=== PATIENT | female | born 1970 | race Caucasian/White ===

== ENCOUNTER 2016-08-31 13:06 | Emergency (ER) | payer OTHER ==
[2016-08-31] MEDS ORDERED: IPRATROPIUM 0.5 MG/2.5 ML NEBU INHALATION STA (13:54)
[2016-08-31] MEDS ORDERED: predniSONE 20 MG TAB PO STA (13:54)
[2016-08-31] MEDS ORDERED: ALBUTEROL NEBULIZED 2.5 MG/3 ML INHALATION STA ×2 (13:56→15:57)
[2016-08-31 14:22] LABS: Anisocytosis Slight; Basophils % (A) 0 %; CH 27.2; CHCM 30.5; Eosinophils # (A) 0.1 k/uL (0-0.7); Eosinophils % (A) 1 %; HCT 41.8 % (34.0-46.0); HDW 2.84; HGB 12.7 gm/dL (11.4-16.0); Hypochromasia Moderate; Luc % (Auto) 1; Lymphocytes # (A) 0.7 k/uL (1.0-4.8); Lymphocytes % (A) 8 %; MCH 27.2 pg (25.0-35.0); MCHC 30.4 g/dL (31.0-37.0); MCV 89.4 fL (80.0-100.0); Mean Platelet Volume 6.1; Monocytes # (A) 0.3 k/uL (0-1.0); Monocytes % (A) 4 %; Neutrophils # (A) 8.5 k/uL (1.3-7.7); Neutrophils % (A) 87 %; RBC 4.67 m/uL (3.80-5.40); RDW 16.5 % (11.5-15.5); WBC 9.7 k/uL (3.8-10.6); WBC (Perox) 9.46
[2016-08-31 14:30] LABS: Anion Gap 7 mmol/L; Blood Urea Nitrogen 18 mg/dL (7-17); Calcium 9.2 mg/dL (8.4-10.2); Carbon Dioxide 39 mmol/L (22-30); Chloride 94 mmol/L (98-107); Glucose 116 mg/dL (74-99); Non-African American GFR(MDRD) >60 (>60 ml/min/1.73 sqM); Sodium 140 mmol/L (137-145)
--- NOTE | 2016-08-31 14:56 | XR ---
EXAMINATION TYPE: XR chest 2V DATE OF EXAM: 08/31/2016 2:31 PM COMPARISON: Prior chest x-ray July 2016, June HISTORY: Difficulty breathing, emphysema TECHNIQUE: Frontal and lateral views of the chest are obtained. FINDINGS: Abnormal increased attenuation within the right upper lobe is not well seen, increased att enuation is better seen along the major fissure on the lateral exam. No pneumothorax or pleural effus ion. Cardiac mediastinal silhouette, pulmonary vascularity and eder are not significantly changed. Th ere are overlying cardiac leads. IMPRESSION: There is some thickening along the major fissure which appears improved as compared to p rior exam suggesting improvement in aeration.
--- NOTE | 2016-08-31 15:34 | ED ---
SOB HPI - General Chief Complaint: Shortness of Breath Stated Complaint: YOHANA Time Seen by Provider: 08/31/16 13:41 Source: patient, RN notes reviewed Mode of arrival: wheelchair Limitations: no limitations - History of Present Illness Initial Comments: This patient is a 45-year-old woman with history of COPD who presents with worsening of her underlying shortness of breath. The patient states that this been going on for 2-3 days. She is also having a bit of a nonproductive cough. She is not having any fever or chills, chest pain, change in urination, dark tarry or bloody stool. MD Complaint: shortness of breath -: days(s) Severity: moderate Consistency: constant Improves With: oxygen Worsens With: exertion Known History Of: COPD Context: recent URI Associated Symptoms: cough Treatments Prior to Arrival: bronchodilator - Related Data Home Medications Medication Instructions Recorded Confirmed Albuterol Inhaler [Ventolin Hfa 2 puff INHALATION RT-Q6H PRN 01/03/14 08/31/16 Inhaler] Omeprazole [PriLOSEC] 40 mg PO BID 01/03/14 08/31/16 Multivitamins, Thera [Multivitamin] 1 tab PO DAILY 12/24/14 08/31/16 risperiDONE 3 mg PO HS 12/24/14 08/31/16 traZODone HCL 300 mg PO HS 12/24/14 08/31/16 buPROPion SR [Wellbutrin SR] 150 mg PO HS 04/30/15 08/31/16 Albuterol Nebulized [Ventolin 2.5 mg INHALATION RT-Q4H 03/24/16 08/31/16 Nebulized] Aspirin [Aspirin EC] 325 mg PO HS 03/24/16 08/31/16 Ipratropium [place] [Atrovent Hfa] 2 puff INHALATION RT-QID 07/07/16 08/31/16 HYDROcodone/APAP 10-325MG [[place] 1 tab PO TID PRN 07/08/16 08/31/16 10-325] rOPINIRole HCL 0.5 mg PO HS 07/18/16 08/31/16 Previous Rx's Medication Instructions Recorded Budesonide-Formot 160-4.5 Mcg 2 puff INHALATION RT-BID puff 07/13/16 [Symbicort 160-4.5 Mcg Inhaler] Theophylline 24 Hour [Akhil-24] 300 mg PO BID 30 Days 07/21/16 Azithromycin [Zithromax Z-pack] 250 mg PO DIRECTED #6 tab 08/31/16 Doxycycline Hyclate [Vibramycin] 100 mg PO BID #14 cap 08/31/16 predniSONE 60 mg PO DAILY #30 tab 08/31/16 Allergies Allergy/AdvReac Type Severity Reaction Status Date / Time aripiprazole [From Abilify] Allergy Rash/Hives Verified 08/31/16 13:45 honey Allergy Rash/Hives Verified 08/31/16 13:45 methadone [Methadone] Allergy Itching Verified 08/31/16 13:45 naproxen Allergy Rash/Hives Verified 08/31/16 13:45 sulfamethoxazole Allergy Rash/Hives Verified 08/31/16 13:45 [From Bactrim] tetracycline [Tetracycline] Allergy Rash/Hives Verified 08/31/16 13:45 trimethoprim [From Bactrim] Allergy Rash/Hives Verified 08/31/16 13:45 adhesive tape AdvReac Rash/Hives Verified 08/31/16 13:45 codeine AdvReac Abdominal Verified 08/31/16 13:45 Pain ketorolac tromethamine AdvReac Vomiting Verified 08/31/16 13:45 [From Toradol] pregabalin [From Lyrica] AdvReac Unknown Verified 08/31/16 13:45 tramadol HCl [From Ultram] AdvReac SEIZURES Verified 08/31/16 13:45 tromethamine AdvReac Nausea & Verified 08/31/16 13:45 Vomiting Review of Systems ROS Statement: Those systems with pertinent positive or pertinent negative responses have been documented in the HPI. ROS Other: All systems not noted in ROS Statement are negative. Constitutional: Denies: fever, chills ENT: Reports: congestion Respiratory: Reports: cough, dyspnea, wheezes. 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, cervical and lumbar spine spondylosis, chronic migraines, peptic ulcer disease/gastric ulcers, carpal tunnel disease bilaterally, herniated disc at level of C5-C6 and C7, cervical cancer, depression, cachexia and malnourishment and significant loss and total body protein mass Last Myocardial Infarction Date:: UNK History of Any Multi-Drug Resistant Organisms: MRSA Date of last positivie culture/infection: 06/18/2015 MDRO Source:: SPUTUM Past Surgical History: Section, Cholecystectomy, Hysterectomy, Tubal Ligation Additional Past Surgical History / Comment(s): x 2, colonoscopy with benign polypectomy. Past Anesthesia/Blood Transfusion Reactions: No Reported Reaction Additional Past Anesthesia/Blood Transfusion Reaction / Comment(s): Pt has never recieved blood. Past Psychological History: Anxiety, Bipolar, Depression Additional Psychological History / Comment(s): Pt resides with her son jessica. She performs her own ADLs. She has home O2 at 5 L/[place] ATC. She does not drive but her son takes her places. she uses a walker as needed. Per her old medical record dated 07/06/14 pt was seen in [facility] ER for suicide attempt and admitted to psych. Relates that she is an ongoing tobacco smoker-smokes 3 CIG/ DAY. She does not have experience. She has no international travels. Smoking Status: Former smoker Past Alcohol Use History: None Reported Additional Past Alcohol Use History / Comment(s): ADMITS TO SMOKING 3 CIG PER DAY. Past Drug Use History: Marijuana Additional Drug Use History / Comment(s): OCC MARIJUANA USE - Past Family History Father Family Medical History: No Reported History Additional Family Medical History / Comment(s): WAS AN ALCOHOLIC Mother Family Medical History: Cancer Additional Family Medical History / Comment(s): AT AGE 54-BOWEL CANCER General Exam Limitations: no limitations General appearance: alert Head exam: Present: atraumatic, normocephalic Course Vital Signs 08/31/16 08/31/16 08/31/16 13:26 15:01 15:09 Temperature 98.3 F Pulse Rate 108 H 95 95 Respiratory 28 H Rate Blood Pressure 98/66 O2 Sat by Pulse 80 L Oximetry 08/31/16 08/31/16 08/31/16 15:10 16:11 16:20 Temperature Pulse Rate 94 101 H 98 Respiratory 18 Rate Blood Pressure 101/66 O2 Sat by Pulse 98 Oximetry 08/31/16 08/31/16 08/31/16 16:33 17:11 17:12 Temperature 98.2 F Pulse Rate 100 106 H 105 H Respiratory 20 20 Rate Blood Pressure 127/82 141/79 O2 Sat by Pulse 93 L 93 L Oximetry 08/31/16 17:25 Temperature Pulse Rate 105 H Respiratory Rate Blood Pressure O2 Sat by Pulse Oximetry Medical Decision Making - Medical Decision Making Patient is a 45-year-old woman with history of COPD who presents with exacerbation of the same. The patient is feeling better following 3 treatments and at this point states that she would like to go home with the increase in her prednisone. She is well aware of her condition and will return if there is worsening to state that she was prior. She will follow-up with her balance truer. - Lab Data Result diagrams: 08/31/16 14:09 08/31/16 14:09 Lab Results 08/31/16 08/31/16 08/31/16 Range/Units 14:09 14:09 14:09 WBC 9.7 (3.8-10.6) k/uL RBC 4.67 (3.80-5.40) m/uL Hgb 12.7 (11.4-16.0) gm/dL Hct 41.8 (34.0-46.0) % MCV 89.4 (80.0-100.0) fL MCH 27.2 (25.0-35.0) pg MCHC 30.4 L (31.0-37.0) g/dL RDW 16.5 H (11.5-15.5) % Plt Count 518 H (150-450) k/uL Neutrophils % 87 % Lymphocytes % 8 % Monocytes % 4 % Eosinophils % 1 % Basophils % 0 % Neutrophils # 8.5 H (1.3-7.7) k/uL Lymphocytes # 0.7 L (1.0-4.8) k/uL Monocytes # 0.3 (0-1.0) k/uL Eosinophils # 0.1 (0-0.7) k/uL Basophils # 0.0 (0-0.2) k/uL Hypochromasia Moderate Anisocytosis Slight D-Dimer (<0.60) mg/L FEU Sodium (137-145) mmol/L Potassium (3.5-5.1) mmol/L Chloride (98-107) mmol/L Carbon Dioxide (22-30) mmol/L Anion Gap mmol/L BUN (7-17) mg/dL Creatinine (0.52-1.04) mg/dL Est GFR (MDRD) Af Amer (>60 ml/min/1.73 sqM) Est GFR (MDRD) Non-Af (>60 ml/min/1.73 sqM) Glucose (74-99) mg/dL Calcium (8.4-10.2) mg/dL Troponin I <0.012 (0.000-0.034) ng/mL NT-Pro-B Natriuret Pep 78 pg/mL 08/31/16 08/31/16 Range/Units 14:09 14:09 WBC (3.8-10.6) k/uL RBC (3.80-5.40) m/uL Hgb (11.4-16.0) gm/dL Hct (34.0-46.0) % MCV (80.0-100.0) fL MCH (25.0-35.0) pg MCHC (31.0-37.0) g/dL RDW (11.5-15.5) % Plt Count (150-450) k/uL Neutrophils % % Lymphocytes % % Monocytes % % Eosinophils % % Basophils % % Neutrophils # (1.3-7.7) k/uL Lymphocytes # (1.0-4.8) k/uL Monocytes # (0-1.0) k/uL Eosinophils # (0-0.7) k/uL Basophils # (0-0.2) k/uL Hypochromasia Anisocytosis D-Dimer 0.20 (<0.60) mg/L FEU Sodium 140 (137-145) mmol/L Potassium 5.0 (3.5-5.1) mmol/L Chloride 94 L (98-107) mmol/L Carbon Dioxide 39 H (22-30) mmol/L Anion Gap 7 mmol/L BUN 18 H (7-17) mg/dL Creatinine 0.38 L (0.52-1.04) mg/dL Est GFR (MDRD) Af Amer >60 (>60 ml/min/1.73 sqM) Est GFR (MDRD) Non-Af >60 (>60 ml/min/1.73 sqM) Glucose 116 H (74-99) mg/dL Calcium 9.2 (8.4-10.2) mg/dL Troponin I (0.000-0.034) ng/mL NT-Pro-B Natriuret Pep pg/mL - EKG Data -: EKG Interpreted by Me EKG shows normal: sinus rhythm (Rate 99 bpm), axis (Left axis deviation), intervals (Normal intervals), ST-T waves (Normal) Rate: normal Critical Care Time Critical Care Time: Yes (35 minutes) Disposition Clinical Impression: COPD exacerbation Disposition: HOME SELF-CARE Condition: Fair Instructions: COPD (Chronic Obstructive Pulmonary Disease) (ED) Prescriptions: Azithromycin [Zithromax Z-pack] 250 mg PO DIRECTED #6 tab Doxycycline Hyclate [Vibramycin] 100 mg PO BID #14 cap predniSONE 60 mg PO DAILY #30 tab Referrals: Italo John MD [Primary Care Provider] - 1-2 days
[2016-08-31 16:33] VITALS: RESP 20
[2016-08-31] MEDS ORDERED: IPRATROPIUM-ALBUTEROL 3 ML NEB INHALATION STA (16:49)
[2016-08-31] MEDS ORDERED: AZITHROMYCIN 500 MG TAB PO STA (16:55)
[2016-08-31 17:12] VITALS: BP 141/79; TEMP 98.2
[2016-08-31 17:13] VITALS: PULSE 105
== END 2016-08-31 17:35 | disposition home or self-care (01) ==
LOC: EC 13:06
DX: J44.1 Chronic obstructive pulmonary disease with (acute) exacerbation (principal); K27.9 Peptic ulcer, site unspecified, unspecified as acute or chronic, without hemorrhage or perforation; K21.9 Gastro-esophageal reflux disease without esophagitis; J45.909 Unspecified asthma, uncomplicated; F32.9 Major depressive disorder, single episode, unspecified; Z99.81 Dependence on supplemental oxygen; Z79.899 Other long term (current) drug therapy; Z79.82 Long term (current) use of aspirin; Z79.52 Long term (current) use of systemic steroids; Z88.1 Allergy status to other antibiotic agents; Z88.2 Allergy status to sulfonamides; Z88.8 Allergy status to other drugs, medicaments and biological substances; Z91.018 Allergy to other foods; Z88.5 Allergy status to narcotic agent; Z91.048 Other nonmedicinal substance allergy status; Z85.41 Personal history of malignant neoplasm of cervix uteri; F17.210 Nicotine dependence, cigarettes, uncomplicated; E78.5 Hyperlipidemia, unspecified; M19.90 Unspecified osteoarthritis, unspecified site; M47.816 Spondylosis without myelopathy or radiculopathy, lumbar region; M50.222 Other cervical disc displacement at C5-C6 level
CPT/HCPCS: 99291; 36415; 94640 ×2; 93005; 85379; 83880; 80048; 84484; 85025; 71020; J7512

== ENCOUNTER 2016-09-04 01:38 | Inpatient (IN) | payer OTHER ==
[2016-09-04] MEDS ORDERED: ALBUTEROL NEB (CONC) 2.5 MG/0.5 ML INHALATION STA (01:47)
[2016-09-04] MEDS ORDERED: methylPREDNISolone SOD SUCCI 125 MG/2 ML VIAL IV STA (01:48)
[2016-09-04] MEDS ORDERED: IPRATROPIUM 0.5 MG/2.5 ML NEBU INHALATION STA (01:48)
[2016-09-04] MEDS ORDERED: SODIUM CHLORIDE 0.9% 1,000 ML IV STA (01:48)
--- NOTE | 2016-09-04 01:52 | ED ---
General Adult HPI - General Stated complaint: YOHANA Time Seen by Provider: 09/04/16 01:47 Source: patient, RN notes reviewed Mode of arrival: wheelchair Limitations: no limitations - History of Present Illness Initial comments: Patient is a pleasant 45-year-old female with severe chronic COPD. Patient presents with difficulty breathing, worse especially over the past few hours. Patient has been using continuous nebulizer for the last hour at home. Patient does have occasional cough with yellow sputum. No fevers. No chest pain. Patient has had similar symptoms multiple times previously. Patient has been on BiPAP previously. - Related Data Home Medications Medication Instructions Recorded Confirmed Albuterol Inhaler [Ventolin Hfa 2 puff INHALATION RT-Q6H PRN 01/03/14 09/04/16 Inhaler] Omeprazole [PriLOSEC] 40 mg PO BID 01/03/14 09/04/16 Multivitamins, Thera [Multivitamin] 1 tab PO DAILY 12/24/14 09/04/16 risperiDONE 3 mg PO HS 12/24/14 09/04/16 traZODone HCL 300 mg PO HS 12/24/14 09/04/16 buPROPion SR [Wellbutrin SR] 150 mg PO HS 04/30/15 09/04/16 Albuterol Nebulized [Ventolin 2.5 mg INHALATION RT-Q4H 03/24/16 09/04/16 Nebulized] Aspirin [Aspirin EC] 325 mg PO HS 03/24/16 09/04/16 Ipratropium [place] [Atrovent Hfa] 2 puff INHALATION RT-QID 07/07/16 09/04/16 HYDROcodone/APAP 10-325MG [[place] 1 tab PO TID PRN 07/08/16 09/04/16 10-325] rOPINIRole HCL 0.5 mg PO HS 07/18/16 09/04/16 Previous Rx's Medication Instructions Recorded Budesonide-Formot 160-4.5 Mcg 2 puff INHALATION RT-BID puff 07/13/16 [Symbicort 160-4.5 Mcg Inhaler] Theophylline 24 Hour [Akhil-24] 300 mg PO BID 30 Days 07/21/16 Azithromycin [Zithromax Z-pack] 250 mg PO DIRECTED #6 tab 08/31/16 Doxycycline Hyclate [Vibramycin] 100 mg PO BID #14 cap 08/31/16 predniSONE 60 mg PO DAILY #30 tab 08/31/16 Allergies Allergy/AdvReac Type Severity Reaction Status Date / Time aripiprazole [From Abilify] Allergy Rash/Hives Verified 08/31/16 13:45 honey Allergy Rash/Hives Verified 08/31/16 13:45 methadone [Methadone] Allergy Itching Verified 08/31/16 13:45 naproxen Allergy Rash/Hives Verified 08/31/16 13:45 sulfamethoxazole Allergy Rash/Hives Verified 08/31/16 13:45 [From Bactrim] tetracycline [Tetracycline] Allergy Rash/Hives Verified 08/31/16 13:45 trimethoprim [From Bactrim] Allergy Rash/Hives Verified 08/31/16 13:45 adhesive tape AdvReac Rash/Hives Verified 08/31/16 13:45 codeine AdvReac Abdominal Verified 08/31/16 13:45 Pain ketorolac tromethamine AdvReac Vomiting Verified 08/31/16 13:45 [From Toradol] pregabalin [From Lyrica] AdvReac Unknown Verified 08/31/16 13:45 tramadol HCl [From Ultram] AdvReac SEIZURES Verified 08/31/16 13:45 tromethamine AdvReac Nausea & Verified 08/31/16 13:45 Vomiting Review of Systems ROS Statement: Those systems with pertinent positive or pertinent negative responses have been documented in the HPI. ROS Other: All systems not noted in ROS Statement are negative. Constitutional: Denies: fever, chills Eyes: Denies: eye pain ENT: Denies: ear pain Respiratory: Reports: cough, dyspnea Cardiovascular: Denies: chest pain Endocrine: Reports: fatigue Gastrointestinal: Denies: abdominal pain Genitourinary: Denies: dysuria Musculoskeletal: Denies: back pain Skin: Denies: rash Neurological: Denies: weakness Past Medical History Past Medical History: Asthma, Cancer, Chest Pain / Angina, COPD, GERD/Reflux, Hyperlipidemia, Osteoarthritis (OA) Additional Past Medical History / Comment(s): 02 dependent at 5 L/m nasal cannula, advanced COPD with an FEV1 of 27% of predicted, 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, cervical and lumbar spine spondylosis, chronic migraines, peptic ulcer disease/gastric ulcers, carpal tunnel disease bilaterally, herniated disc at level of C5-C6 and C7, cervical cancer, depression, cachexia and malnourishment and significant loss and total body protein mass Last Myocardial Infarction Date:: UNK History of Any Multi-Drug Resistant Organisms: MRSA Date of last positivie culture/infection: 06/18/2015 MDRO Source:: SPUTUM Past Surgical History: Section, Cholecystectomy, Hysterectomy, Tubal Ligation Additional Past Surgical History / Comment(s): x 2, colonoscopy with benign polypectomy. Past Anesthesia/Blood Transfusion Reactions: No Reported Reaction Additional Past Anesthesia/Blood Transfusion Reaction / Comment(s): Pt has never recieved blood. Past Psychological History: Anxiety, Bipolar, Depression Additional Psychological History / Comment(s): Pt resides with her son jessica. She performs her own ADLs. She has home O2 at 5 L/[place] ATC. She does not drive but her son takes her places. she uses a walker as needed. Per her old medical record dated 07/06/14 pt was seen in [facility] ER for suicide attempt and admitted to psych. Relates that she is an ongoing tobacco smoker-smokes 3 CIG/ DAY. She does not have experience. She has no international travels. Smoking Status: Former smoker Past Alcohol Use History: None Reported Additional Past Alcohol Use History / Comment(s): ADMITS TO SMOKING 3 CIG PER DAY. Past Drug Use History: Marijuana Additional Drug Use History / Comment(s): OCC MARIJUANA USE - Past Family History Father Family Medical History: No Reported History Additional Family Medical History / Comment(s): WAS AN ALCOHOLIC Mother Family Medical History: Cancer Additional Family Medical History / Comment(s): AT AGE 54-BOWEL CANCER General Exam Limitations: no limitations General appearance: alert, in distress (Respiratory) Head exam: Present: atraumatic Eye exam: Present: normal appearance, PERRL ENT exam: Present: normal oropharynx Neck exam: Present: normal inspection Respiratory exam: Present: respiratory distress, wheezes, decreased breath sounds Cardiovascular Exam: Present: tachycardia GI/Abdominal exam: Present: soft. Absent: tenderness Extremities exam: Present: normal inspection. Absent: pedal edema, calf tenderness Neurological exam: Present: alert Psychiatric exam: Present: normal affect, normal mood Skin exam: Absent: rash Course Vital Signs 09/04/16 09/04/16 09/04/16 01:47 01:55 02:05 Temperature 98.0 F Pulse Rate 140 H 117 H 119 H Respiratory 28 H Rate Blood Pressure 140/82 O2 Sat by Pulse 94 L Oximetry 09/04/16 03:08 Temperature Pulse Rate 117 H Respiratory 18 Rate Blood Pressure 140/82 O2 Sat by Pulse 92 L Oximetry EKG Findings - EKG Comments: EKG Findings:: Sinus tachycardia 117. Normal intervals. Left axis. Poor R- wave progression. Septal Q waves. Medical Decision Making - Medical Decision Making Patient improved with BiPAP. Patient reevaluated and updated. Case discussed with Dr. Kaur, who will admit for Dr. John. Pulmonary will be consult. Admission orders written. - Lab Data Result diagrams: 09/04/16 02:09 09/04/16 02:09 Lab Results 09/04/16 09/04/16 Range/Units 02:09 02:09 WBC 16.3 H (3.8-10.6) k/uL RBC 4.88 (3.80-5.40) m/uL Hgb 13.0 (11.4-16.0) gm/dL Hct 43.1 (34.0-46.0) % MCV 88.2 (80.0-100.0) fL MCH 26.5 (25.0-35.0) pg MCHC 30.1 L (31.0-37.0) g/dL RDW 16.4 H (11.5-15.5) % Plt Count 556 H (150-450) k/uL Neutrophils % (Manual) 61.0 % Band Neutrophils % 26.0 % Lymphocytes % (Manual) 10.0 % Monocytes % (Manual) 3.0 % Neutrophils # (Manual) 14.2 H (1.3-7.7) k/uL Lymphocytes # (Manual) 1.6 (1.0-4.8) k/uL Monocytes # (Manual) 0.5 (0-1.0) k/uL Nucleated RBCs 0 (0-0) /100 WBC Manual Slide Review Performed Hypochromasia Moderate Anisocytosis Slight Sodium 145 (137-145) mmol/L Potassium 4.1 (3.5-5.1) mmol/L Chloride 97 L (98-107) mmol/L Carbon Dioxide 41 H* (22-30) mmol/L Anion Gap 7 mmol/L BUN 18 H (7-17) mg/dL Creatinine 0.30 L (0.52-1.04) mg/dL Est GFR (MDRD) Af Amer >60 (>60 ml/min/1.73 sqM) Est GFR (MDRD) Non-Af >60 (>60 ml/min/1.73 sqM) Glucose 132 H (74-99) mg/dL Calcium 9.1 (8.4-10.2) mg/dL Magnesium 1.9 (1.6-2.3) mg/dL Total Bilirubin 0.3 (0.2-1.3) mg/dL AST 20 (14-36) U/L ALT 33 (9-52) U/L Alkaline Phosphatase 71 (38-126) U/L Total Protein 6.5 (6.3-8.2) g/dL Albumin 3.7 (3.5-5.0) g/dL - Radiology Data Radiology results: image reviewed (Chest x-ray shows COPD and pulmonary fibrotic changes. No significant change compared to previous exam.) Critical Care Time Critical Care Time: Yes Total Critical Care Time: 34 Disposition Clinical Impression: Acute respiratory failure, Acute exacerbation of chronic obstructive airways disease Disposition: ADMITTED IP TO THIS HOSP Referrals: Italo John MD [Primary Care Provider] - 1-2 days
[2016-09-04 02:20] LABS: Anisocytosis Slight; CH 27.1; CHCM 30.9; HCT 43.1 % (34.0-46.0); HDW 3.07; Hypochromasia Moderate; Immature Gran Flag Marked; MCH 26.5 pg (25.0-35.0); MCHC 30.1 g/dL (31.0-37.0); MCV 88.2 fL (80.0-100.0); Mean Platelet Volume 6.8; RBC 4.88 m/uL (3.80-5.40); RDW 16.4 % (11.5-15.5); WBC 16.3 k/uL (3.8-10.6); WBC (Perox) 17.23
--- NOTE | 2016-09-04 02:21 | XR ---
EXAMINATION TYPE: XR chest 1V portable DATE OF EXAM: 09/04/2016 2:15 AM COMPARISON: 08/31/2016 HISTORY: Short of breath TECHNIQUE: Single frontal view of the chest is obtained. FINDINGS: There is no heart failure no confluent pneumonic infiltrate. There is pulmonary hyperinfla tion. Heart size is normal. There are no hilar masses. There is slight coarsening of interstitial [place]. IMPRESSION: COPD and pulmonary fibrotic changes. No significant change compared to last exam. Normal heart.
[2016-09-04 02:29] LABS: ALT 33 U/L (9-52); AST 20 U/L (14-36); Alkaline Phosphatase 71 U/L (38-126); Blood Urea Nitrogen 18 mg/dL (7-17); Calcium 9.1 mg/dL (8.4-10.2); Chloride 97 mmol/L (98-107); Glucose 132 mg/dL (74-99); Magnesium 1.9 mg/dL (1.6-2.3); Non-African American GFR(MDRD) >60 (>60 ml/min/1.73 sqM); Potassium 4.1 mmol/L (3.5-5.1); Sodium 145 mmol/L (137-145); Total Bilirubin 0.3 mg/dL (0.2-1.3); Total Protein 6.5 g/dL (6.3-8.2)
[2016-09-04 02:35] LABS: Anion Gap 7 mmol/L
[2016-09-04 02:37] LABS: Carbon Dioxide 41 mmol/L (22-30)
[2016-09-04 02:53] LABS: Add Differential Manual Differential
[2016-09-04 02:56] LABS: Manual Review Performed; Nucleated Red Blood Cells 0 /100 WBC (0-0); Total Cells Counted 200
[2016-09-04] MEDS ORDERED: LORazepam 2 MG/ML SYRINGE IV STA (03:39)
[2016-09-04] MEDS: IPRATROPIUM-ALBUTEROL 3 ML NEB INHALATION PRN ×2 (04:35→23:39)
[2016-09-04] MEDS: methylPREDNISolone SOD SUCCI 125 MG/2 ML VIAL IV SCH ×3 (06:09→17:04)
[2016-09-04] MEDS: IPRATROPIUM-ALBUTEROL 3 ML NEB INHALATION SCH ×4 (08:07→19:58)
[2016-09-04 11:18] LABS: Hemoglobin A1C 6.3 % (4.2-6.1)
[2016-09-04] MEDS: HYDROcodone/APAP 10-325MG 1 EACH TAB PO PRN (11:33)
[2016-09-04] MEDS: HEPARIN SODIUM,PORCINE 5,000 UNIT/ML 1 ML VIAL SQ SCH ×2 (11:33→17:05)
[2016-09-04] MEDS: THEOPHYLLINE 24 HOUR 300 MG CAP.ER.24H PO SCH (11:33)
[2016-09-04] MEDS: PANTOPRAZOLE 40 MG TABLET PO SCH ×2 (11:33→17:04)
[2016-09-04] MEDS: LEVOFLOXACIN 500MG-D5W PMX 500 MG in DEXTROSE/WATER 1 100ML.BAG IVPB SCH (11:36)
[2016-09-04 11:53] LABS: Glucose,Whole Blood 141 mg/dL (75-99)
[2016-09-04 12:44] LABS: ABG Base Excess 10.8 mmol/L; ABG HCO3 38 mmol/L (21-25); ABG PCO2 84 mmHg (35-45); ABG PH 7.28 (7.35-7.45); ABG PO2 73 mmHg (83-108); ABG TCO2 40 mmol/L (19-24)
[2016-09-04] MEDS: INSULIN LISPRO (humaLOG) 300 UNIT/3 ML VIAL SQ SCH ×3 (12:48→23:14)
--- NOTE | 2016-09-04 13:17 | P.CNPUL ---
History of Present Illness Consult date: 09/04/16 Reason for consult: dyspnea, COPD History of present illness: 45-year-old female patient with advanced end-stage COPD who has had multiple hospitalization for COPD exacerbation. In the past year of 2016, the patient at least 6 hospitalization last one being in June 2016. She unfortunately continues to smoke cigarettes. She is oxygen dependent. She is also steroid dependent and she's been taking 20 mg of prednisone a daily basis. The patient has been noncompliant to smoking . She has been maintained on a combination of Spiriva and Symbicort on outpatient basis in addition to her daily prednisone. Her baseline FEV1 is around 27% of predicted. She has chronic hypoxic respiratory failure. She has had previous MRSA pneumonia. The patient came in for increased shortness of breath and at time of my evaluation this morning the patient was in considerable respiratory distress and she was using accessory muscles of breathing. She was placed on BiPAP accordingly at a pressure of 10 over 5 cm of water. Blood gases while the patient 100% nonrebreather showed a pH of 7.28 with a pCO2 of 82 and pO2 of 73. Chest x-ray shows no evidence of any pneumonia and there is extensive hyperinflation. No fever. No chills. No change in mental status. No nausea. No vomiting. She has a congested cough. She is unable to bring up any sputum. Review of Systems Patient is in considerable respiratory distress. She is placed back on the BiPAP at this point. Rest of the positive findings are most above. She has been noncompliant to treatment. She is been excessively cachectic and malnourished. She has significant loss and total body protein mass. Past Medical History Past Medical History: Asthma, Cancer, Chest Pain / Angina, COPD, GERD/Reflux, Hyperlipidemia, Osteoarthritis (OA) Additional Past Medical History / Comment(s): COPD which is been end-stage with frequent hospitalization for acute COPD exacerbation. The patient has chronic hypoxic and hypercapnic respiratory failure. 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, cervical and lumbar spine spondylosis, chronic migraines, peptic ulcer disease/gastric ulcers, carpal tunnel disease bilaterally, herniated disc at level of C5-C6 and C7, cervical cancer, depression, cachexia and malnourishment and significant loss and total body protein mass Last Myocardial Infarction Date:: UNK History of Any Multi-Drug Resistant Organisms: MRSA Date of last positivie culture/infection: 06/18/2015 MDRO Source:: SPUTUM Past Surgical History: Section, Cholecystectomy, Hysterectomy, Tubal Ligation Additional Past Surgical History / Comment(s): x 2, colonoscopy with benign polypectomy. Past Anesthesia/Blood Transfusion Reactions: No Reported Reaction Additional Past Anesthesia/Blood Transfusion Reaction / Comment(s): Pt has never recieved blood. Past Psychological History: Anxiety, Bipolar, Depression Additional Psychological History / Comment(s): Pt resides with her son jessica. She performs her own ADLs. She has home O2 at 5 L/[place] ATC. She does not drive but her son takes her places. she uses a walker as needed. Per her old medical record dated 07/06/14 pt was seen in [facility] ER for suicide attempt and admitted to psych. Relates that she is an ongoing tobacco smoker-smokes 3 CIG/ DAY. She does not have experience. She has no international travels. Smoking Status: Former smoker Past Alcohol Use History: None Reported Additional Past Alcohol Use History / Comment(s): ADMITS TO SMOKING 3 CIG PER DAY. Past Drug Use History: Marijuana Additional Drug Use History / Comment(s): OCC MARIJUANA USE - Past Family History Father Family Medical History: No Reported History Additional Family Medical History / Comment(s): WAS AN ALCOHOLIC Mother Family Medical History: Cancer Additional Family Medical History / Comment(s): AT AGE 54-BOWEL CANCER Medications and Allergies Home Medications Medication Instructions Recorded Confirmed Type Albuterol Inhaler [Ventolin Hfa 2 puff INHALATION RT-Q6H PRN 01/03/14 09/04/16 History Inhaler] Omeprazole [PriLOSEC] 40 mg PO BID 01/03/14 09/04/16 History Multivitamins, Thera [Multivitamin] 1 tab PO DAILY 12/24/14 09/04/16 History risperiDONE 3 mg PO HS 12/24/14 09/04/16 History traZODone HCL 300 mg PO HS 12/24/14 09/04/16 History buPROPion SR [Wellbutrin SR] 150 mg PO HS 04/30/15 09/04/16 History Albuterol Nebulized [Ventolin 2.5 mg INHALATION RT-Q4H 03/24/16 09/04/16 History Nebulized] Aspirin [Aspirin EC] 325 mg PO HS 03/24/16 09/04/16 History Ipratropium [place] [Atrovent Hfa] 2 puff INHALATION RT-QID 07/07/16 09/04/16 History HYDROcodone/APAP 10-325MG [[place] 1 tab PO TID PRN 07/08/16 09/04/16 History 10-325] rOPINIRole HCL 0.5 mg PO HS 07/18/16 09/04/16 History predniSONE 20 mg PO DAILY 09/04/16 09/04/16 History Allergies Allergy/AdvReac Type Severity Reaction Status Date / Time aripiprazole [From Abilify] Allergy Rash/Hives Verified 09/04/16 11:34 honey Allergy Rash/Hives Verified 09/04/16 11:34 methadone [Methadone] Allergy Itching Verified 09/04/16 11:34 naproxen Allergy Rash/Hives Verified 09/04/16 11:34 sulfamethoxazole Allergy Rash/Hives Verified 09/04/16 11:34 [From Bactrim] tetracycline [Tetracycline] Allergy Rash/Hives Verified 09/04/16 11:34 trimethoprim [From Bactrim] Allergy Rash/Hives Verified 09/04/16 11:34 adhesive tape AdvReac Rash/Hives Verified 09/04/16 11:34 codeine AdvReac Abdominal Verified 09/04/16 11:34 Pain ketorolac tromethamine AdvReac Vomiting Verified 09/04/16 11:34 [From Toradol] pregabalin [From Lyrica] AdvReac Unknown Verified 09/04/16 11:34 tramadol HCl [From Ultram] AdvReac SEIZURES Verified 09/04/16 11:34 tromethamine AdvReac Nausea & Verified 09/04/16 11:34 Vomiting Physical Exam Vitals: Vital Signs Temp Pulse Pulse Resp BP BP Pulse Ox 09/04/16 12:00 128 H 09/04/16 11:47 130 H 09/04/16 08:21 126 H 09/04/16 08:09 120 H 09/04/16 07:57 120 H 09/04/16 07:49 98.1 F 119 H 18 153/73 94 L 09/04/16 05:37 118 H 24 09/04/16 04:45 124 H 09/04/16 04:35 122 H 09/04/16 04:20 98.0 F 115 H 24 166/86 94 L 09/04/16 03:57 97.8 F 125 H 22 163/91 92 L Intake and Output 09/03/16 09/04/16 09/04/16 22:59 06:59 14:59 Output Total 0 Balance 0 Output: Urine 0 Other: # Voids 0 # Bowel Movements 0 Weight 45.2 kg Thin and frail and cachectic female patient a [id number] degree of respirator distress and she is using a time so it is a muscle breathing. She is also performing pursed of breathing.Head exam was generally normal. There was no scleral icterus or corneal arcus. Mucous membranes were moist. Neck is supple there is no JVDs no goiter or neck masses. Lungs sounds are markedly diminished and there is diffuse expiratory wheezes throughout lung is bilaterally and there is progression of expiratory phase of breathing.Cardiac exam revealed the PMI to be normally situated and sized. The rhythm was regular and no extrasystoles were noted during several minutes of auscultation. The first and second heart sounds were normal and physiologic splitting of the second heart sound was noted. There were no murmurs, rubs, clicks, or gallops.Abdominal exam revealed normal bowel sounds. The abdomen was soft, non- tender, and without masses, organomegaly, or appreciable enlargement of the abdominal aorta. Examination of the extremities revealed easily palpable radial , femoral and pedal pulses. There was no cyanosis, clubbing or edema. neurologically she is still awake and following commands and answering questions. She has extensive muscle atrophy and she is quite cachectic with significant loss and total body protein mass. Results - Laboratory Findings CBC and BMP: 09/04/16 02:09 09/04/16 02:09 ABG ABG pH 7.28 (7.35-7.45) L 09/04/16 12:22 ABG pCO2 84 mmHg (35-45) H* 09/04/16 12:22 ABG pO2 73 mmHg (83-108) L 09/04/16 12:22 ABG O2 Saturation 91.0 % (94-97) L 09/04/16 12:22 Abnormal lab findings: Abnormal Labs 09/04/16 09/04/16 09/04/16 05:06 05:06 11:50 ABG pH ABG pCO2 ABG pO2 ABG HCO3 ABG Total CO2 ABG O2 Saturation POC Glucose (mg/dL) 141 H Hemoglobin A1c 6.3 H Plasma Lactic Acid Tim 0.6 L 09/04/16 12:22 ABG pH 7.28 L ABG pCO2 84 H* ABG pO2 73 L ABG HCO3 38 H ABG Total CO2 40 H ABG O2 Saturation 91.0 L POC Glucose (mg/dL) Hemoglobin A1c Plasma Lactic Acid Tim - Diagnostic Findings Chest x-ray: image reviewed Assessment and Plan Plan: Assessment 1 advanced end-stage COPD with a baseline FEV1 of 27% of predicted 2 acute COPD exacerbation with worsening shortness of breath 3 acute on top of chronic hypercapnic respiratory failure with a component of respiratory acidosis on the blood gas 4 chronic hypoxic respiratory failure with further decompensation in her oxygenation due to COPD exacerbation. Chest x-ray remains free of any pulmonary infiltrates. 4 chronic hypoxic respiratory failure and the patient has been maintained on a oxygen between 3-4 L/m nasal cannula 5 chronic steroid dependence and the patient has been taking Klonopin grams of prednisone a daily basis 6 cachectic/catabolic state secondary to advanced COPD 7 nicotine addiction/smoking 8 cervical cancer 9 cervical spondylosis and lumbar spine spondylosis 10 peptic ulcer disease 11 remote history of MRSA pneumonia Plan Put the patient needs to back on the BiPAP. Continue the bronchodilators including a bit and Atrovent about treatments around the clock. Put the patient a combination of Perforomist and Pulmicort overestimates twice a day. IV Solu Medrol 60 milligrams's every 6 hours. Restart theophylline. Levaquin as an empiric antibiotic coverage. Nicotine replacement therapy with a patch. Smoking cessation counseling. Monitor the surgical status very closely and monitor the blood gases. May need intubation if there is further decompensation the breathing. We'll continue to follow. Outcome is obviously poor long-term basis due to advanced lung disease.
--- NOTE | 2016-09-04 15:21 | P.HPIM ---
History of Present Illness H&P Date: 09/04/16 Chief Complaint: YOHANA 44-year-old with advanced COPD that is admitted multiple times in the hospital with acute exacerbation and difficulty breathing. Comes in to the hospital with difficulty breathing that has progressively gotten worse over last few days. Patient continues to smoke cigarettes at this time. Patient has been taking 20 mg of prednisone at home and maintained on breathing treatments however patient comes in the hospital with risks worsening of breathing. Patient currently is lethargic. Patient was noted to have a arterial blood gas post slightly acidotic. She was started on BiPAP was given a dose of Solu- Medrol 125 mg and given breathing treatments. Patient however has been refusing BiPAP and removes it. Patient continues to have a cough at this time however is not able to bring up any sputum. Patient's FEV1 is around 27% on the last pulmonary function tests. Chest x-ray did not reveal any acute abnormalities Review of Systems Deferred Past Medical History Past Medical History: Asthma, Cancer, Chest Pain / Angina, COPD, GERD/Reflux, Hyperlipidemia, Osteoarthritis (OA) Additional Past Medical History / Comment(s): COPD which is been end-stage with frequent hospitalization for acute COPD exacerbation. The patient has chronic hypoxic and hypercapnic respiratory failure. 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, cervical and lumbar spine spondylosis, chronic migraines, peptic ulcer disease/gastric ulcers, carpal tunnel disease bilaterally, herniated disc at level of C5-C6 and C7, cervical cancer, depression, cachexia and malnourishment and significant loss and total body protein mass Last Myocardial Infarction Date:: UNK History of Any Multi-Drug Resistant Organisms: MRSA Date of last positivie culture/infection: 06/18/2015 MDRO Source:: SPUTUM Past Surgical History: Section, Cholecystectomy, Hysterectomy, Tubal Ligation Additional Past Surgical History / Comment(s): x 2, colonoscopy with benign polypectomy. Past Anesthesia/Blood Transfusion Reactions: No Reported Reaction Additional Past Anesthesia/Blood Transfusion Reaction / Comment(s): Pt has never recieved blood. Past Psychological History: Anxiety, Bipolar, Depression Additional Psychological History / Comment(s): Pt resides with her son jessica. She performs her own ADLs. She has home O2 at 5 L/[place] ATC. She does not drive but her son takes her places. she uses a walker as needed. Per her old medical record dated 07/06/14 pt was seen in [facility] ER for suicide attempt and admitted to psych. Relates that she is an ongoing tobacco smoker-smokes 3 CIG/ DAY. She does not have experience. She has no international travels. Smoking Status: Former smoker Past Alcohol Use History: None Reported Additional Past Alcohol Use History / Comment(s): ADMITS TO SMOKING 3 CIG PER DAY. Past Drug Use History: Marijuana Additional Drug Use History / Comment(s): OCC MARIJUANA USE - Past Family History Father Family Medical History: No Reported History Additional Family Medical History / Comment(s): WAS AN ALCOHOLIC Mother Family Medical History: Cancer Additional Family Medical History / Comment(s): AT AGE 54-BOWEL CANCER Medications and Allergies Home Medications Medication Instructions Recorded Confirmed Type Albuterol Inhaler [Ventolin Hfa 2 puff INHALATION RT-Q6H PRN 01/03/14 09/04/16 History Inhaler] Omeprazole [PriLOSEC] 40 mg PO BID 01/03/14 09/04/16 History Multivitamins, Thera [Multivitamin] 1 tab PO DAILY 12/24/14 09/04/16 History risperiDONE 3 mg PO HS 12/24/14 09/04/16 History traZODone HCL 300 mg PO HS 12/24/14 09/04/16 History buPROPion SR [Wellbutrin SR] 150 mg PO HS 04/30/15 09/04/16 History Albuterol Nebulized [Ventolin 2.5 mg INHALATION RT-Q4H 03/24/16 09/04/16 History Nebulized] Aspirin [Aspirin EC] 325 mg PO HS 03/24/16 09/04/16 History Ipratropium [place] [Atrovent Hfa] 2 puff INHALATION RT-QID 07/07/16 09/04/16 History HYDROcodone/APAP 10-325MG [[place] 1 tab PO TID PRN 07/08/16 09/04/16 History 10-325] rOPINIRole HCL 0.5 mg PO HS 07/18/16 09/04/16 History predniSONE 20 mg PO DAILY 09/04/16 09/04/16 History Allergies Allergy/AdvReac Type Severity Reaction Status Date / Time aripiprazole [From Abiliy] Allergy Rash/Hives Verified 09/04/16 11:34 honey Allergy Rash/Hives Verified 09/04/16 11:34 methadone [Methadone] Allergy Itching Verified 09/04/16 11:34 naproxen Allergy Rash/Hives Verified 09/04/16 11:34 sulfamethoxazole Allergy Rash/Hives Verified 09/04/16 11:34 [From Bactrim] tetracycline [Tetracycline] Allergy Rash/Hives Verified 09/04/16 11:34 trimethoprim [From Bactrim] Allergy Rash/Hives Verified 09/04/16 11:34 adhesive tape AdvReac Rash/Hives Verified 09/04/16 11:34 codeine AdvReac Abdominal Verified 09/04/16 11:34 Pain ketorolac tromethamine AdvReac Vomiting Verified 09/04/16 11:34 [From Toradol] pregabalin [From Lyrica] AdvReac Unknown Verified 09/04/16 11:34 tramadol HCl [From Ultram] AdvReac SEIZURES Verified 09/04/16 11:34 tromethamine AdvReac Nausea & Verified 09/04/16 11:34 Vomiting Physical Exam Vitals: Vital Signs Temp Pulse Pulse Resp BP BP Pulse Ox 09/04/16 12:00 98.0 F 128 H 120 H 18 144/76 96 09/04/16 11:47 130 H 09/04/16 08:21 126 H 09/04/16 08:09 120 H 09/04/16 07:57 120 H 09/04/16 07:49 98.1 F 119 H 18 153/73 94 L 09/04/16 05:37 118 H 24 09/04/16 04:45 124 H 09/04/16 04:35 122 H 09/04/16 04:20 98.0 F 115 H 24 166/86 94 L 09/04/16 03:57 97.8 F 125 H 22 163/91 92 L Intake and Output 09/04/16 09/04/16 09/04/16 06:59 14:59 22:59 Output Total 600 Balance -600 Output: Urine 600 Other: # Voids 0 2 # Bowel Movements 0 Weight 45.2 kg Gen. appearance patient is lethargic Follow lungs silent chest no wheezing or rhonchi patient Heart regular rate and rhythm no murmurs appreciated Abdomen is soft nontender no organomegaly Lower activities no edema appreciated Neurologic exam is deferred due to patient's current clinical condition. Results CBC & Chem 7: 09/04/16 02:09 09/04/16 02:09 Labs: Abnormal Lab Results - Last 24 Hours (Table) 09/04/16 09/04/16 09/04/16 Range/Units 05:06 05:06 11:50 ABG pH (7.35-7.45) ABG pCO2 (35-45) mmHg ABG pO2 (83-108) mmHg ABG HCO3 (21-25) mmol/L ABG Total CO2 (19-24) mmol/L ABG O2 Saturation (94-97) % POC Glucose (mg/dL) 141 H (75-99) mg/dL Hemoglobin A1c 6.3 H (4.2-6.1) % Plasma Lactic Acid Tim 0.6 L (0.7-2.0) mmol/L 09/04/16 Range/Units 12:22 ABG pH 7.28 L (7.35-7.45) ABG pCO2 84 H* (35-45) mmHg ABG pO2 73 L (83-108) mmHg ABG HCO3 38 H (21-25) mmol/L ABG Total CO2 40 H (19-24) mmol/L ABG O2 Saturation 91.0 L (94-97) % POC Glucose (mg/dL) (75-99) mg/dL Hemoglobin A1c (4.2-6.1) % Plasma Lactic Acid Tim (0.7-2.0) mmol/L Thrombosis Risk Factor Assmnt - Choose All That Apply Any of the Below Risk Factors Present?: Yes Each Factor Represents 1 point: Abnormal pulmonary function (COPD), Age 41-60 years Thrombosis Risk Factor Assessment Total Risk Factor Score: 2 Thrombosis Risk Factor Assessment Level: Low Risk Assessment and Plan Plan: Acute metabolic encephalopathy #2 acute on chronic hypoxic hypercapnic respiratory failure secondary to an acute exacerbation of COPD #3 ongoing tobacco use #4 nondistended respiratory acidosis #5 moderate to severe protein calorie malnutrition secondary to advanced COPD #6 cervical cancer #7 patient is currently lethargic patient should be maintained on BiPAP compliance is necessary. Continue IV steroids and breathing treatment. Theophylline was also restarted by pulmonary team.. GI prophylaxis for the high -dose steroids.
[2016-09-04 17:19] LABS: Glucose,Whole Blood 130 mg/dL (75-99)
[2016-09-04] MEDS ORDERED: IPRATROPIUM-ALBUTEROL 3 ML NEB INHALATION STA (18:04)
[2016-09-04] MEDS: ALPRAZolam 0.25 MG TAB PO PRN (18:35)
[2016-09-04 18:40] LABS: ABG PH 7.31 (7.35-7.45)
[2016-09-04 18:41] LABS: ABG Base Excess 10.3 mmol/L; ABG HCO3 37 mmol/L (21-25); ABG PCO2 76 mmHg (35-45); ABG PO2 96 mmHg (83-108); ABG TCO2 39 mmol/L (19-24)
[2016-09-04] MEDS ORDERED: PHENYLEPHRINE 10 MG/ML VIAL ONE (19:01)
[2016-09-04] MEDS ORDERED: ROCURONIUM BROMIDE 10 MG/ML 10 ML VIAL IV ONE (19:01)
[2016-09-04] MEDS ORDERED: PROPOFOL 10 MG/ML 20 ML VIAL IV ONE (19:01)
[2016-09-04] MEDS ORDERED: MIDAZOLAM 2 MG/2 ML VIAL ONE (19:01)
[2016-09-04] MEDS: PROPOFOL 500 MG in EMPTY BAG 1 BAG IV SCH (19:30)
[2016-09-04 19:31] LABS: Glucose,Whole Blood 146 mg/dL (75-99)
--- NOTE | 2016-09-04 19:37 | XR ---
EXAMINATION TYPE: XR chest 1V portable DATE OF EXAM: 09/04/2016 7:33 PM Comparison: 09/04/2016 Clinical History: 45-year-old female intubated, assess tube placement. Findings: ET tube tip is satisfactory. NG tube courses below the diaphragm. Heart is normal size. Hyperinflation with mild interstitial prominence. No consolidation or pleural e ffusion. Impression: 1. Satisfactory ET tube. 2. COPD and chronic changes. No definite acute process.
[2016-09-04 19:51] LABS: ABG Base Excess 9.9 mmol/L; ABG HCO3 38 mmol/L (21-25); ABG PCO2 101 mmHg (35-45); ABG PO2 144 mmHg (83-108); ABG TCO2 41 mmol/L (19-24)
[2016-09-04] MEDS: BUDESONIDE 0.5 MG/2 ML NEBU INHALATION SCH (19:58)
[2016-09-04] MEDS: FORMOTEROL FUMARATE 20 MCG/2 ML NEBU INHALATION SCH (19:58)
[2016-09-04] MEDS ORDERED: HYDROmorphone 1 MG/ML 1 ML SYRINGE IVP STA (20:00)
[2016-09-04] MEDS ORDERED: ARTIFICIAL TEARS-HYPROMELLOSE DROPS 15 ML BTL BOTH EYES PRN (20:23)
[2016-09-04] MEDS ORDERED: ACETAMINOPHEN IV (For NPO) 1,000 MG in EMPTY BAG 1 BAG IVPB ONE (20:23)
[2016-09-04] MEDS ORDERED: NALOXONE 0.4 MG/ML 1 ML VIAL IV PRN (20:23)
[2016-09-04] MEDS: SODIUM CHLORIDE 0.9% 1,000 ML IV SCH (20:30)
[2016-09-04 20:31] LABS: ALT 32 U/L (9-52); AST 41 U/L (14-36); Alkaline Phosphatase 74 U/L (38-126); Basophils # (A) 0.1 k/uL (0-0.2); Basophils % (A) 1 %; Blood Urea Nitrogen 16 mg/dL (7-17); CH 26.5; CHCM 28.7; Calcium 8.9 mg/dL (8.4-10.2); Chloride 96 mmol/L (98-107); Eosinophils # (A) 0.1 k/uL (0-0.7); Eosinophils % (A) 0 %; Glucose 148 mg/dL (74-99); HCT 41.2 % (34.0-46.0); HDW 2.94; HGB 12.1 gm/dL (11.4-16.0); Hypochromasia Marked; Luc % (Auto) 1; Lymphocytes % (A) 5 %; MCH 27.2 pg (25.0-35.0); MCHC 29.4 g/dL (31.0-37.0); MCV 92.7 fL (80.0-100.0); Magnesium 1.9 mg/dL (1.6-2.3); Mean Platelet Volume 6.8; Monocytes # (A) 0.7 k/uL (0-1.0); Monocytes % (A) 3 %; Neutrophils # (A) 18.6 k/uL (1.3-7.7); Neutrophils % (A) 91 %; Non-African American GFR(MDRD) >60 (>60 ml/min/1.73 sqM); Phosphorous 3.4 mg/dL (2.5-4.5); Potassium 4.7 mmol/L (3.5-5.1); RBC 4.45 m/uL (3.80-5.40); RDW 15.9 % (11.5-15.5); Sodium 142 mmol/L (137-145); Total Bilirubin 0.4 mg/dL (0.2-1.3); Total Protein 6.4 g/dL (6.3-8.2); WBC 20.5 k/uL (3.8-10.6); WBC (Perox) 20.39
[2016-09-04 20:35] LABS: Anion Gap 6 mmol/L
[2016-09-04] MEDS ORDERED: HYDROmorphone 1 MG/ML 1 ML SYRINGE ONE (20:40)
[2016-09-04 20:45] LABS: Carbon Dioxide 40 mmol/L (22-30)
[2016-09-04 20:59] LABS: Appearance,Urine Clear (Clear); Bilirubin,Urine Negative (Negative); Glucose,Urine (UA) Negative (Negative); Ketones,Urine Negative (Negative); Leukocyte Esterase,Urine Negative (Negative); Nitrite,Urine Negative (Negative); PH, Urine 6.5 (5.0-8.0); Protein,Urine Trace (Negative); Specific Gravity,Urine 1.007 (1.001-1.035); UA Billing (MACRO vs. MICRO) CHEM; Urobilinogen,Urine <2.0 mg/dL (<2.0)
[2016-09-04] MEDS: CHLORHEXIDINE GLUCONATE 15 ML CUP MUCOUS MEM SCH (22:17)
[2016-09-05] MEDS: HYDROmorphone 2 MG/ML 1 ML SYRINGE IVP PRN ×7 (00:11→23:42)
[2016-09-05] MEDS: INSULIN LISPRO (humaLOG) 300 UNIT/3 ML VIAL SQ SCH ×4 (00:15→17:37)
[2016-09-05 00:16] LABS: Glucose,Whole Blood 124 mg/dL (75-99)
[2016-09-05] MEDS ORDERED: ACETAMINOPHEN IV (For NPO) 1,000 MG in EMPTY BAG 1 BAG IVPB PRN (00:30)
[2016-09-05] MEDS: buPROPion SR 150 MG TABLET.ER PO SCH ×2 (01:32→23:32)
[2016-09-05] MEDS: ASPIRIN 325 MG TAB PO SCH ×2 (01:32→23:32)
[2016-09-05] MEDS: risperiDONE 1 MG TAB PO SCH ×2 (01:33→23:33)
[2016-09-05] MEDS: traZODone HCL 100 MG TAB PO SCH ×2 (01:34→23:33)
[2016-09-05] MEDS: THEOPHYLLINE 24 HOUR 300 MG CAP.ER.24H PO SCH ×2 (01:34→08:06)
[2016-09-05] MEDS: methylPREDNISolone SOD SUCCI 125 MG/2 ML VIAL IV SCH ×4 (01:35→17:35)
[2016-09-05] MEDS: HEPARIN SODIUM,PORCINE 5,000 UNIT/ML 1 ML VIAL SQ SCH ×4 (02:20→23:34)
[2016-09-05] MEDS: PROPOFOL 500 MG in EMPTY BAG 1 BAG IV SCH ×4 (02:42→22:37)
[2016-09-05] MEDS: IPRATROPIUM-ALBUTEROL 3 ML NEB INHALATION PRN (03:31)
[2016-09-05 05:02] LABS: Anisocytosis Slight; Basophils # (A) 0.1 k/uL (0-0.2); Basophils % (A) 0 %; CH 26.8; CHCM 29.4; Eosinophils % (A) 0 %; HCT 36.5 % (34.0-46.0); HDW 2.92; HGB 10.5 gm/dL (11.4-16.0); Hypochromasia Marked; Luc # (Auto) 0.19; Luc % (Auto) 1; Lymphocytes # (A) 0.9 k/uL (1.0-4.8); Lymphocytes % (A) 6 %; MCH 26.4 pg (25.0-35.0); MCHC 28.8 g/dL (31.0-37.0); MCV 91.4 fL (80.0-100.0); Mean Platelet Volume 7.1; Monocytes # (A) 0.5 k/uL (0-1.0); Monocytes % (A) 4 %; Neutrophils # (A) 13.3 k/uL (1.3-7.7); Neutrophils % (A) 89 %; RBC 3.99 m/uL (3.80-5.40); RDW 16.2 % (11.5-15.5); WBC 15.1 k/uL (3.8-10.6); WBC (Perox) 15.33
[2016-09-05 05:14] LABS: Anion Gap 5 mmol/L; Blood Urea Nitrogen 19 mg/dL (7-17); Calcium 8.8 mg/dL (8.4-10.2); Carbon Dioxide 38 mmol/L (22-30); Chloride 99 mmol/L (98-107); Glucose 98 mg/dL (74-99); Magnesium 1.8 mg/dL (1.6-2.3); Non-African American GFR(MDRD) >60 (>60 ml/min/1.73 sqM); Phosphorous 2.8 mg/dL (2.5-4.5); Potassium 4.8 mmol/L (3.5-5.1); Sodium 142 mmol/L (137-145)
[2016-09-05 05:25] LABS: ABG PH 7.32 (7.35-7.45)
[2016-09-05 05:26] LABS: ABG Base Excess 10.1 mmol/L; ABG HCO3 36 mmol/L (21-25); ABG PCO2 74 mmHg (35-45); ABG PO2 83 mmHg (83-108); ABG TCO2 39 mmol/L (19-24)
[2016-09-05] MEDS ORDERED: Phosphorus Replacement Protoco 1 EACH MISC MISCELLANE PRN (05:39)
[2016-09-05] MEDS ORDERED: Potassium Replacement Protocol 1 EACH MISC MISCELLANE PRN (05:39)
[2016-09-05] MEDS ORDERED: Magnesium Replacement Protocol 1 EACH MISC MISCELLANE PRN (05:39)
[2016-09-05 06:39] LABS: Glucose,Whole Blood 121 mg/dL (75-99)
--- NOTE | 2016-09-05 07:42 | XR ---
EXAMINATION TYPE: XR chest 1V portable DATE OF EXAM: 09/05/2016 6:30 AM Comparison: 09/04/2016 Clinical History: 45 year-old female tube placement Findings: Heart is normal size. Aorta and pulmonary vasculature within normal limits. Hyperinflation with mild interstitial prominence similar to prior. Patchy peripheral right midlung opacity is noted. There is some overlying external artifact in this region. ET tube is satisfactory. NG tube courses below the d iaphragm. NG tube sidehole is at the level of the GE junction. Impression: COPD and some patchy atelectasis or infiltrate at the peripheral right midlung. Some overlying kidney puller al artifact is present in this region.
[2016-09-05] MEDS: MAGNESIUM SULFATE-D5W PMX 1 GM in DEXTROSE/WATER 1 100ML.BAG IVPB SCH ×2 (07:56→10:22)
[2016-09-05] MEDS: PANTOPRAZOLE 40 MG/10 ML VIAL IV SCH (08:04)
[2016-09-05] MEDS: CHLORHEXIDINE GLUCONATE 15 ML CUP MUCOUS MEM SCH ×2 (08:06→20:30)
[2016-09-05] MEDS: FORMOTEROL FUMARATE 20 MCG/2 ML NEBU INHALATION SCH ×2 (08:08→19:47)
[2016-09-05] MEDS: BUDESONIDE 0.5 MG/2 ML NEBU INHALATION SCH ×2 (08:08→19:47)
[2016-09-05] MEDS: IPRATROPIUM-ALBUTEROL 3 ML NEB INHALATION SCH ×4 (08:08→19:47)
--- NOTE | 2016-09-05 11:53 | P.PN ---
Subjective 44-year-old with advanced COPD that is admitted multiple times in the hospital with acute exacerbation and difficulty breathing. Comes in to the hospital with difficulty breathing that has progressively gotten worse over last few days. Patient continues to smoke cigarettes at this time. Patient has been taking 20 mg of prednisone at home and maintained on breathing treatments however patient comes in the hospital with risks worsening of breathing. Patient currently is lethargic. Patient was noted to have a arterial blood gas post slightly acidotic. She was started on BiPAP was given a dose of Solu- Medrol 125 mg and given breathing treatments. Patient however has been refusing BiPAP and removes it. Patient continues to have a cough at this time however is not able to bring up any sputum. Patient's FEV1 is around 27% on the last pulmonary function tests. Chest x-ray did not reveal any acute abnormalities 09/05/2016 Patient was having increased work of breathing overnight. A repeated ABG was done which showed a pH of 7.2 and a pCO2 of 101. Hence patient was triaged ICU and patient was intubated and is currently on the ventilator. Patient is currently on 50 mics of propofol however is awake and able to follow commands. Patient apparently has a significant amount of oral an ET tube secretions are thick. Currently on 16 of respiratory rate, tidal volume of 350, FiO2 of 45% and a PEEP of 5 Objective - Vital Signs Vital signs: Vital Signs Temp 99.2 F 09/05/16 08:00 Pulse 86 09/05/16 11:44 Resp 35 H 09/05/16 10:30 BP 107/72 09/05/16 10:30 Pulse Ox 94 L 09/05/16 10:30 Intake & Output 09/04/16 09/05/16 09/05/16 18:59 06:59 18:59 Intake Total 1411.456 441.778 Output Total 600 505 190 Balance -600 906.456 251.778 Weight 45.2 kg 45.6 kg 45.6 kg Intake: IV 940 200 Sodium Chloride 0.9% 1, 940 200 000 ml @ 40 mls/hr IV . Q24H [facility] Rx#:[id number] Intake, IV Titration 71.456 241.778 Amount Magnesium Sulfate-D5w Pmx 200 1 gm In Dextrose/Water 1 100ml.bag @ 100 mls/hr IVPB Q1H [facility] Rx#: [id number] Propofol 500 mg In Empty 71.456 41.778 Bag 1 bag @ Titrate IV . Q0M [facility] Rx#:[id number] Oral 400 Output: Urine 600 505 190 Other: Voiding Method Indwelling Catheter # Voids 1 # Bowel Movements 0 0 - Exam Gen. appearance is currently on the ventilator and sedated Lungs diffuse wheezing appreciated anteriorly no rhonchi appreciated. Heart S1-S2 heard no murmurs appreciated Abdomen soft nontender organomegaly Lower extremity is no edema patient Neurologically patient is sedated. - Labs CBC & Chem 7: 09/05/16 04:20 09/05/16 04:20 Labs: Abnormal Lab Results - Last 24 Hours (Table) 09/04/16 09/04/16 09/04/16 Range/Units 11:50 12:22 16:58 WBC (3.8-10.6) k/uL Hgb (11.4-16.0) gm/dL MCHC (31.0-37.0) g/dL RDW (11.5-15.5) % Plt Count (150-450) k/uL Neutrophils # (1.3-7.7) k/uL Lymphocytes # (1.0-4.8) k/uL ABG pH 7.28 L (7.35-7.45) ABG pCO2 84 H* (35-45) mmHg ABG pO2 73 L (83-108) mmHg ABG HCO3 38 H (21-25) mmol/L ABG Total CO2 40 H (19-24) mmol/L ABG O2 Saturation 91.0 L (94-97) % Chloride (98-107) mmol/L Carbon Dioxide (22-30) mmol/L BUN (7-17) mg/dL Creatinine (0.52-1.04) mg/dL Glucose (74-99) mg/dL POC Glucose (mg/dL) 141 H 130 H (75-99) mg/dL Plasma Lactic Acid Tim (0.7-2.0) mmol/L AST (14-36) U/L Albumin (3.5-5.0) g/dL Urine Protein (Negative) 09/04/16 09/04/16 09/04/16 Range/Units 18:28 19:11 19:40 WBC (3.8-10.6) k/uL Hgb (11.4-16.0) gm/dL MCHC (31.0-37.0) g/dL RDW (11.5-15.5) % Plt Count (150-450) k/uL Neutrophils # (1.3-7.7) k/uL Lymphocytes # (1.0-4.8) k/uL ABG pH 7.31 L 7.20 L* (7.35-7.45) ABG pCO2 76 H* 101 H* (35-45) mmHg ABG pO2 144 H (83-108) mmHg ABG HCO3 37 H 38 H (21-25) mmol/L ABG Total CO2 39 H 41 H (19-24) mmol/L ABG O2 Saturation 98.0 H (94-97) % Chloride (98-107) mmol/L Carbon Dioxide (22-30) mmol/L BUN (7-17) mg/dL Creatinine (0.52-1.04) mg/dL Glucose (74-99) mg/dL POC Glucose (mg/dL) 146 H (75-99) mg/dL Plasma Lactic Acid Tim (0.7-2.0) mmol/L AST (14-36) U/L Albumin (3.5-5.0) g/dL Urine Protein (Negative) 09/04/16 09/04/16 09/04/16 Range/Units 19:45 19:57 19:57 WBC 20.5 H (3.8-10.6) k/uL Hgb (11.4-16.0) gm/dL MCHC 29.4 L (31.0-37.0) g/dL RDW 15.9 H (11.5-15.5) % Plt Count 572 H (150-450) k/uL Neutrophils # 18.6 H (1.3-7.7) k/uL Lymphocytes # (1.0-4.8) k/uL ABG pH (7.35-7.45) ABG pCO2 (35-45) mmHg ABG pO2 (83-108) mmHg ABG HCO3 (21-25) mmol/L ABG Total CO2 (19-24) mmol/L ABG O2 Saturation (94-97) % Chloride 96 L (98-107) mmol/L Carbon Dioxide 40 H* (22-30) mmol/L BUN (7-17) mg/dL Creatinine 0.31 L (0.52-1.04) mg/dL Glucose 148 H (74-99) mg/dL POC Glucose (mg/dL) (75-99) mg/dL Plasma Lactic Acid Tim (0.7-2.0) mmol/L AST 41 H (14-36) U/L Albumin 3.3 L (3.5-5.0) g/dL Urine Protein Trace H (Negative) 09/04/16 09/05/16 09/05/16 Range/Units 19:57 00:15 04:20 WBC 15.1 H (3.8-10.6) k/uL Hgb 10.5 L (11.4-16.0) gm/dL MCHC 28.8 L (31.0-37.0) g/dL RDW 16.2 H (11.5-15.5) % Plt Count 510 H (150-450) k/uL Neutrophils # 13.3 H (1.3-7.7) k/uL Lymphocytes # 0.9 L (1.0-4.8) k/uL ABG pH (7.35-7.45) ABG pCO2 (35-45) mmHg ABG pO2 (83-108) mmHg ABG HCO3 (21-25) mmol/L ABG Total CO2 (19-24) mmol/L ABG O2 Saturation (94-97) % Chloride (98-107) mmol/L Carbon Dioxide (22-30) mmol/L BUN (7-17) mg/dL Creatinine (0.52-1.04) mg/dL Glucose (74-99) mg/dL POC Glucose (mg/dL) 124 H (75-99) mg/dL Plasma Lactic Acid Tim <0.5 L (0.7-2.0) mmol/L AST (14-36) U/L Albumin (3.5-5.0) g/dL Urine Protein (Negative) 09/05/16 09/05/16 09/05/16 Range/Units 04:20 05:14 06:36 WBC (3.8-10.6) k/uL Hgb (11.4-16.0) gm/dL MCHC (31.0-37.0) g/dL RDW (11.5-15.5) % Plt Count (150-450) k/uL Neutrophils # (1.3-7.7) k/uL Lymphocytes # (1.0-4.8) k/uL ABG pH 7.32 L (7.35-7.45) ABG pCO2 74 H* (35-45) mmHg ABG pO2 (83-108) mmHg ABG HCO3 36 H (21-25) mmol/L ABG Total CO2 39 H (19-24) mmol/L ABG O2 Saturation (94-97) % Chloride (98-107) mmol/L Carbon Dioxide 38 H (22-30) mmol/L BUN 19 H (7-17) mg/dL Creatinine 0.30 L (0.52-1.04) mg/dL Glucose (74-99) mg/dL POC Glucose (mg/dL) 121 H (75-99) mg/dL Plasma Lactic Acid Tim (0.7-2.0) mmol/L AST (14-36) U/L Albumin (3.5-5.0) g/dL Urine Protein (Negative) Microbiology - Last 24 Hours (Table) 09/04/16 20:30 Gram Stain - Preliminary Sputum Sputum Culture - Preliminary 09/04/16 19:45 Urine Culture - Preliminary Urine,Catheterized Assessment and Plan Plan: Acute metabolic encephalopathy #2 acute on chronic hypoxic hypercapnic respiratory failure secondary to an acute exacerbation of COPD #3 ongoing tobacco use #4 nondistended respiratory acidosis #5 moderate to severe protein calorie malnutrition secondary to advanced COPD #6 cervical cancer Plan Discussed with the procurement coordinator. Patient be maintained on the ventilator for another 24 hours before weaning trials. Patient is currently sedated. Be started on OG tube feeding.
[2016-09-05] MEDS: LEVOFLOXACIN 500MG-D5W PMX 500 MG in DEXTROSE/WATER 1 100ML.BAG IVPB SCH (12:16)
[2016-09-05 12:38] LABS: Glucose,Whole Blood 138 mg/dL (75-99)
--- NOTE | 2016-09-05 14:15 | P.PN ---
Subjective 45-year-old female patient with advanced end-stage COPD who has had multiple hospitalization for COPD exacerbation. In the past year of 2016, the patient at least 6 hospitalization last one being in June 2016. She unfortunately continues to smoke cigarettes. She is oxygen dependent. She is also steroid dependent and she's been taking 20 mg of prednisone a daily basis. The patient has been noncompliant to smoking . She has been maintained on a combination of Spiriva and Symbicort on outpatient basis in addition to her daily prednisone. Her baseline FEV1 is around 27% of predicted. She has chronic hypoxic respiratory failure. She has had previous MRSA pneumonia. The patient came in for increased shortness of breath and at time of my evaluation this morning the patient was in considerable respiratory distress and she was using accessory muscles of breathing. She was placed on BiPAP accordingly at a pressure of 10 over 5 cm of water. Blood gases while the patient 100% nonrebreather showed a pH of 7.28 with a pCO2 of 82 and pO2 of 73. Chest x-ray shows no evidence of any pneumonia and there is extensive hyperinflation. No fever. No chills. No change in mental status. No nausea. No vomiting. She has a congested cough. She is unable to bring up any sputum. Note that the patient was being treated for acute COPD exacerbation, the patient became progressively more short of breath. She was utilizing BiPAP throughout the afternoon yesterday. She became more lethargic and obtunded and she was headed towards respiratory failure. The blood gas that was done at that time showed a pH of 7.2 with a pCO2 of 11 and pO2 of 44. At that point, the patient got moved to the intensive care unit the patient was intubated and placed on a mechanical ventilator. On 09/05/2016 the patient is being seen in follow-up. She is an assist-control mode of ventilation at the rate of 14, tidal volume of 350, FiO2 of 45% and a PEEP of 5. Morning blood gases showed a pH of 7.42 with a pCO2 of 74 and pO2 of 83. Peak air pressures around 33 with history care pressure of 16. The autoPEEP is at 7. Chest x-ray remains hyperinflated and there is some patchy atelectatic changes/infiltrate in the periphery of the right midlung. It acutely remains in a good location. The patient is sedated with Diprivan. She is calm and comfortable. She is symptoms with the mechanical ventilator. She is hemodynamically stable. Objective - Vital Signs Vital signs: Vital Signs Temp 97.8 F 09/05/16 12:00 Pulse 87 09/05/16 14:00 Resp 18 09/05/16 14:00 BP 116/77 09/05/16 14:00 Pulse Ox 96 09/05/16 14:00 Intake & Output 09/04/16 09/05/16 09/05/16 18:59 06:59 18:59 Intake Total 1411.456 661.778 Output Total 600 505 280 Balance -600 906.456 381.778 Weight 45.2 kg 45.6 kg 45.6 kg Intake: IV 940 420 Levofloxacin 500Mg-D5w 100 Pmx 500 mg In Dextrose/ Water 1 100ml.bag @ 100 mls/hr IVPB Q24H [facility] Rx#: [id number] Sodium Chloride 0.9% 1, 940 320 000 ml @ 40 mls/hr IV . Q24H [facility] Rx#:[id number] Intake, IV Titration 71.456 241.778 Amount Magnesium Sulfate-D5w Pmx 200 1 gm In Dextrose/Water 1 100ml.bag @ 100 mls/hr IVPB Q1H [facility] Rx#: [id number] Propofol 500 mg In Empty 71.456 41.778 Bag 1 bag @ Titrate IV . Q0M [facility] Rx#:[id number] Oral 400 Output: Urine 600 505 280 Other: Voiding Method Indwelling Catheter # Voids 1 # Bowel Movements 0 0 - Exam Intubated and a mechanical ventilator and she is calm and comfortable. Sedated with Diprivan. She has an orogastric and orotracheal tube both in place. Thin frail cachectic as mentioned and extremely malnourished.Head exam was generally normal. There was no scleral icterus or corneal arcus. Mucous membranes were moist. Neck is supple there is no JVDs a little neck masses. Lungs are diminished breath sounds bilaterally along with diffuse extremity wheezes heard throughout the lung cagle and there is pronation of expiratory phase of breathing.Cardiac exam revealed the PMI to be normally situated and sized. The rhythm was regular and no extrasystoles were noted during several minutes of auscultation. The first and second heart sounds were normal and physiologic splitting of the second heart sound was noted. There were no murmurs, rubs, clicks, or gallops.Abdominal exam revealed normal bowel sounds. The abdomen was soft, non-tender, and without masses, organomegaly, or appreciable enlargement of the abdominal aorta. My normal extremities. The patient diffuse muscle atrophy in the upper and lower extremities bilaterally. - Labs CBC & Chem 7: 09/05/16 04:20 09/05/16 04:20 Labs: Abnormal Lab Results - Last 24 Hours (Table) 09/04/16 09/04/16 09/04/16 Range/Units 16:58 18:28 19:11 WBC (3.8-10.6) k/uL Hgb (11.4-16.0) gm/dL MCHC (31.0-37.0) g/dL RDW (11.5-15.5) % Plt Count (150-450) k/uL Neutrophils # (1.3-7.7) k/uL Lymphocytes # (1.0-4.8) k/uL ABG pH 7.31 L (7.35-7.45) ABG pCO2 76 H* (35-45) mmHg ABG pO2 (83-108) mmHg ABG HCO3 37 H (21-25) mmol/L ABG Total CO2 39 H (19-24) mmol/L ABG O2 Saturation (94-97) % Chloride (98-107) mmol/L Carbon Dioxide (22-30) mmol/L BUN (7-17) mg/dL Creatinine (0.52-1.04) mg/dL Glucose (74-99) mg/dL POC Glucose (mg/dL) 130 H 146 H (75-99) mg/dL Plasma Lactic Acid Tim (0.7-2.0) mmol/L AST (14-36) U/L Albumin (3.5-5.0) g/dL Urine Protein (Negative) 09/04/16 09/04/16 09/04/16 Range/Units 19:40 19:45 19:57 WBC 20.5 H (3.8-10.6) k/uL Hgb (11.4-16.0) gm/dL MCHC 29.4 L (31.0-37.0) g/dL RDW 15.9 H (11.5-15.5) % Plt Count 572 H (150-450) k/uL Neutrophils # 18.6 H (1.3-7.7) k/uL Lymphocytes # (1.0-4.8) k/uL ABG pH 7.20 L* (7.35-7.45) ABG pCO2 101 H* (35-45) mmHg ABG pO2 144 H (83-108) mmHg ABG HCO3 38 H (21-25) mmol/L ABG Total CO2 41 H (19-24) mmol/L ABG O2 Saturation 98.0 H (94-97) % Chloride (98-107) mmol/L Carbon Dioxide (22-30) mmol/L BUN (7-17) mg/dL Creatinine (0.52-1.04) mg/dL Glucose (74-99) mg/dL POC Glucose (mg/dL) (75-99) mg/dL Plasma Lactic Acid Tim (0.7-2.0) mmol/L AST (14-36) U/L Albumin (3.5-5.0) g/dL Urine Protein Trace H (Negative) 09/04/16 09/04/16 09/05/16 Range/Units 19:57 19:57 00:15 WBC (3.8-10.6) k/uL Hgb (11.4-16.0) gm/dL MCHC (31.0-37.0) g/dL RDW (11.5-15.5) % Plt Count (150-450) k/uL Neutrophils # (1.3-7.7) k/uL Lymphocytes # (1.0-4.8) k/uL ABG pH (7.35-7.45) ABG pCO2 (35-45) mmHg ABG pO2 (83-108) mmHg ABG HCO3 (21-25) mmol/L ABG Total CO2 (19-24) mmol/L ABG O2 Saturation (94-97) % Chloride 96 L (98-107) mmol/L Carbon Dioxide 40 H* (22-30) mmol/L BUN (7-17) mg/dL Creatinine 0.31 L (0.52-1.04) mg/dL Glucose 148 H (74-99) mg/dL POC Glucose (mg/dL) 124 H (75-99) mg/dL Plasma Lactic Acid Tim <0.5 L (0.7-2.0) mmol/L AST 41 H (14-36) U/L Albumin 3.3 L (3.5-5.0) g/dL Urine Protein (Negative) 09/05/16 09/05/16 09/05/16 Range/Units 04:20 04:20 05:14 WBC 15.1 H (3.8-10.6) k/uL Hgb 10.5 L (11.4-16.0) gm/dL MCHC 28.8 L (31.0-37.0) g/dL RDW 16.2 H (11.5-15.5) % Plt Count 510 H (150-450) k/uL Neutrophils # 13.3 H (1.3-7.7) k/uL Lymphocytes # 0.9 L (1.0-4.8) k/uL ABG pH 7.32 L (7.35-7.45) ABG pCO2 74 H* (35-45) mmHg ABG pO2 (83-108) mmHg ABG HCO3 36 H (21-25) mmol/L ABG Total CO2 39 H (19-24) mmol/L ABG O2 Saturation (94-97) % Chloride (98-107) mmol/L Carbon Dioxide 38 H (22-30) mmol/L BUN 19 H (7-17) mg/dL Creatinine 0.30 L (0.52-1.04) mg/dL Glucose (74-99) mg/dL POC Glucose (mg/dL) (75-99) mg/dL Plasma Lactic Acid Tim (0.7-2.0) mmol/L AST (14-36) U/L Albumin (3.5-5.0) g/dL Urine Protein (Negative) 09/05/16 09/05/16 Range/Units 06:36 12:36 WBC (3.8-10.6) k/uL Hgb (11.4-16.0) gm/dL MCHC (31.0-37.0) g/dL RDW (11.5-15.5) % Plt Count (150-450) k/uL Neutrophils # (1.3-7.7) k/uL Lymphocytes # (1.0-4.8) k/uL ABG pH (7.35-7.45) ABG pCO2 (35-45) mmHg ABG pO2 (83-108) mmHg ABG HCO3 (21-25) mmol/L ABG Total CO2 (19-24) mmol/L ABG O2 Saturation (94-97) % Chloride (98-107) mmol/L Carbon Dioxide (22-30) mmol/L BUN (7-17) mg/dL Creatinine (0.52-1.04) mg/dL Glucose (74-99) mg/dL POC Glucose (mg/dL) 121 H 138 H (75-99) mg/dL Plasma Lactic Acid Tim (0.7-2.0) mmol/L AST (14-36) U/L Albumin (3.5-5.0) g/dL Urine Protein (Negative) Microbiology - Last 24 Hours (Table) 09/04/16 20:30 Gram Stain - Preliminary Sputum Sputum Culture - Preliminary 09/04/16 19:45 Urine Culture - Preliminary Urine,Catheterized Assessment and Plan Plan: Assessment 1 advanced end-stage COPD with a baseline FEV1 of 27% of predicted On 09/05/2016 the patient is intubated on a mechanical ventilator. She is on a volume cycled assist-control mode of ventilation. Blood gases showed improvement acid-base status. Peak airway pressure remains elevated and the patient remains quite bronchospastic and wheezy. She is treated with a chem initial broncho-diet and steroids. She is also on antibiotics. There is improvement since yesterday. 2 acute hypercapnic respiratory failure, status post intubation mechanical ventilation. 3 acute on top of chronic hypercapnic respiratory failure with a component of respiratory acidosis on the blood gas 4 chronic hypoxic respiratory failure with further decompensation in her oxygenation due to COPD exacerbation. 5 chronic steroid dependence and the patient has been taking Klonopin grams of prednisone a daily basis 6 cachectic/catabolic state secondary to advanced COPD 7 nicotine addiction/smoking 8 cervical cancer 9 cervical spondylosis and lumbar spine spondylosis 10 peptic ulcer disease 11 remote history of MRSA pneumonia Plan Keep the patient sedated. Continue vent support. No attempts to wean for this patient for today as long as she remains quite bronchospastic and wheezy in her COPD remains active. We'll continue same medication regimen with accommodation bronchial that there is on antibiotics. Initiate tube feeds with vital 1.5 at the rate of 10 an hour with a goal of 40. Dietary consult. We will follow. Condition is critical. Prognosis poor secondary to above-mentioned comorbidities. Family was updated on her condition over the phone. This critically care evaluation was done in 40 minutes.
[2016-09-05 17:39] LABS: Glucose,Whole Blood 104 mg/dL (75-99)
[2016-09-06] MEDS: THEOPHYLLINE 24 HOUR 300 MG CAP.ER.24H PO SCH ×3 (00:11→21:34)
[2016-09-06] MEDS: SODIUM CHLORIDE 0.9% 1,000 ML IV SCH ×2 (00:11→20:54)
[2016-09-06] MEDS: methylPREDNISolone SOD SUCCI 125 MG/2 ML VIAL IV SCH ×4 (00:13→17:53)
[2016-09-06] MEDS: INSULIN LISPRO (humaLOG) 300 UNIT/3 ML VIAL SQ SCH ×4 (00:16→17:57)
[2016-09-06 00:17] LABS: Glucose,Whole Blood 127 mg/dL (75-99)
[2016-09-06] MEDS: PROPOFOL 500 MG in EMPTY BAG 1 BAG IV SCH ×7 (02:20→23:29)
[2016-09-06] MEDS: HYDROmorphone 2 MG/ML 1 ML SYRINGE IVP PRN ×7 (04:27→20:24)
[2016-09-06 05:04] LABS: Anisocytosis Slight; Basophils % (A) 0 %; CH 26.5; CHCM 29.2; Eosinophils % (A) 0 %; HCT 34.9 % (34.0-46.0); HDW 2.99; HGB 10.5 gm/dL (11.4-16.0); Hypochromasia Marked; Luc % (Auto) 2; Lymphocytes # (A) 0.8 k/uL (1.0-4.8); Lymphocytes % (A) 8 %; MCH 27.4 pg (25.0-35.0); MCHC 30.1 g/dL (31.0-37.0); MCV 91.1 fL (80.0-100.0); Mean Platelet Volume 6.7; Monocytes # (A) 0.4 k/uL (0-1.0); Monocytes % (A) 4 %; Neutrophils # (A) 8.1 k/uL (1.3-7.7); Neutrophils % (A) 86 %; RBC 3.83 m/uL (3.80-5.40); RDW 16.2 % (11.5-15.5); WBC 9.5 k/uL (3.8-10.6); WBC (Perox) 10.11
[2016-09-06 05:14] LABS: ABG PCO2 68 mmHg (35-45); ABG PH 7.34 (7.35-7.45)
[2016-09-06 05:15] LABS: ABG Base Excess 9.4 mmol/L; ABG HCO3 35 mmol/L (21-25); ABG PO2 97 mmHg (83-108); ABG TCO2 37 mmol/L (19-24)
[2016-09-06 05:20] LABS: Anion Gap 5 mmol/L; Blood Urea Nitrogen 26 mg/dL (7-17); Carbon Dioxide 38 mmol/L (22-30); Chloride 97 mmol/L (98-107); Glucose 137 mg/dL (74-99); Non-African American GFR(MDRD) >60 (>60 ml/min/1.73 sqM); Potassium 4.6 mmol/L (3.5-5.1); Sodium 140 mmol/L (137-145)
[2016-09-06 06:33] LABS: Glucose,Whole Blood 145 mg/dL (75-99)
[2016-09-06] MEDS: FORMOTEROL FUMARATE 20 MCG/2 ML NEBU INHALATION SCH ×2 (07:31→19:24)
[2016-09-06] MEDS: BUDESONIDE 0.5 MG/2 ML NEBU INHALATION SCH ×2 (07:31→19:24)
[2016-09-06] MEDS: IPRATROPIUM-ALBUTEROL 3 ML NEB INHALATION SCH ×4 (07:31→19:25)
--- NOTE | 2016-09-06 08:23 | XR ---
EXAMINATION TYPE: XR chest 1V DATE OF EXAM: 09/06/2016 7:01 AM CLINICAL HISTORY: Difficulty breathing progress study. TECHNIQUE: Single AP portable upright view of the chest is obtained. COMPARISON: Chest x-ray from one day earlier FINDINGS: An endotracheal tube and orogastric tube are stable in appearance. There is persistent rig ht lateral mid lung atelectasis and/or infiltrate near level of overlying EKG leads. There is underly ing emphysematous change without suspicious new focal airspace opacity, pleural effusion, or pneumoth orax seen bilaterally. Cardiac silhouette size is stable and within normal limits. Osseous structures are intact. IMPRESSION: Overall stable findings, chronic emphysematous change with right mid lung lateral infil trate and/or atelectasis, no new infiltrate is seen.
[2016-09-06] MEDS: PANTOPRAZOLE 40 MG/10 ML VIAL IV SCH (08:44)
[2016-09-06] MEDS: CHLORHEXIDINE GLUCONATE 15 ML CUP MUCOUS MEM SCH ×2 (08:44→20:47)
[2016-09-06] MEDS: HEPARIN SODIUM,PORCINE 5,000 UNIT/ML 1 ML VIAL SQ SCH ×2 (08:44→16:24)
[2016-09-06] MEDS: LEVOFLOXACIN 500MG-D5W PMX 500 MG in DEXTROSE/WATER 1 100ML.BAG IVPB SCH (10:04)
[2016-09-06 12:11] LABS: Glucose,Whole Blood 123 mg/dL (75-99)
--- NOTE | 2016-09-06 15:04 | P.PN ---
Subjective Principal diagnosis: Acute hypoxic and hypercapnic respiratory failure secondary to COPD 45-year-old female patient with advanced end-stage COPD who has had multiple hospitalization for COPD exacerbation. In the past year of 2016, the patient at least 6 hospitalization last one being in June 2016. She unfortunately continues to smoke cigarettes. She is oxygen dependent. She is also steroid dependent and she's been taking 20 mg of prednisone a daily basis. The patient has been noncompliant to smoking . She has been maintained on a combination of Spiriva and Symbicort on outpatient basis in addition to her daily prednisone. Her baseline FEV1 is around 27% of predicted. She has chronic hypoxic respiratory failure. She has had previous MRSA pneumonia. The patient came in for increased shortness of breath and at time of my evaluation this morning the patient was in considerable respiratory distress and she was using accessory muscles of breathing. She was placed on BiPAP accordingly at a pressure of 10 over 5 cm of water. Blood gases while the patient 100% nonrebreather showed a pH of 7.28 with a pCO2 of 82 and pO2 of 73. Chest x-ray shows no evidence of any pneumonia and there is extensive hyperinflation. No fever. No chills. No change in mental status. No nausea. No vomiting. She has a congested cough. She is unable to bring up any sputum. Note that the patient was being treated for acute COPD exacerbation, the patient became progressively more short of breath. She was utilizing BiPAP throughout the afternoon yesterday. She became more lethargic and obtunded and she was headed towards respiratory failure. The blood gas that was done at that time showed a pH of 7.2 with a pCO2 of 101 and pO2 of 144. At that point, the patient got moved to the intensive care unit the patient was intubated and placed on a mechanical ventilator. Reevaluated today on 09/06/2016, patient remains on mechanical ventilation, arousable, follows instruction, ABG showed a pO2 of 97, pCO2 of 68 and pH of 7.34. Chest x-ray showed right midlung atelectasis, doubt infiltrates. Objective - Vital Signs Vital signs: Vital Signs Temp 97.8 F 09/06/16 12:00 Pulse 82 09/06/16 14:00 Resp 20 09/06/16 14:00 BP 115/82 09/06/16 14:00 Pulse Ox 96 09/06/16 14:00 Intake & Output 09/05/16 09/06/16 09/06/16 18:59 06:59 18:59 Intake Total 961.778 700 688.357 Output Total 400 316 285 Balance 561.778 384 403.357 Weight 45.6 kg 45.6 kg Intake: IV 580 480 420 Levofloxacin 500Mg-D5w 100 100 Pmx 500 mg In Dextrose/ Water 1 100ml.bag @ 100 mls/hr IVPB Q24H [facility] Rx#: [id number] Sodium Chloride 0.9% 1, 480 480 320 000 ml @ 40 mls/hr IV . Q24H [facility] Rx#:[id number] Intake, IV Titration 291.778 100 88.357 Amount Magnesium Sulfate-D5w Pmx 200 1 gm In Dextrose/Water 1 100ml.bag @ 100 mls/hr IVPB Q1H [facility] Rx#: [id number] Propofol 500 mg In Empty 91.778 100 88.357 Bag 1 bag @ Titrate IV . Q0M [facility] Rx#:[id number] Tube Feeding 50 120 140 Other 40 40 Output: Urine 400 316 285 Other: Voiding Method Indwelling Catheter Indwelling Catheter # Bowel Movements 0 0 - Exam ntubated and a mechanical ventilator and she is calm and comfortable. Sedated with Diprivan. She has an orogastric and orotracheal tube both in place. Thin frail cachectic as mentioned and extremely malnourished.Head exam was generally normal. There was no scleral icterus or corneal arcus. Mucous membranes were moist. Neck is supple there is no JVDs a little neck masses. Lungs are diminished breath sounds bilaterally along with diffuse extremity wheezes heard throughout the lung cagle and there is pronation of expiratory phase of breathing.Cardiac exam revealed the PMI to be normally situated and sized. The rhythm was regular and no extrasystoles were noted during several minutes of auscultation. The first and second heart sounds were normal and physiologic splitting of the second heart sound was noted. There were no murmurs, rubs, clicks, or gallops.Abdominal exam revealed normal bowel sounds. The abdomen was soft, non-tender, and without masses, organomegaly, or appreciable enlargement of the abdominal aorta. My normal extremities. The patient diffuse muscle atrophy in the upper and lower extremities bilaterally. - Labs CBC & Chem 7: 09/06/16 04:21 09/06/16 04:21 Labs: Abnormal Lab Results - Last 24 Hours (Table) 09/05/16 09/06/16 09/06/16 Range/Units 17:37 00:16 04:21 Hgb 10.5 L (11.4-16.0) gm/dL MCHC 30.1 L (31.0-37.0) g/dL RDW 16.2 H (11.5-15.5) % Plt Count 510 H (150-450) k/uL Neutrophils # 8.1 H (1.3-7.7) k/uL Lymphocytes # 0.8 L (1.0-4.8) k/uL ABG pH (7.35-7.45) ABG pCO2 (35-45) mmHg ABG HCO3 (21-25) mmol/L ABG Total CO2 (19-24) mmol/L Chloride (98-107) mmol/L Carbon Dioxide (22-30) mmol/L BUN (7-17) mg/dL Creatinine (0.52-1.04) mg/dL Glucose (74-99) mg/dL POC Glucose (mg/dL) 104 H 127 H (75-99) mg/dL 09/06/16 09/06/16 09/06/16 Range/Units 04:21 05:04 06:31 Hgb (11.4-16.0) gm/dL MCHC (31.0-37.0) g/dL RDW (11.5-15.5) % Plt Count (150-450) k/uL Neutrophils # (1.3-7.7) k/uL Lymphocytes # (1.0-4.8) k/uL ABG pH 7.34 L (7.35-7.45) ABG pCO2 68 H (35-45) mmHg ABG HCO3 35 H (21-25) mmol/L ABG Total CO2 37 H (19-24) mmol/L Chloride 97 L (98-107) mmol/L Carbon Dioxide 38 H (22-30) mmol/L BUN 26 H (7-17) mg/dL Creatinine 0.30 L (0.52-1.04) mg/dL Glucose 137 H (74-99) mg/dL POC Glucose (mg/dL) 145 H (75-99) mg/dL 09/06/16 Range/Units 12:09 Hgb (11.4-16.0) gm/dL MCHC (31.0-37.0) g/dL RDW (11.5-15.5) % Plt Count (150-450) k/uL Neutrophils # (1.3-7.7) k/uL Lymphocytes # (1.0-4.8) k/uL ABG pH (7.35-7.45) ABG pCO2 (35-45) mmHg ABG HCO3 (21-25) mmol/L ABG Total CO2 (19-24) mmol/L Chloride (98-107) mmol/L Carbon Dioxide (22-30) mmol/L BUN (7-17) mg/dL Creatinine (0.52-1.04) mg/dL Glucose (74-99) mg/dL POC Glucose (mg/dL) 123 H (75-99) mg/dL Microbiology - Last 24 Hours (Table) 09/04/16 20:30 Gram Stain - Preliminary Sputum Sputum Culture - Preliminary Streptococcus pneumoniae 09/04/16 19:45 Urine Culture - Final Urine,Catheterized Assessment and Plan Plan: 1 acute hypercapnic respiratory failure secondary to advanced end-stage COPD with a baseline FEV1 of 27% of predicted On 09/05/2016 the patient is intubated on a mechanical ventilator. She is on a volume cycled assist-control mode of ventilation. Blood gases showed improvement acid-base status. Peak airway pressure remains elevated and the patient remains quite bronchospastic and wheezy. She is treated with a chem initial broncho-diet and steroids. She is also on antibiotics. There is improvement since yesterday. On , patient remains on mechanical ventilation, continues to have significant amount of wheezing and rhonchi noted bilaterally on physical examination, clearly patient is not ready for weaning and extubation at this point. 2 acute hypercapnic respiratory failure, status post intubation mechanical ventilation. 3 acute on top of chronic hypercapnic respiratory failure with a component of respiratory acidosis on the blood gas 4 chronic hypoxic respiratory failure with further decompensation in her oxygenation due to COPD exacerbation. 5 chronic steroid dependence 6 cachectic/catabolic state secondary to advanced COPD 7 nicotine addiction/smoking 8 cervical cancer 9 cervical spondylosis and lumbar spine spondylosis 10 peptic ulcer disease 11 remote history of MRSA pneumonia Plan Keep the patient sedated. Continue vent support. No attempts to wean for this patient for today as long as she remains quite bronchospastic and wheezy in her COPD remains active. We'll continue same medication regimen with accommodation bronchial that there is on antibiotics. Initiate tube feeds with vital 1.5 at the rate of 10 an hour with a goal of 40. Dietary consult. We will follow. Condition is critical. Prognosis poor secondary to above-mentioned comorbidities. This critically care evaluation was done in 40 minutes. Time with Patient: Greater than 30
--- NOTE | 2016-09-06 16:44 | P.PN ---
Subjective 44-year-old with advanced COPD that is admitted multiple times in the hospital with acute exacerbation and difficulty breathing. Comes in to the hospital with difficulty breathing that has progressively gotten worse over last few days. Patient continues to smoke cigarettes at this time. Patient has been taking 20 mg of prednisone at home and maintained on breathing treatments however patient comes in the hospital with risks worsening of breathing. Patient currently is lethargic. Patient was noted to have a arterial blood gas post slightly acidotic. She was started on BiPAP was given a dose of Solu- Medrol 125 mg and given breathing treatments. Patient however has been refusing BiPAP and removes it. Patient continues to have a cough at this time however is not able to bring up any sputum. Patient's FEV1 is around 27% on the last pulmonary function tests. Chest x-ray did not reveal any acute abnormalities 09/05/2016 Patient was having increased work of breathing overnight. A repeated ABG was done which showed a pH of 7.2 and a pCO2 of 101. Hence patient was triaged ICU and patient was intubated and is currently on the ventilator. Patient is currently on 50 mics of propofol however is awake and able to follow commands. Patient apparently has a significant amount of oral an ET tube secretions are thick. Currently on 16 of respiratory rate, tidal volume of 350, FiO2 of 45% and a PEEP of 5 09/06/16 Currently sedated on 50mcg of propofol, however following some commands. Oral and et tube secretions are reported. No other overnight events. Objective - Vital Signs Vital signs: Vital Signs Temp 97.4 F L 09/06/16 16:00 Pulse 65 09/06/16 16:00 Resp 25 H 09/06/16 16:00 BP 115/78 09/06/16 16:00 Pulse Ox 99 09/06/16 16:00 Intake & Output 09/05/16 09/06/16 09/06/16 18:59 06:59 18:59 Intake Total 961.778 700 907.229 Output Total 400 316 340 Balance 561.778 384 567.229 Weight 45.6 kg 45.6 kg Intake: IV 580 480 500 Levofloxacin 500Mg-D5w 100 100 Pmx 500 mg In Dextrose/ Water 1 100ml.bag @ 100 mls/hr IVPB Q24H [facility] Rx#: [id number] Sodium Chloride 0.9% 1, 480 480 400 000 ml @ 40 mls/hr IV . Q24H [facility] Rx#:[id number] Intake, IV Titration 291.778 100 127.229 Amount Magnesium Sulfate-D5w Pmx 200 1 gm In Dextrose/Water 1 100ml.bag @ 100 mls/hr IVPB Q1H [facility] Rx#: [id number] Propofol 500 mg In Empty 91.778 100 127.229 Bag 1 bag @ Titrate IV . Q0M [facility] Rx#:[id number] Tube Feeding 50 120 200 Other 40 80 Output: Urine 400 316 340 Other: Voiding Method Indwelling Catheter Indwelling Catheter Indwelling Catheter # Bowel Movements 0 0 - Exam Gen. appearance is currently on the ventilator and sedated Lungs diffuse wheezing appreciated anteriorly, slightly improved. no rhonchi appreciated. Heart S1-S2 heard no murmurs appreciated Abdomen soft nontender organomegaly Lower extremity is no edema patient Neurologically patient is sedated. - Labs CBC & Chem 7: 09/06/16 04:21 09/06/16 04:21 Labs: Abnormal Lab Results - Last 24 Hours (Table) 09/05/16 09/06/16 09/06/16 Range/Units 17:37 00:16 04:21 Hgb 10.5 L (11.4-16.0) gm/dL MCHC 30.1 L (31.0-37.0) g/dL RDW 16.2 H (11.5-15.5) % Plt Count 510 H (150-450) k/uL Neutrophils # 8.1 H (1.3-7.7) k/uL Lymphocytes # 0.8 L (1.0-4.8) k/uL ABG pH (7.35-7.45) ABG pCO2 (35-45) mmHg ABG HCO3 (21-25) mmol/L ABG Total CO2 (19-24) mmol/L Chloride (98-107) mmol/L Carbon Dioxide (22-30) mmol/L BUN (7-17) mg/dL Creatinine (0.52-1.04) mg/dL Glucose (74-99) mg/dL POC Glucose (mg/dL) 104 H 127 H (75-99) mg/dL 09/06/16 09/06/16 09/06/16 Range/Units 04:21 05:04 06:31 Hgb (11.4-16.0) gm/dL MCHC (31.0-37.0) g/dL RDW (11.5-15.5) % Plt Count (150-450) k/uL Neutrophils # (1.3-7.7) k/uL Lymphocytes # (1.0-4.8) k/uL ABG pH 7.34 L (7.35-7.45) ABG pCO2 68 H (35-45) mmHg ABG HCO3 35 H (21-25) mmol/L ABG Total CO2 37 H (19-24) mmol/L Chloride 97 L (98-107) mmol/L Carbon Dioxide 38 H (22-30) mmol/L BUN 26 H (7-17) mg/dL Creatinine 0.30 L (0.52-1.04) mg/dL Glucose 137 H (74-99) mg/dL POC Glucose (mg/dL) 145 H (75-99) mg/dL 09/06/16 Range/Units 12:09 Hgb (11.4-16.0) gm/dL MCHC (31.0-37.0) g/dL RDW (11.5-15.5) % Plt Count (150-450) k/uL Neutrophils # (1.3-7.7) k/uL Lymphocytes # (1.0-4.8) k/uL ABG pH (7.35-7.45) ABG pCO2 (35-45) mmHg ABG HCO3 (21-25) mmol/L ABG Total CO2 (19-24) mmol/L Chloride (98-107) mmol/L Carbon Dioxide (22-30) mmol/L BUN (7-17) mg/dL Creatinine (0.52-1.04) mg/dL Glucose (74-99) mg/dL POC Glucose (mg/dL) 123 H (75-99) mg/dL Microbiology - Last 24 Hours (Table) 09/04/16 20:30 Gram Stain - Preliminary Sputum Sputum Culture - Preliminary Streptococcus pneumoniae 09/04/16 19:45 Urine Culture - Final Urine,Catheterized Assessment and Plan Plan: Acute metabolic encephalopathy #2 acute on chronic hypoxic hypercapnic respiratory failure secondary to an acute exacerbation of COPD #3 ongoing tobacco use #4 nondistended respiratory acidosis #5 moderate to severe protein calorie malnutrition secondary to advanced COPD #6 cervical cancer Plan Tube feeding Continue steroids Abx Breathing tx. Continue ventilator support per Dr Trujillo.
[2016-09-06 17:57] LABS: Glucose,Whole Blood 141 mg/dL (75-99)
[2016-09-06] MEDS: ASPIRIN 325 MG TAB PO SCH (20:45)
[2016-09-06] MEDS: risperiDONE 1 MG TAB PO SCH (20:46)
[2016-09-06] MEDS: traZODone HCL 100 MG TAB PO SCH (20:51)
[2016-09-06] MEDS: buPROPion SR 150 MG TABLET.ER PO SCH (20:53)
[2016-09-06 23:59] LABS: Glucose,Whole Blood 156 mg/dL (75-99)
[2016-09-07 00:21] LABS: Glucose,Whole Blood 158 mg/dL (75-99)
[2016-09-07] MEDS: INSULIN LISPRO (humaLOG) 300 UNIT/3 ML VIAL SQ SCH ×4 (00:21→17:57)
[2016-09-07] MEDS: methylPREDNISolone SOD SUCCI 125 MG/2 ML VIAL IV SCH ×4 (00:23→17:59)
[2016-09-07] MEDS: HEPARIN SODIUM,PORCINE 5,000 UNIT/ML 1 ML VIAL SQ SCH ×3 (00:29→15:48)
[2016-09-07] MEDS: HYDROmorphone 2 MG/ML 1 ML SYRINGE IVP PRN ×6 (04:30→20:18)
[2016-09-07] MEDS: PROPOFOL 500 MG in EMPTY BAG 1 BAG IV SCH (04:57)
[2016-09-07 05:04] LABS: Blood Urea Nitrogen 20 mg/dL (7-17); Calcium 8.9 mg/dL (8.4-10.2); Chloride 96 mmol/L (98-107); Glucose 166 mg/dL (74-99); Magnesium 1.8 mg/dL (1.6-2.3); Non-African American GFR(MDRD) >60 (>60 ml/min/1.73 sqM); Phosphorous 3.5 mg/dL (2.5-4.5); Potassium 4.1 mmol/L (3.5-5.1); Sodium 141 mmol/L (137-145)
[2016-09-07 05:11] LABS: Anion Gap 4 mmol/L
[2016-09-07 05:17] LABS: Carbon Dioxide 41 mmol/L (22-30)
[2016-09-07 05:52] LABS: Basophils % (A) 0 %; CH 26.5; CHCM 29.5; Eosinophils % (A) 0 %; HCT 34.9 % (34.0-46.0); HDW 3.03; HGB 10.3 gm/dL (11.4-16.0); Hypochromasia Marked; Luc # (Auto) 0.15; Luc % (Auto) 3; Lymphocytes # (A) 0.5 k/uL (1.0-4.8); Lymphocytes % (A) 9 %; MCH 26.6 pg (25.0-35.0); MCHC 29.5 g/dL (31.0-37.0); MCV 90.2 fL (80.0-100.0); Mean Platelet Volume 6.7; Monocytes # (A) 0.3 k/uL (0-1.0); Monocytes % (A) 6 %; Neutrophils # (A) 4.5 k/uL (1.3-7.7); Neutrophils % (A) 81 %; RBC 3.87 m/uL (3.80-5.40); RDW 15.9 % (11.5-15.5); WBC 5.5 k/uL (3.8-10.6); WBC (Perox) 5.89
[2016-09-07 06:51] LABS: Glucose,Whole Blood 181 mg/dL (75-99)
[2016-09-07] MEDS: SODIUM CHLORIDE 0.9% 1,000 ML IV SCH (07:40)
[2016-09-07] MEDS: BUDESONIDE 0.5 MG/2 ML NEBU INHALATION SCH ×2 (07:48→19:16)
[2016-09-07] MEDS: FORMOTEROL FUMARATE 20 MCG/2 ML NEBU INHALATION SCH ×2 (07:48→19:16)
[2016-09-07] MEDS: IPRATROPIUM-ALBUTEROL 3 ML NEB INHALATION SCH ×4 (07:48→19:16)
[2016-09-07] MEDS: MAGNESIUM SULFATE-D5W PMX 1 GM in DEXTROSE/WATER 1 100ML.BAG IVPB SCH ×2 (08:22→09:32)
[2016-09-07] MEDS: PANTOPRAZOLE 40 MG/10 ML VIAL IV SCH (08:32)
[2016-09-07] MEDS: CHLORHEXIDINE GLUCONATE 15 ML CUP MUCOUS MEM SCH (08:32)
--- NOTE | 2016-09-07 08:38 | XR ---
EXAMINATION TYPE: XR chest 1V DATE OF EXAM: 09/07/2016 6:49 AM COMPARISON: NONE INDICATION: Respiratory failure TECHNIQUE: Single frontal view of the chest is obtained. FINDINGS: The heart size is normal. The pulmonary vasculature is normal. The lungs are clear. Endotracheal tube is present with the tip above the gina. A second catheter appears to be present, possibly nasogastric tube which also has its tip located within the proximal thoracic region. Previou s nasogastric tube is been pulled back. IMPRESSION: 1. No acute pulmonary process. 2. Endotracheal tube appears in position. The nasogastric tube tip however is within the proximal tho rax and requires adjustment.
[2016-09-07] MEDS: THEOPHYLLINE 24 HOUR 300 MG CAP.ER.24H PO SCH ×3 (09:59→20:59)
[2016-09-07] MEDS: LEVOFLOXACIN 500MG-D5W PMX 500 MG in DEXTROSE/WATER 1 100ML.BAG IVPB SCH (10:53)
[2016-09-07 12:05] LABS: Glucose,Whole Blood 146 mg/dL (75-99)
--- NOTE | 2016-09-07 12:10 | P.PN ---
Subjective Principal diagnosis: Acute hypoxic and hypercapnic respiratory failure secondary to COPD 45-year-old female patient with advanced end-stage COPD who has had multiple hospitalization for COPD exacerbation. In the past year of 2016, the patient at least 6 hospitalization last one being in June 2016. She unfortunately continues to smoke cigarettes. She is oxygen dependent. She is also steroid dependent and she's been taking 20 mg of prednisone a daily basis. The patient has been noncompliant to smoking . She has been maintained on a combination of Spiriva and Symbicort on outpatient basis in addition to her daily prednisone. Her baseline FEV1 is around 27% of predicted. She has chronic hypoxic respiratory failure. She has had previous MRSA pneumonia. The patient came in for increased shortness of breath and at time of my evaluation this morning the patient was in considerable respiratory distress and she was using accessory muscles of breathing. She was placed on BiPAP accordingly at a pressure of 10 over 5 cm of water. Blood gases while the patient 100% nonrebreather showed a pH of 7.28 with a pCO2 of 82 and pO2 of 73. Chest x-ray shows no evidence of any pneumonia and there is extensive hyperinflation. No fever. No chills. No change in mental status. No nausea. No vomiting. She has a congested cough. She is unable to bring up any sputum. Note that the patient was being treated for acute COPD exacerbation, the patient became progressively more short of breath. She was utilizing BiPAP throughout the afternoon yesterday. She became more lethargic and obtunded and she was headed towards respiratory failure. The blood gas that was done at that time showed a pH of 7.2 with a pCO2 of 101 and pO2 of 144. At that point, the patient got moved to the intensive care unit the patient was intubated and placed on a mechanical ventilator. Reevaluated today on 09/06/2016, patient remains on mechanical ventilation, arousable, follows instruction, ABG showed a pO2 of 97, pCO2 of 68 and pH of 7.34. Chest x-ray showed right midlung atelectasis, doubt infiltrates. Reevaluated today on 09/07/2016, patient was given a weaning trial on CPAP while on mechanical ventilation, and when I examined the patient she sounded fairly clear, no rhonchi and no wheezes, she was alert oriented, she was noted to move good tidal volumes, and her respiratory rate was in the low 20s. Hence considering the patient was doing well clinically, I proceeded to extubating the patient. However the patient fails, she will likely to be reintubated, and then I would recommend tracheostomy for this patient. But it would be best to give her a trial off weaning from mechanical ventilation before we make that decision. Patient was extubated, and a few hours after the extubation she was noted to be tolerating the extubation well. She will have BiPAP at bedside, and if the patient does not improve much BiPAP could be used. Chest x-ray was also reviewed, no evidence of significant infiltrate noted on the chest x-ray today. Objective - Vital Signs Vital signs: Vital Signs Temp 98.6 F 09/07/16 08:00 Pulse 79 09/07/16 11:17 Resp 20 09/07/16 11:00 BP 150/89 09/07/16 11:00 Pulse Ox 99 09/07/16 11:00 Intake & Output 09/06/16 09/07/16 09/07/16 18:59 06:59 18:59 Intake Total 8375.016 8184 600.000 Output Total 425 885 665 Balance 713.869 445 -65.000 Weight 45.6 kg Intake: IV 580 480 160 Levofloxacin 500Mg-D5w 100 Pmx 500 mg In Dextrose/ Water 1 100ml.bag @ 100 mls/hr IVPB Q24H [facility] Rx#: [id number] Sodium Chloride 0.9% 1, 480 480 160 000 ml @ 40 mls/hr IV . Q24H [facility] Rx#:[id number] Intake, IV Titration 158.869 100 250.000 Amount Magnesium Sulfate-D5w Pmx 200 1 gm In Dextrose/Water 1 100ml.bag @ 100 mls/hr IVPB Q1H [facility] Rx#: [id number] Propofol 500 mg In Empty 158.869 100 50.000 Bag 1 bag @ Titrate IV . Q0M [facility] Rx#:[id number] Tube Feeding 320 600 160 Other 80 150 30 Output: Urine 425 885 665 Other: Voiding Method Indwelling Catheter Indwelling Catheter Indwelling Catheter # Bowel Movements 0 - Exam Physical Exam: Revealed a 45-year-old female chronically ill, on mechanical ventilation, appropriate, follows instructions, on CPAP. HEENT:[Neck is supple.] [No neck masses.] [No thyromegaly.] [No JVD.] Chest: [Diminished breath sound bilaterally no rhonchi, no wheezes] Cardiac Exam: [Normal S1 and S2, no S3 gallop, no murmur.] Abdomen: [Soft, nontender, no megaly, no rebound, no guarding, normal bowel sounds.] Extremities: [No clubbing, no edema, no cyanosis.] Neurological Exam: [No focal neurologic deficit.] - Labs CBC & Chem 7: 09/07/16 04:23 09/07/16 04:23 Labs: Abnormal Lab Results - Last 24 Hours (Table) 09/06/16 09/06/16 09/06/16 Range/Units 12:09 17:55 23:58 Hgb (11.4-16.0) gm/dL MCHC (31.0-37.0) g/dL RDW (11.5-15.5) % Plt Count (150-450) k/uL Lymphocytes # (1.0-4.8) k/uL Chloride (98-107) mmol/L Carbon Dioxide (22-30) mmol/L BUN (7-17) mg/dL Creatinine (0.52-1.04) mg/dL Glucose (74-99) mg/dL POC Glucose (mg/dL) 123 H 141 H 156 H (75-99) mg/dL 09/07/16 09/07/16 09/07/16 Range/Units 00:20 04:23 04:23 Hgb 10.3 L (11.4-16.0) gm/dL MCHC 29.5 L (31.0-37.0) g/dL RDW 15.9 H (11.5-15.5) % Plt Count 529 H (150-450) k/uL Lymphocytes # 0.5 L (1.0-4.8) k/uL Chloride 96 L (98-107) mmol/L Carbon Dioxide 41 H* (22-30) mmol/L BUN 20 H (7-17) mg/dL Creatinine 0.30 L (0.52-1.04) mg/dL Glucose 166 H (74-99) mg/dL POC Glucose (mg/dL) 158 H (75-99) mg/dL 01/17/17 01/17/17 Range/Units 06:49 12:04 Hgb (11.4-16.0) gm/dL MCHC (31.0-37.0) g/dL RDW (11.5-15.5) % Plt Count (150-450) k/uL Lymphocytes # (1.0-4.8) k/uL Chloride (98-107) mmol/L Carbon Dioxide (22-30) mmol/L BUN (7-17) mg/dL Creatinine (0.52-1.04) mg/dL Glucose (74-99) mg/dL POC Glucose (mg/dL) 181 H 146 H (75-99) mg/dL Microbiology - Last 24 Hours (Table) 09/04/16 20:30 Gram Stain - Final Sputum Sputum Culture - Final Streptococcus pneumoniae Assessment and Plan Plan: 1 acute hypercapnic respiratory failure secondary to advanced end-stage COPD with a baseline FEV1 of 27% of predicted On 09/05/2016 the patient is intubated on a mechanical ventilator. She is on a volume cycled assist-control mode of ventilation. Blood gases showed improvement acid-base status. Peak airway pressure remains elevated and the patient remains quite bronchospastic and wheezy. She is treated with a chem initial broncho-diet and steroids. She is also on antibiotics. There is improvement since yesterday. On 09/06/2016, patient remains on mechanical ventilation, continues to have significant amount of wheezing and rhonchi noted bilaterally on physical examination, clearly patient is not ready for weaning and extubation at this point. On 09/07/2016, patient was extubated, she will be given initially at trial on high flow nasal cannula, and if not tolerated may consider placing the patient on BiPAP. 2 acute hypercapnic respiratory failure, status post intubation mechanical ventilation. 3 acute on top of chronic hypercapnic respiratory failure with a component of respiratory acidosis on the blood gas 4 chronic hypoxic respiratory failure with further decompensation in her oxygenation due to COPD exacerbation. 5 chronic steroid dependence 6 cachectic/catabolic state secondary to advanced COPD 7 nicotine addiction/smoking 8 cervical cancer 9 cervical spondylosis and lumbar spine spondylosis 10 peptic ulcer disease 11 remote history of MRSA pneumonia Plan Patient was extubated today, we'll continue to follow, she will remain in the ICU, and we will continue the same antibiotics and bronchodilators, steroids, and closely monitor in the ICU, use BiPAP as needed. Continue GI and DVT prophylaxis. Continue bronchodilators and steroids. Time with Patient: Greater than 30
--- NOTE | 2016-09-07 14:24 | P.CONS ---
History of Present Illness - Reason for Consult Consult date: 09/07/16 Positive blood cultures - History of Present Illness This is a 45-year-old female known to ID service. She has a past medical history for advanced end-stage COPD with FEV1 27% of predicted, chronic hypoxic respiratory failure on home O2 and steroid dependent at 20 mg daily. She also has history of previous MRSA pneumonia. Patient presented to the hospital with complaints of shortness of breath that had been going on for a while but significantly worsening. Her initial chest x-ray showed COPD, pulmonary fibrosis. She had a white count of 20, lactic acid less than 0.5, urinalysis was clear with nitrate and leukoesterase negative. Albumin 3.3. Patient was admitted initially to the selective care unit and started on IV Levaquin as well as DuoNeb treatments, IV Solu-Medrol and inhaled steroids. That afternoon, patient developed lethargy and was obtunded ended up being transferred to the intensive care unit and intubated on September 04. She has been maintained in the intensive care unit she has not required vasopressors. She has been successfully extubated this morning. Repeat chest x-ray this morning reveals no acute pulmonary process. She has been followed by pulmonary medicine. She is currently on BiPAP and pulse ox 97%. Her white count is down to 5.5. Sputum culture is showing strep pneumoniae resistant to azithromycin and erythromycin. Patient is complaining of significant sore throat and appears she has oral thrush and has just been ordered for nystatin. Review of Systems All systems: negative Constitutional: Denies chills, Denies fever Eyes: denies blurred vision, denies pain Ears, nose, mouth and throat: Reports sore throat, Denies headache Cardiovascular: Reports shortness of breath, Denies chest pain, Denies syncope Respiratory: Reports cough, Reports cough with sputum, Reports dyspnea, Reports home oxygen, Reports wheezing Gastrointestinal: Denies abdominal pain, Denies diarrhea, Denies nausea, Denies vomiting Genitourinary: Reports dysuria ("little"), Denies hematuria Musculoskeletal: Denies myalgias Integumentary: Denies pruritus, Denies rash Neurological: Denies numbness, Denies weakness Psychiatric: Denies anxiety, Denies depression Endocrine: Denies fatigue, Denies weight change Past Medical History Past Medical History: Asthma, Cancer, Chest Pain / Angina, COPD, GERD/Reflux, Hyperlipidemia, Osteoarthritis (OA) Additional Past Medical History / Comment(s): COPD which is been end-stage with frequent hospitalization for acute COPD exacerbation. The patient has chronic hypoxic and hypercapnic respiratory failure. 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, cervical and lumbar spine spondylosis, chronic migraines, peptic ulcer disease/gastric ulcers, carpal tunnel disease bilaterally, herniated disc at level of C5-C6 and C7, cervical cancer, depression, cachexia and malnourishment and significant loss and total body protein mass Last Myocardial Infarction Date:: UNK History of Any Multi-Drug Resistant Organisms: MRSA Year Discovered:: 06/18/2015 MDRO Source:: SPUTUM Past Surgical History: Section, Cholecystectomy, Hysterectomy, Tubal Ligation Additional Past Surgical History / Comment(s): x 2, colonoscopy with benign polypectomy. Past Anesthesia/Blood Transfusion Reactions: No Reported Reaction Additional Past Anesthesia/Blood Transfusion Reaction / Comm: Pt has never recieved blood. Past Psychological History: Anxiety, Bipolar, Depression Additional Psychological History / Comment(s): Pt resides with her son jessica. She performs her own ADLs. She has home O2 at 5 L/[place] ATC. She does not drive but her son takes her places. she uses a walker as needed. Per her old medical record dated 07/06/14 pt was seen in [facility] ER for suicide attempt and admitted to psych. Relates that she is an ongoing tobacco smoker-smokes 3 CIG/ DAY. She does not have experience. She has no international travels. Smoking Status: Former smoker Past Alcohol Use History: None Reported Additional Past Alcohol Use History / Comment(s): ADMITS TO SMOKING 3 CIG PER DAY. Past Drug Use History: Marijuana Additional Drug Use History / Comment(s): OCC MARIJUANA USE - Past Family History Father Family Medical History: No Reported History Additional Family Medical History / Comment(s): WAS AN ALCOHOLIC Mother Family Medical History: Cancer Additional Family Medical History / Comment(s): AT AGE 54-BOWEL CANCER Medications and Allergies Home Medications Medication Instructions Recorded Confirmed Type Albuterol Inhaler [Ventolin Hfa 2 puff INHALATION RT-Q6H PRN 01/03/14 09/04/16 History Inhaler] Omeprazole [PriLOSEC] 40 mg PO BID 01/03/14 09/04/16 History Multivitamins, Thera [Multivitamin] 1 tab PO DAILY 12/24/14 09/04/16 History risperiDONE 3 mg PO HS 12/24/14 09/04/16 History traZODone HCL 300 mg PO HS 12/24/14 09/04/16 History buPROPion SR [Wellbutrin SR] 150 mg PO HS 04/30/15 09/04/16 History Albuterol Nebulized [Ventolin 2.5 mg INHALATION RT-Q4H 03/24/16 09/04/16 History Nebulized] Aspirin [Aspirin EC] 325 mg PO HS 03/24/16 09/04/16 History Ipratropium [place] [Atrovent Hfa] 2 puff INHALATION RT-QID 07/07/16 09/04/16 History HYDROcodone/APAP 10-325MG [[place] 1 tab PO TID PRN 07/08/16 09/04/16 History 10-325] rOPINIRole HCL 0.5 mg PO HS 07/18/16 09/04/16 History Allergies Allergy/AdvReac Type Severity Reaction Status Date / Time aripiprazole [From Abilify] Allergy Rash/Hives Verified 09/04/16 11:34 honey Allergy Rash/Hives Verified 09/04/16 11:34 methadone [Methadone] Allergy Itching Verified 09/04/16 11:34 naproxen Allergy Rash/Hives Verified 09/04/16 11:34 sulfamethoxazole Allergy Rash/Hives Verified 09/04/16 11:34 [From Bactrim] tetracycline [Tetracycline] Allergy Rash/Hives Verified 09/04/16 11:34 trimethoprim [From Bactrim] Allergy Rash/Hives Verified 09/04/16 11:34 adhesive tape AdvReac Rash/Hives Verified 09/04/16 11:34 codeine AdvReac Abdominal Verified 09/04/16 11:34 Pain ketorolac tromethamine AdvReac Vomiting Verified 09/04/16 11:34 [From Toradol] pregabalin [From Lyrica] AdvReac Unknown Verified 09/04/16 11:34 tramadol HCl [From Ultram] AdvReac SEIZURES Verified 09/04/16 11:34 tromethamine AdvReac Nausea & Verified 09/04/16 11:34 Vomiting Physical Exam Vitals: Vital Signs Temp Pulse Pulse Resp BP Pulse Ox 09/07/16 14:00 75 16 131/78 95 09/07/16 13:30 77 16 131/78 92 L 09/07/16 13:00 79 19 126/76 97 09/07/16 12:30 73 18 134/75 96 09/07/16 12:00 96.5 F L 74 24 129/79 99 09/07/16 11:30 78 22 130/78 98 09/07/16 11:17 79 09/07/16 11:06 77 09/07/16 11:00 89 20 150/89 99 09/07/16 10:30 88 20 128/73 97 09/07/16 10:00 97 18 129/84 85 L 09/07/16 09:39 92 L 09/07/16 09:30 108 H 31 H 164/92 87 L 09/07/16 09:00 107 H 19 163/96 97 09/07/16 08:30 76 15 111/72 100 09/07/16 08:23 79 09/07/16 08:10 70 09/07/16 08:00 98.6 F 69 15 135/78 100 09/07/16 07:53 73 09/07/16 07:30 84 20 135/78 100 09/07/16 07:00 82 20 128/79 100 09/07/16 06:30 77 17 147/87 100 09/07/16 06:00 61 16 108/65 100 09/07/16 05:30 73 15 117/65 100 09/07/16 05:00 70 16 120/73 100 09/07/16 04:30 105 H 19 133/75 99 09/07/16 04:00 98.6 F 84 22 139/73 99 09/07/16 03:30 93 21 148/83 100 09/07/16 03:00 81 21 132/73 100 09/07/16 02:30 66 17 130/73 100 09/07/16 02:00 61 16 106/66 100 09/07/16 00:00 97.8 F 80 17 108/65 100 09/06/16 23:00 68 15 110/67 100 09/06/16 22:00 62 16 110/67 100 09/06/16 21:00 89 18 125/73 96 09/06/16 20:00 97.9 F 68 17 117/76 97 09/06/16 19:26 54 L 09/06/16 19:00 55 L 16 115/74 99 09/06/16 18:00 82 33 H 113/71 94 L 09/06/16 17:00 55 L 16 104/69 97 09/06/16 16:00 97.4 F L 65 104 H 16 115/78 99 09/06/16 15:57 72 09/06/16 15:27 68 09/06/16 15:00 57 L 18 110/72 99 Intake and Output 09/06/16 09/07/16 09/07/16 22:59 06:59 14:59 Intake Total 970.512 810 800.000 Output Total 482 590 7433 Balance 645.512 110 -240.000 Intake: IV 320 320 360 Levofloxacin 500Mg-D5w 100 Pmx 500 mg In Dextrose/ Water 1 100ml.bag @ 100 mls/hr IVPB Q24H [facility] Rx#: [id number] Sodium Chloride 0.9% 1, 320 320 260 000 ml @ 40 mls/hr IV . Q24H [facility] Rx#:[id number] Intake, IV Titration 120.512 50 250.000 Amount Magnesium Sulfate-D5w Pmx 200 1 gm In Dextrose/Water 1 100ml.bag @ 100 mls/hr IVPB Q1H [facility] Rx#: [id number] Propofol 500 mg In Empty 120.512 50 50.000 Bag 1 bag @ Titrate IV . Q0M [facility] Rx#:[id number] Tube Feeding 420 360 160 Other 110 80 30 Output: Urine 581 198 8369 Other: Voiding Method Indwelling Catheter Indwelling Catheter Indwelling Catheter # Bowel Movements 0 0 Weight 45.6 kg Gen: This is a thin 45-year-old female. She is currently on BiPAP and does not appear to be in respiratory distress. She appears comfortable. HEENT: Head is atraumatic, normocephalic. Pupils equal, round. Sclerae is anicteric. White patches on the tongue. NECK: Supple. No JVD. No lymphadenopathy. No thyromegaly. LUNGS: Diminished bilaterally with a few rhonchi. No intercostal retractions. HEART: Regular rate and rhythm. No murmur. ABDOMEN: Flat. Soft. Bowel sounds are present. No masses. No tenderness. EXTREMITIES: No pedal edema. No calf tenderness. Dorsalis pedis is strong bilaterally. NEUROLOGICAL: Patient is awake, alert and oriented x3. Cranial nerves 2 through 12 are grossly intact. Results Results: Laboratory Results WBC 5.5 k/uL (3.8-10.6) 09/07/16 04:23 RBC 3.87 m/uL (3.80-5.40) 09/07/16 04:23 Hgb 10.3 gm/dL (11.4-16.0) L 09/07/16 04:23 Hct 34.9 % (34.0-46.0) 09/07/16 04:23 MCV 90.2 fL (80.0-100.0) 09/07/16 04:23 MCH 26.6 pg (25.0-35.0) 09/07/16 04:23 MCHC 29.5 g/dL (31.0-37.0) L 09/07/16 04:23 RDW 15.9 % (11.5-15.5) H 09/07/16 04:23 Plt Count 529 k/uL (150-450) H 09/07/16 04:23 Neutrophils % 81 % 09/07/16 04:23 Neutrophils % (Manual) 61.0 % 09/04/16 02:09 Band Neutrophils % 26.0 % 09/04/16 02:09 Lymphocytes % 9 % 09/07/16 04:23 Lymphocytes % (Manual) 10.0 % 09/04/16 02:09 Monocytes % 6 % 09/07/16 04:23 Monocytes % (Manual) 3.0 % 09/04/16 02:09 Eosinophils % 0 % 09/07/16 04:23 Basophils % 0 % 09/07/16 04:23 Neutrophils # 4.5 k/uL (1.3-7.7) 09/07/16 04:23 Neutrophils # (Manual) 14.2 k/uL (1.3-7.7) H 09/04/16 02:09 Lymphocytes # 0.5 k/uL (1.0-4.8) L 09/07/16 04:23 Lymphocytes # (Manual) 1.6 k/uL (1.0-4.8) 09/04/16 02:09 Monocytes # 0.3 k/uL (0-1.0) 09/07/16 04:23 Monocytes # (Manual) 0.5 k/uL (0-1.0) 09/04/16 02:09 Eosinophils # 0.0 k/uL (0-0.7) 09/07/16 04:23 Basophils # 0.0 k/uL (0-0.2) 09/07/16 04:23 Nucleated RBCs 0 /100 WBC (0-0) 09/04/16 02:09 Manual Slide Review Performed 09/04/16 02:09 Hypochromasia Marked 09/07/16 04:23 Anisocytosis Slight 09/06/16 04:21 Sample Site LRAD 09/06/16 05:04 ABG pH 7.34 (7.35-7.45) L 09/06/16 05:04 ABG pCO2 68 mmHg (35-45) H 09/06/16 05:04 ABG pO2 97 mmHg (83-108) 09/06/16 05:04 ABG HCO3 35 mmol/L (21-25) H 09/06/16 05:04 ABG Total CO2 37 mmol/L (19-24) H 09/06/16 05:04 ABG O2 Saturation 97.0 % (94-97) 09/06/16 05:04 ABG Base Excess 9.4 mmol/L 09/06/16 05:04 FiO2 45 % 09/06/16 05:04 Sodium 141 mmol/L (137-145) 09/07/16 04:23 Potassium 4.1 mmol/L (3.5-5.1) 09/07/16 04:23 Chloride 96 mmol/L (98-107) L 09/07/16 04:23 Carbon Dioxide 41 mmol/L (22-30) H* 09/07/16 04:23 Anion Gap 4 mmol/L 09/07/16 04:23 BUN 20 mg/dL (7-17) H 09/07/16 04:23 Creatinine 0.30 mg/dL (0.52-1.04) L 09/07/16 04:23 Est GFR (MDRD) Af Amer >60 (>60 ml/min/1.73 sqM) 09/07/16 04:23 Est GFR (MDRD) Non-Af >60 (>60 ml/min/1.73 sqM) 09/07/16 04:23 Glucose 166 mg/dL (74-99) H 09/07/16 04:23 POC Glucose (mg/dL) 146 mg/dL (75-99) H 09/07/16 12:04 POC Glu [employer] Director ID 09/07/16 12:[address] Glu mg/dL 134 mg/dL 09/04/16 05:06 Hemoglobin A1c 6.3 % (4.2-6.1) H 09/04/16 05:06 Plasma Lactic Acid Tim <0.5 mmol/L (0.7-2.0) L 09/04/16 19:57 Calcium 8.9 mg/dL (8.4-10.2) 09/07/16 04:23 Phosphorus 3.5 mg/dL (2.5-4.5) 09/07/16 04:23 Magnesium 1.8 mg/dL (1.6-2.3) 09/07/16 04:23 Total Bilirubin 0.4 mg/dL (0.2-1.3) 09/04/16 19:57 AST 41 U/L (14-36) H 09/04/16 19:57 ALT 32 U/L (9-52) 09/04/16 19:57 Alkaline Phosphatase 74 U/L (38-126) 09/04/16 19:57 Total Protein 6.4 g/dL (6.3-8.2) 09/04/16 19:57 Albumin 3.3 g/dL (3.5-5.0) L 09/04/16 19:57 Urine Color Light Yellow 09/04/16 19:45 Urine Appearance Clear (Clear) 09/04/16 19:45 Urine pH 6.5 (5.0-8.0) 09/04/16 19:45 Ur Specific [place] 1.007 (1.001-1.035) 09/04/16 19:45 Urine Protein Trace (Negative) H 09/04/16 19:45 Urine Glucose (UA) Negative (Negative) 09/04/16 19:45 Urine Ketones Negative (Negative) 09/04/16 19:45 Urine Blood Negative (Negative) 09/04/16 19:45 Urine Nitrate Negative (Negative) 09/04/16 19:45 Urine Bilirubin Negative (Negative) 09/04/16 19:45 Urine Urobilinogen <2.0 mg/dL (<2.0) 09/04/16 19:45 Ur Leukocyte Esterase Negative (Negative) 09/04/16 19:45 CBC & Chem 7: 09/13/16 07:33 09/13/16 07:33 Labs: Abnormal Lab Results - Last 24 Hours (Table) 09/06/16 09/06/16 09/07/16 Range/Units 17:55 23:58 00:20 Hgb (11.4-16.0) gm/dL MCHC (31.0-37.0) g/dL RDW (11.5-15.5) % Plt Count (150-450) k/uL Lymphocytes # (1.0-4.8) k/uL Chloride (98-107) mmol/L Carbon Dioxide (22-30) mmol/L BUN (7-17) mg/dL Creatinine (0.52-1.04) mg/dL Glucose (74-99) mg/dL POC Glucose (mg/dL) 141 H 156 H 158 H (75-99) mg/dL 09/07/16 09/07/16 09/07/16 Range/Units 04:23 04:23 06:49 Hgb 10.3 L (11.4-16.0) gm/dL MCHC 29.5 L (31.0-37.0) g/dL RDW 15.9 H (11.5-15.5) % Plt Count 529 H (150-450) k/uL Lymphocytes # 0.5 L (1.0-4.8) k/uL Chloride 96 L (98-107) mmol/L Carbon Dioxide 41 H* (22-30) mmol/L BUN 20 H (7-17) mg/dL Creatinine 0.30 L (0.52-1.04) mg/dL Glucose 166 H (74-99) mg/dL POC Glucose (mg/dL) 181 H (75-99) mg/dL 09/07/16 Range/Units 12:04 Hgb (11.4-16.0) gm/dL MCHC (31.0-37.0) g/dL RDW (11.5-15.5) % Plt Count (150-450) k/uL Lymphocytes # (1.0-4.8) k/uL Chloride (98-107) mmol/L Carbon Dioxide (22-30) mmol/L BUN (7-17) mg/dL Creatinine (0.52-1.04) mg/dL Glucose (74-99) mg/dL POC Glucose (mg/dL) 146 H (75-99) mg/dL Microbiology - Last 24 Hours (Table) 09/04/16 20:30 Gram Stain - Final Sputum Sputum Culture - Final Streptococcus pneumoniae Assessment and Plan Plan: This is a 45-year-old female who presented to the hospital with acute exacerbation of COPD and noted to have a sputum culture positive for strep pneumoniae. She is currently on Levaquin which will be continued. Continue supportive care. Further recommendations as patient progresses. The above dictated assessment and findings were discussed with Dr. Ng. The impression and plan of care have been directed as dictated. Marleni Lopez nurse practitioner acting as scribe for Dr. Ng. Time with Patient: Greater than 30
[2016-09-07 17:38] LABS: Glucose,Whole Blood 129 mg/dL (75-99)
[2016-09-07] MEDS: NYSTATIN 100,000 UNIT/ML SUSP 500,000 UNIT/5 ML CUP PO SCH ×2 (17:59→20:59)
--- NOTE | 2016-09-07 18:38 | P.PN ---
Subjective 44-year-old with advanced COPD that is admitted multiple times in the hospital with acute exacerbation and difficulty breathing. Comes in to the hospital with difficulty breathing that has progressively gotten worse over last few days. Patient continues to smoke cigarettes at this time. Patient has been taking 20 mg of prednisone at home and maintained on breathing treatments however patient comes in the hospital with risks worsening of breathing. Patient currently is lethargic. Patient was noted to have a arterial blood gas post slightly acidotic. She was started on BiPAP was given a dose of Solu- Medrol 125 mg and given breathing treatments. Patient however has been refusing BiPAP and removes it. Patient continues to have a cough at this time however is not able to bring up any sputum. Patient's FEV1 is around 27% on the last pulmonary function tests. Chest x-ray did not reveal any acute abnormalities 09/05/2016 Patient was having increased work of breathing overnight. A repeated ABG was done which showed a pH of 7.2 and a pCO2 of 101. Hence patient was triaged ICU and patient was intubated and is currently on the ventilator. Patient is currently on 50 mics of propofol however is awake and able to follow commands. Patient apparently has a significant amount of oral an ET tube secretions are thick. Currently on 16 of respiratory rate, tidal volume of 350, FiO2 of 45% and a PEEP of 5 09/06/16 Currently sedated on 50mcg of propofol, however following some commands. Oral and et tube secretions are reported. No other overnight events. 09/07/16 extubated this am. Currently on bipap. is able to answer questions appropriately. Complaints of a sore throat. Objective - Vital Signs Vital signs: Vital Signs Temp 98.1 F 09/07/16 16:00 Pulse 84 09/07/16 18:00 Resp 17 09/07/16 18:00 BP 139/74 09/07/16 18:00 Pulse Ox 96 09/07/16 18:00 Intake & Output 09/06/16 09/07/16 09/07/16 18:59 06:59 18:59 Intake Total 0971.769 3716 1010.000 Output Total 185 465 5841 Balance 713.869 445 -1105.000 Weight 45.6 kg 46.4 kg Intake: IV 580 480 520 Levofloxacin 500Mg-D5w 100 100 Pmx 500 mg In Dextrose/ Water 1 100ml.bag @ 100 mls/hr IVPB Q24H [facility] Rx#: [id number] Sodium Chloride 0.9% 1, 480 480 420 000 ml @ 40 mls/hr IV . Q24H [facility] Rx#:[id number] Intake, IV Titration 158.869 100 250.000 Amount Magnesium Sulfate-D5w Pmx 200 1 gm In Dextrose/Water 1 100ml.bag @ 100 mls/hr IVPB Q1H [facility] Rx#: [id number] Propofol 500 mg In Empty 158.869 100 50.000 Bag 1 bag @ Titrate IV . Q0M [facility] Rx#:[id number] Oral 50 Tube Feeding 320 600 160 Other 80 150 30 Output: Urine 455 777 8299 Other: Voiding Method Indwelling Catheter Indwelling Catheter Indwelling Catheter # Bowel Movements 0 - Exam Gen. appearance on bipap. Lungs diffuse wheezing appreciated anteriorly, slightly improved. no rhonchi appreciated. Heart S1-S2 heard no murmurs appreciated Abdomen soft nontender organomegaly Lower extremity is no edema Neurologically moves all four extremities. - Labs CBC & Chem 7: 09/07/16 04:23 09/07/16 04:23 Labs: Abnormal Lab Results - Last 24 Hours (Table) 09/06/16 09/07/16 09/07/16 Range/Units 23:58 00:20 04:23 Hgb 10.3 L (11.4-16.0) gm/dL MCHC 29.5 L (31.0-37.0) g/dL RDW 15.9 H (11.5-15.5) % Plt Count 529 H (150-450) k/uL Lymphocytes # 0.5 L (1.0-4.8) k/uL Chloride (98-107) mmol/L Carbon Dioxide (22-30) mmol/L BUN (7-17) mg/dL Creatinine (0.52-1.04) mg/dL Glucose (74-99) mg/dL POC Glucose (mg/dL) 156 H 158 H (75-99) mg/dL 09/07/16 09/07/16 09/07/16 Range/Units 04:23 06:49 12:04 Hgb (11.4-16.0) gm/dL MCHC (31.0-37.0) g/dL RDW (11.5-15.5) % Plt Count (150-450) k/uL Lymphocytes # (1.0-4.8) k/uL Chloride 96 L (98-107) mmol/L Carbon Dioxide 41 H* (22-30) mmol/L BUN 20 H (7-17) mg/dL Creatinine 0.30 L (0.52-1.04) mg/dL Glucose 166 H (74-99) mg/dL POC Glucose (mg/dL) 181 H 146 H (75-99) mg/dL 09/07/16 Range/Units 17:36 Hgb (11.4-16.0) gm/dL MCHC (31.0-37.0) g/dL RDW (11.5-15.5) % Plt Count (150-450) k/uL Lymphocytes # (1.0-4.8) k/uL Chloride (98-107) mmol/L Carbon Dioxide (22-30) mmol/L BUN (7-17) mg/dL Creatinine (0.52-1.04) mg/dL Glucose (74-99) mg/dL POC Glucose (mg/dL) 129 H (75-99) mg/dL Microbiology - Last 24 Hours (Table) 09/04/16 20:30 Gram Stain - Final Sputum Sputum Culture - Final Streptococcus pneumoniae Assessment and Plan Plan: Acute metabolic encephalopathy #2 acute on chronic hypoxic hypercapnic respiratory failure secondary to an acute exacerbation of COPD #3 ongoing tobacco use #4 nondistended respiratory acidosis #5 moderate to severe protein calorie malnutrition secondary to advanced COPD #6 cervical cancer #7 Strep pneumoniae tracheobronchitis. Plan breathing tx. Steroids therapy. Continue levaquin continue bipap. Critically ill. Advanced copd.
[2016-09-07] MEDS: traZODone HCL 100 MG TAB PO SCH (20:58)
[2016-09-07] MEDS: risperiDONE 1 MG TAB PO SCH (20:59)
[2016-09-07] MEDS: ASPIRIN 325 MG TAB PO SCH (20:59)
[2016-09-07] MEDS: buPROPion SR 150 MG TABLET.ER PO SCH (20:59)
--- NOTE | 2016-09-07 22:06 | P.CON ---
Consult Note - . Consult date: 09/07/16 Assessment/Plan:: This is a 45-year-old female known to ID service. She has a past medical history for advanced end-stage COPD with FEV1 27% of predicted, chronic hypoxic respiratory failure on home O2 and steroid dependent at 20 mg daily. She also has history of previous MRSA pneumonia. Patient presented to the hospital with complaints of shortness of breath that had been going on for a while but significantly worsening. Her initial chest x-ray showed COPD, pulmonary fibrosis. She had a white count of 20, lactic acid less than 0.5, urinalysis was clear with nitrate and leukoesterase negative. Albumin 3.3. Patient was admitted initially to the selective care unit and started on IV Levaquin as well as DuoNeb treatments, IV Solu-Medrol and inhaled steroids. That afternoon, patient developed lethargy and was obtunded ended up being transferred to the intensive care unit and intubated on September 04. She has been maintained in the intensive care unit she has not required vasopressors. She has been successfully extubated this morning. Repeat chest x-ray this morning reveals no acute pulmonary process. She has been followed by pulmonary medicine. She is currently on BiPAP and pulse ox 97%. Her white count is down to 5.5. Sputum culture is showing strep pneumoniae resistant to azithromycin and erythromycin. Patient is complaining of significant sore throat and appears she has oral thrush and has just been ordered for nystatin. Please reconsult note is dictated by nurse practitioner Mrs. Marleni Lopez. Patient does have some discomfort in her mouth or throat. She has been extubated. Some cool solution can be tried to help her discomforts. Her treatment at this time for her strep coccus pneumoniae pneumonia is with levofloxacin which is an excellent choice for what is a somewhat drug-resistant Streptococcus pneumoniae. With her complex status likely ten-day course of therapy will be needed. It is noted she has been extubated and is on BiPAP. We will try to help her discomforts. Her overall prognosis is poor. I agree with evaluation, assessment and plan is dictated by nurse practitioner Mrs. Marleni Lopez.
[2016-09-08] MEDS: HYDROmorphone 2 MG/ML 1 ML SYRINGE IVP PRN ×3 (00:20→08:04)
[2016-09-08] MEDS: methylPREDNISolone SOD SUCCI 125 MG/2 ML VIAL IV SCH ×4 (00:22→19:13)
[2016-09-08] MEDS: HEPARIN SODIUM,PORCINE 5,000 UNIT/ML 1 ML VIAL SQ SCH ×3 (00:22→16:42)
[2016-09-08] MEDS: MAG HYDROX/AL HYDROX/SIMETH 30 ML, LIDOCAINE VISCOUS 30 ML, NYSTATIN 100,000 UNIT/ML SU... PO SCH ×6 (00:22→09:20)
[2016-09-08] MEDS: INSULIN LISPRO (humaLOG) 300 UNIT/3 ML VIAL SQ SCH ×5 (00:22→20:35)
[2016-09-08 00:24] LABS: Glucose,Whole Blood 141 mg/dL (75-99)
[2016-09-08] MEDS: IPRATROPIUM-ALBUTEROL 3 ML NEB INHALATION PRN ×2 (00:28→03:41)
[2016-09-08 04:52] LABS: Anisocytosis Slight; Basophils % (A) 0 %; CH 27.2; CHCM 30.7; Eosinophils % (A) 0 %; HCT 36.8 % (34.0-46.0); HDW 3.06; HGB 10.7 gm/dL (11.4-16.0); Hypochromasia Moderate; Luc # (Auto) 0.09; Luc % (Auto) 2; Lymphocytes # (A) 0.8 k/uL (1.0-4.8); Lymphocytes % (A) 13 %; MCH 25.8 pg (25.0-35.0); MCV 88.8 fL (80.0-100.0); Mean Platelet Volume 7.1; Monocytes # (A) 0.4 k/uL (0-1.0); Monocytes % (A) 7 %; Neutrophils # (A) 4.6 k/uL (1.3-7.7); Neutrophils % (A) 78 %; RBC 4.14 m/uL (3.80-5.40); RDW 16.1 % (11.5-15.5); WBC 5.9 k/uL (3.8-10.6); WBC (Perox) 6.01
[2016-09-08 05:05] LABS: Blood Urea Nitrogen 15 mg/dL (7-17); Calcium 8.7 mg/dL (8.4-10.2); Chloride 94 mmol/L (98-107); Glucose 123 mg/dL (74-99); Magnesium 1.9 mg/dL (1.6-2.3); Non-African American GFR(MDRD) >60 (>60 ml/min/1.73 sqM); Potassium 4.3 mmol/L (3.5-5.1); Sodium 142 mmol/L (137-145)
[2016-09-08 05:12] LABS: Anion Gap 4 mmol/L
[2016-09-08 05:28] LABS: Carbon Dioxide 44 mmol/L (22-30)
[2016-09-08] MEDS ORDERED: Magnesium Replacement Protocol 1 EACH MISC MISCELLANE PRN (05:33)
[2016-09-08] MEDS: MAGNESIUM SULFATE-D5W PMX 1 GM in DEXTROSE/WATER 1 100ML.BAG IVPB SCH ×2 (06:02→07:59)
[2016-09-08 06:03] LABS: Glucose,Whole Blood 133 mg/dL (75-99)
[2016-09-08] MEDS: BUDESONIDE 0.5 MG/2 ML NEBU INHALATION SCH ×2 (08:06→19:02)
[2016-09-08] MEDS: IPRATROPIUM-ALBUTEROL 3 ML NEB INHALATION SCH ×4 (08:06→18:55)
[2016-09-08] MEDS: FORMOTEROL FUMARATE 20 MCG/2 ML NEBU INHALATION SCH ×2 (08:06→19:02)
[2016-09-08] MEDS: THEOPHYLLINE 24 HOUR 300 MG CAP.ER.24H PO SCH ×2 (08:08→20:23)
[2016-09-08] MEDS: PANTOPRAZOLE 40 MG/10 ML VIAL IV SCH (08:08)
[2016-09-08] MEDS: NYSTATIN 100,000 UNIT/ML SUSP 500,000 UNIT/5 ML CUP PO SCH ×4 (08:08→20:24)
--- NOTE | 2016-09-08 08:13 | XR ---
EXAMINATION TYPE: XR chest 1V DATE OF EXAM: 09/08/2016 6:55 AM COMPARISON: 09/07/2016 HISTORY: 45 year-old female respiratory failure TECHNIQUE: Single frontal view of the chest is obtained. FINDINGS: Both ET and NG tube have been removed in the interval. Heart is normal size. Aorta and pulmonary vasc ulature are within normal dates. Some residual atelectasis or infiltrate at the peripheral right midl kenny. Otherwise, no additional consolidation or pleural effusion. IMPRESSION: Some stable minimal residual atelectasis/scarring or infiltrate at the peripheral right mid lung. No acute cardiopulmonary process.
[2016-09-08] MEDS: HYDROcodone/APAP 10-325MG 1 EACH TAB PO PRN ×2 (10:11→16:42)
[2016-09-08] MEDS: LEVOFLOXACIN 500MG-D5W PMX 500 MG in DEXTROSE/WATER 1 100ML.BAG IVPB SCH (10:15)
[2016-09-08 12:01] LABS: Glucose,Whole Blood 171 mg/dL (75-99)
--- NOTE | 2016-09-08 13:54 | P.PN ---
Subjective Principal diagnosis: Acute hypoxic and hypercapnic respiratory failure secondary to COPD 45-year-old female patient with advanced end-stage COPD who has had multiple hospitalization for COPD exacerbation. In the past year of 2016, the patient at least 6 hospitalization last one being in June 2016. She unfortunately continues to smoke cigarettes. She is oxygen dependent. She is also steroid dependent and she's been taking 20 mg of prednisone a daily basis. The patient has been noncompliant to smoking . She has been maintained on a combination of Spiriva and Symbicort on outpatient basis in addition to her daily prednisone. Her baseline FEV1 is around 27% of predicted. She has chronic hypoxic respiratory failure. She has had previous MRSA pneumonia. The patient came in for increased shortness of breath and at time of my evaluation this morning the patient was in considerable respiratory distress and she was using accessory muscles of breathing. She was placed on BiPAP accordingly at a pressure of 10 over 5 cm of water. Blood gases while the patient 100% nonrebreather showed a pH of 7.28 with a pCO2 of 82 and pO2 of 73. Chest x-ray shows no evidence of any pneumonia and there is extensive hyperinflation. No fever. No chills. No change in mental status. No nausea. No vomiting. She has a congested cough. She is unable to bring up any sputum. Note that the patient was being treated for acute COPD exacerbation, the patient became progressively more short of breath. She was utilizing BiPAP throughout the afternoon yesterday. She became more lethargic and obtunded and she was headed towards respiratory failure. The blood gas that was done at that time showed a pH of 7.2 with a pCO2 of 101 and pO2 of 144. At that point, the patient got moved to the intensive care unit the patient was intubated and placed on a mechanical ventilator. Reevaluated today on 09/06/2016, patient remains on mechanical ventilation, arousable, follows instruction, ABG showed a pO2 of 97, pCO2 of 68 and pH of 7.34. Chest x-ray showed right midlung atelectasis, doubt infiltrates. Reevaluated today on 09/07/2016, patient was given a weaning trial on CPAP while on mechanical ventilation, and when I examined the patient she sounded fairly clear, no rhonchi and no wheezes, she was alert oriented, she was noted to move good tidal volumes, and her respiratory rate was in the low 20s. Hence considering the patient was doing well clinically, I proceeded to extubating the patient. However the patient fails, she will likely to be reintubated, and then I would recommend tracheostomy for this patient. But it would be best to give her a trial off weaning from mechanical ventilation before we make that decision. Patient was extubated, and a few hours after the extubation she was noted to be tolerating the extubation well. She will have BiPAP at bedside, and if the patient does not improve much BiPAP could be used. Chest x-ray was also reviewed, no evidence of significant infiltrate noted on the chest x-ray today. Reevaluated today on 09/08/2016, patient has been intermittently on BiPAP, and at times she is on high flow nasal cannula. She is doing quite well, and basically better than expected. Considering her underlying severe stage of COPD. Electrolytes were reviewed her bicarb level is 44 renal profile is normal. CBC is relatively normal, hemoglobin is 10.7. Objective - Vital Signs Vital signs: Vital Signs Temp 98.2 F 09/08/16 12:00 Pulse 94 09/08/16 13:00 Resp 18 09/08/16 13:00 BP 150/92 09/08/16 13:00 Pulse Ox 93 L 09/08/16 13:00 Intake & Output 09/07/16 09/08/16 09/08/16 18:59 06:59 18:59 Intake Total 1010.000 870 645 Output Total 2115 1716 705 Balance -1105.000 -846 -60 Weight 46.4 kg 49.3 kg Intake: IV 520 620 320 Levofloxacin 500Mg-D5w 100 100 Pmx 500 mg In Dextrose/ Water 1 100ml.bag @ 100 mls/hr IVPB Q24H [facility] Rx#: [id number] Magnesium Sulfate-D5w Pmx 100 40 1 gm In Dextrose/Water 1 100ml.bag @ 100 mls/hr IVPB Q1H [facility] Rx#: [id number] Sodium Chloride 0.9% 1, 420 520 180 000 ml @ 40 mls/hr IV . Q24H [facility] Rx#:[id number] Intake, IV Titration 250.000 100 Amount Magnesium Sulfate-D5w Pmx 200 1 gm In Dextrose/Water 1 100ml.bag @ 100 mls/hr IVPB Q1H [facility] Rx#: [id number] Magnesium Sulfate-D5w Pmx 100 1 gm In Dextrose/Water 1 100ml.bag @ 100 mls/hr IVPB Q1H [facility] Rx#: [id number] Propofol 500 mg In Empty 50.000 Bag 1 bag @ Titrate IV . Q0M [facility] Rx#:[id number] Oral 50 250 225 Tube Feeding 160 Other 30 Output: Urine 2115 1716 705 Other: Voiding Method Indwelling Catheter Indwelling Catheter Indwelling Catheter # Voids 1 # Bowel Movements 0 - Exam Physical Exam: Revealed a 45-year-old female chronically ill, on mechanical ventilation, appropriate, follows instructions, on CPAP. HEENT:[Neck is supple.] [No neck masses.] [No thyromegaly.] [No JVD.] Chest: [Diminished breath sound bilaterally no rhonchi, no wheezes] Cardiac Exam: [Normal S1 and S2, no S3 gallop, no murmur.] Abdomen: [Soft, nontender, no megaly, no rebound, no guarding, normal bowel sounds.] Extremities: [No clubbing, no edema, no cyanosis.] Neurological Exam: [No focal neurologic deficit.] - Labs CBC & Chem 7: 09/08/16 04:13 09/08/16 04:13 Labs: Abnormal Lab Results - Last 24 Hours (Table) 09/07/16 09/08/16 09/08/16 Range/Units 17:36 00:22 04:13 Hgb 10.7 L (11.4-16.0) gm/dL MCHC 29.0 L (31.0-37.0) g/dL RDW 16.1 H (11.5-15.5) % Plt Count 526 H (150-450) k/uL Lymphocytes # 0.8 L (1.0-4.8) k/uL Chloride (98-107) mmol/L Carbon Dioxide (22-30) mmol/L Creatinine (0.52-1.04) mg/dL Glucose (74-99) mg/dL POC Glucose (mg/dL) 129 H 141 H (75-99) mg/dL 09/08/16 09/08/16 09/08/16 Range/Units 04:13 06:01 11:59 Hgb (11.4-16.0) gm/dL MCHC (31.0-37.0) g/dL RDW (11.5-15.5) % Plt Count (150-450) k/uL Lymphocytes # (1.0-4.8) k/uL Chloride 94 L (98-107) mmol/L Carbon Dioxide 44 H* (22-30) mmol/L Creatinine 0.32 L (0.52-1.04) mg/dL Glucose 123 H (74-99) mg/dL POC Glucose (mg/dL) 133 H 171 H (75-99) mg/dL Microbiology - Last 24 Hours (Table) 09/04/16 20:30 Gram Stain - Final Sputum Sputum Culture - Final Streptococcus pneumoniae Assessment and Plan Plan: 1 acute hypercapnic respiratory failure secondary to advanced end-stage COPD with a baseline FEV1 of 27% of predicted. Patient was extubated on 09/07/2016 On 09/05/2016 the patient is intubated on a mechanical ventilator. She is on a volume cycled assist-control mode of ventilation. Blood gases showed improvement acid-base status. Peak airway pressure remains elevated and the patient remains quite bronchospastic and wheezy. She is treated with a chem initial broncho-diet and steroids. She is also on antibiotics. There is improvement since yesterday. On 09/06/2016, patient remains on mechanical ventilation, continues to have significant amount of wheezing and rhonchi noted bilaterally on physical examination, clearly patient is not ready for weaning and extubation at this point. On 09/07/2016, patient was extubated, she will be given initially at trial on high flow nasal cannula, and if not tolerated may consider placing the patient on BiPAP. On 09/08/2016, patient remains off mechanical ventilation, intermittently using BiPAP, and she seems to be doing well and better than expected overall. 2 acute hypercapnic respiratory failure, status post intubation mechanical ventilation. 3 acute on top of chronic hypercapnic respiratory failure with a component of respiratory acidosis on the blood gas 4 chronic hypoxic respiratory failure with further decompensation in her oxygenation due to COPD exacerbation. 5 chronic steroid dependence 6 cachectic/catabolic state secondary to advanced COPD 7 nicotine addiction/smoking 8 cervical cancer 9 cervical spondylosis and lumbar spine spondylosis 10 peptic ulcer disease 11 remote history of MRSA pneumonia Plan Continue present supportive care measures, continue bronchodilators, antibiotics , patient is on Levaquin, continue steroids, patient really monitored in the ICU for the next 24 hours, and if she continues to do well she'll be transferred out of the ICU to a regular medical floor. Critical care time is 35 minutes Time with Patient: Greater than 30
--- NOTE | 2016-09-08 17:43 | P.PN ---
Subjective Patient remains in intensive care unit. Patient has been extubated. Patient's awake and alert Continues with tight wheeze Objective - Vital Signs Vital signs: Vital Signs Temp 98.2 F 09/08/16 12:00 Pulse 84 09/08/16 16:00 Resp 36 H 09/08/16 16:00 BP 127/82 09/08/16 16:00 Pulse Ox 91 L 09/08/16 16:00 Intake & Output 09/07/16 09/08/16 09/08/16 18:59 06:59 18:59 Intake Total 1010.530 665 2405 Output Total 2114 1715 2054 Balance -1105.000 -846 -1000 Weight 46.4 kg 49.3 kg Intake: IV 520 620 480 Levofloxacin 500Mg-D5w 100 100 Pmx 500 mg In Dextrose/ Water 1 100ml.bag @ 100 mls/hr IVPB Q24H [facility] Rx#: [id number] Magnesium Sulfate-D5w Pmx 100 40 1 gm In Dextrose/Water 1 100ml.bag @ 100 mls/hr IVPB Q1H [facility] Rx#: [id number] Sodium Chloride 0.9% 1, 420 520 340 000 ml @ 40 mls/hr IV . Q24H [facility] Rx#:[id number] Intake, IV Titration 250.000 100 Amount Magnesium Sulfate-D5w Pmx 200 1 gm In Dextrose/Water 1 100ml.bag @ 100 mls/hr IVPB Q1H [facility] Rx#: [id number] Magnesium Sulfate-D5w Pmx 100 1 gm In Dextrose/Water 1 100ml.bag @ 100 mls/hr IVPB Q1H [facility] Rx#: [id number] Propofol 500 mg In Empty 50.000 Bag 1 bag @ Titrate IV . Q0M [facility] Rx#:[id number] Oral 50 250 475 Tube Feeding 160 Other 30 Output: Urine 2114 1715 2054 Other: Voiding Method Indwelling Catheter Indwelling Catheter Indwelling Catheter # Voids 1 # Bowel Movements 0 - Constitutional General appearance: Present: thin - EENT Eyes: Present: PERRLA Ears: bilateral: normal - Neck Neck: Present: normal ROM - Respiratory Respiratory: bilateral: wheezing - Cardiovascular Rhythm: regular - Gastrointestinal General gastrointestinal: Present: soft - Integumentary Integumentary: Present: normal - Neurologic Neurologic: Present: CNII-XII intact - Musculoskeletal Musculoskeletal: Present: generalized weakness - Psychiatric Psychiatric: Present: A&O x's 3, intact judgment & insight - Labs CBC & Chem 7: 09/08/16 04:13 09/08/16 04:13 Labs: Abnormal Lab Results - Last 24 Hours (Table) 09/08/16 09/08/16 09/08/16 Range/Units 00:22 04:13 04:13 Hgb 10.7 L (11.4-16.0) gm/dL MCHC 29.0 L (31.0-37.0) g/dL RDW 16.1 H (11.5-15.5) % Plt Count 526 H (150-450) k/uL Lymphocytes # 0.8 L (1.0-4.8) k/uL Chloride 94 L (98-107) mmol/L Carbon Dioxide 44 H* (22-30) mmol/L Creatinine 0.32 L (0.52-1.04) mg/dL Glucose 123 H (74-99) mg/dL POC Glucose (mg/dL) 141 H (75-99) mg/dL 09/08/16 09/08/16 Range/Units 06:01 11:59 Hgb (11.4-16.0) gm/dL MCHC (31.0-37.0) g/dL RDW (11.5-15.5) % Plt Count (150-450) k/uL Lymphocytes # (1.0-4.8) k/uL Chloride (98-107) mmol/L Carbon Dioxide (22-30) mmol/L Creatinine (0.52-1.04) mg/dL Glucose (74-99) mg/dL POC Glucose (mg/dL) 133 H 171 H (75-99) mg/dL - Imaging and Cardiology Chest x-ray: report reviewed Assessment and Plan Plan: Assessment Acute metabolic encephalopathy Acute on chronic hypoxic hypercapnic respiratory failure secondary to exacerbation of COPD Post mechanical ventilation Ongoing tobacco use Respiratory acidosis Moderate to severe protein calorie malnutrition secondary to advanced COPD Strep pneumo and I tracheobronchitis Plan Continue consultation with Dr. Hernandez Molina Continues with bronchodilators antibiotic Levaquin and steroids If patient remains stable hopeful transfer from the ICU tomorrow
[2016-09-08 17:49] LABS: Glucose,Whole Blood 109 mg/dL (75-99)
[2016-09-08] MEDS: buPROPion SR 150 MG TABLET.ER PO SCH (20:23)
[2016-09-08] MEDS: ASPIRIN 325 MG TAB PO SCH (20:23)
[2016-09-08] MEDS: risperiDONE 1 MG TAB PO SCH (20:23)
[2016-09-08] MEDS: traZODone HCL 100 MG TAB PO SCH (20:23)
[2016-09-08] MEDS: SODIUM CHLORIDE 0.9% 1,000 ML IV SCH (20:24)
[2016-09-08 20:35] LABS: Glucose,Whole Blood 156 mg/dL (75-99)
--- NOTE | 2016-09-08 21:38 | P.PN ---
Subjective Principal diagnosis: Bacteremia This is a 45-year-old female known to ID service. She has a past medical history for advanced end-stage COPD with FEV1 27% of predicted, chronic hypoxic respiratory failure on home O2 and steroid dependent at 20 mg daily. She also has history of previous MRSA pneumonia. Patient presented to the hospital with complaints of shortness of breath that had been going on for a while but significantly worsening. Her initial chest x-ray showed COPD, pulmonary fibrosis. She had a white count of 20, lactic acid less than 0.5, urinalysis was clear with nitrate and leukoesterase negative. Albumin 3.3. Patient was admitted initially to the selective care unit and started on IV Levaquin as well as DuoNeb treatments, IV Solu-Medrol and inhaled steroids. That afternoon, patient developed lethargy and was obtunded ended up being transferred to the intensive care unit and intubated on September 04. She has been maintained in the intensive care unit she has not required vasopressors. She has been successfully extubated this morning. Repeat chest x-ray this morning reveals no acute pulmonary process. She has been followed by pulmonary medicine. She is currently on BiPAP and pulse ox 97%. Her white count is down to 5.5. Sputum culture is showing strep pneumoniae resistant to azithromycin and erythromycin. Despite the cool solution she's still having a bit of a sore throat. Her shortness of breath is improved. She's had time off of BiPAP. Objective - Vital Signs Vital signs: Vital Signs Temp 98.2 F 09/08/16 12:00 Pulse 95 09/08/16 19:21 Resp 23 09/08/16 19:00 BP 137/86 09/08/16 19:00 Pulse Ox 98 09/08/16 19:00 Intake & Output 09/08/16 09/08/16 09/09/16 06:59 18:59 06:59 Intake Total 870 1135 40 Output Total 2366 0650 120 Balance -846 -1445 -80 Weight 49.3 kg Intake: IV 620 560 40 Levofloxacin 500Mg-D5w 100 Pmx 500 mg In Dextrose/ Water 1 100ml.bag @ 100 mls/hr IVPB Q24H [facility] Rx#: [id number] Magnesium Sulfate-D5w Pmx 100 40 1 gm In Dextrose/Water 1 100ml.bag @ 100 mls/hr IVPB Q1H [facility] Rx#: [id number] Sodium Chloride 0.9% 1, 520 420 40 000 ml @ 40 mls/hr IV . Q24H [facility] Rx#:[id number] Intake, IV Titration 100 Amount Magnesium Sulfate-D5w Pmx 100 1 gm In Dextrose/Water 1 100ml.bag @ 100 mls/hr IVPB Q1H [facility] Rx#: [id number] Oral 250 475 Output: Urine 1716 2580 120 Other: Voiding Method Indwelling Catheter Indwelling Catheter # Voids 1 # Bowel Movements 0 - Exam Gen: This is a thin 45-year-old female. She is currently on BiPAP and does not appear to be in respiratory distress. She appears comfortable. HEENT: Head is atraumatic, normocephalic. Pupils equal, round. Sclerae is anicteric. White patches on the tongue. NECK: Supple. No JVD. No lymphadenopathy. No thyromegaly. LUNGS: Symmetrical air entry that is diminished. Expiratory wheezes scattered the lung cagle. No balta bronchial sounds or egophony. HEART: Irregular rate and rhythm. No murmur. ABDOMEN: Flat. Soft. Bowel sounds are present. No masses. No tenderness. EXTREMITIES: No pedal edema. No calf tenderness. Dorsalis pedis is strong bilaterally. NEUROLOGICAL: Patient is awake, alert and oriented x3 - Labs CBC & Chem 7: 09/08/16 04:13 09/08/16 04:13 Labs: Abnormal Lab Results - Last 24 Hours (Table) 09/08/16 09/08/16 09/08/16 Range/Units 00:22 04:13 04:13 Hgb 10.7 L (11.4-16.0) gm/dL MCHC 29.0 L (31.0-37.0) g/dL RDW 16.1 H (11.5-15.5) % Plt Count 526 H (150-450) k/uL Lymphocytes # 0.8 L (1.0-4.8) k/uL Chloride 94 L (98-107) mmol/L Carbon Dioxide 44 H* (22-30) mmol/L Creatinine 0.32 L (0.52-1.04) mg/dL Glucose 123 H (74-99) mg/dL POC Glucose (mg/dL) 141 H (75-99) mg/dL 09/08/16 09/08/16 09/08/16 Range/Units 06:01 11:59 17:47 Hgb (11.4-16.0) gm/dL MCHC (31.0-37.0) g/dL RDW (11.5-15.5) % Plt Count (150-450) k/uL Lymphocytes # (1.0-4.8) k/uL Chloride (98-107) mmol/L Carbon Dioxide (22-30) mmol/L Creatinine (0.52-1.04) mg/dL Glucose (74-99) mg/dL POC Glucose (mg/dL) 133 H 171 H 109 H (75-99) mg/dL 09/08/16 Range/Units 20:34 Hgb (11.4-16.0) gm/dL MCHC (31.0-37.0) g/dL RDW (11.5-15.5) % Plt Count (150-450) k/uL Lymphocytes # (1.0-4.8) k/uL Chloride (98-107) mmol/L Carbon Dioxide (22-30) mmol/L Creatinine (0.52-1.04) mg/dL Glucose (74-99) mg/dL POC Glucose (mg/dL) 156 H (75-99) mg/dL Laboratory Results WBC 5.9 k/uL (3.8-10.6) 09/08/16 04:13 RBC 4.14 m/uL (3.80-5.40) 09/08/16 04:13 Hgb 10.7 gm/dL (11.4-16.0) L 09/08/16 04:13 Hct 36.8 % (34.0-46.0) 09/08/16 04:13 MCV 88.8 fL (80.0-100.0) 09/08/16 04:13 MCH 25.8 pg (25.0-35.0) 09/08/16 04:13 MCHC 29.0 g/dL (31.0-37.0) L 09/08/16 04:13 RDW 16.1 % (11.5-15.5) H 09/08/16 04:13 Plt Count 526 k/uL (150-450) H 09/08/16 04:13 Neutrophils % 78 % 09/08/16 04:13 Neutrophils % (Manual) 61.0 % 09/04/16 02:09 Band Neutrophils % 26.0 % 09/04/16 02:09 Lymphocytes % 13 % 09/08/16 04:13 Lymphocytes % (Manual) 10.0 % 09/04/16 02:09 Monocytes % 7 % 09/08/16 04:13 Monocytes % (Manual) 3.0 % 09/04/16 02:09 Eosinophils % 0 % 09/08/16 04:13 Basophils % 0 % 09/08/16 04:13 Neutrophils # 4.6 k/uL (1.3-7.7) 09/08/16 04:13 Neutrophils # (Manual) 14.2 k/uL (1.3-7.7) H 09/04/16 02:09 Lymphocytes # 0.8 k/uL (1.0-4.8) L 09/08/16 04:13 Lymphocytes # (Manual) 1.6 k/uL (1.0-4.8) 09/04/16 02:09 Monocytes # 0.4 k/uL (0-1.0) 09/08/16 04:13 Monocytes # (Manual) 0.5 k/uL (0-1.0) 09/04/16 02:09 Eosinophils # 0.0 k/uL (0-0.7) 09/08/16 04:13 Basophils # 0.0 k/uL (0-0.2) 09/08/16 04:13 Nucleated RBCs 0 /100 WBC (0-0) 09/04/16 02:09 Manual Slide Review Performed 09/04/16 02:09 Hypochromasia Moderate 09/08/16 04:13 Anisocytosis Slight 09/08/16 04:13 Sample Site LRAD 09/06/16 05:04 ABG pH 7.34 (7.35-7.45) L 09/06/16 05:04 ABG pCO2 68 mmHg (35-45) H 09/06/16 05:04 ABG pO2 97 mmHg (83-108) 09/06/16 05:04 ABG HCO3 35 mmol/L (21-25) H 09/06/16 05:04 ABG Total CO2 37 mmol/L (19-24) H 09/06/16 05:04 ABG O2 Saturation 97.0 % (94-97) 09/06/16 05:04 ABG Base Excess 9.4 mmol/L 09/06/16 05:04 FiO2 45 % 09/06/16 05:04 Sodium 142 mmol/L (137-145) 09/08/16 04:13 Potassium 4.3 mmol/L (3.5-5.1) 09/08/16 04:13 Chloride 94 mmol/L (98-107) L 09/08/16 04:13 Carbon Dioxide 44 mmol/L (22-30) H* 09/08/16 04:13 Anion Gap 4 mmol/L 09/08/16 04:13 BUN 15 mg/dL (7-17) 09/08/16 04:13 Creatinine 0.32 mg/dL (0.52-1.04) L 09/08/16 04:13 Est GFR (MDRD) Af Amer >60 (>60 ml/min/1.73 sqM) 09/08/16 04:13 Est GFR (MDRD) Non-Af >60 (>60 ml/min/1.73 sqM) 09/08/16 04:13 Glucose 123 mg/dL (74-99) H 09/08/16 04:13 POC Glucose (mg/dL) 156 mg/dL (75-99) H 09/08/16 20:34 POC Glu Value Analysis Coordinator Adela Almanzar 09/08/16 20:[address] Glu mg/dL 134 mg/dL 09/04/16 05:06 Hemoglobin A1c 6.3 % (4.2-6.1) H 09/04/16 05:06 Plasma Lactic Acid Tim <0.5 mmol/L (0.7-2.0) L 09/04/16 19:57 Calcium 8.7 mg/dL (8.4-10.2) 09/08/16 04:13 Phosphorus 3.0 mg/dL (2.5-4.5) 09/08/16 04:13 Magnesium 1.9 mg/dL (1.6-2.3) 09/08/16 04:13 Total Bilirubin 0.4 mg/dL (0.2-1.3) 09/04/16 19:57 AST 41 U/L (14-36) H 09/04/16 19:57 ALT 32 U/L (9-52) 09/04/16 19:57 Alkaline Phosphatase 74 U/L (38-126) 09/04/16 19:57 Total Protein 6.4 g/dL (6.3-8.2) 09/04/16 19:57 Albumin 3.3 g/dL (3.5-5.0) L 09/04/16 19:57 Urine Color Light Yellow 09/04/16 19:45 Urine Appearance Clear (Clear) 09/04/16 19:45 Urine pH 6.5 (5.0-8.0) 09/04/16 19:45 Ur Specific [place] 1.007 (1.001-1.035) 09/04/16 19:45 Urine Protein Trace (Negative) H 09/04/16 19:45 Urine Glucose (UA) Negative (Negative) 09/04/16 19:45 Urine Ketones Negative (Negative) 09/04/16 19:45 Urine Blood Negative (Negative) 09/04/16 19:45 Urine Nitrate Negative (Negative) 09/04/16 19:45 Urine Bilirubin Negative (Negative) 09/04/16 19:45 Urine Urobilinogen <2.0 mg/dL (<2.0) 09/04/16 19:45 Ur Leukocyte Esterase Negative (Negative) 09/04/16 19:45 Microbiology 09/04/16 20:30 Sputum Gram Stain - Final 09/04/16 20:30 Sputum Sputum Culture - Final Streptococcus pneumoniae 09/04/16 19:45 Urine,Catheterized Urine Culture - Final Assessment and Plan (1) Acute exacerbation of chronic obstructive airways disease Status: Acute (2) Sepsis due to Streptococcus pneumoniae Narrative/Plan: 45-year-old female with advanced COPD presented to hospital with exacerbation of underlying COPD. Without evidence of bacteremia and sepsis and respiratory failure. She's been treated with BiPAP therapy with improvement. Does feel better today. Cultures show evidence of a septic coccus pneumoniae susceptible to levofloxacin. This will be continued for a total of 10 days at this time. Continue supportive care. She's feeling better today. No other positive cultures. The significant leukocytosis has improved. Status: Acute
[2016-09-09] MEDS: IPRATROPIUM-ALBUTEROL 3 ML NEB INHALATION PRN ×2 (00:05→03:07)
[2016-09-09] MEDS: methylPREDNISolone SOD SUCCI 125 MG/2 ML VIAL IV SCH ×5 (00:36→23:13)
[2016-09-09] MEDS: HEPARIN SODIUM,PORCINE 5,000 UNIT/ML 1 ML VIAL SQ SCH ×4 (00:37→23:13)
[2016-09-09] MEDS: HYDROcodone/APAP 10-325MG 1 EACH TAB PO PRN ×3 (04:19→16:23)
[2016-09-09 04:56] LABS: Anisocytosis Slight; Basophils % (A) 1 %; CHCM 30.9; Eosinophils % (A) 0 %; HCT 40.3 % (34.0-46.0); HGB 11.8 gm/dL (11.4-16.0); Hypochromasia Moderate; Luc # (Auto) 0.08; Luc % (Auto) 1; Lymphocytes # (A) 0.8 k/uL (1.0-4.8); Lymphocytes % (A) 12 %; MCH 25.8 pg (25.0-35.0); MCHC 29.4 g/dL (31.0-37.0); MCV 87.9 fL (80.0-100.0); Monocytes # (A) 0.3 k/uL (0-1.0); Monocytes % (A) 4 %; Neutrophils # (A) 5.3 k/uL (1.3-7.7); Neutrophils % (A) 82 %; RBC 4.59 m/uL (3.80-5.40); WBC 6.5 k/uL (3.8-10.6); WBC (Perox) 7.21
[2016-09-09 05:10] LABS: Blood Urea Nitrogen 18 mg/dL (7-17); Calcium 9.3 mg/dL (8.4-10.2); Chloride 97 mmol/L (98-107); Glucose 175 mg/dL (74-99); Magnesium 1.9 mg/dL (1.6-2.3); Non-African American GFR(MDRD) >60 (>60 ml/min/1.73 sqM); Phosphorous 3.4 mg/dL (2.5-4.5); Potassium 4.1 mmol/L (3.5-5.1); Sodium 143 mmol/L (137-145)
[2016-09-09 05:17] LABS: Anion Gap 6 mmol/L
[2016-09-09 05:26] LABS: Carbon Dioxide 40 mmol/L (22-30)
[2016-09-09 06:03] LABS: Glucose,Whole Blood 147 mg/dL (75-99)
[2016-09-09] MEDS: ALPRAZolam 0.25 MG TAB PO PRN ×2 (07:59→19:35)
[2016-09-09] MEDS: THEOPHYLLINE 24 HOUR 300 MG CAP.ER.24H PO SCH ×2 (08:00→20:24)
[2016-09-09] MEDS: PANTOPRAZOLE 40 MG/10 ML VIAL IV SCH (08:00)
[2016-09-09] MEDS: NYSTATIN 100,000 UNIT/ML SUSP 500,000 UNIT/5 ML CUP PO SCH ×4 (08:00→20:27)
[2016-09-09] MEDS: BUDESONIDE 0.5 MG/2 ML NEBU INHALATION SCH ×2 (08:14→20:12)
[2016-09-09] MEDS: FORMOTEROL FUMARATE 20 MCG/2 ML NEBU INHALATION SCH ×2 (08:14→20:12)
[2016-09-09] MEDS: IPRATROPIUM-ALBUTEROL 3 ML NEB INHALATION SCH ×4 (08:14→20:12)
[2016-09-09] MEDS: INSULIN LISPRO (humaLOG) 300 UNIT/3 ML VIAL SQ SCH ×4 (08:54→20:27)
[2016-09-09 10:46] VITALS: BMI 18.8
[2016-09-09 11:39] LABS: Glucose,Whole Blood 159 mg/dL (75-99)
[2016-09-09] MEDS: LEVOFLOXACIN 500MG-D5W PMX 500 MG in DEXTROSE/WATER 1 100ML.BAG IVPB SCH (11:41)
--- NOTE | 2016-09-09 11:57 | P.PN ---
Subjective Principal diagnosis: Patient appears to be in more distress today than yesterday. Using BiPAP. Noted to have tight wheezy cough patient remains alert and orientated Objective - Vital Signs Vital signs: Vital Signs Temp 98.6 F 09/09/16 08:00 Pulse 99 09/09/16 11:00 Resp 23 09/09/16 11:00 BP 151/95 09/09/16 11:00 Pulse Ox 95 09/09/16 11:00 Intake & Output 09/08/16 09/09/16 09/09/16 18:59 06:59 18:59 Intake Total 1135 820 200 Output Total 2580 1895 815 Balance -2488 -2081 -825 Weight 43.7 kg 43.7 kg Intake: IV 560 520 200 Levofloxacin 500Mg-D5w 100 Pmx 500 mg In Dextrose/ Water 1 100ml.bag @ 100 mls/hr IVPB Q24H [facility] Rx#: [id number] Magnesium Sulfate-D5w Pmx 40 1 gm In Dextrose/Water 1 100ml.bag @ 100 mls/hr IVPB Q1H [facility] Rx#: [id number] Sodium Chloride 0.9% 1, 420 520 200 000 ml @ 40 mls/hr IV . Q24H [facility] Rx#:[id number] Intake, IV Titration 100 Amount Magnesium Sulfate-D5w Pmx 100 1 gm In Dextrose/Water 1 100ml.bag @ 100 mls/hr IVPB Q1H [facility] Rx#: [id number] Oral 475 300 Output: Urine 2580 1895 815 Other: Voiding Method Indwelling Catheter Indwelling Catheter Indwelling Catheter - Constitutional General appearance: Present: thin - EENT Eyes: Present: PERRLA Ears: bilateral: normal - Neck Neck: Present: normal ROM - Respiratory Respiratory: bilateral: diminished, wheezing - Cardiovascular Rhythm: regular - Integumentary Integumentary: Present: normal - Neurologic Neurologic: Present: CNII-XII intact - Musculoskeletal Musculoskeletal: Present: generalized weakness - Psychiatric Psychiatric: Present: A&O x's 3, appropriate affect, intact judgment & insight - Labs CBC & Chem 7: 09/09/16 04:45 09/09/16 04:45 Labs: Abnormal Lab Results - Last 24 Hours (Table) 09/08/16 09/08/16 09/08/16 Range/Units 11:59 17:47 20:34 MCHC (31.0-37.0) g/dL RDW (11.5-15.5) % Plt Count (150-450) k/uL Lymphocytes # (1.0-4.8) k/uL Chloride (98-107) mmol/L Carbon Dioxide (22-30) mmol/L BUN (7-17) mg/dL Creatinine (0.52-1.04) mg/dL Glucose (74-99) mg/dL POC Glucose (mg/dL) 171 H 109 H 156 H (75-99) mg/dL 09/09/16 09/09/16 09/09/16 Range/Units 04:45 04:45 06:01 MCHC 29.4 L (31.0-37.0) g/dL RDW 16.0 H (11.5-15.5) % Plt Count 578 H (150-450) k/uL Lymphocytes # 0.8 L (1.0-4.8) k/uL Chloride 97 L (98-107) mmol/L Carbon Dioxide 40 H* (22-30) mmol/L BUN 18 H (7-17) mg/dL Creatinine 0.30 L (0.52-1.04) mg/dL Glucose 175 H (74-99) mg/dL POC Glucose (mg/dL) 147 H (75-99) mg/dL 09/09/16 Range/Units 11:37 MCHC (31.0-37.0) g/dL RDW (11.5-15.5) % Plt Count (150-450) k/uL Lymphocytes # (1.0-4.8) k/uL Chloride (98-107) mmol/L Carbon Dioxide (22-30) mmol/L BUN (7-17) mg/dL Creatinine (0.52-1.04) mg/dL Glucose (74-99) mg/dL POC Glucose (mg/dL) 159 H (75-99) mg/dL Assessment and Plan Plan: Assessment Acute metabolic encephalopathy Acute on chronic hypoxic hypercapnic respiratory failure secondary to acute exacerbation of COPD post mechanical ventilation Ongoing tobacco use Respiratory acidosis Moderate to severe calorie malnutrition secondary to advanced COPD History of cervical cancer Strep pneumo 9 tracheobronchitis with sepsis Plan Continue bronchodilators antibiotics Levaquin and steroid therapy Continue consultation with Dr. Ng and Dr Molina
--- NOTE | 2016-09-09 12:39 | P.PN ---
Subjective Principal diagnosis: Acute hypoxic and hypercapnic respiratory failure secondary to COPD 45-year-old female patient with advanced end-stage COPD who has had multiple hospitalization for COPD exacerbation. In the past year of 2016, the patient at least 6 hospitalization last one being in June 2016. She unfortunately continues to smoke cigarettes. She is oxygen dependent. She is also steroid dependent and she's been taking 20 mg of prednisone a daily basis. The patient has been noncompliant to smoking . She has been maintained on a combination of Spiriva and Symbicort on outpatient basis in addition to her daily prednisone. Her baseline FEV1 is around 27% of predicted. She has chronic hypoxic respiratory failure. She has had previous MRSA pneumonia. The patient came in for increased shortness of breath and at time of my evaluation this morning the patient was in considerable respiratory distress and she was using accessory muscles of breathing. She was placed on BiPAP accordingly at a pressure of 10 over 5 cm of water. Blood gases while the patient 100% nonrebreather showed a pH of 7.28 with a pCO2 of 82 and pO2 of 73. Chest x-ray shows no evidence of any pneumonia and there is extensive hyperinflation. No fever. No chills. No change in mental status. No nausea. No vomiting. She has a congested cough. She is unable to bring up any sputum. Note that the patient was being treated for acute COPD exacerbation, the patient became progressively more short of breath. She was utilizing BiPAP throughout the afternoon yesterday. She became more lethargic and obtunded and she was headed towards respiratory failure. The blood gas that was done at that time showed a pH of 7.2 with a pCO2 of 101 and pO2 of 144. At that point, the patient got moved to the intensive care unit the patient was intubated and placed on a mechanical ventilator. Reevaluated today on 09/06/2016, patient remains on mechanical ventilation, arousable, follows instruction, ABG showed a pO2 of 97, pCO2 of 68 and pH of 7.34. Chest x-ray showed right midlung atelectasis, doubt infiltrates. Reevaluated today on 09/07/2016, patient was given a weaning trial on CPAP while on mechanical ventilation, and when I examined the patient she sounded fairly clear, no rhonchi and no wheezes, she was alert oriented, she was noted to move good tidal volumes, and her respiratory rate was in the low 20s. Hence considering the patient was doing well clinically, I proceeded to extubating the patient. However the patient fails, she will likely to be reintubated, and then I would recommend tracheostomy for this patient. But it would be best to give her a trial off weaning from mechanical ventilation before we make that decision. Patient was extubated, and a few hours after the extubation she was noted to be tolerating the extubation well. She will have BiPAP at bedside, and if the patient does not improve much BiPAP could be used. Chest x-ray was also reviewed, no evidence of significant infiltrate noted on the chest x-ray today. Reevaluated today on 09/08/2016, patient has been intermittently on BiPAP, and at times she is on high flow nasal cannula. She is doing quite well, and basically better than expected. Considering her underlying severe stage of COPD. Electrolytes were reviewed her bicarb level is 44 renal profile is normal. CBC is relatively normal, hemoglobin is 10.7. Reevaluated today on 09/09/2016, patient remains on intermittent BiPAP, and at times on nasal cannula. Overall the patient tolerated extubation over the last few days, and I think it is time to transfer the patient to a medical bed out of the ICU. Her labs were reviewed, CBC is normal. Hemoglobin is 11.8 bicarb is 40, renal profile is normal. No chest x-ray was done today, but previous x- rays showed emphysema, but no evidence of infiltrate. Objective - Vital Signs Vital signs: Vital Signs Temp 98.6 F 09/09/16 08:00 Pulse 92 09/09/16 12:00 Resp 28 H 09/09/16 12:00 BP 140/91 09/09/16 12:00 Pulse Ox 97 09/09/16 12:00 Intake & Output 09/08/16 09/09/16 09/09/16 18:59 06:59 18:59 Intake Total 1135 820 200 Output Total 4704 1005 815 Balance -5855 -1195 -615 Weight 43.7 kg 43.7 kg Intake: IV 560 520 200 Levofloxacin 500Mg-D5w 100 Pmx 500 mg In Dextrose/ Water 1 100ml.bag @ 100 mls/hr IVPB Q24H [facility] Rx#: [id number] Magnesium Sulfate-D5w Pmx 40 1 gm In Dextrose/Water 1 100ml.bag @ 100 mls/hr IVPB Q1H [facility] Rx#: [id number] Sodium Chloride 0.9% 1, 420 520 200 000 ml @ 40 mls/hr IV . Q24H [facility] Rx#:[id number] Intake, IV Titration 100 Amount Magnesium Sulfate-D5w Pmx 100 1 gm In Dextrose/Water 1 100ml.bag @ 100 mls/hr IVPB Q1H [facility] Rx#: [id number] Oral 475 300 Output: Urine 2580 1895 815 Other: Voiding Method Indwelling Catheter Indwelling Catheter Indwelling Catheter - Exam Physical Exam: Revealed a 45-year-old female chronically ill, on mechanical ventilation, appropriate, follows instructions, on CPAP. HEENT:[Neck is supple.] [No neck masses.] [No thyromegaly.] [No JVD.] Chest: [Diminished breath sound bilaterally no rhonchi, no wheezes] Cardiac Exam: [Normal S1 and S2, no S3 gallop, no murmur.] Abdomen: [Soft, nontender, no megaly, no rebound, no guarding, normal bowel sounds.] Extremities: [No clubbing, no edema, no cyanosis.] Neurological Exam: [No focal neurologic deficit.] - Labs CBC & Chem 7: 09/09/16 04:45 09/09/16 04:45 Labs: Abnormal Lab Results - Last 24 Hours (Table) 09/08/16 09/08/16 09/09/16 Range/Units 17:47 20:34 04:45 MCHC 29.4 L (31.0-37.0) g/dL RDW 16.0 H (11.5-15.5) % Plt Count 578 H (150-450) k/uL Lymphocytes # 0.8 L (1.0-4.8) k/uL Chloride (98-107) mmol/L Carbon Dioxide (22-30) mmol/L BUN (7-17) mg/dL Creatinine (0.52-1.04) mg/dL Glucose (74-99) mg/dL POC Glucose (mg/dL) 109 H 156 H (75-99) mg/dL 09/09/16 09/09/16 09/09/16 Range/Units 04:45 06:01 11:37 MCHC (31.0-37.0) g/dL RDW (11.5-15.5) % Plt Count (150-450) k/uL Lymphocytes # (1.0-4.8) k/uL Chloride 97 L (98-107) mmol/L Carbon Dioxide 40 H* (22-30) mmol/L BUN 18 H (7-17) mg/dL Creatinine 0.30 L (0.52-1.04) mg/dL Glucose 175 H (74-99) mg/dL POC Glucose (mg/dL) 147 H 159 H (75-99) mg/dL Assessment and Plan Plan: 1 acute hypercapnic respiratory failure secondary to advanced end-stage COPD with a baseline FEV1 of 27% of predicted. Patient was extubated on 09/07/2016 On 09/05/2016 the patient is intubated on a mechanical ventilator. She is on a volume cycled assist-control mode of ventilation. Blood gases showed improvement acid-base status. Peak airway pressure remains elevated and the patient remains quite bronchospastic and wheezy. She is treated with a chem initial broncho-diet and steroids. She is also on antibiotics. There is improvement since yesterday. On 09/06/2016, patient remains on mechanical ventilation, continues to have significant amount of wheezing and rhonchi noted bilaterally on physical examination, clearly patient is not ready for weaning and extubation at this point. On 09/07/2016, patient was extubated, she will be given initially at trial on high flow nasal cannula, and if not tolerated may consider placing the patient on BiPAP. On 09/08/2016, patient remains off mechanical ventilation, intermittently using BiPAP, and she seems to be doing well and better than expected overall. On 09/09/2016, patient continues to do well, but she is intermittently on BiPAP, hence I will arrange for the patient to transfer out of the ICU today. And will continue to monitor closely while inpatient. 2 acute hypercapnic respiratory failure, status post intubation mechanical ventilation. 3 acute on top of chronic hypercapnic respiratory failure with a component of respiratory acidosis on the blood gas 4 chronic hypoxic respiratory failure with further decompensation in her oxygenation due to COPD exacerbation. 5 chronic steroid dependence 6 cachectic/catabolic state secondary to advanced COPD 7 nicotine addiction/smoking 8 cervical cancer 9 cervical spondylosis and lumbar spine spondylosis 10 peptic ulcer disease 11 remote history of MRSA pneumonia Plan Continue present supportive care measures, continue bronchodilators, antibiotics , patient is on Levaquin, continue steroids, patient will be transferred out of the ICU today. Time with Patient: Less than 30
[2016-09-09] MEDS: SODIUM CHLORIDE 0.9% 1,000 ML IV SCH (16:22)
[2016-09-09 16:52] LABS: Glucose,Whole Blood 130 mg/dL (75-99)
[2016-09-09] MEDS: ASPIRIN 325 MG TAB PO SCH (20:24)
[2016-09-09] MEDS: buPROPion SR 150 MG TABLET.ER PO SCH (20:24)
[2016-09-09] MEDS: traZODone HCL 100 MG TAB PO SCH (20:26)
[2016-09-09] MEDS: risperiDONE 1 MG TAB PO SCH (20:26)
[2016-09-09 20:40] LABS: Glucose,Whole Blood 209 mg/dL (75-99)
--- NOTE | 2016-09-09 23:03 | P.PN ---
Subjective Principal diagnosis: Bacteremia This is a 45-year-old female known to ID service. She has a past medical history for advanced end-stage COPD with FEV1 27% of predicted, chronic hypoxic respiratory failure on home O2 and steroid dependent at 20 mg daily. She also has history of previous MRSA pneumonia. Patient presented to the hospital with complaints of shortness of breath that had been going on for a while but significantly worsening. Her initial chest x-ray showed COPD, pulmonary fibrosis. She had a white count of 20, lactic acid less than 0.5, urinalysis was clear with nitrate and leukoesterase negative. Albumin 3.3. Patient was admitted initially to the selective care unit and started on IV Levaquin as well as DuoNeb treatments, IV Solu-Medrol and inhaled steroids. That afternoon, patient developed lethargy and was obtunded ended up being transferred to the intensive care unit and intubated on September 04. She has been maintained in the intensive care unit she has not required vasopressors. She has been successfully extubated this morning. Repeat chest x-ray this morning reveals no acute pulmonary process. She has been followed by pulmonary medicine. She is currently on BiPAP and pulse ox 97%. Her white count is down to 5.5. Sputum culture is showing strep pneumoniae resistant to azithromycin and erythromycin. Despite the cool solution she's still having a bit of a sore throat. Her shortness of breath is improved. She's had time off of BiPAP. Moved out of the intensive care unit. Objective - Vital Signs Vital signs: Vital Signs Temp 96.9 F L 09/09/16 22:46 Pulse 82 09/09/16 22:46 Resp 22 09/09/16 22:46 BP 134/71 09/09/16 22:46 Pulse Ox 92 L 09/09/16 22:46 Intake & Output 09/09/16 09/09/16 09/10/16 06:59 18:59 06:59 Intake Total 820 760 Output Total 1895 815 350 Balance -1075 -55 -350 Weight 43.7 kg 43.7 kg Intake: IV 520 520 Sodium Chloride 0.9% 1, 520 520 000 ml @ 40 mls/hr IV . Q24H [facility] Rx#:[id number] Oral 300 240 Output: Urine 1895 815 350 Other: Voiding Method Indwelling Catheter Bedside Commode # Voids 2 - Exam Gen: This is a thin 45-year-old female. She is currently on BiPAP and does not appear to be in respiratory distress. She appears comfortable. HEENT: Head is atraumatic, normocephalic. Pupils equal, round. Sclerae is anicteric. White patches on the tongue. NECK: Supple. No JVD. No lymphadenopathy. No thyromegaly. LUNGS: Symmetrical air entry that is diminished. Expiratory wheezes scattered the lung cagle. No balta bronchial sounds or egophony. HEART: Irregular rate and rhythm. No murmur. ABDOMEN: Flat. Soft. Bowel sounds are present. No masses. No tenderness. EXTREMITIES: No pedal edema. No calf tenderness. Dorsalis pedis is strong bilaterally. NEUROLOGICAL: Patient is awake, alert and oriented x3 - Labs CBC & Chem 7: 09/09/16 04:45 09/09/16 04:45 Labs: Abnormal Lab Results - Last 24 Hours (Table) 09/09/16 09/09/16 09/09/16 Range/Units 04:45 04:45 06:01 MCHC 29.4 L (31.0-37.0) g/dL RDW 16.0 H (11.5-15.5) % Plt Count 578 H (150-450) k/uL Lymphocytes # 0.8 L (1.0-4.8) k/uL Chloride 97 L (98-107) mmol/L Carbon Dioxide 40 H* (22-30) mmol/L BUN 18 H (7-17) mg/dL Creatinine 0.30 L (0.52-1.04) mg/dL Glucose 175 H (74-99) mg/dL POC Glucose (mg/dL) 147 H (75-99) mg/dL 09/09/16 09/09/16 09/09/16 Range/Units 11:37 16:50 20:23 MCHC (31.0-37.0) g/dL RDW (11.5-15.5) % Plt Count (150-450) k/uL Lymphocytes # (1.0-4.8) k/uL Chloride (98-107) mmol/L Carbon Dioxide (22-30) mmol/L BUN (7-17) mg/dL Creatinine (0.52-1.04) mg/dL Glucose (74-99) mg/dL POC Glucose (mg/dL) 159 H 130 H 209 H (75-99) mg/dL Laboratory Results WBC 6.5 k/uL (3.8-10.6) 09/09/16 04:45 RBC 4.59 m/uL (3.80-5.40) 09/09/16 04:45 Hgb 11.8 gm/dL (11.4-16.0) 09/09/16 04:45 Hct 40.3 % (34.0-46.0) 09/09/16 04:45 MCV 87.9 fL (80.0-100.0) 09/09/16 04:45 MCH 25.8 pg (25.0-35.0) 09/09/16 04:45 MCHC 29.4 g/dL (31.0-37.0) L 09/09/16 04:45 RDW 16.0 % (11.5-15.5) H 09/09/16 04:45 Plt Count 578 k/uL (150-450) H 09/09/16 04:45 Neutrophils % 82 % 09/09/16 04:45 Neutrophils % (Manual) 61.0 % 09/04/16 02:09 Band Neutrophils % 26.0 % 09/04/16 02:09 Lymphocytes % 12 % 09/09/16 04:45 Lymphocytes % (Manual) 10.0 % 09/04/16 02:09 Monocytes % 4 % 09/09/16 04:45 Monocytes % (Manual) 3.0 % 09/04/16 02:09 Eosinophils % 0 % 09/09/16 04:45 Basophils % 1 % 09/09/16 04:45 Neutrophils # 5.3 k/uL (1.3-7.7) 09/09/16 04:45 Neutrophils # (Manual) 14.2 k/uL (1.3-7.7) H 09/04/16 02:09 Lymphocytes # 0.8 k/uL (1.0-4.8) L 09/09/16 04:45 Lymphocytes # (Manual) 1.6 k/uL (1.0-4.8) 09/04/16 02:09 Monocytes # 0.3 k/uL (0-1.0) 09/09/16 04:45 Monocytes # (Manual) 0.5 k/uL (0-1.0) 09/04/16 02:09 Eosinophils # 0.0 k/uL (0-0.7) 09/09/16 04:45 Basophils # 0.0 k/uL (0-0.2) 09/09/16 04:45 Nucleated RBCs 0 /100 WBC (0-0) 09/04/16 02:09 Manual Slide Review Performed 09/04/16 02:09 Hypochromasia Moderate 09/09/16 04:45 Anisocytosis Slight 09/09/16 04:45 Sample Site LRAD 09/06/16 05:04 ABG pH 7.34 (7.35-7.45) L 09/06/16 05:04 ABG pCO2 68 mmHg (35-45) H 09/06/16 05:04 ABG pO2 97 mmHg (83-108) 09/06/16 05:04 ABG HCO3 35 mmol/L (21-25) H 09/06/16 05:04 ABG Total CO2 37 mmol/L (19-24) H 09/06/16 05:04 ABG O2 Saturation 97.0 % (94-97) 09/06/16 05:04 ABG Base Excess 9.4 mmol/L 09/06/16 05:04 FiO2 45 % 09/06/16 05:04 Sodium 143 mmol/L (137-145) 09/09/16 04:45 Potassium 4.1 mmol/L (3.5-5.1) 09/09/16 04:45 Chloride 97 mmol/L (98-107) L 09/09/16 04:45 Carbon Dioxide 40 mmol/L (22-30) H* 09/09/16 04:45 Anion Gap 6 mmol/L 09/09/16 04:45 BUN 18 mg/dL (7-17) H 09/09/16 04:45 Creatinine 0.30 mg/dL (0.52-1.04) L 09/09/16 04:45 Est GFR (MDRD) Af Amer >60 (>60 ml/min/1.73 sqM) 09/09/16 04:45 Est GFR (MDRD) Non-Af >60 (>60 ml/min/1.73 sqM) 09/09/16 04:45 Glucose 175 mg/dL (74-99) H 09/09/16 04:45 POC Glucose (mg/dL) 209 mg/dL (75-99) H 09/09/16 20:23 POC Glu Judicial Assistant ID Mari Livingston 09/09/16 20:[address] Glu mg/dL 134 mg/dL 09/04/16 05:06 Hemoglobin A1c 6.3 % (4.2-6.1) H 09/04/16 05:06 Plasma Lactic Acid Tmi <0.5 mmol/L (0.7-2.0) L 09/04/16 19:57 Calcium 9.3 mg/dL (8.4-10.2) 09/09/16 04:45 Phosphorus 3.4 mg/dL (2.5-4.5) 09/09/16 04:45 Magnesium 1.9 mg/dL (1.6-2.3) 09/09/16 04:45 Total Bilirubin 0.4 mg/dL (0.2-1.3) 09/04/16 19:57 AST 41 U/L (14-36) H 09/04/16 19:57 ALT 32 U/L (9-52) 09/04/16 19:57 Alkaline Phosphatase 74 U/L (38-126) 09/04/16 19:57 Total Protein 6.4 g/dL (6.3-8.2) 09/04/16 19:57 Albumin 3.3 g/dL (3.5-5.0) L 09/04/16 19:57 Urine Color Light Yellow 09/04/16 19:45 Urine Appearance Clear (Clear) 09/04/16 19:45 Urine pH 6.5 (5.0-8.0) 09/04/16 19:45 Ur Specific [place] 1.007 (1.001-1.035) 09/04/16 19:45 Urine Protein Trace (Negative) H 09/04/16 19:45 Urine Glucose (UA) Negative (Negative) 09/04/16 19:45 Urine Ketones Negative (Negative) 09/04/16 19:45 Urine Blood Negative (Negative) 09/04/16 19:45 Urine Nitrate Negative (Negative) 09/04/16 19:45 Urine Bilirubin Negative (Negative) 09/04/16 19:45 Urine Urobilinogen <2.0 mg/dL (<2.0) 09/04/16 19:45 Ur Leukocyte Esterase Negative (Negative) 09/04/16 19:45 Microbiology 09/04/16 20:30 Sputum Gram Stain - Final 09/04/16 20:30 Sputum Sputum Culture - Final Streptococcus pneumoniae 09/04/16 19:45 Urine,Catheterized Urine Culture - Final Assessment and Plan (1) Acute exacerbation of chronic obstructive airways disease Status: Acute (2) Sepsis due to Streptococcus pneumoniae Narrative/Plan: 45-year-old female with advanced COPD presented to hospital with exacerbation of underlying COPD. Without evidence of bacteremia and sepsis and respiratory failure. She's been treated with BiPAP therapy with improvement. Does feel better today. Cultures show evidence of a septic coccus pneumoniae susceptible to levofloxacin. This will be continued for a total of 10 days at this time. Continue supportive care. She's feeling better today. No other positive cultures. The significant leukocytosis has improved. Status: Acute
[2016-09-10] MEDS: HYDROcodone/APAP 10-325MG 1 EACH TAB PO PRN ×3 (03:55→19:15)
[2016-09-10] MEDS: methylPREDNISolone SOD SUCCI 125 MG/2 ML VIAL IV SCH ×4 (05:36→23:10)
[2016-09-10] MEDS: IPRATROPIUM-ALBUTEROL 3 ML NEB INHALATION PRN (06:04)
[2016-09-10 07:34] LABS: Glucose,Whole Blood 122 mg/dL (75-99)
[2016-09-10] MEDS: INSULIN LISPRO (humaLOG) 300 UNIT/3 ML VIAL SQ SCH ×4 (08:09→21:00)
[2016-09-10] MEDS: ALPRAZolam 0.25 MG TAB PO PRN ×2 (08:10→17:44)
[2016-09-10] MEDS: THEOPHYLLINE 24 HOUR 300 MG CAP.ER.24H PO SCH ×2 (08:24→21:03)
[2016-09-10] MEDS: HEPARIN SODIUM,PORCINE 5,000 UNIT/ML 1 ML VIAL SQ SCH ×3 (08:25→23:10)
[2016-09-10] MEDS: NYSTATIN 100,000 UNIT/ML SUSP 500,000 UNIT/5 ML CUP PO SCH ×4 (08:25→21:04)
[2016-09-10] MEDS: LEVOFLOXACIN 500 MG TAB PO SCH (08:26)
[2016-09-10] MEDS: PANTOPRAZOLE 40 MG TABLET PO SCH (08:26)
[2016-09-10] MEDS: IPRATROPIUM-ALBUTEROL 3 ML NEB INHALATION SCH ×4 (09:12→20:04)
[2016-09-10] MEDS: FORMOTEROL FUMARATE 20 MCG/2 ML NEBU INHALATION SCH ×2 (09:12→20:04)
[2016-09-10] MEDS: BUDESONIDE 0.5 MG/2 ML NEBU INHALATION SCH ×2 (09:12→20:04)
[2016-09-10 11:24] LABS: Glucose,Whole Blood 140 mg/dL (75-99)
--- NOTE | 2016-09-10 13:07 | P.PN ---
Subjective This is a very pleasant 45-year-old female patient with advanced end-stage COPD who has had multiple hospitalization for COPD exacerbation. In the past year of 2016, the patient had at least 6 hospitalization last one being in June 2016. She unfortunately continues to smoke cigarettes. She is oxygen dependent. She is also steroid dependent and she's been taking 20 mg of prednisone a daily basis. The patient has been noncompliant to smoking . She has been maintained on a combination of Spiriva and Symbicort on outpatient basis in addition to her daily prednisone. Her baseline FEV1 is around 27% of predicted. She has chronic hypoxic respiratory failure. She has had previous MRSA pneumonia. She presented here on 09/04/2016 with complaints of increasing shortness of breath cough and congestion. She did go on to develop ventilatory dependent respiratory failure was in the intensive care unit for several days. She was successfully extubated. She is seen again today 09/10/2016 in follow-up. She is on the regular medical floor. She is awake and alert in no acute distress. Earlier this morning she attempted to get herself out of bed and into the chair and slid to the floor but denying any acute injury. She states she is surprised how weak she was. She is again encouraged to use the call light and waiting for assistance. She does deny any worsening shortness of breath, cough or congestion. She still is quite dyspneic on minimal exertion. She continues to wheeze. Her sputum was positive for Streptococcus pneumoniae. She remains on Levaquin. Objective - Vital Signs Vital signs: Vital Signs Temp 98.5 F 09/10/16 12:17 Pulse 90 09/10/16 12:48 Resp 18 09/10/16 12:17 BP 135/83 09/10/16 12:17 Pulse Ox 93 L 09/10/16 12:17 Intake & Output 09/09/16 09/10/16 09/10/16 18:59 06:59 18:59 Intake Total 760 460 200 Output Total 815 350 Balance -55 110 200 Weight 43.7 kg 45.5 kg Intake: IV 520 460 200 Levofloxacin 500Mg-D5w 200 Pmx 500 mg In Dextrose/ Water 1 100ml.bag @ 100 mls/hr IVPB Q24H [facility] Rx#: [id number] Sodium Chloride 0.9% 1, 520 460 000 ml @ 40 mls/hr IV . Q24H [facility] Rx#:[id number] Oral 240 Output: Urine 815 350 Other: Voiding Method Bedside Commode Bedside Commode Bedside Commode # Voids 1 # Bowel Movements 1 - Exam GENERAL EXAM: Cachectic. Appears older than stated age. Alert, in no apparent distress. HEAD: Normocephalic. EYES: Normal reaction of pupils, equal size. NOSE: Clear with pink turbinates. THROAT: No erythema or exudates. NECK: No masses, no JVD. CHEST: No chest wall deformity. LUNGS: Equal air entry with bilateral wheeze, diminished throughout.. CVS: S1 and S2 normal with no audible murmurs, regular rhythm. ABDOMEN: No hepatosplenomegaly, normal bowel sounds, no guarding or rigidity. CENTRAL NERVOUS SYSTEM: No focal deficits, tone is normal in all 4 extremities. Extremities: There is no peripheral edema. No clubbing, no cyanosis. Peripheral pulses are intact. - Labs CBC & Chem 7: 09/09/16 04:45 09/09/16 04:45 Labs: Abnormal Lab Results - Last 24 Hours (Table) 09/09/16 09/09/16 09/10/16 Range/Units 16:50 20:23 07:18 POC Glucose (mg/dL) 130 H 209 H 122 H (75-99) mg/dL 09/10/16 Range/Units 11:22 POC Glucose (mg/dL) 140 H (75-99) mg/dL Assessment and Plan Plan: Impression: #1 Acute on chronic hypercapnic respiratory failure secondary to advanced end- stage COPD with a baseline FEV1 value of 27% of predicted as well as a Streptococcus pneumoniae infection. At one point was ventilatory dependent and extubated on 09/07/2016. #2 Acute on chronic hypoxic respiratory failure secondary to above. #3 Acute exacerbation of chronic Gold stage IV obstructive pulmonary disease in a patient who is both oxygen and steroid dependent. #4 Chronic and ongoing tobacco dependence. #5 Cachectic/catabolic state secondary to advanced COPD. #6 History of cervical cancer. #7 Cervical spondylosis with lumbar spine spondylosis. #8 Peptic ulcer disease. #Remote history of MRSA pneumonia. Plan: The patient was seen and evaluated by Dr. Trujillo. She is improving daily but quite slow to progress. We'll continue with her current antibiotics, IV Solu- Medrol, bronchodilators. She is again educated regarding the importance of complete smoking cessation. She is also again educated regarding the use of her call light and to use caution not to be out of bed with about assistance until her strength returns.
[2016-09-10] MEDS ORDERED: HYDROmorphone 1 MG/ML 1 ML SYRINGE IVP STA (13:33)
[2016-09-10] MEDS: SODIUM CHLORIDE 0.9% 1,000 ML IV SCH (16:16)
[2016-09-10 17:15] LABS: Glucose,Whole Blood 150 mg/dL (75-99)
[2016-09-10 20:42] LABS: Glucose,Whole Blood 127 mg/dL (75-99)
[2016-09-10] MEDS: ASPIRIN 325 MG TAB PO SCH (20:58)
[2016-09-10] MEDS: buPROPion SR 150 MG TABLET.ER PO SCH (20:59)
[2016-09-10] MEDS: risperiDONE 1 MG TAB PO SCH (21:01)
[2016-09-10] MEDS: traZODone HCL 100 MG TAB PO SCH (21:04)
--- NOTE | 2016-09-10 21:33 | PN ---
DATE OF SERVICE: 09/10/2016 I am covering for Dr. Italo John. This 45-year-old woman was admitted with COPD exacerbation, acute respiratory failure and was on mechanical ventilation. The patient is extubated. The patient is being transferred to the Med-Surg floor. At this time patient is complaining of significant pain. Patient also complains of generalized tiredness and weakness. The patient had hypoxia, hypercarbic respiratory failure. The patient also had a chronic steroid dependence. Patient also history of previous severe malnutrition with a BMI of 19.6. Dr. Trujillo is following the patient closely. PAST MEDICAL HISTORY: Reviewed. REVIEW OF SYSTEMS: CARDIOVASCULAR: As mentioned earlier. RESPIRATORY: As mentioned earlier. GI: No nausea.. : No dysuria. NERVOUS: No numbness or weakness. ALLERGY/IMMUNOLOGY: No asthma or hay fever. MUSCULOSKELETAL: As mentioned earlier. Medications are reviewed and include: 1. [place] 10 mg every 6 hours p.r.n. 2. DuoNeb q.i.d. and p.r.n. 3. Xanax 0.25 t.i.d. 5. Aspirin 325 mg daily. 6. Pulmicort 0.5 b.i.d. 7. Albuterol. 9. Heparin 5 subcu q.h.s. 10. Humalog to scale. 11. Levaquin 500 mg daily. 12. Solu-Medrol 60 IV every 6 hours. 13. Narcan. 14. Mycostatin. 15. Risperdal 3 mg p.o. q.h.s. 16. Requip 0.5 mg q.h.s. 17. Akhil-24 300 mg p.o. b.i.d. 18. Desyrel 300 mg p.o. at bedtime. PHYSICAL EXAM: The patient is alert and oriented x3. Pulse 90, blood pressure is 137/88, respirations 18, temperature 99.2, pulse ox 96% on 6L. HEENT: Conjunctivae normal. Oral mucosa moist. Neck is no jugular venous distension. No carotid bruits. No lymph node enlargement. CARDIOVASCULAR: S1 and S2 muffled. No S3. No S4. RESPIRATORY: Breath sounds diminished in the bases. Breathing efforts are markedly increased. Bilateral scattered rhonchi and expiratory wheezing and crackles. Abdomen is soft, nontender. No mass palpable. LEGS: No edema. NERVOUS SYSTEM: Higher function as mentioned earlier. Moves all 4 limbs. No focal motor or sensory deficits. LYMPHATIC: No lymph nodes palpable in neck or axillae. SKIN: No ulcer, rash or bleeding. LABS: Glucose 120 to 140, 150. Otherwise. Otherwise, CBC within normal limits. Sodium 143 potassium 4.1. CO2 is 40. ASSESSMENT: 1. Chronic obstructive pulmonary disease, acute exacerbation, with acute hypoxic hypercarbic respiratory failure, status post mechanical ventilation. 2. Change in mental status, metabolic encephalopathy secondary to hypercarbia. 3. History of nicotine dependence. 4. Anxiety. 5. Chest pain, possibly musculoskeletal. 6. Acute respiratory acidosis. 7. Remote history of protein-calorie malnutrition secondary to advanced chronic obstructive pulmonary disease with body mass index of 19.6. 8. History of cervical cancer. 9. Streptococcus pneumoniae with tracheobronchitis and sepsis. 10. Chronic steroid dependence. 11. Peptic ulcer disease. 12. Remote history of methicillin-resistant Staphylococcus aureus pneumonia. 13. Cervical spondylosis. RECOMMENDATIONS AND DISCUSSION: In this 45-year-old woman who presented with multiple complex medical issues, will monitor the patient closely. Continue with the current medications, continue symptomatic treatment. Continue with antibiotics. Continue with the bronchodilators. Continue with the IV steroids and closely follow with Dr. Trujillo. Other than that, I would recommend repeat labs, PT, OT evaluation and Social Work consultation for the possibility of any ECF rehab at this time. Other than that, the prognosis is extremely guarded and further recommendations to follow. TRACIED
--- NOTE | 2016-09-11 | P.PN ---
Subjective Principal diagnosis: Bacteremia This is a 45-year-old female known to ID service. She has a past medical history for advanced end-stage COPD with FEV1 27% of predicted, chronic hypoxic respiratory failure on home O2 and steroid dependent at 20 mg daily. She also has history of previous MRSA pneumonia. Patient presented to the hospital with complaints of shortness of breath that had been going on for a while but significantly worsening. Her initial chest x-ray showed COPD, pulmonary fibrosis. She had a white count of 20, lactic acid less than 0.5, urinalysis was clear with nitrate and leukoesterase negative. Albumin 3.3. Patient was admitted initially to the selective care unit and started on IV Levaquin as well as DuoNeb treatments, IV Solu-Medrol and inhaled steroids. That afternoon, patient developed lethargy and was obtunded ended up being transferred to the intensive care unit and intubated on September 04. She has been maintained in the intensive care unit she has not required vasopressors. She has been successfully extubated this morning. Repeat chest x-ray this morning reveals no acute pulmonary process. She has been followed by pulmonary medicine. She is currently on BiPAP and pulse ox 97%. Her white count is down to 5.5. Sputum culture is showing strep pneumoniae resistant to azithromycin and erythromycin. Despite the cool solution she's still having a bit of a sore throat. Her shortness of breath is improved. She's had time off of BiPAP. remains out of the intensive care unit Objective - Vital Signs Vital signs: Vital Signs Temp 98.3 F 09/10/16 22:53 Pulse 95 09/10/16 22:53 Resp 16 09/10/16 22:53 BP 137/73 09/10/16 19:30 Pulse Ox 92 L 09/10/16 22:53 Intake & Output 09/10/16 09/10/16 09/11/16 06:59 18:59 06:59 Intake Total 460 200 Output Total 350 200 Balance 110 0 Weight 45.5 kg Intake: IV 460 200 Levofloxacin 500Mg-D5w 200 Pmx 500 mg In Dextrose/ Water 1 100ml.bag @ 100 mls/hr IVPB Q24H [facility] Rx#: [id number] Sodium Chloride 0.9% 1, 460 000 ml @ 40 mls/hr IV . Q24H [facility] Rx#:[id number] Output: Urine 350 200 Other: Voiding Method Bedside Commode Bedside Commode # Voids 1 2 1 # Bowel Movements 1 - Exam Gen: This is a thin 45-year-old female. She is currently on BiPAP and does not appear to be in respiratory distress. She appears comfortable. HEENT: Head is atraumatic, normocephalic. Pupils equal, round. Sclerae is anicteric. White patches on the tongue. NECK: Supple. No JVD. No lymphadenopathy. No thyromegaly. LUNGS: Symmetrical air entry that is diminished. Expiratory wheezes scattered the lung cagle. No balta bronchial sounds or egophony. HEART: Irregular rate and rhythm. No murmur. ABDOMEN: Flat. Soft. Bowel sounds are present. No masses. No tenderness. EXTREMITIES: No pedal edema. No calf tenderness. Dorsalis pedis is strong bilaterally. NEUROLOGICAL: Patient is awake, alert and oriented x3 - Labs CBC & Chem 7: 09/09/16 04:45 09/09/16 04:45 Labs: Abnormal Lab Results - Last 24 Hours (Table) 09/10/16 09/10/16 09/10/16 Range/Units 07:18 11:22 17:13 POC Glucose (mg/dL) 122 H 140 H 150 H (75-99) mg/dL 09/10/16 Range/Units 20:26 POC Glucose (mg/dL) 127 H (75-99) mg/dL Laboratory Results WBC 6.5 k/uL (3.8-10.6) 09/09/16 04:45 RBC 4.59 m/uL (3.80-5.40) 09/09/16 04:45 Hgb 11.8 gm/dL (11.4-16.0) 09/09/16 04:45 Hct 40.3 % (34.0-46.0) 09/09/16 04:45 MCV 87.9 fL (80.0-100.0) 09/09/16 04:45 MCH 25.8 pg (25.0-35.0) 09/09/16 04:45 MCHC 29.4 g/dL (31.0-37.0) L 09/09/16 04:45 RDW 16.0 % (11.5-15.5) H 09/09/16 04:45 Plt Count 578 k/uL (150-450) H 09/09/16 04:45 Neutrophils % 82 % 09/09/16 04:45 Neutrophils % (Manual) 61.0 % 09/04/16 02:09 Band Neutrophils % 26.0 % 09/04/16 02:09 Lymphocytes % 12 % 09/09/16 04:45 Lymphocytes % (Manual) 10.0 % 09/04/16 02:09 Monocytes % 4 % 09/09/16 04:45 Monocytes % (Manual) 3.0 % 09/04/16 02:09 Eosinophils % 0 % 09/09/16 04:45 Basophils % 1 % 09/09/16 04:45 Neutrophils # 5.3 k/uL (1.3-7.7) 09/09/16 04:45 Neutrophils # (Manual) 14.2 k/uL (1.3-7.7) H 09/04/16 02:09 Lymphocytes # 0.8 k/uL (1.0-4.8) L 09/09/16 04:45 Lymphocytes # (Manual) 1.6 k/uL (1.0-4.8) 09/04/16 02:09 Monocytes # 0.3 k/uL (0-1.0) 09/09/16 04:45 Monocytes # (Manual) 0.5 k/uL (0-1.0) 09/04/16 02:09 Eosinophils # 0.0 k/uL (0-0.7) 09/09/16 04:45 Basophils # 0.0 k/uL (0-0.2) 09/09/16 04:45 Nucleated RBCs 0 /100 WBC (0-0) 09/04/16 02:09 Manual Slide Review Performed 09/04/16 02:09 Hypochromasia Moderate 09/09/16 04:45 Anisocytosis Slight 09/09/16 04:45 Sample Site LRAD 09/06/16 05:04 ABG pH 7.34 (7.35-7.45) L 09/06/16 05:04 ABG pCO2 68 mmHg (35-45) H 09/06/16 05:04 ABG pO2 97 mmHg (83-108) 09/06/16 05:04 ABG HCO3 35 mmol/L (21-25) H 09/06/16 05:04 ABG Total CO2 37 mmol/L (19-24) H 09/06/16 05:04 ABG O2 Saturation 97.0 % (94-97) 09/06/16 05:04 ABG Base Excess 9.4 mmol/L 09/06/16 05:04 FiO2 45 % 09/06/16 05:04 Sodium 143 mmol/L (137-145) 09/09/16 04:45 Potassium 4.1 mmol/L (3.5-5.1) 09/09/16 04:45 Chloride 97 mmol/L (98-107) L 09/09/16 04:45 Carbon Dioxide 40 mmol/L (22-30) H* 09/09/16 04:45 Anion Gap 6 mmol/L 09/09/16 04:45 BUN 18 mg/dL (7-17) H 09/09/16 04:45 Creatinine 0.30 mg/dL (0.52-1.04) L 09/09/16 04:45 Est GFR (MDRD) Af Amer >60 (>60 ml/min/1.73 sqM) 09/09/16 04:45 Est GFR (MDRD) Non-Af >60 (>60 ml/min/1.73 sqM) 09/09/16 04:45 Glucose 175 mg/dL (74-99) H 09/09/16 04:45 POC Glucose (mg/dL) 127 mg/dL (75-99) H 09/10/16 20:26 POC Glu [employer] Migdalia Bran 09/10/16 20:[address] Glu mg/dL 134 mg/dL 09/04/16 05:06 Hemoglobin A1c 6.3 % (4.2-6.1) H 09/04/16 05:06 Plasma Lactic Acid Tim <0.5 mmol/L (0.7-2.0) L 09/04/16 19:57 Calcium 9.3 mg/dL (8.4-10.2) 09/09/16 04:45 Phosphorus 3.4 mg/dL (2.5-4.5) 09/09/16 04:45 Magnesium 1.9 mg/dL (1.6-2.3) 09/09/16 04:45 Total Bilirubin 0.4 mg/dL (0.2-1.3) 09/04/16 19:57 AST 41 U/L (14-36) H 09/04/16 19:57 ALT 32 U/L (9-52) 09/04/16 19:57 Alkaline Phosphatase 74 U/L (38-126) 09/04/16 19:57 Total Protein 6.4 g/dL (6.3-8.2) 09/04/16 19:57 Albumin 3.3 g/dL (3.5-5.0) L 09/04/16 19:57 Urine Color Light Yellow 09/04/16 19:45 Urine Appearance Clear (Clear) 09/04/16 19:45 Urine pH 6.5 (5.0-8.0) 09/04/16 19:45 Ur Specific [place] 1.007 (1.001-1.035) 09/04/16 19:45 Urine Protein Trace (Negative) H 09/04/16 19:45 Urine Glucose (UA) Negative (Negative) 09/04/16 19:45 Urine Ketones Negative (Negative) 09/04/16 19:45 Urine Blood Negative (Negative) 09/04/16 19:45 Urine Nitrate Negative (Negative) 09/04/16 19:45 Urine Bilirubin Negative (Negative) 09/04/16 19:45 Urine Urobilinogen <2.0 mg/dL (<2.0) 09/04/16 19:45 Ur Leukocyte Esterase Negative (Negative) 09/04/16 19:45 Microbiology 09/04/16 20:30 Sputum Gram Stain - Final 09/04/16 20:30 Sputum Sputum Culture - Final Streptococcus pneumoniae 09/04/16 19:45 Urine,Catheterized Urine Culture - Final Assessment and Plan (1) Acute exacerbation of chronic obstructive airways disease Status: Acute (2) Sepsis due to Streptococcus pneumoniae Narrative/Plan: 45-year-old female with advanced COPD presented to hospital with exacerbation of underlying COPD. Without evidence of bacteremia and sepsis and respiratory failure. She's been treated with BiPAP therapy with improvement. Does feel better today. Cultures show evidence of a strptococcus pneumoniae susceptible to levofloxacin. This will be continued for a total of 10 days at this time. Continue supportive care. She's feeling better today. No other positive cultures. The significant leukocytosis has improved. Status: Acute
[2016-09-11] MEDS: HYDROcodone/APAP 10-325MG 1 EACH TAB PO PRN ×2 (00:28→08:04)
[2016-09-11] MEDS: methylPREDNISolone SOD SUCCI 125 MG/2 ML VIAL IV SCH ×4 (05:24→23:32)
[2016-09-11] MEDS: IPRATROPIUM-ALBUTEROL 3 ML NEB INHALATION PRN (05:35)
[2016-09-11 08:13] LABS: Glucose,Whole Blood 119 mg/dL (75-99)
[2016-09-11 08:26] LABS: Anion Gap 8 mmol/L; Blood Urea Nitrogen 26 mg/dL (7-17); Calcium 9.4 mg/dL (8.4-10.2); Carbon Dioxide 30 mmol/L (22-30); Chloride 100 mmol/L (98-107); Glucose 125 mg/dL (74-99); Non-African American GFR(MDRD) >60 (>60 ml/min/1.73 sqM); Sodium 138 mmol/L (137-145)
[2016-09-11 08:27] LABS: Anisocytosis Slight; Basophils # (A) 0.1 k/uL (0-0.2); Basophils % (A) 1 %; CH 26.8; CHCM 29.5; Eosinophils % (A) 0 %; HCT 42.4 % (34.0-46.0); HDW 2.97; HGB 12.5 gm/dL (11.4-16.0); Hypochromasia Marked; Luc # (Auto) 0.09; Luc % (Auto) 1; Lymphocytes # (A) 0.6 k/uL (1.0-4.8); Lymphocytes % (A) 6 %; MCH 26.9 pg (25.0-35.0); MCHC 29.4 g/dL (31.0-37.0); MCV 91.5 fL (80.0-100.0); Mean Platelet Volume 7.8; Monocytes # (A) 0.4 k/uL (0-1.0); Monocytes % (A) 4 %; Neutrophils # (A) 9.4 k/uL (1.3-7.7); Neutrophils % (A) 89 %; RBC 4.64 m/uL (3.80-5.40); RDW 16.3 % (11.5-15.5); WBC 10.6 k/uL (3.8-10.6); WBC (Perox) 10.53
[2016-09-11] MEDS: FORMOTEROL FUMARATE 20 MCG/2 ML NEBU INHALATION SCH ×2 (08:48→19:40)
[2016-09-11] MEDS: BUDESONIDE 0.5 MG/2 ML NEBU INHALATION SCH ×2 (08:48→19:40)
[2016-09-11] MEDS: IPRATROPIUM-ALBUTEROL 3 ML NEB INHALATION SCH ×4 (08:48→19:40)
[2016-09-11] MEDS: HEPARIN SODIUM,PORCINE 5,000 UNIT/ML 1 ML VIAL SQ SCH ×3 (09:24→23:32)
[2016-09-11] MEDS: INSULIN LISPRO (humaLOG) 300 UNIT/3 ML VIAL SQ SCH ×4 (09:24→20:50)
[2016-09-11] MEDS: NYSTATIN 100,000 UNIT/ML SUSP 500,000 UNIT/5 ML CUP PO SCH ×4 (09:24→20:31)
[2016-09-11] MEDS: PANTOPRAZOLE 40 MG TABLET PO SCH (09:24)
[2016-09-11] MEDS: LEVOFLOXACIN 500 MG TAB PO SCH (09:25)
[2016-09-11] MEDS: THEOPHYLLINE 24 HOUR 300 MG CAP.ER.24H PO SCH ×2 (09:25→20:31)
[2016-09-11 11:50] LABS: Glucose,Whole Blood 90 mg/dL (75-99)
--- NOTE | 2016-09-11 12:45 | P.PN ---
Subjective This is a very pleasant 45-year-old female patient with advanced end-stage COPD who has had multiple hospitalization for COPD exacerbation. In the past year of 2016, the patient had at least 6 hospitalization last one being in June 2016. She unfortunately continues to smoke cigarettes. She is oxygen dependent. She is also steroid dependent and she's been taking 20 mg of prednisone a daily basis. The patient has been noncompliant to smoking . She has been maintained on a combination of Spiriva and Symbicort on outpatient basis in addition to her daily prednisone. Her baseline FEV1 is around 27% of predicted. She has chronic hypoxic respiratory failure. She has had previous MRSA pneumonia. She presented here on 09/04/2016 with complaints of increasing shortness of breath cough and congestion. She did go on to develop ventilatory dependent respiratory failure was in the intensive care unit for several days. She was successfully extubated. Sputum cultures positive for Streptococcus pneumoniae She is seen together today 09/11/2016 in follow-up. She is more awake and alert. She is utilizing the BiPAP intermittently. She is still requiring 5 L/ m per nasal cannula to maintain O2 saturations in the low 90s. She denies any worsening shortness of breath, cough or congestion. She is still not quite back to her baseline. Objective - Vital Signs Vital signs: Vital Signs Temp 97.7 F 09/11/16 07:00 Pulse 100 09/11/16 11:20 Resp 18 09/11/16 07:00 BP 127/91 09/11/16 07:00 Pulse Ox 92 L 09/11/16 07:00 Intake & Output 09/10/16 09/11/16 09/11/16 18:59 06:59 18:59 Intake Total 200 240 Output Total 200 Balance 0 240 Weight 43 kg Intake: IV 200 Levofloxacin 500Mg-D5w 200 Pmx 500 mg In Dextrose/ Water 1 100ml.bag @ 100 mls/hr IVPB Q24H [facility] Rx#: [id number] Oral 240 Output: Urine 200 Other: Voiding Method Bedside Commode Bedside Commode # Voids 2 1 - Exam GENERAL EXAM: Cachectic. Appears older than stated age. Alert, in no apparent distress. HEAD: Normocephalic. EYES: Normal reaction of pupils, equal size. NOSE: Clear with pink turbinates. THROAT: No erythema or exudates. NECK: No masses, no JVD. CHEST: No chest wall deformity. LUNGS: Equal air entry with bilateral wheeze, diminished throughout.. CVS: S1 and S2 normal with no audible murmurs, regular rhythm. ABDOMEN: No hepatosplenomegaly, normal bowel sounds, no guarding or rigidity. CENTRAL NERVOUS SYSTEM: No focal deficits, tone is normal in all 4 extremities. Extremities: There is no peripheral edema. No clubbing, no cyanosis. Peripheral pulses are intact. - Labs CBC & Chem 7: 09/11/16 07:30 09/11/16 07:30 Labs: Abnormal Lab Results - Last 24 Hours (Table) 09/10/16 09/10/16 09/11/16 Range/Units 17:13 20:26 07:30 MCHC 29.4 L (31.0-37.0) g/dL RDW 16.3 H (11.5-15.5) % Plt Count 585 H (150-450) k/uL Neutrophils # 9.4 H (1.3-7.7) k/uL Lymphocytes # 0.6 L (1.0-4.8) k/uL BUN (7-17) mg/dL Creatinine (0.52-1.04) mg/dL Glucose (74-99) mg/dL POC Glucose (mg/dL) 150 H 127 H (75-99) mg/dL 09/11/16 09/11/16 Range/Units 07:30 07:39 MCHC (31.0-37.0) g/dL RDW (11.5-15.5) % Plt Count (150-450) k/uL Neutrophils # (1.3-7.7) k/uL Lymphocytes # (1.0-4.8) k/uL BUN 26 H (7-17) mg/dL Creatinine 0.31 L (0.52-1.04) mg/dL Glucose 125 H (74-99) mg/dL POC Glucose (mg/dL) 119 H (75-99) mg/dL Assessment and Plan Plan: Impression: #1 Acute on chronic hypercapnic respiratory failure secondary to advanced end- stage COPD with a baseline FEV1 value of 27% of predicted as well as a Streptococcus pneumoniae infection. At one point was ventilatory dependent and extubated on 09/07/2016. #2 Acute on chronic hypoxic respiratory failure secondary to above. #3 Acute exacerbation of chronic Gold stage IV obstructive pulmonary disease in a patient who is both oxygen and steroid dependent. #4 Chronic and ongoing tobacco dependence. #5 Cachectic/catabolic state secondary to advanced COPD. #6 History of cervical cancer. #7 Cervical spondylosis with lumbar spine spondylosis. #8 Peptic ulcer disease. #Remote history of MRSA pneumonia. Plan: The patient was seen and evaluated by Dr. Trujillo. She is improving daily but quite slow to progress. We'll continue with her current antibiotics, IV Solu- Medrol, bronchodilators. She is again educated regarding the importance of complete smoking cessation. We will increase her activity as tolerated. Possible discharge in the next 48 hours. We'll continue to follow.
[2016-09-11] MEDS ORDERED: LORazepam 2 MG/ML SYRINGE IV PRN (14:16)
[2016-09-11] MEDS: HYDROmorphone 1 MG/ML 1 ML SYRINGE IVP PRN (14:20)
[2016-09-11 17:03] LABS: Glucose,Whole Blood 121 mg/dL (75-99)
[2016-09-11] MEDS: SODIUM CHLORIDE 0.9% 1,000 ML IV SCH (17:39)
[2016-09-11] MEDS: ASPIRIN 325 MG TAB PO SCH (20:30)
[2016-09-11] MEDS: buPROPion SR 150 MG TABLET.ER PO SCH (20:31)
[2016-09-11] MEDS: traZODone HCL 100 MG TAB PO SCH (20:32)
[2016-09-11] MEDS: risperiDONE 1 MG TAB PO SCH (20:32)
[2016-09-11 20:48] LABS: Glucose,Whole Blood 163 mg/dL (75-99)
--- NOTE | 2016-09-11 22:03 | PN ---
DATE OF SERVICE: 09/11/2016 I am covering for Dr. Italo John. This 45-year-old woman was admitted with COPD exacerbation, also had acute respiratory failure. The patient is on BiPAP. The patient is complaining of significant pain which is acute and chronic in nature. Multiple consultants are following the patient closely. Cultures are showing Strep. Sputum is also showing Strep pneumonia which is penicillin sensitive. PAST MEDICAL HISTORY: Reviewed. REVIEW OF SYSTEMS: CARDIOVASCULAR: No angina or palpitations. RESPIRATORY: As stated. Medications reviewed and include: 1. DuoNeb b.i.d. and p.r.n. 2. Xanax 0.5 t.i.d. 3. Aspirin 325 mg daily. 4. Pulmicort 0.5 b.i.d. 5. Wellbutrin. 6. Heparin. 7. Dilaudid. 8. Humalog. 9. Levaquin. 10. Ativan. 11. Solumedrol. 12. Narcan. 13. Mycostatin. 14. Protonix. 15. Requip. 16. Theophylline. 17. Desyrel. PHYSICAL EXAM: GENERAL: The patient is alert, oriented x3. VITAL SIGNS: Pulse 97, blood pressure 127/85, respirations 20, temperature 99, pulse ox 99% nasal cannula. HEENT: Conjunctivae normal. NECK: No JVD. CARDIOVASCULAR: S1 and S2 muffled. LUNGS: Breath sounds are decreased at the bases. Bilateral scattered rhonchi and crackles. Expiratory wheezes. ABDOMEN: Soft, nontender. NERVOUS SYSTEM: No focal deficits. LABS: CBC noted. Platelets 585. Accu-Cheks elevated. ASSESSMENT: 1. Chronic obstructive pulmonary disease acute exacerbation with acute hypoxic respiratory failure status post mechanical ventilation. 2. Acute purulent tracheobronchitis with possible sepsis. 3. Right middle lung pneumonia secondary to Strep pneumonia. 4. Change in mental status, metabolic encephalopathy secondary to hypercarbia on BiPAP on and off. 5. Acute on chronic pain syndrome. 6. Nicotine dependence. 7. Anxiety. 8. Chest pain, possibly musculoskeletal. 9. Acute respiratory acidosis. 10. History of and severe malnutrition secondary to advanced chronic obstructive pulmonary disease with body mass index of 18.5. 11. History of cervical cancer. 12. Chronic steroid dependence. 13. Peptic ulcer disease history. 14. Remote history of MRSA. 15. Cervical spondylosis. 16. FULL CODE. 17. Severe protein calorie malnutrition with a BMI of 18.5. RECOMMENDATIONS: This 45-year-old woman presented with multiple complex medical issues. We will monitor the patient closely, continue current medications and symptomatic treatment. Otherwise at this point in time would continue with bronchodilators, continue with empiric antibiotics, closely follow with pulmonary. Supplement nutrition. Guarded prognosis. Further recommendations to follow. See orders for details. MTDD
[2016-09-12] MEDS: HYDROmorphone 1 MG/ML 1 ML SYRINGE IVP PRN ×2 (02:50→14:49)
[2016-09-12] MEDS: methylPREDNISolone SOD SUCCI 125 MG/2 ML VIAL IV SCH (05:57)
[2016-09-12] MEDS: IPRATROPIUM-ALBUTEROL 3 ML NEB INHALATION SCH ×4 (05:58→18:53)
[2016-09-12 07:47] LABS: Anisocytosis Slight; Basophils % (A) 0 %; CH 26.8; CHCM 31.3; Eosinophils % (A) 0 %; HCT 39.9 % (34.0-46.0); HDW 3.12; HGB 12.4 gm/dL (11.4-16.0); Hypochromasia Moderate; Luc # (Auto) 0.11; Luc % (Auto) 1; Lymphocytes # (A) 1.1 k/uL (1.0-4.8); Lymphocytes % (A) 12 %; MCH 26.6 pg (25.0-35.0); Mean Platelet Volume 6.9; Monocytes # (A) 0.4 k/uL (0-1.0); Monocytes % (A) 5 %; Neutrophils # (A) 7.9 k/uL (1.3-7.7); Neutrophils % (A) 82 %; RBC 4.64 m/uL (3.80-5.40); RDW 16.2 % (11.5-15.5); WBC 9.6 k/uL (3.8-10.6); WBC (Perox) 9.81
[2016-09-12 07:48] LABS: MCV 85.9 fL (80.0-100.0)
[2016-09-12 07:56] LABS: Anion Gap 7 mmol/L; Blood Urea Nitrogen 30 mg/dL (7-17); Calcium 9.7 mg/dL (8.4-10.2); Carbon Dioxide 32 mmol/L (22-30); Chloride 99 mmol/L (98-107); Glucose 107 mg/dL (74-99); Non-African American GFR(MDRD) >60 (>60 ml/min/1.73 sqM); Sodium 138 mmol/L (137-145)
[2016-09-12 08:00] LABS: Glucose,Whole Blood 99 mg/dL (75-99)
[2016-09-12] MEDS: FORMOTEROL FUMARATE 20 MCG/2 ML NEBU INHALATION SCH ×2 (09:10→18:54)
[2016-09-12] MEDS: BUDESONIDE 0.5 MG/2 ML NEBU INHALATION SCH ×2 (09:10→18:54)
[2016-09-12] MEDS: INSULIN LISPRO (humaLOG) 300 UNIT/3 ML VIAL SQ SCH ×4 (09:18→20:36)
[2016-09-12] MEDS: PANTOPRAZOLE 40 MG TABLET PO SCH (09:19)
[2016-09-12] MEDS: LEVOFLOXACIN 500 MG TAB PO SCH (09:19)
[2016-09-12] MEDS: HEPARIN SODIUM,PORCINE 5,000 UNIT/ML 1 ML VIAL SQ SCH ×3 (09:19→23:26)
[2016-09-12] MEDS: THEOPHYLLINE 24 HOUR 300 MG CAP.ER.24H PO SCH ×2 (09:20→20:36)
[2016-09-12] MEDS: NYSTATIN 100,000 UNIT/ML SUSP 500,000 UNIT/5 ML CUP PO SCH ×4 (09:20→20:37)
[2016-09-12] MEDS: MULTIVITAMINS, THERA 1 EACH TAB PO SCH (09:20)
[2016-09-12 12:14] LABS: Glucose,Whole Blood 113 mg/dL (75-99)
[2016-09-12 12:21] LABS: Glucose,Whole Blood 65 mg/dL (75-99)
[2016-09-12] MEDS: predniSONE 10 MG TAB PO SCH (13:17)
[2016-09-12] MEDS: ALPRAZolam 0.25 MG TAB PO PRN (13:17)
--- NOTE | 2016-09-12 13:45 | P.PN ---
Subjective Principal diagnosis: Acute hypoxic and hypercapnic respiratory failure secondary to COPD 45-year-old female patient with advanced end-stage COPD who has had multiple hospitalization for COPD exacerbation. In the past year of 2016, the patient at least 6 hospitalization last one being in June 2016. She unfortunately continues to smoke cigarettes. She is oxygen dependent. She is also steroid dependent and she's been taking 20 mg of prednisone a daily basis. The patient has been noncompliant to smoking . She has been maintained on a combination of Spiriva and Symbicort on outpatient basis in addition to her daily prednisone. Her baseline FEV1 is around 27% of predicted. She has chronic hypoxic respiratory failure. She has had previous MRSA pneumonia. The patient came in for increased shortness of breath and at time of my evaluation this morning the patient was in considerable respiratory distress and she was using accessory muscles of breathing. She was placed on BiPAP accordingly at a pressure of 10 over 5 cm of water. Blood gases while the patient 100% nonrebreather showed a pH of 7.28 with a pCO2 of 82 and pO2 of 73. Chest x-ray shows no evidence of any pneumonia and there is extensive hyperinflation. No fever. No chills. No change in mental status. No nausea. No vomiting. She has a congested cough. She is unable to bring up any sputum. Note that the patient was being treated for acute COPD exacerbation, the patient became progressively more short of breath. She was utilizing BiPAP throughout the afternoon yesterday. She became more lethargic and obtunded and she was headed towards respiratory failure. The blood gas that was done at that time showed a pH of 7.2 with a pCO2 of 101 and pO2 of 144. At that point, the patient got moved to the intensive care unit the patient was intubated and placed on a mechanical ventilator. Patient was reevaluated today on the medical floor on 09/12/2016, she was extubated almost 4 days ago, and she has been doing quite well. Remains mostly on nasal cannula at 5 L, she is not using her BiPAP, and patient is requesting to be discharged home. Overall I believe the patient has made better than expected improvement. Labs from today were reviewed. And they seem to be relatively unremarkable. Her last chest x-ray from 09/08/2016, showed minimal residual atelectasis and scarring in the peripheral right midlung. No follow- up chest x-ray has been done since then, and I plan to order one to be done in a.m. Objective - Vital Signs Vital signs: Vital Signs Temp 97.4 F L 09/12/16 07:00 Pulse 88 09/12/16 13:00 Resp 18 09/12/16 07:00 BP 144/81 09/12/16 07:00 Pulse Ox 93 L 09/12/16 07:00 Intake & Output 09/11/16 09/12/16 09/12/16 18:59 06:59 18:59 Intake Total 600 Balance 600 Weight 44 kg Intake: IV 120 Sodium Chloride 0.9% 1, 120 000 ml @ 40 mls/hr IV . Q24H [place] Rx#:[id number] Oral 480 Other: Voiding Method Bedside Commode Bedside Commode # Voids 2 2 1 - Exam Physical Exam: Revealed a 45-year-old female chronically ill, on mechanical ventilation, appropriate, follows instructions, on CPAP. HEENT:[Neck is supple.] [No neck masses.] [No thyromegaly.] [No JVD.] Chest: [Diminished breath sound bilaterally no rhonchi, no wheezes] Cardiac Exam: [Normal S1 and S2, no S3 gallop, no murmur.] Abdomen: [Soft, nontender, no megaly, no rebound, no guarding, normal bowel sounds.] Extremities: [No clubbing, no edema, no cyanosis.] Neurological Exam: [No focal neurologic deficit.] - Labs CBC & Chem 7: 09/12/16 07:17 09/12/16 07:17 Labs: Abnormal Lab Results - Last 24 Hours (Table) 09/11/16 09/11/16 09/12/16 Range/Units 17:02 20:46 07:17 RDW 16.2 H (11.5-15.5) % Plt Count 604 H (150-450) k/uL Neutrophils # 7.9 H (1.3-7.7) k/uL Carbon Dioxide (22-30) mmol/L BUN (7-17) mg/dL Creatinine (0.52-1.04) mg/dL Glucose (74-99) mg/dL POC Glucose (mg/dL) 121 H 163 H (75-99) mg/dL 09/12/16 09/12/16 09/12/16 Range/Units 07:17 11:54 12:12 RDW (11.5-15.5) % Plt Count (150-450) k/uL Neutrophils # (1.3-7.7) k/uL Carbon Dioxide 32 H (22-30) mmol/L BUN 30 H (7-17) mg/dL Creatinine 0.35 L (0.52-1.04) mg/dL Glucose 107 H (74-99) mg/dL POC Glucose (mg/dL) 65 L 113 H (75-99) mg/dL Assessment and Plan Plan: 1 acute hypercapnic respiratory failure secondary to advanced end-stage COPD with a baseline FEV1 of 27% of predicted. Patient was extubated on 09/07/2016 On 09/05/2016 the patient is intubated on a mechanical ventilator. She is on a volume cycled assist-control mode of ventilation. Blood gases showed improvement acid-base status. Peak airway pressure remains elevated and the patient remains quite bronchospastic and wheezy. She is treated with a chem initial broncho-diet and steroids. She is also on antibiotics. There is improvement since yesterday. On 09/06/2016, patient remains on mechanical ventilation, continues to have significant amount of wheezing and rhonchi noted bilaterally on physical examination, clearly patient is not ready for weaning and extubation at this point. On 09/07/2016, patient was extubated, she will be given initially at trial on high flow nasal cannula, and if not tolerated may consider placing the patient on BiPAP. On 09/08/2016, patient remains off mechanical ventilation, intermittently using BiPAP, and she seems to be doing well and better than expected overall. On 09/09/2016, patient continues to do well, but she is intermittently on BiPAP, hence I will arrange for the patient to transfer out of the ICU today. And will continue to monitor closely while inpatient. 2 acute hypercapnic respiratory failure, status post intubation mechanical ventilation. 3 acute on top of chronic hypercapnic respiratory failure with a component of respiratory acidosis on the blood gas 4 chronic hypoxic respiratory failure with further decompensation in her oxygenation due to COPD exacerbation. 5 chronic steroid dependence 6 cachectic/catabolic state secondary to advanced COPD 7 nicotine addiction/smoking 8 cervical cancer 9 cervical spondylosis and lumbar spine spondylosis 10 peptic ulcer disease 11 remote history of MRSA pneumonia Plan Continue present supportive care measures, continue bronchodilators, antibiotics , patient is on Levaquin, continue steroids, follow-up chest x-ray in a.m., consider discharge planning in the next 24-48 hours. Long-term prognosis remains poor and guarded, patient will most likely go back to smoking in spite of counseling regarding smoking cessation, and most likely she will come back with another episode of respiratory failure secondary to COPD requiring intubation and mechanical ventilation. Overall her prognosis is very poor. Time with Patient: Less than 30
[2016-09-12] MEDS: IPRATROPIUM-ALBUTEROL 3 ML NEB INHALATION PRN (15:24)
[2016-09-12 17:32] LABS: Glucose,Whole Blood 117 mg/dL (75-99)
[2016-09-12 20:24] LABS: Glucose,Whole Blood 204 mg/dL (75-99)
[2016-09-12] MEDS: ASPIRIN 325 MG TAB PO SCH (20:34)
[2016-09-12] MEDS: risperiDONE 1 MG TAB PO SCH (20:35)
[2016-09-12] MEDS: traZODone HCL 100 MG TAB PO SCH (20:35)
[2016-09-12] MEDS: buPROPion SR 150 MG TABLET.ER PO SCH (20:37)
[2016-09-13] MEDS: IPRATROPIUM-ALBUTEROL 3 ML NEB INHALATION PRN ×2 (01:14→04:57)
[2016-09-13] MEDS: HYDROmorphone 1 MG/ML 1 ML SYRINGE IVP PRN (03:47)
[2016-09-13] MEDS: PANTOPRAZOLE 40 MG TABLET PO SCH (07:49)
[2016-09-13] MEDS: IPRATROPIUM-ALBUTEROL 3 ML NEB INHALATION SCH ×2 (08:14→12:06)
[2016-09-13] MEDS: FORMOTEROL FUMARATE 20 MCG/2 ML NEBU INHALATION SCH (08:14)
[2016-09-13] MEDS: BUDESONIDE 0.5 MG/2 ML NEBU INHALATION SCH (08:14)
[2016-09-13 08:15] LABS: Glucose,Whole Blood 78 mg/dL (75-99)
[2016-09-13 08:42] VITALS: BP 116/80; RESP 17; TEMP 97.4
[2016-09-13 08:45] LABS: Anisocytosis Slight; Basophils % (A) 0 %; CH 26.9; CHCM 31.2; Eosinophils # (A) 0.1 k/uL (0-0.7); Eosinophils % (A) 1 %; HCT 43.2 % (34.0-46.0); HDW 3.03; HGB 13.3 gm/dL (11.4-16.0); Hypochromasia Moderate; Luc # (Auto) 0.21; Luc % (Auto) 2; Lymphocytes # (A) 3.4 k/uL (1.0-4.8); Lymphocytes % (A) 25 %; MCH 26.7 pg (25.0-35.0); MCHC 30.9 g/dL (31.0-37.0); MCV 86.4 fL (80.0-100.0); Mean Platelet Volume 7.1; Monocytes # (A) 0.6 k/uL (0-1.0); Monocytes % (A) 4 %; Neutrophils # (A) 9.5 k/uL (1.3-7.7); Neutrophils % (A) 69 %; RDW 16.4 % (11.5-15.5); WBC 13.8 k/uL (3.8-10.6); WBC (Perox) 14.05
[2016-09-13] MEDS: INSULIN LISPRO (humaLOG) 300 UNIT/3 ML VIAL SQ SCH (08:49)
[2016-09-13] MEDS: THEOPHYLLINE 24 HOUR 300 MG CAP.ER.24H PO SCH (08:52)
[2016-09-13] MEDS: MULTIVITAMINS, THERA 1 EACH TAB PO SCH (08:52)
[2016-09-13] MEDS: NYSTATIN 100,000 UNIT/ML SUSP 500,000 UNIT/5 ML CUP PO SCH (08:52)
[2016-09-13] MEDS: predniSONE 10 MG TAB PO SCH (08:52)
[2016-09-13] MEDS: LEVOFLOXACIN 500 MG TAB PO SCH (08:52)
[2016-09-13] MEDS: HEPARIN SODIUM,PORCINE 5,000 UNIT/ML 1 ML VIAL SQ SCH (08:53)
[2016-09-13 08:57] LABS: Anion Gap 7 mmol/L; Blood Urea Nitrogen 27 mg/dL (7-17); Calcium 9.6 mg/dL (8.4-10.2); Carbon Dioxide 32 mmol/L (22-30); Chloride 94 mmol/L (98-107); Glucose 71 mg/dL (74-99); Non-African American GFR(MDRD) >60 (>60 ml/min/1.73 sqM); Potassium 5.4 mmol/L (3.5-5.1); Sodium 133 mmol/L (137-145)
--- NOTE | 2016-09-13 09:01 | PN ---
DATE OF SERVICE: 09/12/2016 This 44-year-old woman who was admitted with COPD, acute exacerbation, also had acute respiratory failure. The patient is still having significant shortness of breath, but the patient is off BiPAP at this time. The patient has right middle lobe pneumonia secondary to Strep pneumonia and multiple consultants including Dr. Trujillo and Dr. Ng are following the patient closely. PAST MEDICAL HISTORY: reviewed. REVIEW OF SYSTEMS: CARDIOVASCULAR: No angina or palpitations. Respiratory system: As mentioned earlier. GASTROINTESTINAL: As mentioned earlier. GENITOURINARY: No dysuria. CENTRAL NERVOUS SYSTEM: No focal deficits. ALLERGY/IMMUNOLOGY: No asthma or hayfever. MUSCULOSKELETAL: As mentioned earlier. The current medications are: 1. DuoNeb q.i.d. and p.r.n. 2. Xanax 0.25 t.i.d. 5. Pulmicort 0.5 b.i.d. 6. Wellbutrin 150 mg. 7. Perforomist 20 mg b.i.d. 8. Heparin 5000 subcu q.8. 9. Dilaudid 0.5 mg b.i.d. 10. Levaquin 500 mg daily. 11. Ativan. 12. Multivitamin. 13. Narcan. 14. Protonix. 15. Risperdal 3 mg q.h.s. 16. Akhil-24 300 mg p.o. b.i.d. 17. Desyrel 300 mg p.o. q.h.s. PHYSICAL EXAMINATION: The patient is alert and oriented x3. Pulse is 90, blood pressure is 139/72 respiration 18. Temperature 97.2. Pulse ox 97% on 5 L. HEENT: Conjunctivae normal. NECK: No jugular venous distention. CARDIOVASCULAR: S1, S2 muffled. RESPIRATORY: Breath sounds diminished at the bases. Bilateral scattered rhonchi and crackles. Respiratory wheezing also present. ABDOMEN: Soft, nontender. No mass palpable. Legs: No edema. No swelling. CENTRAL NERVOUS SYSTEM: Higher functions as mentioned earlier. Moves all four limbs. No focal deficits. LYMPHATICS: No lymph nodes palpable in the neck, axillae or groin. SKIN: No ulcer, rash or bleeding. LABS: Platelets are 604, creatinine 0.35, otherwise BMI 18.9. ASSESSMENT: 1. Chronic obstructive pulmonary disease, acute exacerbation, with acute hypoxic respiratory failure status post mechanical ventilation. 2. Right middle lobe secondary to Strep pneumonia with possible sepsis, present on admission. 3. Change in mental status, metabolic encephalopathy secondary to hypercarbia. 4. On BiPAP on and off. 5. Acute on chronic pain syndrome. 6. History of nicotine dependence. 7. History of anxiety. 8. Chest pain, possible musculoskeletal. 9. Acute respiratory acidosis. 10. History of severe malnutrition secondary to advanced chronic obstructive pulmonary disease, with body mass index 18.5. 11. History of cervical cancer. 12. Chronic steroid dependence. 13. Methicillin-resistant Staphylococcus aureus. 14. Cervical spondylosis. 15. FULL CODE. RECOMMENDATIONS AND DISCUSSION: In this 45 -year-old woman who presented with multiple complex medical issues, we will monitor the patient closely. Continue the current medications. Continue symptomatic treatment. Otherwise, at this time, I recommend to continue the intensive bronchodilators, continue with antibiotics. Resume the home medications. Repeat labs will be ordered. Otherwise, closely follow with the pulmonary. Increase ambulation. At this time, the patient would like to go home and we will continue to monitor. Further recommendations to follow. MTDD
--- NOTE | 2016-09-13 09:14 | XR ---
EXAMINATION TYPE: XR chest 1V portable DATE OF EXAM: 09/13/2016 8:59 AM HISTORY: Shortness of breath. COMPARISON: 09/08/2016 TECHNIQUE: Single view of the chest is submitted. FINDINGS: Demonstrated are scattered senescent parenchymal change. There is no evidence for focal infiltrate. Area of minor infiltrate periphery of the right mid lung z one appears to have resolved. Minimal linear changes noted. The heart is stable. Hilar and mediastinal structures are within normal limits. Degenerative changes are seen of the dorsal spine. IMPRESSION: 1. Chronic changes without evidence for acute pulmonary disease.
[2016-09-13 13:09] VITALS: PULSE 84
--- NOTE | 2016-09-13 17:42 | P.PN ---
Subjective Principal diagnosis: Bacteremia This is a 45-year-old female known to ID service. She has a past medical history for advanced end-stage COPD with FEV1 27% of predicted, chronic hypoxic respiratory failure on home O2 and steroid dependent at 20 mg daily. She also has history of previous MRSA pneumonia. Patient presented to the hospital with complaints of shortness of breath that had been going on for a while but significantly worsening. Her initial chest x-ray showed COPD, pulmonary fibrosis. She had a white count of 20, lactic acid less than 0.5, urinalysis was clear with nitrate and leukoesterase negative. Albumin 3.3. Patient was admitted initially to the selective care unit and started on IV Levaquin as well as DuoNeb treatments, IV Solu-Medrol and inhaled steroids. That afternoon, patient developed lethargy and was obtunded ended up being transferred to the intensive care unit and intubated on September 04. She has been maintained in the intensive care unit she has not required vasopressors. She has been successfully extubated this morning. Repeat chest x-ray this morning reveals no acute pulmonary process. She has been followed by pulmonary medicine. She is currently on BiPAP and pulse ox 97%. Her white count is down to 5.5. Sputum culture is showing strep pneumoniae resistant to azithromycin and erythromycin. Sore throat improved. Her shortness of breath is improved. She's had time off of BiPAP. remains out of the intensive care unit Objective - Vital Signs Vital signs: Vital Signs Temp 97.4 F L 09/13/16 07:00 Pulse 80 09/13/16 12:17 Resp 17 09/13/16 08:00 BP 116/80 09/13/16 07:00 Pulse Ox 97 09/13/16 07:00 Intake & Output 09/12/16 09/13/16 09/13/16 18:59 06:59 18:59 Intake Total 480 Balance 480 Weight 42.5 kg Intake: Oral 480 Other: Voiding Method Bedside Commode Bedside Commode Toilet # Voids 2 3 - Exam Gen: This is a thin 45-year-old female. She is currently on BiPAP and does not appear to be in respiratory distress. She appears comfortable. HEENT: Head is atraumatic, normocephalic. Pupils equal, round. Sclerae is anicteric. White patches on the tongue. NECK: Supple. No JVD. No lymphadenopathy. No thyromegaly. LUNGS: Symmetrical air entry that is diminished. Expiratory wheezes scattered the lung cagle. No balta bronchial sounds or egophony. HEART: Irregular rate and rhythm. No murmur. ABDOMEN: Flat. Soft. Bowel sounds are present. No masses. No tenderness. EXTREMITIES: No pedal edema. No calf tenderness. Dorsalis pedis is strong bilaterally. NEUROLOGICAL: Patient is awake, alert and oriented x3 - Labs CBC & Chem 7: 09/13/16 07:33 09/13/16 07:33 Labs: Abnormal Lab Results - Last 24 Hours (Table) 09/12/16 09/13/16 09/13/16 Range/Units 20:23 07: 07:33 WBC 13.8 H (3.8-10.6) k/uL MCHC 30.9 L (31.0-37.0) g/dL RDW 16.4 H (11.5-15.5) % Plt Count 589 H (150-450) k/uL Neutrophils # 9.5 H (1.3-7.7) k/uL Sodium 133 L (137-145) mmol/L Potassium 5.4 H (3.5-5.1) mmol/L Chloride 94 L (98-107) mmol/L Carbon Dioxide 32 H (22-30) mmol/L BUN 27 H (7-17) mg/dL Creatinine 0.38 L (0.52-1.04) mg/dL Glucose 71 L (74-99) mg/dL POC Glucose (mg/dL) 204 H (75-99) mg/dL Laboratory Results WBC 13.8 k/uL (3.8-10.6) H 09/13/16 07:33 RBC 5.00 m/uL (3.80-5.40) 09/13/16 07:33 Hgb 13.3 gm/dL (11.4-16.0) 09/13/16 07:33 Hct 43.2 % (34.0-46.0) 09/13/16 07:33 MCV 86.4 fL (80.0-100.0) 09/13/16 07:33 MCH 26.7 pg (25.0-35.0) 09/13/16 07:33 MCHC 30.9 g/dL (31.0-37.0) L 09/13/16 07:33 RDW 16.4 % (11.5-15.5) H 09/13/16 07:33 Plt Count 589 k/uL (150-450) H 09/13/16 07:33 Neutrophils % 69 % 09/13/16 07:33 Neutrophils % (Manual) 61.0 % 09/04/16 02:09 Band Neutrophils % 26.0 % 09/04/16 02:09 Lymphocytes % 25 % 09/13/16 07:33 Lymphocytes % (Manual) 10.0 % 09/04/16 02:09 Monocytes % 4 % 09/13/16 07:33 Monocytes % (Manual) 3.0 % 09/04/16 02:09 Eosinophils % 1 % 09/13/16 07:33 Basophils % 0 % 09/13/16 07:33 Neutrophils # 9.5 k/uL (1.3-7.7) H 09/13/16 07:33 Neutrophils # (Manual) 14.2 k/uL (1.3-7.7) H 09/04/16 02:09 Lymphocytes # 3.4 k/uL (1.0-4.8) 09/13/16 07:33 Lymphocytes # (Manual) 1.6 k/uL (1.0-4.8) 09/04/16 02:09 Monocytes # 0.6 k/uL (0-1.0) 09/13/16 07:33 Monocytes # (Manual) 0.5 k/uL (0-1.0) 09/04/16 02:09 Eosinophils # 0.1 k/uL (0-0.7) 09/13/16 07:33 Basophils # 0.0 k/uL (0-0.2) 09/13/16 07:33 Nucleated RBCs 0 /100 WBC (0-0) 09/04/16 02:09 Manual Slide Review Performed 09/04/16 02:09 Hypochromasia Moderate 09/13/16 07:33 Anisocytosis Slight 09/13/16 07:33 Sample Site LRAD 09/06/16 05:04 ABG pH 7.34 (7.35-7.45) L 09/06/16 05:04 ABG pCO2 68 mmHg (35-45) H 09/06/16 05:04 ABG pO2 97 mmHg (83-108) 09/06/16 05:04 ABG HCO3 35 mmol/L (21-25) H 09/06/16 05:04 ABG Total CO2 37 mmol/L (19-24) H 09/06/16 05:04 ABG O2 Saturation 97.0 % (94-97) 09/06/16 05:04 ABG Base Excess 9.4 mmol/L 09/06/16 05:04 FiO2 45 % 09/06/16 05:04 Sodium 133 mmol/L (137-145) L 09/13/16 07:33 Potassium 5.4 mmol/L (3.5-5.1) H 09/13/16 07:33 Chloride 94 mmol/L (98-107) L 09/13/16 07:33 Carbon Dioxide 32 mmol/L (22-30) H 09/13/16 07:33 Anion Gap 7 mmol/L 09/13/16 07:33 BUN 27 mg/dL (7-17) H 09/13/16 07:33 Creatinine 0.38 mg/dL (0.52-1.04) L 09/13/16 07:33 Est GFR (MDRD) Af Amer >60 (>60 ml/min/1.73 sqM) 09/13/16 07:33 Est GFR (MDRD) Non-Af >60 (>60 ml/min/1.73 sqM) 09/13/16 07:33 Glucose 71 mg/dL (74-99) L 09/13/16 07:33 POC Glucose (mg/dL) 78 mg/dL (75-99) 09/13/16 07:35 POC Glu [employer] JOSEPH Mari Hairston M 09/13/16 07:[address] Glu mg/dL 134 mg/dL 09/04/16 05:06 Hemoglobin A1c 6.3 % (4.2-6.1) H 09/04/16 05:06 Plasma Lactic Acid Tim <0.5 mmol/L (0.7-2.0) L 09/04/16 19:57 Calcium 9.6 mg/dL (8.4-10.2) 09/13/16 07:33 Phosphorus 3.4 mg/dL (2.5-4.5) 09/09/16 04:45 Magnesium 1.9 mg/dL (1.6-2.3) 09/09/16 04:45 Total Bilirubin 0.4 mg/dL (0.2-1.3) 09/04/16 19:57 AST 41 U/L (14-36) H 09/04/16 19:57 ALT 32 U/L (9-52) 09/04/16 19:57 Alkaline Phosphatase 74 U/L (38-126) 09/04/16 19:57 Total Protein 6.4 g/dL (6.3-8.2) 09/04/16 19:57 Albumin 3.3 g/dL (3.5-5.0) L 09/04/16 19:57 Urine Color Light Yellow 09/04/16 19:45 Urine Appearance Clear (Clear) 09/04/16 19:45 Urine pH 6.5 (5.0-8.0) 09/04/16 19:45 Ur Specific [employer] 1.007 (1.001-1.035) 09/04/16 19:45 Urine Protein Trace (Negative) H 09/04/16 19:45 Urine Glucose (UA) Negative (Negative) 09/04/16 19:45 Urine Ketones Negative (Negative) 09/04/16 19:45 Urine Blood Negative (Negative) 09/04/16 19:45 Urine Nitrate Negative (Negative) 09/04/16 19:45 Urine Bilirubin Negative (Negative) 09/04/16 19:45 Urine Urobilinogen <2.0 mg/dL (<2.0) 09/04/16 19:45 Ur Leukocyte Esterase Negative (Negative) 09/04/16 19:45 Microbiology 09/04/16 20:30 Sputum Gram Stain - Final 09/04/16 20:30 Sputum Sputum Culture - Final Streptococcus pneumoniae 09/04/16 19:45 Urine,Catheterized Urine Culture - Final Assessment and Plan (1) Acute exacerbation of chronic obstructive airways disease Status: Acute (2) Sepsis due to Streptococcus pneumoniae Narrative/Plan: 45-year-old female with advanced COPD presented to hospital with exacerbation of underlying COPD. Without evidence of bacteremia and sepsis and respiratory failure. She's been treated with BiPAP therapy with improvement. Does feel better today. Cultures show evidence of a strptococcus pneumoniae susceptible to levofloxacin. This will be continued for a total of 10 days at this time. Continue supportive care. She's feeling better today. For discharge today. No other positive cultures. The significant leukocytosis has improved. Status: Acute
--- NOTE | 2016-09-14 10:43 | DS ---
DATE OF ADMISSION: 09/04/2016 DATE OF DISCHARGE: 09/13/2016 FINAL DIAGNOSES: 1. Chronic obstructive pulmonary disease acute exacerbation, with acute hypoxic respiratory failure, status post mechanical ventilation. 2. Right middle lobe pneumonia, possibly secondary to Strep pneumonia with possible sepsis present on admission. 3. Change in mental status and metabolic encephalopathy secondary to hypercapnia. 4. On BiPAP on and off, improved. 5. Acute on chronic pain syndrome. 6. History of nicotine dependence. 7. History of anxiety. 8. Chest pain, possibly musculoskeletal. 9. Acute respiratory acidosis. 10. History of severe malnutrition secondary to advanced chronic obstructive pulmonary disease with body mass index of 18.5. 11. History of cervical cancer. 12. Chronic steroid dependence. 13. History of methicillin-resistant Staphylococcus aureus. 14. Cervical spondylosis. 15. FULL CODE. DISCHARGE DISPOSITION: The patient will be discharged in a stable condition with guarded prognosis. HISTORY OF PRESENT ILLNESS: This 45-year-old woman with a past medical history of multiple medical problems being followed by Dr. Italo John in the outpatient setting was admitted with COPD acute exacerbation as well as pneumonia, was treated with antibiotics. Patient improved significantly. Chest x-ray showed significant clearing. On exam, vitals are stable. CARDIOVASCULAR SYSTEM: S1, S2, muffled. ABDOMEN: Soft. NERVOUS SYSTEM: No focal deficits. The patient will be discharged in stable condition with guarded prognosis with the following advice: 1. Diet is cardiac. 2. Activity limited until followup. 3. Followup with Dr. Italo John in 2 to 3 days. 4. Follow up Ronnie as advised. Medications will be as follows: 1. Xanax 0.25 t.i.d. p.r.n. 2. Albuterol inhaler q.i.d. and p.r.n. 3. Ecotrin 325 mg q.h.s. 4. Symbicort 160/4.5 two puffs b.i.d. 5. Ovid 10 mg t.i.d. p.r.n. 6. Atrovent 2 puffs q.i.d. 7. Levaquin 500 mg p.o. daily for 5 days. 8. Multivitamin 1 p.o. daily. 9. Nystatin oral 6 mL q.i.d. for 5 days. 10. Prilosec 40 mg p.o. b.i.d. 11. Akhil-24 three hundred mg p.o. b.i.d. 12. Wellbutrin SR 150 mg q.h.s. 13. Ropinirole 0.5 mg q.h.s. 14. Risperdal 3 mg q.h.s. 15. Trazodone 300 mg q.h.s. Once again, the patient will be discharged in a stable condition with guarded prognosis.
== END 2016-09-13 13:10 | disposition home health service (06) | DRG 871 ==
LOC: EC 01:38 → 6SEL 03:53 → 6ICU 18:50 → 5MS5E 09-09 12:47
PROVIDERS: ADMIT Family Medicine; ATTEND Family Medicine
PROC: 0BH17EZ Insertion of Endotracheal Airway into Trachea, Via Natural or Artificial Opening (ICD-10-PCS; principal; 2016-09-05)
PROC: 5A1945Z Respiratory Ventilation, 24-96 Consecutive Hours (ICD-10-PCS; principal; 2016-09-05)
DX: A40.3 Sepsis due to Streptococcus pneumoniae (principal); E43 Unspecified severe protein-calorie malnutrition; J96.21 Acute and chronic respiratory failure with hypoxia; G93.41 Metabolic encephalopathy; J15.4 Pneumonia due to other streptococci; E87.2 Acidosis; R64 Cachexia; J44.0 Chronic obstructive pulmonary disease with (acute) lower respiratory infection; J84.10 Pulmonary fibrosis, unspecified; B37.0 Candidal stomatitis; J96.22 Acute and chronic respiratory failure with hypercapnia; J44.1 Chronic obstructive pulmonary disease with (acute) exacerbation; J98.11 Atelectasis; Z68.1 Body mass index [BMI] 19.9 or less, adult; Z85.41 Personal history of malignant neoplasm of cervix uteri; E78.5 Hyperlipidemia, unspecified; F17.210 Nicotine dependence, cigarettes, uncomplicated; F32.9 Major depressive disorder, single episode, unspecified; F41.9 Anxiety disorder, unspecified; G89.4 Chronic pain syndrome; I25.2 Old myocardial infarction; J45.909 Unspecified asthma, uncomplicated; K21.9 Gastro-esophageal reflux disease without esophagitis; K27.9 Peptic ulcer, site unspecified, unspecified as acute or chronic, without hemorrhage or perforation; M19.90 Unspecified osteoarthritis, unspecified site; M47.812 Spondylosis without myelopathy or radiculopathy, cervical region; M47.816 Spondylosis without myelopathy or radiculopathy, lumbar region; Z16.29 Resistance to other single specified antibiotic; Z53.29 Procedure and treatment not carried out because of patient's decision for other reasons; Z79.52 Long term (current) use of systemic steroids; Z79.82 Long term (current) use of aspirin; Z86.14 Personal history of Methicillin resistant Staphylococcus aureus infection; Z87.01 Personal history of pneumonia (recurrent); Z91.19 Patient's noncompliance with other medical treatment and regimen; Z99.81 Dependence on supplemental oxygen
CPT/HCPCS: 31500; 36415; 36600; 71010; 80048; 80053; 81003; 82805; 83036; 83605; 83735; 84100; 85025; 87070; 87077; 87086; 87186; 87205; 93005; 94002; 94003; 94640; 94660; 96374; 96375; 99291

== ENCOUNTER 2016-10-31 16:51 | Inpatient (IN) | payer OTHER ==
[2016-10-31] MEDS ORDERED: methylPREDNISolone SOD SUCCI 125 MG/2 ML VIAL IV STA (17:13)
[2016-10-31] MEDS ORDERED: IPRATROPIUM-ALBUTEROL 3 ML NEB INHALATION STA ×2 (17:13→18:47)
--- NOTE | 2016-10-31 17:16 | ED ---
General Adult HPI - General Chief complaint: Shortness of Breath Stated complaint: Difficulty Breathing Time Seen by Provider: 10/31/16 17:13 Source: patient Mode of arrival: wheelchair Limitations: no limitations - History of Present Illness Initial comments: 46-year-old female history of COPD onset increased shortness of breath last 2 days she has severe COPD on 5 L nasal O2 been using her updrafts of albuterol and Atrovent every hour or 2. She's coughing up some yellow phlegm. No fever chills no weakness. No nausea no vomiting no diarrhea no history diabetes, hypertension, seizures, or stroke. - Related Data Home Medications Medication Instructions Recorded Confirmed Albuterol Inhaler [Ventolin Hfa 2 puff INHALATION RT-Q6H PRN 01/03/14 10/31/16 Inhaler] Omeprazole [PriLOSEC] 40 mg PO BID 01/03/14 10/31/16 Multivitamins, Thera [Multivitamin] 1 tab PO DAILY 12/24/14 10/31/16 risperiDONE 3 mg PO HS 12/24/14 10/31/16 traZODone HCL 300 mg PO HS 12/24/14 10/31/16 buPROPion SR [Wellbutrin SR] 150 mg PO HS 04/30/15 10/31/16 Albuterol Nebulized [Ventolin 2.5 mg INHALATION RT-Q4H 03/24/16 10/31/16 Nebulized] Aspirin [Aspirin EC] 325 mg PO HS 03/24/16 10/31/16 Ipratropium [place] [Atrovent Hfa] 2 puff INHALATION RT-QID 07/07/16 10/31/16 HYDROcodone/APAP 10-325MG [[place] 1 tab PO TID PRN 07/08/16 10/31/16 10-325] rOPINIRole HCL 0.5 mg PO HS 07/18/16 10/31/16 Pregabalin [Lyrica] 100 mg PO BID 10/31/16 10/31/16 Previous Rx's Medication Instructions Recorded Budesonide-Formot 160-4.5 Mcg 2 puff INHALATION RT-BID puff 07/13/16 [Symbicort 160-4.5 Mcg Inhaler] Theophylline 24 Hour [Akhil-24] 300 mg PO BID 30 Days 07/21/16 ALPRAZolam [Xanax] 0.25 mg PO TID PRN #30 tab 09/13/16 Nystatin 100,000 Unit/ml Susp 500,000 unit PO QID 5 Days 09/13/16 [Mycostatin Oral Susp] Allergies Allergy/AdvReac Type Severity Reaction Status Date / Time aripiprazole [From Abilify] Allergy Rash/Hives Verified 10/31/16 17:30 honey Allergy Rash/Hives Verified 10/31/16 17:30 methadone [Methadone] Allergy Itching Verified 10/31/16 17:30 naproxen Allergy Rash/Hives Verified 10/31/16 17:30 sulfamethoxazole Allergy Rash/Hives Verified 10/31/16 17:30 [From Bactrim] tetracycline [Tetracycline] Allergy Rash/Hives Verified 10/31/16 17:30 trimethoprim [From Bactrim] Allergy Rash/Hives Verified 10/31/16 17:30 adhesive tape AdvReac Rash/Hives Verified 10/31/16 17:30 codeine AdvReac Abdominal Verified 10/31/16 17:30 Pain ketorolac tromethamine AdvReac Vomiting Verified 10/31/16 17:30 [From Toradol] pregabalin [From Lyrica] AdvReac Unknown Verified 10/31/16 17:30 tramadol HCl [From Ultram] AdvReac SEIZURES Verified 10/31/16 17:30 tromethamine AdvReac Nausea & Verified 10/31/16 17:30 Vomiting Review of Systems ROS Statement: Those systems with pertinent positive or pertinent negative responses have been documented in the HPI. ROS Other: All systems not noted in ROS Statement are negative. Constitutional: Denies: fever, chills Eyes: Denies: eye pain, eye discharge ENT: Denies: ear pain Respiratory: Reports: cough, dyspnea Cardiovascular: Denies: chest pain Endocrine: Denies: fatigue Gastrointestinal: Denies: abdominal pain, nausea, diarrhea Genitourinary: Denies: urgency, dysuria, frequency Musculoskeletal: Denies: back pain Skin: Denies: rash Neurological: Denies: headache Psychiatric: Denies: anxiety Hematological/Lymphatic: Denies: easy bleeding, easy bruising Past Medical History Past Medical History: Asthma, Cancer, Chest Pain / Angina, COPD, GERD/Reflux, Hyperlipidemia, Osteoarthritis (OA) Additional Past Medical History / Comment(s): COPD which is been end-stage with frequent hospitalization for acute COPD exacerbation. The patient has chronic hypoxic and hypercapnic respiratory failure. 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, cervical and lumbar spine spondylosis, chronic migraines, peptic ulcer disease/gastric ulcers, carpal tunnel disease bilaterally, herniated disc at level of C5-C6 and C7, cervical cancer, depression, cachexia and malnourishment and significant loss and total body protein mass Last Myocardial Infarction Date:: UNK History of Any Multi-Drug Resistant Organisms: MRSA Date of last positivie culture/infection: 06/18/2015 MDRO Source:: SPUTUM Past Surgical History: Section, Cholecystectomy, Hysterectomy, Tubal Ligation Additional Past Surgical History / Comment(s): x 2, colonoscopy with benign polypectomy. Past Anesthesia/Blood Transfusion Reactions: No Reported Reaction Additional Past Anesthesia/Blood Transfusion Reaction / Comment(s): Pt has never recieved blood. Past Psychological History: Anxiety, Bipolar, Depression Additional Psychological History / Comment(s): Pt resides with her son jessica. She performs her own ADLs. She has home O2 at 5 L/[place] ATC. She does not drive but her son takes her places. she uses a walker as needed. Per her old medical record dated 07/06/14 pt was seen in [facility] ER for suicide attempt and admitted to psych. Relates that she is an ongoing tobacco smoker-smokes 3 CIG/ DAY. She does not have experience. She has no international travels. Smoking Status: Former smoker Past Alcohol Use History: None Reported Additional Past Alcohol Use History / Comment(s): ADMITS TO SMOKING 3 CIG PER DAY. Past Drug Use History: Marijuana Additional Drug Use History / Comment(s): OCC MARIJUANA USE - Past Family History Father Family Medical History: No Reported History Additional Family Medical History / Comment(s): WAS AN ALCOHOLIC Mother Family Medical History: Cancer Additional Family Medical History / Comment(s): AT AGE 54-BOWEL CANCER General Exam Limitations: no limitations General appearance: alert, in no apparent distress Head exam: Present: atraumatic Eye exam: Present: normal appearance ENT exam: Present: normal oropharynx, mucous membranes moist, TM's normal bilaterally Respiratory exam: Present: wheezes Cardiovascular Exam: Present: regular rate, normal heart sounds Neurological exam: Present: alert, CN II-XII intact Psychiatric exam: Present: normal affect, normal mood Skin exam: Present: warm, dry Course Vital Signs 10/31/16 10/31/16 10/31/16 16:55 17:16 17:31 Temperature 98 F Pulse Rate 107 H 100 100 Respiratory 36 H Rate Blood Pressure 129/75 O2 Sat by Pulse 84 L Oximetry 10/31/16 10/31/16 10/31/16 17:58 18:29 19:13 Temperature 97.0 F L Pulse Rate 97 92 Respiratory 27 H 26 H Rate Blood Pressure 123/67 O2 Sat by Pulse 97 97 Oximetry 10/31/16 19:24 Temperature Pulse Rate 92 Respiratory Rate Blood Pressure O2 Sat by Pulse Oximetry Medical Decision Making - Medical Decision Making Spoke to the nurse practitioner for Dr. Kaur patient will be admitted and consult to Dr. Molina IV steroids updrafts an antibiotic. - Lab Data Result diagrams: 10/31/16 17:12 10/31/16 17:12 Lab Results 10/31/16 10/31/16 10/31/16 Range/Units 17:12 17:12 17:12 WBC 13.9 H (3.8-10.6) k/uL RBC 4.79 (3.80-5.40) m/uL Hgb 12.5 (11.4-16.0) gm/dL Hct 42.4 (34.0-46.0) % MCV 88.4 (80.0-100.0) fL MCH 26.0 (25.0-35.0) pg MCHC 29.5 L (31.0-37.0) g/dL RDW 15.9 H (11.5-15.5) % Plt Count 690 H (150-450) k/uL Neutrophils % 83 % Lymphocytes % 11 % Monocytes % 2 % Eosinophils % 1 % Basophils % 1 % Neutrophils # 11.6 H (1.3-7.7) k/uL Lymphocytes # 1.6 (1.0-4.8) k/uL Monocytes # 0.3 (0-1.0) k/uL Eosinophils # 0.1 (0-0.7) k/uL Basophils # 0.1 (0-0.2) k/uL Hypochromasia Moderate PT (9.0-12.0) sec INR (<1.1) APTT (22.0-30.0) sec Sodium 141 (137-145) mmol/L Potassium 5.0 (3.5-5.1) mmol/L Chloride 94 L (98-107) mmol/L Carbon Dioxide 40 H* (22-30) mmol/L Anion Gap 7 mmol/L BUN 17 (7-17) mg/dL Creatinine 0.37 L (0.52-1.04) mg/dL Est GFR (MDRD) Af Amer >60 (>60 ml/min/1.73 sqM) Est GFR (MDRD) Non-Af >60 (>60 ml/min/1.73 sqM) Glucose 85 (74-99) mg/dL Plasma Lactic Acid Tim (0.7-2.0) mmol/L Calcium 10.1 (8.4-10.2) mg/dL Total Bilirubin 0.4 (0.2-1.3) mg/dL AST 17 (14-36) U/L ALT 24 (9-52) U/L Alkaline Phosphatase 87 (38-126) U/L Total Creatine Kinase 37 (30-135) U/L CK-MB (CK-2) 3.0 H* (0.0-2.4) ng/mL CK-MB (CK-2) Rel Index 8.1 Troponin I <0.012 (0.000-0.034) ng/mL Total Protein 7.0 (6.3-8.2) g/dL Albumin 3.7 (3.5-5.0) g/dL 10/31/16 10/31/16 Range/Units 17:12 17:12 WBC (3.8-10.6) k/uL RBC (3.80-5.40) m/uL Hgb (11.4-16.0) gm/dL Hct (34.0-46.0) % MCV (80.0-100.0) fL MCH (25.0-35.0) pg MCHC (31.0-37.0) g/dL RDW (11.5-15.5) % Plt Count (150-450) k/uL Neutrophils % % Lymphocytes % % Monocytes % % Eosinophils % % Basophils % % Neutrophils # (1.3-7.7) k/uL Lymphocytes # (1.0-4.8) k/uL Monocytes # (0-1.0) k/uL Eosinophils # (0-0.7) k/uL Basophils # (0-0.2) k/uL Hypochromasia PT 9.9 (9.0-12.0) sec INR 1.0 (<1.1) APTT 21.7 L (22.0-30.0) sec Sodium (137-145) mmol/L Potassium (3.5-5.1) mmol/L Chloride (98-107) mmol/L Carbon Dioxide (22-30) mmol/L Anion Gap mmol/L BUN (7-17) mg/dL Creatinine (0.52-1.04) mg/dL Est GFR (MDRD) Af Amer (>60 ml/min/1.73 sqM) Est GFR (MDRD) Non-Af (>60 ml/min/1.73 sqM) Glucose (74-99) mg/dL Plasma Lactic Acid Tim 1.0 (0.7-2.0) mmol/L Calcium (8.4-10.2) mg/dL Total Bilirubin (0.2-1.3) mg/dL AST (14-36) U/L ALT (9-52) U/L Alkaline Phosphatase (38-126) U/L Total Creatine Kinase (30-135) U/L CK-MB (CK-2) (0.0-2.4) ng/mL CK-MB (CK-2) Rel Index Troponin I (0.000-0.034) ng/mL Total Protein (6.3-8.2) g/dL Albumin (3.5-5.0) g/dL - EKG Data -: EKG Interpreted by Me 10/31/16 18:55 EKG 10/31/2016 1835 ventricular rate 94 bpm NM interval 134 ms QRS duration 64 ms QT interval 330 ms normal sinus rhythm left axis deviation possible old septal infarct age undetermined. Disposition Clinical Impression: Asthma exacerbation in COPD Disposition: ADMITTED IP TO THIS HOSP Condition: Fair Time of Disposition: 19:35
[2016-10-31 17:25] LABS: Basophils # (A) 0.1 k/uL (0-0.2); Basophils % (A) 1 %; CH 27.2; CHCM 30.8; Eosinophils # (A) 0.1 k/uL (0-0.7); Eosinophils % (A) 1 %; HCT 42.4 % (34.0-46.0); HDW 3.03; HGB 12.5 gm/dL (11.4-16.0); Hypochromasia Moderate; Luc # (Auto) 0.28; Luc % (Auto) 2; Lymphocytes # (A) 1.6 k/uL (1.0-4.8); Lymphocytes % (A) 11 %; MCHC 29.5 g/dL (31.0-37.0); MCV 88.4 fL (80.0-100.0); Mean Platelet Volume 6.9; Monocytes # (A) 0.3 k/uL (0-1.0); Monocytes % (A) 2 %; Neutrophils # (A) 11.6 k/uL (1.3-7.7); Neutrophils % (A) 83 %; RBC 4.79 m/uL (3.80-5.40); RDW 15.9 % (11.5-15.5); WBC 13.9 k/uL (3.8-10.6)
[2016-10-31 17:35] LABS: ALT 24 U/L (9-52); AST 17 U/L (14-36); Alkaline Phosphatase 87 U/L (38-126); Blood Urea Nitrogen 17 mg/dL (7-17); Calcium 10.1 mg/dL (8.4-10.2); Chloride 94 mmol/L (98-107); Glucose 85 mg/dL (74-99); Non-African American GFR(MDRD) >60 (>60 ml/min/1.73 sqM); Partial Thromboplastin Time 21.7 sec (22.0-30.0); Prothrombin Time 9.9 sec (9.0-12.0); Sodium 141 mmol/L (137-145); Total Bilirubin 0.4 mg/dL (0.2-1.3)
[2016-10-31 17:42] LABS: Anion Gap 7 mmol/L
[2016-10-31 17:49] LABS: Carbon Dioxide 40 mmol/L (22-30)
[2016-10-31 17:55] LABS: Creatine Kinase 37 U/L (30-135)
--- NOTE | 2016-10-31 18:02 | XR ---
EXAMINATION TYPE: XR chest 2V DATE OF EXAM: 10/31/2016 5:52 PM COMPARISON: Chest x-ray September 13, 2016. HISTORY: History of asthma and COPD presents with shortness of breath TECHNIQUE: Frontal and lateral views of the chest are obtained. FINDINGS: Underlying emphysematous change is felt present. There is no focal air space opacity, pleu ral effusion, or pneumothorax seen. The cardiac silhouette size is within normal limits. The osseo us structures are intact. IMPRESSION: Chronic emphysematous change without acute pulmonary process. No significant change from prior.
[2016-10-31 18:06] LABS: Troponin I <0.012 ng/mL (0.000-0.034)
[2016-10-31] MEDS ORDERED: ACETAMINOPHEN TAB 325 MG TAB PO STA (19:30)
[2016-10-31] MEDS: HYDROcodone/APAP 10-325MG 1 EACH TAB PO PRN (21:15)
[2016-10-31] MEDS ORDERED: IPRATROPIUM-ALBUTEROL 3 ML NEB INHALATION PRN (21:39)
[2016-10-31] MEDS: IPRATROPIUM-ALBUTEROL 3 ML NEB INHALATION PRN (22:52)
[2016-10-31] MEDS: SYMBICORT 160-4.5 MCG INHALER INHALATION SCH (22:58)
[2016-10-31] MEDS: buPROPion SR 150 MG TABLET.ER PO SCH (23:15)
[2016-10-31] MEDS: ASPIRIN 325 MG TAB PO SCH (23:15)
[2016-10-31] MEDS: traZODone HCL 100 MG TAB PO SCH (23:16)
[2016-10-31] MEDS: PREGABALIN 100 MG CAP PO SCH (23:16)
[2016-10-31] MEDS: risperiDONE 1 MG TAB PO SCH (23:16)
[2016-10-31] MEDS: PANTOPRAZOLE 40 MG TABLET PO SCH (23:16)
[2016-10-31] MEDS: THEOPHYLLINE 24 HOUR 300 MG CAP.ER.24H PO SCH (23:17)
[2016-10-31] MEDS: NYSTATIN 100,000 UNIT/ML SUSP 500,000 UNIT/5 ML CUP PO SCH (23:21)
[2016-10-31] MEDS: methylPREDNISolone SOD SUCCI 125 MG/2 ML VIAL IV SCH (23:24)
[2016-10-31] MEDS: INSULIN LISPRO (humaLOG) 300 UNIT/3 ML VIAL SQ SCH (23:30)
[2016-10-31 23:31] LABS: Glucose,Whole Blood 195 mg/dL (75-99)
[2016-11-01] MEDS: IPRATROPIUM-ALBUTEROL 3 ML NEB INHALATION PRN ×6 (03:46→23:59)
[2016-11-01] MEDS: methylPREDNISolone SOD SUCCI 125 MG/2 ML VIAL IV SCH ×4 (06:20→23:03)
[2016-11-01] MEDS: HYDROcodone/APAP 10-325MG 1 EACH TAB PO PRN ×3 (06:23→23:03)
[2016-11-01] MEDS: SYMBICORT 160-4.5 MCG INHALER INHALATION SCH (06:53)
[2016-11-01 07:10] LABS: Glucose,Whole Blood 129 mg/dL (75-99)
[2016-11-01] MEDS: INSULIN LISPRO (humaLOG) 300 UNIT/3 ML VIAL SQ SCH ×4 (07:47→21:39)
[2016-11-01] MEDS: PANTOPRAZOLE 40 MG TABLET PO SCH ×2 (09:47→21:36)
[2016-11-01] MEDS: NYSTATIN 100,000 UNIT/ML SUSP 500,000 UNIT/5 ML CUP PO SCH ×4 (09:47→21:35)
[2016-11-01] MEDS: PREGABALIN 100 MG CAP PO SCH ×2 (09:49→21:36)
[2016-11-01] MEDS: THEOPHYLLINE 24 HOUR 300 MG CAP.ER.24H PO SCH ×2 (09:49→21:36)
[2016-11-01] MEDS: ALPRAZolam 0.25 MG TAB PO PRN ×2 (09:54→18:37)
[2016-11-01 10:44] LABS: Hemoglobin A1C 6.5 % (4.2-6.1)
[2016-11-01] MEDS ORDERED: TEMAZEPAM 15 MG CAP PO PRN (11:53)
[2016-11-01] MEDS ORDERED: NICOTINE 14MG/24HR PATCH TRANSDERM SCH (12:00)
[2016-11-01 12:16] LABS: Glucose,Whole Blood 134 mg/dL (75-99)
[2016-11-01] MEDS: HEPARIN SODIUM,PORCINE 5,000 UNIT/ML 1 ML VIAL SQ SCH ×2 (12:22→21:36)
[2016-11-01] MEDS: MULTIVITAMINS, THERA 1 EACH TAB PO SCH (12:22)
--- NOTE | 2016-11-01 14:51 | P.CNPUL ---
History of Present Illness Consult date: 11/01/16 Reason for consult: COPD History of present illness: 46-year-old female patient with end-stage COPD, coming in for another COPD exacerbation. The patient has had multiple hospitalizations in the past for COPD exacerbation. She is a chronic smoker. She smokes about 4-6 cigarettes on a daily basis. She is often dependent all times. She has had previous MRSA pneumonia and there most recent sputum analysis showed strep pneumo. The patient came in for increased dyspnea cough chest tightness and wheezing and is a typical has position for him. In the past she has been supported with noninvasive positive pressure ventilation however during this current admission this was not utilized. Her baseline FEV1 is noted of 27% of predicted. No nausea. No vomiting. No altered mentation. She is cachectic and malnourished and in a very poor baseline performance and functional status. In terms of her COPD, the patient is demented on accommodation Spiriva and Symbicort as maintenance inhalers. Review of Systems Impaired performance and functional status secondary to above-mentioned comorbidities. Past Medical History Past Medical History: Asthma, Cancer, Chest Pain / Angina, COPD, GERD/Reflux, Hyperlipidemia, Osteoarthritis (OA) Additional Past Medical History / Comment(s): COPD which is been end-stage with frequent hospitalization for acute COPD exacerbation. The patient has chronic hypoxic and hypercapnic respiratory failure. 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, cervical and lumbar spine spondylosis, chronic migraines, peptic ulcer disease/gastric ulcers, carpal tunnel disease bilaterally, herniated disc at level of C5-C6 and C7, cervical cancer, depression, cachexia and malnourishment and significant loss and total body protein mass Last Myocardial Infarction Date:: UNK History of Any Multi-Drug Resistant Organisms: MRSA Date of last positivie culture/infection: 06/18/2015 MDRO Source:: SPUTUM Past Surgical History: Section, Cholecystectomy, Hysterectomy, Tubal Ligation Additional Past Surgical History / Comment(s): x 2, colonoscopy with benign polypectomy. Past Anesthesia/Blood Transfusion Reactions: No Reported Reaction Additional Past Anesthesia/Blood Transfusion Reaction / Comment(s): Pt has never recieved blood. Past Psychological History: Anxiety, Bipolar, Depression Additional Psychological History / Comment(s): Pt resides with her son jessica. She performs her own ADLs. She has home O2 at 5 L/[place] ATC. She does not drive but her son takes her places. she uses a walker as needed. Per her old medical record dated 07/06/14 pt was seen in [facility] ER for suicide attempt and admitted to psych. Relates that she is an ongoing tobacco smoker-smokes 3 CIG/ DAY. She does not have experience. She has no international travels. Smoking Status: Former smoker Past Alcohol Use History: None Reported Additional Past Alcohol Use History / Comment(s): ADMITS TO SMOKING 3 CIG PER DAY. Past Drug Use History: Marijuana Additional Drug Use History / Comment(s): OCC MARIJUANA USE - Past Family History Father Family Medical History: No Reported History Additional Family Medical History / Comment(s): WAS AN ALCOHOLIC Mother Family Medical History: Cancer Additional Family Medical History / Comment(s): AT AGE 54-BOWEL CANCER Medications and Allergies Home Medications Medication Instructions Recorded Confirmed Type Albuterol Inhaler [Ventolin Hfa 2 puff INHALATION RT-Q6H PRN 01/03/14 10/31/16 History Inhaler] Omeprazole [PriLOSEC] 40 mg PO BID 01/03/14 10/31/16 History Multivitamins, Thera [Multivitamin] 1 tab PO DAILY 12/24/14 10/31/16 History risperiDONE 3 mg PO HS 12/24/14 10/31/16 History traZODone HCL 300 mg PO HS 12/24/14 10/31/16 History buPROPion SR [Wellbutrin SR] 150 mg PO HS 04/30/15 10/31/16 History Albuterol Nebulized [Ventolin 2.5 mg INHALATION RT-Q4H 03/24/16 10/31/16 History Nebulized] Aspirin [Aspirin EC] 325 mg PO HS 03/24/16 10/31/16 History Ipratropium [place] [Atrovent Hfa] 2 puff INHALATION RT-QID 07/07/16 10/31/16 History HYDROcodone/APAP 10-325MG [[place] 1 tab PO TID PRN 07/08/16 10/31/16 History 10-325] rOPINIRole HCL 0.5 mg PO HS 07/18/16 10/31/16 History Pregabalin [Lyrica] 100 mg PO BID 10/31/16 10/31/16 History Allergies Allergy/AdvReac Type Severity Reaction Status Date / Time aripiprazole [From Abilify] Allergy Rash/Hives Verified 10/31/16 17:30 honey Allergy Rash/Hives Verified 10/31/16 17:30 methadone [Methadone] Allergy Itching Verified 10/31/16 17:30 naproxen Allergy Rash/Hives Verified 10/31/16 17:30 sulfamethoxazole Allergy Rash/Hives Verified 10/31/16 17:30 [From Bactrim] tetracycline [Tetracycline] Allergy Rash/Hives Verified 10/31/16 17:30 trimethoprim [From Bactrim] Allergy Rash/Hives Verified 10/31/16 17:30 adhesive tape AdvReac Rash/Hives Verified 10/31/16 17:30 codeine AdvReac Abdominal Verified 10/31/16 17:30 Pain ketorolac tromethamine AdvReac Vomiting Verified 10/31/16 17:30 [From Toradol] pregabalin [From Lyrica] AdvReac Unknown Verified 10/31/16 17:30 tramadol HCl [From Ultram] AdvReac SEIZURES Verified 10/31/16 17:30 tromethamine AdvReac Nausea & Verified 10/31/16 17:30 Vomiting Physical Exam Vitals: Vital Signs Temp Pulse Pulse Resp BP BP Pulse Ox 11/01/16 11:15 104 H 11/01/16 11:02 100 11/01/16 07:09 112 H 11/01/16 07:00 97.7 F 96 20 114/72 93 L 11/01/16 06:54 116 H 11/01/16 03:51 80 11/01/16 03:40 88 10/31/16 23:00 97.0 F L 87 20 119/77 98 10/31/16 22:54 80 10/31/16 22:44 80 10/31/16 20:02 74 22 129/84 96 Intake and Output 10/31/16 11/01/16 11/01/16 22:59 06:59 14:59 Other: Voiding Method Toilet # Voids 1 1 1 # Bowel Movements 0 Thin and frail and cachectic. Mild degree of respirator distress. Not using accessory muscles of breathing.Head exam was generally normal. There was no scleral icterus or corneal arcus. Mucous membranes were moist.Neck was supple and without jugular venous distension, thyromegaly, or carotid bruits. Carotids were easily palpable bilaterally. There was no adenopathy. Lung sounds are markedly diminished bilaterally along with scattered external wheezes throughout the lung cagle.Cardiac exam revealed the PMI to be normally situated and sized. The rhythm was regular and no extrasystoles were noted during several minutes of auscultation. The first and second heart sounds were normal and physiologic splitting of the second heart sound was noted. There were no murmurs, rubs, clicks, or gallops.Abdominal exam revealed normal bowel sounds. The abdomen was soft, non-tender, and without masses, organomegaly, or appreciable enlargement of the abdominal aorta.Examination of the extremities revealed easily palpable radial, femoral and pedal pulses. There was no cyanosis , clubbing or edema. Results - Laboratory Findings CBC and BMP: 10/31/16 17:12 10/31/16 17:12 PT/INR, D-dimer PT 9.9 sec (9.0-12.0) 10/31/16 17:12 INR 1.0 (<1.1) 10/31/16 17:12 Abnormal lab findings: Abnormal Labs 10/31/16 11/01/16 11/01/16 23:29 07:08 12:14 POC Glucose (mg/dL) 195 H 129 H 134 H - Diagnostic Findings Chest x-ray: image reviewed Assessment and Plan Plan: Assessment 1 acute COPD exacerbation 2 advanced end-stage COPD with a baseline FEV1 of 27% of predicted 3 chronic hypoxic and hypercapnic respiratory failure 4 chronic steroid dependence secondary to recurrent exacerbation of COPD 5 cachectic/catabolic state secondary to advanced COPD 6 nicotine addiction/smoking 7 cervical cancer 8 cervical spondylosis with lumbar spine spondylosis 9 peptic ulcer disease 10 remote history of MRSA pneumonia Plan On the current treatment. Unfortunately the prognosis poor baseline above- mentioned medical fuzzing comorbidities and advanced lung disease. We'll continue to follow. Smoking cessation counseling was done. Continue bronchial dilators. Continue steroids. Use noninvasive positive pressure ventilation if her condition gets worse.
[2016-11-01 17:17] LABS: Glucose,Whole Blood 216 mg/dL (75-99)
--- NOTE | 2016-11-01 20:01 | HP ---
DATE OF ADMISSION: 10/31/2016 CHIEF COMPLAINTS: Shortness of breath and cough and sputum. HISTORY OF PRESENT ILLNESS: This 46-year-old woman with a past medical history of multiple medical problems, including asthma, COPD, history of GERD, hypertension, hyperlipidemia, history of end-stage COPD, history of chronic respiratory failure, on 5 L nasal cannula with FEV1 of 27% of predicted, history of DJD, history of MRSA, cholecystectomy, being followed by Dr. Italo John in the outpatient setting, still continues to smoke. The patient reports that she only smokes about 3 to 4 cigarettes per day. The patient had increasing shortness of breath, cough and sputum for the last 2 days, and the patient came to [facility] Emergency Room and was admitted for further evaluation and treatment. Patient is receiving multiple bronchodilators. The patient is extremely short of breath with significant reduction in the lung volume and the breath sounds. Otherwise, chest x-ray did not show any acute abnormality, indicating a pneumonia at this time. PAST MEDICAL HISTORY: 1. History of COPD. 2. History of chronic hypoxic respiratory failure. 3. History of GERD. 4. Hyperlipidemia. 5. History of DJD. 6. History of MRSA. 7. History of anxiety, bipolar, depression. HOME MEDICATIONS: 1. Trazodone 300 mg p.o. at bedtime. 2. Risperdal 3 mg p.o. at bedtime. 3. Requip 0.5 mg p.o. at bedtime. 4. Wellbutrin SR 150 mg p.o. at bedtime. 5. Akhil-24 300 mg p.o. b.i.d. 6. Lyrica 100 mg p.o. b.i.d. 7. Prilosec 40 mg p.o. b.i.d. 8. Mycostatin 500,000 p.o. daily. 9. Multivitamins 1 p.o. daily. 10. Atrovent HFA 2 puffs q.i.d. 11. [place] 1 tablet t.i.d. p.r.n. 12. Symbicort 160/4.5 two puffs b.i.d. 13. Ecotrin 325 mg at bedtime. 14. Ventolin 2.5 q.4. 15. Ventolin HFA 2 puffs q.6 p.r.n. 16. Xanax 0.25 t.i.d. p.r.n. ALLERGIES: 1. ABILIFY. 2. HONEY. 3. METHADONE. 4. NAPROSYN. 5. BACTRIM. 6. TETRACYCLINE. 7. TRIMETHOPRIM. 8. ADHESIVE TAPES. 9. CODEINE. 10. TORADOL. 11. LYRICA. 12. ULTRAM. 13. TROMETHAMINE. FAMILY HISTORY: History of alcoholism in the family. No history of stroke or heart disease in the family. SOCIAL HISTORY: History of smoking, as mentioned. History of THC. REVIEW OF SYSTEMS: ENT: Diminishing hearing. Diminished vision. CARDIOVASCULAR: As mentioned earlier. RESPIRATORY: As mentioned earlier. GI: No nausea. : No dysuria. NERVOUS SYSTEM: As mentioned earlier. ALLERGY/IMMUNOLOGY: As mentioned earlier. HEMATOLOGY/ONCOLOGY: No history of anemia. ENDOCRINE: As mentioned earlier. CONSTITUTIONAL: As mentioned earlier. DERMATOLOGY: Negative. RHEUMATOLOGY: Negative. PSYCHIATRY: As mentioned earlier. NEUROLOGY: As mentioned earlier. PHYSICAL EXAMINATION: Alert and oriented x3. Pulse 96, blood pressure 114/72, respiration 20, temperature 97.7, pulse ox 93% on 5 L. Pulse ox was 84% on 5 L on admission. HEENT: Conjunctivae normal. Oral mucosa moist. NECK: No jugular venous distention. No carotid bruit. No lymph node enlargement. CARDIOVASCULAR SYSTEM: S1, S2 muffled. No S3. No S4. RESPIRATORY SYSTEM: Breathing efforts are markedly increased, as mentioned, with chest emphysematous. Bilateral scattered rhonchi and extensive wheezing also present. Expiratory prolongation of the breath sounds also present. No bronchial breath sounds. A few crackles are heard posteriorly. ABDOMEN: Soft, nontender. No mass palpable. No hepatosplenomegaly. LEGS: No edema. No swelling. Pulses felt normally. NERVOUS SYSTEM: Higher functions as mentioned earlier. Moves all 4 limbs. No focal motor or sensory deficit. LYMPHATICS: No lymph node palpable in neck, axillae or groin. SKIN: No ulcer, rash, bleeding. Labs at this time show WBC 13.9, hemoglobin 12.5, platelets 690. CO2 is 40. Creatinine 0.37. Glucose 195. Hemoglobin A1c is 6.5. CK-MB is 3. ASSESSMENT: 1. Chronic obstructive pulmonary disease, asthma, acute exacerbation, with acute purulent tracheobronchitis with acute hypoxic respiratory failure, present on admission. 2. Chronic hypoxic hypercarbic respiratory failure, on 5 liters nasal cannula at home. 3. Increased white count. 4. Increased platelets. 5. Increased carbon dioxide. 6. Moderate to severe protein-calorie malnutrition with a body mass index of 17.2. 7. History of gastroesophageal reflux disease. 8. Hyperlipidemia. 9. History of degenerative joint disease. 10. History of chronic migraines. 11. History of peptic ulcer disease. 12. History of cervical cancer. 13. Methicillin-resistant Staphylococcus aureus. 14. History of cholecystectomy. 15. Anxiety, bipolar, depression. 16. History of tetrahydrocannabinol. 17. FULL CODE. RECOMMENDATIONS AND DISCUSSION: In this 47-year-old woman who presented with multiple complex medical issues, we will monitor the patient closely, continue the current medication, continue with symptomatic treatment. We will initiate intensive bronchodilatory treatment and smoking cessation. Empiric antibiotics. Rocephin has been initiated. DVT prophylaxis. Resume the home medications. Symptomatic treatment will be provided. Prognosis guarded because of multiple complex medical issues. Will also Dr. Molina's group to evaluate. Otherwise, Dr. John and Yanci will follow the patient tomorrow.
[2016-11-01] MEDS: FORMOTEROL FUMARATE 20 MCG/2 ML NEBU INHALATION SCH (20:45)
[2016-11-01] MEDS: BUDESONIDE 1 MG/2 ML NEBU INHALATION SCH (20:45)
[2016-11-01 20:47] LABS: Glucose,Whole Blood 143 mg/dL (75-99)
[2016-11-01] MEDS: risperiDONE 1 MG TAB PO SCH (21:36)
[2016-11-01] MEDS: buPROPion SR 150 MG TABLET.ER PO SCH (21:36)
[2016-11-01] MEDS: traZODone HCL 100 MG TAB PO SCH (21:36)
[2016-11-01] MEDS: ASPIRIN 325 MG TAB PO SCH (21:36)
[2016-11-02] MEDS: IPRATROPIUM-ALBUTEROL 3 ML NEB INHALATION PRN ×6 (04:03→23:54)
[2016-11-02] MEDS: methylPREDNISolone SOD SUCCI 125 MG/2 ML VIAL IV SCH ×4 (05:39→23:41)
[2016-11-02] MEDS: HYDROcodone/APAP 10-325MG 1 EACH TAB PO PRN ×2 (06:40→23:50)
[2016-11-02 06:59] LABS: Glucose,Whole Blood 134 mg/dL (75-99)
[2016-11-02] MEDS: FORMOTEROL FUMARATE 20 MCG/2 ML NEBU INHALATION SCH ×2 (07:59→20:04)
[2016-11-02] MEDS: BUDESONIDE 1 MG/2 ML NEBU INHALATION SCH ×2 (07:59→20:04)
[2016-11-02] MEDS: ALPRAZolam 0.25 MG TAB PO PRN ×2 (08:14→16:40)
[2016-11-02] MEDS: HEPARIN SODIUM,PORCINE 5,000 UNIT/ML 1 ML VIAL SQ SCH ×2 (08:15→20:41)
[2016-11-02] MEDS: THEOPHYLLINE 24 HOUR 300 MG CAP.ER.24H PO SCH ×2 (08:15→20:42)
[2016-11-02] MEDS: NYSTATIN 100,000 UNIT/ML SUSP 500,000 UNIT/5 ML CUP PO SCH ×4 (08:15→20:42)
[2016-11-02] MEDS: PREGABALIN 100 MG CAP PO SCH ×2 (08:16→20:41)
[2016-11-02] MEDS: PANTOPRAZOLE 40 MG TABLET PO SCH ×2 (08:16→20:41)
[2016-11-02] MEDS: INSULIN LISPRO (humaLOG) 300 UNIT/3 ML VIAL SQ SCH ×4 (08:16→22:04)
[2016-11-02 09:28] LABS: Anion Gap 5 mmol/L; Blood Urea Nitrogen 29 mg/dL (7-17); Calcium 9.6 mg/dL (8.4-10.2); Carbon Dioxide 35 mmol/L (22-30); Chloride 97 mmol/L (98-107); Glucose 150 mg/dL (74-99); Non-African American GFR(MDRD) >60 (>60 ml/min/1.73 sqM); Potassium 5.1 mmol/L (3.5-5.1); Sodium 137 mmol/L (137-145)
[2016-11-02 09:40] LABS: Basophils % (A) 0 %; CH 26.7; CHCM 29.9; Eosinophils % (A) 0 %; HCT 39.3 % (34.0-46.0); HDW 2.94; HGB 11.6 gm/dL (11.4-16.0); Hypochromasia Marked; Luc # (Auto) 0.12; Luc % (Auto) 1; Lymphocytes % (A) 8 %; MCH 26.3 pg (25.0-35.0); MCHC 29.4 g/dL (31.0-37.0); MCV 89.4 fL (80.0-100.0); Mean Platelet Volume 6.6; Monocytes # (A) 0.4 k/uL (0-1.0); Monocytes % (A) 3 %; Neutrophils # (A) 10.7 k/uL (1.3-7.7); Neutrophils % (A) 88 %; RDW 15.7 % (11.5-15.5); WBC 12.1 k/uL (3.8-10.6)
--- NOTE | 2016-11-02 11:19 | P.PN ---
Subjective Patient resting in bed found to be anxious with rapid respirations. Patient states she has pain with inspiration. Patient continues with pulmonary consultation Objective - Vital Signs Vital signs: Vital Signs Temp 97.6 F 11/02/16 07:00 Pulse 80 11/02/16 08:27 Resp 18 11/02/16 08:00 BP 130/73 11/02/16 07:00 Pulse Ox 93 L 11/02/16 07:00 Intake & Output 11/01/16 11/02/16 11/02/16 18:59 06:59 18:59 Intake Total 500 200 Balance 500 200 Intake: Oral 500 200 Other: Voiding Method Toilet Toilet # Voids 3 3 - Constitutional General appearance: Present: thin - EENT Eyes: Present: PERRLA Ears: bilateral: normal - Neck Neck: Present: normal ROM - Respiratory Respiratory: bilateral: diminished - Cardiovascular Rhythm: regular - Gastrointestinal General gastrointestinal: Present: soft - Integumentary Integumentary: Present: flushed - Neurologic Neurologic: Present: CNII-XII intact - Musculoskeletal Musculoskeletal: Present: generalized weakness - Psychiatric Psychiatric Comment(s): Patient anxious Psychiatric: Present: A&O x's 3, appropriate affect, intact judgment & insight - Labs CBC & Chem 7: 11/02/16 08:11 11/02/16 08:11 Labs: Abnormal Lab Results - Last 24 Hours (Table) 11/01/16 11/01/16 11/01/16 Range/Units 12:14 17:15 20:44 WBC (3.8-10.6) k/uL MCHC (31.0-37.0) g/dL RDW (11.5-15.5) % Plt Count (150-450) k/uL Neutrophils # (1.3-7.7) k/uL Chloride (98-107) mmol/L Carbon Dioxide (22-30) mmol/L BUN (7-17) mg/dL Creatinine (0.52-1.04) mg/dL Glucose (74-99) mg/dL POC Glucose (mg/dL) 134 H 216 H 143 H (75-99) mg/dL 11/02/16 11/02/16 11/02/16 Range/Units 06:48 08:11 08:11 WBC 12.1 H (3.8-10.6) k/uL MCHC 29.4 L (31.0-37.0) g/dL RDW 15.7 H (11.5-15.5) % Plt Count 653 H (150-450) k/uL Neutrophils # 10.7 H (1.3-7.7) k/uL Chloride 97 L (98-107) mmol/L Carbon Dioxide 35 H (22-30) mmol/L BUN 29 H (7-17) mg/dL Creatinine 0.42 L (0.52-1.04) mg/dL Glucose 150 H (74-99) mg/dL POC Glucose (mg/dL) 134 H (75-99) mg/dL - Imaging and Cardiology Chest x-ray: report reviewed Assessment and Plan Plan: Assessment Chronic obstructive pulmonary disease asthma acute exacerbation with acute hypoxic respiratory failure end-stage FEV1 27% Chronic hypoxic hypercapnic arrest or a failure on 5 L of oxygen at home Moderate to severe protein calorie malnutrition with body mass index of 17.2 History of GERD Hyperlipidemia History of degenerative joint disease chronic pain with opioid dependence History of chronic migraines MRSA history Anxiety/bipolar/depression Nicotine dependence currently smoking Plan Continue consultation with her Dr. Molina
[2016-11-02 12:13] LABS: Glucose,Whole Blood 125 mg/dL (75-99)
[2016-11-02] MEDS: HYDROmorphone 1 MG/ML 1 ML SYRINGE IVP PRN ×2 (13:23→20:37)
[2016-11-02] MEDS: MULTIVITAMINS, THERA 1 EACH TAB PO SCH (13:25)
--- NOTE | 2016-11-02 14:10 | P.PN ---
Subjective Principal diagnosis: 46-year-old female patient with end-stage COPD, coming in for another COPD exacerbation. The patient has had multiple hospitalizations in the past for COPD exacerbation. She is a chronic smoker. She smokes about 4-6 cigarettes on a daily basis. She is often dependent all times. She has had previous MRSA pneumonia and there most recent sputum analysis showed strep pneumo. The patient came in for increased dyspnea cough chest tightness and wheezing and is a typical has position for him. In the past she has been supported with noninvasive positive pressure ventilation however during this current admission this was not utilized. Her baseline FEV1 is noted of 27% of predicted. No nausea. No vomiting. No altered mentation. She is cachectic and malnourished and in a very poor baseline performance and functional status. In terms of her COPD, the patient is demented on accommodation Spiriva and Symbicort as maintenance inhalers. The patient is seen again today 11/02/2016 in follow-up on the regular medical floor. She is awake and alert in no acute distress. She states her breathing is about the same as compared to yesterday not really better but not much worse. Her main complaint is that of right-sided chest wall and rib pain from coughing. She is requesting increase in her pain medications. She continues to maintain O2 saturations in the low 90s on 5 L/m per nasal cannula. She's been afebrile. She is quite dyspneic on minimal exertion even in conversation. Objective - Vital Signs Vital signs: Vital Signs Temp 97.6 F 11/02/16 07:00 Pulse 82 11/02/16 12:02 Resp 18 11/02/16 08:00 BP 130/73 11/02/16 07:00 Pulse Ox 93 L 11/02/16 07:00 Intake & Output 11/01/16 11/02/16 11/02/16 18:59 06:59 18:59 Intake Total 500 200 Balance 500 200 Intake: Oral 500 200 Other: Voiding Method Toilet Toilet # Voids 3 3 - Exam Thin and frail and cachectic. Mild degree of respiratory distress. Not using accessory muscles of breathing. Head exam was generally normal. There was no scleral icterus or corneal arcus. Mucous membranes were moist.Neck was supple and without jugular venous distension, thyromegaly, or carotid bruits. Carotids were easily palpable bilaterally. There was no adenopathy. Lung sounds are markedly diminished bilaterally along with scattered external wheezes throughout the lung cagle.Cardiac exam revealed the PMI to be normally situated and sized. The rhythm was regular and no extrasystoles were noted during several minutes of auscultation. The first and second heart sounds were normal and physiologic splitting of the second heart sound was noted. There were no murmurs, rubs, clicks, or gallops.Abdominal exam revealed normal bowel sounds. The abdomen was soft, non-tender, and without masses, organomegaly, or appreciable enlargement of the abdominal aorta.Examination of the extremities revealed easily palpable radial, femoral and pedal pulses. There was no cyanosis , clubbing or edema. - Labs CBC & Chem 7: 11/02/16 08:11 11/02/16 08:11 Labs: Abnormal Lab Results - Last 24 Hours (Table) 11/01/16 11/01/16 11/02/16 Range/Units 17:15 20:44 06:48 WBC (3.8-10.6) k/uL MCHC (31.0-37.0) g/dL RDW (11.5-15.5) % Plt Count (150-450) k/uL Neutrophils # (1.3-7.7) k/uL Chloride (98-107) mmol/L Carbon Dioxide (22-30) mmol/L BUN (7-17) mg/dL Creatinine (0.52-1.04) mg/dL Glucose (74-99) mg/dL POC Glucose (mg/dL) 216 H 143 H 134 H (75-99) mg/dL 11/02/16 11/02/16 11/02/16 Range/Units 08:11 08:11 12:10 WBC 12.1 H (3.8-10.6) k/uL MCHC 29.4 L (31.0-37.0) g/dL RDW 15.7 H (11.5-15.5) % Plt Count 653 H (150-450) k/uL Neutrophils # 10.7 H (1.3-7.7) k/uL Chloride 97 L (98-107) mmol/L Carbon Dioxide 35 H (22-30) mmol/L BUN 29 H (7-17) mg/dL Creatinine 0.42 L (0.52-1.04) mg/dL Glucose 150 H (74-99) mg/dL POC Glucose (mg/dL) 125 H (75-99) mg/dL Assessment and Plan Plan: Assessment 1 acute COPD exacerbation 2 advanced end-stage COPD with a baseline FEV1 of 27% of predicted 3 chronic hypoxic and hypercapnic respiratory failure 4 chronic steroid dependence secondary to recurrent exacerbation of COPD 5 cachectic/catabolic state secondary to advanced COPD 6 nicotine addiction/smoking 7 cervical cancer 8 cervical spondylosis with lumbar spine spondylosis 9 peptic ulcer disease 10 remote history of MRSA pneumonia Plan: The patient was seen and evaluated by Dr. Molina. She is doing about the same as far as her COPD exacerbation is concerned. We'll continue with her current medications. She is again educated regarding the importance of complete smoking cessation. Her overall prognosis remains quite guarded based on the above-mentioned multiple comorbidities. If needed will place her on BiPAP but for now she is maintaining O2 saturations in the 90s on 5 L/m per nasal cannula. We will gradually increase her activity as tolerated. We'll continue to follow and make further recommendations based on her clinical status.
[2016-11-02 17:22] LABS: Glucose,Whole Blood 148 mg/dL (75-99)
[2016-11-02] MEDS: ASPIRIN 325 MG TAB PO SCH (20:40)
[2016-11-02] MEDS: risperiDONE 1 MG TAB PO SCH (20:41)
[2016-11-02] MEDS: buPROPion SR 150 MG TABLET.ER PO SCH (20:41)
[2016-11-02] MEDS: traZODone HCL 100 MG TAB PO SCH (20:42)
[2016-11-02 21:23] LABS: Glucose,Whole Blood 200 mg/dL (75-99)
[2016-11-03] MEDS: HYDROmorphone 1 MG/ML 1 ML SYRINGE IVP PRN ×4 (03:43→21:45)
[2016-11-03] MEDS: IPRATROPIUM-ALBUTEROL 3 ML NEB INHALATION PRN ×5 (03:44→20:01)
[2016-11-03] MEDS: methylPREDNISolone SOD SUCCI 125 MG/2 ML VIAL IV SCH ×4 (05:12→23:08)
[2016-11-03] MEDS: ALPRAZolam 0.25 MG TAB PO PRN ×3 (06:34→23:07)
[2016-11-03 07:15] LABS: Glucose,Whole Blood 133 mg/dL (75-99)
[2016-11-03] MEDS: INSULIN LISPRO (humaLOG) 300 UNIT/3 ML VIAL SQ SCH ×4 (07:56→21:48)
[2016-11-03] MEDS: FORMOTEROL FUMARATE 20 MCG/2 ML NEBU INHALATION SCH ×2 (07:56→20:01)
[2016-11-03] MEDS: PANTOPRAZOLE 40 MG TABLET PO SCH ×2 (07:56→21:48)
[2016-11-03] MEDS: BUDESONIDE 1 MG/2 ML NEBU INHALATION SCH ×2 (07:56→20:01)
[2016-11-03] MEDS: NYSTATIN 100,000 UNIT/ML SUSP 500,000 UNIT/5 ML CUP PO SCH ×4 (07:56→21:50)
[2016-11-03] MEDS: THEOPHYLLINE 24 HOUR 300 MG CAP.ER.24H PO SCH ×2 (07:57→21:50)
[2016-11-03] MEDS: HEPARIN SODIUM,PORCINE 5,000 UNIT/ML 1 ML VIAL SQ SCH ×2 (07:58→21:47)
[2016-11-03] MEDS: PREGABALIN 100 MG CAP PO SCH ×2 (07:59→21:49)
[2016-11-03] MEDS: HYDROcodone/APAP 10-325MG 1 EACH TAB PO PRN ×3 (09:03→23:07)
[2016-11-03 09:04] LABS: Basophils % (A) 0 %; CHCM 30.7; Eosinophils % (A) 0 %; HCT 41.5 % (34.0-46.0); HDW 2.94; HGB 12.1 gm/dL (11.4-16.0); Hypochromasia Moderate; Luc # (Auto) 0.16; Luc % (Auto) 1; Lymphocytes # (A) 0.9 k/uL (1.0-4.8); Lymphocytes % (A) 7 %; MCH 25.8 pg (25.0-35.0); MCHC 29.2 g/dL (31.0-37.0); MCV 88.4 fL (80.0-100.0); Mean Platelet Volume 7.1; Monocytes # (A) 0.2 k/uL (0-1.0); Monocytes % (A) 2 %; Neutrophils # (A) 11.6 k/uL (1.3-7.7); Neutrophils % (A) 90 %; RBC 4.69 m/uL (3.80-5.40); RDW 15.6 % (11.5-15.5); WBC (Perox) 13.06
[2016-11-03 09:12] LABS: Anion Gap 11 mmol/L; Blood Urea Nitrogen 29 mg/dL (7-17); Calcium 9.6 mg/dL (8.4-10.2); Carbon Dioxide 30 mmol/L (22-30); Chloride 96 mmol/L (98-107); Glucose 165 mg/dL (74-99); Non-African American GFR(MDRD) >60 (>60 ml/min/1.73 sqM); Potassium 4.9 mmol/L (3.5-5.1); Sodium 137 mmol/L (137-145)
--- NOTE | 2016-11-03 11:35 | P.PN ---
Subjective Patient resting in bed appears less anxious than yesterday states she is improving Objective - Vital Signs Vital signs: Vital Signs Temp 96.9 F L 11/03/16 07:00 Pulse 80 11/03/16 11:25 Resp 18 11/03/16 07:00 BP 138/83 11/03/16 07:00 Pulse Ox 98 11/03/16 07:00 Intake & Output 11/02/16 11/03/16 11/03/16 18:59 06:59 18:59 Intake Total 750 800 Balance 750 800 Intake: Oral 750 800 Other: # Voids 3 3 1 - Constitutional General appearance: Present: thin - EENT Eyes: Present: PERRLA Ears: bilateral: normal - Neck Neck: Present: normal ROM - Respiratory Respiratory: bilateral: diminished - Cardiovascular Rhythm: regular - Gastrointestinal General gastrointestinal: Present: soft - Integumentary Integumentary: Present: normal - Neurologic Neurologic: Present: CNII-XII intact - Musculoskeletal Musculoskeletal: Present: generalized weakness - Psychiatric Psychiatric: Present: A&O x's 3, appropriate affect, intact judgment & insight - Labs CBC & Chem 7: 11/03/16 08:12 11/03/16 08:12 Labs: Abnormal Lab Results - Last 24 Hours (Table) 11/02/16 11/02/16 11/02/16 Range/Units 12:10 17:20 21:20 WBC (3.8-10.6) k/uL MCHC (31.0-37.0) g/dL RDW (11.5-15.5) % Plt Count (150-450) k/uL Neutrophils # (1.3-7.7) k/uL Lymphocytes # (1.0-4.8) k/uL Chloride (98-107) mmol/L BUN (7-17) mg/dL Creatinine (0.52-1.04) mg/dL Glucose (74-99) mg/dL POC Glucose (mg/dL) 125 H 148 H 200 H (75-99) mg/dL 11/03/16 11/03/16 11/03/16 Range/Units 07:11 08:12 08:12 WBC 13.0 H (3.8-10.6) k/uL MCHC 29.2 L (31.0-37.0) g/dL RDW 15.6 H (11.5-15.5) % Plt Count 619 H (150-450) k/uL Neutrophils # 11.6 H (1.3-7.7) k/uL Lymphocytes # 0.9 L (1.0-4.8) k/uL Chloride 96 L (98-107) mmol/L BUN 29 H (7-17) mg/dL Creatinine 0.36 L (0.52-1.04) mg/dL Glucose 165 H (74-99) mg/dL POC Glucose (mg/dL) 133 H (75-99) mg/dL - Imaging and Cardiology Chest x-ray: report reviewed Assessment and Plan Plan: Assessment chronic obstructive pulmonary disease end-stage FEV1 27% acute exacerbation Acute hypoxic respiratory failure chronic hypoxic hyper carpbic respiratory failure on 5 L nasal cannula Elevated white count probable secondary to steroids Moderate to severe protein calorie malnutrition with body mass index is 70.2 History of GERD history of chronic pain degenerative joint disease Hyperlipidemia Chronic migraines History of MRSA Anxiety/bipolar/depression Plan Continue consultation with her Dr. Molina regarding COPD
[2016-11-03 11:50] LABS: Glucose,Whole Blood 156 mg/dL (75-99)
[2016-11-03] MEDS: MULTIVITAMINS, THERA 1 EACH TAB PO SCH (12:29)
--- NOTE | 2016-11-03 16:01 | P.PN ---
Subjective 46-year-old female patient with end-stage COPD, coming in for another COPD exacerbation. The patient has had multiple hospitalizations in the past for COPD exacerbation. She is a chronic smoker. She smokes about 4-6 cigarettes on a daily basis. She is often dependent all times. She has had previous MRSA pneumonia and there most recent sputum analysis showed strep pneumo. The patient came in for increased dyspnea cough chest tightness and wheezing and is a typical has position for him. In the past she has been supported with noninvasive positive pressure ventilation however during this current admission this was not utilized. Her baseline FEV1 is noted of 27% of predicted. No nausea. No vomiting. No altered mentation. She is cachectic and malnourished and in a very poor baseline performance and functional status. In terms of her COPD, the patient is demented on accommodation Spiriva and Symbicort as maintenance inhalers. On 11/03/2016, patient is doing better. She is resting comfortably in bed. Her COPD seems to be improving and she is less spastic and wheezy compared to yesterday. Today she is able to speak up full sentences. No chest pain. No cough or sputum production. No fever or chills. No nausea or vomiting. No abdominal pain. No other complaints otherwise for now. Objective - Vital Signs Vital signs: Vital Signs Temp 98.0 F 11/03/16 15:00 Pulse 88 11/03/16 15:28 Resp 18 11/03/16 15:00 BP 124/84 11/03/16 15:00 Pulse Ox 97 11/03/16 15:00 Intake & Output 11/02/16 11/03/16 11/03/16 18:59 06:59 18:59 Intake Total 750 800 Balance 750 800 Intake: Oral 750 800 Other: Voiding Method Toilet # Voids 3 3 1 - Exam Thin and frail and cachectic. Mild degree of respirator distress. Not using accessory muscles of breathing.Head exam was generally normal. There was no scleral icterus or corneal arcus. Mucous membranes were moist.Neck was supple and without jugular venous distension, thyromegaly, or carotid bruits. Carotids were easily palpable bilaterally. There was no adenopathy. Lung sounds are markedly diminished bilaterally along with scattered external wheezes throughout the lung cagle.Cardiac exam revealed the PMI to be normally situated and sized. The rhythm was regular and no extrasystoles were noted during several minutes of auscultation. The first and second heart sounds were normal and physiologic splitting of the second heart sound was noted. There were no murmurs, rubs, clicks, or gallops.Abdominal exam revealed normal bowel sounds. The abdomen was soft, non-tender, and without masses, organomegaly, or appreciable enlargement of the abdominal aorta.Examination of the extremities revealed easily palpable radial, femoral and pedal pulses. There was no cyanosis , clubbing or edema. - Labs CBC & Chem 7: 11/03/16 08:12 11/03/16 08:12 Labs: Abnormal Lab Results - Last 24 Hours (Table) 11/02/16 11/02/16 11/03/16 Range/Units 17:20 21:20 07:11 WBC (3.8-10.6) k/uL MCHC (31.0-37.0) g/dL RDW (11.5-15.5) % Plt Count (150-450) k/uL Neutrophils # (1.3-7.7) k/uL Lymphocytes # (1.0-4.8) k/uL Chloride (98-107) mmol/L BUN (7-17) mg/dL Creatinine (0.52-1.04) mg/dL Glucose (74-99) mg/dL POC Glucose (mg/dL) 148 H 200 H 133 H (75-99) mg/dL 11/03/16 11/03/16 11/03/16 Range/Units 08:12 08:12 11:48 WBC 13.0 H (3.8-10.6) k/uL MCHC 29.2 L (31.0-37.0) g/dL RDW 15.6 H (11.5-15.5) % Plt Count 619 H (150-450) k/uL Neutrophils # 11.6 H (1.3-7.7) k/uL Lymphocytes # 0.9 L (1.0-4.8) k/uL Chloride 96 L (98-107) mmol/L BUN 29 H (7-17) mg/dL Creatinine 0.36 L (0.52-1.04) mg/dL Glucose 165 H (74-99) mg/dL POC Glucose (mg/dL) 156 H (75-99) mg/dL Assessment and Plan Plan: Assessment 1 acute COPD exacerbation, improving as the patient is being treated with a combination of bronchodilators and systemic steroids. No need for noninvasive positive pressure ventilation or BiPAP therapy for now. 2 advanced end-stage COPD with a baseline FEV1 of 27% of predicted 3 chronic hypoxic and hypercapnic respiratory failure 4 chronic steroid dependence secondary to recurrent exacerbation of COPD 5 cachectic/catabolic state secondary to advanced COPD 6 nicotine addiction/smoking 7 cervical cancer 8 cervical spondylosis with lumbar spine spondylosis 9 peptic ulcer disease 10 remote history of MRSA pneumonia Plan On the current treatment. Likely the patient is improving. We'll continue the high-dose steroids. We'll continue the bronchodilators. We'll make further recommendations based on her overall progress.
[2016-11-03 16:49] LABS: Glucose,Whole Blood 136 mg/dL (75-99)
[2016-11-03 21:01] LABS: Glucose,Whole Blood 202 mg/dL (75-99)
[2016-11-03] MEDS: ASPIRIN 325 MG TAB PO SCH (21:46)
[2016-11-03] MEDS: buPROPion SR 150 MG TABLET.ER PO SCH (21:47)
[2016-11-03] MEDS: risperiDONE 1 MG TAB PO SCH (21:49)
[2016-11-03] MEDS: traZODone HCL 100 MG TAB PO SCH (21:50)
[2016-11-04] MEDS: IPRATROPIUM-ALBUTEROL 3 ML NEB INHALATION PRN ×6 (01:00→19:35)
[2016-11-04] MEDS: HYDROmorphone 1 MG/ML 1 ML SYRINGE IVP PRN ×4 (04:13→22:32)
[2016-11-04] MEDS: methylPREDNISolone SOD SUCCI 125 MG/2 ML VIAL IV SCH ×4 (06:11→23:13)
[2016-11-04] MEDS: FORMOTEROL FUMARATE 20 MCG/2 ML NEBU INHALATION SCH ×2 (07:45→19:35)
[2016-11-04] MEDS: BUDESONIDE 1 MG/2 ML NEBU INHALATION SCH ×2 (07:45→19:35)
[2016-11-04 08:00] LABS: Glucose,Whole Blood 119 mg/dL (75-99)
[2016-11-04] MEDS: INSULIN LISPRO (humaLOG) 300 UNIT/3 ML VIAL SQ SCH ×4 (08:03→21:41)
[2016-11-04] MEDS: HEPARIN SODIUM,PORCINE 5,000 UNIT/ML 1 ML VIAL SQ SCH ×2 (08:12→22:15)
[2016-11-04] MEDS: HYDROcodone/APAP 10-325MG 1 EACH TAB PO PRN ×2 (08:12→18:08)
[2016-11-04] MEDS: NYSTATIN 100,000 UNIT/ML SUSP 500,000 UNIT/5 ML CUP PO SCH ×4 (08:12→22:24)
[2016-11-04] MEDS: PANTOPRAZOLE 40 MG TABLET PO SCH ×2 (08:12→22:13)
[2016-11-04] MEDS: THEOPHYLLINE 24 HOUR 300 MG CAP.ER.24H PO SCH ×2 (08:12→22:13)
[2016-11-04] MEDS: PREGABALIN 100 MG CAP PO SCH ×2 (08:12→22:14)
[2016-11-04] MEDS: ALPRAZolam 0.25 MG TAB PO PRN ×2 (08:16→18:08)
[2016-11-04 10:05] LABS: Anion Gap 10 mmol/L; Basophils % (A) 0 %; Blood Urea Nitrogen 34 mg/dL (7-17); CH 27.2; CHCM 30.7; Calcium 9.6 mg/dL (8.4-10.2); Carbon Dioxide 30 mmol/L (22-30); Chloride 96 mmol/L (98-107); Eosinophils % (A) 0 %; Glucose 193 mg/dL (74-99); HCT 40.8 % (34.0-46.0); HDW 2.95; HGB 12.2 gm/dL (11.4-16.0); Hypochromasia Moderate; Luc # (Auto) 0.14; Luc % (Auto) 1; Lymphocytes # (A) 0.8 k/uL (1.0-4.8); Lymphocytes % (A) 6 %; MCH 26.6 pg (25.0-35.0); MCHC 29.9 g/dL (31.0-37.0); Mean Platelet Volume 7.7; Monocytes # (A) 0.3 k/uL (0-1.0); Monocytes % (A) 3 %; Neutrophils # (A) 11.1 k/uL (1.3-7.7); Neutrophils % (A) 90 %; Non-African American GFR(MDRD) >60 (>60 ml/min/1.73 sqM); Potassium 5.2 mmol/L (3.5-5.1); RBC 4.59 m/uL (3.80-5.40); RDW 15.7 % (11.5-15.5); Sodium 136 mmol/L (137-145); WBC 12.4 k/uL (3.8-10.6)
--- NOTE | 2016-11-04 12:05 | P.PN ---
Subjective Patient resting in bed states she is on improving we'll continue with present therapy continues with pulmonology consultation possible discharge tomorrow Objective - Vital Signs Vital signs: Vital Signs Temp 96.5 F L 11/04/16 07:00 Pulse 88 11/04/16 11:35 Resp 19 11/04/16 08:00 BP 135/87 11/04/16 07:00 Pulse Ox 98 11/04/16 07:00 Intake & Output 11/03/16 11/04/16 11/04/16 18:59 06:59 18:59 Intake Total 100 Balance 100 Intake: Oral 100 Other: Voiding Method Toilet Toilet # Voids 1 3 - Constitutional General appearance: Present: thin - EENT Eyes: Present: PERRLA Ears: bilateral: normal - Neck Neck: Present: normal ROM - Respiratory Respiratory: bilateral: diminished - Cardiovascular Rhythm: regular - Gastrointestinal General gastrointestinal: Present: soft - Integumentary Integumentary: Present: normal - Neurologic Neurologic: Present: CNII-XII intact - Musculoskeletal Musculoskeletal: Present: generalized weakness - Psychiatric Psychiatric: Present: A&O x's 3, appropriate affect, intact judgment & insight - Labs CBC & Chem 7: 11/04/16 09:13 11/04/16 09:13 Labs: Abnormal Lab Results - Last 24 Hours (Table) 11/03/16 11/03/16 11/04/16 Range/Units 16:46 20:58 07:35 WBC (3.8-10.6) k/uL MCHC (31.0-37.0) g/dL RDW (11.5-15.5) % Plt Count (150-450) k/uL Neutrophils # (1.3-7.7) k/uL Lymphocytes # (1.0-4.8) k/uL Sodium (137-145) mmol/L Potassium (3.5-5.1) mmol/L Chloride (98-107) mmol/L BUN (7-17) mg/dL Creatinine (0.52-1.04) mg/dL Glucose (74-99) mg/dL POC Glucose (mg/dL) 136 H 202 H 119 H (75-99) mg/dL 11/04/16 11/04/16 Range/Units 09:13 09:13 WBC 12.4 H (3.8-10.6) k/uL MCHC 29.9 L (31.0-37.0) g/dL RDW 15.7 H (11.5-15.5) % Plt Count 611 H (150-450) k/uL Neutrophils # 11.1 H (1.3-7.7) k/uL Lymphocytes # 0.8 L (1.0-4.8) k/uL Sodium 136 L (137-145) mmol/L Potassium 5.2 H (3.5-5.1) mmol/L Chloride 96 L (98-107) mmol/L BUN 34 H (7-17) mg/dL Creatinine 0.42 L (0.52-1.04) mg/dL Glucose 193 H (74-99) mg/dL POC Glucose (mg/dL) (75-99) mg/dL Assessment and Plan Plan: Assessment Chronic obstructive pulmonary disease/asthma acute on chronic exacerbation With acute hypoxic respiratory failure chronic hypoxic hypercarbic respiratory failure on 5 L at home Moderate to severe protein calorie malnutrition with body mass index of 17.2 History of GERD History of migraines History of degenerative joint disease chronic pain opioid dependent MRSA history Anxiety/bipolar/depression Plan Continue consultation with pulmonology hopeful discharge soon
[2016-11-04] MEDS: MULTIVITAMINS, THERA 1 EACH TAB PO SCH (12:34)
[2016-11-04 12:35] VITALS: BMI 17.2
[2016-11-04 12:36] LABS: Glucose,Whole Blood 121 mg/dL (75-99)
--- NOTE | 2016-11-04 15:21 | P.PN ---
Subjective Principal diagnosis: COPD exacerbation 46-year-old female patient with end-stage COPD, coming in for another COPD exacerbation. The patient has had multiple hospitalizations in the past for COPD exacerbation. She is a chronic smoker. She smokes about 4-6 cigarettes on a daily basis. She is often dependent all times. She has had previous MRSA pneumonia and there most recent sputum analysis showed strep pneumo. The patient came in for increased dyspnea cough chest tightness and wheezing and is a typical has position for him. In the past she has been supported with noninvasive positive pressure ventilation however during this current admission this was not utilized. Her baseline FEV1 is noted of 27% of predicted. No nausea. No vomiting. No altered mentation. She is cachectic and malnourished and in a very poor baseline performance and functional status. In terms of her COPD, the patient is demented on accommodation Spiriva and Symbicort as maintenance inhalers. On 11/03/2016, patient is doing better. She is resting comfortably in bed. Her COPD seems to be improving and she is less spastic and wheezy compared to yesterday. Today she is able to speak up full sentences. No chest pain. No cough or sputum production. No fever or chills. No nausea or vomiting. No abdominal pain. No other complaints otherwise for now. She is seen again today 11/04/2016 in follow-up. She is awake and alert in no acute distress. She is doing much better. She is less bronchospastic and wheezing. She is able to tolerate more activity with less dyspnea. She is anxious to go home. Objective - Vital Signs Vital signs: Vital Signs Temp 96.5 F L 11/04/16 07:00 Pulse 88 11/04/16 11:35 Resp 19 11/04/16 08:00 BP 135/87 11/04/16 07:00 Pulse Ox 98 11/04/16 07:00 Intake & Output 11/03/16 11/04/16 11/04/16 18:59 06:59 18:59 Intake Total 100 Balance 100 Weight 45.359 kg Intake: Oral 100 Other: Voiding Method Toilet Toilet # Voids 1 3 - Exam Thin and frail and cachectic. Mild degree of respiratory distress. Not using accessory muscles of breathing. Head exam was generally normal. There was no scleral icterus or corneal arcus. Mucous membranes were moist.Neck was supple and without jugular venous distension, thyromegaly, or carotid bruits. Carotids were easily palpable bilaterally. There was no adenopathy. Lung sounds are markedly diminished bilaterally along with scattered external wheezes throughout the lung cagle.Cardiac exam revealed the PMI to be normally situated and sized. The rhythm was regular and no extrasystoles were noted during several minutes of auscultation. The first and second heart sounds were normal and physiologic splitting of the second heart sound was noted. There were no murmurs, rubs, clicks, or gallops.Abdominal exam revealed normal bowel sounds. The abdomen was soft, non-tender, and without masses, organomegaly, or appreciable enlargement of the abdominal aorta.Examination of the extremities revealed easily palpable radial, femoral and pedal pulses. There was no cyanosis , clubbing or edema. - Labs CBC & Chem 7: 11/04/16 09:13 11/04/16 09:13 Labs: Abnormal Lab Results - Last 24 Hours (Table) 11/03/16 11/03/16 11/04/16 Range/Units 16:46 20:58 07:35 WBC (3.8-10.6) k/uL MCHC (31.0-37.0) g/dL RDW (11.5-15.5) % Plt Count (150-450) k/uL Neutrophils # (1.3-7.7) k/uL Lymphocytes # (1.0-4.8) k/uL Sodium (137-145) mmol/L Potassium (3.5-5.1) mmol/L Chloride (98-107) mmol/L BUN (7-17) mg/dL Creatinine (0.52-1.04) mg/dL Glucose (74-99) mg/dL POC Glucose (mg/dL) 136 H 202 H 119 H (75-99) mg/dL 11/04/16 11/04/16 11/04/16 Range/Units 09:13 09:13 12:28 WBC 12.4 H (3.8-10.6) k/uL MCHC 29.9 L (31.0-37.0) g/dL RDW 15.7 H (11.5-15.5) % Plt Count 611 H (150-450) k/uL Neutrophils # 11.1 H (1.3-7.7) k/uL Lymphocytes # 0.8 L (1.0-4.8) k/uL Sodium 136 L (137-145) mmol/L Potassium 5.2 H (3.5-5.1) mmol/L Chloride 96 L (98-107) mmol/L BUN 34 H (7-17) mg/dL Creatinine 0.42 L (0.52-1.04) mg/dL Glucose 193 H (74-99) mg/dL POC Glucose (mg/dL) 121 H (75-99) mg/dL Assessment and Plan Plan: Assessment 1 acute COPD exacerbation 2 advanced end-stage COPD with a baseline FEV1 of 27% of predicted 3 chronic hypoxic and hypercapnic respiratory failure 4 chronic steroid dependence secondary to recurrent exacerbation of COPD 5 cachectic/catabolic state secondary to advanced COPD 6 nicotine addiction/smoking 7 cervical cancer 8 cervical spondylosis with lumbar spine spondylosis 9 peptic ulcer disease 10 remote history of MRSA pneumonia Plan: The patient was seen and evaluated by Dr. Molina. She is improved from her COPD exacerbation. She is cleared for discharge from the pulmonary standpoint. She is again educated regarding the importance of complete smoking cessation. Her overall prognosis remains quite guarded based on the above- mentioned multiple comorbidities. She'll complete her course of antibiotics and a prednisone taper and continue her usual pulmonary medications. She'll be seen in our office in 1 week's time. She is however encouraged to call sooner with any recurrence of symptoms or any other questions or concerns.
[2016-11-04 17:08] LABS: Glucose,Whole Blood 182 mg/dL (75-99)
[2016-11-04 21:50] LABS: Glucose,Whole Blood 132 mg/dL (75-99)
[2016-11-04] MEDS: ASPIRIN 325 MG TAB PO SCH (22:12)
[2016-11-04] MEDS: traZODone HCL 100 MG TAB PO SCH (22:13)
[2016-11-04] MEDS: buPROPion SR 150 MG TABLET.ER PO SCH (22:13)
[2016-11-04] MEDS: risperiDONE 1 MG TAB PO SCH (22:14)
[2016-11-05] MEDS: ALPRAZolam 0.25 MG TAB PO PRN ×2 (03:29→13:31)
[2016-11-05] MEDS: HYDROcodone/APAP 10-325MG 1 EACH TAB PO PRN ×2 (03:29→13:31)
[2016-11-05] MEDS: IPRATROPIUM-ALBUTEROL 3 ML NEB INHALATION PRN ×3 (04:10→10:57)
[2016-11-05] MEDS: HYDROmorphone 1 MG/ML 1 ML SYRINGE IVP PRN ×2 (06:01→12:02)
[2016-11-05] MEDS: methylPREDNISolone SOD SUCCI 125 MG/2 ML VIAL IV SCH ×2 (06:01→12:50)
[2016-11-05] MEDS: BUDESONIDE 1 MG/2 ML NEBU INHALATION SCH (07:20)
[2016-11-05] MEDS: FORMOTEROL FUMARATE 20 MCG/2 ML NEBU INHALATION SCH (07:20)
[2016-11-05 07:44] LABS: Glucose,Whole Blood 125 mg/dL (75-99)
[2016-11-05] MEDS: INSULIN LISPRO (humaLOG) 300 UNIT/3 ML VIAL SQ SCH ×2 (08:10→12:50)
[2016-11-05] MEDS: HEPARIN SODIUM,PORCINE 5,000 UNIT/ML 1 ML VIAL SQ SCH (08:11)
[2016-11-05] MEDS: THEOPHYLLINE 24 HOUR 300 MG CAP.ER.24H PO SCH (08:11)
[2016-11-05] MEDS: NYSTATIN 100,000 UNIT/ML SUSP 500,000 UNIT/5 ML CUP PO SCH ×2 (08:11→12:50)
[2016-11-05] MEDS: PREGABALIN 100 MG CAP PO SCH (08:12)
[2016-11-05] MEDS: PANTOPRAZOLE 40 MG TABLET PO SCH (08:13)
[2016-11-05 08:21] VITALS: BP 136/93; RESP 19; TEMP 97.6
[2016-11-05 09:30] LABS: Basophils % (A) 0 %; CH 27.1; CHCM 30.6; Eosinophils % (A) 0 %; HDW 2.87; HGB 12.4 gm/dL (11.4-16.0); Hypochromasia Moderate; Luc # (Auto) 0.14; Luc % (Auto) 1; Lymphocytes # (A) 0.9 k/uL (1.0-4.8); Lymphocytes % (A) 7 %; MCH 26.3 pg (25.0-35.0); MCHC 29.5 g/dL (31.0-37.0); MCV 89.1 fL (80.0-100.0); Mean Platelet Volume 7.2; Monocytes # (A) 0.3 k/uL (0-1.0); Monocytes % (A) 2 %; Neutrophils % (A) 90 %; RBC 4.71 m/uL (3.80-5.40); RDW 15.7 % (11.5-15.5); WBC 13.4 k/uL (3.8-10.6); WBC (Perox) 14.32
[2016-11-05 09:57] LABS: Anion Gap 8 mmol/L; Blood Urea Nitrogen 33 mg/dL (7-17); Calcium 9.4 mg/dL (8.4-10.2); Carbon Dioxide 31 mmol/L (22-30); Chloride 97 mmol/L (98-107); Glucose 240 mg/dL (74-99); Non-African American GFR(MDRD) >60 (>60 ml/min/1.73 sqM); Potassium 5.1 mmol/L (3.5-5.1); Sodium 136 mmol/L (137-145)
[2016-11-05 10:59] VITALS: PULSE 72
[2016-11-05 11:06] LABS: Appearance,Urine Clear (Clear); Bilirubin,Urine Negative (Negative); Glucose,Urine (UA) 2+ (Negative); Ketones,Urine Negative (Negative); Leukocyte Esterase,Urine Negative (Negative); Nitrite,Urine Negative (Negative); PH, Urine 6.5 (5.0-8.0); Protein,Urine Negative (Negative); Specific Gravity,Urine 1.015 (1.001-1.035); UA Billing (MACRO vs. MICRO) CHEM; Urobilinogen,Urine <2.0 mg/dL (<2.0)
[2016-11-05 12:03] LABS: Glucose,Whole Blood 123 mg/dL (75-99)
[2016-11-05] MEDS: MULTIVITAMINS, THERA 1 EACH TAB PO SCH (12:50)
--- NOTE | 2016-11-06 10:18 | DS ---
DATE OF ADMISSION: 10/31/2016 DATE OF DISCHARGE: 11/05/2016 FINAL DIAGNOSES: 1. Chronic obstructive pulmonary disease acute exacerbation with acute purulent tracheobronchitis with acute hypoxic hypercarbic respiratory failure, present on admission. 2. Chronic hypoxic hypercarbic respiratory failure on 5L nasal cannula. 3. Increased WBC. 4. Increased platelets. 5. Increased CO2. 6. Moderate to severe protein-calorie malnutrition with a body mass index of 17.2. 7. History of gastroesophageal reflux disease. 8. Hyperlipidemia. 9. History of degenerative joint disease. 10. History of chronic migraines. 11. History of peptic ulcer disease. 12. History of cervical cancer. 13. History of methicillin-resistant Staphylococcus aureus. 14. History of cholecystectomy. 15. Anxiety, bipolar depression. 16. History of THC. 17. FULL CODE. DISCHARGE DISPOSITION: The patient will be discharged in stable condition with guarded prognosis. Discharge cleared by Dr. Molina. HISTORY OF PRESENT ILLNESS: This 46-year-old woman with a past medical history of multiple medical problems admitted with COPD acute exacerbation and multiple medical problems. As mentioned earlier, patient is being treated in conjunction with Dr. Molina with steroids, IV fluids and antibiotics. Patient improved significantly. On exam, vitals are stable. CARDIOVASCULAR: S1 and S2 muffled. RESPIRATORY: Breath sounds diminished in the bases. Bilateral scattered rhonchi and crackles. ABDOMEN: Soft, nontender. NERVOUS SYSTEM: No focal deficits. DISCHARGE ADVICE AND MEDICATIONS: 1. Diet is cardiac. 2. Activity limited until followup. 3. Follow up with Dr. Italo John in 2 to 3 days. 4. Followup with Dr. Molina s advised. 5. Medications are: a. Xanax 0.5 t.i.d. p.r.n. b. Ventolin HFA 2 puffs q.i.d. p.r.n. c. Albuterol nebulizer q.i.d. and p.r.n. d. Ecotrin 320 mg p.o. q.h.s. e. Symbicort 160/4.5, 2 puffs b.i.d. f. Ceftin 500 mg p.o. b.i.d. for 5 days. g. [place] 10 mg t.i.d. p.r.n. h. Atrovent HFA 2 puffs q.i.d. i. Multivitamins 1 p.o. daily. j. Nystatin 5 mL q.i.d. for 5 days. k. Prilosec 40 mg p.o. b.i.d. l. Lyrica 100 mg p.o. b.i.d. m. Akhil-Dur 300 mg p.o. b.i.d. n. Wellbutrin SR 150 mg q.h.s. o. Prednisone taper so that will be 40 mg daily for 3 days, 30 for 3 days, 20 for 3 days, 10 for 3 days and then stop. p. Requip 0.5 mg q.h.s. q. Risperdal 3 mg p.o. every 6 hours. r. Trazodone 300 mg p.o. q.h.s. Once again, the patient will be discharged to home with guarded prognosis.
== END 2016-11-05 13:58 | disposition home health service (06) | DRG 190 ==
LOC: EC 16:51 → 4MS4W 19:35
PROVIDERS: ADMIT Family Medicine; ATTEND Family Medicine
DX: J44.0 Chronic obstructive pulmonary disease with (acute) lower respiratory infection (principal); E43 Unspecified severe protein-calorie malnutrition; J96.21 Acute and chronic respiratory failure with hypoxia; R64 Cachexia; J45.901 Unspecified asthma with (acute) exacerbation; J96.12 Chronic respiratory failure with hypercapnia; F11.20 Opioid dependence, uncomplicated; Z68.1 Body mass index [BMI] 19.9 or less, adult; J44.1 Chronic obstructive pulmonary disease with (acute) exacerbation; M50.222 Other cervical disc displacement at C5-C6 level; M50.223 Other cervical disc displacement at C6-C7 level; F03.90 Unspecified dementia, unspecified severity, without behavioral disturbance, psychotic disturbance, mood disturbance, and anxiety; K27.9 Peptic ulcer, site unspecified, unspecified as acute or chronic, without hemorrhage or perforation; J20.9 Acute bronchitis, unspecified; K21.9 Gastro-esophageal reflux disease without esophagitis; E78.5 Hyperlipidemia, unspecified; F41.9 Anxiety disorder, unspecified; F31.9 Bipolar disorder, unspecified; F17.210 Nicotine dependence, cigarettes, uncomplicated; F12.90 Cannabis use, unspecified, uncomplicated; M47.812 Spondylosis without myelopathy or radiculopathy, cervical region; I10 Essential (primary) hypertension; G89.29 Other chronic pain; M47.816 Spondylosis without myelopathy or radiculopathy, lumbar region; M19.91 Primary osteoarthritis, unspecified site; I25.2 Old myocardial infarction; Z99.81 Dependence on supplemental oxygen; Z87.01 Personal history of pneumonia (recurrent); Z85.41 Personal history of malignant neoplasm of cervix uteri; Z86.14 Personal history of Methicillin resistant Staphylococcus aureus infection; Z90.49 Acquired absence of other specified parts of digestive tract; Z79.51 Long term (current) use of inhaled steroids; Z79.82 Long term (current) use of aspirin; Z79.899 Other long term (current) drug therapy
CPT/HCPCS: 36415; 71020; 80048; 80053; 80198; 81003; 82550; 82553; 83036; 83605; 84484; 85025; 85610; 85730; 87040; 87086; 93005; 94640; 96374; 99285

== ENCOUNTER 2016-11-19 05:49 | Inpatient (IN) | payer OTHER ==
[2016-11-19] MEDS ORDERED: IPRATROPIUM-ALBUTEROL 3 ML NEB INHALATION STA (06:03)
[2016-11-19] MEDS ORDERED: ALBUTEROL NEBULIZED 2.5 MG/3 ML INHALATION STA ×2 (06:03→08:04)
[2016-11-19] MEDS ORDERED: predniSONE 20 MG TAB PO STA (06:03)
--- NOTE | 2016-11-19 06:10 | ED ---
SOB HPI - General Chief Complaint: Shortness of Breath Stated Complaint: SOB Time Seen by Provider: 11/19/16 06:02 Source: patient Mode of arrival: wheelchair Limitations: no limitations - History of Present Illness Initial Comments: This patient is a 46-year-old woman with history of COPD who presents with complaint of increasing shortness of breath, change in her baseline cough, and chest pain across her upper chest going on for the past 2 days now. The patient states that she has been using her home nebulized treatments about every hour, and she increased her steroid dose from 20 mg up to 40 mg per day today. She states that she is still feeling short of breath and decided to be seen here. Patient states that the sputum she is bringing up is now yellow to green which is different than baseline. Patient denies fever or chills. No diaphoresis, nausea or vomiting. No leg pain or swelling. No change in urination. She has not noted any dark or tarry stools or red blood. MD Complaint: shortness of breath, cough, chest pain Onset/Timin -: days(s) Quality: aching Consistency: constant Improves With: nothing Worsens With: coughing Known History Of: COPD Treatments Prior to Arrival: oxygen, bronchodilator - Related Data Home Medications Medication Instructions Recorded Confirmed Albuterol Inhaler [Ventolin Hfa 2 puff INHALATION RT-QID PRN 01/03/14 11/19/16 Inhaler] Omeprazole [PriLOSEC] 40 mg PO BID 01/03/14 11/19/16 Multivitamins, Thera [Multivitamin 1 tab PO DAILY 12/24/14 11/19/16 (formulary)] risperiDONE 3 mg PO HS 12/24/14 11/19/16 traZODone HCL 300 mg PO HS 12/24/14 11/19/16 buPROPion SR [Wellbutrin SR] 150 mg PO HS 04/30/15 11/19/16 Albuterol Nebulized [Ventolin 2.5 mg INHALATION RT-QID 03/24/16 11/19/16 Nebulized] Aspirin [Aspirin EC] 325 mg PO HS 03/24/16 11/19/16 Ipratropium [place] [Atrovent Hfa] 2 puff INHALATION RT-QID 07/07/16 11/19/16 HYDROcodone/APAP 10-325MG [[place] 1 tab PO TID PRN 07/08/16 11/19/16 10-325] rOPINIRole HCL 0.5 mg PO HS 07/18/16 11/19/16 Pregabalin [Lyrica] 100 mg PO BID 10/31/16 11/19/16 predniSONE 20 mg PO DAILY 11/19/16 11/19/16 Previous Rx's Medication Instructions Recorded Budesonide-Formot 160-4.5 Mcg 2 puff INHALATION RT-BID puff 07/13/16 [Symbicort 160-4.5 Mcg Inhaler] Theophylline 24 Hour [Akhil-24] 300 mg PO BID 30 Days 07/21/16 ALPRAZolam [Xanax] 0.25 mg PO TID PRN #30 tab 09/13/16 Nystatin 100,000 Unit/ml Susp 500,000 unit PO QID 5 Days 09/13/16 [Mycostatin Oral Susp] Allergies Allergy/AdvReac Type Severity Reaction Status Date / Time aripiprazole [From Abilify] Allergy Rash/Hives Verified 11/19/16 07:43 honey Allergy Rash/Hives Verified 11/19/16 07:43 methadone [Methadone] Allergy Itching Verified 11/19/16 07:43 naproxen Allergy Rash/Hives Verified 11/19/16 07:43 sulfamethoxazole Allergy Rash/Hives Verified 11/19/16 07:43 [From Bactrim] tetracycline [Tetracycline] Allergy Rash/Hives Verified 11/19/16 07:43 trimethoprim [From Bactrim] Allergy Rash/Hives Verified 11/19/16 07:43 adhesive tape AdvReac Rash/Hives Verified 11/19/16 07:43 codeine AdvReac Abdominal Verified 11/19/16 07:43 Pain ketorolac tromethamine AdvReac Vomiting Verified 11/19/16 07:43 [From Toradol] pregabalin [From Lyrica] AdvReac Unknown Verified 11/19/16 07:43 tramadol HCl [From Ultram] AdvReac SEIZURES Verified 11/19/16 07:43 tromethamine AdvReac Nausea & Verified 11/19/16 07:43 Vomiting Review of Systems ROS Statement: Those systems with pertinent positive or pertinent negative responses have been documented in the HPI. ROS Other: All systems not noted in ROS Statement are negative. Constitutional: Denies: fever, chills Respiratory: Reports: cough, dyspnea, wheezes. Denies: hemoptysis Cardiovascular: Reports: chest pain. Denies: palpitations, orthopnea, edema, syncope Gastrointestinal: Denies: abdominal pain, vomiting, diarrhea, melena, hematochezia Genitourinary: Denies: dysuria, frequency Musculoskeletal: Denies: back pain Skin: Denies: rash Neurological: Denies: headache, weakness, numbness Past Medical History Past Medical History: Asthma, Cancer, Chest Pain / Angina, COPD, GERD/Reflux, Hyperlipidemia, Osteoarthritis (OA) Additional Past Medical History / Comment(s): COPD which is been end-stage with frequent hospitalization for acute COPD exacerbation. The patient has chronic hypoxic and hypercapnic respiratory failure. 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, cervical and lumbar spine spondylosis, chronic migraines, peptic ulcer disease/gastric ulcers, carpal tunnel disease bilaterally, herniated disc at level of C5-C6 and C7, cervical cancer, depression, cachexia and malnourishment and significant loss and total body protein mass Last Myocardial Infarction Date:: UNK History of Any Multi-Drug Resistant Organisms: MRSA Date of last positivie culture/infection: 06/18/2015 MDRO Source:: SPUTUM Past Surgical History: Section, Cholecystectomy, Hysterectomy, Tubal Ligation Additional Past Surgical History / Comment(s): x 2, colonoscopy with benign polypectomy. Past Anesthesia/Blood Transfusion Reactions: No Reported Reaction Additional Past Anesthesia/Blood Transfusion Reaction / Comment(s): Pt has never recieved blood. Past Psychological History: Anxiety, Bipolar, Depression Additional Psychological History / Comment(s): Pt resides with her son jessica. She performs her own ADLs. She has home O2 at 5 L/[place] ATC. She does not drive but her son takes her places. she uses a walker as needed. Per her old medical record dated 07/06/14 pt was seen in [facility] ER for suicide attempt and admitted to psych. Relates that she is an ongoing tobacco smoker-smokes 3 CIG/ DAY. She does not have experience. She has no international travels. Smoking Status: Former smoker Past Alcohol Use History: None Reported Additional Past Alcohol Use History / Comment(s): ADMITS TO SMOKING 3 CIG PER DAY. Past Drug Use History: Marijuana Additional Drug Use History / Comment(s): OCC MARIJUANA USE - Past Family History Father Family Medical History: No Reported History Additional Family Medical History / Comment(s): WAS AN ALCOHOLIC Mother Family Medical History: Cancer Additional Family Medical History / Comment(s): AT AGE 54-BOWEL CANCER General Exam Limitations: no limitations General appearance: alert, in distress, cachectic Head exam: Present: atraumatic, normocephalic Eye exam: Present: normal appearance. Absent: scleral icterus, conjunctival injection ENT exam: Present: mucous membranes dry Respiratory exam: Present: respiratory distress (Tachypnea), wheezes, accessory muscle use, decreased breath sounds, prolonged expiratory. Absent: rales, rhonchi, stridor Cardiovascular Exam: Present: tachycardia, normal heart sounds. Absent: systolic murmur, diastolic murmur, rubs, gallop GI/Abdominal exam: Present: soft. Absent: distended, tenderness, guarding, rebound Extremities exam: Present: normal inspection, normal capillary refill. Absent: pedal edema, calf tenderness Back exam: Absent: CVA tenderness (R), CVA tenderness (L) Neurological exam: Present: alert Psychiatric exam: Present: anxious Skin exam: Present: warm, dry, intact, normal color. Absent: rash Course Vital Signs 11/19/16 11/19/16 11/19/16 05:59 06:10 06:22 Temperature 98.3 F Pulse Rate 133 H 122 H 119 H Respiratory 32 H 26 H Rate Blood Pressure 138/87 121/86 O2 Sat by Pulse 75 L 99 Oximetry 11/19/16 11/19/16 11/19/16 06:38 06:40 07:07 Temperature 97.3 F L Pulse Rate 115 H 115 H 119 H Respiratory 25 H 25 H Rate Blood Pressure 141/91 151/88 O2 Sat by Pulse 97 98 Oximetry Medical Decision Making - Medical Decision Making This patient is a 46-year-old lady with history of COPD, presenting with exacerbation of COPD. She has received nebulized treatments and steroids with only minimal relief of symptoms. Patient be admitted for further treatment, the case was discussed with Dr. Olivas, covering for Dr. John. Discussed the case with Dr. Lino from pulmonology. - Lab Data Result diagrams: 11/19/16 06:12 03/31/17 06:12 Lab Results 11/19/16 11/19/16 11/19/16 Range/Units 06:12 06:12 06:12 WBC 13.6 H (3.8-10.6) k/uL RBC 4.48 (3.80-5.40) m/uL Hgb 12.0 (11.4-16.0) gm/dL Hct 39.0 (34.0-46.0) % MCV 87.0 (80.0-100.0) fL MCH 26.9 (25.0-35.0) pg MCHC 30.9 L (31.0-37.0) g/dL RDW 16.5 H (11.5-15.5) % Plt Count 482 H (150-450) k/uL Neutrophils % 80 % Lymphocytes % 11 % Monocytes % 6 % Eosinophils % 1 % Basophils % 1 % Neutrophils # 10.9 H (1.3-7.7) k/uL Lymphocytes # 1.5 (1.0-4.8) k/uL Monocytes # 0.8 (0-1.0) k/uL Eosinophils # 0.1 (0-0.7) k/uL Basophils # 0.1 (0-0.2) k/uL Hypochromasia Moderate Anisocytosis Slight PT 10.2 (9.0-12.0) sec INR 1.0 (<1.1) APTT 22.9 (22.0-30.0) sec D-Dimer <0.17 (<0.60) mg/L FEU Sodium 140 (137-145) mmol/L Potassium 3.6 (3.5-5.1) mmol/L Chloride 99 (98-107) mmol/L Carbon Dioxide 33 H (22-30) mmol/L Anion Gap 8 mmol/L BUN 22 H (7-17) mg/dL Creatinine 0.40 L (0.52-1.04) mg/dL Est GFR (MDRD) Af Amer >60 (>60 ml/min/1.73 sqM) Est GFR (MDRD) Non-Af >60 (>60 ml/min/1.73 sqM) Glucose 161 H (74-99) mg/dL Calcium 9.3 (8.4-10.2) mg/dL Magnesium 1.4 L (1.6-2.3) mg/dL Total Bilirubin 0.6 (0.2-1.3) mg/dL AST 14 (14-36) U/L ALT 26 (9-52) U/L Alkaline Phosphatase 74 (38-126) U/L Troponin I (0.000-0.034) ng/mL NT-Pro-B Natriuret Pep pg/mL Total Protein 6.6 (6.3-8.2) g/dL Albumin 3.7 (3.5-5.0) g/dL 11/19/16 11/19/16 Range/Units 06:12 06:12 WBC (3.8-10.6) k/uL RBC (3.80-5.40) m/uL Hgb (11.4-16.0) gm/dL Hct (34.0-46.0) % MCV (80.0-100.0) fL MCH (25.0-35.0) pg MCHC (31.0-37.0) g/dL RDW (11.5-15.5) % Plt Count (150-450) k/uL Neutrophils % % Lymphocytes % % Monocytes % % Eosinophils % % Basophils % % Neutrophils # (1.3-7.7) k/uL Lymphocytes # (1.0-4.8) k/uL Monocytes # (0-1.0) k/uL Eosinophils # (0-0.7) k/uL Basophils # (0-0.2) k/uL Hypochromasia Anisocytosis PT (9.0-12.0) sec INR (<1.1) APTT (22.0-30.0) sec D-Dimer (<0.60) mg/L FEU Sodium (137-145) mmol/L Potassium (3.5-5.1) mmol/L Chloride (98-107) mmol/L Carbon Dioxide (22-30) mmol/L Anion Gap mmol/L BUN (7-17) mg/dL Creatinine (0.52-1.04) mg/dL Est GFR (MDRD) Af Amer (>60 ml/min/1.73 sqM) Est GFR (MDRD) Non-Af (>60 ml/min/1.73 sqM) Glucose (74-99) mg/dL Calcium (8.4-10.2) mg/dL Magnesium (1.6-2.3) mg/dL Total Bilirubin (0.2-1.3) mg/dL AST (14-36) U/L ALT (9-52) U/L Alkaline Phosphatase (38-126) U/L Troponin I <0.012 (0.000-0.034) ng/mL NT-Pro-B Natriuret Pep 45 pg/mL Total Protein (6.3-8.2) g/dL Albumin (3.5-5.0) g/dL - EKG Data -: EKG Interpreted by Wy EKG shows normal: sinus rhythm, axis (Left axis deviation), intervals (Normal) Rate: tachycardia (Rate approximately 123 bpm) Interpretation: other (Pulmonary disease pattern) Disposition Clinical Impression: COPD (chronic obstructive pulmonary disease) with emphysema, Hypomagnesemia Disposition: ADMITTED IP TO THIS HOSP Condition: Serious
[2016-11-19 06:23] LABS: Anisocytosis Slight; Basophils # (A) 0.1 k/uL (0-0.2); Basophils % (A) 1 %; CHCM 31.1; Eosinophils # (A) 0.1 k/uL (0-0.7); Eosinophils % (A) 1 %; HDW 2.88; Hypochromasia Moderate; Luc # (Auto) 0.19; Luc % (Auto) 1; Lymphocytes # (A) 1.5 k/uL (1.0-4.8); Lymphocytes % (A) 11 %; MCH 26.9 pg (25.0-35.0); MCHC 30.9 g/dL (31.0-37.0); Mean Platelet Volume 7.4; Monocytes # (A) 0.8 k/uL (0-1.0); Monocytes % (A) 6 %; Neutrophils # (A) 10.9 k/uL (1.3-7.7); Neutrophils % (A) 80 %; RBC 4.48 m/uL (3.80-5.40); RDW 16.5 % (11.5-15.5); WBC 13.6 k/uL (3.8-10.6); WBC (Perox) 13.21
[2016-11-19] MEDS ORDERED: ACETAMINOPHEN TAB 325 MG TAB PO STA (06:25)
[2016-11-19 06:35] LABS: ALT 26 U/L (9-52); AST 14 U/L (14-36); Alkaline Phosphatase 74 U/L (38-126); Anion Gap 8 mmol/L; Blood Urea Nitrogen 22 mg/dL (7-17); Calcium 9.3 mg/dL (8.4-10.2); Carbon Dioxide 33 mmol/L (22-30); Chloride 99 mmol/L (98-107); Glucose 161 mg/dL (74-99); Magnesium 1.4 mg/dL (1.6-2.3); Non-African American GFR(MDRD) >60 (>60 ml/min/1.73 sqM); Potassium 3.6 mmol/L (3.5-5.1); Sodium 140 mmol/L (137-145); Total Bilirubin 0.6 mg/dL (0.2-1.3); Total Protein 6.6 g/dL (6.3-8.2)
--- NOTE | 2016-11-19 06:48 | XR ---
EXAM: XR Chest, 1 View. CLINICAL HISTORY: Reason: dyspnea TECHNIQUE: Frontal view of the chest. COMPARISON: 10/31/16 FINDINGS: Lungs: The lungs are mildly hyperinflated, suggestive of COPD. No evidence of airspace consolidation or significant pleural effusion. No superimposed acute interstitial abnormality. Pleural spaces: Unremarkable. No pneumothorax. Heart: Unremarkable. No cardiomegaly. Mediastinum: Unremarkable. Bones: Unremarkable. No acute fracture. IMPRESSION: Mild lung hyperinflation. Otherwise no evidence of active cardiopulmonary abnormality.
[2016-11-19 06:50] LABS: Partial Thromboplastin Time 22.9 sec (22.0-30.0); Prothrombin Time 10.2 sec (9.0-12.0)
[2016-11-19] MEDS ORDERED: ALBUTEROL NEBULIZED 2.5 MG/3 ML INHALATION PRN (07:05)
[2016-11-19] MEDS ORDERED: SYMBICORT 160-4.5 MCG INHALER INHALATION SCH (08:00)
[2016-11-19] MEDS ORDERED: MAGNESIUM SULFATE-D5W PMX 1 GM in DEXTROSE/WATER 1 100ML.BAG IVPB ONE (08:00)
[2016-11-19] MEDS ORDERED: MORPHINE SULFATE 4 MG/ML SYRINGE IV STA (08:04)
[2016-11-19] MEDS: IPRATROPIUM-ALBUTEROL 3 ML NEB INHALATION SCH ×5 (08:49→23:23)
[2016-11-19] MEDS ORDERED: predniSONE 20 MG TAB PO SCH (09:00)
[2016-11-19] MEDS: MULTIVITAMINS, THERA 1 EACH TAB PO SCH (09:08)
[2016-11-19] MEDS: THEOPHYLLINE 24 HOUR 300 MG CAP.ER.24H PO SCH ×2 (09:08→21:07)
[2016-11-19] MEDS: PREGABALIN 100 MG CAP PO SCH ×2 (09:08→21:07)
[2016-11-19] MEDS: MAGNESIUM OXIDE 400 MG TAB PO SCH (09:09)
[2016-11-19] MEDS: PANTOPRAZOLE 40 MG TABLET PO SCH ×2 (09:09→18:24)
[2016-11-19] MEDS ORDERED: HYDROcodone/APAP 10-325MG 1 EACH TAB PO PRN (11:46)
[2016-11-19] MEDS: ALPRAZolam 0.25 MG TAB PO PRN ×2 (12:27→21:07)
--- NOTE | 2016-11-19 14:18 | P.CNPUL ---
History of Present Illness Consult date: 11/19/16 Reason for consult: dyspnea, COPD Chief complaint: shortness of breath History of present illness: 46-year-old female well-known to our service. She has history of very severe COPD. She comes in with a couple days of increasing shortness of breath chest tightness wheezing and cough. Not producing much phlegm. Bumped up her steroids on her own. That didn't really seem to help. For that reason she came into the emergency department she was evaluated and admitted. She was admitted to Dr. Kaur's service. Not having any fever or chills. Not really producing much phlegm. Not coughing up any blood. The ER scotty is reviewed. We'll be went into the room, she was laying on her right side. History short of breath. She had conversational dyspnea. Was recently on the BiPAP device but took it off to eat. She was planning to go back on the BiPAP device. Review of Systems A 12 point review of system is positive for shortness of breath cough chest congestion wheezing chest tightness and minimal phlegm production of the pulmonary system. The rest of the 12 point review of system is unremarkable. She does have conversational dyspnea. Past Medical History Past Medical History: Asthma, Cancer, Chest Pain / Angina, COPD, GERD/Reflux, Hyperlipidemia, Osteoarthritis (OA) Additional Past Medical History / Comment(s): COPD which is been end-stage with frequent hospitalization for acute COPD exacerbation. The patient has chronic hypoxic and hypercapnic respiratory failure. 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, cervical and lumbar spine spondylosis, chronic migraines, peptic ulcer disease/gastric ulcers, carpal tunnel disease bilaterally, herniated disc at level of C5-C6 and C7, cervical cancer, depression, cachexia and malnourishment and significant loss and total body protein mass Last Myocardial Infarction Date:: UNK History of Any Multi-Drug Resistant Organisms: MRSA Date of last positivie culture/infection: 06/18/2015 MDRO Source:: SPUTUM Past Surgical History: Section, Cholecystectomy, Hysterectomy, Tubal Ligation Additional Past Surgical History / Comment(s): x 2, colonoscopy with benign polypectomy. Past Anesthesia/Blood Transfusion Reactions: No Reported Reaction Additional Past Anesthesia/Blood Transfusion Reaction / Comment(s): Pt has never recieved blood. Past Psychological History: Anxiety, Bipolar, Depression Additional Psychological History / Comment(s): Pt resides with her son jessica. She performs her own ADLs. She has home O2 at 5 L/[place] ATC. She does not drive but her son takes her places. she uses a walker as needed. Per her old medical record dated 07/06/14 pt was seen in [facility] ER for suicide attempt and admitted to psych. Relates that she is an ongoing tobacco smoker-smokes 3 CIG/ DAY. She does not have experience. She has no international travels. Smoking Status: Former smoker Past Alcohol Use History: None Reported Additional Past Alcohol Use History / Comment(s): ADMITS TO SMOKING 3 CIG PER DAY. Past Drug Use History: Marijuana Additional Drug Use History / Comment(s): OCC MARIJUANA USE - Past Family History Father Family Medical History: No Reported History Additional Family Medical History / Comment(s): WAS AN ALCOHOLIC Mother Family Medical History: Cancer Additional Family Medical History / Comment(s): AT AGE 54-BOWEL CANCER Medications and Allergies Home Medications Medication Instructions Recorded Confirmed Type Albuterol Inhaler [Ventolin Hfa 2 puff INHALATION RT-QID PRN 01/03/14 11/19/16 History Inhaler] Omeprazole [PriLOSEC] 40 mg PO BID 01/03/14 11/19/16 History Multivitamins, Thera [Multivitamin 1 tab PO DAILY 12/24/14 11/19/16 History (formulary)] risperiDONE 3 mg PO HS 12/24/14 11/19/16 History traZODone HCL 300 mg PO HS 12/24/14 11/19/16 History buPROPion SR [Wellbutrin SR] 150 mg PO HS 04/30/15 11/19/16 History Albuterol Nebulized [Ventolin 2.5 mg INHALATION RT-QID 03/24/16 11/19/16 History Nebulized] Aspirin [Aspirin EC] 325 mg PO HS 03/24/16 11/19/16 History Ipratropium [place] [Atrovent Hfa] 2 puff INHALATION RT-QID 07/07/16 11/19/16 History HYDROcodone/APAP 10-325MG [[place] 1 tab PO TID PRN 07/08/16 11/19/16 History 10-325] rOPINIRole HCL 0.5 mg PO HS 07/18/16 11/19/16 History Pregabalin [Lyrica] 100 mg PO BID 10/31/16 11/19/16 History predniSONE 20 mg PO DAILY 11/19/16 11/19/16 History Allergies Allergy/AdvReac Type Severity Reaction Status Date / Time aripiprazole [From Abilify] Allergy Rash/Hives Verified 11/19/16 07:43 honey Allergy Rash/Hives Verified 11/19/16 07:43 methadone [Methadone] Allergy Itching Verified 11/19/16 07:43 naproxen Allergy Rash/Hives Verified 11/19/16 07:43 sulfamethoxazole Allergy Rash/Hives Verified 11/19/16 07:43 [From Bactrim] tetracycline [Tetracycline] Allergy Rash/Hives Verified 11/19/16 07:43 trimethoprim [From Bactrim] Allergy Rash/Hives Verified 11/19/16 07:43 adhesive tape AdvReac Rash/Hives Verified 11/19/16 07:43 codeine AdvReac Abdominal Verified 11/19/16 07:43 Pain ketorolac tromethamine AdvReac Vomiting Verified 11/19/16 07:43 [From Toradol] pregabalin [From Lyrica] AdvReac Unknown Verified 11/19/16 08:20 tramadol HCl [From Ultram] AdvReac SEIZURES Verified 11/19/16 07:43 tromethamine AdvReac Nausea & Verified 11/19/16 07:43 Vomiting Physical Exam Osteopathic Statement: *. No significant issues noted on an osteopathic structural exam other than those noted in the History and Physical/Consult. Vitals: Vital Signs Temp Pulse Resp BP Pulse Ox 11/19/16 11:22 100 11/19/16 11:06 102 H 11/19/16 09:12 100 11/19/16 09:02 100 11/19/16 08:20 97.3 F L 111 H 24 140/90 95 11/19/16 07:07 97.3 F L 119 H 25 H 151/88 98 Intake and Output 11/18/16 11/19/16 11/19/16 22:59 06:59 14:59 Intake Total 120 Balance 120 Intake: Oral 120 No audible wheezing. The patient is quite short of breath. Lots of dyspnea and tachypnea. Has conversational dyspnea is well. Alert and oriented though. HEENT examination is grossly unremarkable. Mucous membranes are moist. No oral lesions. Neck supple. Full range of motion. No adenopathy. Cardio vascular examination reveals regular rhythm rate. S1 and S2 normal. No murmur. Lungs reveal diminished breath sounds. A few scattered rhonchi. No wheezes or crackles. Breath sounds are rather silent. Abdomen soft. Extremities are intact. Results - Laboratory Findings CBC and BMP: 11/19/16 06:12 11/19/16 06:12 PT/INR, D-dimer PT 10.2 sec (9.0-12.0) 11/19/16 06:12 INR 1.0 (<1.1) 11/19/16 06:12 D-Dimer <0.17 mg/L FEU (<0.60) 11/19/16 06:12 - Diagnostic Findings Chest x-ray: image reviewed (chest x-ray labs and medications are all reviewed.) Assessment and Plan (1) COPD (chronic obstructive pulmonary disease) with emphysema Status: Acute (2) Acute exacerbation of chronic obstructive airways disease Status: Acute (3) Anxiety Status: Acute (4) COPD (chronic obstructive pulmonary disease) Status: Acute (5) COPD exacerbation Status: Acute (6) High risk for readmission Status: Acute Plan: plan dated 11/19/2016 The patient will be placed on all the appropriate medications including short acting beta agonist short acting muscarinic antagonist and inhaled corticosteroids long-acting beta agonist systemic corticosteroids and antibiotics. Prognosis is guarded. Time with Patient: Greater than 30
[2016-11-19 17:15] LABS: Glucose,Whole Blood 190 mg/dL (75-99)
--- NOTE | 2016-11-19 17:41 | HP ---
DATE OF ADMISSION: Patient is a 46-year-old with known history of COPD, advanced COPD, Gold stage IV, came in with complaints of shortness of breath and cough with yellowish sputum production. Patient has known history of COPD, does use 3 liters of oxygen at home. Patient is admitted for chronic obstructive pulmonary disease exacerbation. Patient does not have pneumonia on chest x-ray. Patient has multiple other electrolyte abnormalities, which we are replacing. Patient is on BiPAP. Patient has acute on chronic hypercapnic respiratory failure. Patient has little bit of improvement with ( ) nasal cannula oxygen. REVIEW OF SYSTEMS: CONSTITUTIONAL: No fever, no malaise, no fatigue. HEENT: No recent visual problems or hearing problems. Denied any sore throat. CARDIOVASCULAR: No chest pain, orthopnea, PND, no palpitations, no syncope. PULMONARY: As described in HPI. GASTROINTESTINAL: No diarrhea, no nausea, no vomiting, no abdominal pain. Normoactive bowel sounds. NEUROLOGICAL: No headaches, no weakness, no numbness. HEMATOLOGICAL: Denies any bleeding or petechiae. GENITOURINARY: Denies any burning micturition, frequency, or urgency. MUSCULOSKELETAL/RHEUMATOLOGICAL: Denies any joint pain, swelling, or any muscle pain. ENDOCRINE: Denies any polyuria or polydipsia. The rest of the 14 point review of systems is negative. Home medications include: ( ), acetaminophen, albuterol, alprazolam, trazodone, risperidone, ropinirole, prednisone, theophylline, pregabalin, omeprazole, nystatin, ( ) bromide and Symbicort, aspirin. PAST MEDICAL HISTORY: Significant for Gold stage IV COPD, gastroesophageal reflux disease, hyperlipidemia, osteoarthritis, osteoporosis, cervical cancer in the past which is in remission, depression, section, cholecystectomy, tubal ligation surgery, anxiety, depression. FAMILY HISTORY: No significant medical problems except for mother had bowel cancer. PHYSICAL EXAMINATION: Temperature 97.6, pulse of 100, respiratory rate of 24, blood pressure is 140/90, saturating at 95% on BiPAP at 12-liters. GENERAL: Alert, oriented x3, thin built, is in mild respiratory distress on BiPAP. HEENT: Pupils are round and equally reacting to light. EOMI. No scleral icterus. No conjunctival pallor. Normocephalic, atraumatic. No pharyngeal erythema. No thyromegaly. CARDIOVASCULAR: S1 and S2 present. No murmurs, rubs, or gallops. PULMONARY: Significantly limited air entry into bilateral lung cagle. No wheezing was appreciated. No crackles were appreciated. In mild respiratory distress as mentioned above. ABDOMEN: Soft, nontender, nondistended, normoactive bowel sounds. No palpable organomegaly. MUSCULOSKELETAL: No joint swelling or deformity. EXTREMITIES: No cyanosis, clubbing, or pedal edema. NEUROLOGICAL: Gross neurological examination did not reveal any focal deficits. SKIN: No rashes. LABORATORY DATA: CBC, CMP are abnormal for elevated WBC count of 13,600. Troponin is within normal limits. EKG, no acute ST-T wave changes. ASSESSMENT AND PLAN: 1. Acute on chronic hypercapnic respiratory failure secondary to chronic obstructive pulmonary disease exacerbation. Patient has Gold IV chronic obstructive pulmonary disease with FEV1 of less than 20%. Patient will be continued on systemic steroids, initial treatments and antibiotic in the form of doxycycline. 2. Gastroesophageal reflux disease. 3. Severe cachexia secondary to chronic obstructive pulmonary disease and smoking. 4. Restless leg syndrome. 5. Depression. For above-mentioned chronic medical problems, will go ahead and continue her home medications.
[2016-11-19] MEDS: HYDROcodone/APAP 10-325MG 1 EACH TAB PO PRN (18:16)
[2016-11-19] MEDS: DOXYCYCLINE 50 MG CAP PO SCH ×2 (18:18→21:07)
[2016-11-19] MEDS: NYSTATIN 100,000 UNIT/ML SUSP 500,000 UNIT/5 ML CUP PO SCH ×3 (18:18→21:07)
[2016-11-19] MEDS: methylPREDNISolone SOD SUCCI 125 MG/2 ML VIAL IV SCH ×2 (18:24→22:59)
[2016-11-19 19:27] LABS: Hemoglobin A1C 6.4 % (4.2-6.1)
[2016-11-19] MEDS: FORMOTEROL FUMARATE 20 MCG/2 ML NEBU INHALATION SCH (19:44)
[2016-11-19] MEDS: BUDESONIDE 1 MG/2 ML NEBU INHALATION SCH (19:44)
[2016-11-19] MEDS: traZODone HCL 100 MG TAB PO SCH (21:06)
[2016-11-19] MEDS: risperiDONE 1 MG TAB PO SCH (21:06)
[2016-11-19] MEDS: buPROPion SR 150 MG TABLET.ER PO SCH (21:07)
[2016-11-19] MEDS: ASPIRIN 325 MG TAB PO SCH (21:07)
[2016-11-19] MEDS: INSULIN LISPRO (humaLOG) 300 UNIT/3 ML VIAL SQ SCH (21:11)
[2016-11-19 21:14] LABS: Glucose,Whole Blood 223 mg/dL (75-99)
[2016-11-20] MEDS: IPRATROPIUM-ALBUTEROL 3 ML NEB INHALATION SCH ×6 (03:11→23:59)
[2016-11-20] MEDS: HYDROcodone/APAP 10-325MG 1 EACH TAB PO PRN ×4 (04:51→21:46)
[2016-11-20 05:42] LABS: Glucose,Whole Blood 177 mg/dL (75-99)
[2016-11-20] MEDS: methylPREDNISolone SOD SUCCI 125 MG/2 ML VIAL IV SCH ×4 (06:43→22:51)
[2016-11-20] MEDS: PANTOPRAZOLE 40 MG TABLET PO SCH ×2 (06:43→17:36)
[2016-11-20] MEDS: INSULIN LISPRO (humaLOG) 300 UNIT/3 ML VIAL SQ SCH ×4 (06:43→21:45)
[2016-11-20] MEDS: DOXYCYCLINE 50 MG CAP PO SCH ×2 (07:51→21:43)
[2016-11-20] MEDS: ALPRAZolam 0.25 MG TAB PO PRN ×3 (07:51→21:46)
[2016-11-20] MEDS: PREGABALIN 100 MG CAP PO SCH ×2 (07:52→21:43)
[2016-11-20] MEDS: MAGNESIUM OXIDE 400 MG TAB PO SCH (07:52)
[2016-11-20] MEDS: NYSTATIN 100,000 UNIT/ML SUSP 500,000 UNIT/5 ML CUP PO SCH ×4 (07:52→21:46)
[2016-11-20] MEDS: MULTIVITAMINS, THERA 1 EACH TAB PO SCH (07:52)
[2016-11-20] MEDS: THEOPHYLLINE 24 HOUR 300 MG CAP.ER.24H PO SCH ×2 (07:53→21:44)
[2016-11-20] MEDS: BUDESONIDE 1 MG/2 ML NEBU INHALATION SCH ×2 (07:57→20:19)
[2016-11-20] MEDS: FORMOTEROL FUMARATE 20 MCG/2 ML NEBU INHALATION SCH ×2 (07:57→20:19)
[2016-11-20 11:54] LABS: Glucose,Whole Blood 169 mg/dL (75-99)
--- NOTE | 2016-11-20 12:33 | P.PN ---
Subjective 46-year-old female well-known to our service. She has a history of very severe oxygen dependent and end-stage COPD. She comes in every couple weeks or month complaining of increasing shortness of breath chest tightness wheezing and cough. She's typically admitted to the hospital for a couple days and discharged home. Also typical for this patient is a fact that she is always requesting pain medications. I refused to give her any. Is up to the hospitalist to see to give her pain medications. Anyway she's up on the sixth floor. She could be transferred down to the fourth floor. She did spend a fair a fair amount of time on BiPAP overnight. No cough no wheezing. Very short of breath. Very tachypneic and dyspneic. No chest pain or chest discomfort. Not coughing up significant phlegm or blood. Objective - Vital Signs Vital signs: Vital Signs Temp 97.2 F L 11/20/16 07:48 Pulse 100 11/20/16 12:00 Resp 22 11/20/16 12:00 BP 164/86 11/20/16 12:00 Pulse Ox 95 11/20/16 12:00 Intake & Output 11/19/16 11/20/16 11/20/16 18:59 06:59 18:59 Intake Total 560 640 600 Output Total 200 300 Balance 360 340 600 Weight 45.5 kg 45.2 kg Intake: IV 100 Magnesium Sulfate-D5w Pmx 100 1 gm In Dextrose/Water 1 100ml.bag @ 100 mls/hr IVPB ONCE ONE Rx#: [id number] Intake, IV Titration 100 Amount Magnesium Sulfate-D5w Pmx 100 1 gm In Dextrose/Water 1 100ml.bag @ 100 mls/hr IVPB ONCE ONE Rx#: [id number] Oral 360 640 600 Output: Urine 200 300 Other: Voiding Method Bedside Commode Bedside Commode # Voids 1 # Bowel Movements 0 - Exam No acute distress, oriented 3. Complaining about abdominal pain and chest pain. The nurses refusing to give her pain medication as his up to the hospitalist prescribed. HEENT examination is grossly unremarkable. BiPAP mask in place. Neck supple. Full range of motion. No adenopathy or thyromegaly. Cardiovascular examination reveals distant heart sounds. Heart rate about 90 S1 and S2 normal. No distinct murmurs noted. Lungs reveal a few scattered inspiratory and expiratory coarse rhonchi. Breath sounds are severely diminished throughout. Breath sounds are equal. Abdomen soft Extremities are intact. - Labs CBC & Chem 7: 11/19/16 06:12 11/19/16 06:12 Labs: Abnormal Lab Results - Last 24 Hours (Table) 11/19/16 11/19/16 11/20/16 Range/Units 16:52 21:11 05:38 POC Glucose (mg/dL) 190 H 223 H 177 H (75-99) mg/dL 11/20/16 Range/Units 11:49 POC Glucose (mg/dL) 169 H (75-99) mg/dL Assessment and Plan (1) COPD (chronic obstructive pulmonary disease) with emphysema Status: Acute (2) Acute exacerbation of chronic obstructive airways disease Status: Acute (3) Anxiety Status: Acute (4) COPD (chronic obstructive pulmonary disease) Status: Acute (5) COPD exacerbation Status: Acute (6) High risk for readmission Status: Acute Plan: plan dated 11/19/2016 The patient will be placed on all the appropriate medications including short acting beta agonist short acting muscarinic antagonist and inhaled corticosteroids long-acting beta agonist systemic corticosteroids and antibiotics. Prognosis is guarded. Plan dated 11/20/2016 The patient's medications were adjusted yesterday. She is on short acting beta agonist long-acting beta agonist short acting muscarinic antagonist and inhaled corticosteroids. In addition, she is on systemic corticosteroids and antibiotics. Additional recommendations suggestions are forthcoming. Prognosis is guarded. She stable enough to be transferred down to the fourth floor. The hospitalist with deal with the pain issues. Time with Patient: Less than 30
--- NOTE | 2016-11-20 14:24 | PN ---
The patient is a 46-year-old admitted with COPD exacerbation. Patient continues to be on BiPAP. Patient is complaining of severe pain in the chest because of coughing and requesting intravenous opiates for pain, although I do not believe it is not necessary. Patient specifically requesting Dilaudid. Increase the frequency of [place]. REVIEW OF SYSTEMS: CHEST: As mentioned with chest pain as mentioned above. CARDIOVASCULAR: Chest pain as mentioned above. No orthopnea, no PND, no palpitations. PULMONARY: Denied any shortness of breath. No cough or hemoptysis. GASTROINTESTINAL: No diarrhea, nausea or vomiting. No abdominal pain. Normoactive bowel sounds. NEUROLOGIC: No headaches, no weakness, no numbness. Medications were reviewed. PHYSICAL EXAMINATION: VITAL SIGNS: Temperature 97.2, pulse of 100, respiratory rate 22, blood pressure 164/86, saturating at 95% on BiPAP. GENERAL: The patient is alert and oriented x3, not in any acute distress. Well developed, well nourished. HEENT: Pupils are round and equally reacting to light. EOMI. No scleral icterus. No conjunctival pallor. Normocephalic, atraumatic. No pharyngeal erythema. No thyromegaly. CARDIOVASCULAR: S1 and S2 present. No murmurs, rubs, or gallops. PULMONARY: Decreased air entry into bilateral lung cagle. No wheezing was appreciated. No crackles were appreciated. ABDOMEN: Soft, nontender, nondistended, normoactive bowel sounds. No palpable organomegaly. MUSCULOSKELETAL: No joint swelling or deformity. EXTREMITIES: No cyanosis, clubbing, or pedal edema. NEUROLOGICAL: Gross neurological examination did not reveal any focal deficits. SKIN: No rashes. LABORATORY DATA: None available from today. ASSESSMENT AND PLAN: 1. Acute on chronic hypercapnic respiratory failure secondary to chronic obstructive pulmonary disease exacerbation. Patient is presently requiring BiPAP. 2. Gastroesophageal reflux disease. 3. Chest pain, musculoskeletal in nature, from coughing. 4. Severe cachexia secondary to chronic obstructive pulmonary disease. 5. Restless leg syndrome. 6. Depression. Plan is to continue with systemic steroids, inhalational treatments, taper off oxygen and continue with BiPAP for now.
[2016-11-20 17:14] LABS: Glucose,Whole Blood 194 mg/dL (75-99)
[2016-11-20 21:15] LABS: Glucose,Whole Blood 204 mg/dL (75-99)
[2016-11-20] MEDS: ASPIRIN 325 MG TAB PO SCH (21:42)
[2016-11-20] MEDS: buPROPion SR 150 MG TABLET.ER PO SCH (21:43)
[2016-11-20] MEDS: risperiDONE 1 MG TAB PO SCH (21:43)
[2016-11-20] MEDS: traZODone HCL 100 MG TAB PO SCH (21:45)
[2016-11-21] MEDS: IPRATROPIUM-ALBUTEROL 3 ML NEB INHALATION SCH ×6 (03:19→23:38)
[2016-11-21] MEDS: HYDROcodone/APAP 10-325MG 1 EACH TAB PO PRN ×5 (04:44→21:46)
[2016-11-21 05:53] LABS: Glucose,Whole Blood 200 mg/dL (75-99)
[2016-11-21] MEDS: ALPRAZolam 0.25 MG TAB PO PRN ×3 (06:00→21:46)
[2016-11-21] MEDS: methylPREDNISolone SOD SUCCI 125 MG/2 ML VIAL IV SCH ×4 (06:00→23:03)
[2016-11-21] MEDS: PANTOPRAZOLE 40 MG TABLET PO SCH ×2 (06:31→16:38)
[2016-11-21] MEDS: INSULIN LISPRO (humaLOG) 300 UNIT/3 ML VIAL SQ SCH ×4 (06:31→21:46)
[2016-11-21 06:40] LABS: CH 26.4; CHCM 29.9; HCT 35.5 % (34.0-46.0); HDW 2.91; HGB 10.7 gm/dL (11.4-16.0); Hypochromasia Marked; MCH 26.7 pg (25.0-35.0); MCHC 30.1 g/dL (31.0-37.0); MCV 88.6 fL (80.0-100.0); Mean Platelet Volume 6.2; RBC 4.01 m/uL (3.80-5.40); RDW 15.7 % (11.5-15.5); WBC 12.8 k/uL (3.8-10.6)
[2016-11-21 06:49] LABS: Blood Urea Nitrogen 26 mg/dL (7-17); Calcium 9.6 mg/dL (8.4-10.2); Chloride 95 mmol/L (98-107); Glucose 157 mg/dL (74-99); Non-African American GFR(MDRD) >60 (>60 ml/min/1.73 sqM); Sodium 138 mmol/L (137-145)
[2016-11-21 06:56] LABS: Anion Gap 5 mmol/L; Carbon Dioxide 38 mmol/L (22-30)
[2016-11-21] MEDS: DOXYCYCLINE 50 MG CAP PO SCH ×2 (07:42→21:44)
[2016-11-21] MEDS: MAGNESIUM OXIDE 400 MG TAB PO SCH (07:43)
[2016-11-21] MEDS: MULTIVITAMINS, THERA 1 EACH TAB PO SCH (07:43)
[2016-11-21] MEDS: THEOPHYLLINE 24 HOUR 300 MG CAP.ER.24H PO SCH ×2 (07:43→21:46)
[2016-11-21] MEDS: NYSTATIN 100,000 UNIT/ML SUSP 500,000 UNIT/5 ML CUP PO SCH ×4 (07:43→21:46)
[2016-11-21] MEDS: PREGABALIN 100 MG CAP PO SCH ×2 (07:43→21:45)
[2016-11-21] MEDS: BUDESONIDE 1 MG/2 ML NEBU INHALATION SCH ×2 (10:12→20:47)
[2016-11-21] MEDS: FORMOTEROL FUMARATE 20 MCG/2 ML NEBU INHALATION SCH ×2 (10:12→20:47)
[2016-11-21 11:51] LABS: Glucose,Whole Blood 229 mg/dL (75-99)
--- NOTE | 2016-11-21 11:58 | P.PN ---
Subjective 46-year-old female well-known to our service. She has a history of very severe oxygen dependent and end-stage COPD. She comes in every couple weeks or month complaining of increasing shortness of breath chest tightness wheezing and cough. She's typically admitted to the hospital for a couple days and discharged home. Also typical for this patient is a fact that she is always requesting pain medications. I refused to give her any. Is up to the hospitalist to see to give her pain medications. Anyway she's up on the sixth floor. She could be transferred down to the fourth floor. She did spend a fair a fair amount of time on BiPAP overnight. No cough no wheezing. Very short of breath. Very tachypneic and dyspneic. No chest pain or chest discomfort. Not coughing up significant phlegm or blood. Progress note dated 11/21/2016 46-year-old female with history of severe end-stage COPD. Unfortunately, she is noncompliant with medications. The patient was admitted with a diagnosis of COPD exacerbation in and was complaining of shortness of breath chest tightness chest congestion wheezing and cough. The patient is doing a bit better. His been on BiPAP for the first day and a half that she's been here in the hospital. The patient continues to show some improvement. Mostly complaining of a lot of pain. Objective - Vital Signs Vital signs: Vital Signs Temp 97.2 F L 11/21/16 07:40 Pulse 80 11/21/16 11:33 Resp 24 11/21/16 11:33 BP 127/66 11/21/16 11:33 Pulse Ox 94 L 11/21/16 11:33 Intake & Output 11/20/16 11/21/16 11/21/16 18:59 06:59 18:59 Intake Total 1640 240 540 Output Total 250 400 800 Balance 1390 -160 -260 Weight 46.9 kg Intake: Oral 1640 240 540 Output: Urine 250 400 800 Other: Voiding Method Bedside Commode Bedside Commode Bedside Commode - Exam No acute distress, oriented 3. Complaining about abdominal pain and chest pain. The nurses refusing to give her pain medication as his up to the hospitalist prescribed. HEENT examination is grossly unremarkable. Neck supple. Full range of motion. No adenopathy or thyromegaly. Cardiovascular examination reveals distant heart sounds. Heart rate about 90 S1 and S2 normal. No distinct murmurs noted. Lungs reveal a few scattered inspiratory and expiratory coarse rhonchi. Breath sounds are severely diminished throughout. Breath sounds are equal. Abdomen soft Extremities are intact. - Labs CBC & Chem 7: 11/21/16 06:18 11/21/16 06:18 Labs: Abnormal Lab Results - Last 24 Hours (Table) 11/20/16 11/20/16 11/21/16 Range/Units 17:05 21:14 05:52 WBC (3.8-10.6) k/uL Hgb (11.4-16.0) gm/dL MCHC (31.0-37.0) g/dL RDW (11.5-15.5) % Chloride (98-107) mmol/L Carbon Dioxide (22-30) mmol/L BUN (7-17) mg/dL Creatinine (0.52-1.04) mg/dL Glucose (74-99) mg/dL POC Glucose (mg/dL) 194 H 204 H 200 H (75-99) mg/dL 11/21/16 11/21/16 11/21/16 Range/Units 06:18 06:18 11:46 WBC 12.8 H (3.8-10.6) k/uL Hgb 10.7 L (11.4-16.0) gm/dL MCHC 30.1 L (31.0-37.0) g/dL RDW 15.7 H (11.5-15.5) % Chloride 95 L (98-107) mmol/L Carbon Dioxide 38 H (22-30) mmol/L BUN 26 H (7-17) mg/dL Creatinine 0.36 L (0.52-1.04) mg/dL Glucose 157 H (74-99) mg/dL POC Glucose (mg/dL) 229 H (75-99) mg/dL Assessment and Plan (1) COPD (chronic obstructive pulmonary disease) with emphysema Status: Acute (2) Acute exacerbation of chronic obstructive airways disease Status: Acute (3) Anxiety Status: Acute (4) COPD (chronic obstructive pulmonary disease) Status: Acute (5) COPD exacerbation Status: Acute (6) High risk for readmission Status: Acute Plan: plan dated 11/19/2016 The patient will be placed on all the appropriate medications including short acting beta agonist short acting muscarinic antagonist and inhaled corticosteroids long-acting beta agonist systemic corticosteroids and antibiotics. Prognosis is guarded. Plan dated 11/20/2016 The patient's medications were adjusted yesterday. She is on short acting beta agonist long-acting beta agonist short acting muscarinic antagonist and inhaled corticosteroids. In addition, she is on systemic corticosteroids and antibiotics. Additional recommendations suggestions are forthcoming. Prognosis is guarded. She stable enough to be transferred down to the fourth floor. The hospitalist with deal with the pain issues. Plan dated 11/21/2016 The patient's medications are reviewed. The patient was started on all the usual medications chronic systemic corticosteroids and antibiotics. The patient 's also a short acting beta agonists short acting muscarinic antagonist a long- acting beta agonist and inhaled corticosteroid. The primary service is managing her pain. Time with Patient: Less than 30
[2016-11-21 17:19] LABS: Glucose,Whole Blood 130 mg/dL (75-99)
--- NOTE | 2016-11-21 18:58 | PN ---
SUBJECTIVE/INTERVAL HISTORY: This is a 46-year-old patient with end-stage chronic obstructive pulmonary disease who was admitted to the hospital with an acute exacerbation of chronic obstructive pulmonary disease. Patient was noted to be in acute hypercapnic respiratory failure. Hence was started on BiPAP initially. Patient has had issues with chest pain secondary to excessive coughing, has been seen by Dr. Olivas. However, in regards to disagreement regarding receiving narcotics, I have taken over the care of her today. Patient was crying while I walked into the room. States that her pain is predominantly upper abdominal and around her chest cavity. States she does have a cough; however, it is nonproductive at this time. Denies having any headaches, blurry vision, nausea, vomiting, diarrhea. Medications today were reviewed. VITAL SIGNS: Temperature 97, heart rate is 78, respiratory rate 24, blood pressure 133/65. Saturating 95% on 50% FIO2. GENERAL APPEARANCE: Appears to be in some discomfort. Alert, oriented x3. HEAD: Atraumatic, normocephalic. Pupils are equal, round, and react to light and accommodation. The patient appears cachectic. Currently on BiPAP with setting of 10/5 with 50% FiO2. LUNGS: Air movement is appreciated today. No significant wheezing noted. HEART: Distant heart sounds. HEART: S1, S2 heard. No murmurs appreciated. ABDOMEN: Soft, nontender, no organomegaly when patient is distracted. LOWER EXTREMITIES: No edema in the lower extremities. NEUROLOGIC: No focal motor or sensory deficits noted. LABS: Today white count 12.8, hemoglobin 10.7, hematocrit 35.5, platelets of 446, sodium 138, potassium 4.5, chloride 35, bicarb is 38. BUN is 26, creatinine 0.36. ASSESSMENT AND PLAN: 1. Acute exacerbation of chronic obstructive pulmonary disease secondary to tracheobronchitis causing acute on chronic hypoxic hypercapnic respiratory failure in a patient with end-stage chronic obstructive pulmonary disease. 2. Opioid dependency. 3. Steroid-induced hyperglycemia. 4. Anxiety. 5. Remote history of bipolar depression. 6. Severe protein calorie malnutrition secondary to the above diagnosis. 7. History of significant tobacco use. 8. Restless leg syndrome. 9. Gastroesophageal reflux disease. PLAN: Continue with inhalation breathing treatments and steroid therapy and other medications including theophylline. Patient is improving. Continue with Doxycycline. In regards to pain management, patient does have long history of opioid dependency. I do agree with previous physician in regards to patient having opioid seeking behavior. We will decrease [place] 10 mg from q.4 to q.8 hours in light of fentanyl patch. This will not be continued on discharge. DVT prophylaxis. Continue with Protonix 40 mg b.i.d.
[2016-11-21 20:53] LABS: Glucose,Whole Blood 206 mg/dL (75-99)
[2016-11-21] MEDS: ASPIRIN 325 MG TAB PO SCH (21:43)
[2016-11-21] MEDS: buPROPion SR 150 MG TABLET.ER PO SCH (21:44)
[2016-11-21] MEDS: risperiDONE 1 MG TAB PO SCH (21:45)
[2016-11-21] MEDS: traZODone HCL 100 MG TAB PO SCH (21:46)
[2016-11-22] MEDS: IPRATROPIUM-ALBUTEROL 3 ML NEB INHALATION SCH ×5 (03:33→20:36)
[2016-11-22] MEDS: HYDROcodone/APAP 10-325MG 1 EACH TAB PO PRN ×3 (05:58→23:02)
[2016-11-22] MEDS: ALPRAZolam 0.25 MG TAB PO PRN ×3 (05:58→23:01)
[2016-11-22] MEDS: methylPREDNISolone SOD SUCCI 125 MG/2 ML VIAL IV SCH ×4 (06:00→23:02)
[2016-11-22 06:08] LABS: Glucose,Whole Blood 168 mg/dL (75-99)
[2016-11-22] MEDS: INSULIN LISPRO (humaLOG) 300 UNIT/3 ML VIAL SQ SCH ×4 (06:36→20:26)
[2016-11-22] MEDS: PANTOPRAZOLE 40 MG TABLET PO SCH ×2 (06:36→17:02)
[2016-11-22 06:40] LABS: Basophils % (A) 0 %; CH 26.4; Eosinophils # (A) 0.1 k/uL (0-0.7); Eosinophils % (A) 1 %; HCT 37.1 % (34.0-46.0); HDW 2.92; HGB 11.2 gm/dL (11.4-16.0); Hypochromasia Marked; Luc # (Auto) 0.18; Luc % (Auto) 2; Lymphocytes # (A) 0.7 k/uL (1.0-4.8); Lymphocytes % (A) 7 %; MCH 26.6 pg (25.0-35.0); MCHC 30.2 g/dL (31.0-37.0); MCV 88.1 fL (80.0-100.0); Monocytes # (A) 0.4 k/uL (0-1.0); Monocytes % (A) 4 %; Neutrophils # (A) 8.7 k/uL (1.3-7.7); Neutrophils % (A) 87 %; RBC 4.21 m/uL (3.80-5.40); RDW 15.8 % (11.5-15.5); WBC (Perox) 11.01
[2016-11-22 06:53] LABS: ALT 27 U/L (9-52); AST 15 U/L (14-36); Alkaline Phosphatase 61 U/L (38-126); Anion Gap 6 mmol/L; Blood Urea Nitrogen 33 mg/dL (7-17); Calcium 9.5 mg/dL (8.4-10.2); Carbon Dioxide 36 mmol/L (22-30); Chloride 97 mmol/L (98-107); Glucose 169 mg/dL (74-99); Non-African American GFR(MDRD) >60 (>60 ml/min/1.73 sqM); Sodium 139 mmol/L (137-145); Total Bilirubin 0.3 mg/dL (0.2-1.3); Total Protein 5.9 g/dL (6.3-8.2)
[2016-11-22] MEDS: PREGABALIN 100 MG CAP PO SCH ×2 (08:09→20:11)
[2016-11-22] MEDS: MAGNESIUM OXIDE 400 MG TAB PO SCH (08:09)
[2016-11-22] MEDS: DOXYCYCLINE 50 MG CAP PO SCH ×2 (08:09→20:11)
[2016-11-22] MEDS: MULTIVITAMINS, THERA 1 EACH TAB PO SCH (08:09)
[2016-11-22] MEDS: NYSTATIN 100,000 UNIT/ML SUSP 500,000 UNIT/5 ML CUP PO SCH ×4 (08:09→20:13)
[2016-11-22] MEDS: THEOPHYLLINE 24 HOUR 300 MG CAP.ER.24H PO SCH ×2 (08:54→23:01)
[2016-11-22] MEDS: BUDESONIDE 1 MG/2 ML NEBU INHALATION SCH ×2 (09:01→20:36)
[2016-11-22] MEDS: FORMOTEROL FUMARATE 20 MCG/2 ML NEBU INHALATION SCH ×2 (09:01→20:36)
[2016-11-22 11:40] LABS: Glucose,Whole Blood 107 mg/dL (75-99)
[2016-11-22 16:30] LABS: Glucose,Whole Blood 148 mg/dL (75-99)
--- NOTE | 2016-11-22 18:52 | P.PN ---
Subjective [place] 6-year-old here patient with advanced oxygen-dependent COPD coming in for another COPD exacerbation. The patient remains short of breath and bronchospastic and wheezy on today's evaluation. She is visiting the bedside BiPAP on and off during the day. She has been a chronic smoker Mrs. been one of them main triggers along with advanced COPD which currently seems to be end- stage. Her chest wall was hurting with deep breathing or movement. No nausea. No vomiting. No change in mental status. Objective - Vital Signs Vital signs: Vital Signs Temp 98.4 F 11/22/16 16:00 Pulse 108 H 11/22/16 16:24 Resp 18 11/22/16 16:00 BP 153/89 11/22/16 16:00 Pulse Ox 93 L 11/22/16 16:00 Intake & Output 11/21/16 11/22/16 11/22/16 18:59 06:59 18:59 Intake Total 232 112 9105 Output Total 800 800 600 Balance 180 -460 1300 Weight 46.4 kg 46.4 kg Intake: Oral 904 134 0590 Output: Urine 800 800 600 Other: Voiding Method Bedside Commode Bedside Commode Bedside Commode - Exam This is a thin and frail female patient who is very much cachectic malnourished and she seems to look way above her age. The patient does not have any excessive muscle breathing use however her breathing is labored even at rest.Head exam was generally normal. There was no scleral icterus or corneal arcus. Mucous membranes were moist.Neck was supple and without jugular venous distension, thyromegaly, or carotid bruits. Carotids were easily palpable bilaterally. There was no adenopathy. Lung sounds are diminished and there is prolongation of expiratory phase of breathing and scattered expiratory wheezes throughout the lung cagle bilaterally.Cardiac exam revealed the PMI to be normally situated and sized. The rhythm was regular and no extrasystoles were noted during several minutes of auscultation. The first and second heart sounds were normal and physiologic splitting of the second heart sound was noted. There were no murmurs, rubs, clicks, or gallops.Abdominal exam revealed normal bowel sounds. The abdomen was soft, non-tender, and without masses, organomegaly , or appreciable enlargement of the abdominal aorta.Examination of the extremities revealed easily palpable radial, femoral and pedal pulses. There was no cyanosis, clubbing or edema. - Labs CBC & Chem 7: 11/22/16 05:31 11/22/16 05:31 Labs: Abnormal Lab Results - Last 24 Hours (Table) 11/21/16 11/22/16 11/22/16 Range/Units 20:52 05:31 05:31 Hgb 11.2 L (11.4-16.0) gm/dL MCHC 30.2 L (31.0-37.0) g/dL RDW 15.8 H (11.5-15.5) % Neutrophils # 8.7 H (1.3-7.7) k/uL Lymphocytes # 0.7 L (1.0-4.8) k/uL Chloride 97 L (98-107) mmol/L Carbon Dioxide 36 H (22-30) mmol/L BUN 33 H (7-17) mg/dL Creatinine 0.40 L (0.52-1.04) mg/dL Glucose 169 H (74-99) mg/dL POC Glucose (mg/dL) 206 H (75-99) mg/dL Total Protein 5.9 L (6.3-8.2) g/dL Albumin 3.3 L (3.5-5.0) g/dL 11/22/16 11/22/16 11/22/16 Range/Units 06:07 11:39 16:29 Hgb (11.4-16.0) gm/dL MCHC (31.0-37.0) g/dL RDW (11.5-15.5) % Neutrophils # (1.3-7.7) k/uL Lymphocytes # (1.0-4.8) k/uL Chloride (98-107) mmol/L Carbon Dioxide (22-30) mmol/L BUN (7-17) mg/dL Creatinine (0.52-1.04) mg/dL Glucose (74-99) mg/dL POC Glucose (mg/dL) 168 H 107 H 148 H (75-99) mg/dL Total Protein (6.3-8.2) g/dL Albumin (3.5-5.0) g/dL Assessment and Plan Plan: Assessment 1 advanced end-stage COPD 2 acute worsening shortness of breath secondary to COPD exacerbation 3 multiple hospitalizations in the past secondary to COPD exacerbation. Also the patient has a previous history of MRSA pneumonia 4 chronic malnourishment and cachexia and weight loss 5 nicotine addiction/smoking. 6 hyperlipidemia 7 osteoarthritis 8 cervical and lumbar disc disease and spondylosis 9 chronic migraine 10 peptic ulcer disease/gastric ulcer 11 carpal tunnel disease 12 cervical cancer 13 depression 14 significant loss and total body protein mass Plan Continue same treatment. Long-term prognosis poor based on the above-mentioned comorbidities. The patient admits to smoke a few cigarettes on a daily basis. We'll continue using BiPAP on and off during the day to support her breathing. Continue the bronchodilators. Continue the high-dose steroids. Chest x-ray was reviewed and there is no evidence of pneumonia.
[2016-11-22] MEDS: risperiDONE 1 MG TAB PO SCH (20:11)
[2016-11-22] MEDS: buPROPion SR 150 MG TABLET.ER PO SCH (20:11)
[2016-11-22] MEDS: ASPIRIN 325 MG TAB PO SCH (20:11)
[2016-11-22] MEDS: traZODone HCL 100 MG TAB PO SCH (20:12)
[2016-11-22 20:26] LABS: Glucose,Whole Blood 253 mg/dL (75-99)
--- NOTE | 2016-11-22 23:24 | PN ---
SUBJECTIVE DATA: This is a 46-year-old female with advanced COPD, oxygen-dependent at home, who comes into the hospital with worsening and difficulty in breathing and significant wheezing. Chest x-ray did not reveal any pneumonic infiltrate. Patient was noted to be hypercapnic initially on admission. Patient was placed on BiPAP, breathing treatments, systemic and inhalational steroids. Patient's main complaint appears to be pain around her chest. Patient does have a long history of opioid dependency. With concern for her breathing and abuse, patient's home medications were continued. However, a fentanyl patch was also started. Today patient continues to complain of pain in her chest and requests IV medications. When I asked if there is any acute worsening of pain, patient states that her chest is sore and she gets tearful. PHYSICAL EXAM: VITALS: Temperature 98.4, heart rate 108, respiratory rate 18, blood pressure 153/89. Saturating 93% on 4 to 6 L supplemental oxygen. GENERAL APPEARANCE: Alert, oriented x3. Appears to be tearful, cachectic. LUNGS: Diminished breath sounds. No significant wheezing or rhonchi appreciated today. HEART: Distant heart sounds. S1, S2 heard. No murmurs appreciated. ABDOMEN: Soft, non-tender. No organomegaly. LOWER EXTREMITIES: No edema noted. NEUROLOGICAL EXAMINATION: No focal motor or sensory deficits noted. LABORATORY DATA: Hemoglobin 11.2, hematocrit 37.1. White count is 10. Platelets are 447. Sodium 139, potassium 5, chloride 97, bicarb 36. BUN 32, creatinine of 0.4. ASSESSMENT AND PLAN: 1. Acute on chronic hypoxic hypercapnic respiratory failure secondary to exacerbation of chronic obstructive pulmonary disease from acute tracheobronchitis. 2. Severe protein-calorie malnutrition secondary to above. 3. Opioid dependency. 4. Osteoarthritis. 5. Dyslipidemia. 6. Long history of tobacco use; quit about 3 months ago. 7. History of cervical cancer. 8. Major depression. 9. Degenerative disc disease in her cervical and lumbar spine. PLAN: Continue ongoing care. The patient apparently did admit to smoking a few cigarettes to the heavy equipment technician today. Will continue BiPAP and current treatment. Patient has advanced COPD. Prognosis extremely poor. Will need to assess the patient tomorrow in regards to clinical improvement if we consider discharge. At some point, patient should be considered for hospice, as patient's disease has progressively gotten worse and patient does not appear to help herself with smoking cessation as well. Hospice would provide the benefit of patient receiving frequent monitoring and thereafter symptomatic relief. Will discuss the case with the heavy equipment technician in regards to considering this and with the patient tomorrow.
[2016-11-23] MEDS: IPRATROPIUM-ALBUTEROL 3 ML NEB INHALATION SCH ×7 (00:13→23:39)
[2016-11-23 05:42] LABS: Glucose,Whole Blood 147 mg/dL (75-99)
[2016-11-23] MEDS: INSULIN LISPRO (humaLOG) 300 UNIT/3 ML VIAL SQ SCH ×4 (06:29→20:59)
[2016-11-23] MEDS: methylPREDNISolone SOD SUCCI 125 MG/2 ML VIAL IV SCH ×3 (06:29→17:11)
[2016-11-23] MEDS: PANTOPRAZOLE 40 MG TABLET PO SCH ×2 (06:29→17:10)
[2016-11-23] MEDS: THEOPHYLLINE 24 HOUR 300 MG CAP.ER.24H PO SCH ×2 (08:49→20:29)
[2016-11-23] MEDS: MULTIVITAMINS, THERA 1 EACH TAB PO SCH (08:49)
[2016-11-23] MEDS: DOXYCYCLINE 50 MG CAP PO SCH ×2 (08:49→20:28)
[2016-11-23] MEDS: NYSTATIN 100,000 UNIT/ML SUSP 500,000 UNIT/5 ML CUP PO SCH ×4 (08:49→20:29)
[2016-11-23] MEDS: PREGABALIN 100 MG CAP PO SCH ×2 (08:49→20:28)
[2016-11-23] MEDS: MAGNESIUM OXIDE 400 MG TAB PO SCH (08:49)
[2016-11-23] MEDS: HYDROcodone/APAP 10-325MG 1 EACH TAB PO PRN ×2 (09:00→17:10)
[2016-11-23] MEDS: BUDESONIDE 1 MG/2 ML NEBU INHALATION SCH ×2 (09:14→19:53)
[2016-11-23] MEDS: FORMOTEROL FUMARATE 20 MCG/2 ML NEBU INHALATION SCH ×2 (09:14→19:53)
[2016-11-23] MEDS: ALPRAZolam 0.25 MG TAB PO PRN ×2 (09:28→17:10)
[2016-11-23 11:52] LABS: Glucose,Whole Blood 149 mg/dL (75-99)
--- NOTE | 2016-11-23 12:17 | P.PN ---
Subjective 46-year-old here patient with advanced oxygen-dependent COPD coming in for another COPD exacerbation. The patient remains short of breath and bronchospastic and wheezy on today's evaluation. She is visiting the bedside BiPAP on and off during the day. She has been a chronic smoker Mrs. been one of them main triggers along with advanced COPD which currently seems to be end- stage. Her chest wall was hurting with deep breathing or movement. No nausea. No vomiting. No change in mental status. On 11/23/2016, the patient is less short of breath. She is still struggling however COPD exacerbation. She is using the BiPAP frequently during the day. Her chest is less sore. She remains bronchospastic and wheezy. Some ongoing slow progress in her COPD exacerbation although she remains quite ill and symptomatic. No fever. No chills. No change in mental status. No swelling lower extremities. The blood sugars are well controlled. She remains on high- dose IV Solu-Medrol 60 mg every push every 6 hours. Rest of the medication includes doxycycline as an empiric antibiotic coverage and DuoNeb treatments around the clock and Pulmicort Respules and Perforomist. Objective - Vital Signs Vital signs: Vital Signs Temp 97.7 F 11/23/16 11:35 Pulse 84 11/23/16 11:35 Resp 18 11/23/16 11:35 BP 121/76 11/23/16 11:35 Pulse Ox 97 11/23/16 11:35 Intake & Output 11/22/16 11/23/16 11/23/16 18:59 06:59 18:59 Intake Total 1900 500 180 Output Total 600 1700 Balance 1300 -1200 180 Weight 46.4 kg 46.9 kg Intake: Oral 1900 500 180 Output: Urine 600 1700 Other: Voiding Method Bedside Commode Bedside Commode Bedside Commode # Voids 3 - Exam This is a thin and frail female patient who is very much cachectic malnourished and she seems to look way above her age. The patient does not have any excessive muscle breathing use however her breathing is labored even at rest.Head exam was generally normal. There was no scleral icterus or corneal arcus. Mucous membranes were moist.Neck was supple and without jugular venous distension, thyromegaly, or carotid bruits. Carotids were easily palpable bilaterally. There was no adenopathy. Lung sounds are diminished and there is prolongation of expiratory phase of breathing and scattered expiratory wheezes throughout the lung cagle bilaterally.Cardiac exam revealed the PMI to be normally situated and sized. The rhythm was regular and no extrasystoles were noted during several minutes of auscultation. The first and second heart sounds were normal and physiologic splitting of the second heart sound was noted. There were no murmurs, rubs, clicks, or gallops.Abdominal exam revealed normal bowel sounds. The abdomen was soft, non-tender, and without masses, organomegaly , or appreciable enlargement of the abdominal aorta.Examination of the extremities revealed easily palpable radial, femoral and pedal pulses. There was no cyanosis, clubbing or edema. - Labs CBC & Chem 7: 11/22/16 05:31 11/22/16 05:31 Labs: Abnormal Lab Results - Last 24 Hours (Table) 11/22/16 11/22/16 11/23/16 Range/Units 16:29 20:24 05:41 POC Glucose (mg/dL) 148 H 253 H 147 H (75-99) mg/dL 11/23/16 Range/Units 11:49 POC Glucose (mg/dL) 149 H (75-99) mg/dL Assessment and Plan Plan: Assessment 1 advanced end-stage COPD 2 acute worsening shortness of breath secondary to COPD exacerbation 3 multiple hospitalizations in the past secondary to COPD exacerbation. Also the patient has a previous history of MRSA pneumonia 4 chronic malnourishment and cachexia and weight loss 5 nicotine addiction/smoking. 6 hyperlipidemia 7 osteoarthritis 8 cervical and lumbar disc disease and spondylosis 9 chronic migraine 10 peptic ulcer disease/gastric ulcer 11 carpal tunnel disease 12 cervical cancer 13 depression 14 significant loss and total body protein mass Plan Continue same treatment. No changes in medication regimen. Continued IV Solu Medrol. Continue the bronchodilators. BiPAP on and off during the day. We'll continue to follow. Long-term prognosis poor and the patient has advanced end- stage lung disease.
[2016-11-23 17:11] LABS: Glucose,Whole Blood 118 mg/dL (75-99)
--- NOTE | 2016-11-23 17:27 | P.PN ---
Subjective Principal diagnosis: Patient resting in bed complaints of uncontrolled pain. Pain medication changed from Fentynal to Dilaudid iv Objective - Vital Signs Vital signs: Vital Signs Temp 97.6 F 11/23/16 16:00 Pulse 88 11/23/16 16:36 Resp 18 11/23/16 16:00 BP 117/70 11/23/16 16:00 Pulse Ox 95 11/23/16 16:00 Intake & Output 11/22/16 11/23/16 11/23/16 18:59 06:59 18:59 Intake Total 1900 500 360 Output Total 600 1700 Balance 1300 -1200 360 Weight 46.4 kg 46.9 kg Intake: Oral 1900 500 360 Output: Urine 600 1700 Other: Voiding Method Bedside Commode Bedside Commode Bedside Commode # Voids 3 3 # Bowel Movements 1 - Constitutional General appearance: Present: mild distress - EENT Eyes: Present: PERRLA Ears: bilateral: normal - Neck Neck: Present: normal ROM - Respiratory Respiratory: bilateral: diminished, rhonchi - Cardiovascular Rhythm: regular - Gastrointestinal General gastrointestinal: Present: soft - Integumentary Integumentary: Present: normal - Neurologic Neurologic: Present: CNII-XII intact - Musculoskeletal Musculoskeletal: Present: generalized weakness - Psychiatric Psychiatric Comment(s): Patient tearful and crying Psychiatric: Present: A&O x's 3 - Labs CBC & Chem 7: 11/22/16 05:31 11/22/16 05:31 Labs: Abnormal Lab Results - Last 24 Hours (Table) 11/22/16 11/23/16 11/23/16 Range/Units 20:24 05:41 11:49 POC Glucose (mg/dL) 253 H 147 H 149 H (75-99) mg/dL 11/23/16 Range/Units 17:05 POC Glucose (mg/dL) 118 H (75-99) mg/dL - Imaging and Cardiology Chest x-ray: report reviewed Assessment and Plan Plan: Assessment acute and chronic COPD with tracheal bronchitis acute and chronic hypoxic hypercapnia respiratory failure end-stage chronic COPD Opioid dependency anxiety/depression bipolar severe protein calorie malnutrition tobacco abuse Plan continue consultation with the Dr Molina continue bronchodilators doxycycline steroids
[2016-11-23] MEDS: risperiDONE 1 MG TAB PO SCH (20:28)
[2016-11-23] MEDS: buPROPion SR 150 MG TABLET.ER PO SCH (20:28)
[2016-11-23] MEDS: traZODone HCL 100 MG TAB PO SCH (20:28)
[2016-11-23] MEDS: HYDROmorphone 1 MG/ML 1 ML SYRINGE IVP PRN (20:29)
[2016-11-23] MEDS: ASPIRIN 325 MG TAB PO SCH (20:29)
[2016-11-23 20:50] LABS: Glucose,Whole Blood 235 mg/dL (75-99)
[2016-11-24] MEDS: methylPREDNISolone SOD SUCCI 125 MG/2 ML VIAL IV SCH ×5 (00:51→23:22)
[2016-11-24] MEDS: HYDROmorphone 1 MG/ML 1 ML SYRINGE IVP PRN ×5 (00:52→21:17)
[2016-11-24] MEDS: IPRATROPIUM-ALBUTEROL 3 ML NEB INHALATION SCH ×6 (03:37→23:55)
[2016-11-24] MEDS: HYDROcodone/APAP 10-325MG 1 EACH TAB PO PRN (05:50)
[2016-11-24] MEDS: ALPRAZolam 0.25 MG TAB PO PRN ×3 (05:50→21:40)
[2016-11-24 05:51] LABS: Glucose,Whole Blood 148 mg/dL (75-99)
[2016-11-24] MEDS: PANTOPRAZOLE 40 MG TABLET PO SCH ×2 (06:37→17:03)
[2016-11-24] MEDS: INSULIN LISPRO (humaLOG) 300 UNIT/3 ML VIAL SQ SCH ×4 (06:37→21:27)
[2016-11-24] MEDS: BUDESONIDE 1 MG/2 ML NEBU INHALATION SCH ×2 (07:06→20:16)
[2016-11-24] MEDS: FORMOTEROL FUMARATE 20 MCG/2 ML NEBU INHALATION SCH ×2 (07:06→20:16)
[2016-11-24] MEDS: DOXYCYCLINE 50 MG CAP PO SCH ×2 (08:17→21:25)
[2016-11-24] MEDS: PREGABALIN 100 MG CAP PO SCH ×2 (08:17→21:25)
[2016-11-24] MEDS: MULTIVITAMINS, THERA 1 EACH TAB PO SCH (08:17)
[2016-11-24] MEDS: MAGNESIUM OXIDE 400 MG TAB PO SCH (08:17)
[2016-11-24] MEDS: THEOPHYLLINE 24 HOUR 300 MG CAP.ER.24H PO SCH ×2 (08:17→21:26)
[2016-11-24] MEDS: NYSTATIN 100,000 UNIT/ML SUSP 500,000 UNIT/5 ML CUP PO SCH ×4 (08:17→21:27)
[2016-11-24 12:08] LABS: Glucose,Whole Blood 129 mg/dL (75-99)
--- NOTE | 2016-11-24 12:29 | P.PN ---
Subjective Principal diagnosis: patient states she has some improvement today requesting that she be able to stand hospital one more day continue consultation with Dr. Molina Objective - Vital Signs Vital signs: Vital Signs Temp 97.6 F 11/24/16 11:41 Pulse 79 11/24/16 11:41 Resp 18 11/24/16 11:41 BP 127/84 11/24/16 11:41 Pulse Ox 98 11/24/16 11:41 Intake & Output 11/23/16 11/24/16 11/24/16 18:59 06:59 18:59 Intake Total 540 640 760 Output Total 1200 Balance -660 640 760 Weight 46.8 kg Intake: Oral 540 640 760 Output: Urine 1200 Other: Voiding Method Bedside Commode Toilet Toilet # Voids 3 # Bowel Movements 1 - Constitutional General appearance: Present: thin - EENT Eyes: Present: PERRLA Ears: bilateral: normal - Neck Neck: Present: normal ROM - Respiratory Respiratory: bilateral: wheezing - Cardiovascular Rhythm: regular - Gastrointestinal General gastrointestinal: Present: soft - Integumentary Integumentary: Present: normal - Musculoskeletal Musculoskeletal: Present: generalized weakness - Psychiatric Psychiatric: Present: A&O x's 3, appropriate affect, intact judgment & insight - Labs CBC & Chem 7: 11/22/16 05:31 11/22/16 05:31 Labs: Abnormal Lab Results - Last 24 Hours (Table) 11/23/16 11/23/16 11/24/16 Range/Units 17:05 20:48 05:49 POC Glucose (mg/dL) 118 H 235 H 148 H (75-99) mg/dL 11/24/16 Range/Units 11:41 POC Glucose (mg/dL) 129 H (75-99) mg/dL - Imaging and Cardiology Chest x-ray: report reviewed Assessment and Plan Plan: assessment Acute on chronic COPD with chronic hypoxic hypercapnic respiratory failure end- stage chronic COPD Opioid dependency Anxiety/bipolar Severe protein calorie malnutrition secondary to COPD Significant tobacco use GERD Plan Continue with bronchodilators doxycycline and steroids Continue consultation with Dr. Molina
[2016-11-24 17:17] LABS: Glucose,Whole Blood 234 mg/dL (75-99)
--- NOTE | 2016-11-24 19:48 | P.PN ---
Subjective 46-year-old here patient with advanced oxygen-dependent COPD coming in for another COPD exacerbation. The patient remains short of breath and bronchospastic and wheezy on today's evaluation. She is visiting the bedside BiPAP on and off during the day. She has been a chronic smoker Mrs. been one of them main triggers along with advanced COPD which currently seems to be end- stage. Her chest wall was hurting with deep breathing or movement. No nausea. No vomiting. No change in mental status. On 11/23/2016, the patient is less short of breath. She is still struggling however COPD exacerbation. She is using the BiPAP frequently during the day. Her chest is less sore. She remains bronchospastic and wheezy. Some ongoing slow progress in her COPD exacerbation although she remains quite ill and symptomatic. No fever. No chills. No change in mental status. No swelling lower extremities. The blood sugars are well controlled. She remains on high- dose IV Solu-Medrol 60 mg every push every 6 hours. Rest of the medication includes doxycycline as an empiric antibiotic coverage and DuoNeb treatments around the clock and Pulmicort Respules and Perforomist. On 11/24/2016 I'm seeing Ameena in follow-up. She is improved. She is less short of breath. She is able to speak longer sentences without having to stop or have shortness of breath. No reported fever or chills. No reported chest pain. She is gradually improving. No other significant events over the past 24 hours. Objective - Vital Signs Vital signs: Vital Signs Temp 97.6 F 11/24/16 16:00 Pulse 79 11/24/16 16:00 Resp 18 11/24/16 16:00 BP 144/88 11/24/16 16:00 Pulse Ox 98 11/24/16 16:00 Intake & Output 11/24/16 11/24/16 11/25/16 06:59 18:59 06:59 Intake Total 640 1020 Balance 640 1020 Weight 46.8 kg Intake: Oral 640 1020 Other: Voiding Method Toilet Toilet - Exam This is a thin and frail female patient who is very much cachectic malnourished and she seems to look way above her age. The patient does not have any excessive muscle breathing use however her breathing is labored even at rest.Head exam was generally normal. There was no scleral icterus or corneal arcus. Mucous membranes were moist.Neck was supple and without jugular venous distension, thyromegaly, or carotid bruits. Carotids were easily palpable bilaterally. There was no adenopathy. Lung sounds are diminished and there is prolongation of expiratory phase of breathing and scattered expiratory wheezes throughout the lung cagle bilaterally.Cardiac exam revealed the PMI to be normally situated and sized. The rhythm was regular and no extrasystoles were noted during several minutes of auscultation. The first and second heart sounds were normal and physiologic splitting of the second heart sound was noted. There were no murmurs, rubs, clicks, or gallops.Abdominal exam revealed normal bowel sounds. The abdomen was soft, non-tender, and without masses, organomegaly , or appreciable enlargement of the abdominal aorta.Examination of the extremities revealed easily palpable radial, femoral and pedal pulses. There was no cyanosis, clubbing or edema. - Labs CBC & Chem 7: 11/22/16 05:31 11/22/16 05:31 Labs: Abnormal Lab Results - Last 24 Hours (Table) 11/23/16 11/24/16 11/24/16 Range/Units 20:48 05:49 11:41 POC Glucose (mg/dL) 235 H 148 H 129 H (75-99) mg/dL 11/24/16 Range/Units 17:01 POC Glucose (mg/dL) 234 H (75-99) mg/dL Assessment and Plan Plan: Assessment 1 advanced end-stage COPD 2 acute worsening shortness of breath secondary to COPD exacerbation 3 multiple hospitalizations in the past secondary to COPD exacerbation. Also the patient has a previous history of MRSA pneumonia 4 chronic malnourishment and cachexia and weight loss 5 nicotine addiction/smoking. 6 hyperlipidemia 7 osteoarthritis 8 cervical and lumbar disc disease and spondylosis 9 chronic migraine 10 peptic ulcer disease/gastric ulcer 11 carpal tunnel disease 12 cervical cancer 13 depression 14 significant loss and total body protein mass Plan Clinically improving. Continue same treatment. The patient advanced COPD. Anticipate slow progress although much improved over the past 24 hours. We'll continue to follow. No changes in the medication will be done for today.
[2016-11-24 20:36] LABS: Glucose,Whole Blood 135 mg/dL (75-99)
[2016-11-24] MEDS: ASPIRIN 325 MG TAB PO SCH (21:24)
[2016-11-24] MEDS: buPROPion SR 150 MG TABLET.ER PO SCH (21:25)
[2016-11-24] MEDS: risperiDONE 1 MG TAB PO SCH (21:25)
[2016-11-24] MEDS: traZODone HCL 100 MG TAB PO SCH (21:26)
[2016-11-25] MEDS: HYDROmorphone 1 MG/ML 1 ML SYRINGE IVP PRN ×6 (01:14→22:24)
[2016-11-25] MEDS: IPRATROPIUM-ALBUTEROL 3 ML NEB INHALATION SCH ×5 (03:48→21:41)
[2016-11-25] MEDS: methylPREDNISolone SOD SUCCI 125 MG/2 ML VIAL IV SCH ×4 (05:57→23:05)
[2016-11-25 06:16] LABS: Glucose,Whole Blood 184 mg/dL (75-99)
[2016-11-25] MEDS: PANTOPRAZOLE 40 MG TABLET PO SCH ×2 (06:18→16:59)
[2016-11-25] MEDS: INSULIN LISPRO (humaLOG) 300 UNIT/3 ML VIAL SQ SCH ×4 (06:18→20:54)
[2016-11-25] MEDS: ALPRAZolam 0.25 MG TAB PO PRN ×2 (06:24→17:07)
[2016-11-25] MEDS: BUDESONIDE 1 MG/2 ML NEBU INHALATION SCH ×2 (07:14→21:41)
[2016-11-25] MEDS: FORMOTEROL FUMARATE 20 MCG/2 ML NEBU INHALATION SCH ×2 (07:14→21:41)
[2016-11-25] MEDS: DOXYCYCLINE 50 MG CAP PO SCH ×2 (09:09→20:54)
[2016-11-25] MEDS: NYSTATIN 100,000 UNIT/ML SUSP 500,000 UNIT/5 ML CUP PO SCH ×4 (09:09→20:53)
[2016-11-25] MEDS: MAGNESIUM OXIDE 400 MG TAB PO SCH (09:09)
[2016-11-25] MEDS: PREGABALIN 100 MG CAP PO SCH ×2 (09:09→20:54)
[2016-11-25] MEDS: MULTIVITAMINS, THERA 1 EACH TAB PO SCH (09:09)
[2016-11-25] MEDS: THEOPHYLLINE 24 HOUR 300 MG CAP.ER.24H PO SCH ×2 (09:09→20:54)
[2016-11-25 11:48] LABS: Glucose,Whole Blood 125 mg/dL (75-99)
--- NOTE | 2016-11-25 12:31 | P.PN ---
Subjective Principal diagnosis: Patient continues with persistent expiratory wheeze hopeful discharge soon Objective - Vital Signs Vital signs: Vital Signs Temp 97.7 F 11/25/16 11:10 Pulse 88 11/25/16 11:19 Resp 20 11/25/16 11:10 BP 134/85 11/25/16 11:10 Pulse Ox 99 11/25/16 11:10 Intake & Output 11/24/16 11/25/16 11/25/16 18:59 06:59 18:59 Intake Total 1020 180 Balance 1020 180 Weight 47.5 kg Intake: Oral 1020 180 Other: Voiding Method Toilet Toilet Toilet # Voids 1 - Constitutional General appearance: Present: mild distress, thin - EENT Eyes: Present: PERRLA Ears: bilateral: normal - Neck Neck: Present: normal ROM - Respiratory Respiratory: bilateral: wheezing - Cardiovascular Rhythm: regular - Gastrointestinal General gastrointestinal: Present: soft - Integumentary Integumentary: Present: normal - Neurologic Neurologic: Present: CNII-XII intact - Musculoskeletal Musculoskeletal: Present: generalized weakness - Psychiatric Psychiatric: Present: A&O x's 3, appropriate affect, intact judgment & insight - Labs CBC & Chem 7: 11/22/16 05:31 11/22/16 05:31 Labs: Abnormal Lab Results - Last 24 Hours (Table) 11/24/16 11/24/16 11/25/16 Range/Units 17:01 20:32 06:03 POC Glucose (mg/dL) 234 H 135 H 184 H (75-99) mg/dL 11/25/16 Range/Units 11:25 POC Glucose (mg/dL) 125 H (75-99) mg/dL Assessment and Plan Plan: Assessment Acute on chronic COPD with tracheobronchitis acute on chronic hypoxic hyper Respirations failure with end-stage COPD Opioid dependency Steroid-induced hyperglycemia Anxiety/depression bipolar severe protein calorie malnutrition secondary to the above Tobacco use restless leg syndrome GERD Plan Continue consultation with pulmonology on bronchodilators doxycycline and steroid therapy
[2016-11-25 17:10] LABS: Glucose,Whole Blood 167 mg/dL (75-99)
--- NOTE | 2016-11-25 17:23 | P.PN ---
Subjective 46-year-old here patient with advanced oxygen-dependent COPD coming in for another COPD exacerbation. The patient remains short of breath and bronchospastic and wheezy on today's evaluation. She is visiting the bedside BiPAP on and off during the day. She has been a chronic smoker Mrs. been one of them main triggers along with advanced COPD which currently seems to be end- stage. Her chest wall was hurting with deep breathing or movement. No nausea. No vomiting. No change in mental status. On 11/23/2016, the patient is less short of breath. She is still struggling however COPD exacerbation. She is using the BiPAP frequently during the day. Her chest is less sore. She remains bronchospastic and wheezy. Some ongoing slow progress in her COPD exacerbation although she remains quite ill and symptomatic. No fever. No chills. No change in mental status. No swelling lower extremities. The blood sugars are well controlled. She remains on high- dose IV Solu-Medrol 60 mg every push every 6 hours. Rest of the medication includes doxycycline as an empiric antibiotic coverage and DuoNeb treatments around the clock and Pulmicort Respules and Perforomist. On 11/24/2016 I'm seeing Ameena in follow-up. She is improved. She is less short of breath. She is able to speak longer sentences without having to stop or have shortness of breath. No reported fever or chills. No reported chest pain. She is gradually improving. No other significant events over the past 24 hours. On 11/25/2016, the patient is less short of breath. She is obviously improving. I think she may need another 24 hours of treatment in an inpatient basis with systemic steroids. She is breathing easier. No chest pain. No change in mental status. No other significant events over the past 24 hours. Objective - Vital Signs Vital signs: Vital Signs Temp 97.5 F L 11/25/16 16:00 Pulse 93 11/25/16 16:00 Resp 20 11/25/16 16:00 BP 119/71 11/25/16 16:00 Pulse Ox 98 11/25/16 16:00 Intake & Output 11/24/16 11/25/16 11/25/16 18:59 06:59 18:59 Intake Total 1020 180 Balance 1020 180 Weight 47.5 kg Intake: Oral 1020 180 Other: Voiding Method Toilet Toilet Toilet # Voids 1 - Exam This is a thin and frail female patient who is very much cachectic malnourished and she seems to look way above her age. The patient does not have any excessive muscle breathing use however her breathing is labored even at rest.Head exam was generally normal. There was no scleral icterus or corneal arcus. Mucous membranes were moist.Neck was supple and without jugular venous distension, thyromegaly, or carotid bruits. Carotids were easily palpable bilaterally. There was no adenopathy. Lung sounds are diminished and there is prolongation of expiratory phase of breathing and scattered expiratory wheezes throughout the lung cagle bilaterally.Cardiac exam revealed the PMI to be normally situated and sized. The rhythm was regular and no extrasystoles were noted during several minutes of auscultation. The first and second heart sounds were normal and physiologic splitting of the second heart sound was noted. There were no murmurs, rubs, clicks, or gallops.Abdominal exam revealed normal bowel sounds. The abdomen was soft, non-tender, and without masses, organomegaly , or appreciable enlargement of the abdominal aorta.Examination of the extremities revealed easily palpable radial, femoral and pedal pulses. There was no cyanosis, clubbing or edema. - Labs CBC & Chem 7: 11/22/16 05:31 11/22/16 05:31 Labs: Abnormal Lab Results - Last 24 Hours (Table) 11/24/16 11/25/16 11/25/16 Range/Units 20:32 06:03 11:25 POC Glucose (mg/dL) 135 H 184 H 125 H (75-99) mg/dL 11/25/16 Range/Units 16:47 POC Glucose (mg/dL) 167 H (75-99) mg/dL Assessment and Plan Plan: Assessment 1 advanced end-stage COPD, improving slowly 2 acute worsening shortness of breath secondary to COPD exacerbation 3 multiple hospitalizations in the past secondary to COPD exacerbation. Also the patient has a previous history of MRSA pneumonia 4 chronic malnourishment and cachexia and weight loss 5 nicotine addiction/smoking. 6 hyperlipidemia 7 osteoarthritis 8 cervical and lumbar disc disease and spondylosis 9 chronic migraine 10 peptic ulcer disease/gastric ulcer 11 carpal tunnel disease 12 cervical cancer 13 depression 14 significant loss and total body protein mass Plan Clinically improving. Continue same treatment. Consider discharging this patient home tomorrow on a prednisone burst taper.Her BiPAP therapy at this point. Continue bronchodilators. We'll continue to follow.
[2016-11-25 20:32] LABS: Glucose,Whole Blood 204 mg/dL (75-99)
[2016-11-25] MEDS: ASPIRIN 325 MG TAB PO SCH (20:54)
[2016-11-25] MEDS: risperiDONE 1 MG TAB PO SCH (20:54)
[2016-11-25] MEDS: traZODone HCL 100 MG TAB PO SCH (20:54)
[2016-11-25] MEDS: buPROPion SR 150 MG TABLET.ER PO SCH (20:54)
[2016-11-26] MEDS: IPRATROPIUM-ALBUTEROL 3 ML NEB INHALATION SCH ×4 (01:14→11:27)
[2016-11-26] MEDS: HYDROmorphone 1 MG/ML 1 ML SYRINGE IVP PRN ×4 (02:27→14:35)
[2016-11-26 04:30] VITALS: RESP 18
[2016-11-26 05:51] LABS: Glucose,Whole Blood 145 mg/dL (75-99)
[2016-11-26] MEDS: PANTOPRAZOLE 40 MG TABLET PO SCH (06:12)
[2016-11-26] MEDS: methylPREDNISolone SOD SUCCI 125 MG/2 ML VIAL IV SCH ×2 (06:12→12:09)
[2016-11-26] MEDS: INSULIN LISPRO (humaLOG) 300 UNIT/3 ML VIAL SQ SCH ×2 (06:13→12:09)
[2016-11-26] MEDS: BUDESONIDE 1 MG/2 ML NEBU INHALATION SCH (08:10)
[2016-11-26] MEDS: FORMOTEROL FUMARATE 20 MCG/2 ML NEBU INHALATION SCH (08:11)
[2016-11-26] MEDS: THEOPHYLLINE 24 HOUR 300 MG CAP.ER.24H PO SCH (09:04)
[2016-11-26] MEDS: PREGABALIN 100 MG CAP PO SCH (09:05)
[2016-11-26] MEDS: MAGNESIUM OXIDE 400 MG TAB PO SCH (09:05)
[2016-11-26] MEDS: DOXYCYCLINE 50 MG CAP PO SCH (09:05)
[2016-11-26] MEDS: NYSTATIN 100,000 UNIT/ML SUSP 500,000 UNIT/5 ML CUP PO SCH ×2 (09:05→12:09)
[2016-11-26] MEDS: MULTIVITAMINS, THERA 1 EACH TAB PO SCH (09:05)
[2016-11-26 09:09] VITALS: TEMP 98.4
[2016-11-26 11:29] VITALS: PULSE 78
[2016-11-26 11:32] LABS: Glucose,Whole Blood 140 mg/dL (75-99)
[2016-11-26 14:20] VITALS: BP 138/91
--- NOTE | 2016-11-26 14:22 | P.PN ---
Subjective 46-year-old here patient with advanced oxygen-dependent COPD coming in for another COPD exacerbation. The patient remains short of breath and bronchospastic and wheezy on today's evaluation. She is visiting the bedside BiPAP on and off during the day. She has been a chronic smoker Mrs. been one of them main triggers along with advanced COPD which currently seems to be end- stage. Her chest wall was hurting with deep breathing or movement. No nausea. No vomiting. No change in mental status. On 11/23/2016, the patient is less short of breath. She is still struggling however COPD exacerbation. She is using the BiPAP frequently during the day. Her chest is less sore. She remains bronchospastic and wheezy. Some ongoing slow progress in her COPD exacerbation although she remains quite ill and symptomatic. No fever. No chills. No change in mental status. No swelling lower extremities. The blood sugars are well controlled. She remains on high- dose IV Solu-Medrol 60 mg every push every 6 hours. Rest of the medication includes doxycycline as an empiric antibiotic coverage and DuoNeb treatments around the clock and Pulmicort Respules and Perforomist. On 11/24/2016 I'm seeing Ameena in follow-up. She is improved. She is less short of breath. She is able to speak longer sentences without having to stop or have shortness of breath. No reported fever or chills. No reported chest pain. She is gradually improving. No other significant events over the past 24 hours. On 11/25/2016, the patient is less short of breath. She is obviously improving. I think she may need another 24 hours of treatment in an inpatient basis with systemic steroids. She is breathing easier. No chest pain. No change in mental status. No other significant events over the past 24 hours. The patient is seen again today 11/26/2016 in follow-up on the selective care unit. She's been up ambulating in the hallway. She is doing quite a bit better. She denies any worsening shortness of breath, cough or congestion. She is back to her baseline. Objective - Vital Signs Vital signs: Vital Signs Temp 98.4 F 11/26/16 08:00 Pulse 78 11/26/16 11:39 Resp 18 11/26/16 04:00 BP 121/69 11/26/16 08:00 Pulse Ox 98 11/26/16 08:00 Intake & Output 11/25/16 11/26/16 11/26/16 18:59 06:59 18:59 Intake Total 600 1340 Balance 600 1340 Weight 48.3 kg Intake: Oral 600 1340 Other: Voiding Method Toilet Toilet # Voids 1 - Exam This is a thin and frail female patient who is very much cachectic malnourished and she seems to look way above her age. The patient does not have any excessive muscle breathing use however her breathing is labored even at rest.Head exam was generally normal. There was no scleral icterus or corneal arcus. Mucous membranes were moist.Neck was supple and without jugular venous distension, thyromegaly, or carotid bruits. Carotids were easily palpable bilaterally. There was no adenopathy. Lung sounds are diminished and there is prolongation of expiratory phase of breathing and scattered expiratory wheezes throughout the lung cagle bilaterally.Cardiac exam revealed the PMI to be normally situated and sized. The rhythm was regular and no extrasystoles were noted during several minutes of auscultation. The first and second heart sounds were normal and physiologic splitting of the second heart sound was noted. There were no murmurs, rubs, clicks, or gallops.Abdominal exam revealed normal bowel sounds. The abdomen was soft, non-tender, and without masses, organomegaly , or appreciable enlargement of the abdominal aorta.Examination of the extremities revealed easily palpable radial, femoral and pedal pulses. There was no cyanosis, clubbing or edema. - Labs CBC & Chem 7: 11/22/16 05:31 11/22/16 05:31 Labs: Abnormal Lab Results - Last 24 Hours (Table) 11/25/16 11/25/16 11/26/16 Range/Units 16:47 20:30 05:48 POC Glucose (mg/dL) 167 H 204 H 145 H (75-99) mg/dL 11/26/16 Range/Units 11:30 POC Glucose (mg/dL) 140 H (75-99) mg/dL Assessment and Plan Plan: Assessment 1 advanced end-stage COPD, improving slowly 2 acute worsening shortness of breath secondary to COPD exacerbation 3 multiple hospitalizations in the past secondary to COPD exacerbation. Also the patient has a previous history of MRSA pneumonia 4 chronic malnourishment and cachexia and weight loss 5 nicotine addiction/smoking. 6 hyperlipidemia 7 osteoarthritis 8 cervical and lumbar disc disease and spondylosis 9 chronic migraine 10 peptic ulcer disease/gastric ulcer 11 carpal tunnel disease 12 cervical cancer 13 depression 14 significant loss and total body protein mass Plan The patient was seen and evaluated by Dr. Molina. She is cleared for discharge from the pulmonary standpoint. She'll continue with her usual pulmonary medications including the prednisone taper and complete her course of antibiotics. She'll be seen in our office within 1-2 weeks' time. She is again encouraged regarding the importance of complete smoking cessation as well as avoiding all secondhand smoke. She is quite fragile and end-stage from the COPD standpoint and she is encouraged to call sooner with any recurrence of symptoms or any other questions or concerns.
[2016-11-26 14:33] VITALS: BMI 18.2
--- NOTE | 2016-11-26 17:01 | DS ---
DATE OF ADMISSION: 11/19/2016 DATE OF DISCHARGE: 11/26/2016 FINAL DIAGNOSES: 1. Chronic obstructive pulmonary disease, acute exacerbation, with purulent tracheobronchitis with acute hypoxic hypercarbic respiratory failure, present on admission. 2. Chronic hypoxic hypercarbic respiratory failure, on home oxygen. 3. Multiple hospitalizations and also previous history of methicillin-resistant Staphylococcus aureus pneumonia. 4. Moderate to severe protein-calorie malnutrition with a body mass index of 18.3. 5. History of gastroesophageal reflux disease. 6. Hyperlipidemia. 7. History of degenerative joint disease. 8. History of chronic migraines. 9. Peptic ulcer disease. 10. History of cervical cancer. 11. History of methicillin-resistant Staphylococcus aureus. 12. History of cholecystectomy. 13. Anxiety, bipolar depression. 14. History of tetrahydrocannabinol. 15. FULL CODE. DISCHARGE DISPOSITION: The patient will be discharged in stable condition with guarded prognosis. Total time taken 35 minutes. HISTORY OF PRESENT ILLNESS: This 46-year-old woman with a past history of multiple medical problems, being followed by Dr. Italo John in the outpatient setting, was admitted with COPD, acute exacerbation, tracheobronchitis and respiratory failure. Patient was treated symptomatically with bronchodilators and steroids. Patient improved significantly. On exam, alert and oriented x3. Vitals are stable. CARDIOVASCULAR SYSTEM: S1, S2 muffled. RESPIRATORY SYSTEM: A few scattered rhonchi and crackles. ABDOMEN: Soft. NERVOUS SYSTEM: No focal deficit. DISCHARGE ADVICE AND MEDICATIONS: 1. Discharge diet is cardiac. 2. Activity limited until followup. 3. Follow up with Dr. Italo John in 2 to 3 days. 4. Follow up with Dr. Molina. 5. Follow up with Home Care. 6. Xanax 0.25 t.i.d. p.r.n. 7. Ventolin HFA 1 to 2 puffs q.i.d. p.r.n. 8. Ventolin nebulizer 2.5 q.i.d. 9. Aspirin 325 mg at bedtime. 10. Symbicort 160/4.5 two puffs b.i.d. 11. Vibramycin 100 mg p.o. b.i.d. for 5 days. 12. Hydrocodone 10 mg t.i.d. p.r.n. 13. Atrovent 2 puffs q.i.d. 14. Magnesium oxide 400 mg p.o. daily. 15. Multivitamin 1 p.o. daily. 16. Nystatin 500,000 p.o. 5 mL q.i.d. for 5 days. 17. Prilosec 40 mg p.o. b.i.d. 18. Lyrica 100 mg p.o. b.i.d. 19. Akhil-24 300 mg p.o. b.i.d. 20. Wellbutrin SR 150 mg p.o. at bedtime. 21. Prednisone taper: 40 mg daily for 3 days; 30 mg daily for 3 days; 20 mg daily for 3 days; 10 mg daily for 3 days; then stop. 22. Requip 0.5 mg p.o. at bedtime. 23. Risperdal 3 mg p.o. at bedtime. 24. Trazodone 300 mg p.o. at bedtime. Once again, the patient will be discharged in stable condition with guarded prognosis.
== END 2016-11-26 15:58 | disposition home health service (06) | DRG 190 ==
LOC: EC 05:49 → 6SEL 07:05
PROVIDERS: ADMIT Family Medicine; ATTEND Family Medicine
DX: J44.0 Chronic obstructive pulmonary disease with (acute) lower respiratory infection (principal); E43 Unspecified severe protein-calorie malnutrition; J96.21 Acute and chronic respiratory failure with hypoxia; R64 Cachexia; F11.20 Opioid dependence, uncomplicated; E87.8 Other disorders of electrolyte and fluid balance, not elsewhere classified; M50.222 Other cervical disc displacement at C5-C6 level; J96.22 Acute and chronic respiratory failure with hypercapnia; Z68.1 Body mass index [BMI] 19.9 or less, adult; Z99.81 Dependence on supplemental oxygen; E83.42 Hypomagnesemia; J44.1 Chronic obstructive pulmonary disease with (acute) exacerbation; J20.9 Acute bronchitis, unspecified; K21.9 Gastro-esophageal reflux disease without esophagitis; G25.81 Restless legs syndrome; M81.0 Age-related osteoporosis without current pathological fracture; F12.90 Cannabis use, unspecified, uncomplicated; I25.2 Old myocardial infarction; T38.0X5A Adverse effect of glucocorticoids and synthetic analogues, initial encounter; F41.9 Anxiety disorder, unspecified; E78.5 Hyperlipidemia, unspecified; R73.9 Hyperglycemia, unspecified; K27.9 Peptic ulcer, site unspecified, unspecified as acute or chronic, without hemorrhage or perforation; F31.9 Bipolar disorder, unspecified; F17.210 Nicotine dependence, cigarettes, uncomplicated; R00.0 Tachycardia, unspecified; J45.909 Unspecified asthma, uncomplicated; R53.1 Weakness; D72.829 Elevated white blood cell count, unspecified; M47.812 Spondylosis without myelopathy or radiculopathy, cervical region; G56.03 Carpal tunnel syndrome, bilateral upper limbs; M50.30 Other cervical disc degeneration, unspecified cervical region; G43.909 Migraine, unspecified, not intractable, without status migrainosus; M47.816 Spondylosis without myelopathy or radiculopathy, lumbar region; M51.36 Other intervertebral disc degeneration, lumbar region; M19.90 Unspecified osteoarthritis, unspecified site; Z91.5 Personal history of self-harm; Z79.899 Other long term (current) drug therapy; Z79.52 Long term (current) use of systemic steroids; Z90.49 Acquired absence of other specified parts of digestive tract; Z86.14 Personal history of Methicillin resistant Staphylococcus aureus infection; Z87.01 Personal history of pneumonia (recurrent); Z85.41 Personal history of malignant neoplasm of cervix uteri; Z79.82 Long term (current) use of aspirin; Z86.010 Personal history of colon polyps; Z88.6 Allergy status to analgesic agent; Z88.1 Allergy status to other antibiotic agents; Z88.5 Allergy status to narcotic agent; Z88.2 Allergy status to sulfonamides; Z88.8 Allergy status to other drugs, medicaments and biological substances; Z91.018 Allergy to other foods; Z91.048 Other nonmedicinal substance allergy status; Z71.3 Dietary counseling and surveillance; Z71.6 Tobacco abuse counseling; Z98.51 Tubal ligation status; Z80.0 Family history of malignant neoplasm of digestive organs; Z81.1 Family history of alcohol abuse and dependence; Z91.14 Patient's other noncompliance with medication regimen; Z76.5 Malingerer [conscious simulation]
CPT/HCPCS: 36415; 71010; 80048; 80053; 83036; 83735; 83880; 84484; 85025; 85027; 85379; 85610; 85730; 93005; 94640; 94660; 94760; 99285

== ENCOUNTER → 2016-12-08 | Outpatient (CLI) | payer OTHER ==
[2016-12-08 12:55] LABS: ABG Base Excess 5.8 mmol/L; ABG HCO3 30 mmol/L (21-25); ABG Oxygen Saturation 96.3 % (94-97); ABG PCO2 41 mmHg (35-45); ABG PH 7.47 (7.35-7.45); ABG PO2 79 mmHg (83-108); ABG TCO2 31 mmol/L (19-24)
== END | disposition home or self-care (01) ==
LOC: LABWHC1 11:52
PROVIDERS: ATTEND Internal Medicine Critical Care Medicine
DX: J44.9 Chronic obstructive pulmonary disease, unspecified (principal)
CPT/HCPCS: 36600; 82805

== ENCOUNTER 2016-12-26 18:51 | Inpatient (IN) | payer OTHER ==
[2016-12-26] MEDS ORDERED: ALBUTEROL NEBULIZED 2.5 MG/3 ML INHALATION STA (18:59)
[2016-12-26] MEDS ORDERED: SODIUM CHLORIDE 0.9% 1,000 ML IV STA (18:59)
[2016-12-26] MEDS ORDERED: SODIUM CHLORIDE 0.9% 500 ML IV STA (18:59)
[2016-12-26] MEDS ORDERED: IPRATROPIUM 0.5 MG/2.5 ML NEBU INHALATION STA (18:59)
--- NOTE | 2016-12-26 19:15 | ED ---
General Adult HPI - General Chief complaint: Shortness of Breath Stated complaint: Diff breathing Time Seen by Provider: 12/26/16 18:59 Source: patient, RN notes reviewed, old records reviewed Mode of arrival: wheelchair Limitations: no limitations - History of Present Illness Initial comments: This is a 46 [place] noted. Patient's coming in for evaluation of shortness of breath, severe shortness of breath, history of severe COPD. Patient's significant for stress, states may or may not of had low-grade fever yesterday symptoms for 2 days. Does have increased cough and congestion no chest pain no recent travel history. No sick contacts. Patient has been doing her at home breathing treatments as prescribed - Related Data Home Medications Medication Instructions Recorded Confirmed Albuterol Inhaler [Ventolin Hfa 2 puff INHALATION RT-QID PRN 01/03/14 12/26/16 Inhaler] Omeprazole [PriLOSEC] 40 mg PO BID 01/03/14 12/26/16 Multivitamins, Thera [Multivitamin 1 tab PO DAILY 12/24/14 12/26/16 (formulary)] risperiDONE 3 mg PO HS 12/24/14 12/26/16 traZODone HCL 300 mg PO HS 12/24/14 12/26/16 buPROPion SR [Wellbutrin SR] 150 mg PO HS 04/30/15 12/26/16 Albuterol Nebulized [Ventolin 2.5 mg INHALATION RT-QID 03/24/16 12/26/16 Nebulized] Aspirin [Aspirin EC] 325 mg PO HS 03/24/16 12/26/16 Ipratropium [place] [Atrovent Hfa] 2 puff INHALATION RT-QID 07/07/16 12/26/16 HYDROcodone/APAP 10-325MG [[place] 1 tab PO TID PRN 07/08/16 12/26/16 10-325] rOPINIRole HCL 0.5 mg PO HS 07/18/16 12/26/16 Pregabalin [Lyrica] 100 mg PO BID 10/31/16 12/26/16 Magnesium Oxide [Mag-Ox] 400 mg PO HS 12/26/16 12/26/16 Previous Rx's Medication Instructions Recorded Budesonide-Formot 160-4.5 Mcg 2 puff INHALATION RT-BID puff 07/13/16 [Symbicort 160-4.5 Mcg Inhaler] Theophylline 24 Hour [Akhil-24] 300 mg PO BID 30 Days 07/21/16 ALPRAZolam [Xanax] 0.25 mg PO TID PRN #30 tab 09/13/16 predniSONE 20 mg PO DAILY #0 11/26/16 Allergies Allergy/AdvReac Type Severity Reaction Status Date / Time aripiprazole [From Abilify] Allergy Rash/Hives Verified 12/26/16 18:57 honey Allergy Rash/Hives Verified 12/26/16 18:57 methadone [Methadone] Allergy Itching Verified 12/26/16 18:57 naproxen Allergy Rash/Hives Verified 12/26/16 18:57 sulfamethoxazole Allergy Rash/Hives Verified 12/26/16 18:57 [From Bactrim] tetracycline [Tetracycline] Allergy Rash/Hives Verified 12/26/16 18:57 trimethoprim [From Bactrim] Allergy Rash/Hives Verified 12/26/16 18:57 adhesive tape AdvReac Rash/Hives Verified 12/26/16 18:57 codeine AdvReac Abdominal Verified 12/26/16 18:57 Pain ketorolac tromethamine AdvReac Vomiting Verified 12/26/16 18:57 [From Toradol] pregabalin [From Lyrica] AdvReac Unknown Verified 12/26/16 18:57 tramadol HCl [From Ultram] AdvReac SEIZURES Verified 12/26/16 18:57 tromethamine AdvReac Nausea & Verified 12/26/16 18:57 Vomiting Review of Systems ROS Statement: Those systems with pertinent positive or pertinent negative responses have been documented in the HPI. ROS Other: All systems not noted in ROS Statement are negative. Past Medical History Past Medical History: Asthma, Cancer, Chest Pain / Angina, COPD, GERD/Reflux, Hyperlipidemia, Osteoarthritis (OA) Additional Past Medical History / Comment(s): COPD which is been end-stage with frequent hospitalization for acute COPD exacerbation. The patient has chronic hypoxic and hypercapnic respiratory failure. 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, cervical and lumbar spine spondylosis, chronic migraines, peptic ulcer disease/gastric ulcers, carpal tunnel disease bilaterally, herniated disc at level of C5-C6 and C7, cervical cancer, depression, cachexia and malnourishment and significant loss and total body protein mass Last Myocardial Infarction Date:: UNK History of Any Multi-Drug Resistant Organisms: MRSA Date of last positivie culture/infection: 06/18/2015 MDRO Source:: SPUTUM Past Surgical History: Section, Cholecystectomy, Hysterectomy, Tubal Ligation Additional Past Surgical History / Comment(s): x 2, colonoscopy with benign polypectomy. Past Anesthesia/Blood Transfusion Reactions: No Reported Reaction Additional Past Anesthesia/Blood Transfusion Reaction / Comment(s): Pt has never recieved blood. Past Psychological History: Anxiety, Bipolar, Depression Additional Psychological History / Comment(s): Pt resides with her son jessica. She performs her own ADLs. She has home O2 at 5 L/[place] ATC. She does not drive but her son takes her places. she uses a walker as needed. Per her old medical record dated 07/06/14 pt was seen in [facility] ER for suicide attempt and admitted to psych. Relates that she is an ongoing tobacco smoker-smokes 3 CIG/ DAY. She does not have experience. She has no international travels. Smoking Status: Current every day smoker Past Alcohol Use History: None Reported Additional Past Alcohol Use History / Comment(s): ADMITS TO SMOKING 3 CIG PER DAY. Past Drug Use History: Marijuana Additional Drug Use History / Comment(s): OCC MARIJUANA USE - Past Family History Father Family Medical History: No Reported History Additional Family Medical History / Comment(s): WAS AN ALCOHOLIC Mother Family Medical History: Cancer Additional Family Medical History / Comment(s): AT AGE 54-BOWEL CANCER General Exam Limitations: no limitations General appearance: alert, in no apparent distress, anxious Head exam: Present: atraumatic, normocephalic, normal inspection Eye exam: Present: normal appearance, PERRL, EOMI. Absent: scleral icterus, conjunctival injection, periorbital swelling ENT exam: Present: normal exam, mucous membranes moist Neck exam: Present: normal inspection. Absent: tenderness, meningismus, lymphadenopathy Respiratory exam: Present: respiratory distress, wheezes, accessory muscle use, decreased breath sounds, prolonged expiratory. Absent: rhonchi, stridor Cardiovascular Exam: Present: normal rhythm, tachycardia, normal heart sounds. Absent: systolic murmur, diastolic murmur, rubs, gallop, clicks GI/Abdominal exam: Present: soft, normal bowel sounds. Absent: distended, tenderness, guarding, rebound, rigid Extremities exam: Present: normal inspection, full ROM, normal capillary refill. Absent: tenderness, pedal edema, joint swelling, calf tenderness Back exam: Present: normal inspection Neurological exam: Present: alert, oriented X3, CN II-XII intact Psychiatric exam: Present: normal affect, normal mood Skin exam: Present: warm, dry, intact, normal color. Absent: rash Course Vital Signs 12/26/16 12/26/16 12/26/16 18:54 19:36 19:54 Temperature 98.6 F Pulse Rate 120 H 117 H 117 H Respiratory 24 Rate Blood Pressure 110/60 O2 Sat by Pulse 87 L Oximetry EKG Findings - EKG Comments: EKG Findings:: EKG shows sinus tach rate 113, MT 132, QRS 72, QTC 425 Medical Decision Making - Medical Decision Making 46 female here with significant COPD exacerbation, hypoxia and respiratory failure, patient placed on BiPAP with continuous breathing treatment, mild improvement, patient will be admitted for continued breathing treatments steroids and IV fluid - Lab Data Result diagrams: 12/26/16 19:34 12/26/16 19:34 Lab Results 12/26/16 12/26/16 12/26/16 Range/Units 19:34 19:34 19:34 WBC 19.3 H (3.8-10.6) k/uL RBC 4.99 (3.80-5.40) m/uL Hgb 13.2 (11.4-16.0) gm/dL Hct 43.5 (34.0-46.0) % MCV 87.2 (80.0-100.0) fL MCH 26.5 (25.0-35.0) pg MCHC 30.4 L (31.0-37.0) g/dL RDW 16.4 H (11.5-15.5) % Plt Count 545 H (150-450) k/uL Neutrophils % 85 % Lymphocytes % 10 % Monocytes % 3 % Eosinophils % 0 % Basophils % 0 % Neutrophils # 16.5 H (1.3-7.7) k/uL Lymphocytes # 2.0 (1.0-4.8) k/uL Monocytes # 0.6 (0-1.0) k/uL Eosinophils # 0.0 (0-0.7) k/uL Basophils # 0.0 (0-0.2) k/uL Hypochromasia Moderate Anisocytosis Slight PT 10.2 (9.0-12.0) sec INR 1.0 (<1.1) APTT 23.5 (22.0-30.0) sec D-Dimer 0.20 (<0.60) mg/L FEU Sodium 139 (137-145) mmol/L Potassium 4.2 (3.5-5.1) mmol/L Chloride 97 L (98-107) mmol/L Carbon Dioxide 33 H (22-30) mmol/L Anion Gap 9 mmol/L BUN 16 (7-17) mg/dL Creatinine 0.40 L (0.52-1.04) mg/dL Est GFR (MDRD) Af Amer >60 (>60 ml/min/1.73 sqM) Est GFR (MDRD) Non-Af >60 (>60 ml/min/1.73 sqM) Glucose 112 H (74-99) mg/dL Calcium 9.7 (8.4-10.2) mg/dL Magnesium 1.9 (1.6-2.3) mg/dL Total Bilirubin 0.5 (0.2-1.3) mg/dL AST 13 L (14-36) U/L ALT 21 (9-52) U/L Alkaline Phosphatase 89 (38-126) U/L NT-Pro-B Natriuret Pep pg/mL Total Protein 6.6 (6.3-8.2) g/dL Albumin 3.7 (3.5-5.0) g/dL 12/26/16 Range/Units 19:34 WBC (3.8-10.6) k/uL RBC (3.80-5.40) m/uL Hgb (11.4-16.0) gm/dL Hct (34.0-46.0) % MCV (80.0-100.0) fL MCH (25.0-35.0) pg MCHC (31.0-37.0) g/dL RDW (11.5-15.5) % Plt Count (150-450) k/uL Neutrophils % % Lymphocytes % % Monocytes % % Eosinophils % % Basophils % % Neutrophils # (1.3-7.7) k/uL Lymphocytes # (1.0-4.8) k/uL Monocytes # (0-1.0) k/uL Eosinophils # (0-0.7) k/uL Basophils # (0-0.2) k/uL Hypochromasia Anisocytosis PT (9.0-12.0) sec INR (<1.1) APTT (22.0-30.0) sec D-Dimer (<0.60) mg/L FEU Sodium (137-145) mmol/L Potassium (3.5-5.1) mmol/L Chloride (98-107) mmol/L Carbon Dioxide (22-30) mmol/L Anion Gap mmol/L BUN (7-17) mg/dL Creatinine (0.52-1.04) mg/dL Est GFR (MDRD) Af Amer (>60 ml/min/1.73 sqM) Est GFR (MDRD) Non-Af (>60 ml/min/1.73 sqM) Glucose (74-99) mg/dL Calcium (8.4-10.2) mg/dL Magnesium (1.6-2.3) mg/dL Total Bilirubin (0.2-1.3) mg/dL AST (14-36) U/L ALT (9-52) U/L Alkaline Phosphatase (38-126) U/L NT-Pro-B Natriuret Pep 52 pg/mL Total Protein (6.3-8.2) g/dL Albumin (3.5-5.0) g/dL - Radiology Data Radiology results: report reviewed (Chest x-ray is negative for acute disease), image reviewed Critical Care Time Critical Care Time: Yes Total Critical Care Time: 31 Disposition Clinical Impression: COPD (chronic obstructive pulmonary disease) with emphysema, Adult respiratory distress syndrome, Acute respiratory failure Disposition: ADMITTED IP TO THIS HOSP Condition: Fair Referrals: Italo John MD [Primary Care Provider] - 1-2 days
[2016-12-26] MEDS ORDERED: ACETAMINOPHEN TAB 500 MG TAB PO STA (19:34)
[2016-12-26 19:46] LABS: Anisocytosis Slight; Basophils % (A) 0 %; CH 26.8; CHCM 30.8; Eosinophils % (A) 0 %; HCT 43.5 % (34.0-46.0); HDW 2.89; HGB 13.2 gm/dL (11.4-16.0); Hypochromasia Moderate; Luc # (Auto) 0.18; Luc % (Auto) 1; Lymphocytes % (A) 10 %; MCH 26.5 pg (25.0-35.0); MCHC 30.4 g/dL (31.0-37.0); MCV 87.2 fL (80.0-100.0); Mean Platelet Volume 6.2; Monocytes # (A) 0.6 k/uL (0-1.0); Monocytes % (A) 3 %; Neutrophils # (A) 16.5 k/uL (1.3-7.7); Neutrophils % (A) 85 %; RBC 4.99 m/uL (3.80-5.40); RDW 16.4 % (11.5-15.5); WBC 19.3 k/uL (3.8-10.6); WBC (Perox) 19.51
--- NOTE | 2016-12-26 20:02 | XR ---
EXAMINATION TYPE: XR chest 1V portable DATE OF EXAM: 12/26/2016 7:58 PM COMPARISON: Prior chest x-ray 19 November 2016 HISTORY: Shortness of breath, asthma and COPD TECHNIQUE: Single frontal view of the chest is obtained. FINDINGS: There is no focal air space opacity, pleural effusion, or pneumothorax seen. The cardiac silhouette size is within normal limits. There are overlying cardiac leads. Prominent lung volumes c ompatible with COPD. The osseous structures are intact. IMPRESSION: No acute process.
[2016-12-26 20:04] LABS: Partial Thromboplastin Time 23.5 sec (22.0-30.0); Prothrombin Time 10.2 sec (9.0-12.0)
[2016-12-26 20:09] LABS: ALT 21 U/L (9-52); AST 13 U/L (14-36); Alkaline Phosphatase 89 U/L (38-126); Anion Gap 9 mmol/L; Blood Urea Nitrogen 16 mg/dL (7-17); Calcium 9.7 mg/dL (8.4-10.2); Carbon Dioxide 33 mmol/L (22-30); Chloride 97 mmol/L (98-107); Creatine Kinase 23 U/L (30-135); Glucose 112 mg/dL (74-99); Magnesium 1.9 mg/dL (1.6-2.3); Non-African American GFR(MDRD) >60 (>60 ml/min/1.73 sqM); Potassium 4.2 mmol/L (3.5-5.1); Sodium 139 mmol/L (137-145); Total Bilirubin 0.5 mg/dL (0.2-1.3); Total Protein 6.6 g/dL (6.3-8.2)
[2016-12-26 20:21] LABS: Creatine Kinase MB 1.2 ng/mL (0.0-2.4); Troponin I <0.012 ng/mL (0.000-0.034)
[2016-12-26] MEDS ORDERED: methylPREDNISolone SOD SUCCI 125 MG/2 ML VIAL IV STA (20:24)
[2016-12-26 21:47] LABS: Glucose,Whole Blood 107 mg/dL (75-99)
[2016-12-26] MEDS ORDERED: ALBUTEROL INHALER 60 PUFF/8 GM INHALER INHALATION PRN (21:48)
[2016-12-26] MEDS: IPRATROPIUM-ALBUTEROL 3 ML NEB INHALATION PRN (22:07)
[2016-12-26] MEDS: HYDROcodone/APAP 10-325MG 1 EACH TAB PO PRN (22:26)
[2016-12-26] MEDS: MAGNESIUM OXIDE 400 MG TAB PO SCH (22:27)
[2016-12-26] MEDS: buPROPion SR 150 MG TABLET.ER PO SCH (22:27)
[2016-12-26] MEDS: PANTOPRAZOLE 40 MG TABLET PO SCH (22:27)
[2016-12-26] MEDS: risperiDONE 1 MG TAB PO SCH (22:27)
[2016-12-26] MEDS: ASPIRIN 325 MG TAB PO SCH (22:27)
[2016-12-26] MEDS: THEOPHYLLINE 24 HOUR 300 MG CAP.ER.24H PO SCH (22:28)
[2016-12-26] MEDS: traZODone HCL 100 MG TAB PO SCH (22:28)
[2016-12-27] MEDS: IPRATROPIUM-ALBUTEROL 3 ML NEB INHALATION PRN ×4 (02:11→16:14)
[2016-12-27] MEDS: methylPREDNISolone SOD SUCCI 125 MG/2 ML VIAL IV SCH ×4 (05:52→18:01)
[2016-12-27] MEDS: IPRATROPIUM-ALBUTEROL 3 ML NEB INHALATION SCH ×4 (07:19→21:09)
[2016-12-27 07:26] LABS: Glucose,Whole Blood 165 mg/dL (75-99)
[2016-12-27] MEDS: HYDROcodone/APAP 10-325MG 1 EACH TAB PO PRN ×2 (07:29→14:44)
[2016-12-27] MEDS: NICOTINE 21MG/24HR PATCH TRANSDERM SCH (07:59)
[2016-12-27] MEDS: PANTOPRAZOLE 40 MG TABLET PO SCH ×2 (07:59→18:01)
[2016-12-27] MEDS: THEOPHYLLINE 24 HOUR 300 MG CAP.ER.24H PO SCH ×2 (07:59→21:49)
[2016-12-27] MEDS: MULTIVITAMINS, THERA 1 EACH TAB PO SCH (07:59)
[2016-12-27] MEDS ORDERED: ALBUTEROL NEBULIZED 2.5 MG/3 ML INHALATION SCH (08:00)
[2016-12-27] MEDS ORDERED: SYMBICORT 160-4.5 MCG INHALER INHALATION SCH (08:00)
[2016-12-27] MEDS ORDERED: NON-FORMULARY DRUG (Ipratropium Bromide [Atrovent Hfa] 2 PUFF) INHALATION SCH (08:00)
[2016-12-27] MEDS: PREGABALIN 100 MG CAP PO SCH ×2 (08:02→21:51)
[2016-12-27] MEDS: ALPRAZolam 0.25 MG TAB PO PRN ×2 (08:06→14:44)
[2016-12-27] MEDS ORDERED: predniSONE 20 MG TAB PO SCH (09:00)
[2016-12-27 11:37] LABS: Glucose,Whole Blood 188 mg/dL (75-99)
[2016-12-27] MEDS ORDERED: VANCOMYCIN 1,000 MG in SODIUM CHLORIDE 0.9% 250 ML IVPB STA (11:50)
[2016-12-27] MEDS ORDERED: IV VANCOMYCIN PER PHARMACY 1 EACH MISC MISCELLANE PRN (11:50)
[2016-12-27] MEDS ORDERED: PIPERACILLIN-TAZOBACTAM 3.375 GM in DEXTROSE/WATER 1 50ML.BAG IVPB SCH (12:00)
--- NOTE | 2016-12-27 13:05 | P.HPIM ---
History of Present Illness H&P Date: 12/27/16 46-year-old female with end-stage COPD who is seen on our service multiple times comes back in to the hospital with progressive worsening of dyspnea. Patient states that she has had a worsening cough with greenish sputum production or the last few days. Patient was seen in the emergency room chest x -ray did not reveal any acute abnormalities. However patient was noted to have a cough. On physical exam patient was noted to have significant wheezing. She was started on BiPAP as patient was not tolerating ventilation on nasal cannula At the time of my evaluation patient is awake states that his breathing is improved slightly denies having any nausea vomiting.. Patient denies using any tobacco in the recent times as well has quit over 3 months ago Is currently on BiPAP IPAP of 14 cm water and EPAP of 5 cm water with FiO2 at 50 % Denies having any recent diarrhea nausea vomiting urinary urgency or frequency Review of Systems All systems: negative (Noted in HPI) Past Medical History Past Medical History: Asthma, Cancer, Chest Pain / Angina, COPD, GERD/Reflux, Hyperlipidemia, Osteoarthritis (OA) Additional Past Medical History / Comment(s): COPD which is been end-stage with frequent hospitalization for acute COPD exacerbation. The patient has chronic hypoxic and hypercapnic respiratory failure. 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, cervical and lumbar spine spondylosis, chronic migraines, peptic ulcer disease/gastric ulcers, carpal tunnel disease bilaterally, herniated disc at level of C5-C6 and C7, cervical cancer, depression, cachexia and malnourishment and significant loss and total body protein mass Last Myocardial Infarction Date:: UNK History of Any Multi-Drug Resistant Organisms: MRSA Date of last positivie culture/infection: 06/18/2015 MDRO Source:: SPUTUM Past Surgical History: Section, Cholecystectomy, Hysterectomy, Tubal Ligation Additional Past Surgical History / Comment(s): x 2, colonoscopy with benign polypectomy. Past Anesthesia/Blood Transfusion Reactions: No Reported Reaction Additional Past Anesthesia/Blood Transfusion Reaction / Comment(s): Pt has never recieved blood. Past Psychological History: Anxiety, Bipolar, Depression Additional Psychological History / Comment(s): Pt resides with her son jessica. She performs her own ADLs. She has home O2 at 5 L/[place] ATC. She does not drive but her son takes her places. she uses a walker as needed. Per her old medical record dated 07/06/14 pt was seen in [facility] ER for suicide attempt and admitted to psych. Relates that she is an ongoing tobacco smoker-smokes 3 CIG/ DAY. She does not have experience. She has no international travels. Smoking Status: Current every day smoker Past Alcohol Use History: None Reported Additional Past Alcohol Use History / Comment(s): ADMITS TO SMOKING 3 CIG PER DAY. Past Drug Use History: Marijuana Additional Drug Use History / Comment(s): OCC MARIJUANA USE - Past Family History Father Family Medical History: No Reported History Additional Family Medical History / Comment(s): WAS AN ALCOHOLIC Mother Family Medical History: Cancer Additional Family Medical History / Comment(s): AT AGE 54-BOWEL CANCER Medications and Allergies Home Medications Medication Instructions Recorded Confirmed Type Albuterol Inhaler [Ventolin Hfa 2 puff INHALATION RT-QID PRN 01/03/14 12/26/16 History Inhaler] Omeprazole [PriLOSEC] 40 mg PO BID 01/03/14 12/26/16 History Multivitamins, Thera [Multivitamin 1 tab PO DAILY 12/24/14 12/26/16 History (formulary)] risperiDONE 3 mg PO HS 12/24/14 12/26/16 History traZODone HCL 300 mg PO HS 12/24/14 12/26/16 History buPROPion SR [Wellbutrin SR] 150 mg PO HS 04/30/15 12/26/16 History Albuterol Nebulized [Ventolin 2.5 mg INHALATION RT-QID 03/24/16 12/26/16 History Nebulized] Aspirin [Aspirin EC] 325 mg PO HS 03/24/16 12/26/16 History Ipratropium [place] [Atrovent Hfa] 2 puff INHALATION RT-QID 07/07/16 12/26/16 History HYDROcodone/APAP 10-325MG [[place] 1 tab PO TID PRN 07/08/16 12/26/16 History 10-325] rOPINIRole HCL 0.5 mg PO HS 07/18/16 12/26/16 History Pregabalin [Lyrica] 100 mg PO BID 10/31/16 12/26/16 History Magnesium Oxide [Mag-Ox] 400 mg PO HS 12/26/16 12/26/16 History Allergies Allergy/AdvReac Type Severity Reaction Status Date / Time aripiprazole [From Abilify] Allergy Rash/Hives Verified 12/26/16 18:57 honey Allergy Rash/Hives Verified 12/26/16 18:57 methadone [Methadone] Allergy Itching Verified 12/26/16 18:57 naproxen Allergy Rash/Hives Verified 12/26/16 18:57 sulfamethoxazole Allergy Rash/Hives Verified 12/26/16 18:57 [From Bactrim] tetracycline [Tetracycline] Allergy Rash/Hives Verified 12/26/16 18:57 trimethoprim [From Bactrim] Allergy Rash/Hives Verified 12/26/16 18:57 adhesive tape AdvReac Rash/Hives Verified 12/26/16 18:57 codeine AdvReac Abdominal Verified 12/26/16 18:57 Pain ketorolac tromethamine AdvReac Vomiting Verified 12/26/16 18:57 [From Toradol] pregabalin [From Lyrica] AdvReac Unknown Verified 12/26/16 18:57 tramadol HCl [From Ultram] AdvReac SEIZURES Verified 12/26/16 18:57 tromethamine AdvReac Nausea & Verified 12/26/16 18:57 Vomiting Physical Exam Vitals: Vital Signs Temp Pulse Pulse Resp BP BP Pulse Ox 12/27/16 10:52 100 12/27/16 10:40 104 H 12/27/16 07:34 108 H 12/27/16 07:19 106 H 12/27/16 07:00 97.9 F 113 H 20 152/83 94 L 12/27/16 05:15 110 H 12/27/16 04:58 108 H 12/27/16 02:22 106 H 12/27/16 02:11 108 H 12/26/16 22:53 28 H 12/26/16 22:18 120 H 12/26/16 22:07 120 H 12/26/16 22:00 114 H 21 12/26/16 21:31 96.3 F L 114 H 21 126/80 97 12/26/16 20:59 117 H 24 112/62 97 12/26/16 20:39 122 H 12/26/16 20:26 120 H Intake and Output 12/26/16 12/27/16 12/27/16 22:59 06:59 14:59 Intake Total 999 Balance 999 Intake: Intake, IV Titration 999 Amount Sodium Chloride 0.9% 500 999 ml @ 999 mls/hr IV .Q31M STA Rx#:[id number] Other: # Voids 1 # Bowel Movements 1 Physical exam Gen. appearance oriented 3 appears to be in mild respiratory distress cachectic Neck is supple no JVD Lungs diffuse wheezing air movement is appreciated on BiPAP Heart S1-S2 heard regular rate and rhythm no murmurs appreciated Abdomen is soft nontender no organomegaly bowel sounds are intact Neurologically cranial nerves II-12 grossly intact no focal motor or sensory deficits noted Skin no abnormalities appreciated Results CBC & Chem 7: 12/26/16 19:34 12/26/16 19:34 Labs: Abnormal Lab Results - Last 24 Hours (Table) 12/26/16 12/27/16 12/27/16 Range/Units 21:35 07:24 11:36 POC Glucose (mg/dL) 107 H 165 H 188 H (75-99) mg/dL Thrombosis Risk Factor Assmnt - Choose All That Apply Any of the Below Risk Factors Present?: Yes Each Factor Represents 1 point: Abnormal pulmonary function (COPD), Age 41-60 years, Medical pt on bed rest, Serious lung disease incl. pneumonia (< 1month) Other Risk Factors: No Other congenital or acquired thrombophilia - If yes, enter type in comment: No Thrombosis Risk Factor Assessment Total Risk Factor Score: 4 Thrombosis Risk Factor Assessment Level: Moderate Risk Assessment and Plan Plan: #1 sepsis secondary to healthcare acquired tracheobronchitis #2 acute exacerbation of COPD with an acute on chronic hypoxic hypercapnic respiratory failure #3 severe protein calorie malnutrition secondary to above #4 disability #5 Darren arthritis #6 cervical and lumbar disc degenerative disease #7 opioid dependence #8 cervical cancer #9 chronic migraines Plan We'll have pulmonary team evaluated the patient Continue steroid therapy will improve will start the patient on vancomycin and Zosyn. Sputum cultures should be sent for cultures Start Pulmicort inhalation DuoNeb to continue formoterol will also be started Continue BiPAP therapy at this time Repeat chest xray in the am.
[2016-12-27] MEDS: INSULIN LISPRO (humaLOG) 300 UNIT/3 ML VIAL SQ SCH ×3 (13:11→21:49)
[2016-12-27] MEDS: PIPERACILLIN-TAZOBACTAM 3.375 GM in DEXTROSE/WATER 1 50ML.BAG IVPB SCH ×2 (14:32→21:46)
[2016-12-27 16:53] LABS: Glucose,Whole Blood 135 mg/dL (75-99)
[2016-12-27] MEDS: VANCOMYCIN 1,000 MG in SODIUM CHLORIDE 0.9% 250 ML IVPB SCH (18:01)
[2016-12-27 20:53] LABS: Glucose,Whole Blood 171 mg/dL (75-99)
[2016-12-27] MEDS: FORMOTEROL FUMARATE 20 MCG/2 ML NEBU INHALATION SCH (21:09)
[2016-12-27] MEDS: BUDESONIDE 1 MG/2 ML NEBU INHALATION SCH (21:09)
[2016-12-27] MEDS: ASPIRIN 325 MG TAB PO SCH (21:47)
[2016-12-27] MEDS: traZODone HCL 100 MG TAB PO SCH (21:48)
[2016-12-27] MEDS: MAGNESIUM OXIDE 400 MG TAB PO SCH (21:48)
[2016-12-27] MEDS: buPROPion SR 150 MG TABLET.ER PO SCH (21:48)
[2016-12-27] MEDS: risperiDONE 1 MG TAB PO SCH (21:48)
[2016-12-28] MEDS: IPRATROPIUM-ALBUTEROL 3 ML NEB INHALATION PRN ×3 (00:14→23:46)
[2016-12-28] MEDS: methylPREDNISolone SOD SUCCI 125 MG/2 ML VIAL IV SCH ×5 (00:57→23:12)
[2016-12-28] MEDS: VANCOMYCIN 1,000 MG in SODIUM CHLORIDE 0.9% 250 ML IVPB SCH ×5 (02:26→23:12)
[2016-12-28] MEDS ORDERED: VANCOMYCIN TROUGH DUE 1 EACH MISC MISCELLANE ONE (05:00)
[2016-12-28] MEDS: PIPERACILLIN-TAZOBACTAM 3.375 GM in DEXTROSE/WATER 1 50ML.BAG IVPB SCH ×3 (05:26→20:04)
--- NOTE | 2016-12-28 05:32 | CONS ---
DATE OF CONSULTATION: This is a 46-year-old woman well known to our service. She has history of severe stage IV COPD. She has had multiple exacerbations and multiple admissions to the hospital. Quite frankly she does not really take very good care of herself. I doubt whether or not she takes her maintenance medications on a regular basis and I think she continues to smoke cigarettes. Nonetheless, she came into the emergency room on December 26 with complaints of increasing shortness of breath, chest congestion, coughing. No fever, no chills. Had been having difficulty breathing for 2 or 3 days prior to admission. The patient apparently did not have any chest pain. No nausea, vomiting, or diarrhea. Not really producing much or any phlegm. Anyway, she was seen in the emergency room by one of the ER doctors and admitted to the hospital under Dr. John's service with a diagnosis of COPD exacerbation. I saw her just recently on November 19 for a similar episode and if you go back through her history she has multiple admissions for same. The patient continues to smoke and the last time I saw her she admitted she was still smoking even though some areas of the chart had mentioned that she had stopped smoking. Anyway, she was admitted to the hospital. Comes in with similar symptoms all the time and typically has a normal chest x-ray. Feeling a bit better when I saw her today. Not much better. Her home medications include a rescue inhaler in the form of albuterol, Prilosec, multiple vitamins, risperidone, trazodone, Wellbutrin, aspirin, Atrovent HFA inhaler, [place], ropinirole, pregabalin, magnesium oxide. She should also be on Symbicort, I am sure if she is on it. She should be on 160/4.5 two puffs twice a day and Akhil-24 one tablet twice a day 300 mg as well as Xanax 3 times a day and prednisone 20 mg a day which I believe is her daily dose, although that sounds a bit high to me. I thought she was on 5 or 10 mg a day. Allergies are multiple, please look at the MAR in the chart for those multiple allergies. Medical history includes COPD, gastroesophageal reflux disease, hyperlipidemia, anxiety, chronic pain syndrome, osteoarthritis. She has chronic hypoxemia and uses oxygen 24/7 at somewhere between 3 to 5 L per minute. The patient also has a history of cervical and lumbar spondylosis as well as chronic migraine cephalgia and carpal tunnel bilaterally and has had herniated disc at C5, C6, C7. 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 Her surgical history includes among other things a , cholecystectomy, hysterectomy, tubal ligation, colonoscopy with polypectomy. Social history is positive for ongoing tobacco use. She apparently had some history of drug abuse in the past; marijuana and possibly other drugs as well, may be some narcotics. She denies alcohol. Family history is positive for cancer and alcoholism. REVIEW OF SYSTEMS: CONSTITUTIONAL: Negative. NEUROLOGICAL: Negative. HEENT: Negative. CARDIOVASCULAR: Negative. PULMONARY: Shortness of breath, chest tightness, wheezing, cough, chest congestion, minimal phlegm production. GI/: Negative. RHEUMATOLOGICAL/IMMUNOLOGIC: Negative. ENDOCRINOLOGIC: Negative. DERMATOLOGIC: Negative. Current vital signs include temperature which is normal, a heart rate which is 100, respiratory rate which is mid 20s, blood pressure 110/60, saturations on 4 L which are 93%. Appears mildly tachypneic and dyspneic. Looks about the same as she normally looks. Again, very wasted and cachectic appearing. HEENT examination is grossly unremarkable. Mucous membranes are moist. No oral lesions. NECK: Supple. Full range of motion. No adenopathy or thyromegaly. Neck veins are flat. Cardiovascular examination reveals regular rhythm and rate. S1, S2 normal. Mildly tachycardic. Lungs reveal severely diminished breath sounds. A few scattered rhonchi. Some mild high-pitched wheezes. Slight prolongation. ABDOMEN: Soft. Bowel sounds are heard. Extremities are intact. No to minimal edema. Pulses are intact. Skin without rash. Neurological examination is nonfocal. Chest x-ray shows changes of COPD without any acute abnormalities. Lab data is reviewed and white count 19.3, hemoglobin 13.2, hematocrit 43.5, platelet count of 545,000. PT, INR, PTT, D-dimer all normal. Sodium and potassium normal. Chloride is 97, CO2 of 33 based on that, bicarbonate concentration of 33, her baseline PaCO2 would be roughly 57 plus or minus 2 mmHg. Anion gap is normal at 9, BUN and creatinine were 16 and 0.4. Her AST was 13. CK 23. N-terminal proBNP 52. Medications are reviewed. She is currently on Xanax, Tylenol, albuterol updrafts, aspirin, Pulmicort, formoterol, DuoNeb q.i.d. and p.r.n., Mag-Ox, multiple vitamins, nicotine patch, Protonix, Zosyn, Lyrica, theophylline, vancomycin, Solu-Medrol, trazodone, Risperdal and Requip. ASSESSMENT: 1. Chronic obstructive pulmonary disease exacerbation, possibly complicated by mild purulent tracheobronchitis. No evidence of pneumonia. 2. Multiple chronic obstructive pulmonary exacerbations in the past. 3. Multiple other medical problems and comorbidities as listed above. 4. Ongoing tobacco use and nicotine addiction. 5. Anorexia cachexia syndrome of chronic illness. 6. Multiple admissions to the hospital, many of which in my opinion could be prevented if she would not smoke and take her medications as prescribed. PLAN: I will review the medications. No additional recommendations are made. I do not believe she needs all the antibiotics that she is currently getting. I will review them and make additional changes. Prognosis is guarded. Will continue to follow.
[2016-12-28] MEDS: HYDROcodone/APAP 10-325MG 1 EACH TAB PO PRN ×3 (06:05→22:02)
[2016-12-28] MEDS: ALPRAZolam 0.25 MG TAB PO PRN ×3 (06:07→22:03)
[2016-12-28 07:29] LABS: Glucose,Whole Blood 153 mg/dL (75-99)
[2016-12-28] MEDS: INSULIN LISPRO (humaLOG) 300 UNIT/3 ML VIAL SQ SCH ×4 (07:47→21:57)
[2016-12-28] MEDS: PANTOPRAZOLE 40 MG TABLET PO SCH ×2 (07:47→17:51)
[2016-12-28] MEDS: MULTIVITAMINS, THERA 1 EACH TAB PO SCH (07:47)
[2016-12-28] MEDS: THEOPHYLLINE 24 HOUR 300 MG CAP.ER.24H PO SCH ×2 (07:48→20:07)
[2016-12-28] MEDS: NICOTINE 21MG/24HR PATCH TRANSDERM SCH (07:48)
[2016-12-28] MEDS: PREGABALIN 100 MG CAP PO SCH ×2 (07:50→20:10)
[2016-12-28] MEDS: BUDESONIDE 1 MG/2 ML NEBU INHALATION SCH ×2 (07:56→19:36)
[2016-12-28] MEDS: FORMOTEROL FUMARATE 20 MCG/2 ML NEBU INHALATION SCH ×2 (07:56→19:36)
[2016-12-28] MEDS: IPRATROPIUM-ALBUTEROL 3 ML NEB INHALATION SCH ×4 (07:56→19:36)
[2016-12-28 10:05] LABS: ALT 22 U/L (9-52); AST 15 U/L (14-36); Alkaline Phosphatase 73 U/L (38-126); Blood Urea Nitrogen 15 mg/dL (7-17); Calcium 9.5 mg/dL (8.4-10.2); Chloride 95 mmol/L (98-107); Glucose 167 mg/dL (74-99); Non-African American GFR(MDRD) >60 (>60 ml/min/1.73 sqM); Potassium 4.5 mmol/L (3.5-5.1); Sodium 139 mmol/L (137-145); Total Bilirubin 0.4 mg/dL (0.2-1.3); Total Protein 6.1 g/dL (6.3-8.2)
[2016-12-28 10:11] LABS: Anion Gap 3 mmol/L
--- NOTE | 2016-12-28 10:15 | PN ---
This is a 46-year-old female with a history of stage IV, very severe COPD, well known to our service. Was admitted through the emergency room on December 26 with COPD exacerbation. Seen yesterday by me. Doing about the same. Remains on BiPAP. The patient still complains of shortness of breath, chest tightness, wheezing, cough. Unfortunately, she continues to smoke. She has had multiple admissions to this hospital recently. Current vital signs are reviewed. Temperature 97.7, heart rate about 100, respiratory rate 18, blood pressure 149/69, mean 95, saturations are 97% on the BiPAP and FiO2 of 50%. Appears in no acute distress. Chronically tachypneic and dyspneic. HEENT examination is grossly unremarkable. BiPAP mask in place. NECK: Supple. Full range of motion. No adenopathy or thyromegaly, neck veins are flat. Cardiovascular examination reveals distant heart sounds. She is mildly tachycardic. It is regular. S1, S2 normal. No murmur. Lungs reveal some severely diminished breath sounds throughout. No wheezes or rhonchi. Slight prolongation. Coarse rhonchi noted at the right lung base. No crackles. Abdomen is soft. Bowel sounds are heard. No masses or tenderness. Extremities are intact. There is no cyanosis, clubbing or edema. Skin without rash. Neurologic examination is nonfocal. Lab data is reviewed. Nothing new to report. There was nothing to outstanding or remarkable about her initial laboratory data. Chest x-ray as mentioned shows just changes of COPD. Medications are reviewed. From the pulmonary standpoint, she is on Pulmicort 1 mg mixed with Perforomist twice a day. She remains on DuoNeb q.i.d. and p.r.n. She is also on Solu-Medrol 60 mg q.6. Her antibiotics are vancomycin and Zosyn. I think the vancomycin can be discontinued. Her microbiology thus far is all negative. Her chest x-ray was unremarkable. I think the Zosyn as monotherapy would probably be more than appropriate for this lady. ASSESSMENT: 1. Chronic obstructive pulmonary disease exacerbation complicated by purulent tracheobronchitis, without balta pneumonia. 2. Multiple chronic obstructive pulmonary disease exacerbation. 3. Ongoing tobacco use and nicotine addiction. 4. Anorexia cachexia syndrome of chronic illness. 5. Multiple admissions for COPD exacerbations caused by noncompliance with medications and ongoing tobacco use. PLAN: Will continue to follow. Prognosis is guarded. Could discontinue the vancomycin in my opinion. Will follow along. No additional recommendations are made. Again prognosis is guarded.
[2016-12-28 10:19] LABS: Carbon Dioxide 41 mmol/L (22-30)
[2016-12-28 10:20] LABS: Basophils % (A) 0 %; CH 26.5; Eosinophils % (A) 0 %; HCT 37.6 % (34.0-46.0); HDW 3.07; HGB 11.4 gm/dL (11.4-16.0); Hypochromasia Marked; Luc # (Auto) 0.07; Luc % (Auto) 1; Lymphocytes # (A) 0.5 k/uL (1.0-4.8); Lymphocytes % (A) 4 %; MCH 26.9 pg (25.0-35.0); MCHC 30.3 g/dL (31.0-37.0); MCV 88.6 fL (80.0-100.0); Mean Platelet Volume 6.2; Monocytes # (A) 0.4 k/uL (0-1.0); Monocytes % (A) 3 %; Neutrophils % (A) 92 %; RBC 4.24 m/uL (3.80-5.40); RDW 15.8 % (11.5-15.5); WBC 11.9 k/uL (3.8-10.6); WBC (Perox) 11.97
--- NOTE | 2016-12-28 11:16 | XR ---
EXAMINATION TYPE: XR chest 1V portable DATE OF EXAM: 12/28/2016 11:09 AM COMPARISON: 12/26/2016 HISTORY: Chest pain TECHNIQUE: Single frontal view of the chest is obtained. FINDINGS: There is no focal air space opacity, pleural effusion, or pneumothorax seen. There is hyperinflation compatible with COPD. The cardiac silhouette size is within normal limits. The osseous structures are intact. IMPRESSION: 1. No acute process.
[2016-12-28 11:43] LABS: Glucose,Whole Blood 182 mg/dL (75-99)
--- NOTE | 2016-12-28 15:52 | P.PN ---
Subjective Patient resting in bed on BiPAP. Noted type wheeze and use of construction consultant he muscles. Bicarb elevated uncompensated respiratory acidosis Objective - Vital Signs Vital signs: Vital Signs Temp 98.2 F 12/28/16 15:00 Pulse 104 H 12/28/16 15:00 Resp 16 12/28/16 15:00 BP 126/58 12/28/16 15:00 Pulse Ox 96 12/28/16 15:00 Intake & Output 12/27/16 12/28/16 12/28/16 18:59 06:59 18:59 Weight 45.813 kg Other: Voiding Method Bedside Commode # Voids 3 3 3 # Bowel Movements 1 0 - Constitutional General appearance: Present: mild distress, thin - EENT Eyes: Present: PERRLA Ears: bilateral: normal - Neck Neck: Present: normal ROM - Respiratory Respiratory: bilateral: diminished, wheezing - Cardiovascular Rhythm: regular - Gastrointestinal General gastrointestinal: Present: soft - Integumentary Integumentary: Present: normal - Neurologic Neurologic: Present: CNII-XII intact - Musculoskeletal Musculoskeletal: Present: generalized weakness - Psychiatric Psychiatric: Present: A&O x's 3, appropriate affect, intact judgment & insight - Labs CBC & Chem 7: 12/28/16 09:07 12/28/16 09:07 Labs: Abnormal Lab Results - Last 24 Hours (Table) 12/27/16 12/27/16 12/28/16 Range/Units 16:51 20:50 07:26 WBC (3.8-10.6) k/uL MCHC (31.0-37.0) g/dL RDW (11.5-15.5) % Plt Count (150-450) k/uL Neutrophils # (1.3-7.7) k/uL Lymphocytes # (1.0-4.8) k/uL Chloride (98-107) mmol/L Carbon Dioxide (22-30) mmol/L Creatinine (0.52-1.04) mg/dL Glucose (74-99) mg/dL POC Glucose (mg/dL) 135 H 171 H 153 H (75-99) mg/dL Total Protein (6.3-8.2) g/dL Albumin (3.5-5.0) g/dL 05/09/17 05/09/17 05/09/17 Range/Units 09:07 09:07 11:40 WBC 11.9 H (3.8-10.6) k/uL MCHC 30.3 L (31.0-37.0) g/dL RDW 15.8 H (11.5-15.5) % Plt Count 452 H (150-450) k/uL Neutrophils # 11.0 H (1.3-7.7) k/uL Lymphocytes # 0.5 L (1.0-4.8) k/uL Chloride 95 L (98-107) mmol/L Carbon Dioxide 41 H* (22-30) mmol/L Creatinine 0.38 L (0.52-1.04) mg/dL Glucose 167 H (74-99) mg/dL POC Glucose (mg/dL) 182 H (75-99) mg/dL Total Protein 6.1 L (6.3-8.2) g/dL Albumin 3.3 L (3.5-5.0) g/dL - Imaging and Cardiology Chest x-ray: report reviewed Assessment and Plan Plan: Assessment sepsis secondary to tracheal bronchitis acute and chronic COPD end-stage hypoxic hypercapnia respiratory failure on Homo to severe protein calorie malnutrition medical debility osteoarthritis cervical and lumbar degenerative disc disease opiate dependence Plan continue consultation with pulmonology steroids bronchodilators vancomycin Zosyn continued BiPAP
[2016-12-28 16:39] LABS: Glucose,Whole Blood 201 mg/dL (75-99)
[2016-12-28] MEDS: ASPIRIN 325 MG TAB PO SCH (20:06)
[2016-12-28] MEDS: buPROPion SR 150 MG TABLET.ER PO SCH (20:06)
[2016-12-28] MEDS: MAGNESIUM OXIDE 400 MG TAB PO SCH (20:06)
[2016-12-28] MEDS: risperiDONE 1 MG TAB PO SCH (20:07)
[2016-12-28] MEDS: traZODone HCL 100 MG TAB PO SCH (20:07)
[2016-12-28 20:42] LABS: Glucose,Whole Blood 217 mg/dL (75-99)
[2016-12-29] MEDS: VANCOMYCIN 1,000 MG in SODIUM CHLORIDE 0.9% 250 ML IVPB SCH ×2 (00:14→07:42)
[2016-12-29] MEDS: IPRATROPIUM-ALBUTEROL 3 ML NEB INHALATION PRN ×3 (03:48→23:44)
[2016-12-29] MEDS: PIPERACILLIN-TAZOBACTAM 3.375 GM in DEXTROSE/WATER 1 50ML.BAG IVPB SCH ×3 (03:48→20:11)
[2016-12-29] MEDS ORDERED: VANCOMYCIN TROUGH DUE 1 EACH MISC MISCELLANE ONE (05:00)
[2016-12-29 05:19] LABS: Blood Urea Nitrogen 25 mg/dL (7-17); Chloride 97 mmol/L (98-107); Glucose 186 mg/dL (74-99); Non-African American GFR(MDRD) >60 (>60 ml/min/1.73 sqM); Potassium 4.3 mmol/L (3.5-5.1); Sodium 141 mmol/L (137-145)
[2016-12-29 05:27] LABS: Anion Gap 3 mmol/L
[2016-12-29 05:32] LABS: Carbon Dioxide 41 mmol/L (22-30)
[2016-12-29] MEDS: methylPREDNISolone SOD SUCCI 125 MG/2 ML VIAL IV SCH ×4 (06:00→23:36)
[2016-12-29] MEDS: ALPRAZolam 0.25 MG TAB PO PRN ×2 (06:01→14:13)
[2016-12-29] MEDS: HYDROcodone/APAP 10-325MG 1 EACH TAB PO PRN ×2 (06:01→14:13)
[2016-12-29 06:42] LABS: Glucose,Whole Blood 160 mg/dL (75-99)
[2016-12-29] MEDS: IPRATROPIUM-ALBUTEROL 3 ML NEB INHALATION SCH ×4 (07:27→20:06)
[2016-12-29] MEDS: FORMOTEROL FUMARATE 20 MCG/2 ML NEBU INHALATION SCH ×2 (07:27→20:04)
[2016-12-29] MEDS: BUDESONIDE 1 MG/2 ML NEBU INHALATION SCH ×2 (07:27→20:04)
[2016-12-29] MEDS: INSULIN LISPRO (humaLOG) 300 UNIT/3 ML VIAL SQ SCH ×4 (07:42→20:59)
[2016-12-29] MEDS: THEOPHYLLINE 24 HOUR 300 MG CAP.ER.24H PO SCH ×2 (07:43→20:12)
[2016-12-29] MEDS: PREGABALIN 100 MG CAP PO SCH ×2 (07:43→20:12)
[2016-12-29] MEDS: NICOTINE 21MG/24HR PATCH TRANSDERM SCH (07:43)
[2016-12-29] MEDS: MULTIVITAMINS, THERA 1 EACH TAB PO SCH (07:43)
[2016-12-29] MEDS: PANTOPRAZOLE 40 MG TABLET PO SCH ×2 (07:43→17:28)
[2016-12-29 11:41] LABS: Glucose,Whole Blood 162 mg/dL (75-99)
--- NOTE | 2016-12-29 13:44 | P.PN ---
Subjective Principal diagnosis: Acute exacerbation of COPD This is a very pleasant 46-year-old female patient who follows with Dr. John as her primary care physician. She also follows with Dr. Molina in our office for severe end-stage oxygen, steroid-dependent chronic obstructive pulmonary disease chronic and ongoing tobacco dependence. Her FEV1 value is 27 % of predicted. Gold stage IV. She has had multiple admissions for exacerbations of her COPD. He presented here again on 12/26/2016 with complaints of increasing shortness of breath. 6 or did not reveal any acute pulmonary process. She is seen again today in follow-up on the regular medical floor. She is awake and alert in no acute distress. She is currently utilizing the BiPAP and is quite comfortable. She states she is slightly better today as compared to yesterday. Still not back to her baseline. Objective - Vital Signs Vital signs: Vital Signs Temp 97.0 F L 12/29/16 07:00 Pulse 84 12/29/16 11:29 Resp 20 12/29/16 07:00 BP 109/71 12/29/16 07:00 Pulse Ox 94 L 12/29/16 11:14 Intake & Output 12/28/16 12/29/16 12/29/16 18:59 06:59 18:59 Intake Total 250 500 Balance 250 500 Intake: Intake, IV Titration 50 Amount Piperacillin-Tazobactam 3 50 .375 gm In Dextrose/Water 1 50ml.bag @ 12.5 mls/hr IVPB Q8H [place] Rx#: [id number] Oral 200 500 Other: # Voids 3 1 1 - Exam GENERAL EXAM: Frail, cachectic. Alert, active, comfortable in no apparent distress. HEAD: Normocephalic. EYES: Normal reaction of pupils, equal size. NOSE: Clear with pink turbinates. THROAT: No erythema or exudates. NECK: No masses, no JVD. CHEST: No chest wall deformity. LUNGS: Equal air entry with wheeze. Diminished throughout.r CVS: S1 and S2 normal with no audible mumurs, regular rhythm. ABDOMEN: No hepatosplenomegaly, normal bowel sounds, no guarding or rigidity. SPINE: No scoliosis or deformity SKIN: No rashes CENTRAL NERVOUS SYSTEM: No focal deficits, tone is normal in all 4 extremities. Extremities: No peripheral edema. No clubbing, no cyanosis. Peripheral pulses are intact. - Labs CBC & Chem 7: 12/28/16 09:07 12/29/16 04:56 Labs: Abnormal Lab Results - Last 24 Hours (Table) 12/28/16 12/28/16 12/29/16 Range/Units 16:37 20:36 04:56 Chloride 97 L (98-107) mmol/L Carbon Dioxide 41 H* (22-30) mmol/L BUN 25 H (7-17) mg/dL Creatinine 0.40 L (0.52-1.04) mg/dL Glucose 186 H (74-99) mg/dL POC Glucose (mg/dL) 201 H 217 H (75-99) mg/dL 12/29/16 12/29/16 Range/Units 06:40 11:40 Chloride (98-107) mmol/L Carbon Dioxide (22-30) mmol/L BUN (7-17) mg/dL Creatinine (0.52-1.04) mg/dL Glucose (74-99) mg/dL POC Glucose (mg/dL) 160 H 162 H (75-99) mg/dL Assessment and Plan Plan: Impression: #1 Acute exacerbation of severe, oxygen dependent, steroid dependent Gold stage IV chronic obstructive pulmonary disease. FEV1 value 27% of predicted. #2 Acute on chronic hypoxic respiratory failure secondary to above. #3 Acute on chronic hypercapnic respiratory failure secondary to above. #4 Chronic and ongoing tobacco dependence. #5 Previous history of methicillin-resistant Staphylococcus aureus and pulmonary infections. #6 Anorexia/cachexia syndrome secondary to catabolic state. #7 Poor overall functional performance based on the above-mentioned multiple comorbidities. Plan: The patient was seen and evaluated by Dr. Lino. She is still not quite back to her baseline. We'll continue with her current pulmonary medications. We'll increase her activity as tolerated. She'll take breaks from the BiPAP as tolerated as well. We'll continue to follow.
[2016-12-29 14:02] VITALS: BMI 17.9
--- NOTE | 2016-12-29 15:51 | P.PN ---
Subjective Noted improvement this morning. Patient attempting to do intermittent BiPAP. Patient able to talk with less distress Objective - Vital Signs Vital signs: Vital Signs Temp 97.3 F L 12/29/16 15:00 Pulse 100 12/29/16 15:00 Resp 20 12/29/16 15:00 BP 126/65 12/29/16 15:00 Pulse Ox 95 12/29/16 15:00 Intake & Output 12/28/16 12/29/16 12/29/16 18:59 06:59 18:59 Intake Total 250 500 Balance 250 500 Weight 45.813 kg Intake: Intake, IV Titration 50 Amount Piperacillin-Tazobactam 3 50 .375 gm In Dextrose/Water 1 50ml.bag @ 12.5 mls/hr IVPB Q8H [place] Rx#: [id number] Oral 200 500 Other: # Voids 3 1 3 - Constitutional General appearance: Present: thin - EENT Eyes: Present: PERRLA Ears: bilateral: normal - Neck Neck: Present: normal ROM - Respiratory Respiratory: bilateral: diminished, wheezing - Cardiovascular Rhythm: regular - Gastrointestinal General gastrointestinal: Present: soft - Integumentary Integumentary: Present: normal - Neurologic Neurologic: Present: CNII-XII intact - Musculoskeletal Musculoskeletal: Present: generalized weakness - Psychiatric Psychiatric: Present: A&O x's 3, appropriate affect, intact judgment & insight - Labs CBC & Chem 7: 12/28/16 09:07 12/29/16 04:56 Labs: Abnormal Lab Results - Last 24 Hours (Table) 12/28/16 12/28/16 12/29/16 Range/Units 16:37 20:36 04:56 Chloride 97 L (98-107) mmol/L Carbon Dioxide 41 H* (22-30) mmol/L BUN 25 H (7-17) mg/dL Creatinine 0.40 L (0.52-1.04) mg/dL Glucose 186 H (74-99) mg/dL POC Glucose (mg/dL) 201 H 217 H (75-99) mg/dL 12/29/16 12/29/16 Range/Units 06:40 11:40 Chloride (98-107) mmol/L Carbon Dioxide (22-30) mmol/L BUN (7-17) mg/dL Creatinine (0.52-1.04) mg/dL Glucose (74-99) mg/dL POC Glucose (mg/dL) 160 H 162 H (75-99) mg/dL Assessment and Plan Plan: Assessment sepsis secondary to tracheal bronchitis exacerbation of COPD acute and chronic hypoxic hypercapnia respiratory failure Gold stage IV steroid depended Home O2 dependent severe protein calorie malnutrition secondary to above medical debility osteoarthritis opioid dependence with cervical lumbar disc degeneration Plan continue consultation with pulmonology on Zosyn steroids bronchodilators uses BiPAP intermittently
[2016-12-29 17:18] LABS: Glucose,Whole Blood 204 mg/dL (75-99)
[2016-12-29] MEDS: HYDROmorphone 1 MG/ML 1 ML SYRINGE IVP PRN ×2 (17:27→23:36)
[2016-12-29] MEDS: risperiDONE 1 MG TAB PO SCH (20:11)
[2016-12-29] MEDS: traZODone HCL 100 MG TAB PO SCH (20:11)
[2016-12-29] MEDS: buPROPion SR 150 MG TABLET.ER PO SCH (20:12)
[2016-12-29] MEDS: MAGNESIUM OXIDE 400 MG TAB PO SCH (20:12)
[2016-12-29] MEDS: ASPIRIN 325 MG TAB PO SCH (20:12)
[2016-12-29 20:53] LABS: Glucose,Whole Blood 174 mg/dL (75-99)
[2016-12-30] MEDS: PIPERACILLIN-TAZOBACTAM 3.375 GM in DEXTROSE/WATER 1 50ML.BAG IVPB SCH ×3 (03:29→21:54)
[2016-12-30] MEDS: IPRATROPIUM-ALBUTEROL 3 ML NEB INHALATION PRN (03:43)
[2016-12-30] MEDS: HYDROmorphone 1 MG/ML 1 ML SYRINGE IVP PRN ×4 (05:13→23:07)
[2016-12-30] MEDS: methylPREDNISolone SOD SUCCI 125 MG/2 ML VIAL IV SCH ×4 (05:13→23:07)
[2016-12-30 07:29] LABS: Glucose,Whole Blood 143 mg/dL (75-99)
[2016-12-30] MEDS: FORMOTEROL FUMARATE 20 MCG/2 ML NEBU INHALATION SCH ×2 (07:43→19:59)
[2016-12-30] MEDS: BUDESONIDE 1 MG/2 ML NEBU INHALATION SCH ×2 (07:43→19:58)
[2016-12-30] MEDS: IPRATROPIUM-ALBUTEROL 3 ML NEB INHALATION SCH ×4 (07:43→19:59)
[2016-12-30] MEDS: PANTOPRAZOLE 40 MG TABLET PO SCH ×2 (08:10→18:09)
[2016-12-30] MEDS: INSULIN LISPRO (humaLOG) 300 UNIT/3 ML VIAL SQ SCH ×4 (08:10→21:55)
[2016-12-30] MEDS: NICOTINE 21MG/24HR PATCH TRANSDERM SCH ×2 (08:10→08:15)
[2016-12-30] MEDS: THEOPHYLLINE 24 HOUR 300 MG CAP.ER.24H PO SCH ×2 (08:10→21:55)
[2016-12-30] MEDS: MULTIVITAMINS, THERA 1 EACH TAB PO SCH (08:10)
[2016-12-30] MEDS: PREGABALIN 100 MG CAP PO SCH ×2 (08:14→21:55)
[2016-12-30] MEDS: ALPRAZolam 0.25 MG TAB PO PRN (08:32)
[2016-12-30 09:53] LABS: Blood Urea Nitrogen 20 mg/dL (7-17); Calcium 9.6 mg/dL (8.4-10.2); Chloride 92 mmol/L (98-107); Glucose 231 mg/dL (74-99); Non-African American GFR(MDRD) >60 (>60 ml/min/1.73 sqM); Potassium 4.2 mmol/L (3.5-5.1); Sodium 140 mmol/L (137-145)
[2016-12-30 10:02] LABS: Anion Gap 7 mmol/L
[2016-12-30 10:14] LABS: Carbon Dioxide 41 mmol/L (22-30)
[2016-12-30 11:59] LABS: Glucose,Whole Blood 186 mg/dL (75-99)
--- NOTE | 2016-12-30 12:17 | P.PN ---
Subjective Principal diagnosis: Patient continues to use BiPAP intermittently. Would recommend home BiPAP to try to decrease readmissions to hospital Objective - Vital Signs Vital signs: Vital Signs Temp 97.9 F 12/30/16 07:00 Pulse 88 12/30/16 11:35 Resp 20 12/30/16 07:00 BP 143/85 12/30/16 07:00 Pulse Ox 93 L 12/30/16 07:00 Intake & Output 12/29/16 12/30/16 12/30/16 18:59 06:59 18:59 Intake Total 500 965 Balance 500 965 Weight 45.813 kg Intake: Oral 500 965 Other: Voiding Method Bedside Commode Bedside Commode # Voids 3 2 1 - Constitutional General appearance: Present: thin - EENT Eyes: Present: PERRLA Ears: bilateral: normal - Neck Neck: Present: normal ROM - Respiratory Respiratory: bilateral: diminished, wheezing - Cardiovascular Rhythm: regular - Gastrointestinal General gastrointestinal: Present: soft - Integumentary Integumentary: Present: normal - Neurologic Neurologic: Present: CNII-XII intact - Musculoskeletal Musculoskeletal: Present: generalized weakness - Psychiatric Psychiatric: Present: A&O x's 3, appropriate affect, intact judgment & insight - Labs CBC & Chem 7: 12/28/16 09:07 12/30/16 08:50 Labs: Abnormal Lab Results - Last 24 Hours (Table) 12/29/16 12/29/16 12/30/16 Range/Units 17:16 20:40 07:27 Chloride (98-107) mmol/L Carbon Dioxide (22-30) mmol/L BUN (7-17) mg/dL Creatinine (0.52-1.04) mg/dL Glucose (74-99) mg/dL POC Glucose (mg/dL) 204 H 174 H 143 H (75-99) mg/dL 12/30/16 12/30/16 Range/Units 08:50 11:58 Chloride 92 L (98-107) mmol/L Carbon Dioxide 41 H* (22-30) mmol/L BUN 20 H (7-17) mg/dL Creatinine 0.40 L (0.52-1.04) mg/dL Glucose 231 H (74-99) mg/dL POC Glucose (mg/dL) 186 H (75-99) mg/dL Assessment and Plan Plan: Assessment Sepsis secondary to tracheobronchitis Acute on chronic COPD Aaron stage IV chronic hypoxic hypercapnic respiratory failure Severe protein calorie malnutrition secondary to above Medical debility Osteoarthritis Cervical and lumbar disc degeneration opioid dependence Plan Continue with him Zosyn and bronchodilators steroids intermittent BiPAP use Continue pulmonary consultation
[2016-12-30 15:48] LABS: ABG HCO3 43 mmol/L (21-25); ABG PCO2 71 mmHg (35-45); ABG PO2 77 mmHg (83-108); ABG TCO2 45 mmol/L (19-24)
[2016-12-30 15:49] LABS: ABG Base Excess 17.2 mmol/L; ABG Oxygen Saturation 94.5 % (94-97)
--- NOTE | 2016-12-30 15:51 | PN ---
This is a 46-year-old female with a history of severe stage IV COPD. Her FEV1 is 27% of predicted. She was admitted with a diagnosis of COPD exacerbation. The patient has had multiple admissions to this hospital for same. Anyway, the patient is slowly improving. I mentioned something about possibly getting out of here tomorrow, and she just actually went ballistic and said she would in no way be ready to be discharged. Once she gets in the hospital, it is very difficult to get her out. She has been here for 4+ days already. She is 46. She has a history of COPD, hypoxemic respiratory failure, chronic and ongoing tobacco dependence, methicillin-resistant Staph aureus pulmonary infections, anorexia/cachexia syndrome, chronic illness, and also poor overall general functional status and general medical debility. Currently her vital signs include temperature 97.9, heart rate 84, respiratory rate 20, blood pressure 143/85, mean 104. Six-liter saturation 94% to 95%. Appears in no acute distress. HEENT examination is grossly unremarkable. Mucous membranes are moist. No oral lesions. NECK: Supple. Full range of motion. No adenopathy or thyromegaly. Neck veins are flat. Cardiovascular examination reveals regular rhythm and rate. S1, S2 normal. No S3, S4 or murmur. Lungs reveal severely diminished breath sounds. A few scattered coarse rhonchi. There are some expiratory wheezes. Breath sounds are severely diminished. Breath sounds are equal, though. ABDOMEN: Soft. Bowel sounds are heard. Extremities are intact. No cyanosis, clubbing or edema. Skin is without rash. Neurological examination is nonfocal. Lab data are reviewed. Sodium 140, potassium 4.2, chloride 92, CO2 41. BUN and creatinine were 20 and 0.4. Chest x-ray from December 28 shows only changes of COPD. No acute process. Medications are reviewed. She is on all the appropriate medications. ASSESSMENT: 1. Acute chronic obstructive pulmonary disease exacerbation complicated by mild purulent tracheobronchitis in a patient with severe/end-stage chronic obstructive pulmonary disease. 2. History of acute on chronic hypoxemic and hypercapnic respiratory failure. 3. Chronic and ongoing tobacco dependence, despite counseling. 4. History of methicillin-resistant Staphylococcus aureus pneumonia. 5. History of anorexia/cachexia syndrome of chronic illness. 6. General medical debility with inanition and poor nutrition. PLAN: The patient swears that this time she is not going to start smoking again. I doubt that. She says that all the time. She is counseled about the importance of smoking cessation. She is also counseled about the importance of the fact that each of these exacerbations probably cause further reduction in already poor lung function and probably are impeding her ability to improve. Anyway, she understands my position. She could be discharged tomorrow. No additional recommendations are made. Prognosis is very poor.
[2016-12-30 16:53] LABS: Glucose,Whole Blood 177 mg/dL (75-99)
[2016-12-30 21:39] LABS: Glucose,Whole Blood 207 mg/dL (75-99)
[2016-12-30] MEDS: risperiDONE 1 MG TAB PO SCH (21:55)
[2016-12-30] MEDS: traZODone HCL 100 MG TAB PO SCH (21:55)
[2016-12-30] MEDS: ASPIRIN 325 MG TAB PO SCH (21:55)
[2016-12-30] MEDS: MAGNESIUM OXIDE 400 MG TAB PO SCH (21:55)
[2016-12-30] MEDS: buPROPion SR 150 MG TABLET.ER PO SCH (21:55)
[2016-12-31] MEDS: IPRATROPIUM-ALBUTEROL 3 ML NEB INHALATION PRN ×2 (04:15→22:59)
[2016-12-31] MEDS: PIPERACILLIN-TAZOBACTAM 3.375 GM in DEXTROSE/WATER 1 50ML.BAG IVPB SCH ×3 (05:01→22:06)
[2016-12-31] MEDS: methylPREDNISolone SOD SUCCI 125 MG/2 ML VIAL IV SCH ×4 (05:01→22:56)
[2016-12-31] MEDS: HYDROmorphone 1 MG/ML 1 ML SYRINGE IVP PRN ×4 (05:02→22:57)
[2016-12-31 07:49] LABS: Glucose,Whole Blood 158 mg/dL (75-99)
[2016-12-31] MEDS: FORMOTEROL FUMARATE 20 MCG/2 ML NEBU INHALATION SCH ×2 (07:50→19:36)
[2016-12-31] MEDS: IPRATROPIUM-ALBUTEROL 3 ML NEB INHALATION SCH ×4 (07:50→19:36)
[2016-12-31] MEDS: BUDESONIDE 1 MG/2 ML NEBU INHALATION SCH ×2 (07:51→19:36)
[2016-12-31] MEDS: PANTOPRAZOLE 40 MG TABLET PO SCH ×2 (08:03→17:52)
[2016-12-31] MEDS: THEOPHYLLINE 24 HOUR 300 MG CAP.ER.24H PO SCH ×2 (08:03→22:03)
[2016-12-31] MEDS: MULTIVITAMINS, THERA 1 EACH TAB PO SCH (08:03)
[2016-12-31] MEDS: PREGABALIN 100 MG CAP PO SCH ×2 (08:03→22:06)
[2016-12-31] MEDS: INSULIN LISPRO (humaLOG) 300 UNIT/3 ML VIAL SQ SCH ×4 (08:03→22:01)
[2016-12-31] MEDS: NICOTINE 21MG/24HR PATCH TRANSDERM SCH (08:05)
[2016-12-31 10:15] LABS: Blood Urea Nitrogen 24 mg/dL (7-17); Calcium 9.9 mg/dL (8.4-10.2); Chloride 91 mmol/L (98-107); Glucose 196 mg/dL (74-99); Non-African American GFR(MDRD) >60 (>60 ml/min/1.73 sqM); Potassium 3.9 mmol/L (3.5-5.1); Sodium 141 mmol/L (137-145)
[2016-12-31 10:23] LABS: Anion Gap 6 mmol/L
[2016-12-31 10:35] LABS: Carbon Dioxide 44 mmol/L (22-30)
--- NOTE | 2016-12-31 10:57 | PN ---
This is a 46-year-old female with a history of Gold stage IV COPD. Her FEV1 is 27% of predicted. She was admitted again this time with a COPD exacerbation. The patient in my opinion could be discharged home. We will leave that up to the primary service. She is denying that she is ready to be discharged. She does have severe COPD. She does not take her medications properly and continues to smoke which is why she has recurrent COPD exacerbations. Feeling a bit better today. Not quite back to baseline. The current vital signs include a temperature 97.4, heart rate 86, respiratory rate 20, blood pressure 141/92 and a 6 L saturation is 96%, that can be titrated down. HEENT examination is grossly unremarkable. Mucous membranes are moist. No oral lesions. Neck is supple. Full range of motion. No adenopathy or thyromegaly. Neck veins are flat. Cardiovascular examination reveals distant heart sounds. S1, S2 normal. Heart rate about 90 beats per minute, maybe a bit higher. S1, S2 normal. There is a soft systolic murmur heard. Lungs reveal diminished breath sounds. Just a few scattered rhonchi and wheezes. Breath sounds are diminished. There is prolongation. ABDOMEN: Soft. Bowel sounds are heard. Extremities are intact. No cyanosis, clubbing or edema. Skin is without rash. Neurological examination is nonfocal. No new labs to report. No new x-rays to report. ASSESSMENT: 1. Acute on chronic obstructive pulmonary disease exacerbation complicated by mild purulent tracheobronchitis in a patient with severe/end-stage chronic obstructive pulmonary disease. 2. History of acute on chronic hypoxemic and hypercapnic respiratory failure. 3. Chronic and ongoing tobacco dependence, despite counseling. 4. History of methicillin-resistant Staphylococcus aureus pneumonia. 5. History of anorexia/cachexia syndrome. 6. General medical debility with inanition and poor nutrition. PLAN: In my opinion, the patient could be discharged home. Will leave that up to the primary service. She should be discharged home on prednisone burst and taper and some antibiotic. I will be glad to see her in the office. No additional recommendations are made. Prognosis is very guarded.
[2016-12-31 12:31] LABS: Glucose,Whole Blood 145 mg/dL (75-99)
[2016-12-31] MEDS: ALPRAZolam 0.25 MG TAB PO PRN (12:57)
[2016-12-31 17:35] LABS: Glucose,Whole Blood 180 mg/dL (75-99)
--- NOTE | 2016-12-31 20:48 | PN ---
DATE OF SERVICE: 12/31/2016 I am covering for Dr. Italo John. This 46-year-old woman with a past medical history of multiple medical problems, including COPD, history of chronic hypoxic respiratory failure, history of malnutrition, was admitted with COPD, acute exacerbation, severe hypoxic respiratory failure as well as possible sepsis related to purulent tracheobronchitis. The patient also had hypoxia. The patient is on and off BiPAP at this time. ABG was done yesterday which showed pH of 7.40 and pCO2 71 and pO2 of 77. Bicarb was 43. The patient is being closely monitored at this time. Patient is extremely short of breath, even while trying to complete sentences at this time. Dr. Lino is following the patient closely. Past medical history reviewed. REVIEW OF SYSTEMS: CARDIOVASCULAR SYSTEM: No angina, palpitations. RESPIRATORY SYSTEM: As mentioned earlier. GI: As mentioned earlier. : No dysuria, retention. NERVOUS SYSTEM: No numbness or weakness. Current medications are reviewed and include: 1. Providence 10 mg t.i.d. p.r.n. 2. DuoNeb q.i.d. and p.r.n. 3. Xanax 0.25 t.i.d. 4. Aspirin 325 mg at bedtime. 5. Pulmicort 1 mg b.i.d. 6. Wellbutrin SR 150 mg at bedtime. 7. Perforomist 20 mg b.i.d. 8. Dilaudid 1 mg q.6 p.r.n. 9. Magnesium oxide 400 mg at bedtime. 10. Solu-Medrol 60 IV q.6. 11. Habitrol 21 daily. 12. Zosyn 3.375 IV q.8. 13. Lyrica 100 mg p.o. b.i.d. 14. Risperdal 3 mg at bedtime. 15. Requip 0.5 mg at bedtime. 16. Akhil-24 300 mg p.o. b.i.d. 17. Desyrel 10 mg p.o. at bedtime. PHYSICAL EXAMINATION: Patient is alert and oriented x3. Pulse is 81, blood pressure 136/88, respiration 20, temperature 97.2, pulse ox 97% on 3 L. HEENT: Conjunctivae normal. Oral mucosa moist. NECK: No jugular venous distention. No carotid bruit. No lymph node enlargement. CARDIOVASCULAR SYSTEM: S1, S2 muffled. RESPIRATORY SYSTEM: Breath sounds diminished at the bases. Bilateral scattered rhonchi and crackles. Expiratory wheezing also present. ABDOMEN: Soft, nontender, scaphoid. No mass palpable. LEGS: No edema. No swelling. NERVOUS SYSTEM: Diffusely weak. BMI is only 17.9. LABS: WBC 11.9. Hemoglobin 11.4. Other labs are noted. ASSESSMENT: 1. Chronic obstructive pulmonary disease, acute exacerbation, with acute hypoxic hypercarbic respiratory failure, on BiPAP intermittently. 2. Acute purulent tracheobronchitis with possible sepsis, present on admission. 3. Chronic obstructive pulmonary disease with Gold stage IV chronic obstructive pulmonary disease. 4. Severe protein-calorie malnutrition with a body mass index of 17.9. 5. Generalized medical debility. 6. Degenerative joint disease. 7. Cervical and lumbar degenerative joint disease. 8. History of multiple hospitalizations. 9. History of methicillin-resistant Staphylococcus aureus. 10. History of gastroesophageal reflux disease. 11. Hyperlipidemia. 12. History of chronic migraines. 13. Peptic ulcer disease. 14. Cervical cancer. 15. History of cholecystectomy. 16. Anxiety, bipolar depression not otherwise specified. 17. History of tetrahydrocannabinol. 18. Increased random blood sugar, possibly secondary to steroids. 19. FULL CODE. RECOMMENDATIONS AND DISCUSSION: In this 46-year-old woman who presented with multiple complex medical issues, we will monitor the patient closely, continue the symptomatic treatment, continue with intensive bronchodilators, IV steroids. Monitor blood sugars closely. Broad-spectrum IV antibiotics. I would also recommend Case Management and Discharge Planning to work on the CPAP as recommended by Pulmonary and based on the ABGs, for which the patient qualifies apparently. Will continue to monitor. Prognosis guarded. Further recommendations to follow. Please see orders for further details.
[2016-12-31 21:05] LABS: Glucose,Whole Blood 234 mg/dL (75-99)
[2016-12-31] MEDS: ASPIRIN 325 MG TAB PO SCH (22:01)
[2016-12-31] MEDS: buPROPion SR 150 MG TABLET.ER PO SCH (22:01)
[2016-12-31] MEDS: risperiDONE 1 MG TAB PO SCH (22:02)
[2016-12-31] MEDS: MAGNESIUM OXIDE 400 MG TAB PO SCH (22:02)
[2016-12-31] MEDS: traZODone HCL 100 MG TAB PO SCH (22:03)
[2017-01-01] MEDS: PIPERACILLIN-TAZOBACTAM 3.375 GM in DEXTROSE/WATER 1 50ML.BAG IVPB SCH ×2 (04:09→11:20)
[2017-01-01] MEDS: HYDROmorphone 1 MG/ML 1 ML SYRINGE IVP PRN ×3 (04:54→17:08)
[2017-01-01] MEDS: methylPREDNISolone SOD SUCCI 125 MG/2 ML VIAL IV SCH ×3 (05:50→15:44)
[2017-01-01 07:35] LABS: Glucose,Whole Blood 124 mg/dL (75-99)
[2017-01-01] MEDS: INSULIN LISPRO (humaLOG) 300 UNIT/3 ML VIAL SQ SCH ×3 (07:59→17:06)
[2017-01-01] MEDS: FORMOTEROL FUMARATE 20 MCG/2 ML NEBU INHALATION SCH (08:01)
[2017-01-01] MEDS: BUDESONIDE 1 MG/2 ML NEBU INHALATION SCH (08:01)
[2017-01-01] MEDS: IPRATROPIUM-ALBUTEROL 3 ML NEB INHALATION SCH ×3 (08:01→14:51)
[2017-01-01] MEDS: MULTIVITAMINS, THERA 1 EACH TAB PO SCH (08:11)
[2017-01-01] MEDS: THEOPHYLLINE 24 HOUR 300 MG CAP.ER.24H PO SCH (08:11)
[2017-01-01] MEDS: PREGABALIN 100 MG CAP PO SCH (08:11)
[2017-01-01] MEDS: PANTOPRAZOLE 40 MG TABLET PO SCH ×2 (08:11→15:45)
[2017-01-01] MEDS: HYDROcodone/APAP 10-325MG 1 EACH TAB PO PRN (08:12)
[2017-01-01] MEDS: NICOTINE 21MG/24HR PATCH TRANSDERM SCH (08:12)
[2017-01-01 09:23] LABS: Blood Urea Nitrogen 30 mg/dL (7-17); Chloride 94 mmol/L (98-107); Glucose 141 mg/dL (74-99); Non-African American GFR(MDRD) >60 (>60 ml/min/1.73 sqM); Potassium 5.2 mmol/L (3.5-5.1); Sodium 143 mmol/L (137-145)
[2017-01-01 09:29] LABS: Anion Gap 9 mmol/L
[2017-01-01 09:45] LABS: Carbon Dioxide 40 mmol/L (22-30)
[2017-01-01 11:55] LABS: Glucose,Whole Blood 155 mg/dL (75-99)
[2017-01-01] MEDS: ALPRAZolam 0.25 MG TAB PO PRN (14:17)
[2017-01-01 17:03] LABS: Glucose,Whole Blood 304 mg/dL (75-99)
--- NOTE | 2017-01-01 17:09 | PN ---
A 46-year-old female with a history of severe COPD. She has got stage IV disease. She was admitted way back on December 26, 2016. She has been here since. She is in my opinion at baseline. She complains that she is not feeling much better. I did mention yesterday she could be discharged home, but appears that she does not want to be discharged home. Anyway, part of the problem with [facility] is that she does not take her medications as prescribed and she continues to smoke. Every time she is here in the hospital, she promises that she is going to stop smoking, but she never does and she has multiple admissions to the hospital. Anyway, the patient in my opinion is at baseline; is short of breath. Does have chronic dyspnea on any activity. Coughing a bit. Not producing any phlegm. Current vital signs are reviewed. Her temperature is 98.1, heart rate 95, respiratory rate 20, blood pressure 149/103, her saturations are 97% on 5 L. She can be weaned down to 3 L. Her saturations are perfectly okay in the 88% to 92% range. This way too much oxygen for her. Appears in no acute distress. No respiratory distress. No audible wheezing. HEENT examination is grossly unremarkable. Mucous membranes are moist. No oral lesions. Neck is supple. No adenopathy or thyromegaly. Full range of motion. Neck veins are flat. Cardiovascular examination reveals regular rhythm and rate. Heart rate about 80. S1, S2 normal. No murmur. Lungs reveal severely diminished breath sounds. A few scattered rhonchi. No wheezes or crackles. Abdomen is soft. Bowel sounds are heard. Extremities are intact. No cyanosis, clubbing or edema. Skin is without rash. Neurologic examination is nonfocal. Labs are reviewed. Sodium 143, potassium 5.2, chloride is 94, CO2 of 40, BUN and creatinine were 30 and 0.5. No recent x-rays to report. ASSESSMENT: 1. Acute on chronic hypoxemic respiratory failure secondary to chronic obstructive pulmonary with mild purulent tracheobronchitis in a patient with severe end-stage chronic obstructive pulmonary disease. 2. Chronic and ongoing tobacco dependence, despite counseling. 3. History of methicillin-resistant Staphylococcus aureus pneumonia. 4. History of anorexia cachexia syndrome. 5. General medical debility with inanition and poor nutrition. PLAN: The patient's overall prognosis is very poor. She continues to smoke cigarettes. I reviewed the microbiology all of which is negative. Her medications are appropriate. I mentioned on several dictations now what she should be discharged home on. Will continue to follow only as needed.
[2017-01-01] MEDS ORDERED: MAGNESIUM OXIDE 400 MG TAB ONE (21:00)
[2017-01-01] MEDS ORDERED: risperiDONE 1 MG TAB ONE (21:00)
[2017-01-01] MEDS ORDERED: IPRATROPIUM-ALBUTEROL 3 ML NEB ONE (21:00)
[2017-01-01] MEDS ORDERED: FORMOTEROL FUMARATE 20 MCG/2 ML NEBU INHALATION ONE (21:00)
[2017-01-01] MEDS ORDERED: PREGABALIN 100 MG CAP ONE (21:00)
[2017-01-01] MEDS ORDERED: ASPIRIN 325 MG TAB ONE (21:00)
[2017-01-01] MEDS ORDERED: BUDESONIDE 1 MG/2 ML NEBU INHALATION ONE (21:00)
[2017-01-01] MEDS ORDERED: HYDROmorphone 1 MG/ML 1 ML SYRINGE ONE (21:00)
[2017-01-01] MEDS ORDERED: buPROPion SR 150 MG TABLET.ER PO ONE (21:00)
[2017-01-01] MEDS ORDERED: THEOPHYLLINE 24 HOUR 300 MG CAP.ER.24H PO ONE (21:00)
[2017-01-01] MEDS ORDERED: traZODone HCL 100 MG TAB ONE (21:00)
[2017-01-01 23:06] LABS: Glucose,Whole Blood 222 mg/dL (75-99)
[2017-01-02] MEDS ORDERED: methylPREDNISolone SOD SUCCI 125 MG/2 ML VIAL ONE
[2017-01-02] MEDS: FORMOTEROL FUMARATE 20 MCG/2 ML NEBU INHALATION SCH ×2 (00:22→07:17)
[2017-01-02] MEDS: BUDESONIDE 1 MG/2 ML NEBU INHALATION SCH ×2 (00:22→07:17)
[2017-01-02] MEDS: IPRATROPIUM-ALBUTEROL 3 ML NEB INHALATION SCH ×5 (00:23→20:13)
[2017-01-02] MEDS: ALPRAZolam 0.25 MG TAB PO PRN (02:20)
[2017-01-02] MEDS: PIPERACILLIN-TAZOBACTAM 3.375 GM in DEXTROSE/WATER 1 50ML.BAG IVPB SCH ×4 (04:45→20:50)
[2017-01-02] MEDS: HYDROmorphone 1 MG/ML 1 ML SYRINGE IVP PRN ×4 (04:45→22:59)
[2017-01-02 06:55] LABS: Glucose,Whole Blood 145 mg/dL (75-99)
[2017-01-02] MEDS: ASPIRIN 325 MG TAB PO SCH ×2 (07:42→20:53)
[2017-01-02] MEDS: buPROPion SR 150 MG TABLET.ER PO SCH ×2 (07:42→20:53)
[2017-01-02] MEDS: MAGNESIUM OXIDE 400 MG TAB PO SCH ×2 (07:42→20:53)
[2017-01-02] MEDS: INSULIN LISPRO (humaLOG) 300 UNIT/3 ML VIAL SQ SCH ×5 (07:42→21:02)
[2017-01-02] MEDS: PREGABALIN 100 MG CAP PO SCH ×3 (07:43→20:53)
[2017-01-02] MEDS: traZODone HCL 100 MG TAB PO SCH ×2 (07:43→20:53)
[2017-01-02] MEDS: THEOPHYLLINE 24 HOUR 300 MG CAP.ER.24H PO SCH ×3 (07:43→20:53)
[2017-01-02] MEDS: risperiDONE 1 MG TAB PO SCH ×2 (07:43→20:53)
[2017-01-02] MEDS: methylPREDNISolone SOD SUCCI 125 MG/2 ML VIAL IV SCH ×3 (07:44→12:51)
[2017-01-02] MEDS: NICOTINE 21MG/24HR PATCH TRANSDERM SCH (08:07)
[2017-01-02] MEDS: MULTIVITAMINS, THERA 1 EACH TAB PO SCH (08:08)
[2017-01-02] MEDS: PANTOPRAZOLE 40 MG TABLET PO SCH ×2 (08:08→16:52)
[2017-01-02 10:35] LABS: Anion Gap 6 mmol/L; Basophils # (A) 0.1 k/uL (0-0.2); Basophils % (A) 1 %; Blood Urea Nitrogen 33 mg/dL (7-17); CH 25.9; CHCM 29.7; Calcium 9.8 mg/dL (8.4-10.2); Carbon Dioxide 37 mmol/L (22-30); Chloride 95 mmol/L (98-107); Eosinophils # (A) 0.1 k/uL (0-0.7); Eosinophils % (A) 0 %; Glucose 143 mg/dL (74-99); HCT 40.3 % (34.0-46.0); HGB 12.3 gm/dL (11.4-16.0); Hypochromasia Marked; Luc # (Auto) 0.41; Luc % (Auto) 2; Lymphocytes # (A) 2.4 k/uL (1.0-4.8); Lymphocytes % (A) 12 %; MCH 26.6 pg (25.0-35.0); MCHC 30.5 g/dL (31.0-37.0); MCV 87.4 fL (80.0-100.0); Mean Platelet Volume 6.3; Monocytes # (A) 0.8 k/uL (0-1.0); Monocytes % (A) 4 %; Neutrophils # (A) 16.3 k/uL (1.3-7.7); Neutrophils % (A) 81 %; Non-African American GFR(MDRD) >60 (>60 ml/min/1.73 sqM); RBC 4.61 m/uL (3.80-5.40); RDW 15.8 % (11.5-15.5); Sodium 138 mmol/L (137-145); WBC 20.1 k/uL (3.8-10.6); WBC (Perox) 19.68
[2017-01-02 12:29] LABS: Glucose,Whole Blood 103 mg/dL (75-99)
--- NOTE | 2017-01-02 12:55 | PN ---
DATE OF SERVICE: 01/01/2017 I am covering for Dr. Italo John. This 47-year-old woman was admitted with COPD acute exacerbation. Also had acute hypoxic respiratory failure. The patient was evaluated for nighttime CPAP. No chest pain or palpitation. ABG has been noted. PAST MEDICAL HISTORY: Reviewed. REVIEW OF SYSTEMS: CARDIOVASCULAR: As mentioned earlier. GI: As mentioned earlier. : No dysuria. Nervous system: No numbness or weakness. Current medications are reviewed and include: 1. [place] 10 mg t.i.d. p.r.n. 2. DuoNeb q.i.d. and p.r.n. 3. Xanax 0.25 t.i.d. 4. Aspirin 325 mg at bedtime. 5. Pulmicort 1 mg b.i.d. 6. Wellbutrin SR 150 mg at bedtime. 7. Perforomist 20 mg b.i.d. 8. Dilaudid 1 mg q.6 p.r.n. 9. Magnesium oxide 400 mg at bedtime. 10. Solu-Medrol 60 IV q.6. 11. Habitrol 21 daily. 12. Protonix 40 mg a day. 13. Zosyn 3.375 IV q.8. 14. Lyrica 100 mg p.o. b.i.d. 15. Risperdal 3 mg at bedtime. 16. Requip 0.5 mg at bedtime. 17. Akhil-24 300 mg p.o. b.i.d. 18. Desyrel 300 mg p.o. at bedtime. PHYSICAL EXAMINATION: Patient is alert and oriented x3. Pulse is 95, blood pressure 130/91, respirations 19, temperature 98.4, pulse ox 97% on BiPap. HEENT: Conjunctivae normal. Oral mucosa moist. NECK: No jugular venous distention. No carotid bruit. No lymph node enlargement. CARDIOVASCULAR SYSTEM: S1, S2 muffled. RESPIRATORY SYSTEM: Breath sounds diminished at the bases. Bilateral scattered rhonchi and crackles. Expiratory wheezing also present. ABDOMEN: Soft, nontender. LEGS: No edema. No swelling. NERVOUS SYSTEM: No focal deficits. LABS: Sodium 140, potassium ntd. ASSESSMENT: 1. Chronic obstructive pulmonary disease, acute exacerbation, with acute hypoxic hypercarbic respiratory failure, on BiPAP intermittently. 2. Acute purulent tracheobronchitis with possible sepsis, present on admission. 3. Chronic obstructive pulmonary disease with Gold stage IV. 4. Severe protein-calorie malnutrition with a body mass index of 17.9. 5. Generalized medical debility. 6. Degenerative joint disease. 7. Cervical and lumbar degenerative joint disease. 8. History of multiple hospitalizations. 9. History of methicillin-resistant Staphylococcus aureus. 10. History of gastroesophageal reflux disease. 11. Hyperlipidemia. 12. History of chronic migraines. 13. Peptic ulcer disease. 14. Cervical cancer history. 15. History of cholecystectomy. 16. Anxiety, bipolar depression not otherwise specified. 17. History of tetrahydrocannabinol. 18. Increased random blood sugar, possibly secondary to steroids. 19. FULL CODE. RECOMMENDATIONS AND DISCUSSION: This 46-year-old woman presented with multiple complex medical issues. We will monitor the patient closely, continue the current medication, continue symptomatic treatment. Otherwise, we will repeat labs. 24 hour and overnight pulse oximetry. The prognosis is guarded because of multiple medical issues. Further recommendations to follow. MTDD
[2017-01-02] MEDS ORDERED: LOPERAMIDE 2 MG CAP PO PRN (15:42)
[2017-01-02 17:18] LABS: Glucose,Whole Blood 198 mg/dL (75-99)
[2017-01-02] MEDS ORDERED: LOPERAMIDE 2 MG CAP PO SCH (18:00)
[2017-01-02] MEDS: SYMBICORT 160-4.5 MCG INHALER INHALATION SCH (20:13)
[2017-01-02 22:14] LABS: Glucose,Whole Blood 156 mg/dL (75-99)
--- NOTE | 2017-01-02 22:51 | PN ---
46-year-old female with a history of severe COPD she has stage IV disease. She was admitted back on December 26. Feeling better every day. I think she is pretty much at her baseline. She is not inclined to want to go home. Once she gets here she likes to spend a good five to seven number of days here or longer. In my opinion, again, she is back to her baseline. Is short of breath with any activity. Minimal cough. Not producing any phlegm. No audible wheezing. CURRENT VITAL SIGNS: Temperature 98.7, heart rate 80, respiratory rate 19, blood pressure 120/82, mean 97, 5 liters saturation 95%, that could be weaned down. HEENT examination is grossly unremarkable. Mucous membranes are moist. No oral lesions. Neck is supple. Full range of motion. No adenopathy or thyromegaly. Neck veins are flat. Cardiovascular examination reveals regular rhythm and rate. S1, S2 normal. Heart sounds are distant. No murmur. Lungs reveal a few scattered wheezes and rhonchi. Breath sounds are diminished. There is significant lack of breath sounds because of her severe emphysema. There is some mild prolongation on forced maneuver. ABDOMEN: Soft. Bowel sounds are heard. EXTREMITIES: Intact. No significant cyanosis, clubbing or edema. Skin shows areas of ecchymosis probably some steroids. NEUROLOGICAL: Examination is nonfocal. Labs are reviewed. White count 20.1, hemoglobin 12.2, hematocrit 40.3, platelet count 502,000. Sodium and potassium normal. Chloride is 95, CO2 of 37, BUN creatinine were 33 and 0.37. Labs are reviewed. Medications are reviewed. Microbiology is all negative. ASSESSMENT: 1. Acute on chronic hypoxemic and hypercapnic respiratory failure, triggered by purulent tracheobronchitis in a patient with end-stage severe chronic obstructive pulmonary disease. 2. Chronic and ongoing tobacco dependence despite counseling. 3. History of methicillin-resistant Staph aureus pneumonia. 4. History of anorexia cachexia syndrome. 5. General medical debility and intonation with poor nutrition. PLAN: The patient is at baseline. No additional recommendations are made. We will continue to follow. Prognosis is guarded. Medications are reviewed. Changes will be made.
[2017-01-03] MEDS: PIPERACILLIN-TAZOBACTAM 3.375 GM in DEXTROSE/WATER 1 50ML.BAG IVPB SCH ×2 (04:03→12:12)
[2017-01-03] MEDS: HYDROmorphone 1 MG/ML 1 ML SYRINGE IVP PRN ×2 (04:56→10:50)
[2017-01-03] MEDS: HYDROcodone/APAP 10-325MG 1 EACH TAB PO PRN (06:30)
[2017-01-03] MEDS: ALPRAZolam 0.25 MG TAB PO PRN (06:30)
[2017-01-03] MEDS: NICOTINE 21MG/24HR PATCH TRANSDERM SCH (07:43)
[2017-01-03 07:49] LABS: Glucose,Whole Blood 99 mg/dL (75-99)
[2017-01-03] MEDS: PANTOPRAZOLE 40 MG TABLET PO SCH (08:02)
[2017-01-03] MEDS: THEOPHYLLINE 24 HOUR 300 MG CAP.ER.24H PO SCH (08:02)
[2017-01-03] MEDS: INSULIN LISPRO (humaLOG) 300 UNIT/3 ML VIAL SQ SCH ×2 (08:02→12:54)
[2017-01-03] MEDS: MULTIVITAMINS, THERA 1 EACH TAB PO SCH (08:04)
[2017-01-03] MEDS: PREGABALIN 100 MG CAP PO SCH (08:04)
[2017-01-03] MEDS: SYMBICORT 160-4.5 MCG INHALER INHALATION SCH (08:24)
[2017-01-03] MEDS: IPRATROPIUM-ALBUTEROL 3 ML NEB INHALATION SCH ×2 (08:24→12:13)
[2017-01-03] MEDS ORDERED: predniSONE 20 MG TAB PO SCH (09:00)
[2017-01-03 09:55] LABS: Basophils # (A) 0.1 k/uL (0-0.2); Basophils % (A) 0 %; CH 26.3; CHCM 29.9; Eosinophils # (A) 0.1 k/uL (0-0.7); Eosinophils % (A) 0 %; HCT 42.4 % (34.0-46.0); HDW 2.76; HGB 12.8 gm/dL (11.4-16.0); Hypochromasia Marked; Luc # (Auto) 0.37; Luc % (Auto) 1; Lymphocytes # (A) 2.9 k/uL (1.0-4.8); Lymphocytes % (A) 11 %; MCH 26.6 pg (25.0-35.0); MCHC 30.2 g/dL (31.0-37.0); MCV 88.2 fL (80.0-100.0); Mean Platelet Volume 6.5; Monocytes # (A) 1.2 k/uL (0-1.0); Monocytes % (A) 5 %; Neutrophils # (A) 22.2 k/uL (1.3-7.7); Neutrophils % (A) 83 %; RDW 15.8 % (11.5-15.5); WBC (Perox) 25.96
[2017-01-03 09:58] LABS: WBC 26.9 k/uL (3.8-10.6)
[2017-01-03 10:39] LABS: Anion Gap 5 mmol/L; Blood Urea Nitrogen 42 mg/dL (7-17); Calcium 9.1 mg/dL (8.4-10.2); Carbon Dioxide 39 mmol/L (22-30); Chloride 94 mmol/L (98-107); Glucose 154 mg/dL (74-99); Non-African American GFR(MDRD) >60 (>60 ml/min/1.73 sqM); Potassium 4.5 mmol/L (3.5-5.1); Sodium 138 mmol/L (137-145)
[2017-01-03 11:47] LABS: Glucose,Whole Blood 147 mg/dL (75-99)
--- NOTE | 2017-01-03 12:20 | PN ---
DATE OF SERVICE: 01/02/2017 I am covering for Dr. Italo John. This 46-year-old woman who was admitted with COPD acute exacerbation is closely being monitored and evaluated for the home BiPAP at this time. No chest pain or palpitations. No fever. On exam, alert and oriented x3. Pulse is 84, blood pressure is 113/78, respirations 18, temperature 97.4, pulse ox is 94% on 5 L HEENT: Conjunctivae normal. NECK: No jugular venous distention. CARDIOVASCULAR: S1 and S2, muffled. RESPIRATORY: Breath sounds diminished at the bases. Bilateral scattered rhonchi and crackles. Expiratory wheezing also present. ABDOMEN: Soft, nontender. LEGS: No edema, no swelling. NERVOUS SYSTEM: No focal deficits. LABS: WBC 20.1. Creatinine 0.37. Accu-Cheks are noted. ASSESSMENT: 1. Chronic obstructive pulmonary disease, acute exacerbation, with acute hypoxic hypercarbic respiratory failure on BiPAP intermittently especially at night. 2. Acute purulent tracheobronchitis with possibly sepsis, present on admission. 3. Chronic obstructive pulmonary disease with Gold stage IV. 4. Severe protein calorie malnutrition with body mass index of 17.9. 5. Generalized medical debility. 6. Degenerative joint disease. 7. Cervical lumbar degenerative joint disease. 8. History of multiple hospitalizations. 9. History of methicillin-resistant Staphylococcus aureus. 10. History of gastroesophageal reflux disease. 11. Hyperlipidemia. 12. History of chronic migraines. 13. Peptic ulcer disease. 14. Cervical cancer history. 15. History of cholecystectomy. 16. Anxiety, bipolar depression, not otherwise specified. 17. History of THC. 18. Increased random blood sugar, possibly secondary to steroids. 19. FULL CODE. RECOMMENDATIONS AND DISCUSSION: Recommend to continue with the current medications, continue symptomatic treatment. Otherwise, at this time, I would recommend continue with bronchodilators. Continue monitoring and evaluation for home CPAP. Further recommendations to follow.
[2017-01-03 15:05] VITALS: BP 130/93; PULSE 112; RESP 19; TEMP 98.2
--- NOTE | 2017-01-03 17:02 | P.PN ---
Subjective 46-year-old here patient with advanced COPD, and states COPD and a chronic smoker with multiple hospitalization for COPD exacerbation the past. During this current hospitalization, the patient had a similar admission of increased shortness of breath and the patient was treated with a combination of bronchodilators steroids. The patient is about to get discharged today home. Her blood gases showed significantly abnormal CO2 retention which was well compensated and there was no evidence of any acidosis. I was trying to approve a noninvasive positive pressure ventilation for this patient and I think and a AVAPS UNIT will be an ideal candidate for her. Based on that the appropriate orders was given. THE PATIENT DENIES HAVING ANY SPECIFIC COMPLAINTS. SHE IS ABLE TO SPEAK FULL SENTENCES AND NO EDEMA IN LOWER EXTREMITIES. HER NUTRITIONAL STATUS IS POOR. SHE IS NONCOMPLIANT TO TREATMENT. Objective - Vital Signs Vital signs: Vital Signs Temp 98.2 F 01/03/17 15:00 Pulse 112 H 01/03/17 15:00 Resp 19 01/03/17 15:00 BP 130/93 01/03/17 15:00 Pulse Ox 95 01/03/17 15:00 Intake & Output 01/02/17 01/03/17 01/03/17 18:59 06:59 18:59 Intake Total 1040 Balance 1040 Weight 45.813 kg Intake: Oral 1040 Other: Voiding Method Toilet Toilet # Voids 3 1 3 # Bowel Movements 1 - Exam The patient appeared well nourished and normally developed. Vital signs as documented. Head exam is unremarkable. No scleral icterus or corneal arcus noted. Neck is without jugular venous distension, thyromegaly, or carotid bruits. Carotid upstrokes are brisk bilaterally. LUNG SOUNDS ARE MARKEDLY DIMINISHED BILATERALLY ALONG WITH DIFFUSE EXTREMITY WHEEZES THROUGHOUT THE LUNG GREENE. Cardiac exam reveals the PMI to be normally sized and situated. Rhythm is regular. First and second heart sounds normal. No murmurs, rubs or gallops. Abdominal exam reveals normal bowel sounds, no masses, no organomegaly and no aortic enlargement. Extremities are nonedematous and both femoral and pedal pulses are NORMAL. - Labs CBC & Chem 7: 01/03/17 09:19 01/03/17 09:19 Labs: Abnormal Lab Results - Last 24 Hours (Table) 01/02/17 01/02/17 01/03/17 Range/Units 17:15 20:58 09:19 WBC 26.9 H* (3.8-10.6) k/uL MCHC 30.2 L (31.0-37.0) g/dL RDW 15.8 H (11.5-15.5) % Plt Count 490 H (150-450) k/uL Neutrophils # 22.2 H (1.3-7.7) k/uL Monocytes # 1.2 H (0-1.0) k/uL Chloride (98-107) mmol/L Carbon Dioxide (22-30) mmol/L BUN (7-17) mg/dL Creatinine (0.52-1.04) mg/dL Glucose (74-99) mg/dL POC Glucose (mg/dL) 198 H 156 H (75-99) mg/dL 01/03/17 01/03/17 Range/Units 09:19 11:44 WBC (3.8-10.6) k/uL MCHC (31.0-37.0) g/dL RDW (11.5-15.5) % Plt Count (150-450) k/uL Neutrophils # (1.3-7.7) k/uL Monocytes # (0-1.0) k/uL Chloride 94 L (98-107) mmol/L Carbon Dioxide 39 H (22-30) mmol/L BUN 42 H (7-17) mg/dL Creatinine 0.43 L (0.52-1.04) mg/dL Glucose 154 H (74-99) mg/dL POC Glucose (mg/dL) 147 H (75-99) mg/dL Assessment and Plan Plan: ASSESSMENT 1 acute COPD exacerbation, recovered 2 advanced COPD with chronic hypoxic respiratory failure 3 chronic hypercapnic respiratory failure, compensated based on most recent blood gas 4 smoking 5 poor based on nutrition performance status secondary to above-mentioned comorbidities Plan Patient can be discharged home on her routine bronchodilators and inhalers. Prednisone burst taper. I will send a ordered for a AVAPS unit to [facility] and the patient will be set at tidal volume 400, EPAP minimum of 4 and the maximum of 20, pressure support minimal for a maximum of 20. She'll be given a full face mask. She'll see me back in the office and I'll be glad to follow-up on her compliance and clinical response if she obtains the unit.
--- NOTE | 2017-01-04 18:32 | DS ---
DATE OF ADMISSION: 12/26/2016 DATE OF DISCHARGE: 01/03/2017 FINAL DIAGNOSES: 1. Chronic obstructive pulmonary disease, acute exacerbation, with acute hypoxic hypercarbic respiratory failure, on BiPAP intermittently, especially at night. 2. Acute purulent tracheobronchitis with possible early sepsis, present on admission. 3. Chronic obstructive pulmonary disease with Gold stage IV disease. 4. Severe protein-calorie malnutrition with body mass index 17.9. 5. Generalized medical debility. 6. Degenerative joint disease. 7. Cervical lumbar degenerative joint disease. 8. History of multiple hospitalizations. 9. History of methicillin-resistant Staphylococcus aureus. 10. History of gastroesophageal reflux disease. 11. Hyperlipidemia. 12. History of chronic migraine. 13. History of peptic ulcer disease. 14. History of cervical cancer. 15. History of cholecystectomy. 16. Anxiety, bipolar depression not otherwise specified. 17. History of tetrahydrocannabinol. 18. Increased random blood sugar, possibly secondary to steroids. 19. FULL CODE. DISCHARGE DISPOSITION: Patient will be discharged in stable condition with guarded prognosis. HISTORY OF PRESENT ILLNESS: This 46-year-old woman with a past medical history of multiple medical problems, was admitted with COPD, acute exacerbation. Patient also had multiple other complex medical issues, as mentioned earlier. Patient was treated with intensive bronchodilators, steroids, as well as BiPAP. manager payment and social media assistant were trying to get BiPAP authorized at home; however, recommended a sleep study and further followup in the outpatient setting. On exam, vitals are stable. CARDIOVASCULAR SYSTEM: S1, S2 muffled. RESPIRATORY SYSTEM: Bilateral scattered rhonchi. Breathing efforts are much improved. Pulmonary cleared the patient for discharge. DISCHARGE ADVICE AND MEDICATION: 1. Diet is cardiac. 2. Activity limited until followup. 3. Follow up with Dr. Italo John in 2 to 3 days. 4. Follow up with Dr. Molina in 2 weeks. 5. Xanax 0.25 t.i.d. p.r.n. 6. Ventolin HFA 2 puffs q.i.d. and p.r.n. 7. Augmentin 875 mg p.o. b.i.d. for 5 days. 8. Ecotrin 325 mg at bedtime. 9. Symbicort 160/4.5 two puffs b.i.d. 10. Crosby 10 mg t.i.d. p.r.n. 11. Atrovent updrafts 2 puffs q.i.d. 12. Imodium 2 mg p.o. q.i.d. 13. Magnesium oxide 400 mg at bedtime. 14. Multivitamin 1 p.o. daily. 15. Habitrol 21 daily. 16. Prilosec 40 mg p.o. b.i.d. 17. Lyrica 100 mg p.o. b.i.d. 18. Akhil-24 300 mg p.o. b.i.d. 19. Prednisone taper with 40 mg daily for 3 days; 30 mg daily for 3 days; then resume the home dose of maintenance steroids. 20. Requip 0.5 mg at bedtime. 21. Risperdal 3 mg p.o. at bedtime. 22. Trazodone 300 mg at bedtime. Once again, the patient will be discharged in stable condition with guarded prognosis.
== END 2017-01-03 15:31 | disposition home health service (06) | DRG 871 ==
LOC: EC 18:51 → 4MS4W 20:24
PROVIDERS: ADMIT Family Medicine; ATTEND Family Medicine
PROC: 5A09557 Assistance with Respiratory Ventilation, Greater than 96 Consecutive Hours, Continuous Positive Airway Pressure (ICD-10-PCS; principal; 2016-12-26)
DX: A41.9 Sepsis, unspecified organism (principal); E43 Unspecified severe protein-calorie malnutrition; J96.21 Acute and chronic respiratory failure with hypoxia; J96.22 Acute and chronic respiratory failure with hypercapnia; J44.0 Chronic obstructive pulmonary disease with (acute) lower respiratory infection; F11.20 Opioid dependence, uncomplicated; J44.1 Chronic obstructive pulmonary disease with (acute) exacerbation; M50.222 Other cervical disc displacement at C5-C6 level; E78.5 Hyperlipidemia, unspecified; F17.210 Nicotine dependence, cigarettes, uncomplicated; F41.9 Anxiety disorder, unspecified; G43.909 Migraine, unspecified, not intractable, without status migrainosus; G89.4 Chronic pain syndrome; I25.2 Old myocardial infarction; J20.9 Acute bronchitis, unspecified; K21.9 Gastro-esophageal reflux disease without esophagitis; M19.90 Unspecified osteoarthritis, unspecified site; M47.816 Spondylosis without myelopathy or radiculopathy, lumbar region; M47.812 Spondylosis without myelopathy or radiculopathy, cervical region; M50.30 Other cervical disc degeneration, unspecified cervical region; M51.36 Other intervertebral disc degeneration, lumbar region; F12.10 Cannabis abuse, uncomplicated; F32.9 Major depressive disorder, single episode, unspecified; J45.909 Unspecified asthma, uncomplicated; Z86.14 Personal history of Methicillin resistant Staphylococcus aureus infection; Z68.1 Body mass index [BMI] 19.9 or less, adult; Z99.81 Dependence on supplemental oxygen; Z85.41 Personal history of malignant neoplasm of cervix uteri; Z79.52 Long term (current) use of systemic steroids; Z79.82 Long term (current) use of aspirin; Z79.899 Other long term (current) drug therapy; Z91.14 Patient's other noncompliance with medication regimen; Z91.19 Patient's noncompliance with other medical treatment and regimen; Z88.1 Allergy status to other antibiotic agents; Z88.5 Allergy status to narcotic agent; Z88.2 Allergy status to sulfonamides; Z88.8 Allergy status to other drugs, medicaments and biological substances
CPT/HCPCS: 36415; 36600; 71010; 80048; 80053; 80202; 82550; 82553; 82805; 83735; 83880; 84484; 85025; 85379; 85610; 85730; 87070; 87205; 87324; 93005; 94640; 94644; 94660; 94760; 94762

== ENCOUNTER 2017-01-16 16:00 | Inpatient (IN) | payer OTHER ==
[2017-01-16] MEDS ORDERED: methylPREDNISolone SOD SUCCI 125 MG/2 ML VIAL IV STA (16:28)
[2017-01-16] MEDS ORDERED: AZITHROMYCIN 500 MG in SODIUM CHLORIDE 0.9% 250 ML IVPB STA (16:28)
[2017-01-16] MEDS ORDERED: ALBUTEROL NEBULIZED 2.5 MG/3 ML INHALATION STA (16:28)
[2017-01-16] MEDS ORDERED: IPRATROPIUM 0.5 MG/2.5 ML NEBU INHALATION STA (16:28)
[2017-01-16] MEDS ORDERED: SODIUM CHLORIDE 0.9% 1,000 ML IV STA ×2 (16:28)
[2017-01-16] MEDS ORDERED: LORazepam 2 MG/ML SYRINGE IV STA (16:28)
[2017-01-16] MEDS ORDERED: SODIUM CHLORIDE 0.9% 500 ML IV STA (16:28)
--- NOTE | 2017-01-16 16:44 | XR ---
EXAMINATION TYPE: XR chest 1V portable DATE OF EXAM: 01/16/2017 4:35 PM COMPARISON: 01/07/2017 HISTORY: Short of breath TECHNIQUE: Single frontal view of the chest is obtained. FINDINGS: Heart size is normal. There is coarsening of interstitial markings. There are no hilar mas ses. There is no pleural effusion. There is mild pulmonary hyperinflation. IMPRESSION: COPD. There is some pulmonary interstitial edema that could relate to congestive heart f ailure. This appears new compared to old exam.
[2017-01-16 16:55] LABS: Anisocytosis Slight; Basophils % (A) 0 %; CH 26.4; Eosinophils # (A) 0.1 k/uL (0-0.7); Eosinophils % (A) 1 %; HDW 3.09; Hypochromasia Moderate; Luc # (Auto) 0.16; Luc % (Auto) 2; Lymphocytes # (A) 1.3 k/uL (1.0-4.8); Lymphocytes % (A) 13 %; MCH 26.9 pg (25.0-35.0); MCHC 31.4 g/dL (31.0-37.0); Mean Platelet Volume 6.5; Monocytes # (A) 0.2 k/uL (0-1.0); Monocytes % (A) 2 %; Neutrophils # (A) 8.7 k/uL (1.3-7.7); Neutrophils % (A) 83 %; RBC 4.09 m/uL (3.80-5.40); RDW 16.4 % (11.5-15.5); WBC 10.5 k/uL (3.8-10.6); WBC (Perox) 11.01
[2017-01-16 17:05] LABS: INR 1.2 (<1.1); Partial Thromboplastin Time 23.2 sec (22.0-30.0); Prothrombin Time 12.3 sec (9.0-12.0)
[2017-01-16 17:12] LABS: MCV 85.5 fL (80.0-100.0)
[2017-01-16 17:21] LABS: Alkaline Phosphatase 145 U/L (38-126); Anion Gap 7 mmol/L; Blood Urea Nitrogen 40 mg/dL (7-17); Calcium 8.8 mg/dL (8.4-10.2); Carbon Dioxide 34 mmol/L (22-30); Chloride 99 mmol/L (98-107); Glucose 148 mg/dL (74-99); Magnesium 1.9 mg/dL (1.6-2.3); Non-African American GFR(MDRD) >60 (>60 ml/min/1.73 sqM); Sodium 140 mmol/L (137-145); Total Bilirubin 0.6 mg/dL (0.2-1.3); Total Protein 5.9 g/dL (6.3-8.2)
[2017-01-16 17:25] LABS: Potassium 5.2 mmol/L (3.5-5.1)
[2017-01-16 17:35] LABS: Creatine Kinase MB 2.7 ng/mL (0.0-2.4); Troponin I 0.245 ng/mL (0.000-0.034)
[2017-01-16 17:50] LABS: ALT 4310 U/L (9-52); AST 7173 U/L (14-36)
--- NOTE | 2017-01-16 18:00 | ED ---
General Adult HPI - General Chief complaint: Shortness of Breath Stated complaint: Diff Breathing/Lethargic Time Seen by Provider: 01/16/17 16:21 Source: patient, RN notes reviewed, old records reviewed Mode of arrival: wheelchair Limitations: no limitations - History of Present Illness Initial comments: This is a 46-year-old female ER for evaluation of significant shortness of breath, respiratory disease cough and congestion. Patient severely short of breath. Patient does sore from severe COPD he continues to smoke. No fevers, no chest pain. Patient does complain of increased cough and congestion. - Related Data Home Medications Medication Instructions Recorded Confirmed Albuterol Inhaler [Ventolin Hfa 2 puff INHALATION RT-QID PRN 01/03/14 12/26/16 Inhaler] Omeprazole [PriLOSEC] 40 mg PO BID 01/03/14 12/26/16 Multivitamins, Thera [Multivitamin 1 tab PO DAILY 12/24/14 12/26/16 (formulary)] risperiDONE 3 mg PO HS 12/24/14 12/26/16 traZODone HCL 300 mg PO HS 12/24/14 12/26/16 buPROPion SR [Wellbutrin SR] 150 mg PO HS 04/30/15 12/26/16 Aspirin [Aspirin EC] 325 mg PO HS 03/24/16 12/26/16 Ipratropium [place] [Atrovent Hfa] 2 puff INHALATION RT-QID 07/07/16 12/26/16 HYDROcodone/APAP 10-325MG [[place] 1 tab PO TID PRN 07/08/16 12/26/16 10-325] rOPINIRole HCL 0.5 mg PO HS 07/18/16 12/26/16 Pregabalin [Lyrica] 100 mg PO BID 10/31/16 12/26/16 Magnesium Oxide [Mag-Ox] 400 mg PO HS 12/26/16 12/26/16 Previous Rx's Medication Instructions Recorded Budesonide-Formot 160-4.5 Mcg 2 puff INHALATION RT-BID puff 07/13/16 [Symbicort 160-4.5 Mcg Inhaler] Theophylline 24 Hour [Akhil-24] 300 mg PO BID 30 Days 07/21/16 ALPRAZolam [Xanax] 0.25 mg PO TID PRN #30 tab 09/13/16 predniSONE 20 mg PO DAILY #0 11/26/16 Albuterol Nebulized [Ventolin 2.5 mg INHALATION RT-QID #0 01/03/17 Nebulized] Amoxic-Pot Clav 875-125Mg 1 tab PO Q12HR #10 tablet 01/03/17 [Augmentin 875-125] Loperamide [Imodium] 2 mg PO QID PRN #20 cap 01/03/17 Nicotine 21Mg/24Hr Patch [Habitrol] 1 patch TRANSDERM DAILY #30 patch 01/03/17 predniSONE 40 mg PO DAILY #9 tab 01/03/17 Allergies Allergy/AdvReac Type Severity Reaction Status Date / Time aripiprazole [From Abilify] Allergy Rash/Hives Verified 12/26/16 18:57 honey Allergy Rash/Hives Verified 12/26/16 18:57 methadone [Methadone] Allergy Itching Verified 12/26/16 18:57 naproxen Allergy Rash/Hives Verified 12/26/16 18:57 sulfamethoxazole Allergy Rash/Hives Verified 12/26/16 18:57 [From Bactrim] tetracycline [Tetracycline] Allergy Rash/Hives Verified 12/26/16 18:57 trimethoprim [From Bactrim] Allergy Rash/Hives Verified 12/26/16 18:57 adhesive tape AdvReac Rash/Hives Verified 12/26/16 18:57 codeine AdvReac Abdominal Verified 12/26/16 18:57 Pain ketorolac tromethamine AdvReac Vomiting Verified 12/26/16 18:57 [From Toradol] pregabalin [From Lyrica] AdvReac Unknown Verified 12/26/16 18:57 tramadol HCl [From Ultram] AdvReac SEIZURES Verified 12/26/16 18:57 tromethamine AdvReac Nausea & Verified 12/26/16 18:57 Vomiting Review of Systems ROS Statement: Those systems with pertinent positive or pertinent negative responses have been documented in the HPI. ROS Other: All systems not noted in ROS Statement are negative. Past Medical History Past Medical History: Asthma, Cancer, Chest Pain / Angina, COPD, GERD/Reflux, Hyperlipidemia, Osteoarthritis (OA) Additional Past Medical History / Comment(s): COPD which is been end-stage with frequent hospitalization for acute COPD exacerbation. The patient has chronic hypoxic and hypercapnic respiratory failure. 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, cervical and lumbar spine spondylosis, chronic migraines, peptic ulcer disease/gastric ulcers, carpal tunnel disease bilaterally, herniated disc at level of C5-C6 and C7, cervical cancer, depression, cachexia and malnourishment and significant loss and total body protein mass Last Myocardial Infarction Date:: UNK History of Any Multi-Drug Resistant Organisms: MRSA Date of last positivie culture/infection: 06/18/2015 MDRO Source:: SPUTUM Past Surgical History: Section, Cholecystectomy, Hysterectomy, Tubal Ligation Additional Past Surgical History / Comment(s): x 2, colonoscopy with benign polypectomy. Past Anesthesia/Blood Transfusion Reactions: No Reported Reaction Additional Past Anesthesia/Blood Transfusion Reaction / Comment(s): Pt has never recieved blood. Past Psychological History: Anxiety, Bipolar, Depression Additional Psychological History / Comment(s): Pt resides with her son jessica. She performs her own ADLs. She has home O2 at 5 L/[place] ATC. She does not drive but her son takes her places. she uses a walker as needed. Per her old medical record dated 07/06/14 pt was seen in [facility] ER for suicide attempt and admitted to psych. Relates that she is an ongoing tobacco smoker-smokes 3 CIG/ DAY. She does not have experience. She has no international travels. Smoking Status: Current every day smoker Past Alcohol Use History: None Reported Additional Past Alcohol Use History / Comment(s): ADMITS TO SMOKING 3 CIG PER DAY. Past Drug Use History: Marijuana Additional Drug Use History / Comment(s): OCC MARIJUANA USE - Past Family History Father Family Medical History: No Reported History Additional Family Medical History / Comment(s): WAS AN ALCOHOLIC Mother Family Medical History: Cancer Additional Family Medical History / Comment(s): AT AGE 54-BOWEL CANCER General Exam Limitations: no limitations General appearance: alert, in no apparent distress, anxious Head exam: Present: atraumatic, normocephalic, normal inspection Eye exam: Present: normal appearance, PERRL, EOMI. Absent: scleral icterus, conjunctival injection, periorbital swelling ENT exam: Present: normal exam, mucous membranes moist Neck exam: Present: normal inspection. Absent: tenderness, meningismus, lymphadenopathy Respiratory exam: Present: normal lung sounds bilaterally, respiratory distress , wheezes, accessory muscle use, decreased breath sounds, prolonged expiratory. Absent: rales, rhonchi, stridor Cardiovascular Exam: Present: normal rhythm, tachycardia, normal heart sounds. Absent: systolic murmur, diastolic murmur, rubs, gallop, clicks GI/Abdominal exam: Present: soft, normal bowel sounds. Absent: distended, tenderness, guarding, rebound, rigid Extremities exam: Present: normal inspection, full ROM, normal capillary refill. Absent: tenderness, pedal edema, joint swelling, calf tenderness Back exam: Present: normal inspection Neurological exam: Present: alert, oriented X3, CN II-XII intact Psychiatric exam: Present: normal affect, normal mood Skin exam: Present: warm, dry, intact, normal color. Absent: rash Course Vital Signs 01/16/17 01/16/17 01/16/17 16:19 16:38 16:47 Temperature 98.4 F Pulse Rate 110 H 104 H Respiratory 24 24 Rate Blood Pressure 109/58 O2 Sat by Pulse 70 L Oximetry 01/16/17 01/16/17 01/16/17 17:14 17:41 18:03 Temperature Pulse Rate 110 H 115 H 115 H Respiratory 28 H 28 H Rate Blood Pressure 127/72 127/72 O2 Sat by Pulse 96 90 L Oximetry - Reevaluation(s) Reevaluation #1: 01/16/17 18:12 Patient is actually getting worse prolonged. She, patient was placed on BiPAP EKG Findings - EKG Comments: EKG Findings:: EKG shows sinus tachycardia rate 160, VA 134, QRS 80, QTC 422 Medical Decision Making - Medical Decision Making 46-year-old ER for evaluation shortness of breath significant shortness of breath, respiratory failure now placed on BiPAP. Increased cough or congestion , she does admit to smoking not taking medications as prescribed - Lab Data Result diagrams: 01/16/17 16:45 01/16/17 16:45 Lab Results 01/16/17 01/16/17 01/16/17 Range/Units 16:45 16:45 16:45 WBC 10.5 (3.8-10.6) k/uL RBC 4.09 (3.80-5.40) m/uL Hgb 11.0 L (11.4-16.0) gm/dL Hct 35.0 (34.0-46.0) % MCV 85.5 D (80.0-100.0) fL MCH 26.9 (25.0-35.0) pg MCHC 31.4 (31.0-37.0) g/dL RDW 16.4 H (11.5-15.5) % Plt Count 479 H (150-450) k/uL Neutrophils % 83 % Lymphocytes % 13 % Monocytes % 2 % Eosinophils % 1 % Basophils % 0 % Neutrophils # 8.7 H (1.3-7.7) k/uL Lymphocytes # 1.3 (1.0-4.8) k/uL Monocytes # 0.2 (0-1.0) k/uL Eosinophils # 0.1 (0-0.7) k/uL Basophils # 0.0 (0-0.2) k/uL Hypochromasia Moderate Anisocytosis Slight PT (9.0-12.0) sec INR (<1.1) APTT (22.0-30.0) sec Sodium 140 (137-145) mmol/L Potassium 5.2 H (3.5-5.1) mmol/L Chloride 99 (98-107) mmol/L Carbon Dioxide 34 H (22-30) mmol/L Anion Gap 7 mmol/L BUN 40 H (7-17) mg/dL Creatinine 0.60 (0.52-1.04) mg/dL Est GFR (MDRD) Af Amer >60 (>60 ml/min/1.73 sqM) Est GFR (MDRD) Non-Af >60 (>60 ml/min/1.73 sqM) Glucose 148 H (74-99) mg/dL Calcium 8.8 (8.4-10.2) mg/dL Magnesium 1.9 (1.6-2.3) mg/dL Total Bilirubin 0.6 (0.2-1.3) mg/dL AST 7173 H (14-36) U/L ALT 4310 H (9-52) U/L Alkaline Phosphatase 145 H (38-126) U/L Total Creatine Kinase 50 (30-135) U/L CK-MB (CK-2) 2.7 H* (0.0-2.4) ng/mL CK-MB (CK-2) Rel Index 5.4 Troponin I 0.245 H* (0.000-0.034) ng/mL NT-Pro-B Natriuret Pep pg/mL Total Protein 5.9 L (6.3-8.2) g/dL Albumin 3.3 L (3.5-5.0) g/dL 01/16/17 01/16/17 Range/Units 16:45 16:45 WBC (3.8-10.6) k/uL RBC (3.80-5.40) m/uL Hgb (11.4-16.0) gm/dL Hct (34.0-46.0) % MCV (80.0-100.0) fL MCH (25.0-35.0) pg MCHC (31.0-37.0) g/dL RDW (11.5-15.5) % Plt Count (150-450) k/uL Neutrophils % % Lymphocytes % % Monocytes % % Eosinophils % % Basophils % % Neutrophils # (1.3-7.7) k/uL Lymphocytes # (1.0-4.8) k/uL Monocytes # (0-1.0) k/uL Eosinophils # (0-0.7) k/uL Basophils # (0-0.2) k/uL Hypochromasia Anisocytosis PT 12.3 H (9.0-12.0) sec INR 1.2 (<1.1) APTT 23.2 (22.0-30.0) sec Sodium (137-145) mmol/L Potassium (3.5-5.1) mmol/L Chloride (98-107) mmol/L Carbon Dioxide (22-30) mmol/L Anion Gap mmol/L BUN (7-17) mg/dL Creatinine (0.52-1.04) mg/dL Est GFR (MDRD) Af Amer (>60 ml/min/1.73 sqM) Est GFR (MDRD) Non-Af (>60 ml/min/1.73 sqM) Glucose (74-99) mg/dL Calcium (8.4-10.2) mg/dL Magnesium (1.6-2.3) mg/dL Total Bilirubin (0.2-1.3) mg/dL AST (14-36) U/L ALT (9-52) U/L Alkaline Phosphatase (38-126) U/L Total Creatine Kinase (30-135) U/L CK-MB (CK-2) (0.0-2.4) ng/mL CK-MB (CK-2) Rel Index Troponin I (0.000-0.034) ng/mL NT-Pro-B Natriuret Pep 2150 pg/mL Total Protein (6.3-8.2) g/dL Albumin (3.5-5.0) g/dL - Radiology Data Radiology results: report reviewed (Chest x-ray shows mild CHF), image reviewed Critical Care Time Critical Care Time: Yes Total Critical Care Time: 31 Disposition Clinical Impression: COPD (chronic obstructive pulmonary disease) with emphysema, Anxiety, Acute respiratory failure, Adult respiratory distress syndrome, COPD (chronic obstructive pulmonary disease), Asthma exacerbation in COPD Disposition: ADMITTED IP TO THIS [facility] Condition: Serious Referrals: Italo John MD [Primary Care Provider] - 1-2 days
[2017-01-16 18:12] LABS: Acetaminophen <10.0 ug/mL
[2017-01-16 18:43] LABS: Hepatitis B Surface Ag Index 0.06
[2017-01-16 18:49] LABS: Hepatitis B Core IgM Index 0.02
[2017-01-16 19:01] LABS: Hepatitis C Virus IgG Ab Negative (Negative); Hepatitis C Virus IgG Index 0.01
[2017-01-16] MEDS: IPRATROPIUM-ALBUTEROL 3 ML NEB INHALATION SCH (19:33)
--- NOTE | 2017-01-16 20:02 | US ---
EXAMINATION TYPE: US gallbladder DATE OF EXAM: 01/16/2017 COMPARISON: NONE CLINICAL HISTORY: Pain. Patient disoriented, unable to obtain history, difficult study due to patient motion during exam, exam done portable in ER EXAM MEASUREMENTS: Liver Length: 15.9 cm Gallbladder Wall: n/a CBD: 0.5 cm Right Kidney: 12.3 x 4.2 x 4.9 cm Pancreas: head and body wnl, tail obscured by overlying midline bowel gas Liver: dilated portal vein at 1.8cm, otherwise visualized portions of liver appear wnl Gallbladder: not seen with certainty, possible contracted gallbladder seen Evidence for sonographic Zarate's sign: n/a CBD: visualized portion wnl, limited by overlying bowel gas Right Kidney: visualized portion wnl, inferior pole limited by overlying bowel gas IMPRESSION: Gallbladder is not definitely seen. No dilated ducts. No focal liver defect.
[2017-01-16] MEDS ORDERED: IV VANCOMYCIN PER PHARMACY 1 EACH MISC MISCELLANE PRN (20:29)
[2017-01-16] MEDS ORDERED: ALPRAZolam 0.25 MG TAB PO PRN (20:30)
[2017-01-16] MEDS ORDERED: LOPERAMIDE 2 MG CAP PO PRN (20:30)
[2017-01-16] MEDS ORDERED: VANCOMYCIN 750 MG in SODIUM CHLORIDE 0.9% 250 ML IVPB SCH (21:00)
[2017-01-16] MEDS ORDERED: VANCOMYCIN 750 MG in SODIUM CHLORIDE 0.9% 250 ML IVPB ONE (21:00)
[2017-01-16] MEDS: ASPIRIN 325 MG TAB PO SCH (21:31)
[2017-01-16] MEDS: buPROPion SR 150 MG TABLET.ER PO SCH (21:31)
[2017-01-16] MEDS: MAGNESIUM OXIDE 400 MG TAB PO SCH (21:32)
[2017-01-16] MEDS: risperiDONE 1 MG TAB PO SCH (21:32)
[2017-01-16] MEDS: PREGABALIN 100 MG CAP PO SCH (21:32)
[2017-01-16] MEDS: traZODone HCL 100 MG TAB PO SCH (21:32)
[2017-01-16] MEDS: PANTOPRAZOLE 40 MG/10 ML VIAL IVP SCH (21:39)
[2017-01-16] MEDS: SODIUM CHLORIDE 0.9% 1,000 ML IV SCH (21:41)
[2017-01-16 21:43] LABS: Glucose,Whole Blood 200 mg/dL (75-99)
[2017-01-16] MEDS: INSULIN LISPRO (humaLOG) 300 UNIT/3 ML VIAL SQ SCH (21:56)
[2017-01-16] MEDS: IPRATROPIUM-ALBUTEROL 3 ML NEB INHALATION PRN (23:20)
[2017-01-17] MEDS: PIPERACILLIN-TAZOBACTAM 3.375 GM in DEXTROSE/WATER 1 50ML.BAG IVPB SCH ×4 (00:35→23:55)
[2017-01-17] MEDS: methylPREDNISolone SOD SUCCI 125 MG/2 ML VIAL IV SCH ×5 (00:51→23:56)
[2017-01-17] MEDS: IPRATROPIUM-ALBUTEROL 3 ML NEB INHALATION PRN (03:17)
[2017-01-17 06:01] LABS: Anisocytosis Slight; Basophils % (A) 0 %; CH 26.1; CHCM 29.5; Eosinophils % (A) 0 %; HCT 35.8 % (34.0-46.0); HGB 10.6 gm/dL (11.4-16.0); Hypochromasia Marked; Luc # (Auto) 0.06; Luc % (Auto) 1; Lymphocytes # (A) 0.5 k/uL (1.0-4.8); Lymphocytes % (A) 6 %; MCH 26.3 pg (25.0-35.0); MCHC 29.7 g/dL (31.0-37.0); MCV 88.7 fL (80.0-100.0); Mean Platelet Volume 6.7; Monocytes # (A) 0.1 k/uL (0-1.0); Monocytes % (A) 2 %; Neutrophils # (A) 7.6 k/uL (1.3-7.7); Neutrophils % (A) 92 %; RBC 4.04 m/uL (3.80-5.40); RDW 16.4 % (11.5-15.5); WBC 8.3 k/uL (3.8-10.6); WBC (Perox) 8.56
[2017-01-17 06:16] LABS: Alkaline Phosphatase 157 U/L (38-126); Blood Urea Nitrogen 23 mg/dL (7-17); Calcium 8.5 mg/dL (8.4-10.2); Chloride 104 mmol/L (98-107); Glucose 146 mg/dL (74-99); Magnesium 2.1 mg/dL (1.6-2.3); Non-African American GFR(MDRD) >60 (>60 ml/min/1.73 sqM); Potassium 4.4 mmol/L (3.5-5.1); Sodium 146 mmol/L (137-145); Total Bilirubin 0.6 mg/dL (0.2-1.3); Total Protein 5.9 g/dL (6.3-8.2)
[2017-01-17] MEDS: INSULIN LISPRO (humaLOG) 300 UNIT/3 ML VIAL SQ SCH ×4 (06:31→21:05)
[2017-01-17 06:46] LABS: Glucose,Whole Blood 142 mg/dL (75-99)
[2017-01-17 06:49] LABS: ALT 3952 U/L (9-52); AST 4635 U/L (14-36); Anion Gap 4 mmol/L; Carbon Dioxide 38 mmol/L (22-30)
--- NOTE | 2017-01-17 07:55 | XR ---
EXAMINATION TYPE: XR chest 1V portable DATE OF EXAM: 01/17/2017 COMPARISON: Prior chest x-ray 01/16/2017 HISTORY: COPD TECHNIQUE: Single frontal view of the chest is obtained. FINDINGS: There is no focal air space opacity, pleural effusion, or pneumothorax seen. The cardiac silhouette size is within normal limits. The osseous structures are intact. IMPRESSION: No acute cardiopulmonary disease is evident.
[2017-01-17] MEDS: FORMOTEROL FUMARATE 20 MCG/2 ML NEBU INHALATION SCH ×2 (08:10→19:33)
[2017-01-17] MEDS: BUDESONIDE 1 MG/2 ML NEBU INHALATION SCH ×2 (08:10→19:33)
[2017-01-17] MEDS: VANCOMYCIN 1,000 MG in SODIUM CHLORIDE 0.9% 250 ML IVPB SCH ×3 (08:11→21:02)
[2017-01-17] MEDS: PREGABALIN 100 MG CAP PO SCH ×2 (08:11→21:02)
[2017-01-17] MEDS: THEOPHYLLINE 24 HOUR 400 MG CAP.ER.24H PO SCH (08:11)
[2017-01-17] MEDS: MULTIVITAMINS, THERA 1 EACH TAB PO SCH (08:11)
[2017-01-17] MEDS: buPROPion SR 150 MG TABLET.ER PO SCH ×2 (08:11→21:01)
[2017-01-17] MEDS: PANTOPRAZOLE 40 MG/10 ML VIAL IVP SCH (08:11)
[2017-01-17] MEDS: IPRATROPIUM-ALBUTEROL 3 ML NEB INHALATION SCH ×4 (08:11→19:33)
[2017-01-17] MEDS: NICOTINE 21MG/24HR PATCH TRANSDERM SCH (08:58)
[2017-01-17] MEDS: ENOXAPARIN 40 MG/0.4 ML SYRINGE SQ SCH (08:58)
--- NOTE | 2017-01-17 10:09 | CONS ---
DATE OF CONSULTATION: Ameena Shaw is a 46 -year-old female with severe lung disease and continues to smoke. She came in with shortness of breath. She is currently on a BiPAP mask. Her cardiac enzymes are borderline. Liver enzymes are severely elevated. 12 lead ECG shows sinus tachycardia, normal ST segments. She denies any chest discomfort. Her main complaint is shortness of breath. Medication list was reviewed in the chart. ALLERGIES: FAIRLY EXTENSIVE LIST OF ALLERGIES AND IT IS IN DOCUMENTED IN THE CHART. REVIEW OF SYSTEMS: Not available. She has difficulty breathing, ( ) on a BiPAP mask. On examination, her blood pressure is 147/90 mmHg, pulse rate is in the 60s, she is afebrile. Head and neck examination she is very frail. Breath sounds are reduced bilaterally. Very poor entry bilaterally. ABDOMEN: Soft. Nontender. Heart sounds are soft. IMPRESSION: 1. Short of breath which is pulmonary in origin. 2. Elevated blood pressure. SUGGEST: 1. Blood pressure reviewed. 2. Blood pressure measurement with an appropriate sized cuff and if this is elevated then antihypertensive therapy should be continued. 3. Stop smoking. 4. 2-D echo and Doppler study.
[2017-01-17 10:36] LABS: Hemoglobin A1C 6.8 % (4.2-6.1)
[2017-01-17 11:45] LABS: Glucose,Whole Blood 143 mg/dL (75-99)
--- NOTE | 2017-01-17 12:19 | P.CNPUL ---
History of Present Illness Consult date: 01/17/17 Requesting physician: Torin Kaur Reason for consult: dyspnea, COPD Chief complaint: Shortness of breath History of present illness: This is a 46-year-old white female with history of severe end-stage COPD, O2 dependent, prednisone dependent, patient is frequently in the hospital for acute COPD exacerbation, she is here on the average of at least once a month. In spite of her severe COPD, the patient continues to smoke, and I even doubt compliance with medications. Patient came into the ER last night with mostly few days history of increased shortness of breath, cough, wheezing, and congestion. Initial chest x-ray question possibility of interstitial edema, her pro BNP level was elevated, and her liver enzymes were elevated. Patient was diuresed, placed on BiPAP, and I was asked to see her on consultation. In the meantime she was placed back on her usual bronchodilators, antibiotics, and IV steroids. At the time of my evaluation, patient was resting comfortably on BiPAP. She is on IPAP of 14, EPAP of 5, and FiO2 of 55%. Patient denies any headaches no blurred vision no dizziness. No nausea no vomiting no abdominal pain no melena no hematemesis is no dysuria and no frequency no urgency. Review of Systems 14 point review of systems were obtained, please refer to pertinent positives and negatives as per HPI. Past Medical History Past Medical History: Asthma, Cancer, Chest Pain / Angina, COPD, GERD/Reflux, Hyperlipidemia, Osteoarthritis (OA) Additional Past Medical History / Comment(s): COPD which is been end-stage with frequent hospitalization for acute COPD exacerbation. The patient has chronic hypoxic and hypercapnic respiratory failure. 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, cervical and lumbar spine spondylosis, chronic migraines, peptic ulcer disease/gastric ulcers, carpal tunnel disease bilaterally, herniated disc at level of C5-C6 and C7, cervical cancer, depression, cachexia and malnourishment and significant loss and total body protein mass Last Myocardial Infarction Date:: UNK History of Any Multi-Drug Resistant Organisms: MRSA Date of last positivie culture/infection: 06/18/2015 MDRO Source:: SPUTUM Past Surgical History: Section, Cholecystectomy, Hysterectomy, Tubal Ligation Additional Past Surgical History / Comment(s): x 2, colonoscopy with benign polypectomy. Past Anesthesia/Blood Transfusion Reactions: No Reported Reaction Additional Past Anesthesia/Blood Transfusion Reaction / Comment(s): Pt has never recieved blood. Past Psychological History: Anxiety, Bipolar, Depression Additional Psychological History / Comment(s): Pt resides with her son jessica. She performs her own ADLs. She has home O2 at 5 L/[place] ATC. She does not drive but her son takes her places. she uses a walker as needed. Per her old medical record dated 07/06/14 pt was seen in [facility] ER for suicide attempt and admitted to psych. Relates that she is an ongoing tobacco smoker-smokes 3 CIG/ DAY. She does not have experience. She has no international travels. Smoking Status: Current every day smoker Past Alcohol Use History: None Reported Additional Past Alcohol Use History / Comment(s): ADMITS TO SMOKING 3 CIG PER DAY. Past Drug Use History: Marijuana Additional Drug Use History / Comment(s): OCC MARIJUANA USE - Past Family History Father Family Medical History: No Reported History Additional Family Medical History / Comment(s): WAS AN ALCOHOLIC Mother Family Medical History: Cancer Additional Family Medical History / Comment(s): AT AGE 54-BOWEL CANCER Medications and Allergies Home Medications Medication Instructions Recorded Confirmed Type Albuterol Inhaler [Ventolin Hfa 2 puff INHALATION RT-QID PRN 01/03/14 01/16/17 History Inhaler] Omeprazole [PriLOSEC] 40 mg PO BID 01/03/14 01/16/17 History Multivitamins, Thera [Multivitamin 1 tab PO DAILY 12/24/14 01/16/17 History (formulary)] risperiDONE 3 mg PO HS 12/24/14 01/16/17 History traZODone HCL 300 mg PO HS 12/24/14 01/16/17 History buPROPion SR [Wellbutrin SR] 150 mg PO BID 04/30/15 01/16/17 History Aspirin [Aspirin EC] 325 mg PO HS 03/24/16 01/16/17 History Ipratropium [place] [Atrovent Hfa] 2 puff INHALATION RT-QID 07/07/16 01/16/17 History HYDROcodone/APAP 10-325MG [[place] 1 tab PO TID PRN 07/08/16 01/16/17 History 10-325] rOPINIRole HCL 0.5 mg PO HS 07/18/16 01/16/17 History Pregabalin [Lyrica] 100 mg PO BID 10/31/16 01/16/17 History Magnesium Oxide [Mag-Ox] 400 mg PO HS 12/26/16 01/16/17 History Theophylline 24 Hour [Akhil-24] 200 mg PO BID 01/16/17 01/16/17 History Allergies Allergy/AdvReac Type Severity Reaction Status Date / Time aripiprazole [From Abilify] Allergy Rash/Hives Verified 12/26/16 18:57 honey Allergy Rash/Hives Verified 12/26/16 18:57 methadone [Methadone] Allergy Itching Verified 12/26/16 18:57 naproxen Allergy Rash/Hives Verified 12/26/16 18:57 sulfamethoxazole Allergy Rash/Hives Verified 12/26/16 18:57 [From Bactrim] tetracycline [Tetracycline] Allergy Rash/Hives Verified 12/26/16 18:57 trimethoprim [From Bactrim] Allergy Rash/Hives Verified 12/26/16 18:57 adhesive tape AdvReac Rash/Hives Verified 12/26/16 18:57 codeine AdvReac Abdominal Verified 12/26/16 18:57 Pain ketorolac tromethamine AdvReac Vomiting Verified 12/26/16 18:57 [From Toradol] pregabalin [From Lyrica] AdvReac Unknown Verified 12/26/16 18:57 tramadol HCl [From Ultram] AdvReac SEIZURES Verified 12/26/16 18:57 tromethamine AdvReac Nausea & Verified 12/26/16 18:57 Vomiting Physical Exam Vitals: Vital Signs Temp Pulse Pulse Resp BP BP Pulse Ox 01/17/17 08:49 104 H 01/17/17 08:26 106 H 01/17/17 08:25 106 H 01/17/17 08:13 102 H 01/17/17 08:00 97.5 F L 86 22 147/90 99 01/17/17 03:28 91 01/17/17 03:26 96.9 F L 103 H 23 166/71 95 01/17/17 03:17 103 H 01/17/17 00:00 97 F L 102 H 38 H 131/78 99 01/16/17 23:34 98 05/28/17 23:22 108 H 01/16/17 20:00 97 F L 107 H 42 H 142/85 98 01/16/17 19:46 111 H 01/16/17 19:37 110 H 01/16/17 19:03 97.9 F 113 H 24 115/71 99 01/16/17 18:03 115 H 28 H 127/72 90 L 01/16/17 17:41 115 H 01/16/17 17:14 110 H 28 H 127/72 96 01/16/17 16:47 24 01/16/17 16:38 104 H 01/16/17 16:19 98.4 F 110 H 24 109/58 70 L Intake and Output 01/16/17 01/17/17 01/17/17 22:59 06:59 14:59 Intake Total 1050 Balance 1050 Intake: IV 1050 Sodium Chloride 0.9% 1, 800 000 ml @ 50 mls/hr IV . Q20H [place] Rx#:[id number] Vancomycin 750 mg In 250 Sodium Chloride 0.9% 250 ml @ 125 mls/hr IVPB Q24H [place] Rx#:[id number] Other: Voiding Method Bedpan Bedpan Weight 46.266 kg 45.5 kg Physical Exam: Revealed a 46-year-old, frail and chronically ill looking, on BiPAP. HEENT:[Neck is supple.] [No neck masses.] [No thyromegaly.] [No JVD.] Chest: [Diffuse crackles or rhonchi and wheezes noted bilaterally.] Cardiac Exam: [Normal S1 and S2, no S3 gallop, no murmur.] Abdomen: [Soft, nontender, no megaly, no rebound, no guarding, normal bowel sounds.] Extremities: [No clubbing, no edema, no cyanosis.] Neurological Exam: [No focal neurologic deficit.] Results - Laboratory Findings CBC and BMP: 01/17/17 05:43 01/17/17 05:43 PT/INR, D-dimer PT 12.3 sec (9.0-12.0) H 01/16/17 16:45 INR 1.2 (<1.1) 01/16/17 16:45 Abnormal lab findings: Abnormal Labs 01/16/17 01/16/17 01/16/17 16:45 16:45 16:45 Hgb 11.0 L MCHC RDW 16.4 H Plt Count 479 H Neutrophils # 8.7 H Lymphocytes # PT Sodium Potassium 5.2 H Carbon Dioxide 34 H BUN 40 H Creatinine Glucose 148 H POC Glucose (mg/dL) Hemoglobin A1c AST 7173 H ALT 4310 H Alkaline Phosphatase 145 H CK-MB (CK-2) 2.7 H* Troponin I 0.245 H* Total Protein 5.9 L Albumin 3.3 L 01/16/17 01/16/17 01/16/17 16:45 16:45 21:35 Hgb MCHC RDW Plt Count Neutrophils # Lymphocytes # PT 12.3 H Sodium Potassium Carbon Dioxide BUN Creatinine Glucose POC Glucose (mg/dL) 200 H Hemoglobin A1c 6.8 H AST ALT Alkaline Phosphatase CK-MB (CK-2) Troponin I Total Protein Albumin 01/17/17 01/17/17 01/17/17 05:43 05:43 06:24 Hgb 10.6 L MCHC 29.7 L RDW 16.4 H Plt Count Neutrophils # Lymphocytes # 0.5 L PT Sodium 146 H Potassium Carbon Dioxide 38 H BUN 23 H Creatinine 0.34 L Glucose 146 H POC Glucose (mg/dL) 142 H Hemoglobin A1c AST 4635 H ALT 3952 H Alkaline Phosphatase 157 H CK-MB (CK-2) Troponin I Total Protein 5.9 L Albumin 3.1 L 01/17/17 11:41 Hgb MCHC RDW Plt Count Neutrophils # Lymphocytes # PT Sodium Potassium Carbon Dioxide BUN Creatinine Glucose POC Glucose (mg/dL) 143 H Hemoglobin A1c AST ALT Alkaline Phosphatase CK-MB (CK-2) Troponin I Total Protein Albumin - Diagnostic Findings Chest x-ray: image reviewed (Initial chest x-ray was suggestive of fluid overload, however the follow-up chest x-ray from this morning is relatively clear showing mostly emphysema no evidence of active disease.) Assessment and Plan Plan: Impression: Acute hypoxic and hypercapnic respiratory failure secondary to severe end-stage COPD exacerbation. Baseline FEV1 is 27%. 2 elevated liver enzymes with negative hepatitis screen, workup is pending. Ultrasound is unremarkable. 3 cachectic/catabolic state secondary to advanced COPD 4 nicotine addiction/smoking/tobacco dependence syndrome hence the patient was counseled again and again regarding smoking cessation. 5 history of cervical cancer 6 history of peptic ulcer disease 7 history of MRSA pneumonia. Recommendation: Agree with the present treatment plan including BiPAP, bronchodilators, steroids, antibiotics, monitor liver enzymes, they seem to be improving even in the last 12 hours. We'll continue to follow prognosis is definitely poor and guarded. Time with Patient: Greater than 30
--- NOTE | 2017-01-17 12:47 | HP ---
DATE OF ADMISSION: CHIEF COMPLAINT: Shortness of breath. HISTORY OF PRESENT ILLNESS: This 46-year-old woman with past medical history of asthma, COPD, history of chest pain, hyperlipidemia, history of MRSA, history of cholecystectomy and chronic respiratory failure being followed Dr. Italo John in the outpatient setting was recently admitted with COPD acute exacerbation and patient improved significantly. Patient went home. Currently the patient is again readmitted with increase in shortness of breath and cough, respiratory distress and congestion. Patient is extremely short of breath. The patient continues t otherwise smoke apparently. In the ER, the pulse was found to be 70% on 6-L nasal cannula. Patient is tachypneic and tachycardic. The patient was started on BiPAP 100%. The patient also had change in mental status. Patient was admitted for further evaluation and treatment. Ultrasound of the abdomen was done for suspicion of cholecystitis. Given the sonographic evidence and McBurney sign present, the gallbladder was thought to be contracted at this time. Currently, the patient is drowsy and unable to give any pertinent history. Patient is on BiPAP. Most of the history was taken from my discussion with staff and review of the chart at this time. PAST MEDICAL HISTORY: History of COPD, history of asthma, history of chest pain, history of hyperlipidemia, history of degenerative joint disease, history of continued ongoing nicotine dependence, history of MRSA, section. Medications prior to admission include the home medications are: 1. Ecotrin 325 mg q.h.s. 2. Ventolin 2.5 q.i.d. and p.r.n. 3. Xanax 0.25 t.i.d. p.r.n. 4. Wellbutrin SR 150 mg p.o. b.i.d. 5. Akhil-24 200 mg p.o. daily. 6. Lyrica 100 mg p.o. b.i.d. 7. Prilosec 40 mg p.o. b.i.d. 8. Habitrol 14 daily. 9. Multivitamins 1 p.o. daily. 10. Magnesium oxide 400 mg q.h.s. 11. Imodium 2 mg q.i.d. p.r.n. 12. Atrovent 2 puffs q.i.d. 13. [place] 10 mg t.i.d. p.r.n. 14. Symbicort 160/4.5, 2 puffs b.i.d. 15. Trazodone 300 mg q.h.s. 16. Risperdal 3 mg q.h.s. 17. Requip 0.5 mg q.6. 18. Prednisone 20 mg daily. ALLERGIES: ABILIFY, HONEY, METHADONE, NAPROXEN, METHYLSULFATE, CODEINE, KETOROLAC, LYRICA, ULTRAM, TROMETHAMINE. FAMILY HISTORY: History of alcoholism in the family. SOCIAL HISTORY: Continued ongoing nicotine dependence. History of THC. Review of systems could not be taken. The patient is drowsy at this time. PHYSICAL EXAMINATION: Pulse is 104, blood pressure 115/75, respirations 24, temperature 97.4, pulse ox improved to 99% on BiPAP. BiPAP settings are noted. HEENT: Conjunctivae normal. Oral mucosa moist. NECK: Accessory muscles of respiration are acting. No carotid bruit. No thyroid enlargement. No jugular venous distention. CARDIOVASCULAR: S1 and S2. No S3, no S4. RESPIRATORY: Breath sounds diminished at the bases. Bilateral scattered rhonchi and crackles. Breathing efforts are markedly increased. ABDOMEN: Soft, nontender. No mass palpable. LEGS: No edema, no swelling. NERVOUS SYSTEM: Higher function as mentioned. Moves all four limbs. Otherwise patient unable to complete a full neurological exam. SKIN: No ulcer, rash or bleeding. LYMPHATIC: No lymphadenopathy in the neck, axillae or groin. JOINTS: No active deforming arthropathy. LABS: WBC 10.3, hemoglobin 11, platelets 479, INR 1.2, sodium 140, potassium 5.2 and AST 717, ALT 4310. Troponin 0.245. ASSESSMENT: 1. Chronic obstructive pulmonary disease acute exacerbation with acute purulent tracheobronchitis with acute hypoxic hypercarbic respiratory failure. 2. Change in mental status, metabolic encephalopathy multifactorial. 3. Possible acute hepatitis of undetermined etiology. 4. Troponin 0.24, indeterminate. 5. Hypoalbuminemia with mild to moderate protein calorie malnutrition. 6. Hyperkalemia. 7. Thrombocytosis, mild. 8. Continued ongoing nicotine dependence. 9. History of asthma, chronic obstructive pulmonary disease. 10. History of gastroesophageal reflux disease. 11. History of degenerative joint disease. 12. History of chronic hypoxic respiratory failure on 5-L nasal cannula oxygen. 13. History of cervical and lumbar spondylosis. 14. Chronic migraines. 15. History of peptic ulcer disease. 16. History of degenerative joint disease. 17. History of severe protein calorie malnutrition with body mass index is 17.5. 18. History of methicillin-resistant Staphylococcus aureus. 19. History of cholecystectomy. 20. History of anxiety, bipolar and depression, not otherwise specified. 21. Gait dysfunction. 22. FULL CODE. 23. Generalized medical debility. RECOMMENDATIONS AND DISCUSSION: In this is 46-year-old woman who presented with multiple complex medical issues, will monitor the patient closely. Continue with current medications, continue with symptomatic treatment. I would recommend intensive bronchodilator treatment, empiric antibiotics, cultures. Consult Dr. Trujillo. Prognosis guarded because of multiple complex medical issues. Further recommendations to follow. The code status will also be readdressed by the family as well. Prognosis guarded. MTDD
[2017-01-17] MEDS: SODIUM CHLORIDE 0.9% 1,000 ML IV SCH (15:22)
[2017-01-17 17:12] LABS: Glucose,Whole Blood 141 mg/dL (75-99)
[2017-01-17] MEDS: HYDROcodone/APAP 10-325MG 1 EACH TAB PO PRN (17:18)
[2017-01-17 20:32] LABS: Glucose,Whole Blood 274 mg/dL (75-99)
[2017-01-17] MEDS: MAGNESIUM OXIDE 400 MG TAB PO SCH (21:00)
[2017-01-17] MEDS: ASPIRIN 325 MG TAB PO SCH (21:00)
[2017-01-17] MEDS: risperiDONE 1 MG TAB PO SCH (21:01)
[2017-01-17] MEDS: traZODone HCL 100 MG TAB PO SCH (21:01)
[2017-01-18] MEDS: VANCOMYCIN 1,000 MG in SODIUM CHLORIDE 0.9% 250 ML IVPB SCH ×4 (03:00→20:25)
[2017-01-18] MEDS: HYDROcodone/APAP 10-325MG 1 EACH TAB PO PRN ×2 (03:29→20:24)
[2017-01-18] MEDS: IPRATROPIUM-ALBUTEROL 3 ML NEB INHALATION PRN (03:46)
[2017-01-18 06:12] LABS: Glucose,Whole Blood 168 mg/dL (75-99)
[2017-01-18] MEDS: methylPREDNISolone SOD SUCCI 125 MG/2 ML VIAL IV SCH ×4 (06:27→23:35)
[2017-01-18] MEDS: INSULIN LISPRO (humaLOG) 300 UNIT/3 ML VIAL SQ SCH ×4 (06:30→22:18)
[2017-01-18] MEDS ORDERED: VANCOMYCIN TROUGH DUE 1 EACH MISC MISCELLANE ONE (07:00)
[2017-01-18] MEDS: PIPERACILLIN-TAZOBACTAM 3.375 GM in DEXTROSE/WATER 1 50ML.BAG IVPB SCH ×3 (07:34→23:34)
[2017-01-18] MEDS: ENOXAPARIN 40 MG/0.4 ML SYRINGE SQ SCH (07:35)
[2017-01-18] MEDS: PANTOPRAZOLE 40 MG TABLET PO SCH (07:36)
[2017-01-18] MEDS: MULTIVITAMINS, THERA 1 EACH TAB PO SCH (07:36)
[2017-01-18] MEDS: buPROPion SR 150 MG TABLET.ER PO SCH ×2 (07:36→22:17)
[2017-01-18] MEDS: THEOPHYLLINE 24 HOUR 400 MG CAP.ER.24H PO SCH (07:37)
[2017-01-18 07:39] LABS: Anisocytosis Slight; Basophils % (A) 0 %; CH 25.9; CHCM 29.4; Eosinophils % (A) 0 %; HCT 36.2 % (34.0-46.0); HDW 2.96; HGB 10.8 gm/dL (11.4-16.0); Hypochromasia Marked; Luc # (Auto) 0.09; Luc % (Auto) 1; Lymphocytes # (A) 0.7 k/uL (1.0-4.8); Lymphocytes % (A) 7 %; MCH 26.4 pg (25.0-35.0); MCHC 29.9 g/dL (31.0-37.0); MCV 88.3 fL (80.0-100.0); Mean Platelet Volume 7.1; Monocytes # (A) 0.3 k/uL (0-1.0); Monocytes % (A) 3 %; Neutrophils # (A) 8.6 k/uL (1.3-7.7); Neutrophils % (A) 89 %; RBC 4.09 m/uL (3.80-5.40); RDW 16.6 % (11.5-15.5); WBC 9.7 k/uL (3.8-10.6); WBC (Perox) 9.54
[2017-01-18] MEDS: PREGABALIN 100 MG CAP PO SCH ×2 (07:39→22:17)
[2017-01-18 07:52] LABS: Alkaline Phosphatase 135 U/L (38-126); Anion Gap 3 mmol/L; Blood Urea Nitrogen 26 mg/dL (7-17); Calcium 8.9 mg/dL (8.4-10.2); Carbon Dioxide 36 mmol/L (22-30); Chloride 105 mmol/L (98-107); Glucose 164 mg/dL (74-99); Non-African American GFR(MDRD) >60 (>60 ml/min/1.73 sqM); Potassium 4.3 mmol/L (3.5-5.1); Sodium 144 mmol/L (137-145); Total Bilirubin 0.5 mg/dL (0.2-1.3)
[2017-01-18] MEDS: BUDESONIDE 1 MG/2 ML NEBU INHALATION SCH ×2 (08:15→19:59)
[2017-01-18] MEDS: FORMOTEROL FUMARATE 20 MCG/2 ML NEBU INHALATION SCH ×2 (08:15→19:58)
[2017-01-18] MEDS: IPRATROPIUM-ALBUTEROL 3 ML NEB INHALATION SCH ×4 (08:16→19:58)
--- NOTE | 2017-01-18 08:21 | PN ---
DATE OF SERVICE: 01/17/2017 I am covering for Dr. John. This 46-year-old woman was admitted with COPD acute respiratory also features of acute respiratory failure. The patient is on BiPAP. Dr. Trujillo is following the patient closely. BiPAP settings are noted, of 5 and 55% FiO2. The patient's baseline FEV1 is 27%. The patient also has elevated LFTs of hepatitis of undetermined etiology. Ultrasound is unremarkable at this time. There is no evidence of balta pneumonia at this time. The patient is on broad-spectrum IV antibiotics. Cardiology has also seen the patient because of indeterminate troponin of 0.245. PAST MEDICAL HISTORY: Reviewed. REVIEW OF SYSTEMS: Could not be taken. The patient is on BiPAP and the patient is slightly drowsy too. CURRENT MEDICATIONS: 1. [place] 10 mg t.i.d. p.r.n. 2. DuoNeb q.i.d. and p.r.n. 3. Xanax 0.25 t.i.d. 4. Aspirin 325 mg. 5. Pulmicort 1 mg b.i.d. 6. Wellbutrin SR. 7. Lovenox 40 mg subcu daily. 8. Perforomist 20 b.i.d. 9. Humalog. 10. Imodium. 11. Magnesium oxide. 12. Solu-Medrol 60 mg IV q.6. 13. Vancomycin. 14. Protonix. 15. Zosyn IV. 16. Risperdal. 17. Requip. 18. Akhil-24. 19. Desyrel. PHYSICAL EXAMINATION: The patient is drowsy and stuporous. The patient is on BiPAP. Pulse is 94, blood pressure 135/84, respirations 22, temperature 97.9, pulse ox 98% on BiPAP, settings are noted. HEENT: Conjunctivae normal. Oral mucosa moist. NECK: Accessory muscles of respiration acting. CARDIOVASCULAR: S1 and S2, muffled. No S3, no S4. RESPIRATORY: Breath sounds diminished at the bases. Bilateral scattered rhonchi and crackles. Expiratory wheezing also present. ABDOMEN: Soft, nontender. LEGS: No edema, no swelling. NERVOUS SYSTEM: Diffusely weak. LABS: WBC 8.3, hemoglobin 10.6. Sodium 146, potassium 4.4. The AST is 4635 and ALT 3952, diminishing trends. Hepatitis panel is negative. ASSESSMENT: 1. Chronic obstructive pulmonary disease, acute exacerbation, with acute purulent tracheobronchitis with acute hypoxic hypercarbic respiratory failure. 2. Change in mental status, metabolic encephalopathy, multifactorial, possibly secondary from hypoxia and hypercarbia. 3. Possible acute hepatitis of undetermined etiology, improving. 4. Troponin 0.245, indeterminate. 5. Hypoalbuminemia with mild to moderate protein calorie malnutrition. 6. Hyperkalemia. 7. Thrombocytosis mild. 8. Continued, ongoing nicotine dependence. 9. History of asthma, chronic obstructive pulmonary disease. 10. History of gastroesophageal reflux disease. 11. History of degenerative joint disease. 12. History of chronic hypoxic respiratory failure on 5 L nasal cannula. 13. History of cervical and lumbar spondylosis. 14. Chronic migraines. 15. History of peptic ulcer disease. 16. History of degenerative joint disease. 17. History of severe protein calorie malnutrition with body mass index of 17.5. 18. History of methicillin-resistant Staphylococcus aureus. 19. History of cholecystectomy. 20. Anxiety, bipolar depression, not otherwise specified. 21. Gait dysfunction. 22. Generalized medical debility. 23. FULL CODE. RECOMMENDATIONS AND DISCUSSION: Recommend to continue the current medications. Continue with monitoring and symptomatic treatment. Otherwise at this time I recommend to continue the bronchodilators, IV steroids. Continue with empiric antibiotics. Dr. Trujillo's input appreciated. Monitor LFTs. Continue with BiPAP. Prognosis is extremely guarded because of multiple complex medical issues. Further recommendations to follow. MTDD
[2017-01-18 08:41] LABS: AST 1508 U/L (14-36)
[2017-01-18 08:42] LABS: ALT 3229 U/L (9-52)
[2017-01-18] MEDS: NICOTINE 21MG/24HR PATCH TRANSDERM SCH (09:13)
--- NOTE | 2017-01-18 10:08 | ECHOF ---
Referral Reason:sob MEASUREMENTS -------- HEIGHT: 162.6 cm WEIGHT: 46.7 kg BP: 130/80 IVSd: 1.1 cm (0.6 - 1.1) LVIDd: 3.3 cm (3.9 - 5.3) LVPWd: 1.1 cm (0.6 - 1.1) IVSs: 1.6 cm LVIDs: 2.4 cm LVPWs: 1.7 cm LAESV Index (A-L): 10.77 ml/m Ao Diam: 3.0 cm (2.0 - 3.7) AV Cusp: 1.2 cm (1.5 - 2.6) LA Diam: 3.0 cm (2.7 - 3.8) MV EXCURSION: 8.807 mm (> 18.000) MV EF SLOPE: 93 mm/s (70 - 150) MV E Chas: 0.83 m/s MV DecT: 219 ms MV A Chas: 0.93 m/s MV E/A Ratio: 0.88 RAP: 15.00 mmHg RVSP: 27.01 mmHg FINDINGS -------- Sinus rhythm. This was a technically adequate study. Left ventricular wall thickness is normal. Overall left ventricular systolic function is normal with, an EF between 55 - 60 %. The right ventricle is normal in size and function. Normal LA size by volume 22+/-6 ml/m2. The right atrium is normal in size. Aortic valve is trileaflet and is mildly thickened. There is no evidence of aortic regurgitation. There is no evidence of aortic stenosis. The mitral valve leaflets are mildly thickened. There is trace to mild mitral regurgitation. Trace tricuspid regurgitation present. There is no evidence of pulmonary hypertension. The right ventricular systolic pressure, as measured by Doppler, is 27.01mmHg. The pulmonic valve was not well visualized. The aortic root size is normal. The inferior vena cava is dilated with no significant inspiratory collapse which is consistent estimated right atrial pressure of >20 mmHg. The pericardium is normal. There is no pericardial effusion. CONCLUSIONS -------- 1. Sinus rhythm. 2. The pulmonic valve was not well visualized. 3. The aortic root size is normal. 4. The inferior vena cava is dilated with no significant inspiratory collapse which is consistent estimated right atrial pressure of >20 mmHg. 5. There is no pericardial effusion. 6. Overall left ventricular systolic function is normal with, an EF between 55 - 60 %. 7. Normal LA size by volume 22+/-6 ml/m2. 8. Aortic valve is trileaflet and is mildly thickened. 9. The mitral valve leaflets are mildly thickened. 10. There is trace to mild mitral regurgitation. 11. Trace tricuspid regurgitation present. 12. There is no evidence of pulmonary hypertension. 13. The right ventricular systolic pressure, as measured by Doppler, is 27.01mmHg. [employer]PER[employer]ENT: Laurent Espinoza RDCS
[2017-01-18 12:21] LABS: Glucose,Whole Blood 238 mg/dL (75-99)
--- NOTE | 2017-01-18 14:07 | P.PN ---
Subjective Principal diagnosis: Shortness of breath This is a 46-year-old female with history of severe end-stage COPD, oxygen dependent, hyperlipidemia, who presented to the hospital with symptoms of progressively worsening shortness of breath. Cardiology consultation was initially requested because of hypertension. Dr. Watson and seen the patient in consultation and felt that the appropriate cuff size had not been used. Since then a documented blood pressures have been 110-120 range. Echocardiogram with Doppler study was performed which revealed an ejection fraction of 55-60%. Overall patient states her breathing is improving. Objective - Vital Signs Vital signs: Vital Signs Temp 98.2 F 01/18/17 08:00 Pulse 96 01/18/17 12:05 Resp 22 01/18/17 08:00 BP 132/86 01/18/17 08:00 Pulse Ox 95 01/18/17 08:00 Intake & Output 01/17/17 01/18/17 01/18/17 18:59 06:59 18:59 Intake Total 1025 570 Output Total 1200 100 Balance -175 470 Weight 47 kg Intake: IV 300 150 Sodium Chloride 0.9% 1, 300 150 000 ml @ 50 mls/hr IV . Q20H [facility] Rx#:[id number] Intake, IV Titration 350 300 Amount Piperacillin-Tazobactam 3 100 50 .375 gm In Dextrose/Water 1 50ml.bag @ 12.5 mls/hr IVPB Q8HR [facility] Rx#: [id number] Vancomycin 1,000 mg In 250 250 Sodium Chloride 0.9% 250 ml @ 125 mls/hr IVPB Q6H [place] Rx#:[id number] Oral 375 120 Output: Urine 1200 100 Other: Voiding Method Bedpan Bedpan Bedpan # Voids 1 1 1 - Exam PHYSICAL EXAMINATION: HEENT: Head is atraumatic, normocephalic. Pupils equal, round. Neck is supple. There is no elevated jugular venous pressure. HEART EXAMINATION: Heart S1, S2 normal. No murmur or gallop heard. CHEST EXAMINATION: Lungs reveal diffuse crackles with decreased air exchange and wheezing throughout ABDOMEN: Soft, nontender. Bowel sounds are heard. No organomegaly noted. EXTREMITIES: 2+ peripheral pulses with no evidence of peripheral edema and no calf tenderness noted. NEUROLOGIC patient is awake, alert and oriented -3. . - Labs CBC & Chem 7: 01/18/17 07:23 01/18/17 07:23 Labs: Abnormal Lab Results - Last 24 Hours (Table) 01/17/17 01/17/17 01/18/17 Range/Units 16:58 20:30 06:07 Hgb (11.4-16.0) gm/dL MCHC (31.0-37.0) g/dL RDW (11.5-15.5) % Neutrophils # (1.3-7.7) k/uL Lymphocytes # (1.0-4.8) k/uL Carbon Dioxide (22-30) mmol/L BUN (7-17) mg/dL Creatinine (0.52-1.04) mg/dL Glucose (74-99) mg/dL POC Glucose (mg/dL) 141 H 274 H 168 H (75-99) mg/dL AST (14-36) U/L ALT (9-52) U/L Alkaline Phosphatase (38-126) U/L Total Protein (6.3-8.2) g/dL Albumin (3.5-5.0) g/dL 01/18/17 01/18/17 01/18/17 Range/Units 07:23 07:23 12:01 Hgb 10.8 L (11.4-16.0) gm/dL MCHC 29.9 L (31.0-37.0) g/dL RDW 16.6 H (11.5-15.5) % Neutrophils # 8.6 H (1.3-7.7) k/uL Lymphocytes # 0.7 L (1.0-4.8) k/uL Carbon Dioxide 36 H (22-30) mmol/L BUN 26 H (7-17) mg/dL Creatinine 0.35 L (0.52-1.04) mg/dL Glucose 164 H (74-99) mg/dL POC Glucose (mg/dL) 238 H (75-99) mg/dL AST 1508 H (14-36) U/L ALT 3229 H (9-52) U/L Alkaline Phosphatase 135 H (38-126) U/L Total Protein 6.0 L (6.3-8.2) g/dL Albumin 3.1 L (3.5-5.0) g/dL Microbiology - Last 24 Hours (Table) 01/16/17 03:28 Urine Culture - Preliminary Urine,Voided Gram Neg Bacilli 01/16/17 16:45 Blood Culture - Preliminary Blood No Growth after 24 hours Assessment and Plan (1) COPD exacerbation Status: Acute (2) Nicotine dependence Status: Acute (3) PUD (peptic ulcer disease) Status: Acute Plan: From cardiology's perspective, we'll follow this patient with you now on an as- needed basis only, please don't hesitate to call with any questions. She may be able to be transferred to a [facility] unit without telemetry from our perspective. DNP note has been reviewed, I agree with a documented findings and plan of care. Patient was seen and examined.
[2017-01-18 15:00] VITALS: BMI 17.7
[2017-01-18] MEDS: SODIUM CHLORIDE 0.9% 1,000 ML IV SCH (15:03)
--- NOTE | 2017-01-18 15:46 | PN ---
This is a 46-year-old female with a history of stage IV COPD. She has frequent admissions to the hospital for COPD exacerbations. Unfortunately, continues to smoke. Becoming more and more BiPAP dependent. She was seen by my partner in consultation. Admitted with a diagnosis of COPD exacerbation. Her baseline FEV1 is 27% of predicted. In addition, she has a history of profound anorexia/cachexia, ongoing tobacco use, cervical cancer, peptic ulcer disease and a previous history of MRSA pneumonia. Currently on BiPAP therapy as we speak. Doing a bit better. Current vital signs are reviewed. Temperature is 98.2 heart rate 75, respiratory rate 22, blood pressure 132/86, mean 101, 50% BiPAP saturations are 95%. Appears mildly tachypneic and dyspneic. Looks a bit at baseline. HEENT examination is grossly unremarkable. Mucous membranes are moist. Neck is supple. Full range of motion. No adenopathy. Neck veins are flat. Cardiovascular examination reveals regular rhythm and rate. S1, S2 normal. No S3, S4, murmur. Lungs reveal coarse inspiratory and expiratory rhonchi and wheezes. Breath sounds are diminished. There is prolongation. No crackles. Abdomen is soft. Bowel sounds are heard. Extremities are intact. Skin without rashes. She does have multiple tattoos and a few areas of ecchymoses. Labs are reviewed. White count 9.7, hemoglobin 10.8, hematocrit 36.2, platelet count 338,000. Sodium, potassium and chloride normal. CO2 of 36, BUN and creatinine were 26 and 0.35. Liver enzymes are 1508 and 3229 for the AST, ALT respectively. Chest x-ray shows no acute cardiopulmonary disease. Medications are reviewed. ASSESSMENT: 1. Acute hypoxemic and hypercapnic respiratory failure. 2. Stage IV/Gold stage IV chronic obstructive pulmonary disease. 3. Elevated liver enzymes currently with hepatitis serology pending. 4. Anorexia cachexia syndrome. 5. Ongoing tobacco use and nicotine addiction. 6. History of cervical cancer. 7. Peptic ulcer disease. 8. History of Methicillin-resistant Staphylococcus aureus pneumonia. PLAN: Will continue to follow. Prognosis is very poor. Medications are reviewed.
[2017-01-18 16:55] LABS: Glucose,Whole Blood 188 mg/dL (75-99)
[2017-01-18 21:08] LABS: Glucose,Whole Blood 198 mg/dL (75-99)
[2017-01-18] MEDS: MAGNESIUM OXIDE 400 MG TAB PO SCH (22:17)
[2017-01-18] MEDS: risperiDONE 1 MG TAB PO SCH (22:17)
[2017-01-18] MEDS: traZODone HCL 100 MG TAB PO SCH (22:18)
[2017-01-18] MEDS: ASPIRIN 325 MG TAB PO SCH (22:20)
--- NOTE | 2017-01-18 22:45 | PN ---
DATE OF SERVICE: 01/18/2017 I am covering for Dr. John. This 46-year-old woman who was admitted with COPD, acute exacerbation, as well as acute purulent tracheobronchitis, also had acute hypoxic hypercarbic respiratory failure. Patient is on BiPAP. Sensorium has improved slightly. Multiple consultants are following the patient closely. Two-D echo showed ejection fraction about 55% to 60%. Dr. Lino is following the patient closely as well as Cardiology. Patient has Gold stage IV COPD. Patient also has a history of ongoing nicotine dependence. Patient also had elevated LFTs; possibly hepatitis of undetermined origin at this time. Past medical history reviewed. Review of systems could not be taken; patient is using BiPAP and there is change in mental status also. Current medications are reviewed and include: 1. [place] 10 mg t.i.d. p.r.n. 2. DuoNeb q.i.d. and p.r.n. 3. Xanax 0.25 t.i.d. 4. Aspirin 325 mg at bedtime. 5. Pulmicort 1 mg b.i.d. 6. Wellbutrin SR 150 mg p.o. b.i.d. 7. Lovenox 40 mg subcutaneously daily. 8. Perforomist 20 mg b.i.d. 9. Humalog scale. 10. Imodium. 11. Magnesium oxide 400 mg nightly. 12. Solu-Medrol 60 IV q.6. 13. Multivitamin. 14. Habitrol 14 daily. 15. Protonix 40 mg daily. 16. Zosyn 3.75 IV q.8. 17. Lyrica. 18. Risperdal. 19. Requip. 20. Desyrel. 21. Akhil-24. 22. Vancomycin. Pharmacy to protocol. PHYSICAL EXAMINATION: Patient is stuporous. Patient is on BiPAP. BiPAP settings are noted. Pulse 82, blood pressure 124/70, respiration 21, temperature 98 degrees, pulse ox 98% on 55% BiPAP. HEENT: Conjunctivae normal. Oral mucosa moist. NECK: No jugular venous distention. No carotid bruit. No lymph node enlargement. Accessory muscles of respiration are acting. CARDIOVASCULAR SYSTEM: S1, S2 muffled. RESPIRATORY SYSTEM: Bilateral scattered rhonchi and expiratory wheezing and prolonged expiration also present. Chest emphysematous. ABDOMEN: Soft, non-tender. No mass palpable. LEGS: No edema. No swelling. NERVOUS SYSTEM: Higher functions as mentioned. Moves all 4 limbs. No focal motor or sensory deficit. LYMPHATICS: No lymph node palpable in neck, axilla or groin. SKIN: No ulcer, rash, bleeding. LABS: CBC within normal limits. Otherwise, BMP noted. AST is 1508. ALT is 3229. Alkaline phosphatase is 135. Albumin is 3.1. ASSESSMENT: 1. Chronic obstructive pulmonary disease, acute exacerbation, with acute purulent tracheobronchitis with acute hypoxic hypercarbic respiratory failure. 2. Change in mental status, metabolic encephalopathy, multifactorial, possibly secondary from hypoxia and hypercarbia. 3. Possible acute hepatitis of undetermined etiology, improving. 4. Troponin 0.245, indeterminate. 5. Hypoalbuminemia with mild to moderate protein-calorie malnutrition. 6. Hyperkalemia. 7. Thrombocytosis, mild. 8. Continued ongoing nicotine dependence. 9. History of asthma, chronic obstructive pulmonary disease. 10. History of gastroesophageal reflux disease. 11. History of degenerative joint disease. 12. History of chronic hypoxic respiratory failure, on 5 liters nasal cannula. 13. History of cervical and lumbar spondylosis. 14. History of chronic migraine. 15. History of peptic ulcer disease. 16. History of severe protein-calorie malnutrition with body mass index of 17.5. 17. History of methicillin-resistant Staphylococcus aureus. 18. History of cholecystectomy. 19. History of anxiety, bipolar depression not otherwise specified. 20. Gait dysfunction. 21. Generalized medical debility. 22. FULL CODE. RECOMMENDATIONS AND DISCUSSION: I recommend to continue with the current medications, continue with the monitoring, symptomatic treatment. Otherwise, at this time I would recommend continuing with the bronchodilators, continue steroids. Repeat labs. Prognosis guarded because of multiple complex medical issues BiPAP. Further recommendations to follow. MTDD
[2017-01-19] MEDS: VANCOMYCIN 1,000 MG in SODIUM CHLORIDE 0.9% 250 ML IVPB SCH ×4 (02:15→21:26)
[2017-01-19] MEDS: IPRATROPIUM-ALBUTEROL 3 ML NEB INHALATION PRN (03:49)
[2017-01-19] MEDS: HYDROcodone/APAP 10-325MG 1 EACH TAB PO PRN ×2 (04:35→21:38)
[2017-01-19] MEDS: methylPREDNISolone SOD SUCCI 125 MG/2 ML VIAL IV SCH (06:00)
[2017-01-19] MEDS: SODIUM CHLORIDE 0.9% 1,000 ML IV SCH (06:01)
[2017-01-19 06:12] LABS: Glucose,Whole Blood 187 mg/dL (75-99)
[2017-01-19 06:45] LABS: Anisocytosis Slight; Basophils % (A) 0 %; CH 25.7; CHCM 29.1; Eosinophils % (A) 0 %; HCT 34.6 % (34.0-46.0); HDW 2.94; HGB 10.2 gm/dL (11.4-16.0); Hypochromasia Marked; Luc # (Auto) 0.12; Luc % (Auto) 1; Lymphocytes # (A) 0.5 k/uL (1.0-4.8); Lymphocytes % (A) 6 %; MCH 26.1 pg (25.0-35.0); MCHC 29.5 g/dL (31.0-37.0); MCV 88.6 fL (80.0-100.0); Mean Platelet Volume 7.1; Monocytes # (A) 0.4 k/uL (0-1.0); Monocytes % (A) 4 %; Neutrophils # (A) 7.7 k/uL (1.3-7.7); Neutrophils % (A) 88 %; RBC 3.91 m/uL (3.80-5.40); RDW 16.4 % (11.5-15.5); WBC 8.7 k/uL (3.8-10.6); WBC (Perox) 9.42
[2017-01-19] MEDS: INSULIN LISPRO (humaLOG) 300 UNIT/3 ML VIAL SQ SCH ×4 (06:47→21:30)
[2017-01-19 07:00] LABS: AST 571 U/L (14-36); Alkaline Phosphatase 114 U/L (38-126); Anion Gap 2 mmol/L; Blood Urea Nitrogen 24 mg/dL (7-17); Calcium 8.6 mg/dL (8.4-10.2); Carbon Dioxide 37 mmol/L (22-30); Chloride 105 mmol/L (98-107); Glucose 176 mg/dL (74-99); Non-African American GFR(MDRD) >60 (>60 ml/min/1.73 sqM); Potassium 4.5 mmol/L (3.5-5.1); Sodium 144 mmol/L (137-145); Total Bilirubin 0.4 mg/dL (0.2-1.3); Total Protein 5.4 g/dL (6.3-8.2)
[2017-01-19] MEDS ORDERED: VANCOMYCIN TROUGH DUE 1 EACH MISC MISCELLANE ONE (07:00)
[2017-01-19 07:18] LABS: ALT 2168 U/L (9-52)
[2017-01-19] MEDS: BUDESONIDE 1 MG/2 ML NEBU INHALATION SCH ×2 (08:30→19:44)
[2017-01-19] MEDS: FORMOTEROL FUMARATE 20 MCG/2 ML NEBU INHALATION SCH ×2 (08:30→19:44)
[2017-01-19] MEDS: IPRATROPIUM-ALBUTEROL 3 ML NEB INHALATION SCH ×4 (08:30→19:44)
[2017-01-19] MEDS: PIPERACILLIN-TAZOBACTAM 3.375 GM in DEXTROSE/WATER 1 50ML.BAG IVPB SCH ×3 (10:04→21:29)
[2017-01-19] MEDS: buPROPion SR 150 MG TABLET.ER PO SCH ×2 (10:04→21:27)
[2017-01-19] MEDS: ENOXAPARIN 40 MG/0.4 ML SYRINGE SQ SCH (10:05)
[2017-01-19] MEDS: MULTIVITAMINS, THERA 1 EACH TAB PO SCH (10:05)
[2017-01-19] MEDS: PANTOPRAZOLE 40 MG TABLET PO SCH (10:05)
[2017-01-19] MEDS: THEOPHYLLINE 24 HOUR 400 MG CAP.ER.24H PO SCH (10:05)
[2017-01-19] MEDS: NICOTINE 21MG/24HR PATCH TRANSDERM SCH (10:09)
[2017-01-19 11:43] LABS: Glucose,Whole Blood 242 mg/dL (75-99)
[2017-01-19] MEDS: PREGABALIN 100 MG CAP PO SCH (12:13)
--- NOTE | 2017-01-19 12:18 | PN ---
This is a 46-year-old female well known to our service. She has a history of severe end-stage COPD. Her FEV1 is less than 30% of predicted. Anyway, we were able to provide her with AVAPS machine. The patient will be discharged eventually with that. She continues to smoke. She has multiple admissions to the hospital. We counseled her but she does not pay attention. She sabotages her care. 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 Doing marginally better today. CURRENT VITAL SIGNS: Temperature 96.9, heart rate 77, respiratory rate 21, blood pressure 119/82, mean 94. Saturations are 98% on 50% BiPAP. Appears mildly to moderately tachypneic and dyspneic. HEENT examination is grossly unremarkable. Mucous membranes are moist. There are no oral lesions. Neck is supple. Full range of motion. No adenopathy or thyromegaly. Cardiovascular examination shows regular rhythm and rate. Heart rate is 77. No murmur. Lungs reveal coarse rhonchi and wheezes. Breath sounds are severely diminished. Breath sounds are equal bilaterally. Abdomen is soft. Bowel sounds are heard. Extremities are intact. No cyanosis, clubbing, or edema. Labs are reviewed. White count 8.7, hemoglobin 10.2, hematocrit 34.6, platelet count is normal. Sodium, potassium normal. Chloride is 105, CO2 of 37, BUN and creatinine were 24 and 0.34. The CO2 of 37 is reflective of the fact that she is a CO2 retainer and has chronic bicarbonate retention to counter balance her hypercapnic respiratory failure. Her ALT is down to 2168. AST is down to 571. Microbiology showed evidence of E. coli in the urine. No recent chest x-ray. ASSESSMENT: 1. Acute hypoxemic and hypercapnic respiratory failure. 2. Stage IV/Gold stage IV, chronic obstructive pulmonary disease with features primarily of emphysema. 3. Elevated liver enzymes, consistent either with shock liver and/or hepatitis. 4. Anorexia/cachexia syndrome. 5. Ongoing tobacco use and nicotine addiction. 6. History of cervical cancer. 7. Peptic ulcer disease. 8. Escherichia coli urinary tract infection. 9. History of methicillin-resistant Staphylococcus aureus pneumonia. PLAN: Medications are reviewed. Her overall prognosis is poor. Was able to stick her an AVAPS machine through [facility]. She could be discharged eventually on that either to rehab or home. Her overall prognosis was poor. I would never recommend intubation and mechanical ventilation for this patient. CODE STATUS needs to be addressed. Will continue to follow. Medications are reviewed.
[2017-01-19 17:07] LABS: Glucose,Whole Blood 145 mg/dL (75-99)
--- NOTE | 2017-01-19 20:48 | PN ---
HOSPITAL COURSE AND SUBJECTIVE: DATA: This is a 46-year-old female with end-stage COPD. She comes into the hospital with difficulty in breathing. She was noted to be hypercapnic and was started on BiPAP therapy and steroids and breathing treatments. Patient's initial chest x-ray does not appear to show a pneumonic infiltrate. Today patient is seen at bedside, was noted to be on non-rebreather, on 100% FiO2. States her breathing is improved. Complains of pain during her breathing. Denies significant sputum production. No fevers, nausea, vomiting or diarrhea is reported. OBJECTIVE DATA: VITALS: Temperature 97.8, heart rate 90, blood pressure 136/81. Saturating 93% on non-rebreather. GENERAL APPEARANCE: Cachectic. Does not appear to be in distress. LUNGS: Poor air movement; however, no significant wheezing is noted. No rhonchi or crackles. HEART: S1, S2 heard. Regular rate and rhythm. No murmurs appreciated. ABDOMEN: Soft, nontender. No organomegaly. LOWER EXTREMITIES: No significant edema noted. NEURO: No focal motor or sensory deficits noted. Laboratory data include hemoglobin 10.2, hematocrit 34.6, platelets of 238; sodium 144, potassium 4.5, chloride 105, bicarb 37; BUN 24, creatinine 0.30. Glucose levels have been between 145 and 242. ALT is 2168. ASSESSMENT AND PLAN: 1. Acute on chronic hypoxic hypercapnic respiratory failure, likely secondary to an acute exacerbation of chronic obstructive pulmonary disease with tracheobronchitis that is acute. 2. Acute metabolic encephalopathy due to hypercapnia, which is improved. 3. Acute hepatitis of unknown etiology as well as episodes of hypotension, as there is some degree of troponin leak that is noted as well. 4. Severe protein-calorie malnutrition due to the physical exam finding of bitemporal muscle loss (correction from the previous note). 5. Thrombocytosis. 6. History of peptic ulcer disease. 7. Degenerative disc disease. 8. History of cervical cancer. 9. History of anxiety. PLAN: Continue ongoing care. Patient's steroids have been tapered. Continue HCAP antibiotic coverage for another one day. Will trend the liver enzymes tomorrow. Patient appears to be stable and is able to be titrated off the supplemental oxygen to her baseline. Will consider a discharge plan in the next 48 hours. Patient is critical ill. Did review the finisher machine's recommendations, which appear to be appropriate, including not recommending potential intubation, as patient would not come off the ventilator. Patient is critical ill; however, her CODE STATUS appears to be FULL CODE from previous discussion.
[2017-01-19 20:59] LABS: Glucose,Whole Blood 161 mg/dL (75-99)
[2017-01-19] MEDS: ASPIRIN 325 MG TAB PO SCH (21:26)
[2017-01-19] MEDS: traZODone HCL 100 MG TAB PO SCH (21:26)
[2017-01-19] MEDS: risperiDONE 1 MG TAB PO SCH (21:28)
[2017-01-19] MEDS: MAGNESIUM OXIDE 400 MG TAB PO SCH (21:28)
[2017-01-20] MEDS: IPRATROPIUM-ALBUTEROL 3 ML NEB INHALATION PRN (03:50)
[2017-01-20] MEDS: PREGABALIN 100 MG CAP PO SCH ×2 (05:23→08:31)
[2017-01-20 05:59] LABS: Glucose,Whole Blood 91 mg/dL (75-99)
[2017-01-20 06:24] LABS: Anisocytosis Slight; Basophils % (A) 0 %; CH 25.7; CHCM 29.6; Eosinophils # (A) 0.1 k/uL (0-0.7); Eosinophils % (A) 1 %; HCT 35.2 % (34.0-46.0); HDW 3.12; HGB 10.4 gm/dL (11.4-16.0); Hypochromasia Marked; Luc # (Auto) 0.21; Luc % (Auto) 2; Lymphocytes # (A) 1.9 k/uL (1.0-4.8); Lymphocytes % (A) 18 %; MCH 25.8 pg (25.0-35.0); MCHC 29.6 g/dL (31.0-37.0); Monocytes # (A) 0.6 k/uL (0-1.0); Monocytes % (A) 5 %; Neutrophils # (A) 7.7 k/uL (1.3-7.7); Neutrophils % (A) 74 %; RBC 4.04 m/uL (3.80-5.40); RDW 16.3 % (11.5-15.5); WBC 10.4 k/uL (3.8-10.6); WBC (Perox) 10.87
[2017-01-20 06:32] LABS: AST 226 U/L (14-36); Alkaline Phosphatase 102 U/L (38-126); Blood Urea Nitrogen 12 mg/dL (7-17); Calcium 8.9 mg/dL (8.4-10.2); Chloride 94 mmol/L (98-107); Glucose 86 mg/dL (74-99); Non-African American GFR(MDRD) >60 (>60 ml/min/1.73 sqM); Potassium 3.9 mmol/L (3.5-5.1); Sodium 141 mmol/L (137-145); Total Bilirubin 0.5 mg/dL (0.2-1.3); Total Protein 5.6 g/dL (6.3-8.2)
[2017-01-20 06:37] LABS: Anion Gap 3 mmol/L
[2017-01-20 06:42] LABS: Carbon Dioxide 44 mmol/L (22-30)
[2017-01-20 06:48] LABS: ALT 1547 U/L (9-52)
[2017-01-20] MEDS: INSULIN LISPRO (humaLOG) 300 UNIT/3 ML VIAL SQ SCH ×2 (07:01→12:07)
[2017-01-20] MEDS: SODIUM CHLORIDE 0.9% 1,000 ML IV SCH (07:02)
[2017-01-20] MEDS: VANCOMYCIN 1,000 MG in SODIUM CHLORIDE 0.9% 250 ML IVPB SCH ×3 (07:02→12:49)
[2017-01-20] MEDS: BUDESONIDE 1 MG/2 ML NEBU INHALATION SCH (08:07)
[2017-01-20] MEDS: FORMOTEROL FUMARATE 20 MCG/2 ML NEBU INHALATION SCH (08:07)
[2017-01-20] MEDS: IPRATROPIUM-ALBUTEROL 3 ML NEB INHALATION SCH ×3 (08:07→15:11)
[2017-01-20] MEDS: HYDROcodone/APAP 10-325MG 1 EACH TAB PO PRN ×2 (08:30→12:55)
[2017-01-20] MEDS: PANTOPRAZOLE 40 MG TABLET PO SCH (08:31)
[2017-01-20] MEDS: buPROPion SR 150 MG TABLET.ER PO SCH (08:31)
[2017-01-20] MEDS: THEOPHYLLINE 24 HOUR 400 MG CAP.ER.24H PO SCH (08:31)
[2017-01-20] MEDS: MULTIVITAMINS, THERA 1 EACH TAB PO SCH (08:32)
[2017-01-20] MEDS: PIPERACILLIN-TAZOBACTAM 3.375 GM in DEXTROSE/WATER 1 50ML.BAG IVPB SCH (08:34)
[2017-01-20] MEDS: NICOTINE 21MG/24HR PATCH TRANSDERM SCH (08:35)
[2017-01-20] MEDS: ENOXAPARIN 40 MG/0.4 ML SYRINGE SQ SCH (08:35)
[2017-01-20] MEDS ORDERED: predniSONE 20 MG TAB PO SCH (09:00)
[2017-01-20 11:46] LABS: Glucose,Whole Blood 148 mg/dL (75-99)
[2017-01-20 12:20] VITALS: BP 106/64; PULSE 86; RESP 20; TEMP 98
--- NOTE | 2017-01-20 12:24 | P.PN ---
Subjective Principal diagnosis: Acute exacerbation of chronic obstructive pulmonary disease. This is a 46-year-old white female with history of severe end-stage COPD, O2 dependent, prednisone dependent, patient is frequently in the hospital for acute COPD exacerbation, she is here on the average of at least once a month. In spite of her severe COPD, the patient continues to smoke, and I even doubt compliance with medications. Patient came into the ER last night with mostly few days history of increased shortness of breath, cough, wheezing, and congestion. Initial chest x-ray question possibility of interstitial edema, her pro BNP level was elevated, and her liver enzymes were elevated. Patient was diuresed, placed on BiPAP, and I was asked to see her on consultation. In the meantime she was placed back on her usual bronchodilators, antibiotics, and IV steroids. At the time of my evaluation, patient was resting comfortably on BiPAP. She is on IPAP of 14, EPAP of 5, and FiO2 of 55%. Patient denies any headaches no blurred vision no dizziness. No nausea no vomiting no abdominal pain no melena no hematemesis is no dysuria and no frequency no urgency. The patient was seen again today 01/20/2017 in follow-up on the selective care unit. She is currently awake and alert in no acute distress. She is off the BiPAP for now. She is maintaining O2 saturations in the low 90s on 10 L of high flow nasal cannula. She has been set up and educated regarding an AVAPS unit to take home with her. She is feeling nearly back to her baseline. No worsening shortness of breath at this time. She has a dry nonproductive cough. No chills or night sweats. Her urine was positive for E. coli. She is currently on Zosyn. Objective - Vital Signs Vital signs: Vital Signs Temp 98.3 F 01/20/17 08:00 Pulse 88 01/20/17 11:34 Resp 19 01/20/17 08:00 BP 126/74 01/20/17 08:00 Pulse Ox 97 01/20/17 08:00 Intake & Output 01/19/17 01/20/17 01/20/17 18:59 06:59 18:59 Intake Total 1760 300 650 Output Total 600 1500 450 Balance 1160 -1200 200 Weight 47.5 kg Intake: IV 800 50 Sodium Chloride 0.9% 1, 800 50 000 ml @ 50 mls/hr IV . Q20H [facility] Rx#:[id number] Intake, IV Titration 600 250 Amount Piperacillin-Tazobactam 3 100 .375 gm In Dextrose/Water 1 50ml.bag @ 12.5 mls/hr IVPB Q8HR [place] Rx#: [id number] Vancomycin 1,000 mg In 500 250 Sodium Chloride 0.9% 250 ml @ 125 mls/hr IVPB Q6H [place] Rx#:[id number] Oral 360 300 350 Output: Urine 600 1500 450 Other: Voiding Method Bedpan Bedpan Bedpan # Voids 120 10 # Bowel Movements 0 1 - Exam GENERAL EXAM: Frail, cachectic. Alert, comfortable in no apparent distress. HEAD: Normocephalic. EYES: Normal reaction of pupils, equal size. NOSE: Clear with pink turbinates. THROAT: No erythema or exudates. NECK: No masses, no JVD. CHEST: No chest wall deformity. LUNGS: Equal air entry with end expiratory wheeze. Diminished throughout.. CVS: S1 and S2 normal with no audible murmurs, regular rhythm. ABDOMEN: No hepatosplenomegaly, normal bowel sounds, no guarding or rigidity. SPINE: No scoliosis or deformity SKIN: No rashes CENTRAL NERVOUS SYSTEM: No focal deficits, tone is normal in all 4 extremities. Extremities: There is no peripheral edema. No clubbing, no cyanosis. Peripheral pulses are intact. - Labs CBC & Chem 7: 01/20/17 05:53 01/20/17 05:53 Labs: Abnormal Lab Results - Last 24 Hours (Table) 01/19/17 01/19/17 01/20/17 Range/Units 16:54 20:57 05:53 Hgb 10.4 L (11.4-16.0) gm/dL MCHC 29.6 L (31.0-37.0) g/dL RDW 16.3 H (11.5-15.5) % Chloride (98-107) mmol/L Carbon Dioxide (22-30) mmol/L Creatinine (0.52-1.04) mg/dL POC Glucose (mg/dL) 145 H 161 H (75-99) mg/dL AST (14-36) U/L ALT (9-52) U/L Total Protein (6.3-8.2) g/dL Albumin (3.5-5.0) g/dL 01/20/17 01/20/17 Range/Units 05:53 11:28 Hgb (11.4-16.0) gm/dL MCHC (31.0-37.0) g/dL RDW (11.5-15.5) % Chloride 94 L (98-107) mmol/L Carbon Dioxide 44 H* (22-30) mmol/L Creatinine 0.37 L (0.52-1.04) mg/dL POC Glucose (mg/dL) 148 H (75-99) mg/dL AST 226 H (14-36) U/L ALT 1547 H (9-52) U/L Total Protein 5.6 L (6.3-8.2) g/dL Albumin 2.9 L (3.5-5.0) g/dL Microbiology - Last 24 Hours (Table) 01/16/17 16:45 Blood Culture - Preliminary Blood No Growth after 72 hours 01/16/17 03:28 Urine Culture - Final Urine,Voided Escherichia coli Assessment and Plan Plan: Impression: 1 Acute hypoxic and hypercapnic respiratory failure secondary to severe end- stage COPD exacerbation. Baseline FEV1 is 27%. 2 elevated liver enzymes with negative hepatitis screen, workup is pending. Ultrasound is unremarkable. 3 cachectic/catabolic state secondary to advanced COPD 4 nicotine addiction/smoking/tobacco dependence syndrome hence the patient was counseled again and again regarding smoking cessation. 5 history of cervical cancer 6 history of peptic ulcer disease 7 history of MRSA pneumonia. Plan: The patient was seen and evaluated by Dr. Lino. She is again educated regarding the importance of complete smoking cessation, counseled between 3-10 minutes. A Habitrol patches in place. She has been set up with an average volume assured pressure support (AVAPS) device to take home with her to be used in the evenings and throughout the day as needed. Her overall prognosis remains quite poor and guarded based on the severity of her COPD and multiple comorbidities. We'll continue with her current medications. If home today she will follow-up in our office in 1 week's time. She has again been educated regarding the importance of medication and follow-up compliance as she has been noncompliant in the past. She verbalizes understanding and agreement.
--- NOTE | 2017-01-20 18:26 | P.DS ---
Providers Date of admission: 01/16/17 18:10 Attending physician: Torin Kaur Consults: 01/16/17 18:10 Consult Physician Urgent Consulting Provider: [place] Lino Consult Reason/Comments: known Do you want consulting provider notified?: Yes 01/16/17 20:16 Consult Physician Routine Consulting Provider: Brian Hoyt Consult Reason/Comments: elevated troponins 0.245 Do you want consulting provider notified?: Yes Primary care physician: Italo John Hospital Course: HOSPITAL COURSE This is a 46-year-old female with end-stage COPD. She comes into the hospital with difficulty in breathing. She was noted to be hypercapnic and was started on BiPAP therapy and steroids and breathing treatments. Patient's initial chest x-ray does not appear to show a pneumonic infiltrate. Today patient is seen at bedside, was noted to be on non-rebreather, on 100% FiO2. States her breathing is improved. Complains of pain during her breathing. Denies significant sputum production. No fevers, nausea, vomiting or diarrhea is reported. 01/20/17 states to be doing well no significant cough, fevers, chills, nausea, vomiting reported verbalizes to understand use of non invasive vent. GENERAL APPEARANCE: Cachectic. Does not appear to be in distress. LUNGS: Poor air movement; however, no significant wheezing is noted. No rhonchi or crackles. HEART: S1, S2 heard. Regular rate and rhythm. No murmurs appreciated. ABDOMEN: Soft, nontender. No organomegaly. LOWER EXTREMITIES: No significant edema noted. NEURO: No focal motor or sensory deficits noted. ASSESSMENT AND PLAN: 1. Acute on chronic hypoxic hypercapnic respiratory failure, likely secondary to an acute exacerbation of chronic obstructive pulmonary disease with tracheobronchitis that is acute. 2. Acute metabolic encephalopathy due to hypercapnia, which is improved. 3. Acute hepatitis of unknown etiology as well as episodes of hypotension, as there is some degree of troponin leak that is noted as well. 4. Severe protein-calorie malnutrition due to the physical exam finding of bitemporal muscle loss (correction from the previous note). 5. Thrombocytosis. 6. History of peptic ulcer disease. 7. Degenerative disc disease. 8. History of cervical cancer. 9. History of anxiety. continue breathing tx AVAPS machine is at bedside smoking cessation is discussed . Poor prognosis, as pt is non compliant continue prednisone 20mg Patient Condition at Discharge: Serious Plan - Discharge Summary New Discharge Prescriptions: New RX: Ipratropium-Albuterol Nebulize [Duoneb 0.5 mg-3 mg/3 ml Soln] 3 ml INHALATION RT-QID neb Continue RX: Omeprazole [PriLOSEC] 40 mg PO BID RX: Albuterol Inhaler [Ventolin Hfa Inhaler] 2 puff INHALATION RT-QID PRN PRN Reason: Shortness Of Breath RX: Multivitamins, Thera [Multivitamin (formulary)] 1 tab PO DAILY RX: risperiDONE 3 mg PO HS RX: traZODone HCL 300 mg PO HS RX: buPROPion SR [Wellbutrin SR] 150 mg PO BID RX: Aspirin [Aspirin EC] 325 mg PO HS RX: Ipratropium Salmon [Atrovent Hfa] 2 puff INHALATION RT-QID RX: HYDROcodone/APAP 10-325MG [Jacumba 10-325] 1 tab PO TID PRN PRN Reason: Pain RX: Budesonide-Formot 160-4.5 Mcg [Symbicort 160-4.5 Mcg Inhaler] 2 puff INHALATION RT-BID puff RX: rOPINIRole HCL 0.5 mg PO HS RX: ALPRAZolam [Xanax] 0.25 mg PO TID PRN #30 tab PRN Reason: Anxiety RX: Pregabalin [Lyrica] 100 mg PO BID RX: predniSONE 20 mg PO DAILY #0 RX: Magnesium Oxide [Mag-Ox] 400 mg PO HS RX: Loperamide [Imodium] 2 mg PO QID PRN #20 cap PRN Reason: Diarrhea RX: Nicotine 21Mg/24Hr Patch [Habitrol] 1 patch TRANSDERM DAILY #30 patch RX: Albuterol Nebulized [Ventolin Nebulized] 2.5 mg INHALATION RT-QID #0 RX: Theophylline 24 Hour [Akhil-24] 200 mg PO BID Discharge Medication List RX: Albuterol Inhaler [Ventolin Hfa Inhaler] 2 puff INHALATION RT-QID PRN [History] RX: Omeprazole [PriLOSEC] 40 mg PO BID 01/03/14 [History] RX: Multivitamins, Thera [Multivitamin (formulary)] 1 tab PO DAILY 12/24/14 [ History] RX: risperiDONE 3 mg PO HS 12/24/14 [History] RX: traZODone HCL 300 mg PO HS 12/24/14 [History] RX: buPROPion SR [Wellbutrin SR] 150 mg PO BID 04/30/15 [History] RX: Aspirin [Aspirin EC] 325 mg PO HS 03/24/16 [History] RX: Ipratropium Salmon [Atrovent Hfa] 2 puff INHALATION RT-QID 07/07/16 [ History] RX: HYDROcodone/APAP 10-325MG [Jacumba 10-325] 1 tab PO TID PRN 07/08/16 [History] RX: Budesonide-Formot 160-4.5 Mcg [Symbicort 160-4.5 Mcg Inhaler] 2 puff INHALATION RT-BID puff 07/13/16 [Rx] RX: rOPINIRole HCL 0.5 mg PO HS 07/18/16 [History] RX: ALPRAZolam [Xanax] 0.25 mg PO TID PRN #30 tab 09/13/16 [Rx] RX: Pregabalin [Lyrica] 100 mg PO BID 10/31/16 [History] RX: predniSONE 20 mg PO DAILY #0 11/26/16 [Rx] RX: Magnesium Oxide [Mag-Ox] 400 mg PO HS 12/26/16 [History] RX: Albuterol Nebulized [Ventolin Nebulized] 2.5 mg INHALATION RT-QID #0 [Rx] RX: Loperamide [Imodium] 2 mg PO QID PRN #20 cap 01/03/17 [Rx] RX: Nicotine 21Mg/24Hr Patch [Habitrol] 1 patch TRANSDERM DAILY #30 patch [Rx] RX: Theophylline 24 Hour [Akhil-24] 200 mg PO BID 01/16/17 [History] RX: Ipratropium-Albuterol Nebulize [Duoneb 0.5 mg-3 mg/3 ml Soln] 3 ml INHALATION RT-QID neb 01/20/17 [Rx] Follow up Appointment(s)/Referral(s): Italo John MD [Primary Care Provider] - 1-2 days Lake Lino DO [Doctor of Osteopathic Medicine] - 1 Week [facility], [NON-STAFF] - Activity/Diet/Wound Care/Special Instructions: Contact Juan Ms to arrange drop off and set up of AVAPS machine: [phone] Discharge Disposition: HOME SELF-CARE
--- NOTE | 2017-01-25 17:53 | CDI ---
In responding to this query, please exercise your independent professional judgment. The [facility] Coding Staff and Clinical Documentation Specialists appreciate your assistance in clarifying documentation, maintaining compliance with coding guidelines, accurately documenting patients condition and capturing severity of illness. The fact that a question is asked does not imply that any particular answer is desired or expected. Communication forms are a method of clarifying documentation and are not made part of the Legal Health Record. Thank you in advance for your clarification. Last Revision, June 2015 Pietro Estrada [address] [place] [address] Documentation Clarification Form Date: 01/25/2017 5:39:00 PM From: Nina Rowe, [facility] & Kathie Scanlon, Loan Review Officer & Kathie = [phone] Admit Date: 01/16/2017 6:10:00 PM Patient Name: Ameena Shaw Visit Number: [id number] Discharge Date: 01-20-17 Dr. Perry Lowery Please confirm if patient has a UTI-Urine Culture (voided specimen) collected on 01-16-17 shows E. Coli > 100,000. Resistant to ciprofloxacin. This was resulted on 01-19-17. Dr. [place] Lino states on 01-19-17 Progress Note "E. Coli urinary tract infection". CE Scott states on 01-20-17 Progress Note "Her urine was positive for E. Coli-currently on Zosyn". Other diagnoses: metabolic encephalopathy, AMS, non-compliance, cachetic, a/c hypoxic & hypercapneic respiratory failure, acute hepatitis, hypotension, severe protein calorie malnutrition, BMI 18, smoker, bipolar, history of PNA. Clinical Indicators: WBC: normal --It was 10.5 on 01-16-17 Urinalysis:---not done Urine Culture:--see above. Treatment: Antibiotics Azithromycin IV on 01-16-17. Zosyn IV on 01-17-17. Not home on antibiotics. Please document the condition that these clinical indicators signify, whether Present on Admission, and cause if known: UTI Due to Sepsis? If due to catheter, device or implant, please document Specify organism, if known Identify location of infection (if known) Bladder, Kidney, Urethra, etc.? Pyelonephritis Renal Stone Contaminated specimen Unable to determine Other Please document in your progress notes and discharge summary in order to capture severity of illness and risk of mortality. Include clinical findings that support your diagnosis. FYI: Press F11 to launch patient chart. Place X here if this finding has no clinical significance, is not applicable or if you are not able to provide any additional documentation. TRACIED
== END 2017-01-20 16:11 | disposition home health service (06) | DRG 190 ==
LOC: EC 16:00 → 6SEL 18:10
PROVIDERS: ADMIT Hospitalist; ATTEND Hospitalist
DX: J44.0 Chronic obstructive pulmonary disease with (acute) lower respiratory infection (principal); E43 Unspecified severe protein-calorie malnutrition; J96.21 Acute and chronic respiratory failure with hypoxia; G93.41 Metabolic encephalopathy; R64 Cachexia; I95.9 Hypotension, unspecified; J45.901 Unspecified asthma with (acute) exacerbation; J96.22 Acute and chronic respiratory failure with hypercapnia; Z68.1 Body mass index [BMI] 19.9 or less, adult; B17.9 Acute viral hepatitis, unspecified; J44.1 Chronic obstructive pulmonary disease with (acute) exacerbation; K21.9 Gastro-esophageal reflux disease without esophagitis; E87.5 Hyperkalemia; R74.8 Abnormal levels of other serum enzymes; E78.5 Hyperlipidemia, unspecified; J20.9 Acute bronchitis, unspecified; D75.89 Other specified diseases of blood and blood-forming organs; F17.210 Nicotine dependence, cigarettes, uncomplicated; B96.20 Unspecified Escherichia coli [E. coli] as the cause of diseases classified elsewhere; R03.0 Elevated blood-pressure reading, without diagnosis of hypertension; M19.90 Unspecified osteoarthritis, unspecified site; G56.03 Carpal tunnel syndrome, bilateral upper limbs; F31.9 Bipolar disorder, unspecified; G43.909 Migraine, unspecified, not intractable, without status migrainosus; F41.9 Anxiety disorder, unspecified; R26.9 Unspecified abnormalities of gait and mobility; F12.90 Cannabis use, unspecified, uncomplicated; R00.0 Tachycardia, unspecified; M50.222 Other cervical disc displacement at C5-C6 level; M47.816 Spondylosis without myelopathy or radiculopathy, lumbar region; R82.71 Bacteriuria; M47.812 Spondylosis without myelopathy or radiculopathy, cervical region; I25.2 Old myocardial infarction; Z81.1 Family history of alcohol abuse and dependence; Z87.11 Personal history of peptic ulcer disease; Z85.41 Personal history of malignant neoplasm of cervix uteri; Z91.19 Patient's noncompliance with other medical treatment and regimen; Z86.14 Personal history of Methicillin resistant Staphylococcus aureus infection; Z90.49 Acquired absence of other specified parts of digestive tract; Z79.52 Long term (current) use of systemic steroids; Z79.82 Long term (current) use of aspirin; Z79.51 Long term (current) use of inhaled steroids; Z79.899 Other long term (current) drug therapy; Z87.01 Personal history of pneumonia (recurrent); Z99.81 Dependence on supplemental oxygen; Z91.14 Patient's other noncompliance with medication regimen; Z71.3 Dietary counseling and surveillance; Z71.6 Tobacco abuse counseling; Z98.51 Tubal ligation status; Z90.710 Acquired absence of both cervix and uterus; Z86.010 Personal history of colon polyps; Z91.5 Personal history of self-harm; Z80.0 Family history of malignant neoplasm of digestive organs; Z79.891 Long term (current) use of opiate analgesic; Z88.6 Allergy status to analgesic agent; Z88.1 Allergy status to other antibiotic agents; Z88.5 Allergy status to narcotic agent; Z88.2 Allergy status to sulfonamides; Z88.8 Allergy status to other drugs, medicaments and biological substances; Z91.018 Allergy to other foods; Z91.048 Other nonmedicinal substance allergy status
CPT/HCPCS: 36415; 71010; 76705; 80053; 80074; 80202; 82550; 82553; 83036; 83520; 83690; 83735; 83880; 84484; 85025; 85610; 85730; 87040; 87077; 87086; 87186; 93005; 93306; 94640; 94644; 94660; 94760; 96365; 96366; 96375; 99291

== ENCOUNTER 2017-04-26 11:36 | Inpatient (IN) | payer OTHER ==
[2017-04-26] MEDS ORDERED: methylPREDNISolone SOD SUCCI 125 MG/2 ML VIAL IM ONE (12:21)
[2017-04-26] MEDS: IPRATROPIUM-ALBUTEROL 3 ML NEB INHALATION PRN ×2 (12:38→23:14)
[2017-04-26 12:44] LABS: Glucose,Whole Blood 117 mg/dL (75-99)
[2017-04-26 12:53] LABS: Anisocytosis Slight; Basophils % (A) 0 %; CH 26.7; CHCM 31.7; Eosinophils % (A) 0 %; HCT 43.1 % (34.0-46.0); HDW 2.56; Hypochromasia Slight; Luc # (Auto) 0.21; Luc % (Auto) 2; Lymphocytes # (A) 1.6 k/uL (1.0-4.8); Lymphocytes % (A) 18 %; MCH 27.6 pg (25.0-35.0); MCHC 32.6 g/dL (31.0-37.0); MCV 84.6 fL (80.0-100.0); Mean Platelet Volume 6.4; Monocytes # (A) 0.4 k/uL (0-1.0); Monocytes % (A) 4 %; Neutrophils # (A) 6.5 k/uL (1.3-7.7); Neutrophils % (A) 75 %; RDW 16.8 % (11.5-15.5); WBC 8.7 k/uL (3.8-10.6); WBC (Perox) 8.69
[2017-04-26 13:13] LABS: ALT 39 U/L (9-52); AST 22 U/L (14-36); Alkaline Phosphatase 104 U/L (38-126); Anion Gap 9 mmol/L; Blood Urea Nitrogen 18 mg/dL (7-17); Calcium 10.1 mg/dL (8.4-10.2); Carbon Dioxide 30 mmol/L (22-30); Chloride 100 mmol/L (98-107); Glucose 109 mg/dL (74-99); Non-African American GFR(MDRD) >60 (>60 ml/min/1.73 sqM); Potassium 4.5 mmol/L (3.5-5.1); Sodium 139 mmol/L (137-145); Total Bilirubin 0.3 mg/dL (0.2-1.3); Total Protein 6.9 g/dL (6.3-8.2)
[2017-04-26] MEDS ORDERED: HYDROcodone/APAP 7.5-325MG 1 EACH TAB PO PRN (13:46)
--- NOTE | 2017-04-26 13:47 | XR ---
EXAMINATION TYPE: XR chest 2V DATE OF EXAM: 04/26/2017 COMPARISON: 01/17/2017 INDICATION: Cough COPD TECHNIQUE: Frontal and lateral views of the chest are obtained. FINDINGS: The heart size is normal. The pulmonary vasculature is normal. The lungs are clear. There is hyperinflation. IMPRESSION: 1. No acute pulmonary process.
--- NOTE | 2017-04-26 13:57 | P.CNPUL ---
History of Present Illness Consult date: 04/26/17 Requesting physician: Italo John Reason for consult: dyspnea, COPD Chief complaint: Shortness of breath History of present illness: This is a very pleasant 46-year-old female patient who follows with Dr. Italo John as her primary care physician. She has a past medical history of hyperlipidemia, gastroesophageal reflux disease, osteoarthritis. She also follows with Dr. Molina in our office for severe oxygen dependent, steroid dependent Gold stage IV chronic obstructive pulmonary disease. Her FEV1 value is 27% of predicted. He has been set up with a AVAPS machine for home. Unfortunately the patient does continue to smoke. She presented to Dr. John's office today with worsening shortness of breath cough and congestion. She was found to have decreased O2 saturations and was directly admitted here for the same. She is seen today in consultation on the regular medical floor. She is awake and alert. She is dyspneic on conversation. She is acquiring 5 L/m per nasal cannula to maintain O2 saturations in the 90s. She is afebrile. No leukocytosis. Hemodynamically stable. Her chest x-ray does show evidence of COPD but no acute pulmonary process. Review of Systems 14 point review of system was conducted. All negative other than as mentioned in HPI. Past Medical History Past Medical History: Asthma, Cancer, Chest Pain / Angina, COPD, GERD/Reflux, Hyperlipidemia, Osteoarthritis (OA) Additional Past Medical History / Comment(s): COPD which is been end-stage with frequent hospitalization for acute COPD exacerbation. The patient has chronic hypoxic and hypercapnic respiratory failure. 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, cervical and lumbar spine spondylosis, chronic migraines, peptic ulcer disease/gastric ulcers, carpal tunnel disease bilaterally, herniated disc at level of C5-C6 and C7, cervical cancer, depression, cachexia and malnourishment and significant loss and total body protein mass Last Myocardial Infarction Date:: UNK History of Any Multi-Drug Resistant Organisms: MRSA Date of last positivie culture/infection: 06/18/2015 MDRO Source:: SPUTUM Past Surgical History: Section, Cholecystectomy, Hysterectomy, Tubal Ligation Additional Past Surgical History / Comment(s): x 2, colonoscopy with benign polypectomy. Past Anesthesia/Blood Transfusion Reactions: No Reported Reaction Additional Past Anesthesia/Blood Transfusion Reaction / Comment(s): Pt has never recieved blood. Past Psychological History: Anxiety, Bipolar, Depression Additional Psychological History / Comment(s): Pt resides with her son jessica. She performs her own ADLs. She has home O2 at 5 L/[place] ATC. She does not drive but her son takes her places. she uses a walker as needed. Per her old medical record dated 07/06/14 pt was seen in [facility] ER for suicide attempt and admitted to psych. Relates that she is an ongoing tobacco smoker-smokes 3 CIG/ DAY. She does not have experience. She has no international travels. Smoking Status: Current every day smoker Past Alcohol Use History: None Reported Additional Past Alcohol Use History / Comment(s): ADMITS TO SMOKING 3 CIG PER DAY. Past Drug Use History: Marijuana Additional Drug Use History / Comment(s): OCC MARIJUANA USE - Past Family History Father Family Medical History: No Reported History Additional Family Medical History / Comment(s): WAS AN ALCOHOLIC Mother Family Medical History: Cancer Additional Family Medical History / Comment(s): AT AGE 54-BOWEL CANCER Medications and Allergies Home Medications Medication Instructions Recorded Confirmed Type Albuterol Inhaler [Ventolin Hfa 2 puff INHALATION RT-QID PRN 01/03/14 04/26/17 History Inhaler] Omeprazole [PriLOSEC] 40 mg PO BID 01/03/14 04/26/17 History Multivitamins, Thera [Multivitamin 1 tab PO DAILY 12/24/14 04/26/17 History (formulary)] risperiDONE 3 mg PO HS 12/24/14 04/26/17 History traZODone HCL 300 mg PO HS 12/24/14 04/26/17 History buPROPion SR [Wellbutrin SR] 150 mg PO DAILY 04/30/15 04/26/17 History Aspirin [Aspirin EC] 325 mg PO HS 03/24/16 04/26/17 History Budesonide-Formot 160-4.5 Mcg 2 puff INHALATION RT-BID puff 07/13/16 04/26/17 Rx [Symbicort 160-4.5 Mcg Inhaler] rOPINIRole HCL 0.5 mg PO HS 07/18/16 04/26/17 History Pregabalin [Lyrica] 100 mg PO BID 10/31/16 04/26/17 History predniSONE 20 mg PO DAILY #0 11/26/16 04/26/17 Rx Magnesium Oxide [Mag-Ox] 400 mg PO DAILY 12/26/16 04/26/17 History Ipratropium-Albuterol Nebulize 3 ml INHALATION RT-QID neb 01/20/17 04/26/17 Rx [Duoneb 0.5 mg-3 mg/3 ml Soln] Hydrocodone/Acetaminophen [[place] 1 tab PO BID PRN 04/26/17 04/26/17 History 7.5-325] Theophylline 24 Hour [Akhil-24] 300 mg PO BID 04/26/17 04/26/17 History Allergies Allergy/AdvReac Type Severity Reaction Status Date / Time aripiprazole [From Abilify] Allergy Rash/Hives Verified 04/26/17 12:22 cephalexin [From Keflex] Allergy Unknown Verified 04/26/17 12:22 honey Allergy Rash/Hives Verified 04/26/17 12:22 methadone [Methadone] Allergy Itching Verified 04/26/17 12:22 naproxen Allergy Rash/Hives Verified 04/26/17 12:22 sulfamethoxazole Allergy Rash/Hives Verified 04/26/17 12:22 [From Bactrim] tetracycline [Tetracycline] Allergy Rash/Hives Verified 04/26/17 12:22 trimethoprim [From Bactrim] Allergy Rash/Hives Verified 04/26/17 12:22 adhesive tape AdvReac Rash/Hives Verified 04/26/17 12:22 codeine AdvReac Abdominal Verified 04/26/17 12:22 Pain ketorolac tromethamine AdvReac Vomiting Verified 04/26/17 12:22 [From Toradol] pregabalin [From Lyrica] AdvReac Unknown Verified 04/26/17 12:22 tramadol HCl [From Ultram] AdvReac SEIZURES Verified 04/26/17 12:22 tromethamine AdvReac Nausea & Verified 04/26/17 12:22 Vomiting Physical Exam Vitals: Vital Signs Temp Pulse Pulse Resp BP Pulse Ox 04/26/17 12:55 92 04/26/17 12:43 92 04/26/17 12:20 98.3 F 94 18 125/84 93 L Intake and Output 04/25/17 04/26/17 04/26/17 22:59 06:59 14:59 Other: Weight 49.5 kg Patient Weight 04/27/17 06:59 Weight 49.5 kg GENERAL EXAM: Frail, cachectic. Alert, in mild respiratory distress. HEAD: Normocephalic. EYES: Normal reaction of pupils, equal size. NOSE: Clear with pink turbinates. THROAT: No erythema or exudates. NECK: No masses, no JVD. CHEST: No chest wall deformity. LUNGS: Equal air entry with lateral end expiratory wheeze. Diminished throughout. CVS: S1 and S2 normal with no audible murmurs, regular rhythm. ABDOMEN: No hepatosplenomegaly, normal bowel sounds, no guarding or rigidity. SPINE: No scoliosis or deformity SKIN: No rashes CENTRAL NERVOUS SYSTEM: No focal deficits, tone is normal in all 4 extremities. Extremities: There is no peripheral edema. No clubbing no cyanosis. Peripheral pulses are intact. Results - Laboratory Findings CBC and BMP: 04/26/17 12:33 04/26/17 12:33 Abnormal lab findings: Abnormal Labs 04/26/17 04/26/17 04/26/17 12:33 12:33 12:41 RDW 16.8 H Plt Count 464 H BUN 18 H Creatinine 0.50 L Glucose 109 H POC Glucose (mg/dL) 117 H - Diagnostic Findings Chest x-ray: image reviewed (No acute pulmonary process) Assessment and Plan Plan: Impression: 1 Acute exacerbation of severe Gold stage IV oxygen dependent and steroid dependent chronic obstructive pulmonary disease. #2 Acute on chronic hypoxic respiratory failure secondary to above. #3 Acute on chronic hypercapnic respiratory failure secondary to above. #4 Chronic and ongoing tobacco dependence. #5 Cachectic/catabolic state secondary to advanced COPD. #6 History of cervical cancer. #7 Cervical spondylosis with lumbar spine spondylosis. #9 Peptic ulcer disease. #9 Remote history of MRSA pneumonia. #10 Poor overall functional performance based on the above-mentioned multiple comorbidities. Plan: The patient was seen and evaluated by Dr. Trujillo. Her chest x-ray and labs were reviewed. We'll go ahead and get her back on her COPD treatment including bronchodilators, will hold the Symbicort and use Pulmicort and Perforomist inhalations twice a day, IV Solu-Medrol 60 mg every 6 hours. She is on empiric antibiotics in the form of Levaquin. We'll continue with her theophylline. We will utilize BiPAP 10/5 at 35% and titrate to keep O2 saturations greater than 88%. We've requested her AVAPS machine from home however she states known as they're to bring it to her. We will continue to follow and make further recommendations based on her clinical status. Time with Patient: Greater than 30
[2017-04-26] MEDS: LEVOFLOXACIN 500MG-D5W PMX 500 MG in DEXTROSE/WATER 1 100ML.BAG IVPB SCH (14:39)
[2017-04-26 14:51] VITALS: BMI 18.7
[2017-04-26 15:05] LABS: Hemoglobin A1C 6.3 % (4.2-6.1)
[2017-04-26] MEDS ORDERED: IPRATROPIUM-ALBUTEROL 3 ML NEB INHALATION SCH (16:00)
[2017-04-26] MEDS: IPRATROPIUM-ALBUTEROL 3 ML NEB INHALATION SCH ×2 (16:05→19:50)
[2017-04-26 17:58] LABS: Glucose,Whole Blood 113 mg/dL (75-99)
[2017-04-26] MEDS: INSULIN LISPRO (humaLOG) 300 UNIT/3 ML VIAL SQ SCH ×2 (18:26→21:17)
[2017-04-26] MEDS: PANTOPRAZOLE 40 MG TABLET PO SCH (18:27)
[2017-04-26] MEDS: methylPREDNISolone SOD SUCCI 125 MG/2 ML VIAL IV SCH ×2 (18:27→23:38)
[2017-04-26] MEDS: SYMBICORT 160-4.5 MCG INHALER INHALATION SCH (19:50)
[2017-04-26] MEDS ORDERED: BUDESONIDE 1 MG/2 ML NEBU INHALATION SCH (20:00)
[2017-04-26] MEDS ORDERED: FORMOTEROL FUMARATE 20 MCG/2 ML NEBU INHALATION SCH (20:00)
[2017-04-26 21:03] LABS: Glucose,Whole Blood 161 mg/dL (75-99)
[2017-04-26] MEDS: traZODone HCL 100 MG TAB PO SCH (21:07)
[2017-04-26] MEDS: risperiDONE 1 MG TAB PO SCH (21:07)
[2017-04-26] MEDS: ASPIRIN 325 MG TAB PO SCH (21:08)
[2017-04-26] MEDS: THEOPHYLLINE 24 HOUR 300 MG CAP.ER.24H PO SCH (21:08)
[2017-04-26] MEDS: PREGABALIN 100 MG CAP PO SCH (21:16)
[2017-04-26] MEDS: HYDROcodone/APAP 7.5-325MG 1 EACH TAB PO PRN (21:16)
[2017-04-27] MEDS: IPRATROPIUM-ALBUTEROL 3 ML NEB INHALATION PRN (03:33)
[2017-04-27] MEDS: HYDROcodone/APAP 7.5-325MG 1 EACH TAB PO PRN ×4 (03:46→19:59)
[2017-04-27] MEDS: methylPREDNISolone SOD SUCCI 125 MG/2 ML VIAL IV SCH ×4 (05:47→23:38)
[2017-04-27 07:29] LABS: Glucose,Whole Blood 129 mg/dL (75-99)
[2017-04-27] MEDS: SYMBICORT 160-4.5 MCG INHALER INHALATION SCH ×2 (07:44→20:40)
[2017-04-27] MEDS: IPRATROPIUM-ALBUTEROL 3 ML NEB INHALATION SCH ×4 (07:44→20:40)
[2017-04-27] MEDS: INSULIN LISPRO (humaLOG) 300 UNIT/3 ML VIAL SQ SCH ×4 (07:48→21:08)
[2017-04-27] MEDS: PANTOPRAZOLE 40 MG TABLET PO SCH ×2 (07:57→17:53)
[2017-04-27] MEDS: buPROPion SR 150 MG TABLET.ER PO SCH (07:58)
[2017-04-27] MEDS: MAGNESIUM OXIDE 400 MG TAB PO SCH (07:58)
[2017-04-27] MEDS: THEOPHYLLINE 24 HOUR 300 MG CAP.ER.24H PO SCH ×2 (07:58→21:01)
[2017-04-27] MEDS: PREGABALIN 100 MG CAP PO SCH ×2 (08:07→21:01)
[2017-04-27] MEDS ORDERED: THEOPHYLLINE 24 HOUR 300 MG CAP.ER.24H PO SCH (09:00)
--- NOTE | 2017-04-27 11:15 | P.PN ---
Subjective This is a very pleasant 46-year-old female patient who follows with Dr. Italo John as her primary care physician. She has a past medical history of hyperlipidemia, gastroesophageal reflux disease, osteoarthritis. She also follows with Dr. Molina in our office for severe oxygen dependent, steroid dependent Gold stage IV chronic obstructive pulmonary disease. Her FEV1 value is 27% of predicted. He has been set up with a AVAPS machine for home. Unfortunately the patient does continue to smoke. She presented to Dr. John's office today with worsening shortness of breath cough and congestion. She was found to have decreased O2 saturations and was directly admitted here for the same. She is seen today in consultation on the regular medical floor. She is awake and alert. She is dyspneic on conversation. She is acquiring 5 L/m per nasal cannula to maintain O2 saturations in the 90s. She is afebrile. No leukocytosis. Hemodynamically stable. Her chest x-ray does show evidence of COPD but no acute pulmonary process. The patient is seen today 04/27/2017 in follow-up on the regular medical floor. She is awake and alert in no acute distress. She does not utilize the BiPAP last evening at all. She does state she is quite short of breath with minimal exertion however. She's not quite back to her baseline. She remains on 5 L/m per nasal cannula to maintain O2 saturations in the low 90s. She's been afebrile. Objective - Vital Signs Vital signs: Vital Signs Temp 96.5 F L 04/27/17 07:00 Pulse 100 04/27/17 07:58 Resp 18 04/27/17 07:00 BP 145/95 04/27/17 07:00 Pulse Ox 94 L 04/27/17 07:00 Intake & Output 04/26/17 04/27/17 04/27/17 18:59 06:59 18:59 Intake Total 840 Balance 840 Weight 49.5 kg Intake: Oral 840 Other: # Voids 1 3 3 - Exam GENERAL EXAM: Frail, cachectic. Alert, in mild respiratory distress. HEAD: Normocephalic. EYES: Normal reaction of pupils, equal size. NOSE: Clear with pink turbinates. THROAT: No erythema or exudates. NECK: No masses, no JVD. CHEST: No chest wall deformity. LUNGS: Equal air entry with lateral end expiratory wheeze. Diminished throughout. CVS: S1 and S2 normal with no audible murmurs, regular rhythm. ABDOMEN: No hepatosplenomegaly, normal bowel sounds, no guarding or rigidity. SPINE: No scoliosis or deformity SKIN: No rashes CENTRAL NERVOUS SYSTEM: No focal deficits, tone is normal in all 4 extremities. Extremities: There is no peripheral edema. No clubbing no cyanosis. Peripheral pulses are intact. - Labs CBC & Chem 7: 04/26/17 12:33 04/26/17 12:33 Labs: Abnormal Lab Results - Last 24 Hours (Table) 04/26/17 04/26/17 04/26/17 Range/Units 12:33 12:33 12:33 RDW 16.8 H (11.5-15.5) % Plt Count 464 H (150-450) k/uL BUN 18 H (7-17) mg/dL Creatinine 0.50 L (0.52-1.04) mg/dL Glucose 109 H (74-99) mg/dL POC Glucose (mg/dL) (75-99) mg/dL Hemoglobin A1c 6.3 H (4.2-6.1) % 04/26/17 04/26/17 04/26/17 Range/Units 12:41 17:53 20:58 RDW (11.5-15.5) % Plt Count (150-450) k/uL BUN (7-17) mg/dL Creatinine (0.52-1.04) mg/dL Glucose (74-99) mg/dL POC Glucose (mg/dL) 117 H 113 H 161 H (75-99) mg/dL Hemoglobin A1c (4.2-6.1) % 04/27/17 Range/Units 07:19 RDW (11.5-15.5) % Plt Count (150-450) k/uL BUN (7-17) mg/dL Creatinine (0.52-1.04) mg/dL Glucose (74-99) mg/dL POC Glucose (mg/dL) 129 H (75-99) mg/dL Hemoglobin A1c (4.2-6.1) % Assessment and Plan Plan: Impression: 1 Acute exacerbation of severe Gold stage IV oxygen dependent and steroid dependent chronic obstructive pulmonary disease. #2 Acute on chronic hypoxic respiratory failure secondary to above. #3 Acute on chronic hypercapnic respiratory failure secondary to above. #4 Chronic and ongoing tobacco dependence. #5 Cachectic/catabolic state secondary to advanced COPD. #6 History of cervical cancer. #7 Cervical spondylosis with lumbar spine spondylosis. #9 Peptic ulcer disease. #9 Remote history of MRSA pneumonia. #10 Poor overall functional performance based on the above-mentioned multiple comorbidities. Plan: The patient was seen and evaluated by Dr. Trujillo. We will continue with her current medications. Probable discharge in the a.m. We will increase her activity as tolerated. We will continue to follow and make further recommendations based on her clinical status.
--- NOTE | 2017-04-27 11:25 | P.HPIM ---
History of Present Illness 46-year-old female presented to family practice physician with diminished breath sounds pulse oximetry of 90% on 5 L of oxygen. States she has increasing shortness of breath. Patient was then directed admitted with pulmonology consultation. Patient has history of COPD severe end-stage gold stage IV oxygen dependent steroid-dependent Review of Systems Constitutional: Reports fatigue, Reports weakness Respiratory: Reports cough, Reports dyspnea Past Medical History Past Medical History: Asthma, Cancer, Chest Pain / Angina, COPD, GERD/Reflux, Hyperlipidemia, Osteoarthritis (OA) Additional Past Medical History / Comment(s): COPD which is been end-stage with frequent hospitalization for acute COPD exacerbation. The patient has chronic hypoxic and hypercapnic respiratory failure. 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, cervical and lumbar spine spondylosis, chronic migraines, peptic ulcer disease/gastric ulcers, carpal tunnel disease bilaterally, herniated disc at level of C5-C6 and C7, cervical cancer, depression, cachexia and malnourishment and significant loss and total body protein mass Last Myocardial Infarction Date:: UNK History of Any Multi-Drug Resistant Organisms: MRSA Date of last positivie culture/infection: 06/18/2015 MDRO Source:: SPUTUM Past Surgical History: Section, Cholecystectomy, Hysterectomy, Tubal Ligation Additional Past Surgical History / Comment(s): x 2, colonoscopy with benign polypectomy. Past Anesthesia/Blood Transfusion Reactions: No Reported Reaction Additional Past Anesthesia/Blood Transfusion Reaction / Comment(s): Pt has never recieved blood. Past Psychological History: Anxiety, Bipolar, Depression Additional Psychological History / Comment(s): Pt resides with her son jessica. She performs her own ADLs. She has home O2 at 5 L/[place] ATC. She does not drive but her son takes her places. she uses a walker as needed. Per her old medical record dated 07/06/14 pt was seen in [facility] ER for suicide attempt and admitted to psych. Relates that she is an ongoing tobacco smoker-smokes 3 CIG/ DAY. She does not have experience. She has no international travels. Smoking Status: Current every day smoker Past Alcohol Use History: None Reported Additional Past Alcohol Use History / Comment(s): ADMITS TO SMOKING 3 CIG PER DAY. Past Drug Use History: Marijuana Additional Drug Use History / Comment(s): OCC MARIJUANA USE - Past Family History Father Family Medical History: No Reported History Additional Family Medical History / Comment(s): WAS AN ALCOHOLIC Mother Family Medical History: Cancer Additional Family Medical History / Comment(s): AT AGE 54-BOWEL CANCER Medications and Allergies Home Medications Medication Instructions Recorded Confirmed Type Albuterol Inhaler [Ventolin Hfa 2 puff INHALATION RT-QID PRN 01/03/14 04/26/17 History Inhaler] Omeprazole [PriLOSEC] 40 mg PO BID 01/03/14 04/26/17 History Multivitamins, Thera [Multivitamin 1 tab PO DAILY 12/24/14 04/26/17 History (formulary)] risperiDONE 3 mg PO HS 12/24/14 04/26/17 History traZODone HCL 300 mg PO HS 12/24/14 04/26/17 History buPROPion SR [Wellbutrin SR] 150 mg PO DAILY 04/30/15 04/26/17 History Aspirin [Aspirin EC] 325 mg PO HS 03/24/16 04/26/17 History Budesonide-Formot 160-4.5 Mcg 2 puff INHALATION RT-BID puff 07/13/16 04/26/17 Rx [Symbicort 160-4.5 Mcg Inhaler] rOPINIRole HCL 0.5 mg PO HS 07/18/16 04/26/17 History Pregabalin [Lyrica] 100 mg PO BID 10/31/16 04/26/17 History predniSONE 20 mg PO DAILY #0 11/26/16 04/26/17 Rx Magnesium Oxide [Mag-Ox] 400 mg PO DAILY 12/26/16 04/26/17 History Ipratropium-Albuterol Nebulize 3 ml INHALATION RT-QID neb 01/20/17 04/26/17 Rx [Duoneb 0.5 mg-3 mg/3 ml Soln] Hydrocodone/Acetaminophen [[place] 1 tab PO BID PRN 04/26/17 04/26/17 History 7.5-325] Theophylline 24 Hour [Akhil-24] 300 mg PO BID 04/26/17 04/26/17 History Allergies Allergy/AdvReac Type Severity Reaction Status Date / Time aripiprazole [From [facility]] Allergy Rash/Hives Verified 04/26/17 12:22 cephalexin [From Keflex] Allergy Unknown Verified 04/26/17 12:22 honey Allergy Rash/Hives Verified 04/26/17 12:22 methadone [Methadone] Allergy Itching Verified 04/26/17 12:22 naproxen Allergy Rash/Hives Verified 04/26/17 12:22 sulfamethoxazole Allergy Rash/Hives Verified 04/26/17 12:22 [From Bactrim] tetracycline [Tetracycline] Allergy Rash/Hives Verified 04/26/17 12:22 trimethoprim [From Bactrim] Allergy Rash/Hives Verified 04/26/17 12:22 adhesive tape AdvReac Rash/Hives Verified 04/26/17 12:22 codeine AdvReac Abdominal Verified 04/26/17 12:22 Pain ketorolac tromethamine AdvReac Vomiting Verified 04/26/17 12:22 [From Toradol] pregabalin [From Lyrica] AdvReac Unknown Verified 04/26/17 12:22 tramadol HCl [From Ultram] AdvReac SEIZURES Verified 04/26/17 12:22 tromethamine AdvReac Nausea & Verified 04/26/17 12:22 Vomiting Physical Exam Vitals: Vital Signs Temp Pulse Pulse Resp BP Pulse Ox 04/27/17 07:58 100 04/27/17 07:44 104 H 04/27/17 07:00 96.5 F L 72 18 145/95 94 L 04/27/17 03:44 96 04/27/17 03:34 92 04/26/17 23:26 88 04/26/17 23:14 88 04/26/17 23:00 96.8 F L 79 24 116/73 97 04/26/17 20:13 92 04/26/17 19:50 91 04/26/17 16:25 87 24 04/26/17 16:18 92 04/26/17 16:05 88 04/26/17 14:52 98.4 F 87 18 139/80 97 04/26/17 12:55 92 04/26/17 12:43 92 04/26/17 12:20 98.3 F 94 18 125/84 93 L Intake and Output 04/26/17 04/27/17 04/27/17 22:59 06:59 14:59 Intake Total 740 100 Balance 740 100 Intake: Oral 740 100 Other: # Voids 3 3 - Constitutional General appearance: mild distress, thin - EENT Eyes: PERRLA Ears: bilateral: normal - Neck Neck: normal ROM - Respiratory Respiratory: right: wheezing, bilateral: diminished (Improvement noted) - Cardiovascular Rhythm: regular - Gastrointestinal General gastrointestinal: soft - Integumentary Integumentary: normal - Neurologic Neurologic: CNII-XII intact - Musculoskeletal Musculoskeletal: generalized weakness - Psychiatric Psychiatric: A&O x's 3, appropriate affect, intact judgment & insight Results CBC & Chem 7: 04/26/17 12:33 04/26/17 12:33 Labs: Abnormal Lab Results - Last 24 Hours (Table) 04/26/17 04/26/17 04/26/17 Range/Units 12:33 12:33 12:33 RDW 16.8 H (11.5-15.5) % Plt Count 464 H (150-450) k/uL BUN 18 H (7-17) mg/dL Creatinine 0.50 L (0.52-1.04) mg/dL Glucose 109 H (74-99) mg/dL POC Glucose (mg/dL) (75-99) mg/dL Hemoglobin A1c 6.3 H (4.2-6.1) % 04/26/17 04/26/17 04/26/17 Range/Units 12:41 17:53 20:58 RDW (11.5-15.5) % Plt Count (150-450) k/uL BUN (7-17) mg/dL Creatinine (0.52-1.04) mg/dL Glucose (74-99) mg/dL POC Glucose (mg/dL) 117 H 113 H 161 H (75-99) mg/dL Hemoglobin A1c (4.2-6.1) % 04/27/17 Range/Units 07:19 RDW (11.5-15.5) % Plt Count (150-450) k/uL BUN (7-17) mg/dL Creatinine (0.52-1.04) mg/dL Glucose (74-99) mg/dL POC Glucose (mg/dL) 129 H (75-99) mg/dL Hemoglobin A1c (4.2-6.1) % Chest x-ray: report reviewed Thrombosis Risk Factor Assmnt - Choose All That Apply Each Factor Represents 1 point: Abnormal pulmonary function (COPD), Age 41-60 years Other Risk Factors: No Other congenital or acquired thrombophilia - If yes, enter type in comment: No Thrombosis Risk Factor Assessment Total Risk Factor Score: 2 Thrombosis Risk Factor Assessment Level: Low Risk Assessment and Plan Plan: Assessment Acute exacerbation of severe cold stage IV oxygen dependent surgery dependent chronic COPD Acute on chronic hypoxic respiratory failure hypercapnic Chronic ongoing tobacco dependence Cachectic/catabolic state secondary to advanced COPD History of cervical cancer Cervical and lumbar spine spondylosis opioid dependent History of GERD with peptic ulcer Remote history of MRSA pneumonia Plan On prophylactic Levaquin Steroids and bronchodilators BiPAP at bedside as needed Continue consultation with pulmonology Hopeful discharge tomorrow
[2017-04-27 11:52] LABS: Glucose,Whole Blood 123 mg/dL (75-99)
[2017-04-27] MEDS: LEVOFLOXACIN 500MG-D5W PMX 500 MG in DEXTROSE/WATER 1 100ML.BAG IVPB SCH (12:28)
[2017-04-27] MEDS: MULTIVITAMINS, THERA 1 EACH TAB PO SCH (12:28)
[2017-04-27 17:16] LABS: Glucose,Whole Blood 116 mg/dL (75-99)
[2017-04-27 20:54] LABS: Glucose,Whole Blood 154 mg/dL (75-99)
[2017-04-27] MEDS: risperiDONE 1 MG TAB PO SCH (21:01)
[2017-04-27] MEDS: traZODone HCL 100 MG TAB PO SCH (21:01)
[2017-04-27] MEDS: ASPIRIN 325 MG TAB PO SCH (21:01)
[2017-04-28] MEDS: IPRATROPIUM-ALBUTEROL 3 ML NEB INHALATION PRN ×2 (00:52→04:26)
[2017-04-28] MEDS: HYDROcodone/APAP 7.5-325MG 1 EACH TAB PO PRN ×4 (01:11→19:33)
[2017-04-28] MEDS: methylPREDNISolone SOD SUCCI 125 MG/2 ML VIAL IV SCH ×4 (06:19→23:34)
[2017-04-28 07:26] LABS: Glucose,Whole Blood 126 mg/dL (75-99)
[2017-04-28] MEDS: SYMBICORT 160-4.5 MCG INHALER INHALATION SCH ×2 (07:37→20:49)
[2017-04-28] MEDS: IPRATROPIUM-ALBUTEROL 3 ML NEB INHALATION SCH ×4 (07:37→20:50)
[2017-04-28] MEDS: INSULIN LISPRO (humaLOG) 300 UNIT/3 ML VIAL SQ SCH ×4 (07:42→22:15)
[2017-04-28] MEDS: PREGABALIN 100 MG CAP PO SCH ×2 (07:49→21:08)
[2017-04-28] MEDS: buPROPion SR 150 MG TABLET.ER PO SCH (07:49)
[2017-04-28] MEDS: PANTOPRAZOLE 40 MG TABLET PO SCH ×2 (07:49→16:53)
[2017-04-28] MEDS: MAGNESIUM OXIDE 400 MG TAB PO SCH (07:49)
[2017-04-28] MEDS: THEOPHYLLINE 24 HOUR 300 MG CAP.ER.24H PO SCH ×2 (07:49→21:10)
[2017-04-28] MEDS: MULTIVITAMINS, THERA 1 EACH TAB PO SCH (11:20)
[2017-04-28] MEDS ORDERED: KETOROLAC 60 MG/2 ML VIAL IM STA (11:23)
--- NOTE | 2017-04-28 11:43 | P.PN ---
Subjective Principal diagnosis: Patient resting in bed states. Noted improvement in rest her status. Patient states she doesn't feel monitor ammonia continue consultation with pulmonology Objective - Vital Signs Vital signs: Vital Signs Temp 97.8 F 04/28/17 07:00 Pulse 94 04/28/17 07:47 Resp 18 04/28/17 07:00 BP 138/80 04/28/17 07:00 Pulse Ox 92 L 04/28/17 07:00 Intake & Output 04/27/17 04/28/17 04/28/17 18:59 06:59 18:59 Other: # Voids 2 1 1 # Bowel Movements 1 - Constitutional General appearance: Present: thin - EENT Eyes: Present: PERRLA Ears: bilateral: normal - Neck Neck: Present: normal ROM - Respiratory Respiratory: bilateral: diminished, wheezing - Cardiovascular Rhythm: regular - Gastrointestinal General gastrointestinal: Present: soft - Integumentary Integumentary: Present: normal - Neurologic Neurologic: Present: CNII-XII intact - Musculoskeletal Musculoskeletal: Present: generalized weakness - Psychiatric Psychiatric: Present: A&O x's 3, appropriate affect, intact judgment & insight - Labs CBC & Chem 7: 04/26/17 12:33 04/26/17 12:33 Labs: Abnormal Lab Results - Last 24 Hours (Table) 04/27/17 04/27/17 04/27/17 Range/Units 11:47 17:11 20:52 POC Glucose (mg/dL) 123 H 116 H 154 H (75-99) mg/dL 04/28/17 Range/Units 07:19 POC Glucose (mg/dL) 126 H (75-99) mg/dL Assessment and Plan Plan: Assessment Acute on chronic COPD severe gold stage IV oxygen dependent and steroid dependent Acute on chronic hypoxic respiratory failure hypercapnic Chronic and ongoing tobacco dependence Cachectic/catabolic state secondary to advanced COPD History of cervical cancer Cervical lumbar spinal spondylosis or. Dependence Peptic ulcer disease Emote history of MRSA Plan Continue consultation with pulmonology On antibiotics prophylactic bronchodilators and steroids
[2017-04-28 12:20] LABS: Glucose,Whole Blood 122 mg/dL (75-99)
[2017-04-28] MEDS ORDERED: LEVOFLOXACIN 500 MG TAB PO SCH (13:00)
--- NOTE | 2017-04-28 13:42 | P.PN ---
Subjective This is a very pleasant 46-year-old female patient who follows with Dr. Italo John as her primary care physician. She has a past medical history of hyperlipidemia, gastroesophageal reflux disease, osteoarthritis. She also follows with Dr. Molina in our office for severe oxygen dependent, steroid dependent Gold stage IV chronic obstructive pulmonary disease. Her FEV1 value is 27% of predicted. He has been set up with a AVAPS machine for home. Unfortunately the patient does continue to smoke. She presented to Dr. John's office today with worsening shortness of breath cough and congestion. She was found to have decreased O2 saturations and was directly admitted here for the same. She is seen today in consultation on the regular medical floor. She is awake and alert. She is dyspneic on conversation. She is acquiring 5 L/m per nasal cannula to maintain O2 saturations in the 90s. She is afebrile. No leukocytosis. Hemodynamically stable. Her chest x-ray does show evidence of COPD but no acute pulmonary process. The patient is seen today 04/27/2017 in follow-up on the regular medical floor. She is awake and alert in no acute distress. She does not utilize the BiPAP last evening at all. She does state she is quite short of breath with minimal exertion however. She's not quite back to her baseline. She remains on 5 L/m per nasal cannula to maintain O2 saturations in the low 90s. She's been afebrile. The patient is seen again today 04/28/2017 in follow-up on the regular medical floor. She is resting fairly comfortable in bed. She states she's been up to the bathroom and had less shortness of breath today as compared to yesterday with the same exertion. She is less bronchospastic and wheezy. She still has complaints of rib pain from coughing. She declined the use of the BiPAP last night. She is maintaining O2 saturations in the 90s on 5 L/m per nasal cannula. Objective - Vital Signs Vital signs: Vital Signs Temp 97.8 F 04/28/17 07:00 Pulse 98 04/28/17 11:50 Resp 18 04/28/17 07:00 BP 138/80 04/28/17 07:00 Pulse Ox 92 L 04/28/17 07:00 Intake & Output 04/27/17 04/28/17 04/28/17 18:59 06:59 18:59 Other: # Voids 2 1 1 # Bowel Movements 1 - Exam GENERAL EXAM: Frail, cachectic. Alert, in mild respiratory distress. HEAD: Normocephalic. EYES: Normal reaction of pupils, equal size. NOSE: Clear with pink turbinates. THROAT: No erythema or exudates. NECK: No masses, no JVD. CHEST: No chest wall deformity. LUNGS: Equal air entry with lateral end expiratory wheeze. Diminished throughout. CVS: S1 and S2 normal with no audible murmurs, regular rhythm. ABDOMEN: No hepatosplenomegaly, normal bowel sounds, no guarding or rigidity. SPINE: No scoliosis or deformity SKIN: No rashes CENTRAL NERVOUS SYSTEM: No focal deficits, tone is normal in all 4 extremities. Extremities: There is no peripheral edema. No clubbing no cyanosis. Peripheral pulses are intact. - Labs CBC & Chem 7: 04/26/17 12:33 04/26/17 12:33 Labs: Abnormal Lab Results - Last 24 Hours (Table) 04/27/17 04/27/17 04/28/17 Range/Units 17:11 20:52 07:19 POC Glucose (mg/dL) 116 H 154 H 126 H (75-99) mg/dL 04/28/17 Range/Units 12:17 POC Glucose (mg/dL) 122 H (75-99) mg/dL Assessment and Plan Plan: Impression: #1 Acute exacerbation of severe Gold stage IV oxygen dependent and steroid dependent chronic obstructive pulmonary disease. #2 Acute on chronic hypoxic respiratory failure secondary to above. #3 Acute on chronic hypercapnic respiratory failure secondary to above. #4 Chronic and ongoing tobacco dependence. #5 Cachectic/catabolic state secondary to advanced COPD. #6 History of cervical cancer. #7 Cervical spondylosis with lumbar spine spondylosis. #9 Peptic ulcer disease. #9 Remote history of MRSA pneumonia. #10 Poor overall functional performance based on the above-mentioned multiple comorbidities. Plan: The patient was seen and evaluated by Dr. Trujillo. We will continue with her current medications. She is on empiric antibiotics including Levaquin. We will increase her activity as tolerated. We will continue to follow and make further recommendations based on her clinical status.
[2017-04-28 17:26] LABS: Glucose,Whole Blood 145 mg/dL (75-99)
[2017-04-28 20:39] LABS: Glucose,Whole Blood 158 mg/dL (75-99)
[2017-04-28] MEDS: ASPIRIN 325 MG TAB PO SCH (21:08)
[2017-04-28] MEDS: risperiDONE 1 MG TAB PO SCH (21:08)
[2017-04-28] MEDS: traZODone HCL 100 MG TAB PO SCH (21:11)
[2017-04-29] MEDS: IPRATROPIUM-ALBUTEROL 3 ML NEB INHALATION PRN ×2 (00:20→03:41)
[2017-04-29] MEDS: HYDROcodone/APAP 7.5-325MG 1 EACH TAB PO PRN ×2 (02:41→08:17)
[2017-04-29] MEDS: methylPREDNISolone SOD SUCCI 125 MG/2 ML VIAL IV SCH ×2 (06:03→12:23)
[2017-04-29] MEDS: IPRATROPIUM-ALBUTEROL 3 ML NEB INHALATION SCH ×2 (07:18→11:09)
[2017-04-29] MEDS: SYMBICORT 160-4.5 MCG INHALER INHALATION SCH (07:18)
[2017-04-29 07:34] LABS: Glucose,Whole Blood 141 mg/dL (75-99)
[2017-04-29 07:53] VITALS: BP 143/89; RESP 20; TEMP 98.1
[2017-04-29] MEDS: INSULIN LISPRO (humaLOG) 300 UNIT/3 ML VIAL SQ SCH ×2 (08:17→13:28)
[2017-04-29] MEDS: PREGABALIN 100 MG CAP PO SCH (08:17)
[2017-04-29] MEDS: buPROPion SR 150 MG TABLET.ER PO SCH (08:18)
[2017-04-29] MEDS: THEOPHYLLINE 24 HOUR 300 MG CAP.ER.24H PO SCH (08:19)
[2017-04-29] MEDS: PANTOPRAZOLE 40 MG TABLET PO SCH (08:19)
[2017-04-29] MEDS: MAGNESIUM OXIDE 400 MG TAB PO SCH (08:19)
[2017-04-29 11:11] VITALS: PULSE 92
[2017-04-29] MEDS: MULTIVITAMINS, THERA 1 EACH TAB PO SCH (12:23)
[2017-04-29 12:32] LABS: Glucose,Whole Blood 118 mg/dL (75-99)
--- NOTE | 2017-04-29 12:54 | P.PN ---
Subjective This is a very pleasant 46-year-old female patient who follows with Dr. Italo John as her primary care physician. She has a past medical history of hyperlipidemia, gastroesophageal reflux disease, osteoarthritis. She also follows with Dr. Molina in our office for severe oxygen dependent, steroid dependent Gold stage IV chronic obstructive pulmonary disease. Her FEV1 value is 27% of predicted. He has been set up with a AVAPS machine for home. Unfortunately the patient does continue to smoke. She presented to Dr. John's office today with worsening shortness of breath cough and congestion. She was found to have decreased O2 saturations and was directly admitted here for the same. She is seen today in consultation on the regular medical floor. She is awake and alert. She is dyspneic on conversation. She is acquiring 5 L/m per nasal cannula to maintain O2 saturations in the 90s. She is afebrile. No leukocytosis. Hemodynamically stable. Her chest x-ray does show evidence of COPD but no acute pulmonary process. The patient is seen today 04/27/2017 in follow-up on the regular medical floor. She is awake and alert in no acute distress. She does not utilize the BiPAP last evening at all. She does state she is quite short of breath with minimal exertion however. She's not quite back to her baseline. She remains on 5 L/m per nasal cannula to maintain O2 saturations in the low 90s. She's been afebrile. The patient is seen again today 04/28/2017 in follow-up on the regular medical floor. She is resting fairly comfortable in bed. She states she's been up to the bathroom and had less shortness of breath today as compared to yesterday with the same exertion. She is less bronchospastic and wheezy. She still has complaints of rib pain from coughing. She declined the use of the BiPAP last night. She is maintaining O2 saturations in the 90s on 5 L/m per nasal cannula. The patient is seen again today 04/29/2017 in follow-up on the regular medical floor. She is awake and alert in no acute distress. She is actually anxious to go home. She states she is back to her baseline. She still has some dyspnea on minimal exertion but improving daily. She is maintaining O2 saturations in the mid 90s on 5 L/m per nasal cannula. She is afebrile. Objective - Vital Signs Vital signs: Vital Signs Temp 98.1 F 04/29/17 07:00 Pulse 92 04/29/17 11:22 Resp 20 04/29/17 07:00 BP 143/89 04/29/17 07:00 Pulse Ox 96 04/29/17 07:00 Intake & Output 04/28/17 04/29/17 04/29/17 18:59 06:59 18:59 Other: Voiding Method Toilet Toilet # Voids 1 1 - Exam GENERAL EXAM: Frail, cachectic. Alert, in mild respiratory distress. HEAD: Normocephalic. EYES: Normal reaction of pupils, equal size. NOSE: Clear with pink turbinates. THROAT: No erythema or exudates. NECK: No masses, no JVD. CHEST: No chest wall deformity. LUNGS: Equal air entry with lateral end expiratory wheeze. Diminished throughout. CVS: S1 and S2 normal with no audible murmurs, regular rhythm. ABDOMEN: No hepatosplenomegaly, normal bowel sounds, no guarding or rigidity. SPINE: No scoliosis or deformity SKIN: No rashes CENTRAL NERVOUS SYSTEM: No focal deficits, tone is normal in all 4 extremities. Extremities: There is no peripheral edema. No clubbing no cyanosis. Peripheral pulses are intact. - Labs CBC & Chem 7: 04/26/17 12:33 04/26/17 12:33 Labs: Abnormal Lab Results - Last 24 Hours (Table) 04/28/17 04/28/17 04/29/17 Range/Units 17:21 20:38 07:31 POC Glucose (mg/dL) 145 H 158 H 141 H (75-99) mg/dL 04/29/17 Range/Units 12:27 POC Glucose (mg/dL) 118 H (75-99) mg/dL Assessment and Plan Plan: Impression: #1 Acute exacerbation of severe Gold stage IV oxygen dependent and steroid dependent chronic obstructive pulmonary disease. #2 Acute on chronic hypoxic respiratory failure secondary to above. #3 Acute on chronic hypercapnic respiratory failure secondary to above. #4 Chronic and ongoing tobacco dependence. #5 Cachectic/catabolic state secondary to advanced COPD. #6 History of cervical cancer. #7 Cervical spondylosis with lumbar spine spondylosis. #9 Peptic ulcer disease. #9 Remote history of MRSA pneumonia. #10 Poor overall functional performance based on the above-mentioned multiple comorbidities. Plan: The patient was seen and evaluated by Dr. Trujillo. She is cleared for discharge from the pulmonary standpoint. She will utilize her average volume assured pressure support machine at home each night and during the day as tolerated. She'll complete a prednisone taper. Complete a course of empiric antibiotics. Continue her home pulmonary medications. She'll follow-up with Dr. Molina in our office in 1-2 weeks' time. She is however encouraged to call sooner with any recurrence of symptoms or other questions or concerns.
--- NOTE | 2017-04-29 20:11 | P.DS ---
Providers Date of admission: 04/26/17 11:51 Attending physician: Italo John Consults: 04/26/17 12:10 Consult Physician Urgent Consulting Provider: Kevon Molina Consult Reason/Comments: COPD Do you want consulting provider notified?: Yes Primary care physician: Italo John Hospital Course: This 46-year-old woman with a past medical history multiple medical problems was admitted with COPD acute exacerbation as well as acute on chronic hypoxic respiratory failure. The patient was treated with a bronchitis and steroids. Dr. Owusu saw the patient during the hospitalization. Patient improved significantly. Recommended the patient be discharged in the preceding. The patient be discharged in a stable condition with guarded prognosis for further plans to follow up with Dr. Adia John in the preceding. On exam vitals stable. Cardio S1 and S2 normal. Respiratory system bilateral scattered rhonchi and crackles. Abdomen soft nontender no mass palpable. Final diagnosis 1. COPD acute exacerbation with a severe gold stage IV COPD oxygen dependent and steroid dependent. Acute purulent tracheobronchitis 2. Acute on chronic hypoxic respiratory failure hypercapnic. 3. Chronic and Ongoing nicotine dependence. 4. Cachexia catabolic status secondary to advanced COPD with mild to moderate malnutrition. 5. History of cervical cancer 6. Cervical DJD 7. Peptic ulcer disease 8. Remote history of for MRSA. Patient Condition at Discharge: Stable Plan - Discharge Summary New Discharge Prescriptions: New Levofloxacin [Levaquin] 500 mg PO Q24H #5 tab predniSONE 10 mg PO DIRECTED #30 tab Continue Omeprazole [PriLOSEC] 40 mg PO BID Albuterol Inhaler [Ventolin Hfa Inhaler] 2 puff INHALATION RT-QID PRN PRN Reason: Shortness Of Breath Multivitamins, Thera [Multivitamin (formulary)] 1 tab PO DAILY risperiDONE 3 mg PO HS traZODone HCL 300 mg PO HS buPROPion SR [Wellbutrin SR] 150 mg PO DAILY Aspirin [Aspirin EC] 325 mg PO HS Budesonide-Formot 160-4.5 Mcg [Symbicort 160-4.5 Mcg Inhaler] 2 puff INHALATION RT-BID puff rOPINIRole HCL 0.5 mg PO HS Pregabalin [Lyrica] 100 mg PO BID predniSONE 20 mg PO DAILY #0 Magnesium Oxide [Mag-Ox] 400 mg PO DAILY Ipratropium-Albuterol Nebulize [Duoneb 0.5 mg-3 mg/3 ml Soln] 3 ml INHALATION RT-QID neb Theophylline 24 Hour [Akhil-24] 300 mg PO BID Hydrocodone/Acetaminophen [[place] 7.5-325] 1 tab PO BID PRN PRN Reason: Pain Discharge Medication List Albuterol Inhaler [Ventolin Hfa Inhaler] 2 puff INHALATION RT-QID PRN 01/03/14 [ History] Omeprazole [PriLOSEC] 40 mg PO BID 01/03/14 [History] Multivitamins, Thera [Multivitamin (formulary)] 1 tab PO DAILY 12/24/14 [History ] risperiDONE 3 mg PO HS 12/24/14 [History] traZODone HCL 300 mg PO HS 12/24/14 [History] buPROPion SR [Wellbutrin SR] 150 mg PO DAILY 04/30/15 [History] Aspirin [Aspirin EC] 325 mg PO HS 03/24/16 [History] Budesonide-Formot 160-4.5 Mcg [Symbicort 160-4.5 Mcg Inhaler] 2 puff INHALATION RT-BID puff 07/13/16 [Rx] rOPINIRole HCL 0.5 mg PO HS 07/18/16 [History] Pregabalin [Lyrica] 100 mg PO BID 10/31/16 [History] predniSONE 20 mg PO DAILY #0 11/26/16 [Rx] Magnesium Oxide [Mag-Ox] 400 mg PO DAILY 12/26/16 [History] Ipratropium-Albuterol Nebulize [Duoneb 0.5 mg-3 mg/3 ml Soln] 3 ml INHALATION RT -QID neb 01/20/17 [Rx] Hydrocodone/Acetaminophen [[place] 7.5-325] 1 tab PO BID PRN 04/26/17 [History] Theophylline 24 Hour [Akhil-24] 300 mg PO BID 04/26/17 [History] Levofloxacin [Levaquin] 500 mg PO Q24H #5 tab 04/29/17 [Rx] predniSONE 10 mg PO DIRECTED #30 tab 04/29/17 [Rx] Follow up Appointment(s)/Referral(s): Italo John MD [Primary Care Provider] - 05/03/17 12:10 pm Gordon Trujillo MD [STAFF PHYSICIAN] - 05/12/17 10:30 am Ambulatory/Diagnostic Orders: Complete Blood Count w/diff [LAB.AMB] Time Frame: 3 Days, Location: Determined By Patient Patient Instructions/Handouts: Breathing Techniques (DC) Activity/Diet/Wound Care/Special Instructions: COPD literature given on multiple occasions. Pt aware of disease process. Smoking cessation packet also given to pt and pt verblaizes understanding re smoking and increased symptoms. 5l nc O2, Bipap, nebulizer has at home Limit activity as tolerated. Regular diet. Discharge Disposition: HOME SELF-CARE
[2017-04-30] MEDS ORDERED: predniSONE 20 MG TAB PO SCH (09:00)
== END 2017-04-29 13:32 | disposition home or self-care (01) | DRG 190 ==
LOC: 4MS4W 11:51
PROVIDERS: ADMIT Family Medicine; ATTEND Family Medicine
PROC: 3E0234Z Introduction of Serum, Toxoid and Vaccine into Muscle, Percutaneous Approach (ICD-10-PCS; principal; 2017-04-26)
DX: J44.1 Chronic obstructive pulmonary disease with (acute) exacerbation (principal); J96.21 Acute and chronic respiratory failure with hypoxia; R64 Cachexia; E44.0 Moderate protein-calorie malnutrition; F11.20 Opioid dependence, uncomplicated; M50.222 Other cervical disc displacement at C5-C6 level; J96.22 Acute and chronic respiratory failure with hypercapnia; Z68.1 Body mass index [BMI] 19.9 or less, adult; Z99.81 Dependence on supplemental oxygen; K21.9 Gastro-esophageal reflux disease without esophagitis; E78.5 Hyperlipidemia, unspecified; F41.9 Anxiety disorder, unspecified; F12.90 Cannabis use, unspecified, uncomplicated; G43.909 Migraine, unspecified, not intractable, without status migrainosus; I25.2 Old myocardial infarction; M47.816 Spondylosis without myelopathy or radiculopathy, lumbar region; J20.9 Acute bronchitis, unspecified; R53.1 Weakness; J44.0 Chronic obstructive pulmonary disease with (acute) lower respiratory infection; F31.9 Bipolar disorder, unspecified; M47.812 Spondylosis without myelopathy or radiculopathy, cervical region; K27.9 Peptic ulcer, site unspecified, unspecified as acute or chronic, without hemorrhage or perforation; F17.210 Nicotine dependence, cigarettes, uncomplicated; Z23 Encounter for immunization; Z71.6 Tobacco abuse counseling; Z79.82 Long term (current) use of aspirin; Z79.899 Other long term (current) drug therapy; Z79.51 Long term (current) use of inhaled steroids; Z87.11 Personal history of peptic ulcer disease; Z86.14 Personal history of Methicillin resistant Staphylococcus aureus infection; Z79.52 Long term (current) use of systemic steroids; Z85.41 Personal history of malignant neoplasm of cervix uteri; Z87.01 Personal history of pneumonia (recurrent); Z90.710 Acquired absence of both cervix and uterus; Z90.49 Acquired absence of other specified parts of digestive tract; Z98.51 Tubal ligation status; Z86.79 Personal history of other diseases of the circulatory system; Z91.5 Personal history of self-harm; Z86.010 Personal history of colon polyps; Z87.39 Personal history of other diseases of the musculoskeletal system and connective tissue; Z81.1 Family history of alcohol abuse and dependence; Z80.0 Family history of malignant neoplasm of digestive organs; Z88.6 Allergy status to analgesic agent; Z88.1 Allergy status to other antibiotic agents; Z88.5 Allergy status to narcotic agent; Z88.2 Allergy status to sulfonamides; Z88.8 Allergy status to other drugs, medicaments and biological substances; Z91.018 Allergy to other foods; Z91.048 Other nonmedicinal substance allergy status
CPT/HCPCS: 71020; 80053; 83036; 85025; 94640; 94660

== ENCOUNTER 2017-07-06 14:29 | Inpatient (IN) | payer OTHER ==
[2017-07-06] MEDS ORDERED: IPRATROPIUM 0.5 MG/2.5 ML NEBU INHALATION STA (14:36)
[2017-07-06] MEDS ORDERED: methylPREDNISolone SOD SUCCI 125 MG/2 ML VIAL IV STA (14:36)
[2017-07-06] MEDS ORDERED: ALBUTEROL NEBULIZED 2.5 MG/3 ML INHALATION STA (14:36)
[2017-07-06] MEDS ORDERED: MAGNESIUM SULFATE-D5W PMX 2 GM in DEXTROSE/WATER 1 100ML.BAG IVPB STA (14:36)
[2017-07-06] MEDS ORDERED: MORPHINE SULFATE 10 MG/ML SYRINGE IV STA (15:07)
[2017-07-06] MEDS ORDERED: MORPHINE SULFATE 10 MG/ML SYRINGE IVP STA (15:17)
[2017-07-06 15:18] LABS: Anisocytosis Slight; Basophils # (A) 0.1 k/uL (0-0.2); Basophils % (A) 0 %; CH 27.4; CHCM 31.7; Eosinophils # (A) 0.1 k/uL (0-0.7); Eosinophils % (A) 1 %; HCT 41.3 % (34.0-46.0); HDW 2.52; HGB 13.2 gm/dL (11.4-16.0); Luc # (Auto) 0.22; Luc % (Auto) 1; Lymphocytes # (A) 3.4 k/uL (1.0-4.8); Lymphocytes % (A) 21 %; MCH 27.7 pg (25.0-35.0); MCHC 31.9 g/dL (31.0-37.0); MCV 86.8 fL (80.0-100.0); Mean Platelet Volume 6.8; Monocytes # (A) 0.8 k/uL (0-1.0); Monocytes % (A) 5 %; Neutrophils # (A) 11.4 k/uL (1.3-7.7); Neutrophils % (A) 71 %; RBC 4.76 m/uL (3.80-5.40); RDW 17.2 % (11.5-15.5); WBC (Perox) 16.39
[2017-07-06 15:28] LABS: Partial Thromboplastin Time 22.8 sec (22.0-30.0); Prothrombin Time 10.2 sec (9.0-12.0)
[2017-07-06 15:30] LABS: ALT 28 U/L (9-52); AST 14 U/L (14-36); Alkaline Phosphatase 87 U/L (38-126); Anion Gap 8 mmol/L; Blood Urea Nitrogen 15 mg/dL (7-17); Calcium 9.4 mg/dL (8.4-10.2); Carbon Dioxide 29 mmol/L (22-30); Chloride 102 mmol/L (98-107); Glucose 101 mg/dL (74-99); Non-African American GFR(MDRD) >60 (>60 ml/min/1.73 sqM); Sodium 139 mmol/L (137-145); Total Bilirubin 0.5 mg/dL (0.2-1.3); Total Protein 6.5 g/dL (6.3-8.2)
--- NOTE | 2017-07-06 15:53 | XR ---
EXAMINATION TYPE: XR chest 1V portable DATE OF EXAM: 07/06/2017 COMPARISON: 04/26/2017 HISTORY: Shortness of breath TECHNIQUE: Single frontal view of the chest is obtained. FINDINGS: There is a nodular area of infiltrate in the left upper lobe. Hyperinflation suggests COPD . No pneumothorax. No overt failure. Arthropathy of the shoulders. IMPRESSION: 1. Left upper lobe infiltrate. Pneumonia favored. Follow-up to resolution to exclude underlying neopl asm. 2. Correlate for COPD.
--- NOTE | 2017-07-06 16:04 | ED ---
SOB HPI - General Chief Complaint: Shortness of Breath Stated Complaint: SOB Time Seen by Provider: 07/06/17 14:36 Source: patient Mode of arrival: wheelchair Limitations: no limitations - History of Present Illness Initial Comments: Patient presents with shortness of breath. She has COPD. She has no chest pain or tightness. She has no lightheadedness or dizziness. She has no nausea or vomiting. Nothing makes her symptoms better or worse. She has used medication at home with no relief. She has no palpitations. She has no pain or swelling in the legs. She has no syncopal or presyncope. - Related Data Home Medications Medication Instructions Recorded Confirmed Albuterol Inhaler [Ventolin Hfa 2 puff INHALATION RT-QID PRN 01/03/14 07/06/17 Inhaler] Omeprazole [PriLOSEC] 40 mg PO BID 01/03/14 07/06/17 Multivitamins, Thera [Multivitamin 1 tab PO DAILY 12/24/14 07/06/17 (formulary)] risperiDONE 3 mg PO HS 12/24/14 07/06/17 traZODone HCL 300 mg PO HS 12/24/14 07/06/17 buPROPion SR [Wellbutrin SR] 150 mg PO DAILY 04/30/15 07/06/17 Aspirin [Aspirin EC] 325 mg PO HS 03/24/16 07/06/17 rOPINIRole HCL 1 mg PO HS 07/18/16 07/06/17 Pregabalin [Lyrica] 100 mg PO BID 10/31/16 07/06/17 Magnesium Oxide [Mag-Ox] 400 mg PO DAILY 12/26/16 07/06/17 Hydrocodone/Acetaminophen [[place] 1 tab PO Q6H PRN 04/26/17 07/06/17 7.5-325] Theophylline 24 Hour [Akhil-24] 200 mg PO BID 07/06/17 07/06/17 Tiotropium 18 Mcg/Puff [Spiriva] 1 cap INHALATION RT-DAILY 07/06/17 07/06/17 Umeclidinium [place] [Incruse 1 puff INHALATION RT-DAILY 07/06/17 07/06/17 Ellipta] Previous Rx's Medication Instructions Recorded Budesonide-Formot 160-4.5 Mcg 2 puff INHALATION RT-BID puff 07/13/16 [Symbicort 160-4.5 Mcg Inhaler] predniSONE 20 mg PO DAILY #0 11/26/16 Ipratropium-Albuterol Nebulize 3 ml INHALATION RT-QID neb 01/20/17 [Duoneb 0.5 mg-3 mg/3 ml Soln] Allergies Allergy/AdvReac Type Severity Reaction Status Date / Time aripiprazole [From Abilify] Allergy Rash/Hives Verified 07/06/17 16:09 cephalexin [From Keflex] Allergy Unknown Verified 07/06/17 16:09 honey Allergy Rash/Hives Verified 07/06/17 16:09 methadone [Methadone] Allergy Itching Verified 07/06/17 16:09 naproxen Allergy Rash/Hives Verified 07/06/17 16:09 sulfamethoxazole Allergy Rash/Hives Verified 07/06/17 16:09 [From Bactrim] tetracycline [Tetracycline] Allergy Rash/Hives Verified 07/06/17 16:09 trimethoprim [From Bactrim] Allergy Rash/Hives Verified 07/06/17 16:09 adhesive tape AdvReac Rash/Hives Verified 07/06/17 16:09 tramadol HCl [From Ultram] AdvReac SEIZURES Verified 07/06/17 16:09 tromethamine AdvReac Nausea & Verified 07/06/17 16:09 Vomiting Review of Systems ROS Statement: Those systems with pertinent positive or pertinent negative responses have been documented in the HPI. ROS Other: All systems not noted in ROS Statement are negative. Past Medical History Past Medical History: Asthma, Cancer, Chest Pain / Angina, COPD, GERD/Reflux, Hyperlipidemia, Osteoarthritis (OA) Additional Past Medical History / Comment(s): COPD which is been end-stage with frequent hospitalization for acute COPD exacerbation. The patient has chronic hypoxic and hypercapnic respiratory failure. 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, cervical and lumbar spine spondylosis, chronic migraines, peptic ulcer disease/gastric ulcers, carpal tunnel disease bilaterally, herniated disc at level of C5-C6 and C7, cervical cancer, depression, cachexia and malnourishment and significant loss and total body protein mass Last Myocardial Infarction Date:: UNK History of Any Multi-Drug Resistant Organisms: MRSA Date of last positivie culture/infection: 06/18/2015 MDRO Source:: SPUTUM Past Surgical History: Section, Cholecystectomy, Hysterectomy, Tubal Ligation Additional Past Surgical History / Comment(s): x 2, colonoscopy with benign polypectomy. Past Anesthesia/Blood Transfusion Reactions: No Reported Reaction Additional Past Anesthesia/Blood Transfusion Reaction / Comment(s): Pt has never recieved blood. Past Psychological History: Anxiety, Bipolar, Depression Smoking Status: Current every day smoker Past Alcohol Use History: None Reported Past Drug Use History: Marijuana - Past Family History Father Family Medical History: No Reported History Additional Family Medical History / Comment(s): WAS AN ALCOHOLIC Mother Family Medical History: Cancer Additional Family Medical History / Comment(s): AT AGE 54-BOWEL CANCER General Exam Limitations: no limitations General appearance: alert, in no apparent distress Head exam: Present: atraumatic, normocephalic, normal inspection Eye exam: Present: normal appearance, PERRL, EOMI. Absent: scleral icterus, conjunctival injection, periorbital swelling ENT exam: Present: normal exam, mucous membranes moist Neck exam: Present: normal inspection. Absent: tenderness, meningismus, lymphadenopathy Respiratory exam: Present: wheezes. Absent: respiratory distress, rales, rhonchi, stridor Cardiovascular Exam: Present: regular rate, normal rhythm, normal heart sounds. Absent: systolic murmur, diastolic murmur, rubs, gallop, clicks GI/Abdominal exam: Present: soft, normal bowel sounds. Absent: distended, tenderness, guarding, rebound, rigid Extremities exam: Present: normal inspection, full ROM, normal capillary refill. Absent: tenderness, pedal edema, joint swelling, calf tenderness Back exam: Present: normal inspection Neurological exam: Present: alert, oriented X3, CN II-XII intact Psychiatric exam: Present: normal affect, normal mood Skin exam: Present: warm, dry, intact, normal color. Absent: rash Course Vital Signs 07/06/17 07/06/17 07/06/17 14:32 14:50 15:01 Temperature 99 F Pulse Rate 130 H 108 H 104 H Respiratory 28 H Rate Blood Pressure 134/79 O2 Sat by Pulse 84 L Oximetry 07/06/17 07/06/17 07/06/17 15:21 15:27 15:34 Temperature Pulse Rate 100 92 Respiratory 22 21 Rate Blood Pressure 120/75 O2 Sat by Pulse 96 Oximetry 07/06/17 07/06/17 16:00 16:04 Temperature 98.1 F Pulse Rate 105 H 108 H Respiratory 20 Rate Blood Pressure 105/57 O2 Sat by Pulse 93 L Oximetry Medical Decision Making - Medical Decision Making Patient presents with a severe COPD exacerbation. I gave her breathing treatments and IV magnesium sulfate. She will be admitted to the hospital. - Lab Data Result diagrams: 07/06/17 14:55 07/06/17 14:55 Lab Results 07/06/17 07/06/17 07/06/17 Range/Units 14:55 14:55 14:55 WBC 16.0 H (3.8-10.6) k/uL RBC 4.76 (3.80-5.40) m/uL Hgb 13.2 (11.4-16.0) gm/dL Hct 41.3 (34.0-46.0) % MCV 86.8 (80.0-100.0) fL MCH 27.7 (25.0-35.0) pg MCHC 31.9 (31.0-37.0) g/dL RDW 17.2 H (11.5-15.5) % Plt Count 498 H (150-450) k/uL Neutrophils % 71 % Lymphocytes % 21 % Monocytes % 5 % Eosinophils % 1 % Basophils % 0 % Neutrophils # 11.4 H (1.3-7.7) k/uL Lymphocytes # 3.4 (1.0-4.8) k/uL Monocytes # 0.8 (0-1.0) k/uL Eosinophils # 0.1 (0-0.7) k/uL Basophils # 0.1 (0-0.2) k/uL Anisocytosis Slight PT 10.2 (9.0-12.0) sec INR 1.0 (<1.2) APTT 22.8 (22.0-30.0) sec Sodium 139 (137-145) mmol/L Potassium 4.0 (3.5-5.1) mmol/L Chloride 102 (98-107) mmol/L Carbon Dioxide 29 (22-30) mmol/L Anion Gap 8 mmol/L BUN 15 (7-17) mg/dL Creatinine 0.60 (0.52-1.04) mg/dL Est GFR (MDRD) Af Amer >60 (>60 ml/min/1.73 sqM) Est GFR (MDRD) Non-Af >60 (>60 ml/min/1.73 sqM) Glucose 101 H (74-99) mg/dL Calcium 9.4 (8.4-10.2) mg/dL Total Bilirubin 0.5 (0.2-1.3) mg/dL AST 14 (14-36) U/L ALT 28 (9-52) U/L Alkaline Phosphatase 87 (38-126) U/L Troponin I (0.000-0.034) ng/mL NT-Pro-B Natriuret Pep pg/mL Total Protein 6.5 (6.3-8.2) g/dL Albumin 3.8 (3.5-5.0) g/dL 07/06/17 07/06/17 Range/Units 14:55 14:55 WBC (3.8-10.6) k/uL RBC (3.80-5.40) m/uL Hgb (11.4-16.0) gm/dL Hct (34.0-46.0) % MCV (80.0-100.0) fL MCH (25.0-35.0) pg MCHC (31.0-37.0) g/dL RDW (11.5-15.5) % Plt Count (150-450) k/uL Neutrophils % % Lymphocytes % % Monocytes % % Eosinophils % % Basophils % % Neutrophils # (1.3-7.7) k/uL Lymphocytes # (1.0-4.8) k/uL Monocytes # (0-1.0) k/uL Eosinophils # (0-0.7) k/uL Basophils # (0-0.2) k/uL Anisocytosis PT (9.0-12.0) sec INR (<1.2) APTT (22.0-30.0) sec Sodium (137-145) mmol/L Potassium (3.5-5.1) mmol/L Chloride (98-107) mmol/L Carbon Dioxide (22-30) mmol/L Anion Gap mmol/L BUN (7-17) mg/dL Creatinine (0.52-1.04) mg/dL Est GFR (MDRD) Af Amer (>60 ml/min/1.73 sqM) Est GFR (MDRD) Non-Af (>60 ml/min/1.73 sqM) Glucose (74-99) mg/dL Calcium (8.4-10.2) mg/dL Total Bilirubin (0.2-1.3) mg/dL AST (14-36) U/L ALT (9-52) U/L Alkaline Phosphatase (38-126) U/L Troponin I <0.012 (0.000-0.034) ng/mL NT-Pro-B Natriuret Pep 69 pg/mL Total Protein (6.3-8.2) g/dL Albumin (3.5-5.0) g/dL 07/06/17 16:04 Twelve-lead EKG shows ventricular rate 117 bpm, normal [place] interval and QRS complex, no ST elevation or depression, interpreted by me as sinus tachycardia. Critical Care Time Critical Care Time: Yes Total Critical Care Time: 35 Disposition Clinical Impression: COPD (chronic obstructive pulmonary disease) with emphysema Disposition: ADMITTED IP TO THIS HOSP Condition: Fair Referrals: Italo John MD [Primary Care Provider] - 1-2 days
[2017-07-06] MEDS ORDERED: MAGNESIUM SULFATE-D5W PMX 1 GM in DEXTROSE/WATER 1 100ML.BAG IVPB ONE (16:16)
[2017-07-06] MEDS ORDERED: ONDANSETRON 4 MG/2 ML VIAL IVP PRN (16:19)
[2017-07-06] MEDS ORDERED: Acetaminophen-Codeine 300-30mg TAB PO PRN (16:19)
[2017-07-06] MEDS ORDERED: NALOXONE 0.4 MG/ML 1 ML VIAL IV PRN (16:19)
[2017-07-06] MEDS: MORPHINE SULFATE 10 MG/ML SYRINGE IV PRN ×2 (18:24→22:45)
[2017-07-06] MEDS: IPRATROPIUM-ALBUTEROL 3 ML NEB INHALATION SCH (19:08)
[2017-07-06] MEDS: SYMBICORT 160-4.5 MCG INHALER INHALATION SCH (19:09)
[2017-07-06] MEDS: PREGABALIN 100 MG CAP PO SCH (22:44)
[2017-07-06] MEDS: traZODone HCL 100 MG TAB PO SCH (22:46)
[2017-07-06] MEDS: THEOPHYLLINE 24 HOUR 200 MG CAP.ER.24H PO SCH (22:46)
[2017-07-06] MEDS: ASPIRIN 325 MG TAB PO SCH (22:47)
[2017-07-06] MEDS: risperiDONE 1 MG TAB PO SCH (22:47)
[2017-07-06] MEDS: FAMOTIDINE 20 MG TAB PO SCH (22:48)
[2017-07-06] MEDS: ALBUTEROL NEBULIZED 2.5 MG/3 ML INHALATION PRN (23:21)
[2017-07-07] MEDS: methylPREDNISolone SOD SUCCI 125 MG/2 ML VIAL IV SCH ×5 (00:03→23:22)
[2017-07-07] MEDS: MORPHINE SULFATE 10 MG/ML SYRINGE IV PRN ×2 (03:17→07:35)
[2017-07-07] MEDS: ALBUTEROL NEBULIZED 2.5 MG/3 ML INHALATION PRN (04:04)
[2017-07-07] MEDS: IPRATROPIUM-ALBUTEROL 3 ML NEB INHALATION SCH ×4 (07:09→19:29)
[2017-07-07] MEDS: SYMBICORT 160-4.5 MCG INHALER INHALATION SCH (07:09)
[2017-07-07] MEDS: PREGABALIN 100 MG CAP PO SCH ×2 (07:38→22:05)
[2017-07-07] MEDS ORDERED: NON-FORMULARY DRUG (Tiotropium 18 Mcg/Puff 1 CAP) INHALATION SCH (08:00)
[2017-07-07] MEDS: FAMOTIDINE 20 MG TAB PO SCH ×2 (08:20→22:04)
[2017-07-07] MEDS: THEOPHYLLINE 24 HOUR 200 MG CAP.ER.24H PO SCH ×2 (08:20→22:05)
[2017-07-07] MEDS: MAGNESIUM OXIDE 400 MG TAB PO SCH (08:20)
[2017-07-07] MEDS ORDERED: predniSONE 20 MG TAB PO SCH (09:00)
[2017-07-07] MEDS ORDERED: buPROPion SR 150 MG TABLET.ER PO SCH (09:00)
[2017-07-07 09:59] LABS: Anisocytosis Slight; Basophils % (A) 0 %; CH 27.3; CHCM 30.8; Eosinophils % (A) 0 %; HCT 39.5 % (34.0-46.0); HDW 2.43; HGB 12.1 gm/dL (11.4-16.0); Hypochromasia Slight; Luc # (Auto) 0.03; Luc % (Auto) 0; Lymphocytes # (A) 0.7 k/uL (1.0-4.8); Lymphocytes % (A) 4 %; MCH 27.4 pg (25.0-35.0); MCHC 30.7 g/dL (31.0-37.0); MCV 89.2 fL (80.0-100.0); Mean Platelet Volume 6.9; Monocytes # (A) 0.4 k/uL (0-1.0); Monocytes % (A) 2 %; Neutrophils # (A) 15.8 k/uL (1.3-7.7); Neutrophils % (A) 93 %; RBC 4.43 m/uL (3.80-5.40); RDW 16.7 % (11.5-15.5)
[2017-07-07 10:04] LABS: Anion Gap 8 mmol/L; Blood Urea Nitrogen 17 mg/dL (7-17); Calcium 9.6 mg/dL (8.4-10.2); Carbon Dioxide 30 mmol/L (22-30); Chloride 101 mmol/L (98-107); Glucose 231 mg/dL (74-99); Magnesium 2.1 mg/dL (1.6-2.3); Non-African American GFR(MDRD) >60 (>60 ml/min/1.73 sqM); Potassium 4.6 mmol/L (3.5-5.1); Sodium 139 mmol/L (137-145)
--- NOTE | 2017-07-07 10:21 | P.HPIM ---
History of Present Illness 46-year-old female presented to family practice physician Dr. Italo John 2016 with complaints of increasing shortness of breath fever and congested cough. A pulse oximetry noted to be 80% on 5 L of oxygen. Patient was escorted the emergency room and admitted for COPD pneumonia. Dr. Molina to follow Review of Systems Constitutional: Reports fatigue, Reports fever, Reports weakness Respiratory: Reports cough, Reports dyspnea, Reports pain, Reports pain on inspiration Past Medical History Past Medical History: Asthma, Cancer, Chest Pain / Angina, COPD, GERD/Reflux, Hyperlipidemia, Osteoarthritis (OA) Additional Past Medical History / Comment(s): COPD which is been end-stage with frequent hospitalization for acute COPD exacerbation. The patient has chronic hypoxic and hypercapnic respiratory failure. The patient is 02 dependent at L/ m nasal cannula,L advanced COPD , cervical and lumbar spine spondylosis, chronic migraines, peptic ulcer disease/gastric ulcers, carpal tunnel disease bilaterally, herniated disc at level of C5-C6 and C7, cervical cancer, depression. Last Myocardial Infarction Date:: UNK History of Any Multi-Drug Resistant Organisms: MRSA Date of last positivie culture/infection: 06/18/2015 MDRO Source:: SPUTUM Past Surgical History: Section, Cholecystectomy, Hysterectomy, Tubal Ligation Additional Past Surgical History / Comment(s): x 2, colonoscopy with benign polypectomy. Past Anesthesia/Blood Transfusion Reactions: No Reported Reaction Additional Past Anesthesia/Blood Transfusion Reaction / Comment(s): Pt has never recieved blood. Smoking Status: Current every day smoker - Past Family History Father Family Medical History: No Reported History Additional Family Medical History / Comment(s): WAS AN ALCOHOLIC Mother Family Medical History: Cancer Additional Family Medical History / Comment(s): AT AGE 54-BOWEL CANCER Medications and Allergies Home Medications Medication Instructions Recorded Confirmed Type Albuterol Inhaler [Ventolin Hfa 2 puff INHALATION RT-QID PRN 01/03/14 07/06/17 History Inhaler] Omeprazole [PriLOSEC] 40 mg PO BID 01/03/14 07/06/17 History Multivitamins, Thera [Multivitamin 1 tab PO DAILY 12/24/14 07/06/17 History (formulary)] risperiDONE 3 mg PO HS 12/24/14 07/06/17 History traZODone HCL 300 mg PO HS 12/24/14 07/06/17 History buPROPion SR [Wellbutrin SR] 150 mg PO HS 04/30/15 07/07/17 History Aspirin [Aspirin EC] 325 mg PO HS 03/24/16 07/06/17 History Budesonide-Formot 160-4.5 Mcg 2 puff INHALATION RT-BID puff 07/13/16 07/06/17 Rx [Symbicort 160-4.5 Mcg Inhaler] rOPINIRole HCL 1 mg PO HS 07/18/16 07/06/17 History Pregabalin [Lyrica] 100 mg PO BID 10/31/16 07/06/17 History predniSONE 20 mg PO DAILY #0 11/26/16 07/06/17 Rx Magnesium Oxide [Mag-Ox] 400 mg PO DAILY 12/26/16 07/06/17 History Ipratropium-Albuterol Nebulize 3 ml INHALATION RT-QID neb 01/20/17 07/06/17 Rx [Duoneb 0.5 mg-3 mg/3 ml Soln] Hydrocodone/Acetaminophen [[place] 1 tab PO Q6H PRN 04/26/17 07/06/17 History 7.5-325] Theophylline 24 Hour [Akhil-24] 200 mg PO BID 07/06/17 07/06/17 History Tiotropium 18 Mcg/Puff [Spiriva] 1 cap INHALATION RT-DAILY 07/06/17 07/06/17 History Umeclidinium [place] [Incruse 1 puff INHALATION RT-DAILY 07/06/17 07/06/17 History Ellipta] Allergies Allergy/AdvReac Type Severity Reaction Status Date / Time aripiprazole [From Abilify] Allergy Rash/Hives Verified 07/06/17 16:09 cephalexin [From Keflex] Allergy Unknown Verified 07/06/17 16:09 honey Allergy Rash/Hives Verified 07/06/17 16:09 methadone [Methadone] Allergy Itching Verified 07/06/17 16:09 naproxen Allergy Rash/Hives Verified 07/06/17 16:09 sulfamethoxazole Allergy Rash/Hives Verified 07/06/17 16:09 [From Bactrim] tetracycline [Tetracycline] Allergy Rash/Hives Verified 07/06/17 16:09 trimethoprim [From Bactrim] Allergy Rash/Hives Verified 07/06/17 16:09 adhesive tape AdvReac Rash/Hives Verified 07/06/17 16:09 tramadol HCl [From Ultram] AdvReac SEIZURES Verified 07/06/17 16:09 tromethamine AdvReac Nausea & Verified 07/06/17 16:09 Vomiting Physical Exam Vitals: Vital Signs Temp Pulse Pulse Resp BP BP Pulse Ox 07/07/17 07:19 112 H 07/07/17 07:09 108 H 07/07/17 07:00 97.9 F 97 20 134/96 95 07/07/17 04:15 100 07/07/17 04:04 104 H 07/06/17 23:45 100 07/06/17 23:21 108 H 07/06/17 23:20 89 18 119/70 07/06/17 21:40 98.7 F 105 H 22 135/88 85 L 07/06/17 20:30 93 24 101/69 94 L 07/06/17 19:30 98 07/06/17 19:14 102 H 07/06/17 18:56 96 22 126/77 95 07/06/17 18:37 98 24 94 L 07/06/17 18:00 103 H 20 104/67 83 L 07/06/17 16:04 108 H 07/06/17 16:00 98.1 F 105 H 20 105/57 93 L 07/06/17 15:34 92 21 120/75 96 07/06/17 15:27 100 07/06/17 15:21 22 07/06/17 15:01 104 H 07/06/17 14:50 108 H 07/06/17 14:32 99 F 130 H 28 H 134/79 84 L Intake and Output 07/06/17 07/07/17 07/07/17 22:59 06:59 14:59 Intake Total 20 Balance 20 Intake: Amount of Fluid Infused ( 20 ml) Other: Voiding Method Bedside Commode # Voids 0 - Constitutional General appearance: mild distress, thin - EENT Eyes: PERRLA Ears: bilateral: normal - Neck Neck: normal ROM - Respiratory Congestive cough Respiratory: bilateral: diminished - Cardiovascular Rhythm: regular - Gastrointestinal General gastrointestinal: soft - Integumentary Integumentary: normal - Neurologic Neurologic: CNII-XII intact - Musculoskeletal Musculoskeletal: generalized weakness - Psychiatric Psychiatric: A&O x's 3, appropriate affect, intact judgment & insight Results CBC & Chem 7: 07/07/17 09:40 07/07/17 09:40 Labs: Abnormal Lab Results - Last 24 Hours (Table) 07/06/17 07/06/17 07/07/17 Range/Units 14:55 14:55 09:40 WBC 16.0 H 17.0 H (3.8-10.6) k/uL MCHC 30.7 L (31.0-37.0) g/dL RDW 17.2 H 16.7 H (11.5-15.5) % Plt Count 498 H 482 H (150-450) k/uL Neutrophils # 11.4 H 15.8 H (1.3-7.7) k/uL Lymphocytes # 0.7 L (1.0-4.8) k/uL Creatinine (0.52-1.04) mg/dL Glucose 101 H (74-99) mg/dL 07/07/17 Range/Units 09:40 WBC (3.8-10.6) k/uL MCHC (31.0-37.0) g/dL RDW (11.5-15.5) % Plt Count (150-450) k/uL Neutrophils # (1.3-7.7) k/uL Lymphocytes # (1.0-4.8) k/uL Creatinine 0.41 L (0.52-1.04) mg/dL Glucose 231 H (74-99) mg/dL Chest x-ray: report reviewed Thrombosis Risk Factor Assmnt - Choose All That Apply Any of the Below Risk Factors Present?: Yes Each Factor Represents 1 point: Abnormal pulmonary function (COPD), Age 41-60 years Other Risk Factors: Yes Each Risk Factor Represents 2 Points: Malignancy Other congenital or acquired thrombophilia - If yes, enter type in comment: No Thrombosis Risk Factor Assessment Total Risk Factor Score: 4 Thrombosis Risk Factor Assessment Level: Moderate Risk Assessment and Plan Assessment: Assessment COPD acute on chronic end-stage hypoxic hypercapnic on 5 L of oxygen at home Pneumonia left upper lobe History of opioid dependence with degenerative disc disease osteoarthritis History of migraines Hyperlipidemia GERD Cachexia malnourished significant total body protein loss Plan Levaquin initiated on steroids bronchodilators BiPAP machine in room on standby
[2017-07-07] MEDS: LEVOFLOXACIN 500MG-D5W PMX 500 MG in DEXTROSE/WATER 1 100ML.BAG IVPB SCH (10:49)
[2017-07-07] MEDS: MORPHINE SULFATE 4 MG/ML SYRINGE IV PRN ×4 (11:01→23:22)
[2017-07-07 11:38] VITALS: BMI 18.8
[2017-07-07 12:31] LABS: Glucose,Whole Blood 143 mg/dL (75-99)
[2017-07-07] MEDS: INSULIN ASPART 100 UNIT/ML 1 ML 10 ML VIAL SQ SCH ×3 (13:33→22:04)
--- NOTE | 2017-07-07 13:45 | CDI ---
In responding to this query, please exercise your independent professional judgment. The [facility] Coding Staff and Clinical Documentation Specialists appreciate your assistance in clarifying documentation, maintaining compliance with coding guidelines, accurately documenting patients condition and capturing severity of illness. The fact that a question is asked does not imply that any particular answer is desired or expected. Communication forms are a method of clarifying documentation and are not made part of the Legal Health Record. Thank you in advance for your clarification. Last Revision, June 2015 Pietro Estrada [address] [place] [address] Documentation Clarification Form Date: 07/07/2017 1:36:00 PM From: Roxanna Hernandez RN, CCDS Admit Date: 07/06/2017 4:19:00 PM Patient Name: Ameena Shaw Visit Number: [id number] Dr. Italo John/Yanci HAND Malnutrition has been documented in H&P. History/Risk Factors: End Stage COPD on home O2, pneumonia, opiod dependence, Gerd Clinical Indicators: 07/07 H&P: "Cachexia malnourished significant total body protein loss." Labs: Albumin/ Pre albumin/Total Protein: Current BMI: 18.9 Treatment: Dietary Consult: Completed 07/07 Supplements: Endure Compact TID with Meals Lab monitoring: Am Daily In your professional opinion, can you please clarify if these findings signify one of the following conditions? Mild Protein-Calorie Malnutrition Moderate Protein-Calorie Malnutrition Severe Protein-Calorie Malnutrition Other condition, please specify Unable to determine Please document in your progress notes and discharge summary in order to capture severity of illness and risk of mortality. Include clinical findings that support your diagnosis. FYI: Press F11 to launch patient chart. MTDD
--- NOTE | 2017-07-07 14:04 | CDI ---
In responding to this query, please exercise your independent professional judgment. The [facility] Coding Staff and Clinical Documentation Specialists appreciate your assistance in clarifying documentation, maintaining compliance with coding guidelines, accurately documenting patients condition and capturing severity of illness. The fact that a question is asked does not imply that any particular answer is desired or expected. Communication forms are a method of clarifying documentation and are not made part of the Legal Health Record. Thank you in advance for your clarification. Last Revision, October 2015 Pietro Estrada [address] [facility] [place] [address] Documentation Clarification Form Date: 07/07/2017 1:52:00 PM From: Roxanna Hernandez RN, CCDS Admit Date: 07/06/2017 4:19:00 PM Patient Name: Ameena Shaw Visit Number: [id number] Dr. Italo John/ Yanci HAND History/Risk Factors: Chief C/O SOB, COPD end stage, Pneumonia, malnourishment Tobacco use: Current every day smoker Home oxygen: 5L Nasal Cannula Clinical Indicators: 07/07 H&P: "COPD acute on chronic end-stage hypoxic hypercapnic on 5 L of oxygen at home." Vital signs/Pulse oximetry: Temp 99, HR 130, RR 28, B/P 134/79, Spo2 84% 5L NC Lung/Breathing assessment: Congestive cough Respiratory: bilateral: diminished Treatment: Breathing TX: Ventolin INH QIF PRN, Duoneb INH QID, Pulmicort INH BID, Performamist BID IV Solumedrol IV Levaquin 500 mg IVPB Q 24 hrs Continuous Pulse ox: per unit protocol O2: 100% NRB weaned to 6L NC In your professional opinion, can you please clarify if these findings signify one of the following conditions? Acuity: o Acute on Chronic Respiratory Status: o Respiratory failure with hypercapnia o Respiratory failure with hypoxia o Other Diagnosis, please specify o Unable to determine Please document in your progress notes and discharge summary in order to capture severity of illness and risk of mortality. Include clinical findings that support your diagnosis. FYI: Press F11 to launch patient chart. MTDD
--- NOTE | 2017-07-07 14:05 | P.CNPUL ---
History of Present Illness Consult date: 07/07/17 Reason for consult: dyspnea, COPD, hypoxemia Chief complaint: Low-grade fever, back pain, increased chest congestion or shortness of joe History of present illness: Ameena is a 46-year-old white female patient who sees Dr. Molina in our office for her history of severe oxygen-dependent COPD, gold stage IV, with history of multiple frequent hospitalizations for pulmonary infections and COPD exacerbation. She was last hospitalized for COPD exacerbation in April and discharged home on 04/29/2017. The baseline FEV1 is 27% of the predicted value , she has a AVAPS machine at home. Unfortunately despite her severe limitation in her pulmonary function and exercise capacity, she continues to smoke, currently pack a day. Her other medical history includes asthma, hyperlipidemia , osteoarthritis, cervical and lumbar spine spondylosis, chronic migraines, GERD , cervical cancer, depression and cachexia. Yesterday she went to see Dr. Italo John, her primary care physician, for her increasing shortness of breath , left back pain, low-grade fever, increased chest congestion, increased wheezing and increased dyspnea. Pulse oximetry was noted to be 80% on 5 L of oxygen. Patient was escorted to the emergency room and admitted to the medical surgical floor. Chest x-ray from 07/06/2017 has been reviewed by Dr. Lino and shows a nodular area of infiltrate in the left upper lobe, possibly pneumonia versus an underlying neoplasm. Hyperinflation consistent with COPD, no evidence of heart failure, arthropathy of the shoulders noted. On presentation, there is evidence of leukocytosis with WBCs at 16, no significant electrolyte abnormality, no coagulopathy, troponin was negative 1, proBNP negative at 69. Patient was tachycardic on presentation with a heart rate in the 1:30 BPM, low-grade fever at 99F, respirations labored and tachypneic at 28 breaths per minute. Patient was initiated on high-dose IV steroids, Symbicort and DuoNeb nebulized treatments, and IV Levaquin for empiric antibiotic coverage. On examination, patient is seen resting in bed, short of breath with normal conversation, currently on 6 L per nasal cannula with O2 sat at 95%. No episodes of fevers since admission. She is slightly less tachycardic with a heart rate in the 108 BPM. Her lung sounds severely diminished, with limited airflow, a few end expiratory wheezing, and scattered rhonchi. Review of Systems All systems: negative Constitutional: Denies chills, Denies fever Eyes: denies blurred vision, denies pain Ears, nose, mouth and throat: Denies headache, Denies sore throat Cardiovascular: Denies chest pain, Denies shortness of breath Respiratory: Denies cough Gastrointestinal: Denies abdominal pain, Denies diarrhea, Denies nausea, Denies vomiting Genitourinary: Denies dysuria, Denies hematuria Musculoskeletal: Denies myalgias Integumentary: Denies pruritus, Denies rash Neurological: Denies numbness, Denies weakness Psychiatric: Denies anxiety, Denies depression Endocrine: Denies fatigue, Denies weight change Past Medical History Past Medical History: Asthma, Cancer, Chest Pain / Angina, COPD, GERD/Reflux, Hyperlipidemia, Osteoarthritis (OA) Additional Past Medical History / Comment(s): COPD which is been end-stage with frequent hospitalization for acute COPD exacerbation. The patient has chronic hypoxic and hypercapnic respiratory failure. The patient is 02 dependent at L/ m nasal cannula,L advanced COPD , cervical and lumbar spine spondylosis, chronic migraines, peptic ulcer disease/gastric ulcers, carpal tunnel disease bilaterally, herniated disc at level of C5-C6 and C7, cervical cancer, depression. Last Myocardial Infarction Date:: UNK History of Any Multi-Drug Resistant Organisms: MRSA Date of last positivie culture/infection: 06/18/2015 MDRO Source:: SPUTUM Past Surgical History: Section, Cholecystectomy, Hysterectomy, Tubal Ligation Additional Past Surgical History / Comment(s): x 2, colonoscopy with benign polypectomy. Past Anesthesia/Blood Transfusion Reactions: No Reported Reaction Additional Past Anesthesia/Blood Transfusion Reaction / Comment(s): Pt has never recieved blood. Smoking Status: Current every day smoker - Past Family History Father Family Medical History: No Reported History Additional Family Medical History / Comment(s): WAS AN ALCOHOLIC Mother Family Medical History: Cancer Additional Family Medical History / Comment(s): AT AGE 54-BOWEL CANCER Medications and Allergies Home Medications Medication Instructions Recorded Confirmed Type Albuterol Inhaler [Ventolin Hfa 2 puff INHALATION RT-QID PRN 01/03/14 07/06/17 History Inhaler] Omeprazole [PriLOSEC] 40 mg PO BID 01/03/14 07/06/17 History Multivitamins, Thera [Multivitamin 1 tab PO DAILY 12/24/14 07/06/17 History (formulary)] risperiDONE 3 mg PO HS 12/24/14 07/06/17 History traZODone HCL 300 mg PO HS 12/24/14 07/06/17 History buPROPion SR [Wellbutrin SR] 150 mg PO HS 04/30/15 07/07/17 History Aspirin [Aspirin EC] 325 mg PO HS 03/24/16 07/06/17 History Budesonide-Formot 160-4.5 Mcg 2 puff INHALATION RT-BID puff 07/13/16 07/06/17 Rx [Symbicort 160-4.5 Mcg Inhaler] rOPINIRole HCL 1 mg PO HS 07/18/16 07/06/17 History Pregabalin [Lyrica] 100 mg PO BID 10/31/16 07/06/17 History predniSONE 20 mg PO DAILY #0 11/26/16 07/06/17 Rx Magnesium Oxide [Mag-Ox] 400 mg PO DAILY 12/26/16 07/06/17 History Ipratropium-Albuterol Nebulize 3 ml INHALATION RT-QID neb 01/20/17 07/06/17 Rx [Duoneb 0.5 mg-3 mg/3 ml Soln] Hydrocodone/Acetaminophen [[place] 1 tab PO Q6H PRN 04/26/17 07/06/17 History 7.5-325] Theophylline 24 Hour [Akhil-24] 200 mg PO BID 07/06/17 07/06/17 History Tiotropium 18 Mcg/Puff [Spiriva] 1 cap INHALATION RT-DAILY 07/06/17 07/06/17 History Umeclidinium [place] [Incruse 1 puff INHALATION RT-DAILY 07/06/17 07/06/17 History Ellipta] Allergies Allergy/AdvReac Type Severity Reaction Status Date / Time aripiprazole [From Abilify] Allergy Rash/Hives Verified 07/06/17 16:09 cephalexin [From Keflex] Allergy Unknown Verified 07/06/17 16:09 honey Allergy Rash/Hives Verified 07/06/17 16:09 methadone [Methadone] Allergy Itching Verified 07/06/17 16:09 naproxen Allergy Rash/Hives Verified 07/06/17 16:09 sulfamethoxazole Allergy Rash/Hives Verified 07/06/17 16:09 [From Bactrim] tetracycline [Tetracycline] Allergy Rash/Hives Verified 07/06/17 16:09 trimethoprim [From Bactrim] Allergy Rash/Hives Verified 07/06/17 16:09 adhesive tape AdvReac Rash/Hives Verified 07/06/17 16:09 tramadol HCl [From Ultram] AdvReac SEIZURES Verified 07/06/17 16:09 tromethamine AdvReac Nausea & Verified 07/06/17 16:09 Vomiting Physical Exam Vitals: Vital Signs Temp Pulse Pulse Resp BP BP Pulse Ox 07/07/17 11:11 100 07/07/17 11:01 100 07/07/17 07:19 112 H 07/07/17 07:09 108 H 07/07/17 07:00 97.9 F 97 20 134/96 95 07/07/17 04:15 100 07/07/17 04:04 104 H 07/06/17 23:45 100 07/06/17 23:21 108 H 07/06/17 23:20 89 18 119/70 07/06/17 21:40 98.7 F 105 H 22 135/88 85 L 07/06/17 20:30 93 24 101/69 94 L 07/06/17 19:30 98 07/06/17 19:14 102 H 07/06/17 18:56 96 22 126/77 95 07/06/17 18:37 98 24 94 L 07/06/17 18:00 103 H 20 104/67 83 L 07/06/17 16:04 108 H 07/06/17 16:00 98.1 F 105 H 20 105/57 93 L 07/06/17 15:34 92 21 120/75 96 07/06/17 15:27 100 07/06/17 15:21 22 07/06/17 15:01 104 H 07/06/17 14:50 108 H 07/06/17 14:32 99 F 130 H 28 H 134/79 84 L Intake and Output 07/06/17 07/07/17 07/07/17 22:59 06:59 14:59 Intake Total 20 360 Balance 20 360 Intake: Amount of Fluid Infused ( 20 ml) Oral 360 Other: Voiding Method Bedside Commode # Voids 0 Weight 49.895 kg Patient Weight 07/08/17 06:59 Weight 49.895 kg 46-year-old cachectic white female, appears much older than stated age, short of breath with normal conversation, seen resting in bed - Constitutional General appearance: mild distress, thin - EENT Eyes: PERRLA ENT: NA/AT, normal oropharynx Ears: bilateral: normal - Neck Neck: no lymphadenopathy Carotids: bilateral: upstroke normal Thyroid: bilateral: normal size - Respiratory Respiratory: bilateral: diminished, wheezing, prolonged expiration - Cardiovascular Rhythm: regular Heart sounds: normal: S1, S2 ankle Peripheral Edema: absent: None foot Peripheral Edema: absent: None - Gastrointestinal General gastrointestinal: no organomegaly, soft, no tenderness - Integumentary Integumentary: normal turgor - Neurologic Neurologic: CNII-XII intact - Musculoskeletal Musculoskeletal: strength equal bilaterally - Psychiatric Psychiatric: A&O x's 3, appropriate affect, intact judgment & insight Results - Laboratory Findings CBC and BMP: 07/07/17 09:40 07/07/17 09:40 PT/INR, D-dimer PT 10.2 sec (9.0-12.0) 07/06/17 14:55 INR 1.0 (<1.2) 07/06/17 14:55 Abnormal lab findings: Abnormal Labs 07/06/17 07/06/17 07/07/17 14:55 14:55 09:40 WBC 16.0 H 17.0 H MCHC 30.7 L RDW 17.2 H 16.7 H Plt Count 498 H 482 H Neutrophils # 11.4 H 15.8 H Lymphocytes # 0.7 L Creatinine Glucose 101 H POC Glucose (mg/dL) 07/07/17 07/07/17 09:40 12:26 WBC MCHC RDW Plt Count Neutrophils # Lymphocytes # Creatinine 0.41 L Glucose 231 H POC Glucose (mg/dL) 143 H - Diagnostic Findings Chest x-ray: pending Assessment and Plan Plan: Assessment: #1. Acute on chronic hypoxic and hypercapnic respiratory failure secondary to left upper lobe pneumonia, acute COPD exacerbation #2. End-stage oxygen-dependent COPD, GOLD stage IV, baseline FEV1 is 27% of the predicted value, on home oxygen and home AVAPS machine. History of multiple hospitalizations for exacerbation of COPD and pulmonary infections. #3. Chronic nicotine dependence, ongoing #4. Cachectic/catabolic state secondary to advanced COPD #5. Cervical spondylosis with lumbar spine spondylosis #6. Peptic ulcer disease #7. History of MRSA pneumonia #8. Chronic migraines #9. History of depression #10. History of opioid dependence with degenerative disc disease osteoarthritis #11. Hyperlipidemia Plan Continue IV Levaquin, continue IV Solu-Medrol, we'll switch Symbicort inhaler to Pulmicort 1 mg twice a day nebulized treatments, and for Formaterol 20 mics nebulized treatments twice a day. Continue DuoNeb 4 times a day and when necessary. Obtain sputum sample. BiPAP support at bedtime with pressures of 12 and 5 and FiO2 to keep SpO2 at 92%. Patient will need follow-up chest x-ray to evaluate the left upper lobe pneumonia versus neoplasm. This was discussed with the patient. Smoking cessation was strongly encouraged. Further recommendations to follow. I performed a history & physical examination of the patient and discussed their management with my nurse practitioner, Elida Agarwal. I reviewed the nurse practitioner's note and agree with the documented findings and plan of care. Lung sounds are extremely diminished, with very limited airflow, tight end expiratory wheezes. The findings and the impression was discussed with the patient. I attest to the documentation by the nurse practitioner. Time with Patient: Greater than 30
--- NOTE | 2017-07-07 14:11 | CDI ---
In responding to this query, please exercise your independent professional judgment. The [facility] Coding Staff and Clinical Documentation Specialists appreciate your assistance in clarifying documentation, maintaining compliance with coding guidelines, accurately documenting patients condition and capturing severity of illness. The fact that a question is asked does not imply that any particular answer is desired or expected. Communication forms are a method of clarifying documentation and are not made part of the Legal Health Record. Thank you in advance for your clarification. Last Revision, November 2016 Pietro Estrada [address] [facility] [place] [address] Documentation Clarification Form Date: 07/07/2017 2:04:00 PM From: Roxanna Hernandez RN, CCDS Admit Date: 07/06/2017 4:19:00 PM Patient Name: Ameena Shaw Visit Number: [id number] Dr. Italo John/Yanci Mims History/Risk Factors: end stage COPD, home o2, cachexia, GERD Clinical Indicators: H&P: "Pneumonia left upper lobe." WBC: 16/17 Left Shift : 11.4/15.8 Vitals signs on admission: Temp 99, HR 130, RR 28, B/P 134/70, Spo2 84% 5L NC Other Clinical Indicators: Treatment: Antibiotics: Levaquin 500 mg IVPB Q 24 hrs IV Bolus:0 In your professional opinion, please clarify if these findings signify one of the following conditions, whether the condition is POA, and cause, if known: Sepsis Severe Sepsis Septic Shock Unable to determine Other, please specify Present on Admission: Yes No * Identify the (suspected) organism * Link or clarify if there is associated (due to/with): - Organ failure - Shock SIRS Criteria: 2 or more of the following may indicate SIRS Temperature < 96.8F(36C) or > 101.0F (38C) Heart Rate > 90 bpm Respiratory Rate > 20 breaths/min or PaCO2 < 32 mmHg White Blood Cell Count > 12,000 or < 4,000 cells/mm3 or > 10% bands Lactate >2.0 mmol/L (>4.0 is equivalent to septic shock) Please document in your progress notes and discharge summary in order to capture severity of illness and risk of mortality. Include clinical findings that support your diagnosis. FYI: Press F11 to launch patient chart. MTDD
[2017-07-07 17:21] LABS: Glucose,Whole Blood 151 mg/dL (75-99)
[2017-07-07] MEDS: BUDESONIDE 1 MG/2 ML NEBU INHALATION SCH (19:29)
[2017-07-07] MEDS: FORMOTEROL FUMARATE 20 MCG/2 ML NEBU INHALATION SCH (19:29)
[2017-07-07 21:14] LABS: Glucose,Whole Blood 187 mg/dL (75-99)
[2017-07-07] MEDS: buPROPion SR 150 MG TABLET.ER PO SCH (22:05)
[2017-07-07] MEDS: ASPIRIN 325 MG TAB PO SCH (22:14)
[2017-07-07] MEDS: risperiDONE 1 MG TAB PO SCH (22:14)
[2017-07-07] MEDS: traZODone HCL 100 MG TAB PO SCH (22:15)
[2017-07-08] MEDS: ALBUTEROL NEBULIZED 2.5 MG/3 ML INHALATION PRN ×3 (02:29→23:49)
[2017-07-08] MEDS: MORPHINE SULFATE 4 MG/ML SYRINGE IV PRN ×5 (03:35→20:14)
[2017-07-08] MEDS: methylPREDNISolone SOD SUCCI 125 MG/2 ML VIAL IV SCH ×3 (05:47→17:21)
[2017-07-08 07:20] LABS: Glucose,Whole Blood 141 mg/dL (75-99)
[2017-07-08] MEDS: PREGABALIN 100 MG CAP PO SCH ×2 (07:33→21:57)
[2017-07-08] MEDS: FAMOTIDINE 20 MG TAB PO SCH ×2 (07:33→20:14)
[2017-07-08] MEDS: THEOPHYLLINE 24 HOUR 200 MG CAP.ER.24H PO SCH ×2 (07:33→20:14)
[2017-07-08] MEDS: MAGNESIUM OXIDE 400 MG TAB PO SCH (07:33)
[2017-07-08] MEDS: INSULIN ASPART 100 UNIT/ML 1 ML 10 ML VIAL SQ SCH ×4 (07:39→21:55)
[2017-07-08] MEDS: IPRATROPIUM-ALBUTEROL 3 ML NEB INHALATION SCH ×4 (08:24→19:17)
[2017-07-08] MEDS: FORMOTEROL FUMARATE 20 MCG/2 ML NEBU INHALATION SCH ×2 (08:24→19:17)
[2017-07-08] MEDS: BUDESONIDE 1 MG/2 ML NEBU INHALATION SCH ×2 (08:24→19:17)
--- NOTE | 2017-07-08 11:03 | P.PN ---
Subjective Progress Note Date: 07/08/17 Principal diagnosis: Acute exacerbation of chronic obstructive pulmonary disease, acute on chronic back pain. Ameena is a 46-year-old white female patient who sees Dr. Molina in our office for her history of severe oxygen-dependent COPD, gold stage IV, with history of multiple frequent hospitalizations for pulmonary infections and COPD exacerbation. She was last hospitalized for COPD exacerbation in April and discharged home on 04/29/2017. The baseline FEV1 is 27% of the predicted value , she has a AVAPS machine at home. Unfortunately despite her severe limitation in her pulmonary function and exercise capacity, she continues to smoke, currently pack a day. Her other medical history includes asthma, hyperlipidemia , osteoarthritis, cervical and lumbar spine spondylosis, chronic migraines, GERD , cervical cancer, depression and cachexia. Yesterday she went to see Dr. Italo John, her primary care physician, for her increasing shortness of breath , left back pain, low-grade fever, increased chest congestion, increased wheezing and increased dyspnea. Pulse oximetry was noted to be 80% on 5 L of oxygen. Patient was escorted to the emergency room and admitted to the medical surgical floor. Chest x-ray from 07/06/2017 has been reviewed by Dr[address] Lino and shows a nodular area of infiltrate in the left upper lobe, possibly pneumonia versus an underlying neoplasm. Hyperinflation consistent with COPD, no evidence of heart failure, arthropathy of the shoulders noted. On presentation, there is evidence of leukocytosis with WBCs at 16, no significant electrolyte abnormality, no coagulopathy, troponin was negative 1, proBNP negative at 69. Patient was tachycardic on presentation with a heart rate in the 1:30 BPM, low-grade fever at 99F, respirations labored and tachypneic at 28 breaths per minute. Patient was initiated on high-dose IV steroids, Symbicort and DuoNeb nebulized treatments, and IV Levaquin for empiric antibiotic coverage. On examination, patient is seen resting in bed, short of breath with normal conversation, currently on 6 L per nasal cannula with O2 sat at 95%. No episodes of fevers since admission. She is slightly less tachycardic with a heart rate in the 108 BPM. Her lung sounds severely diminished, with limited airflow, a few end expiratory wheezing, and scattered rhonchi. The patient is seen again today 07/08/2017 in follow-up on the regular medical floor. She is awake and alert in no acute distress. She is breathing easier today as compared to yesterday but not quite back to her baseline. She is maintaining O2 saturations in the 90s on 6 L/m per nasal cannula. She's been afebrile. Hemodynamically stable. Sputum culture is pending. Objective - Vital Signs Vital signs: Vital Signs Temp 98.3 F 07/08/17 07:00 Pulse 92 07/08/17 08:40 Resp 20 07/08/17 07:00 BP 110/63 07/08/17 07:00 Pulse Ox 96 07/08/17 07:00 Intake & Output 07/07/17 07/08/17 07/08/17 18:59 06:59 18:59 Intake Total 580 Balance 580 Weight 49.895 kg Intake: Intake, IV Titration 100 Amount Levofloxacin 500Mg-D5w 100 Pmx 500 mg In Dextrose/ Water 1 100ml.bag @ 100 mls/hr IVPB Q24H [facility] Rx#: [id number] Oral 480 Other: Voiding Method Bedside Commode Bedside Commode # Voids 4 1 - Exam GENERAL EXAM: Frail, cachectic. Appears older than stated age. Fairly comfortable in no apparent distress. HEAD: Normocephalic. EYES: Normal reaction of pupils, equal size. NOSE: Clear with pink turbinates. THROAT: No erythema or exudates. NECK: No masses, no JVD. CHEST: No chest wall deformity. LUNGS: Equal air entry with end expiratory wheeze. Diminished throughout. CVS: S1 and S2 normal with no audible murmur, regular rhythm. ABDOMEN: No hepatosplenomegaly, normal bowel sounds, no guarding or rigidity. SPINE: No scoliosis or deformity SKIN: No rashes CENTRAL NERVOUS SYSTEM: No focal deficits, tone is normal in all 4 extremities. EXTREMITIES: There is no peripheral edema. No clubbing, no cyanosis. Peripheral pulses are intact. - Labs CBC & Chem 7: 07/07/17 09:40 07/07/17 09:40 Labs: Abnormal Lab Results - Last 24 Hours (Table) 07/07/17 07/07/17 07/07/17 Range/Units 12:26 17:18 21:00 POC Glucose (mg/dL) 143 H 151 H 187 H (75-99) mg/dL 07/08/17 Range/Units 07:17 POC Glucose (mg/dL) 141 H (75-99) mg/dL Microbiology - Last 24 Hours (Table) 07/07/17 18:00 Sputum Culture - Preliminary Sputum Assessment and Plan Assessment: Assessment: #1. Acute on chronic hypoxic and hypercapnic respiratory failure secondary to left upper lobe pneumonia, acute COPD exacerbation #2. End-stage oxygen-dependent COPD, GOLD stage IV, baseline FEV1 is 27% of the predicted value, on home oxygen and home AVAPS machine. History of multiple hospitalizations for exacerbation of COPD and pulmonary infections. #3. Chronic nicotine dependence, ongoing #4. Cachectic/catabolic state secondary to advanced COPD #5. Cervical spondylosis with lumbar spine spondylosis #6. Peptic ulcer disease #7. History of MRSA pneumonia #8. Chronic migraines #9. History of depression #10. History of opioid dependence with degenerative disc disease osteoarthritis #11. Hyperlipidemia Plan The patient was seen and evaluated by Dr. Lino. We'll continue with her current medications including IV Solu-medrol, DuoNeb inhalations, Pulmicort and Perforomist inhalations, empiric antibiotics in the form of Levaquin. Keep the BiPAP at the bedside. She will need a follow-up appointment in the office with Dr. Molina to assure clearing of the left upper lobe consolidation and to rule out any underlying malignancy. She is again educated regarding the importance of complete smoking cessation. We will increase her activity as tolerated. We'll continue to follow make further recommendations based on her clinical status. I, the cosigning physician, have performed a history and physical examination on the patient. Lung sounds have bilateral end expiratory wheeze. Diminished throughout. Maintaining good O2 saturations in the 90s on 6 L/m per nasal cannula. I have discussed the assessment and plan of care with my nurse practitioner, Michaela Ribera. I attest the above documented note as dictated by her.
--- NOTE | 2017-07-08 11:20 | P.PN ---
Progress Note - Text addendum malnutrition moderate protein deficiency acute on chronic respiratory failure with hypercapnia pneumonia on admission with sepsis HR 130 leukocytosis
[2017-07-08] MEDS: LEVOFLOXACIN 500MG-D5W PMX 500 MG in DEXTROSE/WATER 1 100ML.BAG IVPB SCH (11:54)
[2017-07-08 12:21] LABS: Glucose,Whole Blood 112 mg/dL (75-99)
[2017-07-08 17:02] LABS: Glucose,Whole Blood 138 mg/dL (75-99)
--- NOTE | 2017-07-08 18:21 | P.PN ---
Subjective Progress Note Date: 07/08/17 progress note dictated for Dr. Olivas. Interval history: This a 46-year-old female admitted with acute exacerbation of COPD, acute on chronic back pain, left upper lobe pneumonia-suspicious left upper lobe consolidation,multiple other medical issues.maintained on Levaquin, IV steroids, nebulized bronchodilators with breathing slow to improve. Close monitoring of the left upper lobe consolidation response, following treatment of possible pneumonia.BiPAP at bedside, uses at night and as needed throughout the day. Maintaining O2 sats of98% on 6 L nasal cannula. Reports productive cough of yellow sputum. Objective - Vital Signs Vital signs: Vital Signs Temp 97.8 F 07/08/17 15:00 Pulse 73 07/08/17 15:00 Resp 18 07/08/17 15:00 BP 116/70 07/08/17 15:00 Pulse Ox 97 07/08/17 15:00 Intake & Output 07/07/17 07/08/17 07/08/17 18:59 06:59 18:59 Intake Total 580 120 Balance 580 120 Weight 49.895 kg Intake: Intake, IV Titration 100 Amount Levofloxacin 500Mg-D5w 100 Pmx 500 mg In Dextrose/ Water 1 100ml.bag @ 100 mls/hr IVPB Q24H [facility] Rx#: [id number] Oral 480 120 Other: Voiding Method Bedside Commode Bedside Commode # Voids 4 1 3 - Exam PHYSICAL EXAM: VITAL SIGNS: [as above] GENERAL: sitting up in bed, tired, fatigued appearing, cachectic, increased respiratory effort HEENT: Conjunctivae normal. eyes normal. oral mucosa moist NECK: No JVD. No thyroid enlargement. No LNs CARDIOVASCULAR: S1, S2 muffled. No murmur RESPIRATION: Breath sounds diminished throughout with no rhonchi, no crackles.expiratory wheezing throughout. ABDOMEN: Soft, nontender. No guarding. no masses palpable. No hepatosplenomegaly.Bowel sounds heard. LEGS: No edema. no swelling PSYCHIATRY: Alert and oriented -3, mood and affect normal. NERVOUS SYSTEM: Cranial N 2-12 grossly normal. Moves all 4 limbs. Diffuse weakness No focal deficits. No sensory deficit. No signs of cerebellar dysfucntion. Skin: no ulcer no rash Joints: No active swelling. No inflammation. Lymphatic system. No LN neck axilla or groin. - Labs CBC & Chem 7: 07/07/17 09:40 07/07/17 09:40 Labs: Abnormal Lab Results - Last 24 Hours (Table) 07/07/17 07/07/17 07/08/17 Range/Units 17:18 21:00 07:17 POC Glucose (mg/dL) 151 H 187 H 141 H (75-99) mg/dL 07/08/17 Range/Units 12:18 POC Glucose (mg/dL) 112 H (75-99) mg/dL Microbiology - Last 24 Hours (Table) 07/07/17 18:00 Gram Stain - Preliminary Sputum Sputum Culture - Preliminary Assessment and Plan Assessment: #1. Acute on chronic hypoxic and hypercapnic respiratory failure secondary to left upper lobe pneumonia, acute COPD exacerbation #2. End-stage oxygen-dependent COPD, GOLD stage IV, baseline FEV1 is 27% of the predicted value, on home oxygen and home AVAPS machine. History of multiple hospitalizations for exacerbation of COPD and pulmonary infections. #3. Chronic nicotine dependence, ongoing #4. Cachectic/catabolic state secondary to advanced COPD #5. Cervical spondylosis with lumbar spine spondylosis #6. Peptic ulcer disease #7. History of MRSA pneumonia #8. Chronic migraines #9. History of depression #10. History of opioid dependence with degenerative disc disease osteoarthritis #11. Hyperlipidemia plan: Continue on current medication regime ,monitoring and symptomatic treatment. Maintain nebulized bronchodilators, steroids, antibiotics. Follow closely with pulmonary. Smoking cessation readdressed.prognosis guarded. Prognosis guarded. The impression and plan of care has been dictated as directed. : I performed a history and examination of this patient, discussed the same with the dictator. I agree with the dictator's note ,documented as a scribe. Any additional findings or plans will be noted.
[2017-07-08] MEDS: traZODone HCL 100 MG TAB PO SCH (20:13)
[2017-07-08] MEDS: risperiDONE 1 MG TAB PO SCH (20:13)
[2017-07-08] MEDS: ASPIRIN 325 MG TAB PO SCH (20:13)
[2017-07-08] MEDS: buPROPion SR 150 MG TABLET.ER PO SCH (20:13)
[2017-07-08 20:21] LABS: Glucose,Whole Blood 190 mg/dL (75-99)
[2017-07-09] MEDS: methylPREDNISolone SOD SUCCI 125 MG/2 ML VIAL IV SCH ×3 (00:13→15:00)
[2017-07-09] MEDS: MORPHINE SULFATE 4 MG/ML SYRINGE IV PRN ×6 (00:14→22:52)
[2017-07-09] MEDS: ALBUTEROL NEBULIZED 2.5 MG/3 ML INHALATION PRN ×2 (03:52→23:23)
[2017-07-09 07:27] LABS: Glucose,Whole Blood 130 mg/dL (75-99)
[2017-07-09] MEDS: BUDESONIDE 1 MG/2 ML NEBU INHALATION SCH ×2 (08:11→19:09)
[2017-07-09] MEDS: IPRATROPIUM-ALBUTEROL 3 ML NEB INHALATION SCH ×4 (08:11→19:09)
[2017-07-09] MEDS: FORMOTEROL FUMARATE 20 MCG/2 ML NEBU INHALATION SCH ×2 (08:11→19:09)
[2017-07-09] MEDS: INSULIN ASPART 100 UNIT/ML 1 ML 10 ML VIAL SQ SCH ×4 (08:19→21:00)
[2017-07-09] MEDS: PREGABALIN 100 MG CAP PO SCH ×2 (08:29→21:00)
[2017-07-09] MEDS: MAGNESIUM OXIDE 400 MG TAB PO SCH (08:30)
[2017-07-09] MEDS: FAMOTIDINE 20 MG TAB PO SCH ×2 (08:30→21:01)
[2017-07-09] MEDS: THEOPHYLLINE 24 HOUR 200 MG CAP.ER.24H PO SCH ×2 (08:30→21:01)
[2017-07-09] MEDS: LEVOFLOXACIN 500 MG TAB PO SCH (08:31)
[2017-07-09 11:33] LABS: Glucose,Whole Blood 198 mg/dL (75-99)
--- NOTE | 2017-07-09 11:53 | P.PN ---
Subjective This a 46-year-old female admitted with acute exacerbation of COPD, acute on chronic back pain, left upper lobe pneumonia-suspicious left upper lobe consolidation,multiple other medical issues.maintained on Levaquin, IV steroids , nebulized bronchodilators with breathing slow to improve. Close monitoring of the left upper lobe consolidation response, following treatment of possible pneumonia.BiPAP at bedside, uses at night and as needed throughout the day. Maintaining O2 sats of98% on 6 L nasal cannula. Reports productive cough of yellow sputum. 07/09/2017 Patient is still complaining of shortness of breath no significant improvement compared to yesterday Constitutional: Denied any fatigue denied any fever. Cardio vascular: denied any chest pain, palpitations Gastrointestinal denied any nausea vomiting Pulmonary: As mentioned in HPI Neurologic denied any new focal deficits Objective - Vital Signs Vital signs: Vital Signs Temp 97.8 F 07/08/17 16:00 Pulse 70 07/09/17 11:43 Resp 18 07/09/17 07:00 BP 122/95 07/09/17 07:00 Pulse Ox 95 07/09/17 08:14 Intake & Output 07/08/17 07/09/17 07/09/17 18:59 06:59 18:59 Intake Total 120 100 Balance 120 100 Intake: Oral 120 100 Other: Voiding Method Bedside Commode Bedside Commode # Voids 3 4 1 - Exam GENERAL: sitting up in bed, tired, fatigued appearing, cachectic, increased respiratory effort HEENT: Conjunctivae normal. eyes normal. oral mucosa moist NECK: No JVD. No thyroid enlargement. No LNs CARDIOVASCULAR: S1, S2 muffled. No murmur RESPIRATION: Breath sounds diminished throughout with no rhonchi, no crackles.expiratory wheezing throughout. ABDOMEN: Soft, nontender. No guarding. no masses palpable. No hepatosplenomegaly.Bowel sounds heard. LEGS: No edema. no swelling PSYCHIATRY: Alert and oriented -3, mood and affect normal. NERVOUS SYSTEM: Cranial N 2-12 grossly normal. Moves all 4 limbs. Diffuse weakness No focal deficits. No sensory deficit. No signs of cerebellar dysfucntion. Skin: no ulcer no rash Joints: No active swelling. No inflammation. Lymphatic system. No LN neck axilla or groin. - Labs CBC & Chem 7: 07/07/17 09:40 07/07/17 09:40 Labs: Abnormal Lab Results - Last 24 Hours (Table) 07/08/17 07/08/17 07/08/17 Range/Units 12:18 16:59 19:56 POC Glucose (mg/dL) 112 H 138 H 190 H (75-99) mg/dL 07/09/17 07/09/17 Range/Units 07:26 11:06 POC Glucose (mg/dL) 130 H 198 H (75-99) mg/dL Microbiology - Last 24 Hours (Table) 07/07/17 18:00 Gram Stain - Preliminary Sputum Sputum Culture - Preliminary Assessment and Plan Plan: #1. Acute on chronic hypoxic and hypercapnic respiratory failure secondary to left upper lobe pneumonia, acute COPD exacerbation #2. End-stage oxygen-dependent COPD, GOLD stage IV, baseline FEV1 is 27% of the predicted value, on home oxygen and home AVAPS machine. History of multiple hospitalizations for exacerbation of COPD and pulmonary infections. #3. Chronic nicotine dependence, ongoing #4. Cachectic/catabolic state secondary to advanced COPD #5. Cervical spondylosis with lumbar spine spondylosis #6. Peptic ulcer disease #7. History of MRSA pneumonia #8. Chronic migraines #9. History of depression #10. History of opioid dependence with degenerative disc disease osteoarthritis #11. Hyperlipidemia plan: Continue on current medication regime ,monitoring and symptomatic treatment. Maintain nebulized bronchodilators, steroids, antibiotics. Follow closely with pulmonary.
--- NOTE | 2017-07-09 13:38 | P.PN ---
Subjective Progress Note Date: 07/09/17 Principal diagnosis: Acute exacerbation of chronic obstructive pulmonary disease, acute on chronic back pain. Ameena is a 46-year-old white female patient who sees Dr. Molina in our office for her history of severe oxygen-dependent COPD, gold stage IV, with history of multiple frequent hospitalizations for pulmonary infections and COPD exacerbation. She was last hospitalized for COPD exacerbation in April and discharged home on 04/29/2017. The baseline FEV1 is 27% of the predicted value , she has a AVAPS machine at home. Unfortunately despite her severe limitation in her pulmonary function and exercise capacity, she continues to smoke, currently pack a day. Her other medical history includes asthma, hyperlipidemia , osteoarthritis, cervical and lumbar spine spondylosis, chronic migraines, GERD , cervical cancer, depression and cachexia. Yesterday she went to see Dr. Italo John, her primary care physician, for her increasing shortness of breath , left back pain, low-grade fever, increased chest congestion, increased wheezing and increased dyspnea. Pulse oximetry was noted to be 80% on 5 L of oxygen. Patient was escorted to the emergency room and admitted to the medical surgical floor. Chest x-ray from 07/06/2017 has been reviewed by Dr[address] Lino and shows a nodular area of infiltrate in the left upper lobe, possibly pneumonia versus an underlying neoplasm. Hyperinflation consistent with COPD, no evidence of heart failure, arthropathy of the shoulders noted. On presentation, there is evidence of leukocytosis with WBCs at 16, no significant electrolyte abnormality, no coagulopathy, troponin was negative 1, proBNP negative at 69. Patient was tachycardic on presentation with a heart rate in the 1:30 BPM, low-grade fever at 99F, respirations labored and tachypneic at 28 breaths per minute. Patient was initiated on high-dose IV steroids, Symbicort and DuoNeb nebulized treatments, and IV Levaquin for empiric antibiotic coverage. On examination, patient is seen resting in bed, short of breath with normal conversation, currently on 6 L per nasal cannula with O2 sat at 95%. No episodes of fevers since admission. She is slightly less tachycardic with a heart rate in the 108 BPM. Her lung sounds severely diminished, with limited airflow, a few end expiratory wheezing, and scattered rhonchi. The patient is seen again today 07/08/2017 in follow-up on the regular medical floor. She is awake and alert in no acute distress. She is breathing easier today as compared to yesterday but not quite back to her baseline. She is maintaining O2 saturations in the 90s on 6 L/m per nasal cannula. She's been afebrile. Hemodynamically stable. Sputum culture is pending. She is seen again today 07/09/2017 in follow-up on the regular medical floor. She is awake and alert in no acute distress. She denies any worsening shortness of breath, cough or congestion. No chills or night sweats. She is receiving 6 L high flow nasal cannula to maintain O2 saturations in the 90s. Preliminary sputum culture reveals many gram-positive cocci, moderate gram- negative cocci. Currently on Levaquin. Objective - Vital Signs Vital signs: Vital Signs Temp 97.8 F 07/08/17 16:00 Pulse 72 07/09/17 11:51 Resp 18 07/09/17 07:00 BP 122/95 07/09/17 07:00 Pulse Ox 95 07/09/17 08:14 Intake & Output 07/08/17 07/09/17 07/09/17 18:59 06:59 18:59 Intake Total 120 100 Balance 120 100 Intake: Oral 120 100 Other: Voiding Method Bedside Commode Bedside Commode # Voids 3 4 1 - Exam GENERAL EXAM: Frail, cachectic. Appears older than stated age. Fairly comfortable in no apparent distress. HEAD: Normocephalic. EYES: Normal reaction of pupils, equal size. NOSE: Clear with pink turbinates. THROAT: No erythema or exudates. NECK: No masses, no JVD. CHEST: No chest wall deformity. LUNGS: Equal air entry with end expiratory wheeze. Diminished throughout. CVS: S1 and S2 normal with no audible murmur, regular rhythm. ABDOMEN: No hepatosplenomegaly, normal bowel sounds, no guarding or rigidity. SPINE: No scoliosis or deformity SKIN: No rashes CENTRAL NERVOUS SYSTEM: No focal deficits, tone is normal in all 4 extremities. EXTREMITIES: There is no peripheral edema. No clubbing, no cyanosis. Peripheral pulses are intact. - Labs CBC & Chem 7: 07/07/17 09:40 07/07/17 09:40 Labs: Abnormal Lab Results - Last 24 Hours (Table) 07/08/17 07/08/17 07/09/17 Range/Units 16:59 19:56 07:26 POC Glucose (mg/dL) 138 H 190 H 130 H (75-99) mg/dL 07/09/17 Range/Units 11:06 POC Glucose (mg/dL) 198 H (75-99) mg/dL Microbiology - Last 24 Hours (Table) 07/07/17 18:00 Gram Stain - Preliminary Sputum Sputum Culture - Preliminary Assessment and Plan Assessment: Assessment: #1. Acute on chronic hypoxic and hypercapnic respiratory failure secondary to left upper lobe pneumonia, acute COPD exacerbation #2. End-stage oxygen-dependent COPD, GOLD stage IV, baseline FEV1 is 27% of the predicted value, on home oxygen and home AVAPS machine. History of multiple hospitalizations for exacerbation of COPD and pulmonary infections. #3. Chronic nicotine dependence, ongoing #4. Cachectic/catabolic state secondary to advanced COPD #5. Cervical spondylosis with lumbar spine spondylosis #6. Peptic ulcer disease #7. History of MRSA pneumonia #8. Chronic migraines #9. History of depression #10. History of opioid dependence with degenerative disc disease osteoarthritis #11. Hyperlipidemia Plan The patient was seen and evaluated by Dr. Lino. We'll continue with her current medications including DuoNeb inhalations, Pulmicort and Perforomist inhalations, antibiotics in the form of Levaquin. We will convert her IV Solu- Medrol over to a prednisone burst and taper. She will need a follow-up appointment in the office with Dr. Molina to assure clearing of the left upper lobe consolidation and to rule out any underlying malignancy. She is again educated regarding the importance of complete smoking cessation. We will increase her activity as tolerated. We'll continue to follow make further recommendations based on her clinical status. I, the cosigning physician, have performed a history and physical examination on the patient. Lung sounds have bilateral end expiratory wheeze. Diminished throughout. Maintaining good O2 saturations in the 90s on 6 L/m per nasal cannula. I have discussed the assessment and plan of care with my nurse practitioner, Michaela Ribera. I attest the above documented note as dictated by her.
[2017-07-09 17:05] LABS: Glucose,Whole Blood 81 mg/dL (75-99)
[2017-07-09 20:16] LABS: Glucose,Whole Blood 154 mg/dL (75-99)
[2017-07-09] MEDS: risperiDONE 1 MG TAB PO SCH (21:01)
[2017-07-09] MEDS: traZODone HCL 100 MG TAB PO SCH (21:01)
[2017-07-09] MEDS: buPROPion SR 150 MG TABLET.ER PO SCH (21:01)
[2017-07-09] MEDS: ASPIRIN 325 MG TAB PO SCH (21:01)
[2017-07-10] MEDS: ALBUTEROL NEBULIZED 2.5 MG/3 ML INHALATION PRN (03:32)
[2017-07-10] MEDS: MORPHINE SULFATE 4 MG/ML SYRINGE IV PRN ×2 (03:45→08:44)
[2017-07-10 07:03] LABS: Anisocytosis Slight; CH 27.3; CHCM 30.7; HCT 45.1 % (34.0-46.0); HDW 2.43; HGB 13.7 gm/dL (11.4-16.0); Hypochromasia Slight; MCH 27.1 pg (25.0-35.0); MCHC 30.4 g/dL (31.0-37.0); MCV 89.3 fL (80.0-100.0); Mean Platelet Volume 7.1; RBC 5.05 m/uL (3.80-5.40); RDW 16.8 % (11.5-15.5); WBC 11.5 k/uL (3.8-10.6)
[2017-07-10 07:08] LABS: Glucose,Whole Blood 82 mg/dL (75-99)
[2017-07-10] MEDS: IPRATROPIUM-ALBUTEROL 3 ML NEB INHALATION SCH ×2 (07:08→10:57)
[2017-07-10] MEDS: FORMOTEROL FUMARATE 20 MCG/2 ML NEBU INHALATION SCH (07:08)
[2017-07-10] MEDS: BUDESONIDE 1 MG/2 ML NEBU INHALATION SCH (07:08)
[2017-07-10] MEDS: INSULIN ASPART 100 UNIT/ML 1 ML 10 ML VIAL SQ SCH (07:16)
[2017-07-10 07:17] LABS: Anion Gap 7 mmol/L; Blood Urea Nitrogen 41 mg/dL (7-17); Calcium 9.6 mg/dL (8.4-10.2); Carbon Dioxide 29 mmol/L (22-30); Chloride 101 mmol/L (98-107); Glucose 79 mg/dL (74-99); Non-African American GFR(MDRD) >60 (>60 ml/min/1.73 sqM); Potassium 4.8 mmol/L (3.5-5.1); Sodium 137 mmol/L (137-145)
[2017-07-10 08:42] VITALS: BP 122/72; RESP 16; TEMP 97.7
[2017-07-10] MEDS ORDERED: predniSONE 20 MG TAB PO SCH (09:00)
--- NOTE | 2017-07-10 10:03 | P.DS ---
Providers Date of admission: 07/06/17 16:19 Attending physician: Italo John Consults: 07/06/17 16:27 Consult Physician Urgent Consulting Provider: Kevon Molina Consult Reason/Comments: copd Do you want consulting provider notified?: Yes Primary care physician: Italo John Hospital Course: This a 46-year-old female admitted with acute exacerbation of COPD, acute on chronic back pain, left upper lobe pneumonia-suspicious left upper lobe consolidation,multiple other medical issues.maintained on Levaquin, IV steroids , nebulized bronchodilators with breathing slow to improve. Close monitoring of the left upper lobe consolidation response, following treatment of possible pneumonia.BiPAP at bedside, uses at night and as needed throughout the day. Maintaining O2 sats of98% on 6 L nasal cannula. Reports productive cough of yellow sputum. 07/09/2017 Patient is still complaining of shortness of breath no significant improvement compared to yesterday 07/10/2017 Patient's is pretty status is at her baseline patient will be discharged today accident for [facility] which we will we will provide upon discharge PHYSICAL EXAMINATION: GENERAL: The patient is alert and oriented x3, not in any acute distress. Well developed, well nourished. HEENT: Pupils are round and equally reacting to light. EOMI. No scleral icterus. No conjunctival pallor. Normocephalic, atraumatic. No pharyngeal erythema. No thyromegaly. CARDIOVASCULAR: S1 and S2 present. No murmurs, rubs, or gallops. PULMONARY: Chest is clear to auscultation, no wheezing or crackles. ABDOMEN: Soft, nontender, nondistended, normoactive bowel sounds. No palpable organomegaly. MUSCULOSKELETAL: No joint swelling or deformity. EXTREMITIES: No cyanosis, clubbing, or pedal edema. NEUROLOGICAL: Gross neurological examination did not reveal any focal deficits. SKIN: No rashes. Assessment and Plan Plan: #1. Acute on chronic hypoxic and hypercapnic respiratory failure secondary to left upper lobe pneumonia, acute COPD exacerbation #2. End-stage oxygen-dependent COPD, GOLD stage IV, baseline FEV1 is 27% of the predicted value, on home oxygen and home AVAPS machine. History of multiple hospitalizations for exacerbation of COPD and pulmonary infections. #3. Chronic nicotine dependence, ongoing #4. Cachectic/catabolic state secondary to advanced COPD #5. Cervical spondylosis with lumbar spine spondylosis #6. Peptic ulcer disease #7. History of MRSA pneumonia #8. Chronic migraines #9. History of depression #10. History of opioid dependence with degenerative disc disease osteoarthritis #11. Hyperlipidemia Patient Condition at Discharge: Fair Plan - Discharge Summary Discharge Rx Participant: Yes New Discharge Prescriptions: New Levofloxacin [Levaquin] 500 mg PO DAILY #5 tab predniSONE 10 mg PO DAILY #30 tab Cyclobenzaprine [Flexeril] 5 mg PO HS PRN #20 tab PRN Reason: Muscle Spasm Discontinued predniSONE 20 mg PO DAILY #0 No Action Omeprazole [PriLOSEC] 40 mg PO BID Albuterol Inhaler [Ventolin Hfa Inhaler] 2 puff INHALATION RT-QID PRN PRN Reason: Shortness Of Breath Multivitamins, Thera [Multivitamin (formulary)] 1 tab PO DAILY risperiDONE 3 mg PO HS traZODone HCL 300 mg PO HS buPROPion SR [Wellbutrin SR] 150 mg PO HS Aspirin [Aspirin EC] 325 mg PO HS Budesonide-Formot 160-4.5 Mcg [Symbicort 160-4.5 Mcg Inhaler] 2 puff INHALATION RT-BID puff rOPINIRole HCL 1 mg PO HS Pregabalin [Lyrica] 100 mg PO BID Magnesium Oxide [Mag-Ox] 400 mg PO DAILY Ipratropium-Albuterol Nebulize [Duoneb 0.5 mg-3 mg/3 ml Soln] 3 ml INHALATION RT-QID neb Hydrocodone/Acetaminophen [[place] 7.5-325] 1 tab PO Q6H PRN PRN Reason: Pain Tiotropium 18 Mcg/Puff [Spiriva] 1 cap INHALATION RT-DAILY Theophylline 24 Hour [Akhil-24] 200 mg PO BID Umeclidinium [place] [Incruse Ellipta] 1 puff INHALATION RT-DAILY Discharge Medication List Albuterol Inhaler [Ventolin Hfa Inhaler] 2 puff INHALATION RT-QID PRN 01/03/14 [ History] Omeprazole [PriLOSEC] 40 mg PO BID 01/03/14 [History] Multivitamins, Thera [Multivitamin (formulary)] 1 tab PO DAILY 12/24/14 [History ] risperiDONE 3 mg PO HS 12/24/14 [History] traZODone HCL 300 mg PO HS 12/24/14 [History] buPROPion SR [Wellbutrin SR] 150 mg PO HS 04/30/15 [History] Aspirin [Aspirin EC] 325 mg PO HS 03/24/16 [History] Budesonide-Formot 160-4.5 Mcg [Symbicort 160-4.5 Mcg Inhaler] 2 puff INHALATION RT-BID puff 07/13/16 [Rx] rOPINIRole HCL 1 mg PO HS 07/18/16 [History] Pregabalin [Lyrica] 100 mg PO BID 10/31/16 [History] Magnesium Oxide [Mag-Ox] 400 mg PO DAILY 12/26/16 [History] Ipratropium-Albuterol Nebulize [Duoneb 0.5 mg-3 mg/3 ml Soln] 3 ml INHALATION RT -QID neb 01/20/17 [Rx] Hydrocodone/Acetaminophen [[place] 7.5-325] 1 tab PO Q6H PRN 04/26/17 [History] Theophylline 24 Hour [Akhil-24] 200 mg PO BID 07/06/17 [History] Tiotropium 18 Mcg/Puff [Spiriva] 1 cap INHALATION RT-DAILY 07/06/17 [History] Umeclidinium [place] [Incruse Ellipta] 1 puff INHALATION RT-DAILY 07/06/17 [ History] Cyclobenzaprine [Flexeril] 5 mg PO HS PRN #20 tab 07/10/17 [Rx] Levofloxacin [Levaquin] 500 mg PO DAILY #5 tab 07/10/17 [Rx] predniSONE 10 mg PO DAILY #30 tab 07/10/17 [Rx] Follow up Appointment(s)/Referral(s): Italo John MD [Primary Care Provider] - 3 Days Kevon Molina MD [STAFF PHYSICIAN] - 1 Week Discharge Disposition: HOME SELF-CARE
[2017-07-10] MEDS: FAMOTIDINE 20 MG TAB PO SCH (10:41)
[2017-07-10] MEDS: MAGNESIUM OXIDE 400 MG TAB PO SCH (10:41)
[2017-07-10] MEDS: THEOPHYLLINE 24 HOUR 200 MG CAP.ER.24H PO SCH (10:42)
[2017-07-10] MEDS: PREGABALIN 100 MG CAP PO SCH (10:42)
--- NOTE | 2017-07-10 10:45 | P.PN ---
Subjective Progress Note Date: 07/10/17 Principal diagnosis: COPD exacerbation Progress note dated 07/10/2017 This is a 46-year-old female with a history of severe COPD. She is oxygen and steroid dependent. She looks like she is doing much better and could be discharged home. Her primary is Dr. Italo John. She's currently seeing the other hospital group on this admission. The patient feels better. Chronically short of breath. Lots of chest congestion. Unfortunately this patient continues to smoke despite counseling. She denies any chest pain. No fever no chills. No nausea vomiting or diarrhea. Objective - Vital Signs Vital signs: Vital Signs Temp 97.7 F 07/10/17 07:00 Pulse 72 07/10/17 08:00 Resp 16 07/10/17 08:00 BP 122/72 07/10/17 07:00 Pulse Ox 98 07/10/17 07:10 Intake & Output 07/09/17 07/10/17 07/10/17 18:59 06:59 18:59 Intake Total 240 690 Balance 240 690 Intake: Oral 240 690 Other: Voiding Method Bedside Commode Bedside Commode Bedside Commode # Voids 3 1 - Exam No acute distress, oriented 3. The patient looks much older than her stated age. HEENT examination is grossly unremarkable. Mucous membranes are moist. No oral lesions. Nasal O2 in place Neck supple. Full range of motion. No adenopathy thyromegaly or neck vein distention. Cardiovascular examination reveals regular rhythm rate. S1-S2 normal. No S3 or S4. No discernible murmur noted. Lungs reveal severely diminished breath sounds. No wheezes. No crackles. A few scattered rhonchi. Prolongation on forced maneuver.. Abdomen soft bowel sounds are heard. No masses or tenderness. Extremities are intact. No cyanosis clubbing or edema. Skin is without rash or lesion. Neurologic examination is brief but nonfocal. - Labs CBC & Chem 7: 07/10/17 06:22 07/10/17 06:22 Labs: Abnormal Lab Results - Last 24 Hours (Table) 07/09/17 07/09/17 07/10/17 Range/Units 11:06 20:15 06:22 WBC 11.5 H (3.8-10.6) k/uL MCHC 30.4 L (31.0-37.0) g/dL RDW 16.8 H (11.5-15.5) % Plt Count 560 H (150-450) k/uL BUN (7-17) mg/dL POC Glucose (mg/dL) 198 H 154 H (75-99) mg/dL 07/10/17 Range/Units 06:22 WBC (3.8-10.6) k/uL MCHC (31.0-37.0) g/dL RDW (11.5-15.5) % Plt Count (150-450) k/uL BUN 41 H (7-17) mg/dL POC Glucose (mg/dL) (75-99) mg/dL Assessment and Plan (1) COPD (chronic obstructive pulmonary disease) with emphysema Current Visit: Yes Status: Acute Code(s): J43.9 - EMPHYSEMA, UNSPECIFIED SNOMED Code(s): 84732294 (2) Acute exacerbation of chronic obstructive airways disease Current Visit: No Status: Acute Code(s): J44.1 - CHRONIC OBSTRUCTIVE PULMONARY DISEASE W (ACUTE) EXACERBATION SNOMED Code(s): 003501256 (3) Anxiety Current Visit: No Status: Acute Code(s): F41.9 - ANXIETY DISORDER, UNSPECIFIED SNOMED Code(s): 71157373 (4) Bronchitis Current Visit: No Status: Acute Code(s): J40 - BRONCHITIS, NOT SPECIFIED ACUTE OR CHRONIC SNOMED Code(s): 23778169 (5) COPD (chronic obstructive pulmonary disease) Current Visit: No Status: Acute Code(s): J44.9 - CHRONIC OBSTRUCTIVE PULMONARY DISEASE, UNSPECIFIED SNOMED Code(s): 65662929 (6) COPD exacerbation Current Visit: No Status: Acute Code(s): J44.1 - CHRONIC OBSTRUCTIVE PULMONARY DISEASE W (ACUTE) EXACERBATION SNOMED Code(s): 206329845718364 (7) Nicotine dependence Current Visit: No Status: Acute Code(s): F17.200 - NICOTINE DEPENDENCE, UNSPECIFIED, UNCOMPLICATED SNOMED Code(s): 50348809 (8) Pneumonia Current Visit: No Status: Acute Code(s): J18.9 - PNEUMONIA, UNSPECIFIED ORGANISM SNOMED Code(s): 531924640 (9) Sepsis Current Visit: No Status: Acute Code(s): A41.9 - SEPSIS, UNSPECIFIED ORGANISM SNOMED Code(s): 11314094 Plan: Plan dated 07/10/2017 The patient seemed be doing a lot better. I'm not sure that she'll be discharged today. She may be. The patient should follow-up with her primary doctor who is Dr. Italo John. She should also follow-up with her health program manager is my partner, Dr. Molina. The patient could be discharged home on prednisone with a burst and taper as well as an oral antibiotic for a few days. We'll continue to follow. Prognosis is very poor. She continues to smoke. She does receive smoking cessation counseling. Time with Patient: Less than 30
[2017-07-10 11:11] VITALS: PULSE 72
[2017-07-10] MEDS: LEVOFLOXACIN 500 MG TAB PO SCH (11:38)
== END 2017-07-10 11:59 | disposition home or self-care (01) | DRG 720 ==
LOC: EC 14:29 → 5MS5E 16:19
PROVIDERS: ADMIT Family Medicine; ATTEND Family Medicine
DX: A41.9 Sepsis, unspecified organism (principal); J96.21 Acute and chronic respiratory failure with hypoxia; E44.0 Moderate protein-calorie malnutrition; R64 Cachexia; J18.9 Pneumonia, unspecified organism; Z99.81 Dependence on supplemental oxygen; J44.0 Chronic obstructive pulmonary disease with (acute) lower respiratory infection; E78.5 Hyperlipidemia, unspecified; F17.210 Nicotine dependence, cigarettes, uncomplicated; F41.9 Anxiety disorder, unspecified; G43.909 Migraine, unspecified, not intractable, without status migrainosus; G89.29 Other chronic pain; I25.2 Old myocardial infarction; J44.1 Chronic obstructive pulmonary disease with (acute) exacerbation; J96.22 Acute and chronic respiratory failure with hypercapnia; K21.9 Gastro-esophageal reflux disease without esophagitis; K27.9 Peptic ulcer, site unspecified, unspecified as acute or chronic, without hemorrhage or perforation; M47.812 Spondylosis without myelopathy or radiculopathy, cervical region; M47.816 Spondylosis without myelopathy or radiculopathy, lumbar region; Z79.51 Long term (current) use of inhaled steroids; Z79.52 Long term (current) use of systemic steroids; Z79.82 Long term (current) use of aspirin; Z79.899 Other long term (current) drug therapy; Z85.41 Personal history of malignant neoplasm of cervix uteri; Z86.14 Personal history of Methicillin resistant Staphylococcus aureus infection; Z87.01 Personal history of pneumonia (recurrent); Z88.6 Allergy status to analgesic agent; Z88.1 Allergy status to other antibiotic agents; Z88.5 Allergy status to narcotic agent; Z88.2 Allergy status to sulfonamides; F32.9 Major depressive disorder, single episode, unspecified
CPT/HCPCS: 36415; 71010; 80048; 80053; 83036; 83735; 83880; 84484; 85025; 85027; 85610; 85730; 87070; 87205; 93005; 94640; 94644; 94660; 94760; 96365; 96366; 96375; 96376; 99291

== ENCOUNTER 2017-11-02 11:18 | Observation (INO) | payer OTHER ==
--- NOTE | 2017-11-02 12:18 | XR ---
EXAMINATION TYPE: XR chest 2V DATE OF EXAM: 11/02/2017 COMPARISON: 07/20/2017 INDICATION: Difficulty breathing COPD TECHNIQUE: Frontal and lateral views of the chest are obtained. FINDINGS: The heart size is normal. The pulmonary vasculature is normal. The lungs are clear. There is hyperinflation with an increased AP diameter compatible COPD. IMPRESSION: 1. No acute pulmonary process. 2. COPD
[2017-11-02 12:19] LABS: Basophils % (A) 0 %; Eosinophils # (A) 0.1 k/uL (0-0.7); Eosinophils % (A) 1 %; HCT 45.9 % (34.0-46.0); HGB 14.7 gm/dL (11.4-16.0); Lymphocytes # (A) 1.2 k/uL (1.0-4.8); Lymphocytes % (A) 8 %; MCH 27.5 pg (25.0-35.0); MCV 85.8 fL (80.0-100.0); Mean Platelet Volume 6.9; Monocytes # (A) 0.4 k/uL (0-1.0); Monocytes % (A) 3 %; Neutrophils # (A) 12.9 k/uL (1.3-7.7); Neutrophils % (A) 88 %; Platelet Count 465 k/uL (150-450); RBC 5.35 m/uL (3.80-5.40); RDW 15.7 % (11.5-15.5); WBC 14.7 k/uL (3.8-10.6)
[2017-11-02 12:24] LABS: Prothrombin Time 9.7 sec (9.0-12.0)
[2017-11-02 12:30] LABS: Partial Thromboplastin Time 22.8 sec (22.0-30.0)
[2017-11-02 12:35] LABS: ALT 18 U/L (9-52); AST 21 U/L (14-36); Albumin 4.3 g/dL (3.5-5.0); Alkaline Phosphatase 74 U/L (38-126); Anion Gap 12 mmol/L; Blood Urea Nitrogen 18 mg/dL (7-17); Calcium 10.2 mg/dL (8.4-10.2); Carbon Dioxide 27 mmol/L (22-30); Chloride 103 mmol/L (98-107); Glucose 132 mg/dL (74-99); Magnesium 1.7 mg/dL (1.6-2.3); Potassium 4.3 mmol/L (3.5-5.1); Sodium 142 mmol/L (137-145); Total Bilirubin 0.3 mg/dL (0.2-1.3); Total Protein 6.9 g/dL (6.3-8.2)
[2017-11-02 12:38] LABS: Creatine Kinase 73 U/L (30-135)
[2017-11-02] MEDS ORDERED: RX INFO: IV CONTRAST WAS GIVEN 1 EACH MISC MISCELLANE PRN ×2 (12:40→12:44)
--- NOTE | 2017-11-02 12:41 | ED ---
General Adult HPI - General Chief complaint: Shortness of Breath Stated complaint: YOHANA & back pain Time Seen by Provider: 11/02/17 12:40 Source: patient, RN notes reviewed, old records reviewed Mode of arrival: ambulatory Limitations: no limitations - History of Present Illness Initial comments: This is a 47-year-old female the ER with chest pain chest pain 2 days. Patient 's chest pain there is anterior chest rating to back of her shoulder blades. Patient has history of severe COPD. Patient seen by Dr. Nathan is a 7 for evaluation. Severe back pain. Patient denies any recent fevers, does have increased cough and congestion. Patient has no known travel history. No known sick contacts. - Related Data Home Medications Medication Instructions Recorded Confirmed Albuterol Inhaler [Ventolin Hfa 2 puff INHALATION RT-QID PRN 01/03/14 11/02/17 Inhaler] Omeprazole [PriLOSEC] 40 mg PO BID 01/03/14 11/02/17 Multivitamins, Thera [Multivitamin 1 tab PO DAILY 12/24/14 11/02/17 (formulary)] risperiDONE 3 mg PO HS 12/24/14 11/02/17 traZODone HCL 300 mg PO HS 12/24/14 11/02/17 buPROPion SR [Wellbutrin SR] 150 mg PO HS 04/30/15 11/02/17 Aspirin [Aspirin EC] 325 mg PO HS 03/24/16 11/02/17 Pregabalin [Lyrica] 100 mg PO BID 10/31/16 11/02/17 Hydrocodone/Acetaminophen [[place] 1 tab PO Q6H PRN 04/26/17 11/02/17 7.5-325] Theophylline 24 Hour [Akhil-24] 200 mg PO BID 07/06/17 11/02/17 Umeclidinium [place] [Incruse 1 puff INHALATION RT-DAILY 07/06/17 11/02/17 Ellipta] Verapamil HCl 120 mg PO DAILY 11/02/17 11/02/17 rOPINIRole HCL [Requip] 1 mg PO HS 11/02/17 11/02/17 Previous Rx's Medication Instructions Recorded Budesonide-Formot 160-4.5 Mcg 2 puff INHALATION RT-BID puff 07/13/16 [Symbicort 160-4.5 Mcg Inhaler] Ipratropium-Albuterol Nebulize 3 ml INHALATION RT-QID neb 01/20/17 [Duoneb 0.5 mg-3 mg/3 ml Soln] amLODIPine [Norvasc] 5 mg PO DAILY #30 tab 07/26/17 Allergies Allergy/AdvReac Type Severity Reaction Status Date / Time aripiprazole [From Abilify] Allergy Rash/Hives Verified 11/02/17 13:22 cephalexin [From Keflex] Allergy Unknown Verified 11/02/17 13:22 honey Allergy Rash/Hives Verified 11/02/17 13:22 methadone [Methadone] Allergy Itching Verified 11/02/17 13:22 naproxen Allergy Rash/Hives Verified 11/02/17 13:22 sulfamethoxazole Allergy Rash/Hives Verified 11/02/17 13:22 [From Bactrim] tetracycline [Tetracycline] Allergy Rash/Hives Verified 11/02/17 13:22 trimethoprim [From Bactrim] Allergy Rash/Hives Verified 11/02/17 13:22 adhesive tape AdvReac Rash/Hives Verified 11/02/17 13:22 tramadol HCl [From Ultram] AdvReac SEIZURES Verified 11/02/17 13:22 tromethamine AdvReac Nausea & Verified 11/02/17 13:22 Vomiting Review of Systems ROS Statement: Those systems with pertinent positive or pertinent negative responses have been documented in the HPI. ROS Other: All systems not noted in ROS Statement are negative. Past Medical History Past Medical History: Asthma, Cancer, Chest Pain / Angina, COPD, GERD/Reflux, Hyperlipidemia, Osteoarthritis (OA) Additional Past Medical History / Comment(s): COPD which is been end-stage with frequent hospitalization for acute COPD exacerbation. The patient has chronic hypoxic and hypercapnic respiratory failure. The patient is 02 dependent at L/ m nasal cannula,L advanced COPD , cervical and lumbar spine spondylosis, chronic migraines, peptic ulcer disease/gastric ulcers, carpal tunnel disease bilaterally, herniated disc at level of C5-C6 and C7, cervical cancer, depression. Last Myocardial Infarction Date:: UNK History of Any Multi-Drug Resistant Organisms: MRSA Date of last positivie culture/infection: 06/18/2015 MDRO Source:: SPUTUM Past Surgical History: Section, Cholecystectomy, Hysterectomy, Tubal Ligation Additional Past Surgical History / Comment(s): x 2, colonoscopy with benign polypectomy. Past Anesthesia/Blood Transfusion Reactions: No Reported Reaction Additional Past Anesthesia/Blood Transfusion Reaction / Comment(s): Pt has never recieved blood. Past Psychological History: Anxiety, Bipolar, Depression Smoking Status: Current some day smoker Past Alcohol Use History: None Reported Past Drug Use History: None Reported - Past Family History Father Family Medical History: No Reported History Additional Family Medical History / Comment(s): WAS AN ALCOHOLIC Mother Family Medical History: Cancer Additional Family Medical History / Comment(s): AT AGE 54-BOWEL CANCER General Exam Limitations: no limitations General appearance: alert, anxious, in distress, cachectic Head exam: Present: atraumatic, normocephalic, normal inspection Eye exam: Present: normal appearance, PERRL, EOMI. Absent: scleral icterus, conjunctival injection, periorbital swelling ENT exam: Present: normal exam, mucous membranes moist Neck exam: Present: normal inspection. Absent: tenderness, meningismus, lymphadenopathy Respiratory exam: Present: wheezes, accessory muscle use, decreased breath sounds, prolonged expiratory. Absent: respiratory distress, rales, rhonchi, stridor Cardiovascular Exam: Present: regular rate, normal rhythm, normal heart sounds. Absent: systolic murmur, diastolic murmur, rubs, gallop, clicks GI/Abdominal exam: Present: soft, normal bowel sounds. Absent: distended, tenderness, guarding, rebound, rigid Extremities exam: Present: normal inspection, full ROM, normal capillary refill. Absent: tenderness, pedal edema, joint swelling, calf tenderness Back exam: Present: normal inspection Neurological exam: Present: alert, oriented X3, CN II-XII intact Psychiatric exam: Present: normal affect, normal mood Skin exam: Present: warm, dry, intact, normal color. Absent: rash Course Vital Signs 11/02/17 11/02/17 11/02/17 11:25 12:45 12:47 Temperature 98.0 F 98.5 F Pulse Rate 118 H 82 Respiratory 18 18 24 Rate Blood Pressure 140/87 132/96 O2 Sat by Pulse 93 L 98 Oximetry - Reevaluation(s) Reevaluation #1: 11/02/17 14:48 Patient has adequate pain control at this time. Feeling much better with prolonged breathing treatment EKG Findings - EKG Comments: EKG Findings:: EKG shows sinus rhythm rate of 90, WI 150, QRS 76, QTc 437 Medical Decision Making - Medical Decision Making 47 female DEL with cough congestion shortness of breath significant shortness of breath. Patient's feeling better with treatments here in the ER, CT is negative. We'll admit for further evaluation and management - Lab Data Result diagrams: 11/02/17 11:57 11/02/17 11:57 Lab Results 11/02/17 11/02/17 11/02/17 Range/Units 11:57 11:57 11:57 WBC 14.7 H (3.8-10.6) k/uL RBC 5.35 (3.80-5.40) m/uL Hgb 14.7 (11.4-16.0) gm/dL Hct 45.9 (34.0-46.0) % MCV 85.8 (80.0-100.0) fL MCH 27.5 (25.0-35.0) pg MCHC 32.0 (31.0-37.0) g/dL RDW 15.7 H (11.5-15.5) % Plt Count 465 H (150-450) k/uL Neutrophils % 88 % Lymphocytes % 8 % Monocytes % 3 % Eosinophils % 1 % Basophils % 0 % Neutrophils # 12.9 H (1.3-7.7) k/uL Lymphocytes # 1.2 (1.0-4.8) k/uL Monocytes # 0.4 (0-1.0) k/uL Eosinophils # 0.1 (0-0.7) k/uL Basophils # 0.0 (0-0.2) k/uL PT (9.0-12.0) sec INR (<1.2) APTT (22.0-30.0) sec Sodium 142 (137-145) mmol/L Potassium 4.3 (3.5-5.1) mmol/L Chloride 103 (98-107) mmol/L Carbon Dioxide 27 (22-30) mmol/L Anion Gap 12 mmol/L BUN 18 H (7-17) mg/dL Creatinine 0.54 (0.52-1.04) mg/dL Est GFR (CKD-EPI)AfAm >90 (>60 ml/min/1.73 sqM) Est GFR (CKD-EPI)NonAf >90 (>60 ml/min/1.73 sqM) Glucose 132 H (74-99) mg/dL Calcium 10.2 (8.4-10.2) mg/dL Magnesium 1.7 (1.6-2.3) mg/dL Total Bilirubin 0.3 (0.2-1.3) mg/dL AST 21 (14-36) U/L ALT 18 (9-52) U/L Alkaline Phosphatase 74 (38-126) U/L Total Creatine Kinase 73 (30-135) U/L CK-MB (CK-2) 1.7 (0.0-2.4) ng/mL CK-MB (CK-2) Rel Index 2.3 Troponin I <0.012 (0.000-0.034) ng/mL Total Protein 6.9 (6.3-8.2) g/dL Albumin 4.3 (3.5-5.0) g/dL 11/02/17 Range/Units 11:57 WBC (3.8-10.6) k/uL RBC (3.80-5.40) m/uL Hgb (11.4-16.0) gm/dL Hct (34.0-46.0) % MCV (80.0-100.0) fL MCH (25.0-35.0) pg MCHC (31.0-37.0) g/dL RDW (11.5-15.5) % Plt Count (150-450) k/uL Neutrophils % % Lymphocytes % % Monocytes % % Eosinophils % % Basophils % % Neutrophils # (1.3-7.7) k/uL Lymphocytes # (1.0-4.8) k/uL Monocytes # (0-1.0) k/uL Eosinophils # (0-0.7) k/uL Basophils # (0-0.2) k/uL PT 9.7 (9.0-12.0) sec INR 1.0 (<1.2) APTT 22.8 (22.0-30.0) sec Sodium (137-145) mmol/L Potassium (3.5-5.1) mmol/L Chloride (98-107) mmol/L Carbon Dioxide (22-30) mmol/L Anion Gap mmol/L BUN (7-17) mg/dL Creatinine (0.52-1.04) mg/dL Est GFR (CKD-EPI)AfAm (>60 ml/min/1.73 sqM) Est GFR (CKD-EPI)NonAf (>60 ml/min/1.73 sqM) Glucose (74-99) mg/dL Calcium (8.4-10.2) mg/dL Magnesium (1.6-2.3) mg/dL Total Bilirubin (0.2-1.3) mg/dL AST (14-36) U/L ALT (9-52) U/L Alkaline Phosphatase (38-126) U/L Total Creatine Kinase (30-135) U/L CK-MB (CK-2) (0.0-2.4) ng/mL CK-MB (CK-2) Rel Index Troponin I (0.000-0.034) ng/mL Total Protein (6.3-8.2) g/dL Albumin (3.5-5.0) g/dL - Radiology Data Radiology results: report reviewed (CTA chest negative), image reviewed Disposition Clinical Impression: COPD (chronic obstructive pulmonary disease) with emphysema, Anxiety, COPD ( chronic obstructive pulmonary disease), Asthma exacerbation in COPD Disposition: ADMITTED IP TO THIS HOSP Condition: Fair Referrals: Italo John MD [Primary Care Provider] - 1-2 days
[2017-11-02 12:51] LABS: Creatine Kinase MB 1.7 ng/mL (0.0-2.4); Troponin I <0.012 ng/mL (0.000-0.034)
--- NOTE | 2017-11-02 14:20 | CT ---
CT CHEST FOR PULMONARY EMBOLISM. EXAMINATION TYPE: CT angio chest DATE OF EXAM: 11/02/2017 INDICATION: YOHANA CT DLP: 139.5 mGycm, Automated exposure control for dose reduction was used. CONTRAST: Patient injected with 100 mL of Omnipaque 350. COMPARISON: NONE TECHNIQUE: CT of the chest is performed on a spiral scan at 2 mm thick sections. Study is performed with intravenous contrast timed for evaluation for pulmonary embolism. This will limit additional po rtions of the evaluation. 3-D MIP images reconstructed by the technologist are reviewed on the compu ter in the coronal and sagittal planes. FINDINGS: No persistent filling defects are evident to suggest an acute pulmonary embolism. No mediastinal or hilar adenopathy enlarged by CT criteria is evident. The ascending aorta diameter at the level of the main pulmonary artery is 3.3 cm. The main pulmonary artery diameter at the bifur cation is 2.7 cm. There is some thickening at the right apex. This may be increased from 02/07/2014. Pneumonitis change s in the posterior medial right upper lung field. Series 7 image 26 there is some peribronchial thick ening present. No bronchiectasis is evident. Consider chronic bronchitis within the differential. Limited CT section through the upper abdomen are unremarkable. IMPRESSIONS: 1. No acute pulmonary embolism. 2. Consider chronic bronchitis. 3. Some right apical thickening is increasing slightly from 2013. Monitoring is recommended. Follow-u p standard CT chest with contrast in 6 months is recommended.
--- NOTE | 2017-11-02 14:24 | CT ---
EXAMINATION TYPE: CT abdomen pelvis w con DATE OF EXAM: 11/02/2017 COMPARISON: NONE INDICATION: YOHANA and back pain DLP: 1300.6 mGycm, Automated exposure control for dose reduction was used. CONTRAST: 100 mL of Omnipaque 350. Study performed without Oral Contrast TECHNIQUE: Axial images were obtained from above the diaphragm to the pubic rami in the axial plane a t 5 mm thick sections. Reconstructed images are reviewed on the computer in the coronal plane. FINDINGS: Limited CT sections are obtained the lung bases. The lung bases are clear. CT ABDOMEN: Liver: Normal Spleen: Normal Pancreas: Normal Adrenal glands: The adrenal glands are normal. Gallbladder: Surgically absent Kidneys: No masses are evident. No hydronephrosis is present. No cysts are present. Delayed images were obtained through the kidneys, which remain unremarkable. Aorta: Vascular calcification is within the aorta. Inferior vena cava: Normal. CT PELVIS: Loops of bowel within the abdomen and pelvis are normal. Study is without oral contrast limiting the evaluation of bowel loops. Fluid-filled small bowel loops are within the mid pelvis. Mild ileus m ay be present. Fecal debris is within the colon. Appendix: Normal as visualized. Urinary bladder: Normal. Genitourinary structures: Uterus and ovaries are not identified. No free fluid is within the pelvis. Osseous structures: No suspicious lytic or sclerotic lesions. Spondylolysis of L5 is evident. IMPRESSIONS: 1. There may be some mild ileus present. No obstruction is identified.
[2017-11-02] MEDS ORDERED: LORazepam 2 MG/ML INJ IV STA (14:35)
[2017-11-02] MEDS ORDERED: IPRATROPIUM 0.5 MG/2.5 ML NEBU INHALATION STA (14:35)
[2017-11-02] MEDS ORDERED: ALBUTEROL NEBULIZED 2.5 MG/3 ML INHALATION STA (14:35)
[2017-11-02] MEDS ORDERED: SODIUM CHLORIDE 0.9% 1,000 ML IV STA ×2 (14:35)
[2017-11-02] MEDS ORDERED: MORPHINE SULFATE 4 MG/ML SYRINGE IVP STA (14:35)
[2017-11-02] MEDS ORDERED: methylPREDNISolone SOD SUCCI 125 MG/2 ML VIAL IV STA (14:35)
[2017-11-02] MEDS: SODIUM CHLORIDE 0.9% 1,000 ML IV SCH (15:33)
[2017-11-02] MEDS: methylPREDNISolone SOD SUCCI 125 MG/2 ML VIAL IV SCH (17:59)
[2017-11-02 18:02] LABS: Glucose,Whole Blood 135 mg/dL (75-99)
[2017-11-02] MEDS: MORPHINE SULFATE 4 MG/ML SYRINGE IVP PRN ×2 (18:03→21:53)
[2017-11-02] MEDS: INSULIN ASPART 100 UNIT/ML 1 ML 10 ML VIAL SQ SCH ×2 (18:03→21:53)
[2017-11-02] MEDS: PANTOPRAZOLE 40 MG TABLET PO SCH (18:07)
[2017-11-02] MEDS ORDERED: IPRATROPIUM-ALBUTEROL 3 ML NEB INHALATION SCH (20:00)
[2017-11-02 20:15] LABS: Glucose,Whole Blood 134 mg/dL (75-99)
[2017-11-02] MEDS: IPRATROPIUM-ALBUTEROL 3 ML NEB INHALATION SCH ×2 (21:07→21:08)
[2017-11-02] MEDS: SYMBICORT 160-4.5 MCG INHALER INHALATION SCH (21:08)
[2017-11-02] MEDS: ASPIRIN 325 MG TAB PO SCH (21:51)
[2017-11-02] MEDS: THEOPHYLLINE 24 HOUR 200 MG CAP.ER.24H PO SCH (21:52)
[2017-11-02] MEDS: PREGABALIN 100 MG CAP PO SCH (21:52)
[2017-11-02] MEDS: buPROPion SR 150 MG TABLET.ER PO SCH (21:52)
[2017-11-02] MEDS: risperiDONE 1 MG TAB PO SCH (21:52)
[2017-11-02] MEDS: traZODone HCL 100 MG TAB PO SCH (21:52)
[2017-11-03] MEDS: methylPREDNISolone SOD SUCCI 125 MG/2 ML VIAL IV SCH ×4 (00:13→17:53)
[2017-11-03] MEDS: SODIUM CHLORIDE 0.9% 1,000 ML IV SCH ×3 (00:16→22:01)
[2017-11-03] MEDS: MORPHINE SULFATE 4 MG/ML SYRINGE IVP PRN ×3 (02:01→09:47)
[2017-11-03] MEDS: IPRATROPIUM-ALBUTEROL 3 ML NEB INHALATION SCH ×5 (05:02→19:41)
[2017-11-03] MEDS ORDERED: NON-FORMULARY DRUG (Umeclidinium Bromide [Incruse Ellipta] 1 PUFF) INHALATION SCH (08:00)
[2017-11-03 08:01] LABS: Glucose,Whole Blood 139 mg/dL (75-99)
[2017-11-03] MEDS: SYMBICORT 160-4.5 MCG INHALER INHALATION SCH ×2 (08:16→19:41)
[2017-11-03] MEDS: INSULIN ASPART 100 UNIT/ML 1 ML 10 ML VIAL SQ SCH ×4 (08:31→22:02)
[2017-11-03] MEDS: PANTOPRAZOLE 40 MG TABLET PO SCH ×2 (08:31→17:54)
[2017-11-03] MEDS: amLODIPine 5 MG TAB PO SCH (08:32)
[2017-11-03] MEDS: ENOXAPARIN 40 MG/0.4 ML SYRINGE SQ SCH (08:32)
[2017-11-03] MEDS: VERAPAMIL SR 120 MG TABLET.ER PO SCH (08:33)
[2017-11-03] MEDS: AZITHROMYCIN 500 MG TAB PO SCH (08:33)
[2017-11-03] MEDS: THEOPHYLLINE 24 HOUR 200 MG CAP.ER.24H PO SCH ×2 (08:33→22:03)
[2017-11-03] MEDS: PREGABALIN 100 MG CAP PO SCH ×2 (08:57→22:03)
[2017-11-03] MEDS: MULTIVITAMINS, THERA 1 EACH TAB PO SCH (11:21)
[2017-11-03 11:46] LABS: Glucose,Whole Blood 132 mg/dL (75-99)
--- NOTE | 2017-11-03 12:59 | P.HPIM ---
History of Present Illness 47-year-old female presented to family physician with complaints of increasing shortness of breath and the severe thoracic pain. Patient was evaluated emergency room CT of the chest was negative. Patient continues to complain of thoracic pain. Patient is a history of severe COPD end-stage home oxygen. Patient found to have a purulent tracheal bronchitis Review of Systems Constitutional: Reports fatigue Respiratory: Reports dyspnea Past Medical History Past Medical History: Asthma, Cancer, Chest Pain / Angina, COPD, GERD/Reflux, Hyperlipidemia, Osteoarthritis (OA) Additional Past Medical History / Comment(s): COPD which is been end-stage with frequent hospitalization for acute COPD exacerbation. The patient has chronic hypoxic and hypercapnic respiratory failure. The patient is 02 dependent at 6L /m nasal cannula,L advanced COPD , cervical and lumbar spine spondylosis, chronic migraines, peptic ulcer disease/gastric ulcers, carpal tunnel disease bilaterally, herniated disc at level of C5-C6 and C7, cervical cancer, depression. Last Myocardial Infarction Date:: UNK History of Any Multi-Drug Resistant Organisms: MRSA Date of last positivie culture/infection: 06/18/2015 MDRO Source:: SPUTUM Past Surgical History: Section, Cholecystectomy, Hysterectomy, Tubal Ligation Additional Past Surgical History / Comment(s): x 2, colonoscopy with benign polypectomy. Past Anesthesia/Blood Transfusion Reactions: No Reported Reaction Additional Past Anesthesia/Blood Transfusion Reaction / Comment(s): Pt has never recieved blood. Smoking Status: Current some day smoker - Past Family History Father Family Medical History: No Reported History Additional Family Medical History / Comment(s): WAS AN ALCOHOLIC Mother Family Medical History: Cancer Additional Family Medical History / Comment(s): AT AGE 54-BOWEL CANCER Medications and Allergies Home Medications Medication Instructions Recorded Confirmed Type Albuterol Inhaler [Ventolin Hfa 2 puff INHALATION RT-QID PRN 01/03/14 11/02/17 History Inhaler] Omeprazole [PriLOSEC] 40 mg PO BID 01/03/14 11/02/17 History Multivitamins, Thera [Multivitamin 1 tab PO DAILY 12/24/14 11/02/17 History (formulary)] risperiDONE 3 mg PO HS 12/24/14 11/02/17 History traZODone HCL 300 mg PO HS 12/24/14 11/02/17 History buPROPion SR [Wellbutrin SR] 150 mg PO HS 04/30/15 11/02/17 History Aspirin [Aspirin EC] 325 mg PO HS 03/24/16 11/02/17 History Budesonide-Formot 160-4.5 Mcg 2 puff INHALATION RT-BID puff 07/13/16 11/02/17 Rx [Symbicort 160-4.5 Mcg Inhaler] Pregabalin [Lyrica] 100 mg PO BID 10/31/16 11/02/17 History Ipratropium-Albuterol Nebulize 3 ml INHALATION RT-QID neb 01/20/17 11/02/17 Rx [Duoneb 0.5 mg-3 mg/3 ml Soln] Hydrocodone/Acetaminophen [[place] 1 tab PO Q6H PRN 04/26/17 11/02/17 History 7.5-325] Theophylline 24 Hour [Akhil-24] 200 mg PO BID 07/06/17 11/02/17 History Umeclidinium [place] [Incruse 1 puff INHALATION RT-DAILY 07/06/17 11/02/17 History Ellipta] amLODIPine [Norvasc] 5 mg PO DAILY #30 tab 07/26/17 11/02/17 Rx Verapamil HCl 120 mg PO DAILY 11/02/17 11/02/17 History rOPINIRole HCL [Requip] 1 mg PO HS 11/02/17 11/02/17 History Allergies Allergy/AdvReac Type Severity Reaction Status Date / Time aripiprazole [From Abilify] Allergy Rash/Hives Verified 11/02/17 13:22 cephalexin [From Keflex] Allergy Unknown Verified 11/02/17 13:22 honey Allergy Rash/Hives Verified 11/02/17 13:22 methadone [Methadone] Allergy Itching Verified 11/02/17 13:22 naproxen Allergy Rash/Hives Verified 11/02/17 13:22 sulfamethoxazole Allergy Rash/Hives Verified 11/02/17 13:22 [From Bactrim] tetracycline [Tetracycline] Allergy Rash/Hives Verified 11/02/17 13:22 trimethoprim [From Bactrim] Allergy Rash/Hives Verified 11/02/17 13:22 adhesive tape AdvReac Rash/Hives Verified 11/02/17 13:22 tramadol HCl [From Ultram] AdvReac SEIZURES Verified 11/02/17 13:22 tromethamine AdvReac Nausea & Verified 11/02/17 13:22 Vomiting Physical Exam Vitals: Vital Signs Temp Pulse Pulse Resp BP BP Pulse Ox 11/03/17 11:40 84 11/03/17 11:26 84 11/03/17 08:28 88 11/03/17 08:17 84 11/03/17 06:35 97.6 F 83 18 143/84 96 11/03/17 05:13 76 11/03/17 05:05 92 11/03/17 00:00 83 11/02/17 23:00 97.7 F 83 16 132/76 94 L 11/02/17 21:20 92 11/02/17 21:13 100 11/02/17 17:00 98.4 F 98 22 128/78 95 11/02/17 15:48 105 H 11/02/17 15:42 92 18 11/02/17 15:33 100 11/02/17 15:29 97.6 F 92 18 127/75 98 11/02/17 15:04 90 11/02/17 14:57 79 22 143/96 98 11/02/17 14:50 90 Intake and Output 11/02/17 11/03/17 11/03/17 22:59 06:59 14:59 Intake Total 300 Balance 300 Intake: Oral 300 Other: Voiding Method Toilet # Voids 2 1 - Constitutional General appearance: mild distress, thin - EENT Eyes: PERRLA Ears: bilateral: normal - Neck Neck: normal ROM - Respiratory Respiratory: bilateral: diminished - Cardiovascular Rhythm: regular - Gastrointestinal General gastrointestinal: soft - Integumentary Integumentary: normal - Neurologic Neurologic: CNII-XII intact - Musculoskeletal complains of mid thoracic back pain Musculoskeletal: generalized weakness - Psychiatric Psychiatric: A&O x's 3, appropriate affect, intact judgment & insight Results CBC & Chem 7: 11/02/17 11:57 11/02/17 11:57 Labs: Abnormal Lab Results - Last 24 Hours (Table) 11/02/17 11/02/17 11/02/17 Range/Units 11:57 18:00 20:13 BUN 18 H (7-17) mg/dL Glucose 132 H (74-99) mg/dL POC Glucose (mg/dL) 135 H 134 H (75-99) mg/dL 11/03/17 11/03/17 Range/Units 07:22 11:35 BUN (7-17) mg/dL Glucose (74-99) mg/dL POC Glucose (mg/dL) 139 H 132 H (75-99) mg/dL Abdominal x-ray: report reviewed CT scan - chest: report reviewed Thrombosis Risk Factor Assmnt - Choose All That Apply Any of the Below Risk Factors Present?: Yes Each Factor Represents 1 point: Abnormal pulmonary function (COPD), Age 41-60 years Thrombosis Risk Factor Assessment Total Risk Factor Score: 2 Thrombosis Risk Factor Assessment Level: Low Risk Assessment and Plan Assessment: Assessment COPD end-stage acute and chronic home 02 dependent malnutrition protein calorie deficient hyperlipidemia GERD osteoarthritis purulent tracheal bronchitis midthoracic back pain Plan consultation with pulmonology
[2017-11-03] MEDS: MORPHINE ORAL SOLN 10 MG/5 ML CUP PO PRN ×3 (14:31→22:03)
--- NOTE | 2017-11-03 14:34 | P.CNPUL ---
History of Present Illness Consult date: 11/03/17 Requesting physician: Italo John Reason for consult: chest pain History of present illness: This is a very pleasant 47-year-old female patient who follows with Dr. Italo John as her primary care physician. She has a history of gastroesophageal reflux disease, osteoarthritis, hyperlipidemia, chronic pain syndrome, cervical and lumbar spine spondylosis, chronic migraines, peptic ulcer disease, depression, cervical cancer, cachexia/anorexia malnourishment with significant total body protein mass loss. She also has a history of severe oxygen dependent end-stage chronic obstructive pulmonary disease. She utilizes oxygen at 5 L/m per nasal cannula at home. She follows with Dr. Molina in our office for the same. Her baseline FEV1 value is 27% of predicted. She has been utilizing a AVAPS machine at night. She has chronic and ongoing tobacco dependence. She has a history of previous MRSA pneumonia and strep pneumonias. She has had multiple admissions for COPD exacerbations. She was most recently discharged in July 2017. She had a follow-up appointment with us in August 2017. At that time she was doing quite a bit better. She has been maintained on a combination of Incruse, Symbicort Daliresp, albuterol and maintenance prednisone at 20 mg daily. Unfortunately she does continue to smoke. She presented here to the emergency room yesterday with complaints of back pain between her shoulder blades. This was last seen 10-15 minutes at a time. No really associated symptoms. No worsening shortness of breath. No diaphoresis. No nausea or vomiting. She denies any muscularskeletal pain secondary to coughing no trauma. Chest x-ray reveals no acute pulmonary process. There is evidence of COPD. CT angiogram revealed no acute pulmonary embolism. There is some chronic bronchitis. There was right apical thickening. ET scan of the abdomen and pelvis revealed some mild ileus present but no obstruction. EKG reveals normal sinus rhythm with no significant ST or T -wave abnormalities. Thoracic spine x-rays are pending. White count 14.7. Hemoglobin 14.7. Creatinine 0.45. Troponin negative. The cultures revealed no growth. She is maintaining good O2 saturations in the 90s on 6 L/m per nasal cannula. She does have her home average volume assured pressure support ( AVAPS) machine which she wears at night and during the day while napping. Review of Systems Constitutional: Reports anorexia, Reports malaise, Reports weakness Eyes: denies blurred vision, denies decreased vision Ears: deny: decreased hearing Ears, nose, mouth and throat: Denies headache, Denies sore throat Cardiovascular: Reports chest pain, Reports shortness of breath Respiratory: Reports cough, Reports dyspnea, Reports home oxygen Gastrointestinal: Denies abdominal pain, Denies diarrhea, Denies nausea, Denies vomiting Genitourinary: Denies dysuria, Denies hematuria Musculoskeletal: Reports limitation of motion Integumentary: Denies pruritus, Denies rash Neurological: Denies numbness, Denies weakness Psychiatric: Denies anxiety, Denies depression Endocrine: Denies fatigue, Denies weight change Hematologic/Lymphatic: Reports as per HPI Allergic/Immunologic: Reports as per HPI Past Medical History Past Medical History: Asthma, Cancer, Chest Pain / Angina, COPD, GERD/Reflux, Hyperlipidemia, Osteoarthritis (OA) Additional Past Medical History / Comment(s): COPD which is been end-stage with frequent hospitalization for acute COPD exacerbation. The patient has chronic hypoxic and hypercapnic respiratory failure. The patient is 02 dependent at 6L /m nasal cannula, AVAPS at night, advanced COPD , cervical and lumbar spine spondylosis, chronic migraines, peptic ulcer disease/gastric ulcers, carpal tunnel disease bilaterally, herniated disc at level of C5-C6 and C7, cervical cancer, depression. Last Myocardial Infarction Date:: UNK History of Any Multi-Drug Resistant Organisms: MRSA Date of last positivie culture/infection: 06/18/2015 MDRO Source:: SPUTUM Past Surgical History: Section, Cholecystectomy, Hysterectomy, Tubal Ligation Additional Past Surgical History / Comment(s): x 2, colonoscopy with benign polypectomy. Past Anesthesia/Blood Transfusion Reactions: No Reported Reaction Additional Past Anesthesia/Blood Transfusion Reaction / Comment(s): Pt has never recieved blood. Smoking Status: Current some day smoker - Past Family History Father Family Medical History: No Reported History Additional Family Medical History / Comment(s): WAS AN ALCOHOLIC Mother Family Medical History: Cancer Additional Family Medical History / Comment(s): AT AGE 54-BOWEL CANCER Medications and Allergies Home Medications Medication Instructions Recorded Confirmed Type Albuterol Inhaler [Ventolin Hfa 2 puff INHALATION RT-QID PRN 01/03/14 11/02/17 History Inhaler] Omeprazole [PriLOSEC] 40 mg PO BID 01/03/14 11/02/17 History Multivitamins, Thera [Multivitamin 1 tab PO DAILY 12/24/14 11/02/17 History (formulary)] risperiDONE 3 mg PO HS 12/24/14 11/02/17 History traZODone HCL 300 mg PO HS 12/24/14 11/02/17 History buPROPion SR [Wellbutrin SR] 150 mg PO HS 04/30/15 11/02/17 History Aspirin [Aspirin EC] 325 mg PO HS 03/24/16 11/02/17 History Budesonide-Formot 160-4.5 Mcg 2 puff INHALATION RT-BID puff 07/13/16 11/02/17 Rx [Symbicort 160-4.5 Mcg Inhaler] Pregabalin [Lyrica] 100 mg PO BID 10/31/16 11/02/17 History Ipratropium-Albuterol Nebulize 3 ml INHALATION RT-QID neb 01/20/17 11/02/17 Rx [Duoneb 0.5 mg-3 mg/3 ml Soln] Hydrocodone/Acetaminophen [[place] 1 tab PO Q6H PRN 04/26/17 11/02/17 History 7.5-325] Theophylline 24 Hour [Akhil-24] 200 mg PO BID 07/06/17 11/02/17 History Umeclidinium [place] [Incruse 1 puff INHALATION RT-DAILY 07/06/17 11/02/17 History Ellipta] amLODIPine [Norvasc] 5 mg PO DAILY #30 tab 07/26/17 11/02/17 Rx Verapamil HCl 120 mg PO DAILY 11/02/17 11/02/17 History rOPINIRole HCL [Requip] 1 mg PO HS 11/02/17 11/02/17 History Allergies Allergy/AdvReac Type Severity Reaction Status Date / Time aripiprazole [From Abilify] Allergy Rash/Hives Verified 11/02/17 13:22 cephalexin [From Keflex] Allergy Unknown Verified 11/02/17 13:22 honey Allergy Rash/Hives Verified 11/02/17 13:22 methadone [Methadone] Allergy Itching Verified 11/02/17 13:22 naproxen Allergy Rash/Hives Verified 11/02/17 13:22 sulfamethoxazole Allergy Rash/Hives Verified 11/02/17 13:22 [From Bactrim] tetracycline [Tetracycline] Allergy Rash/Hives Verified 11/02/17 13:22 trimethoprim [From Bactrim] Allergy Rash/Hives Verified 11/02/17 13:22 adhesive tape AdvReac Rash/Hives Verified 11/02/17 13:22 tramadol HCl [From Ultram] AdvReac SEIZURES Verified 11/02/17 13:22 tromethamine AdvReac Nausea & Verified 11/02/17 13:22 Vomiting Physical Exam Vitals: Vital Signs Temp Pulse Pulse Resp BP BP Pulse Ox 11/03/17 11:40 84 11/03/17 11:26 84 11/03/17 08:28 88 11/03/17 08:17 84 11/03/17 06:35 97.6 F 83 18 143/84 96 11/03/17 05:13 76 11/03/17 05:05 92 11/03/17 00:00 83 11/02/17 23:00 97.7 F 83 16 132/76 94 L 11/02/17 21:20 92 11/02/17 21:13 100 11/02/17 17:00 98.4 F 98 22 128/78 95 11/02/17 15:48 105 H 11/02/17 15:42 92 18 11/02/17 15:33 100 11/02/17 15:29 97.6 F 92 18 127/75 98 11/02/17 15:04 90 11/02/17 14:57 79 22 143/96 98 11/02/17 14:50 90 Intake and Output 11/02/17 11/03/17 11/03/17 22:59 06:59 14:59 Intake Total 300 Balance 300 Intake: Oral 300 Other: Voiding Method Toilet # Voids 2 1 GENERAL EXAM: Frail, cachectic. Appears older than stated age. Alert, active, comfortable in no apparent distress. HEAD: Normocephalic. EYES: Normal reaction of pupils, equal size. NOSE: Clear with pink turbinates. THROAT: No erythema or exudates. NECK: No masses, no JVD. CHEST: No chest wall deformity. Thoracic pain between the shoulder blades. LUNGS: Equal air entry with no crackles, wheeze, rhonchi or dullness. CVS: S1 and S2 normal with no audible murmur, regular rhythm. ABDOMEN: No hepatosplenomegaly, normal bowel sounds, no guarding or rigidity. SPINE: Kyphoscoliosis SKIN: No rashes CENTRAL NERVOUS SYSTEM: No focal deficits, tone is normal in all 4 extremities. EXTREMITIES: There is no peripheral edema. No clubbing, no cyanosis. Peripheral pulses are intact. Results - Laboratory Findings CBC and BMP: 11/02/17 11:57 11/02/17 11:57 PT/INR, D-dimer PT 9.7 sec (9.0-12.0) 11/02/17 11:57 INR 1.0 (<1.2) 11/02/17 11:57 Abnormal lab findings: Abnormal Labs 11/02/17 11/02/17 11/02/17 11:57 11:57 18:00 WBC 14.7 H RDW 15.7 H Plt Count 465 H Neutrophils # 12.9 H BUN 18 H Glucose 132 H POC Glucose (mg/dL) 135 H 11/02/17 11/03/17 11/03/17 20:13 07:22 11:35 WBC RDW Plt Count Neutrophils # BUN Glucose POC Glucose (mg/dL) 134 H 139 H 132 H - Diagnostic Findings Chest x-ray: image reviewed Assessment and Plan Assessment: Impression: #1 Thoracic spine pain, appears musculoskeletal in nature. X-ray pending. Acute coronary syndrome ruled out. Pulmonary embolism ruled out. #2 Severe oxygen dependent and steroid dependent end-stage chronic obstructive pulmonary disease with an FEV1 value 27% of predicted. Currently inactive and stable. On home oxygen at 6 L/m. #3 Severe hypercapnic respiratory failure, utilizing an average volume assured pressure support (AVAPS) device in the outpatient setting. #4 Chronic and ongoing tobacco dependence. #5 Anorexia/cachexia syndrome. #6 Chronic pain syndrome. #7 Bipolar disorder. #8 Hyperlipidemia. Plan: The patient was seen and evaluated by Dr. Trujillo. Her chest x-ray, computed tomography scan, labs were all reviewed. Her COPD is actually controlled at this point. She has no pulmonary complaints. Thoracic spine x-ray is pending. On oral morphine for pain control. Cautious use of narcotics regarding her hypercapnic respiratory failure. We'll continue with her current medications. She is on Lovenox for DVT prophylaxis. Will increase her activity as tolerated. We'll continue to follow. I, the cosigning physician, performed a history & physical examination of the patient. Lungs sounds are clear, diminished throughout. Maintaining good O2 saturations in the 90s on X liters per minute per nasal cannula. I discussed the assessment and plan of care with my nurse practitioner, Michaela Ribera. I attest to the above note as dictated by her. Time with Patient: Greater than 30
--- NOTE | 2017-11-03 17:00 | XR ---
EXAMINATION TYPE: XR thoracic spine 2V DATE OF EXAM: 11/03/2017 COMPARISON: 11/12/2012 and MRI 07/30/2017 HISTORY: 47-year-old female with thoracic pain TECHNIQUE: 3 views FINDINGS: There appear to be small L1 ribs. All pedicles are visualized. Mild endplate spondylosis throughout. From 2012, there is new moderate anterior wedging of T8 but stable from 07/30/2017. Vertebral minimal anterior wedging of probable T9 vertebral body, is new from 07/30/2017. Accentuated thoracic kyphosis here. Alignment maintained. IMPRESSION: Chronic moderate anterior compression deformity of T8, seen on 07/30/2017. Minimal superior endplate c ompression fracture of T9 is age indeterminate but new from 07/30/2017.
[2017-11-03 17:09] LABS: Glucose,Whole Blood 112 mg/dL (75-99)
[2017-11-03 21:21] LABS: Glucose,Whole Blood 148 mg/dL (75-99)
[2017-11-03] MEDS: ASPIRIN 325 MG TAB PO SCH (22:02)
[2017-11-03] MEDS: buPROPion SR 150 MG TABLET.ER PO SCH (22:02)
[2017-11-03] MEDS: traZODone HCL 100 MG TAB PO SCH (22:03)
[2017-11-03] MEDS: risperiDONE 1 MG TAB PO SCH (22:03)
[2017-11-04] MEDS: methylPREDNISolone SOD SUCCI 125 MG/2 ML VIAL IV SCH ×5 (00:49→23:57)
[2017-11-04] MEDS: MORPHINE ORAL SOLN 10 MG/5 ML CUP PO PRN ×6 (02:07→21:51)
[2017-11-04] MEDS: ALBUTEROL NEBULIZED 2.5 MG/3 ML INHALATION PRN (05:02)
[2017-11-04] MEDS: SODIUM CHLORIDE 0.9% 1,000 ML IV SCH (06:00)
[2017-11-04] MEDS: INSULIN ASPART 100 UNIT/ML 1 ML 10 ML VIAL SQ SCH ×4 (07:38→21:56)
[2017-11-04 07:58] LABS: Glucose,Whole Blood 120 mg/dL (75-99)
[2017-11-04] MEDS: ENOXAPARIN 40 MG/0.4 ML SYRINGE SQ SCH (08:10)
[2017-11-04] MEDS: amLODIPine 5 MG TAB PO SCH (08:11)
[2017-11-04] MEDS: THEOPHYLLINE 24 HOUR 200 MG CAP.ER.24H PO SCH ×2 (08:11→21:51)
[2017-11-04] MEDS: PANTOPRAZOLE 40 MG TABLET PO SCH ×2 (08:11→17:54)
[2017-11-04] MEDS: PREGABALIN 100 MG CAP PO SCH ×2 (08:11→21:51)
[2017-11-04] MEDS: VERAPAMIL SR 120 MG TABLET.ER PO SCH (08:11)
[2017-11-04] MEDS: AZITHROMYCIN 500 MG TAB PO SCH (08:11)
[2017-11-04] MEDS: IPRATROPIUM-ALBUTEROL 3 ML NEB INHALATION SCH ×4 (08:35→20:11)
[2017-11-04] MEDS: SYMBICORT 160-4.5 MCG INHALER INHALATION SCH ×2 (08:35→20:11)
--- NOTE | 2017-11-04 11:57 | P.PN ---
Subjective Progress Note Date: 11/04/17 Principal diagnosis: Thoracic back pain This is a very pleasant 47-year-old female patient who follows with Dr. Italo John as her primary care physician. She has a history of gastroesophageal reflux disease, osteoarthritis, hyperlipidemia, chronic pain syndrome, cervical and lumbar spine spondylosis, chronic migraines, peptic ulcer disease, depression, cervical cancer, cachexia/anorexia malnourishment with significant total body protein mass loss. She also has a history of severe oxygen dependent end-stage chronic obstructive pulmonary disease. She utilizes oxygen at 5 L/m per nasal cannula at home. She follows with Dr. Molina in our office for the same. Her baseline FEV1 value is 27% of predicted. She has been utilizing a AVAPS machine at night. She has chronic and ongoing tobacco dependence. She has a history of previous MRSA pneumonia and strep pneumonias. She has had multiple admissions for COPD exacerbations. She was most recently discharged in July 2017. She had a follow-up appointment with us in August 2017. At that time she was doing quite a bit better. She has been maintained on a combination of Incruse, Symbicort Daliresp, albuterol and maintenance prednisone at 20 mg daily. Unfortunately she does continue to smoke. She presented here to the emergency room yesterday with complaints of back pain between her shoulder blades. This was last seen 10-15 minutes at a time. No really associated symptoms. No worsening shortness of breath. No diaphoresis. No nausea or vomiting. She denies any muscularskeletal pain secondary to coughing no trauma. Chest x-ray reveals no acute pulmonary process. There is evidence of COPD. CT angiogram revealed no acute pulmonary embolism. There is some chronic bronchitis. There was right apical thickening. CT scan of the abdomen and pelvis revealed some mild ileus present but no obstruction. EKG reveals normal sinus rhythm with no significant ST or T -wave abnormalities. Thoracic spine x-rays are pending. White count 14.7. Hemoglobin 14.7. Creatinine 0.45. Troponin negative. The cultures revealed no growth. She is maintaining good O2 saturations in the 90s on 6 L/m per nasal cannula. She does have her home average volume assured pressure support ( AVAPS) machine which she wears at night and during the day while napping. The patient is seen again today 11/04/2017 in follow-up on the regular medical floor. She is awake and alert in no acute distress. She did utilize her AVAPS machine throughout the night. She is utilizing 6 L/m per nasal cannula and maintaining good O2 saturations in the high 90s. She's been afebrile. Hemodynamically stable. She denies any worsening shortness of breath, cough or congestion. Her pulmonary status is fairly stable for her. Her main complaint is that of continued back pain. Orthopedics have been consulted. Objective - Vital Signs Vital signs: Vital Signs Temp 96.9 F L 11/04/17 05:54 Pulse 77 11/04/17 08:45 Resp 18 11/04/17 05:54 BP 133/77 11/04/17 05:54 Pulse Ox 99 11/04/17 05:54 Intake & Output 11/03/17 11/04/17 11/04/17 18:59 06:59 18:59 Intake Total 720 Balance 720 Intake: Oral 720 Other: Voiding Method Toilet # Voids 3 1 - Exam GENERAL EXAM: Frail, cachectic. Appears older than stated age. Alert, active, comfortable in no apparent distress. HEAD: Normocephalic. EYES: Normal reaction of pupils, equal size. NOSE: Clear with pink turbinates. THROAT: No erythema or exudates. NECK: No masses, no JVD. CHEST: No chest wall deformity. Thoracic pain between the shoulder blades. LUNGS: Equal air entry with no crackles, wheeze, rhonchi or dullness. CVS: S1 and S2 normal with no audible murmur, regular rhythm. ABDOMEN: No hepatosplenomegaly, normal bowel sounds, no guarding or rigidity. SPINE: Kyphoscoliosis SKIN: No rashes CENTRAL NERVOUS SYSTEM: No focal deficits, tone is normal in all 4 extremities. EXTREMITIES: There is no peripheral edema. No clubbing, no cyanosis. Peripheral pulses are intact. - Labs CBC & Chem 7: 11/02/17 11:57 11/02/17 11:57 Labs: Abnormal Lab Results - Last 24 Hours (Table) 11/03/17 11/03/17 11/04/17 Range/Units 17:02 21:19 07:34 POC Glucose (mg/dL) 112 H 148 H 120 H (75-99) mg/dL Microbiology - Last 24 Hours (Table) 11/02/17 11:57 Blood Culture - Preliminary Blood No Growth after 24 hours Assessment and Plan Assessment: Impression: #1 Thoracic spine pain, appears musculoskeletal in nature. X-ray pending. Acute coronary syndrome ruled out. Pulmonary embolism ruled out. #2 Severe oxygen dependent and steroid dependent end-stage chronic obstructive pulmonary disease with an FEV1 value 27% of predicted. Currently inactive and stable. On home oxygen at 6 L/m. #3 Severe hypercapnic respiratory failure, utilizing an average volume assured pressure support (AVAPS) device in the outpatient setting. #4 Chronic and ongoing tobacco dependence. #5 Anorexia/cachexia syndrome. #6 Chronic pain syndrome. #7 Bipolar disorder. #8 Hyperlipidemia. Plan: The patient was seen and evaluated by Dr. Trujillo. Her COPD is actually controlled at this point. She has no pulmonary complaints. Thoracic spine x- ray revealed chronic moderate anterior compression deformity of T8 and minimal endplate compression fracture of T9. Orthopedic consult is pending. We'll continue with her current medications. She is on Lovenox for DVT prophylaxis. Will increase her activity as tolerated. We'll continue to follow. I, the cosigning physician, performed a history & physical examination of the patient. Lungs sounds are clear, diminished throughout. Maintaining good O2 saturations in the 90s on 6 liters per minute per nasal cannula. I discussed the assessment and plan of care with my nurse practitioner, Michaela Ribera. I attest to the above note as dictated by her.
[2017-11-04 12:03] LABS: Glucose,Whole Blood 95 mg/dL (75-99)
[2017-11-04 13:37] VITALS: BMI 21.2
[2017-11-04] MEDS: MULTIVITAMINS, THERA 1 EACH TAB PO SCH (13:57)
[2017-11-04] MEDS: HYDROcodone/APAP 5-325MG 1 EACH TAB PO PRN (16:12)
[2017-11-04 17:35] LABS: Glucose,Whole Blood 156 mg/dL (75-99)
--- NOTE | 2017-11-04 20:59 | P.PN ---
Subjective Progress Note Date: 11/04/17 Progress note being dictated for Dr. Kaur. Interval history: This a 47-year-old female admitted with thoracic spine pain, end-stage COPD, chronic hypercapnic respiratory failure and multiple other medical issues. Complains of ongoing back pain. Orthopedics consult in place with recommendations pending. Maintaining O2 sats of high 90s on 6 L nasal cannula, plus uses herAVAPS at night. Denies chest pain, palpitations or increasing shortness of breath. Afebrile, preliminary blood cultures no growth at 48 hours. Objective - Vital Signs Vital signs: Vital Signs Temp 97.3 F L 11/04/17 14:43 Pulse 79 11/04/17 16:05 Resp 18 11/04/17 15:55 BP 100/55 11/04/17 14:43 Pulse Ox 99 11/04/17 14:43 Intake & Output 11/03/17 11/04/17 11/04/17 18:59 06:59 18:59 Intake Total 720 Balance 720 Weight 56.245 kg Intake: Oral 720 Other: Voiding Method Toilet # Voids 3 1 2 - Exam PHYSICAL EXAM: VITAL SIGNS: As above GENERAL: Sitting up in bed, cachectic, no acute distress HEENT: Conjunctivae normal. eyes normal. NECK: No JVD. No thyroid enlargement. No LNs CARDIOVASCULAR: S1, S2 muffled. No murmur RESPIRATION: Breath sounds diminished in the bases. No rhonchi or crackles. ABDOMEN: Soft, nontender . No guarding. no masses palpable.Bowel sounds heard. SPINE: Kyphoscoliosis LEGS: No edema. no swelling PSYCHIATRY: Alert and oriented -3, mood and affect normal. NERVOUS SYSTEM: Cranial N 2-12 grossly normal. Moves all 4 limbs. Diffuse weakness No focal deficits. Skin: no rash - Labs CBC & Chem 7: 11/02/17 11:57 11/02/17 11:57 Labs: Abnormal Lab Results - Last 24 Hours (Table) 11/03/17 11/04/17 Range/Units 21:19 07:34 POC Glucose (mg/dL) 148 H 120 H (75-99) mg/dL Microbiology - Last 24 Hours (Table) 11/02/17 11:57 Blood Culture - Preliminary Blood No Growth after 48 hours Assessment and Plan Assessment: #1 Thoracic spine pain, appears musculoskeletal. Minimal superior endplate compression fracture of T9 new from 07/30/2017 per X-ray. #2 Severe oxygen dependent and steroid dependent end-stage chronic obstructive pulmonary disease. Currently inactive and stable. #3 Severe hypercapnic respiratory failure, utilizing an average volume assured pressure support (AVAPS) device in the outpatient setting.On home oxygen at 6 L #4 Ongoing tobacco dependence. #5 Chronic pain syndrome. #6 Bipolar disorder. Plan: Continue on current medication regime ,monitoring and symptomatic treatment. Maintain nebulized bronchodilators, antibiotics. Orthopedic consult in place with recommendations pending. Further recommendations to follow. The impression and plan of care has been dictated as directed. : I performed a history and examination of this patient, discussed the same with the dictator. I agree with the dictator's note ,documented as a scribe. Any additional findings or plans will be noted.
[2017-11-04 21:09] LABS: Glucose,Whole Blood 151 mg/dL (75-99)
[2017-11-04] MEDS: buPROPion SR 150 MG TABLET.ER PO SCH (21:49)
[2017-11-04] MEDS: ASPIRIN 325 MG TAB PO SCH (21:49)
[2017-11-04] MEDS: traZODone HCL 100 MG TAB PO SCH (21:50)
[2017-11-04] MEDS: risperiDONE 1 MG TAB PO SCH (21:50)
[2017-11-05] MEDS: MORPHINE ORAL SOLN 10 MG/5 ML CUP PO PRN ×4 (01:52→14:06)
[2017-11-05] MEDS: HYDROcodone/APAP 5-325MG 1 EACH TAB PO PRN ×2 (01:54→08:20)
[2017-11-05] MEDS: ALBUTEROL NEBULIZED 2.5 MG/3 ML INHALATION PRN (05:37)
[2017-11-05] MEDS: methylPREDNISolone SOD SUCCI 125 MG/2 ML VIAL IV SCH (06:03)
[2017-11-05 07:30] LABS: Glucose,Whole Blood 132 mg/dL (75-99)
[2017-11-05 07:42] VITALS: TEMP 98.7
[2017-11-05] MEDS: INSULIN ASPART 100 UNIT/ML 1 ML 10 ML VIAL SQ SCH ×2 (08:16→13:09)
[2017-11-05] MEDS: ENOXAPARIN 40 MG/0.4 ML SYRINGE SQ SCH (08:16)
[2017-11-05] MEDS: VERAPAMIL SR 120 MG TABLET.ER PO SCH (08:17)
[2017-11-05] MEDS: MULTIVITAMINS, THERA 1 EACH TAB PO SCH (08:17)
[2017-11-05] MEDS: IPRATROPIUM-ALBUTEROL 3 ML NEB INHALATION SCH ×3 (08:17→15:50)
[2017-11-05] MEDS: amLODIPine 5 MG TAB PO SCH (08:17)
[2017-11-05] MEDS: THEOPHYLLINE 24 HOUR 200 MG CAP.ER.24H PO SCH (08:17)
[2017-11-05] MEDS: PANTOPRAZOLE 40 MG TABLET PO SCH (08:17)
[2017-11-05] MEDS: AZITHROMYCIN 500 MG TAB PO SCH (08:17)
[2017-11-05] MEDS: SYMBICORT 160-4.5 MCG INHALER INHALATION SCH (08:18)
[2017-11-05] MEDS: PREGABALIN 100 MG CAP PO SCH (08:23)
[2017-11-05 08:24] LABS: Basophils % (A) 0 %; Eosinophils # (A) 0.1 k/uL (0-0.7); Eosinophils % (A) 1 %; HCT 44.6 % (34.0-46.0); HGB 14.3 gm/dL (11.4-16.0); Lymphocytes # (A) 0.7 k/uL (1.0-4.8); Lymphocytes % (A) 5 %; MCH 27.7 pg (25.0-35.0); MCV 86.7 fL (80.0-100.0); Mean Platelet Volume 6.5; Monocytes # (A) 0.7 k/uL (0-1.0); Monocytes % (A) 5 %; Neutrophils # (A) 12.9 k/uL (1.3-7.7); Neutrophils % (A) 89 %; Platelet Count 460 k/uL (150-450); RBC 5.15 m/uL (3.80-5.40); RDW 15.7 % (11.5-15.5); WBC 14.5 k/uL (3.8-10.6)
[2017-11-05 08:45] LABS: Anion Gap 11 mmol/L; Blood Urea Nitrogen 31 mg/dL (7-17); Calcium 10.2 mg/dL (8.4-10.2); Carbon Dioxide 24 mmol/L (22-30); Chloride 104 mmol/L (98-107); Glucose 117 mg/dL (74-99); Potassium 4.9 mmol/L (3.5-5.1); Sodium 139 mmol/L (137-145)
[2017-11-05] MEDS ORDERED: CALCIUM CARB-VIT D 250MG-125UN 1 EACH TAB PO SCH (09:00)
--- NOTE | 2017-11-05 09:03 | P.HPOR ---
History of Present Illness H&P Date: 11/05/17 Chief Complaint: Shortness of breath and thoracic back pain Patient is a 47-year-old female with chronic COPD/emphysema and on chronic steroid medication who presented with shortness of breath and severe back pain. She denies any specific fall or trauma. She says her pain is excruciating for her at the middle of her back. She denies any upper extremity numbing tingling or weakness or any lower extremity numbing tingling or weakness. She denies any changes in bowel bladder function. She denies any nausea or vomiting. She is not sure of any specific injury and feels that she may have coughed virtually hard and had severe back pain after that. She's been having pain over the past few months but worsened a few days ago. Review of Systems Complains of pain in the middle of her back particularly when she coughs or sneezes. She has been able to sit up but has pain at the middle of her back. She denies any weakness in her lower extremity is. She denies any numbness or tingling. She denies any change in bowel bladder function. Past Medical History Past Medical History: Asthma, Cancer, Chest Pain / Angina, COPD, GERD/Reflux, Hyperlipidemia, Osteoarthritis (OA) Additional Past Medical History / Comment(s): COPD which is been end-stage with frequent hospitalization for acute COPD exacerbation. The patient has chronic hypoxic and hypercapnic respiratory failure. The patient is 02 dependent at 6L /m nasal cannula, AVAPS at night, advanced COPD , cervical and lumbar spine spondylosis, chronic migraines, peptic ulcer disease/gastric ulcers, carpal tunnel disease bilaterally, herniated disc at level of C5-C6 and C7, cervical cancer, depression. Last Myocardial Infarction Date:: UNK History of Any Multi-Drug Resistant Organisms: MRSA Date of last positivie culture/infection: 06/18/2015 MDRO Source:: SPUTUM Past Surgical History: Section, Cholecystectomy, Hysterectomy, Tubal Ligation Additional Past Surgical History / Comment(s): x 2, colonoscopy with benign polypectomy. Past Anesthesia/Blood Transfusion Reactions: No Reported Reaction Additional Past Anesthesia/Blood Transfusion Reaction / Comment(s): Pt has never recieved blood. Smoking Status: Current some day smoker - Past Family History Father Family Medical History: No Reported History Additional Family Medical History / Comment(s): WAS AN ALCOHOLIC Mother Family Medical History: Cancer Additional Family Medical History / Comment(s): AT AGE 54-BOWEL CANCER Medications and Allergies Home Medications Medication Instructions Recorded Confirmed Type Albuterol Inhaler [Ventolin Hfa 2 puff INHALATION RT-QID PRN 01/03/14 11/02/17 History Inhaler] Omeprazole [PriLOSEC] 40 mg PO BID 01/03/14 11/02/17 History Multivitamins, Thera [Multivitamin 1 tab PO DAILY 12/24/14 11/02/17 History (formulary)] risperiDONE 3 mg PO HS 12/24/14 11/02/17 History traZODone HCL 300 mg PO HS 12/24/14 11/02/17 History buPROPion SR [Wellbutrin SR] 150 mg PO HS 04/30/15 11/02/17 History Aspirin [Aspirin EC] 325 mg PO HS 03/24/16 11/02/17 History Budesonide-Formot 160-4.5 Mcg 2 puff INHALATION RT-BID puff 07/13/16 11/02/17 Rx [Symbicort 160-4.5 Mcg Inhaler] Pregabalin [Lyrica] 100 mg PO BID 10/31/16 11/02/17 History Ipratropium-Albuterol Nebulize 3 ml INHALATION RT-QID neb 01/20/17 11/02/17 Rx [Duoneb 0.5 mg-3 mg/3 ml Soln] Hydrocodone/Acetaminophen [[place] 1 tab PO Q6H PRN 04/26/17 11/02/17 History 7.5-325] Theophylline 24 Hour [Akhil-24] 200 mg PO BID 07/06/17 11/02/17 History Umeclidinium [place] [Incruse 1 puff INHALATION RT-DAILY 07/06/17 11/02/17 History Ellipta] amLODIPine [Norvasc] 5 mg PO DAILY #30 tab 07/26/17 11/02/17 Rx Verapamil HCl 120 mg PO DAILY 11/02/17 11/02/17 History rOPINIRole HCL [Requip] 1 mg PO HS 11/02/17 11/02/17 History Allergies Allergy/AdvReac Type Severity Reaction Status Date / Time aripiprazole [From Abiliy] Allergy Rash/Hives Verified 11/02/17 13:22 cephalexin [From Keflex] Allergy Unknown Verified 11/02/17 13:22 honey Allergy Rash/Hives Verified 11/02/17 13:22 methadone [Methadone] Allergy Itching Verified 11/02/17 13:22 naproxen Allergy Rash/Hives Verified 11/02/17 13:22 sulfamethoxazole Allergy Rash/Hives Verified 11/02/17 13:22 [From Bactrim] tetracycline [Tetracycline] Allergy Rash/Hives Verified 11/02/17 13:22 trimethoprim [From Bactrim] Allergy Rash/Hives Verified 11/02/17 13:22 adhesive tape AdvReac Rash/Hives Verified 11/02/17 13:22 tramadol HCl [From Ultram] AdvReac SEIZURES Verified 11/02/17 13:22 tromethamine AdvReac Nausea & Verified 11/02/17 13:22 Vomiting Physical Examination Osteopathic Statement: *. No significant issues noted on an osteopathic structural exam other than those noted in the History and Physical/Consult. - L Spine: dermatomal strength & reflexes bilateral Strength: hip flexion: 5/5 (Her back in her skin is clear. There is no open wounds lacerations or abrasions or rashes. She is tender to palpation over mid thoracic spine along the midline. She is nontender to palpation in her upper thoracic spine or at her neck. She is nontender over her lumbar spine. Her upper extremities have full active and passive range of motion as do her lower extremity. She has 5 over 5 strength bilateral upper and lower extremities. She has no clonus no hyperreflexia.) Results - Labs Labs: Abnormal Lab Results - Last 24 Hours (Table) 11/04/17 11/04/17 11/05/17 Range/Units 17:19 20:48 07:17 WBC (3.8-10.6) k/uL RDW (11.5-15.5) % Plt Count (150-450) k/uL Neutrophils # (1.3-7.7) k/uL Lymphocytes # (1.0-4.8) k/uL BUN (7-17) mg/dL Creatinine (0.52-1.04) mg/dL Glucose (74-99) mg/dL POC Glucose (mg/dL) 156 H 151 H 132 H (75-99) mg/dL 11/05/17 11/05/17 Range/Units 07:40 07:40 WBC 14.5 H (3.8-10.6) k/uL RDW 15.7 H (11.5-15.5) % Plt Count 460 H (150-450) k/uL Neutrophils # 12.9 H (1.3-7.7) k/uL Lymphocytes # 0.7 L (1.0-4.8) k/uL BUN 31 H (7-17) mg/dL Creatinine 0.50 L (0.52-1.04) mg/dL Glucose 117 H (74-99) mg/dL POC Glucose (mg/dL) (75-99) mg/dL Microbiology - Last 24 Hours (Table) 11/02/17 11:57 Blood Culture - Preliminary Blood No Growth after 48 hours H & H 11/02/17 11/05/17 Range/Units 11:57 07:40 Hgb 14.7 14.3 (11.4-16.0) gm/dL Hct 45.9 44.6 (34.0-46.0) % Coagulation 11/02/17 Range/Units 11:57 INR 1.0 (<1.2) Result Diagrams: 11/05/17 07:40 11/05/17 07:40 - Diagnostic results Lumbar AP/lateral x-ray with flexion/extension views: report reviewed, image reviewed (X-rays of the thoracic spine are reviewed and reports reviewed as well. There is evidence of osteopenia as well as a compression deformity at T8 and T9. Apparently the T8 fracture was present into July 2017 but the T9 fracture is new since that time. There is approximately 30% height loss at each of these anteriorly.) Assessment and Plan Assessment: Acute T9 compression fracture Subacute T8 compression fracture Osteopenia COPD exacerbation Plan: The patient has new fracture at T9 and a subacute fracture at T8 which are causing her significant back pain issues. I would like to treat these conservatively particular given the increased risk that she would have with any surgical intervention. She does have some risk with bracing has well given her COPD and lung status and anterior braces well constrictor chest. There is however a brace that is posteriorly based which is called a SPINOMED TLSO Brace. This Spinomed TLSO brace may be appropriate for her and may give her some support of her fractures as well as some pain relief as they heal while keeping the pressure off of her chest. We will order this for her. It is okay for her to obtain this brace on an outpatient basis if she is able to be discharged. It is okay for her to be discharged from a spine standpoint with follow-up in approximately 2-3 weeks with her brace. It is okay for her to mobilize with the brace on when she obtains it. The patient does have chronic pain issues in the past and we can manage her fracture care but I would prefer if she has treatment for her pain with her primary physician or with pain management. Time with Patient: Greater than 30
--- NOTE | 2017-11-05 11:50 | P.PN ---
Subjective Progress Note Date: 11/05/17 Principal diagnosis: Thoracic back pain This is a very pleasant 47-year-old female patient who follows with Dr. Italo John as her primary care physician. She has a history of gastroesophageal reflux disease, osteoarthritis, hyperlipidemia, chronic pain syndrome, cervical and lumbar spine spondylosis, chronic migraines, peptic ulcer disease, depression, cervical cancer, cachexia/anorexia malnourishment with significant total body protein mass loss. She also has a history of severe oxygen dependent end-stage chronic obstructive pulmonary disease. She utilizes oxygen at 5 L/m per nasal cannula at home. She follows with Dr. Molina in our office for the same. Her baseline FEV1 value is 27% of predicted. She has been utilizing a AVAPS machine at night. She has chronic and ongoing tobacco dependence. She has a history of previous MRSA pneumonia and strep pneumonias. She has had multiple admissions for COPD exacerbations. She was most recently discharged in July 2017. She had a follow-up appointment with us in August 2017. At that time she was doing quite a bit better. She has been maintained on a combination of Incruse, Symbicort Daliresp, albuterol and maintenance prednisone at 20 mg daily. Unfortunately she does continue to smoke. She presented here to the emergency room yesterday with complaints of back pain between her shoulder blades. This was last seen 10-15 minutes at a time. No really associated symptoms. No worsening shortness of breath. No diaphoresis. No nausea or vomiting. She denies any muscularskeletal pain secondary to coughing no trauma. Chest x-ray reveals no acute pulmonary process. There is evidence of COPD. CT angiogram revealed no acute pulmonary embolism. There is some chronic bronchitis. There was right apical thickening. CT scan of the abdomen and pelvis revealed some mild ileus present but no obstruction. EKG reveals normal sinus rhythm with no significant ST or T -wave abnormalities. Thoracic spine x-rays are pending. White count 14.7. Hemoglobin 14.7. Creatinine 0.45. Troponin negative. The cultures revealed no growth. She is maintaining good O2 saturations in the 90s on 6 L/m per nasal cannula. She does have her home average volume assured pressure support ( AVAPS) machine which she wears at night and during the day while napping. The patient is seen again today 11/04/2017 in follow-up on the regular medical floor. She is awake and alert in no acute distress. She did utilize her AVAPS machine throughout the night. She is utilizing 6 L/m per nasal cannula and maintaining good O2 saturations in the high 90s. She's been afebrile. Hemodynamically stable. She denies any worsening shortness of breath, cough or congestion. Her pulmonary status is fairly stable for her. Her main complaint is that of continued back pain. Orthopedics have been consulted. The patient is seen again today 11/05/2017 in follow-up on the regular medical floor. She is resting quite comfortably in bed. She denies any worsening shortness of breath, cough or congestion. She is alternating between her a VATS machine in 6 L nasal cannula. No pulmonary complaints. Her back discomfort has subsided somewhat. She was seen and evaluated by orthopedics. They're recommending a SpinoMed TLSO brace that would not constrict her lung function. Planning conservative treatment. Objective - Vital Signs Vital signs: Vital Signs Temp 98.7 F 11/05/17 07:00 Pulse 80 11/05/17 08:30 Resp 16 11/05/17 07:00 BP 114/69 11/05/17 07:00 Pulse Ox 98 11/05/17 07:00 Intake & Output 11/04/17 11/05/17 11/05/17 18:59 06:59 18:59 Intake Total 320 Balance 320 Weight 56.245 kg Intake: Oral 320 Other: Voiding Method Toilet # Voids 2 2 - Exam GENERAL EXAM: Frail, cachectic. Appears older than stated age. Alert, active, comfortable in no apparent distress. HEAD: Normocephalic. EYES: Normal reaction of pupils, equal size. NOSE: Clear with pink turbinates. THROAT: No erythema or exudates. NECK: No masses, no JVD. CHEST: No chest wall deformity. Thoracic pain between the shoulder blades. LUNGS: Equal air entry with no crackles, wheeze, rhonchi or dullness. CVS: S1 and S2 normal with no audible murmur, regular rhythm. ABDOMEN: No hepatosplenomegaly, normal bowel sounds, no guarding or rigidity. SPINE: Kyphoscoliosis SKIN: No rashes CENTRAL NERVOUS SYSTEM: No focal deficits, tone is normal in all 4 extremities. EXTREMITIES: There is no peripheral edema. No clubbing, no cyanosis. Peripheral pulses are intact. - Labs CBC & Chem 7: 11/05/17 07:40 11/05/17 07:40 Labs: Abnormal Lab Results - Last 24 Hours (Table) 11/04/17 11/04/17 11/05/17 Range/Units 17:19 20:48 07:17 WBC (3.8-10.6) k/uL RDW (11.5-15.5) % Plt Count (150-450) k/uL Neutrophils # (1.3-7.7) k/uL Lymphocytes # (1.0-4.8) k/uL BUN (7-17) mg/dL Creatinine (0.52-1.04) mg/dL Glucose (74-99) mg/dL POC Glucose (mg/dL) 156 H 151 H 132 H (75-99) mg/dL 11/05/17 11/05/17 Range/Units 07:40 07:40 WBC 14.5 H (3.8-10.6) k/uL RDW 15.7 H (11.5-15.5) % Plt Count 460 H (150-450) k/uL Neutrophils # 12.9 H (1.3-7.7) k/uL Lymphocytes # 0.7 L (1.0-4.8) k/uL BUN 31 H (7-17) mg/dL Creatinine 0.50 L (0.52-1.04) mg/dL Glucose 117 H (74-99) mg/dL POC Glucose (mg/dL) (75-99) mg/dL Microbiology - Last 24 Hours (Table) 11/02/17 11:57 Blood Culture - Preliminary Blood No Growth after 48 hours Assessment and Plan Assessment: Impression: #1 Thoracic spine pain, appears musculoskeletal in nature. Thoracic spine x-ray revealed chronic moderate anterior compression deformity of T8 and minimal endplate compression fracture of T9. #2 Severe oxygen dependent and steroid dependent end-stage chronic obstructive pulmonary disease with an FEV1 value 27% of predicted. Currently inactive and stable. On home oxygen at 6 L/m. #3 Severe hypercapnic respiratory failure, utilizing an average volume assured pressure support (AVAPS) device in the outpatient setting. #4 Chronic and ongoing tobacco dependence. #5 Anorexia/cachexia syndrome. #6 Chronic pain syndrome. #7 Bipolar disorder. #8 Hyperlipidemia. Plan: The patient was seen and evaluated by Dr. Trujillo. Her COPD is actually controlled at this point. She has no pulmonary complaints. Orthopedics recommending SpinoMed TLSO back brace that would not constrict her lung function. Planning conservative treatment. She is cleared for discharge from the pulmonary standpoint. She'll follow-up with Dr. Molina in our office as scheduled. I, the cosigning physician, performed a history & physical examination of the patient. Lungs sounds are clear, diminished throughout. Maintaining good O2 saturations in the 90s on 6 liters per minute per nasal cannula. I discussed the assessment and plan of care with my nurse practitioner, Michaela Ribera. I attest to the above note as dictated by her.
[2017-11-05 12:16] LABS: Glucose,Whole Blood 142 mg/dL (75-99)
[2017-11-05 15:35] VITALS: BP 127/70; PULSE 85; RESP 20
--- NOTE | 2017-11-05 15:44 | DS ---
DISCHARGE SUMMARY DATE OF SERVICE: 11/05/2017. FINAL DIAGNOSES: 1. Thoracic spine fracture at T9 and T8 with musculoskeletal pain with endplate compression fracture secondary to possibly osteoporosis. 2. Severe oxygen-dependent and steroid-dependent endstage chronic obstructive pulmonary disease. 3. Severe hypercapnic respiratory failure utilizing average volume assured pressure support device in outpatient setting at home, 6 liters. 4. Nicotine dependence. 5. Chronic pain syndrome. 6. Bipolar disorder. DISCHARGE CONDITION: The patient is being discharged in stable condition with guarded prognosis. HISTORY OF PRESENT ILLNESS: This 47-year-old woman with a past history of multiple problems as mentioned, being followed by Dr. Italo John in the outpatient setting, is being admitted with back pain, T8-9 vertebral compression fractures are not detected. Dr. Irving recommend a brace and continue with conservative management. On exam, vitals are stable. Cardiovascular, S1 and S2. Respirations, few rhonchi. Abdomen soft. No mass palpable. DISCHARGE MEDICATIONS: 1. Diet is cardiac. 2. Activity as tolerated. 3. Follow up with Dr. Italo John in 2 to 3 days. 4. Follow up Dr. Molina in 1 week. 5. Follow up with Dr. Irving as recommended. MEDICATIONS: 1. Ventolin 2 puffs p.r.n. 2. Norvasc 5 mg p.o. daily. 3. Ecotrin 325 mg at bedtime. .. 4. Zithromax 500 mg p.o. daily for 5 days. 5. Symbicort 1.5 two puffs b.i.d. 6. 150 mg at bedtime. 7. Calcium with vitamin D 1 p.o. daily. 8. Hydrocodone 1 tablet every 6 hours p.r.n. 9. DuoNeb q.i.d. and p.r.n. 10.Multivitamins 1 p.o. daily. 11.Prilosec 40 mg p.o. b.i.d. 12.Prednisone 40 mg daily for 3 days, 30 for 3 days, 20 for 3 days, 10 for 3 days. 13.Lyrica 100 mg p.o. b.i.d. 14.Risperdal 3 mg at bedtime. 15.Requip 1 mg p.o. at bedtime. 16.Akhil-24, 20 mg p.o. b.i.d. 17.Trazodone 300 mg at bedtime. 18.Incruse Ellipta 1 puff daily. 19.Verapamil 120 mg p.o. daily. Total time taken 35 minutes. MMODL / IJN: [id number] / MTDD
[2017-11-05] MEDS ORDERED: methylPREDNISolone SOD SUCCI 40 MG/ML 1 ML VIAL IV SCH (16:00)
== END 2017-11-05 16:52 | disposition home or self-care (01) ==
LOC: EC 11:18 → 4MS4W 14:35
PROVIDERS: ADMIT Family Medicine; ATTEND Family Medicine
DX: M48.54XA Collapsed vertebra, not elsewhere classified, thoracic region, initial encounter for fracture (principal); J44.1 Chronic obstructive pulmonary disease with (acute) exacerbation; J45.901 Unspecified asthma with (acute) exacerbation; J96.11 Chronic respiratory failure with hypoxia; J96.12 Chronic respiratory failure with hypercapnia; M85.80 Other specified disorders of bone density and structure, unspecified site; Z99.81 Dependence on supplemental oxygen; F17.200 Nicotine dependence, unspecified, uncomplicated; E46 Unspecified protein-calorie malnutrition; R64 Cachexia; G89.4 Chronic pain syndrome; F31.9 Bipolar disorder, unspecified; E78.5 Hyperlipidemia, unspecified; M19.90 Unspecified osteoarthritis, unspecified site; K21.9 Gastro-esophageal reflux disease without esophagitis; M50.222 Other cervical disc displacement at C5-C6 level; M47.816 Spondylosis without myelopathy or radiculopathy, lumbar region; F41.9 Anxiety disorder, unspecified; G43.909 Migraine, unspecified, not intractable, without status migrainosus; Z79.82 Long term (current) use of aspirin; Z79.51 Long term (current) use of inhaled steroids; Z79.899 Other long term (current) drug therapy; Z79.52 Long term (current) use of systemic steroids; Z88.6 Allergy status to analgesic agent; Z88.1 Allergy status to other antibiotic agents; Z88.5 Allergy status to narcotic agent; Z88.2 Allergy status to sulfonamides; Z88.8 Allergy status to other drugs, medicaments and biological substances; Z91.018 Allergy to other foods; Z91.048 Other nonmedicinal substance allergy status; Z86.14 Personal history of Methicillin resistant Staphylococcus aureus infection; Z87.11 Personal history of peptic ulcer disease; Z85.41 Personal history of malignant neoplasm of cervix uteri; Z81.1 Family history of alcohol abuse and dependence; Z80.0 Family history of malignant neoplasm of digestive organs
CPT/HCPCS: 99285 ×2; 96374 ×2; 96375 ×3; 96361 ×4; 96376 ×4; 96372 ×3; 36415; 94640 ×7; 94644; 93005; 80053; 80048; 82550; 82553; 83735; 84484; 85025 ×2; 85610; 85730; 87040; 72070; 71046; 71275; 74177; G0378 ×4; J2060; J2270 ×2; J2930 ×4; Q9967; S0106 ×3; J1650 ×3

== ENCOUNTER 2017-12-21 10:04 | Inpatient (IN) | payer OTHER ==
[2017-12-21] MEDS ORDERED: IPRATROPIUM 0.5 MG/2.5 ML NEBU INHALATION STA (10:39)
[2017-12-21] MEDS ORDERED: ALBUTEROL NEBULIZED 7.5 MG, IPRATROPIUM NEBULIZED 0.5 MG, SODIUM CHLORIDE 0.9% NEBULIZ ... INHALATION ONE ×3 (10:40)
[2017-12-21] MEDS ORDERED: methylPREDNISolone SOD SUCCI 125 MG/2 ML VIAL IV STA (10:41)
[2017-12-21] MEDS ORDERED: ALBUTEROL NEBULIZED 2.5 MG/3 ML INHALATION STA (10:44)
[2017-12-21] MEDS ORDERED: SODIUM CHLORIDE 0.9% 500 ML IV STA (10:44)
[2017-12-21] MEDS ORDERED: ACETAMINOPHEN TAB 500 MG TAB PO STA (10:45)
--- NOTE | 2017-12-21 11:00 | ED ---
General Adult HPI - General Chief complaint: Shortness of Breath Stated complaint: Difficulty Breathing Time Seen by Provider: 12/21/17 10:05 Source: patient, RN notes reviewed Mode of arrival: wheelchair Limitations: no limitations - History of Present Illness Initial comments: This is a 47-year-old female who comes into the emergency department with past medical history significant for COPD. Patient states her difficulty breathing got worse last night about 8:00. Patient states continued to worsen tonight she came into the emergency department today because of it. Patient states she has a cough but no fever. Patient denies any chest pain or palpitations. Patient states she's normally on 5 L of oxygen at home and has BiPAP in the evenings. Patient states she's been giving herself breathing treatments and put herself on BiPAP today but the breathing continued to get worse. Patient denies any abdominal pain patient denies nausea vomiting or diarrhea. Patient denies headache patient denies numbness weakness. Patient denies lightheadedness dizziness or near syncopal episode. - Related Data Home Medications Medication Instructions Recorded Confirmed Albuterol Inhaler [Ventolin Hfa 2 puff INHALATION RT-QID PRN 01/03/14 12/21/17 Inhaler] Omeprazole [PriLOSEC] 40 mg PO BID 01/03/14 12/21/17 Multivitamins, Thera [Multivitamin 1 tab PO DAILY 12/24/14 12/21/17 (formulary)] risperiDONE 3 mg PO HS 12/24/14 12/21/17 traZODone HCL 300 mg PO HS 12/24/14 12/21/17 buPROPion SR [Wellbutrin SR] 150 mg PO HS 04/30/15 12/21/17 Aspirin [Aspirin EC] 325 mg PO HS 03/24/16 12/21/17 Hydrocodone/Acetaminophen [[place] 1 tab PO Q6H PRN 04/26/17 12/21/17 7.5-325] Theophylline 24 Hour [Akhil-24] 200 mg PO BID 07/06/17 12/21/17 Verapamil HCl 120 mg PO DAILY 11/02/17 12/21/17 rOPINIRole HCL [Requip] 1 mg PO HS 11/02/17 12/21/17 Butalb/APAP/Caff 50-325-40Mg 1 tab PO Q8H PRN 12/21/17 12/21/17 [Fioricet 50-325-40] Calcium Carb-Vit D 250Mg-125Un 1 tab PO DAILY 12/21/17 12/21/17 [Oscal 250+D] Fluticasone Nasal [place] [Flonase 2 spray EA NOSTRIL DAILY 12/21/17 12/21/17 Nasal [place]] Pregabalin [Lyrica] 150 mg PO BID 12/21/17 12/21/17 predniSONE 20 mg PO DAILY 12/21/17 12/21/17 Previous Rx's Medication Instructions Recorded Budesonide-Formot 160-4.5 Mcg 2 puff INHALATION RT-BID puff 07/13/16 [Symbicort 160-4.5 Mcg Inhaler] Ipratropium-Albuterol Nebulize 3 ml INHALATION RT-QID neb 01/20/17 [Duoneb 0.5 mg-3 mg/3 ml Soln] amLODIPine [Norvasc] 5 mg PO DAILY #30 tab 07/26/17 Allergies Allergy/AdvReac Type Severity Reaction Status Date / Time aripiprazole [From Abilify] Allergy Rash/Hives Verified 12/21/17 11:02 cephalexin [From Keflex] Allergy Unknown Verified 12/21/17 11:02 honey Allergy Rash/Hives Verified 12/21/17 11:02 methadone [Methadone] Allergy Itching Verified 12/21/17 11:02 naproxen Allergy Rash/Hives Verified 12/21/17 11:02 sulfamethoxazole Allergy Rash/Hives Verified 12/21/17 11:02 [From Bactrim] tetracycline [Tetracycline] Allergy Rash/Hives Verified 12/21/17 11:02 trimethoprim [From Bactrim] Allergy Rash/Hives Verified 12/21/17 11:02 adhesive tape AdvReac Rash/Hives Verified 12/21/17 11:02 tramadol HCl [From Ultram] AdvReac SEIZURES Verified 12/21/17 11:02 tromethamine AdvReac Nausea & Verified 12/21/17 11:02 Vomiting Review of Systems ROS Statement: Those systems with pertinent positive or pertinent negative responses have been documented in the HPI. ROS Other: All systems not noted in ROS Statement are negative. Past Medical History Past Medical History: Asthma, Cancer, Chest Pain / Angina, COPD, GERD/Reflux, Hyperlipidemia, Osteoarthritis (OA) Additional Past Medical History / Comment(s): COPD which is been end-stage with frequent hospitalization for acute COPD exacerbation. The patient has chronic hypoxic and hypercapnic respiratory failure. The patient is 02 dependent at 6L /m nasal cannula, AVAPS at night, advanced COPD , cervical and lumbar spine spondylosis, chronic migraines, peptic ulcer disease/gastric ulcers, carpal tunnel disease bilaterally, herniated disc at level of C5-C6 and C7, cervical cancer, depression. Last Myocardial Infarction Date:: UNK History of Any Multi-Drug Resistant Organisms: MRSA Date of last positivie culture/infection: 06/18/2015 MDRO Source:: SPUTUM Past Surgical History: Section, Cholecystectomy, Hysterectomy, Tubal Ligation Additional Past Surgical History / Comment(s): x 2, colonoscopy with benign polypectomy. Past Anesthesia/Blood Transfusion Reactions: No Reported Reaction Additional Past Anesthesia/Blood Transfusion Reaction / Comment(s): Pt has never recieved blood. Past Psychological History: Anxiety, Bipolar, Depression Smoking Status: Former smoker Past Alcohol Use History: None Reported Past Drug Use History: None Reported - Past Family History Father Family Medical History: No Reported History Additional Family Medical History / Comment(s): WAS AN ALCOHOLIC Mother Family Medical History: Cancer Additional Family Medical History / Comment(s): AT AGE 54-BOWEL CANCER General Exam - General Exam Comments Initial Comments: GENERAL: Patient is well-developed and well-nourished. Patient is nontoxic and well- hydrated and is in mild distress. ENT: Neck is soft and supple. No significant lymphadenopathy is noted. Oropharynx is clear. Moist mucous membranes. Neck has full range of motion without eliciting any pain. EYES: The sclera were anicteric and conjunctiva were pink and moist. Extraocular movements were intact and pupils were equal round and reactive to light. Eyelids were unremarkable. PULMONARY: Diffusely diminished breath sounds. CARDIOVASCULAR: There is a regular rate and rhythm without any murmurs gallops or rubs. ABDOMEN: Soft and nontender with normal bowel sounds. No palpable organomegaly was noted. There is no palpable pulsatile mass. SKIN: Skin is clear with no lesions or rashes and otherwise unremarkable. NEUROLOGIC: Patient is alert and oriented x3. Cranial nerves II through XII are grossly intact. Motor and sensory are also intact. Normal speech, volume and content. Symmetrical smile. MUSCULOSKELETAL: Normal extremities with adequate strength and full range of motion. No lower extremity swelling or edema. No calf tenderness. LYMPHATICS: No significant lymphadenopathy is noted PSYCHIATRIC: Normal psychiatric evaluation. Limitations: no limitations Course Vital Signs 12/21/17 12/21/17 12/21/17 10:08 10:30 10:45 Temperature 98.9 F Pulse Rate 110 H 91 Respiratory 38 H 30 H 25 H Rate Blood Pressure 119/69 O2 Sat by Pulse 76 L 95 Oximetry 12/21/17 12/21/17 10:48 11:20 Temperature Pulse Rate 100 58 L Respiratory Rate Blood Pressure O2 Sat by Pulse Oximetry Medical Decision Making - Medical Decision Making EKG shows sinus tachycardia at 105 bpm SC interval 228 QRS is 70 QT interval 338 QTC is 446. Patient's EKG shows no ST segment elevation or depression or T wave abnormalities are noted. Chest x-ray showed no acute normalities. Patient received 3 consecutive albuterol treatments with Atrovent and though she felt a little better she still was diminished diffusely. Patient remained on her own BiPAP. Patient also received steroids in the emergency department. I spoke with because of that because he agreed to admit the patient admitted the patient I continue the albuterol treatments as well as steroids. If the patient was off the BiPAP she would drop into the low 80s on the pulse ox. - Lab Data Result diagrams: 12/21/17 10:34 12/21/17 10:34 Lab Results 12/21/17 12/21/17 12/21/17 Range/Units 10:34 10:34 10:34 WBC 12.0 H (3.8-10.6) k/uL RBC 4.44 (3.80-5.40) m/uL Hgb 12.3 (11.4-16.0) gm/dL Hct 37.7 (34.0-46.0) % MCV 85.0 (80.0-100.0) fL MCH 27.8 (25.0-35.0) pg MCHC 32.7 (31.0-37.0) g/dL RDW 15.8 H (11.5-15.5) % Plt Count 426 (150-450) k/uL Neutrophils % 89 % Lymphocytes % 4 % Monocytes % 5 % Eosinophils % 1 % Basophils % 0 % Neutrophils # 10.6 H (1.3-7.7) k/uL Lymphocytes # 0.5 L (1.0-4.8) k/uL Monocytes # 0.6 (0-1.0) k/uL Eosinophils # 0.1 (0-0.7) k/uL Basophils # 0.0 (0-0.2) k/uL PT (9.0-12.0) sec INR (<1.2) APTT (22.0-30.0) sec Sodium 141 (137-145) mmol/L Potassium 4.0 (3.5-5.1) mmol/L Chloride 99 (98-107) mmol/L Carbon Dioxide 28 (22-30) mmol/L Anion Gap 14 mmol/L BUN 13 (7-17) mg/dL Creatinine 0.40 L (0.52-1.04) mg/dL Est GFR (CKD-EPI)AfAm >90 (>60 ml/min/1.73 sqM) Est GFR (CKD-EPI)NonAf >90 (>60 ml/min/1.73 sqM) Glucose 217 H (74-99) mg/dL Calcium 9.4 (8.4-10.2) mg/dL Magnesium 1.6 (1.6-2.3) mg/dL Total Bilirubin 0.3 (0.2-1.3) mg/dL AST 17 (14-36) U/L ALT 20 (9-52) U/L Alkaline Phosphatase 94 (38-126) U/L Total Creatine Kinase 92 (30-135) U/L CK-MB (CK-2) 3.3 H* (0.0-2.4) ng/mL CK-MB (CK-2) Rel Index 3.6 Troponin I <0.012 (0.000-0.034) ng/mL NT-Pro-B Natriuret Pep pg/mL Total Protein 6.4 (6.3-8.2) g/dL Albumin 3.9 (3.5-5.0) g/dL 12/21/17 12/21/17 Range/Units 10:34 10:34 WBC (3.8-10.6) k/uL RBC (3.80-5.40) m/uL Hgb (11.4-16.0) gm/dL Hct (34.0-46.0) % MCV (80.0-100.0) fL MCH (25.0-35.0) pg MCHC (31.0-37.0) g/dL RDW (11.5-15.5) % Plt Count (150-450) k/uL Neutrophils % % Lymphocytes % % Monocytes % % Eosinophils % % Basophils % % Neutrophils # (1.3-7.7) k/uL Lymphocytes # (1.0-4.8) k/uL Monocytes # (0-1.0) k/uL Eosinophils # (0-0.7) k/uL Basophils # (0-0.2) k/uL PT 9.3 (9.0-12.0) sec INR 0.9 (<1.2) APTT 22.0 (22.0-30.0) sec Sodium (137-145) mmol/L Potassium (3.5-5.1) mmol/L Chloride (98-107) mmol/L Carbon Dioxide (22-30) mmol/L Anion Gap mmol/L BUN (7-17) mg/dL Creatinine (0.52-1.04) mg/dL Est GFR (CKD-EPI)AfAm (>60 ml/min/1.73 sqM) Est GFR (CKD-EPI)NonAf (>60 ml/min/1.73 sqM) Glucose (74-99) mg/dL Calcium (8.4-10.2) mg/dL Magnesium (1.6-2.3) mg/dL Total Bilirubin (0.2-1.3) mg/dL AST (14-36) U/L ALT (9-52) U/L Alkaline Phosphatase (38-126) U/L Total Creatine Kinase (30-135) U/L CK-MB (CK-2) (0.0-2.4) ng/mL CK-MB (CK-2) Rel Index Troponin I (0.000-0.034) ng/mL NT-Pro-B Natriuret Pep 178 pg/mL Total Protein (6.3-8.2) g/dL Albumin (3.5-5.0) g/dL Disposition Clinical Impression: COPD with acute exacerbation Disposition: ADMITTED IP TO THIS HOSP Referrals: Italo John MD [Primary Care Provider] - 1-2 days Time of Disposition: 11:54
[2017-12-21 11:08] LABS: Basophils % (A) 0 %; Eosinophils # (A) 0.1 k/uL (0-0.7); Eosinophils % (A) 1 %; HCT 37.7 % (34.0-46.0); HGB 12.3 gm/dL (11.4-16.0); Lymphocytes # (A) 0.5 k/uL (1.0-4.8); Lymphocytes % (A) 4 %; MCH 27.8 pg (25.0-35.0); MCHC 32.7 g/dL (31.0-37.0); Monocytes # (A) 0.6 k/uL (0-1.0); Monocytes % (A) 5 %; Neutrophils # (A) 10.6 k/uL (1.3-7.7); Neutrophils % (A) 89 %; Platelet Count 426 k/uL (150-450); RBC 4.44 m/uL (3.80-5.40); RDW 15.8 % (11.5-15.5)
[2017-12-21 11:20] LABS: ALT 20 U/L (9-52); AST 17 U/L (14-36); Albumin 3.9 g/dL (3.5-5.0); Alkaline Phosphatase 94 U/L (38-126); Anion Gap 14 mmol/L; Blood Urea Nitrogen 13 mg/dL (7-17); Calcium 9.4 mg/dL (8.4-10.2); Carbon Dioxide 28 mmol/L (22-30); Chloride 99 mmol/L (98-107); Glucose 217 mg/dL (74-99); Magnesium 1.6 mg/dL (1.6-2.3); Sodium 141 mmol/L (137-145); Total Bilirubin 0.3 mg/dL (0.2-1.3); Total Protein 6.4 g/dL (6.3-8.2)
[2017-12-21 11:29] LABS: Creatine Kinase 92 U/L (30-135)
--- NOTE | 2017-12-21 11:30 | XR ---
EXAMINATION TYPE: XR chest 1V portable DATE OF EXAM: 12/21/2017 COMPARISON: 11/02/2017 HISTORY: Shortness of breath TECHNIQUE: Single frontal view of the chest is obtained. FINDINGS: There is no focal air space opacity, pleural effusion, or pneumothorax seen. The cardiac silhouette size is within normal limits. The osseous structures are intact. Interstitium is slightl y coarsened. Hyperinflation noted. Correlate for COPD. There is a extension of the medial diaphysis o f the humerus IMPRESSION: 1. Coarsened interstitium can be seen with bronchitis or interstitial pneumonitis. Correlate clinical ly. 2. Correlate for right humeral osteochondroma.
[2017-12-21 11:42] LABS: Troponin I <0.012 ng/mL (0.000-0.034)
[2017-12-21 11:43] LABS: Creatine Kinase MB 3.3 ng/mL (0.0-2.4)
[2017-12-21 11:46] LABS: INR 0.9 (<1.2); Prothrombin Time 9.3 sec (9.0-12.0)
[2017-12-21] MEDS ORDERED: ALBUTEROL NEBULIZED (CONC) 5 MG, SODIUM CHLORIDE 0.9% NEBULIZ 3 ML INHALATION STA ×2 (12:20)
[2017-12-21] MEDS ORDERED: KETOROLAC 30 MG/ML 1 ML VIAL IVP STA (15:20)
[2017-12-21] MEDS: IPRATROPIUM-ALBUTEROL 3 ML NEB INHALATION PRN ×3 (15:43→23:38)
--- NOTE | 2017-12-21 17:31 | P.HPIM ---
History of Present Illness This is a pleasant 47 years old lady with past medical history of COPD, asthma, GERD, hyperlipidemia, CAD, OA, history of thoracic spine fracture at T8 and T9, possible osteoporosis, hysterectomy who presents because of dyspnea of 3 days duration associated with cough and yellow phlegm and chest tightness, patient denies chest pain, denies dysuria, denies abdominal pain or change in her bowel urine, patient complains from chronic back pain Review of Systems 14 point system review were negative excess was mentioned in HPI Past Medical History Past Medical History: Asthma, Cancer, Chest Pain / Angina, COPD, Eye Disorder, GERD/Reflux, Hyperlipidemia, Myocardial Infarction (MA), Osteoarthritis (OA), Pneumonia, Respiratory Disorder Additional Past Medical History / Comment(s): Pt recently admitted to [facility] on with thoracic spine fractures T8-T9, possible oseoporosis. Other HX: End stage COPD, chronic hypoxic and hypercapnic respiratory failure, home O2 at 5L/NC and bipap at HS, steroid dependent, bronchitis, 1997 pt states she was told her EKG showed a past MA, cervical cancer with hysterectomy, PUD, carpal tunnel bilaterally, herniated discs C5-C6 and L5-L6, cervical/lumbar spondylosis, RLS, eczema, cataract L eye, tinnitis bilaterally, sinus problems. Last Myocardial Infarction Date:: UNK History of Any Multi-Drug Resistant Organisms: MRSA Date of last positivie culture/infection: 06/18/2015 MDRO Source:: SPUTUM Past Surgical History: Section, Cholecystectomy, Ear Surgery, Hysterectomy, Tubal Ligation Additional Past Surgical History / Comment(s): x 2, EGD, colonoscopy with benign polypectomy, R ear cyst with surgery.. Past Anesthesia/Blood Transfusion Reactions: No Reported Reaction Additional Past Anesthesia/Blood Transfusion Reaction / Comment(s): Pt has never recieved blood. Smoking Status: Former smoker - Past Family History Father Family Medical History: No Reported History Additional Family Medical History / Comment(s): WAS AN ALCOHOLIC Mother Family Medical History: Cancer Additional Family Medical History / Comment(s): AT AGE 54-BOWEL CANCER Medications and Allergies Home Medications Medication Instructions Recorded Confirmed Type Albuterol Inhaler [Ventolin Hfa 2 puff INHALATION RT-QID PRN 01/03/14 12/21/17 History Inhaler] Omeprazole [PriLOSEC] 40 mg PO BID 01/03/14 12/21/17 History Multivitamins, Thera [Multivitamin 1 tab PO DAILY 12/24/14 12/21/17 History (formulary)] risperiDONE 3 mg PO HS 12/24/14 12/21/17 History traZODone HCL 300 mg PO HS 12/24/14 12/21/17 History buPROPion SR [Wellbutrin SR] 150 mg PO HS 04/30/15 12/21/17 History Aspirin [Aspirin EC] 325 mg PO HS 03/24/16 12/21/17 History Budesonide-Formot 160-4.5 Mcg 2 puff INHALATION RT-BID puff 07/13/16 12/21/17 Rx [Symbicort 160-4.5 Mcg Inhaler] Ipratropium-Albuterol Nebulize 3 ml INHALATION RT-QID neb 01/20/17 12/21/17 Rx [Duoneb 0.5 mg-3 mg/3 ml Soln] Hydrocodone/Acetaminophen [[place] 1 tab PO Q6H PRN 04/26/17 12/21/17 History 7.5-325] Theophylline 24 Hour [Akhil-24] 200 mg PO BID 07/06/17 12/21/17 History amLODIPine [Norvasc] 5 mg PO DAILY #30 tab 07/26/17 12/21/17 Rx Verapamil HCl 120 mg PO DAILY 11/02/17 12/21/17 History rOPINIRole HCL [Requip] 1 mg PO HS 11/02/17 12/21/17 History Butalb/APAP/Caff 50-325-40Mg 1 tab PO Q8H PRN 12/21/17 12/21/17 History [Fioricet 50-325-40] Calcium Carb-Vit D 250Mg-125Un 1 tab PO DAILY 12/21/17 12/21/17 History [Oscal 250+D] Fluticasone Nasal [place] [Flonase 2 spray EA NOSTRIL DAILY 12/21/17 12/21/17 History Nasal [place]] Pregabalin [Lyrica] 150 mg PO BID 12/21/17 12/21/17 History predniSONE 20 mg PO DAILY 12/21/17 12/21/17 History Allergies Allergy/AdvReac Type Severity Reaction Status Date / Time aripiprazole [From Abilify] Allergy Rash/Hives Verified 12/21/17 11:02 cephalexin [From Keflex] Allergy Unknown Verified 12/21/17 11:02 honey Allergy Rash/Hives Verified 12/21/17 11:02 methadone [Methadone] Allergy Itching Verified 12/21/17 11:02 naproxen Allergy Rash/Hives Verified 12/21/17 11:02 sulfamethoxazole Allergy Rash/Hives Verified 12/21/17 11:02 [From Bactrim] tetracycline [Tetracycline] Allergy Rash/Hives Verified 12/21/17 11:02 trimethoprim [From Bactrim] Allergy Rash/Hives Verified 12/21/17 11:02 adhesive tape AdvReac Rash/Hives Verified 12/21/17 11:02 tramadol HCl [From Ultram] AdvReac SEIZURES Verified 12/21/17 11:02 tromethamine AdvReac Nausea & Verified 12/21/17 11:02 Vomiting Physical Exam Vitals: Vital Signs Temp Pulse Resp BP Pulse Ox 12/21/17 15:56 108 H 12/21/17 15:44 100 12/21/17 14:00 87 24 164/76 92 L 12/21/17 12:20 90 25 H 128/71 90 L 12/21/17 12:00 101 H 25 H 135/77 80 L 12/21/17 11:30 100 25 H 92 L 12/21/17 11:20 58 L 12/21/17 11:11 98 25 H 132/66 95 12/21/17 10:48 100 12/21/17 10:45 91 25 H 95 12/21/17 10:30 30 H 12/21/17 10:08 98.9 F 110 H 38 H 119/69 76 L Intake and Output 12/21/17 12/21/17 12/21/17 06:59 14:59 22:59 Other: Weight 56.699 kg Constitutional: No acute distress, conversant, pleasant Eyes: Anicteric sclerae, moist conjunctiva, no lid-lag PERRLA ENMT: NC/AT Oropharynx clear, no erythema, exudates Neck: Supple, FROM, no masses, or JVD No carotid bruits No thyromegaly -Lungs: Clear to auscultation, expiratory wheezes on both sides Clear to percussion Normal respiratory effort, no accessory muscle use Cardiovascular: Heart regular in rate and rhythm, No murmurs, gallops, or rubs No peripheral edema Abdominal: Soft Nontender, no guarding, rebound or rigidity Abdomen moving with respiration Normoactive bowel sounds No hepatomegaly, No splenomegaly No palpable mass No abdominal wall hernia noted Skin: Normal temperature, tone, texture, turgor No induration No subcutaneous nodules No rash, lesions No ulcers Extremities: No digital cyanosis No clubbing Pedal pulses intact and symmetrical Radial pulses intact and symmetrical Normal gait and station No calf tenderness Psychiatric: Alert and oriented to person, place and time Appropriate affect Intact judgement Neuro: Muscles Strength 5/5 in all 4 extremities Sensation to light touch grossly present throughout Cranial nerves II-XII grossly intact No focal sensory deficits Results CBC & Chem 7: 12/21/17 10:34 12/21/17 10:34 Labs: Abnormal Lab Results - Last 24 Hours (Table) 12/21/17 12/21/17 12/21/17 Range/Units 10:34 10:34 10:34 WBC 12.0 H (3.8-10.6) k/uL RDW 15.8 H (11.5-15.5) % Neutrophils # 10.6 H (1.3-7.7) k/uL Lymphocytes # 0.5 L (1.0-4.8) k/uL Creatinine 0.40 L (0.52-1.04) mg/dL Glucose 217 H (74-99) mg/dL CK-MB (CK-2) 3.3 H* (0.0-2.4) ng/mL Thrombosis Risk Factor Assmnt - Choose All That Apply Any of the Below Risk Factors Present?: Yes Each Factor Represents 1 point: Abnormal pulmonary function (COPD), Age 41-60 years, Serious lung disease incl. pneumonia (< 1month) Other Risk Factors: Yes Each Risk Factor Represents 2 Points: Malignancy Other congenital or acquired thrombophilia - If yes, enter type in comment: No Thrombosis Risk Factor Assessment Total Risk Factor Score: 5 Thrombosis Risk Factor Assessment Level: High Risk Assessment and Plan Assessment: COPD Right humerus bone extension Dehydration Plan: There was admitted the patient for inpatient, continue with IV hydration, antibiotics, breathing treatments, steroids Follow-up her vitals and labs Also call orthopedic floor her right humeral lesion Patient was informed about her bone lesions, risk of cancer explained for the patient
[2017-12-21] MEDS: HYDROcodone/APAP 7.5-325MG 1 EACH TAB PO PRN ×2 (17:43→23:31)
[2017-12-21] MEDS: SODIUM CHLORIDE 0.9% 1,000 ML IV SCH (17:54)
[2017-12-21] MEDS: methylPREDNISolone SOD SUCCI 125 MG/2 ML VIAL IV SCH ×2 (17:58→23:31)
[2017-12-21] MEDS ORDERED: ALBUTEROL NEBULIZED 2.5 MG/3 ML INHALATION PRN (21:36)
[2017-12-21] MEDS: risperiDONE 1 MG TAB PO SCH (23:29)
[2017-12-21] MEDS: ASPIRIN 325 MG TAB PO SCH (23:30)
[2017-12-21] MEDS: traZODone HCL 100 MG TAB PO SCH (23:30)
[2017-12-21] MEDS: THEOPHYLLINE 24 HOUR 200 MG CAP.ER.24H PO SCH (23:30)
[2017-12-21] MEDS: buPROPion XL 150 MG TAB.ER.24H PO SCH (23:30)
[2017-12-21] MEDS: PREGABALIN 75 MG CAP PO SCH (23:30)
[2017-12-22] MEDS: IPRATROPIUM-ALBUTEROL 3 ML NEB INHALATION PRN ×3 (03:31→23:29)
[2017-12-22] MEDS: HYDROcodone/APAP 7.5-325MG 1 EACH TAB PO PRN ×4 (06:19→23:14)
[2017-12-22] MEDS: methylPREDNISolone SOD SUCCI 125 MG/2 ML VIAL IV SCH ×4 (06:20→23:15)
[2017-12-22] MEDS: VERAPAMIL SR 120 MG TABLET.ER PO SCH (06:39)
[2017-12-22] MEDS: SYMBICORT 160-4.5 MCG INHALER INHALATION SCH ×2 (07:31→19:14)
[2017-12-22] MEDS: IPRATROPIUM-ALBUTEROL 3 ML NEB INHALATION SCH ×4 (07:31→19:13)
[2017-12-22] MEDS: SODIUM CHLORIDE 0.9% 1,000 ML IV SCH ×3 (08:33→21:48)
[2017-12-22] MEDS ORDERED: amLODIPine 5 MG TAB PO SCH (09:00)
[2017-12-22] MEDS ORDERED: CALCIUM CARB-VIT D 250MG-125UN 1 EACH TAB PO SCH (09:00)
[2017-12-22] MEDS: THEOPHYLLINE 24 HOUR 200 MG CAP.ER.24H PO SCH ×2 (09:34→19:53)
[2017-12-22] MEDS: PANTOPRAZOLE 40 MG TABLET PO SCH (09:35)
[2017-12-22] MEDS: FLUTICASONE 50MCG/SPRAY NASAL 16GM EA NOSTRIL SCH (09:41)
[2017-12-22] MEDS: PREGABALIN 75 MG CAP PO SCH ×2 (10:43→19:52)
[2017-12-22] MEDS: MULTIVITAMINS, THERA 1 EACH TAB PO SCH (12:40)
--- NOTE | 2017-12-22 13:15 | P.PN ---
Subjective Patient is seen and examined by me at bedside Known new complaints No CP/SOB, no change in urine or bowel habits, no fever Objective - Vital Signs Vital signs: Vital Signs Temp 96.7 F L 12/22/17 12:52 Pulse 116 H 12/22/17 12:55 Resp 26 H 12/22/17 12:55 BP 159/86 12/22/17 12:52 Pulse Ox 93 L 12/22/17 12:52 Intake & Output 12/21/17 12/22/17 12/22/17 18:59 06:59 18:59 Intake Total 600 450 Output Total 1200 Balance 600 -750 Weight 56.699 kg Intake: IV 600 Sodium Chloride 0.9% 1, 600 000 ml @ 75 mls/hr IV . [id number] [place] Rx#:[id number] Intake, IV Titration 450 Amount Sodium Chloride 0.9% 1, 450 000 ml @ 75 mls/hr IV . [id number] [place] Rx#:[id number] Output: Urine 1200 Other: Voiding Method Bedside Commode Toilet Bedside Commode # Voids 1 1 # Bowel Movements 1 - Exam Constitutional: No acute distress, conversant, pleasant Eyes: Anicteric sclerae, moist conjunctiva, no lid-lag PERRLA ENMT: NC/AT Oropharynx clear, no erythema, exudates Neck: Supple, FROM, no masses, or JVD No carotid bruits No thyromegaly Lungs: Clear to auscultation, scattered wheezing Clear to percussion Normal respiratory effort, no accessory muscle use Cardiovascular: Heart regular in rate and rhythm, No murmurs, gallops, or rubs No peripheral edema Abdominal: Soft Nontender, no guarding, rebound or rigidity Abdomen moving with respiration Normoactive bowel sounds No hepatomegaly, No splenomegaly No palpable mass No abdominal wall hernia noted Skin: Normal temperature, tone, texture, turgor No induration No subcutaneous nodules No rash, lesions No ulcers Extremities: No digital cyanosis No clubbing Pedal pulses intact and symmetrical Radial pulses intact and symmetrical Normal gait and station No calf tenderness Psychiatric: Alert and oriented to person, place and time Appropriate affect Intact judgement Neuro: Muscles Strength 5/5 in all 4 extremities Sensation to light touch grossly present throughout Cranial nerves II-XII grossly intact No focal sensory deficits - Labs CBC & Chem 7: 12/21/17 10:34 12/21/17 10:34 Labs: Microbiology - Last 24 Hours (Table) 12/21/17 10:34 Blood Culture - Preliminary Blood No Growth after 24 hours Assessment and Plan Assessment: COPD Right humerus bone extension Dehydration Plan: There was admitted the patient for inpatient, continue with IV hydration, antibiotics, breathing treatments, steroids Patient breathing is more tired today, called study abroad coordinator Dr. Molina which she's the patient Follow-up her vitals and labs Continue with BiPAP Also call orthopedic floor her right humeral lesion Patient was informed about her bone lesions, risk of cancer explained for the patient D/W staff
[2017-12-22 13:56] LABS: Basophils % (A) 0 %; Eosinophils % (A) 0 %; HCT 38.3 % (34.0-46.0); HGB 12.4 gm/dL (11.4-16.0); Lymphocytes # (A) 0.9 k/uL (1.0-4.8); Lymphocytes % (A) 6 %; MCH 27.5 pg (25.0-35.0); MCHC 32.3 g/dL (31.0-37.0); MCV 84.9 fL (80.0-100.0); Monocytes # (A) 0.8 k/uL (0-1.0); Monocytes % (A) 6 %; Neutrophils # (A) 12.4 k/uL (1.3-7.7); Neutrophils % (A) 87 %; Platelet Count 413 k/uL (150-450); RBC 4.51 m/uL (3.80-5.40); RDW 15.8 % (11.5-15.5); WBC 14.3 k/uL (3.8-10.6)
[2017-12-22 14:10] LABS: Anion Gap 11 mmol/L; Blood Urea Nitrogen 19 mg/dL (7-17); Calcium 9.5 mg/dL (8.4-10.2); Carbon Dioxide 32 mmol/L (22-30); Chloride 102 mmol/L (98-107); Glucose 139 mg/dL (74-99); Potassium 3.9 mmol/L (3.5-5.1); Sodium 145 mmol/L (137-145)
--- NOTE | 2017-12-22 14:53 | P.CNPUL ---
History of Present Illness Consult date: 12/22/17 Requesting physician: Aung E Sheet Reason for consult: dyspnea, COPD Chief complaint: Shortness of breath History of present illness: This is a very pleasant 47-year-old female patient who follows with Dr. John as her primary care physician. She has a history of gastroesophageal reflux disease, a arthritis, hyperlipidemia, chronic pain syndrome, cervical and lumbar spine spondylosis cysts, chronic migraines, peptic ulcer disease, depression, cervical cancer, anorexia/cachexia malnourishment a significant total body protein mass loss. She has has a history of severe oxygen dependent end-stage chronic obstructive pulmonary disease. She utilizes oxygen at 5 L/m per nasal cannula at home. She also utilizes an average volume assured pressure support (AVAPS) device. She has chronic and ongoing tobacco dependence. She follows with Dr. Molina in our office. She her last FEV1 value is 27% of predicted. The patient also has history of MRSA pneumonia and strep pneumonias. She has had multiple admissions for COPD exacerbations most recently 11/02/2017. He is admitted here yesterday morning after having worsening shortness of breath, dry nonproductive cough. She states she did have a fever at home. She's had significant chest tightness and wheezing. Despite increased use of her nebulized treatments without much improvement. Her chest x-ray reveals coarsened interstitium consistent with bronchitis or interstitial pneumonitis. She has her home a VATS device in place. Otherwise she requires 10 L high flow nasal cannula to maintain O2 saturations in the 90s. She's been tachycardic. Tachypneic. Currently afebrile. The culture reveals no growth to date. White count 14.3. Hemoglobin 12.4. Creatinine 0.36. Review of Systems 14 point review of system was conducted. All negative other than as mentioned in the HPI. Past Medical History Past Medical History: Asthma, Cancer, Chest Pain / Angina, COPD, Eye Disorder, GERD/Reflux, Hyperlipidemia, Myocardial Infarction ([place]), Osteoarthritis (OA), Pneumonia, Respiratory Disorder Additional Past Medical History / Comment(s): Pt recently admitted to [facility] on with thoracic spine fractures T8-T9, possible oseoporosis. Other HX: End stage COPD, chronic hypoxic and hypercapnic respiratory failure, home O2 at 5L/[place] and bipap at HS, steroid dependent, bronchitis, 1997 pt states she was told her EKG showed a past [place], cervical cancer with hysterectomy, PUD, carpal tunnel bilaterally, herniated discs C5-C6 and L5-L6, cervical/lumbar spondylosis, RLS, eczema, cataract L eye, tinnitis bilaterally, sinus problems. Last Myocardial Infarction Date:: UNK History of Any Multi-Drug Resistant Organisms: MRSA Date of last positivie culture/infection: 06/18/2015 MDRO Source:: SPUTUM Past Surgical History: Section, Cholecystectomy, Ear Surgery, Hysterectomy, Tubal Ligation Additional Past Surgical History / Comment(s): x 2, EGD, colonoscopy with benign polypectomy, R ear cyst with surgery.. Past Anesthesia/Blood Transfusion Reactions: No Reported Reaction Additional Past Anesthesia/Blood Transfusion Reaction / Comment(s): Pt has never recieved blood. Smoking Status: Former smoker - Past Family History Father Family Medical History: No Reported History Additional Family Medical History / Comment(s): WAS AN ALCOHOLIC Mother Family Medical History: Cancer Additional Family Medical History / Comment(s): AT AGE 54-BOWEL CANCER Medications and Allergies Home Medications Medication Instructions Recorded Confirmed Type Albuterol Inhaler [Ventolin Hfa 2 puff INHALATION RT-QID PRN 01/03/14 12/21/17 History Inhaler] Omeprazole [PriLOSEC] 40 mg PO BID 01/03/14 12/21/17 History Multivitamins, Thera [Multivitamin 1 tab PO DAILY 12/24/14 12/21/17 History (formulary)] risperiDONE 3 mg PO HS 12/24/14 12/21/17 History traZODone HCL 300 mg PO HS 12/24/14 12/21/17 History buPROPion SR [Wellbutrin SR] 150 mg PO HS 04/30/15 12/21/17 History Aspirin [Aspirin EC] 325 mg PO HS 03/24/16 12/21/17 History Budesonide-Formot 160-4.5 Mcg 2 puff INHALATION RT-BID puff 07/13/16 12/21/17 Rx [Symbicort 160-4.5 Mcg Inhaler] Ipratropium-Albuterol Nebulize 3 ml INHALATION RT-QID neb 01/20/17 12/21/17 Rx [Duoneb 0.5 mg-3 mg/3 ml Soln] Hydrocodone/Acetaminophen [[place] 1 tab PO Q6H PRN 04/26/17 12/21/17 History 7.5-325] Theophylline 24 Hour [Akhil-24] 200 mg PO BID 07/06/17 12/21/17 History amLODIPine [Norvasc] 5 mg PO DAILY #30 tab 07/26/17 12/21/17 Rx Verapamil HCl 120 mg PO DAILY 11/02/17 12/21/17 History rOPINIRole HCL [Requip] 1 mg PO HS 11/02/17 12/21/17 History Butalb/APAP/Caff 50-325-40Mg 1 tab PO Q8H PRN 12/21/17 12/21/17 History [Fioricet 50-325-40] Calcium Carb-Vit D 250Mg-125Un 1 tab PO DAILY 12/21/17 12/21/17 History [Oscal 250+D] Fluticasone Nasal [place] [Flonase 2 spray EA NOSTRIL DAILY 12/21/17 12/21/17 History Nasal [place]] Pregabalin [Lyrica] 150 mg PO BID 12/21/17 12/21/17 History predniSONE 20 mg PO DAILY 12/21/17 12/21/17 History Allergies Allergy/AdvReac Type Severity Reaction Status Date / Time aripiprazole [From Abilify] Allergy Rash/Hives Verified 12/21/17 11:02 cephalexin [From Keflex] Allergy Unknown Verified 12/21/17 11:02 honey Allergy Rash/Hives Verified 12/21/17 11:02 methadone [Methadone] Allergy Itching Verified 12/21/17 11:02 naproxen Allergy Rash/Hives Verified 12/21/17 11:02 sulfamethoxazole Allergy Rash/Hives Verified 12/21/17 11:02 [From Bactrim] tetracycline [Tetracycline] Allergy Rash/Hives Verified 12/21/17 11:02 trimethoprim [From Bactrim] Allergy Rash/Hives Verified 12/21/17 11:02 adhesive tape AdvReac Rash/Hives Verified 12/21/17 11:02 tramadol HCl [From Ultram] AdvReac SEIZURES Verified 12/21/17 11:02 tromethamine AdvReac Nausea & Verified 12/21/17 11:02 Vomiting Physical Exam Vitals: Vital Signs Temp Pulse Pulse Pulse Resp BP BP 12/22/17 13:46 107 H 12/22/17 13:35 105 H 22 12/22/17 12:55 116 H 26 H 12/22/17 12:52 96.7 F L 116 H 26 H 159/86 12/22/17 12:00 97.6 F 106 H 24 148/92 12/22/17 11:05 110 H 12/22/17 10:49 119 H 12/22/17 08:30 98 F 106 H 24 159/91 12/22/17 07:51 105 H 12/22/17 07:32 112 H 12/22/17 04:00 105 H 22 160/102 12/22/17 03:44 114 H 12/22/17 03:32 111 H 12/22/17 00:00 102 H 24 178/97 12/21/17 23:54 102 H 12/21/17 23:40 101 H 12/21/17 20:00 93 21 139/61 12/21/17 19:49 104 H 12/21/17 19:31 99 12/21/17 19:19 104 H 18 166/97 12/21/17 16:00 97.7 F 105 H 24 164/85 12/21/17 15:56 108 H 12/21/17 15:44 100 Pulse Ox 12/22/17 13:46 12/22/17 13:35 12/22/17 12:55 12/22/17 12:52 93 L 12/22/17 12:00 93 L 12/22/17 11:05 12/22/17 10:49 12/22/17 08:30 96 12/22/17 07:51 12/22/17 07:32 12/22/17 04:00 96 12/22/17 03:44 12/22/17 03:32 12/22/17 00:00 94 L 12/21/17 23:54 12/21/17 23:40 12/21/17 20:00 92 L 12/21/17 19:49 12/21/17 19:31 12/21/17 19:19 94 L 12/21/17 16:00 91 L 12/21/17 15:56 12/21/17 15:44 Intake and Output 12/21/17 12/22/17 12/22/17 22:59 06:59 14:59 Intake Total 600 550 Output Total 1200 Balance 600 -650 Intake: IV 600 Sodium Chloride 0.9% 1, 600 000 ml @ 75 mls/hr IV . [id number] [place] Rx#:[id number] Intake, IV Titration 450 Amount Sodium Chloride 0.9% 1, 450 000 ml @ 75 mls/hr IV . [id number] [place] Rx#:[id number] Oral 100 Output: Urine 1200 Other: Voiding Method Toilet Toilet Bedside Commode # Voids 1 1 # Bowel Movements 1 GENERAL EXAM: Frail, cachectic, mild respiratory distress. Alert and oriented 3. EYES: Normal reaction of pupils, equal size. NOSE: Clear with pink turbinates. THROAT: No erythema or exudates. NECK: No masses, no JVD. CHEST: No abnormalities LUNGS: Equal air entry with bilateral end expiratory wheeze. Diminished throughout.. CVS: S1 and S2 normal with no audible murmur, regular rhythm. Tachycardiac. ABDOMEN: No hepatosplenomegaly, normal bowel sounds, no guarding or rigidity. SPINE: Full scoliosis SKIN: No rashes CENTRAL NERVOUS SYSTEM: No focal deficits, tone is normal in all 4 extremities. EXTREMITIES: There is no peripheral edema. No clubbing, no cyanosis. Peripheral pulses are intact. Results - Laboratory Findings CBC and BMP: 12/22/17 13:39 12/22/17 13:39 PT/INR, D-dimer PT 9.3 sec (9.0-12.0) 12/21/17 10:34 INR 0.9 (<1.2) 12/21/17 10:34 Abnormal lab findings: Abnormal Labs 12/21/17 12/21/17 12/21/17 10:34 10:34 10:34 WBC 12.0 H RDW 15.8 H Neutrophils # 10.6 H Lymphocytes # 0.5 L Carbon Dioxide BUN Creatinine 0.40 L Glucose 217 H CK-MB (CK-2) 3.3 H* 12/22/17 12/22/17 13:39 13:39 WBC 14.3 H RDW 15.8 H Neutrophils # 12.4 H Lymphocytes # 0.9 L Carbon Dioxide 32 H BUN 19 H Creatinine 0.36 L Glucose 139 H CK-MB (CK-2) - Diagnostic Findings Chest x-ray: image reviewed Assessment and Plan Assessment: Impression: #1 Acute on chronic hypoxic respiratory failure secondary to severe oxygen dependent end-stage chronic obstructive pulmonary disease. Gold stage IV with an FEV1 value 27% of predicted. On home oxygen at 5 L/m. #2 Acute on chronic severe hypercapnic respiratory failure requiring an average volume assured pressure support (AVAPS) device in the outpatient setting #3 Chronic thoracic spine pain. #4 Chronic and ongoing tobacco dependence. #5 Anorexia/cachexia syndrome with protein calorie malnutrition. #6 Bipolar disorder. #7 Hyperlipidemia. #8 Poor overall functional performance based on the above-mentioned multiple comorbidities. Plan: The patient was seen and evaluated by Dr. Lino. Her chest x-ray and labs were reviewed. We'll continue her treatment for acute exacerbation of her COPD and hypercapnic respiratory failure. Continue DuoNeb inhalations 4 times a day and when necessary, IV Solu-Medrol, Symbicort. Continue with AV abscesses needed alternating with high flow nasal cannula. We'll increase her activity as tolerated. We'll continue to follow and make further recommendations based on her clinical status. I, the cosigning physician, performed a history & physical examination of the patient. Lungs sounds have bilateral wheezing. Diminished throughout. Maintaining good O2 saturations in the 90s on 10 L high flow nasal cannula/ AVAPS. I discussed the assessment and plan of care with my nurse practitioner, Michaela Ribera. I attest to the above consultation as dictated by her. Time with Patient: Greater than 30
[2017-12-22] MEDS: BUTALB/APAP/CAFF 50-325-40MG TAB PO PRN (15:04)
[2017-12-22 17:03] LABS: Glucose,Whole Blood 147 mg/dL (75-99)
[2017-12-22] MEDS: CALCIUM CARB-VIT D 500MG-200UN 1 EACH TAB PO SCH (17:12)
[2017-12-22] MEDS: INSULIN ASPART 100 UNIT/ML 1 ML 10 ML VIAL SQ SCH ×2 (17:12→21:12)
[2017-12-22] MEDS: ALPRAZolam 0.25 MG TAB PO PRN (18:02)
[2017-12-22] MEDS: risperiDONE 1 MG TAB PO SCH (19:52)
[2017-12-22] MEDS: ASPIRIN 325 MG TAB PO SCH (19:52)
[2017-12-22] MEDS: traZODone HCL 100 MG TAB PO SCH (19:53)
[2017-12-22] MEDS: buPROPion XL 150 MG TAB.ER.24H PO SCH (19:54)
[2017-12-22 20:43] LABS: Glucose,Whole Blood 133 mg/dL (75-99)
[2017-12-23] MEDS: IPRATROPIUM-ALBUTEROL 3 ML NEB INHALATION PRN ×2 (03:27→23:25)
[2017-12-23] MEDS: SODIUM CHLORIDE 0.9% 1,000 ML IV SCH ×3 (04:25→16:12)
[2017-12-23 05:40] LABS: Glucose,Whole Blood 148 mg/dL (75-99)
[2017-12-23] MEDS: HYDROcodone/APAP 7.5-325MG 1 EACH TAB PO PRN ×4 (05:44→23:55)
[2017-12-23] MEDS: methylPREDNISolone SOD SUCCI 125 MG/2 ML VIAL IV SCH ×4 (05:45→23:57)
[2017-12-23] MEDS: ALPRAZolam 0.25 MG TAB PO PRN ×3 (05:53→23:56)
[2017-12-23] MEDS: amLODIPine 10 MG TAB PO SCH (05:54)
[2017-12-23] MEDS: CALCIUM CARB-VIT D 500MG-200UN 1 EACH TAB PO SCH ×2 (05:55→17:31)
[2017-12-23] MEDS: PANTOPRAZOLE 40 MG TABLET PO SCH (05:55)
[2017-12-23] MEDS: INSULIN ASPART 100 UNIT/ML 1 ML 10 ML VIAL SQ SCH ×4 (06:02→21:39)
[2017-12-23] MEDS: SYMBICORT 160-4.5 MCG INHALER INHALATION SCH (07:33)
[2017-12-23] MEDS: IPRATROPIUM-ALBUTEROL 3 ML NEB INHALATION SCH ×4 (07:34→19:15)
[2017-12-23] MEDS: THEOPHYLLINE 24 HOUR 200 MG CAP.ER.24H PO SCH ×2 (08:05→21:32)
[2017-12-23] MEDS: FLUTICASONE 50MCG/SPRAY NASAL 16GM EA NOSTRIL SCH (08:05)
[2017-12-23] MEDS: VERAPAMIL SR 120 MG TABLET.ER PO SCH (08:05)
[2017-12-23] MEDS: PREGABALIN 75 MG CAP PO SCH ×2 (08:07→21:38)
[2017-12-23 08:37] LABS: HGB 13.8 gm/dL (11.4-16.0); Hypochromasia Slight; MCH 27.1 pg (25.0-35.0); MCHC 31.3 g/dL (31.0-37.0); MCV 86.6 fL (80.0-100.0); Platelet Count 472 k/uL (150-450); RBC 5.08 m/uL (3.80-5.40); RDW 15.7 % (11.5-15.5); WBC 14.4 k/uL (3.8-10.6)
--- NOTE | 2017-12-23 09:01 | P.CNOR ---
History of Present Illness - [facility] Consult date: 12/23/17 Requesting physician: Aung E Sheet History of present illness: Patient is a very pleasant 47-year-old female with severe chronic oxygen dependent end-stage COPD who is seen and examined at the bedside in regards to her thoracic spine and right humerus. She is known to utilize 5 L nasal cannula at home. She has been admitted to the hospital multiple times for exacerbation of COPD, most recently 11/02/2017. She presented to the emergency department on 12/21/2017 after worsening shortness of breath. Chest x-ray was taken at the time of her readmittance which showed concern for right humeral osteochondroma. Patient is also known to have compression fracture deformities at T8 and T9 diagnosed at her previous admission in October 2017. Patient was given a prescription to obtain a Spinomed TLSO brace in the outpatient setting following discharge but the patient states she was unable to obtain this brace as her insurance would not cover it at that time. She states she continues to have significant thoracic back pain. She denies any lower extremity weakness and radiculopathy bilaterally. She states she has some numbness at the right medial elbow denies but any other pain of the right upper extremity. She does have some bruising most specifically over the right forearm and hand along with some petechial-appearing spots on the right upper extremity. She states these are new since her admission. She does not have any of these spots on the left upper extremity. She denies specific pain with the right upper extremity. Patient is currently using average volume assured pressure support device in the room which she states is hers and she uses at home in the outpatient setting. Past Medical History Past Medical History: Asthma, Cancer, Chest Pain / Angina, COPD, Eye Disorder, GERD/Reflux, Hyperlipidemia, Myocardial Infarction ([place]), Osteoarthritis (OA), Pneumonia, Respiratory Disorder Additional Past Medical History / Comment(s): Pt recently admitted to [facility] on with thoracic spine fractures T8-T9, possible oseoporosis. Other HX: End stage COPD, chronic hypoxic and hypercapnic respiratory failure, home O2 at 5L/[place] and bipap at HS, steroid dependent, bronchitis, 1997 pt states she was told her EKG showed a past [place], cervical cancer with hysterectomy, PUD, carpal tunnel bilaterally, herniated discs C5-C6 and L5-L6, cervical/lumbar spondylosis, RLS, eczema, cataract L eye, tinnitis bilaterally, sinus problems. Last Myocardial Infarction Date:: UNK History of Any Multi-Drug Resistant Organisms: MRSA Year Discovered:: 06/18/2015 MDRO Source:: SPUTUM Past Surgical History: Section, Cholecystectomy, Ear Surgery, Hysterectomy, Tubal Ligation Additional Past Surgical History / Comment(s): x 2, EGD, colonoscopy with benign polypectomy, R ear cyst with surgery.. Past Anesthesia/Blood Transfusion Reactions: No Reported Reaction Additional Past Anesthesia/Blood Transfusion Reaction / Comm: Pt has never recieved blood. Smoking Status: Former smoker - Past Family History Father Family Medical History: No Reported History Additional Family Medical History / Comment(s): WAS AN ALCOHOLIC Mother Family Medical History: Cancer Additional Family Medical History / Comment(s): AT AGE 54-BOWEL CANCER Medications and Allergies Home Medications Medication Instructions Recorded Confirmed Type Albuterol Inhaler [Ventolin Hfa 2 puff INHALATION RT-QID PRN 01/03/14 12/21/17 History Inhaler] Omeprazole [PriLOSEC] 40 mg PO BID 01/03/14 12/21/17 History Multivitamins, Thera [Multivitamin 1 tab PO DAILY 12/24/14 12/21/17 History (formulary)] risperiDONE 3 mg PO HS 12/24/14 12/21/17 History traZODone HCL 300 mg PO HS 12/24/14 12/21/17 History buPROPion SR [Wellbutrin SR] 150 mg PO HS 04/30/15 12/21/17 History Aspirin [Aspirin EC] 325 mg PO HS 03/24/16 12/21/17 History Budesonide-Formot 160-4.5 Mcg 2 puff INHALATION RT-BID puff 07/13/16 12/21/17 Rx [Symbicort 160-4.5 Mcg Inhaler] Ipratropium-Albuterol Nebulize 3 ml INHALATION RT-QID neb 01/20/17 12/21/17 Rx [Duoneb 0.5 mg-3 mg/3 ml Soln] Hydrocodone/Acetaminophen [[place] 1 tab PO Q6H PRN 04/26/17 12/21/17 History 7.5-325] Theophylline 24 Hour [Akhil-24] 200 mg PO BID 07/06/17 12/21/17 History amLODIPine [Norvasc] 5 mg PO DAILY #30 tab 07/26/17 12/21/17 Rx Verapamil HCl 120 mg PO DAILY 11/02/17 12/21/17 History rOPINIRole HCL [Requip] 1 mg PO HS 11/02/17 12/21/17 History Butalb/APAP/Caff 50-325-40Mg 1 tab PO Q8H PRN 12/21/17 12/21/17 History [Fioricet 50-325-40] Calcium Carb-Vit D 250Mg-125Un 1 tab PO DAILY 12/21/17 12/21/17 History [Oscal 250+D] Fluticasone Nasal [place] [Flonase 2 spray EA NOSTRIL DAILY 12/21/17 12/21/17 History Nasal [place]] Pregabalin [Lyrica] 150 mg PO BID 12/21/17 12/21/17 History predniSONE 20 mg PO DAILY 12/21/17 12/21/17 History Allergies Allergy/AdvReac Type Severity Reaction Status Date / Time aripiprazole [From Abilify] Allergy Rash/Hives Verified 12/21/17 11:02 cephalexin [From Keflex] Allergy Unknown Verified 12/21/17 11:02 honey Allergy Rash/Hives Verified 12/21/17 11:02 methadone [Methadone] Allergy Itching Verified 12/21/17 11:02 naproxen Allergy Rash/Hives Verified 12/21/17 11:02 sulfamethoxazole Allergy Rash/Hives Verified 12/21/17 11:02 [From Bactrim] tetracycline [Tetracycline] Allergy Rash/Hives Verified 12/21/17 11:02 trimethoprim [From Bactrim] Allergy Rash/Hives Verified 12/21/17 11:02 adhesive tape AdvReac Rash/Hives Verified 12/21/17 11:02 tramadol HCl [From Ultram] AdvReac SEIZURES Verified 12/21/17 11:02 tromethamine AdvReac Nausea & Verified 12/21/17 11:02 Vomiting Physical Examination Physical exam: Patient is awake, alert, and oriented 3 Vital signs stable Good chest excursion with deep inspiration and expiration Examination of the thoracolumbar spine reveals skin is intact with no abrasions , lacerations, or bruises; no erythema, purulence or signs of infection Pain with palpation along the mid thoracic spine No pain with palpation along the lumbar spine Dorsiflexion, plantarflexion, and extensor hallucis longus positive sustained bilaterally Lower extremity strength positive sustained bilaterally No significant pain with palpation over the right humerus No significant erythema, swelling, or obvious sign of infection of the right humerus Evidence of some bruising most significant over the right forearm and right hand Evidence of some petechial appearing spots over the right upper extremity Active range of motion of the right upper extremity without significant difficulty No evidence of significant change or difficulty with the left upper extremity Active full range of motion of left upper extremity without difficulty Evidence of multiple tattoos over the right upper extremity and left upper extremity Neurovascularly intact Results Pertinent studies: Chest x-ray taken on 12/21/2017: Course and interstitium can be seen with bronchitis or interstitial pneumonitis, correlate for COPD; extension of the medial diaphysis of the humerus, correlate for right humeral osteochondroma; no evidence of cortical destruction of the right humerus; some evidence of soft tissue change at the right humerus X-rays of thoracic spine taken on 11/03/2017: Subacute T8 compression fracture deformity at approximately 30% height loss; acute T9 compression fracture deformity of approximately 30% height loss - Labs Labs: Abnormal Lab Results - Last 24 Hours (Table) 12/22/17 12/22/17 12/22/17 Range/Units 13:39 13:39 17:01 WBC 14.3 H (3.8-10.6) k/uL RDW 15.8 H (11.5-15.5) % Plt Count (150-450) k/uL Neutrophils # 12.4 H (1.3-7.7) k/uL Lymphocytes # 0.9 L (1.0-4.8) k/uL Carbon Dioxide 32 H (22-30) mmol/L BUN 19 H (7-17) mg/dL Creatinine 0.36 L (0.52-1.04) mg/dL Glucose 139 H (74-99) mg/dL POC Glucose (mg/dL) 147 H (75-99) mg/dL 12/22/17 12/23/17 12/23/17 Range/Units 20:42 05:38 08:09 WBC 14.4 H (3.8-10.6) k/uL RDW 15.7 H (11.5-15.5) % Plt Count 472 H (150-450) k/uL Neutrophils # (1.3-7.7) k/uL Lymphocytes # (1.0-4.8) k/uL Carbon Dioxide (22-30) mmol/L BUN (7-17) mg/dL Creatinine (0.52-1.04) mg/dL Glucose (74-99) mg/dL POC Glucose (mg/dL) 133 H 148 H (75-99) mg/dL Microbiology - Last 24 Hours (Table) 12/21/17 10:34 Blood Culture - Preliminary Blood No Growth after 24 hours H & H 12/21/17 12/22/17 12/23/17 Range/Units 10:34 13:39 08:09 Hgb 12.3 12.4 13.8 (11.4-16.0) gm/dL Hct 37.7 38.3 44.0 (34.0-46.0) % Coagulation 12/21/17 Range/Units 10:34 INR 0.9 (<1.2) Result Diagrams: 12/23/17 08:09 12/22/17 13:39 Assessment and Plan Assessment: Assessment: Severe chronic oxygen dependent end-stage COPD with acute on chronic hypoxic respiratory failure Possible right humerus osteochondroma Thoracic back pain Previously diagnosed subacute T8 compression fracture deformity Previously diagnosed acute T9 compression fracture deformity Osteopenia (1) Non-traumatic compression fracture of T8 thoracic vertebra Current Visit: Yes Status: Acute Code(s): M48.54XA - COLLAPSED VERTEBRA, NEC , THORACIC REGION, INIT SNOMED Code(s): 925148566 (2) Non-traumatic compression fracture of T9 thoracic vertebra Current Visit: Yes Status: Acute Code(s): M48.54XA - COLLAPSED VERTEBRA, NEC , THORACIC REGION, INIT SNOMED Code(s): 041589888 (3) Thoracic back pain Current Visit: Yes Status: Acute Code(s): M54.6 - PAIN IN THORACIC SPINE SNOMED Code(s): 355149414 (4) Osteopenia determined by x-ray Current Visit: Yes Status: Acute Code(s): M85.80 - OTH DISRD OF BONE DENSITY AND STRUCTURE, UNSPECIFIED SITE SNOMED Code(s): 577712092 (5) Osteochondroma of right humerus Current Visit: Yes Status: Acute Code(s): D16.01 - BENIGN NEOPLM OF SCAPULA AND LONG BONES OF RIGHT UPPER LIMB SNOMED Code(s): 62507794 (6) Acute exacerbation of chronic obstructive airways disease Current Visit: No Status: Acute Code(s): J44.1 - CHRONIC OBSTRUCTIVE PULMONARY DISEASE W (ACUTE) EXACERBATION SNOMED Code(s): 282480352 Plan: Plan: 1. Patient has been discussed in detail with Dr. Harshad Irving and imaging has been reviewed. After reviewing of imaging, physical examination the patient, and further discussion with the patient, we will plan for further workup in regards to her thoracic spine and right humerus. We will order repeat x-rays of the thoracic spine given her known compression fracture deformities at T8 and T9 without significant improvement in regards of pain. A prescription is also written and provided to case management to obtain a Spinomed TLSO brace. Once this brace is delivered and fitted appropriately, patient should wear this brace while sitting upright at greater than 45, during ambulation, and during increase activities. Brace does not have to be worn while lying in bed or while bathing. We will also plan to order an MRI of the right humerus with and without contrast as well as complete x-ray series of the right humerus for further evaluation of her possible right humerus osteochondroma seen on chest x- ray imaging. Following the results of this imaging, we will follow up with an appropriate plan of care. 2. Patient will continue to be followed by pulmonology and medicine 3. We will continue to follow patient closely 4. Patient has been discussed in detail with Dr. Harshad Irving he agrees with this plan Time with Patient: Less than 30
[2017-12-23 09:06] LABS: ALT 14 U/L (9-52); AST 26 U/L (14-36); Alkaline Phosphatase 94 U/L (38-126); Anion Gap 14 mmol/L; Blood Urea Nitrogen 25 mg/dL (7-17); Calcium 10.7 mg/dL (8.4-10.2); Carbon Dioxide 26 mmol/L (22-30); Chloride 105 mmol/L (98-107); Glucose 87 mg/dL (74-99); Sodium 145 mmol/L (137-145); Total Bilirubin 0.5 mg/dL (0.2-1.3); Total Protein 6.9 g/dL (6.3-8.2)
--- NOTE | 2017-12-23 09:39 | P.PN ---
Subjective Progress Note Date: 12/23/17 Principal diagnosis: COPD exacerbation Progress note dated 12/23/2017 47-year-old female who looks 87, was history of severe end-stage COPD. Her FEV1 is 27% of predicted. She is oxygen dependent. Was admitted with a diagnosis of COPD exacerbation. Hasn't had many admissions to this hospital on the past. Has history of acute on chronic hypercapnic and hypoxemic respiratory failure requiring average volume assured pressure support. The patient also has chronic back pain chronic and ongoing tobacco dependence severe anorexia cachexia syndrome bipolar disorder hyperlipidemia and general medical debility. She feels a bit better today than she did yesterday. She is being treated with standard medications including her breathing treatments bronchodilators steroids antibiotics, etc. Her overall prognosis is very poor though. Her CODE STATUS really does need to be addressed. It would be a disaster, if she ended up on life support. Objective - Vital Signs Vital signs: Vital Signs Temp 96.8 F L 12/23/17 08:14 Pulse 105 H 12/23/17 08:17 Resp 28 H 12/23/17 08:17 BP 176/98 12/23/17 08:14 Pulse Ox 93 L 12/23/17 08:14 Intake & Output 12/22/17 12/23/17 12/23/17 18:59 06:59 18:59 Intake Total 550 900 Output Total 1900 Balance -1350 900 Weight 59.5 kg Intake: IV 900 Sodium Chloride 0.9% 1, 900 000 ml @ 75 mls/hr IV . [id number] [facility] Rx#:[id number] Intake, IV Titration 450 Amount Sodium Chloride 0.9% 1, 450 000 ml @ 75 mls/hr IV . [id number] [facility] Rx#:[id number] Oral 100 Output: Urine 1900 Other: Voiding Method Bedside Commode Bedside Commode Bedside Commode # Voids 1 1 1 # Bowel Movements 0 - Exam The patient's currently on her average volume short pressure-support ventilator. Her mask is in place. She's quite tachypnea and dyspneic. She is alert. HEENT examination is grossly unremarkable. Mucous membranes are moist. No oral lesions. Neck supple. Full range of motion. No adenopathy thyromegaly or neck vein distention. Cardiovascular examination reveals regular rhythm rate. S1-S2 normal. No S3 or S4. No discernible murmur noted. She is tachycardic. Lungs revealed very severely diminished breath sounds. There is coarse inspiratory and expiratory rhonchi and wheezes. Breath sounds are severely diminished. There is prolongation. Breath sounds are equal bilaterally. Abdomen soft bowel sounds are heard. No masses or tenderness. Extremities are intact. No cyanosis clubbing or edema. Skin is without rash or lesion. Neurologic examination is brief but nonfocal. - Labs CBC & Chem 7: 12/23/17 08:09 12/23/17 08:09 Labs: Abnormal Lab Results - Last 24 Hours (Table) 12/22/17 12/22/17 12/22/17 Range/Units 13:39 13:39 17:01 WBC 14.3 H (3.8-10.6) k/uL RDW 15.8 H (11.5-15.5) % Plt Count (150-450) k/uL Neutrophils # 12.4 H (1.3-7.7) k/uL Lymphocytes # 0.9 L (1.0-4.8) k/uL Carbon Dioxide 32 H (22-30) mmol/L BUN 19 H (7-17) mg/dL Creatinine 0.36 L (0.52-1.04) mg/dL Glucose 139 H (74-99) mg/dL POC Glucose (mg/dL) 147 H (75-99) mg/dL Calcium (8.4-10.2) mg/dL 12/22/17 12/23/17 12/23/17 Range/Units 20:42 05:38 08:09 WBC 14.4 H (3.8-10.6) k/uL RDW 15.7 H (11.5-15.5) % Plt Count 472 H (150-450) k/uL Neutrophils # (1.3-7.7) k/uL Lymphocytes # (1.0-4.8) k/uL Carbon Dioxide (22-30) mmol/L BUN (7-17) mg/dL Creatinine (0.52-1.04) mg/dL Glucose (74-99) mg/dL POC Glucose (mg/dL) 133 H 148 H (75-99) mg/dL Calcium (8.4-10.2) mg/dL 12/23/17 Range/Units 08:09 WBC (3.8-10.6) k/uL RDW (11.5-15.5) % Plt Count (150-450) k/uL Neutrophils # (1.3-7.7) k/uL Lymphocytes # (1.0-4.8) k/uL Carbon Dioxide (22-30) mmol/L BUN 25 H (7-17) mg/dL Creatinine 0.38 L (0.52-1.04) mg/dL Glucose (74-99) mg/dL POC Glucose (mg/dL) (75-99) mg/dL Calcium 10.7 H (8.4-10.2) mg/dL Microbiology - Last 24 Hours (Table) 12/21/17 10:34 Blood Culture - Preliminary Blood No Growth after 24 hours Assessment and Plan Assessment: Assessment Acute on chronic hypoxemic and hypercapnic respiratory failure and a patient with end-stage COPD. FEV1 is 27% of predicted. The patient's on home oxygen therapy and uses average volume assured pressure support typically at nighttime for ventilatory support. Hypercapnic respiratory failure and chronic back pain Chronic and ongoing tobacco dependence Anorexia/cachexia syndrome Bipolar disorder Hyperlipidemia General medical debility History of cervical cancer Plan: Plan dated 12/23/2017 The patient seems to be feeling a bit better. White count 14.4 HEENT 13.8 hematocrit 44 and platelet count 472,000. Electrolytes look normal including sodium and potassium chloride and CO2. The BUN and creatinine 25 and 0.38. Blood cultures are thus far negative. Chest x-ray did not show anything acute. Medications are reviewed. Prognosis is poor. CODE STATUS needs to be addressed by the primary service. In the past, she has been a no code. Time with Patient: Less than 30
[2017-12-23 11:47] LABS: Glucose,Whole Blood 153 mg/dL (75-99)
[2017-12-23] MEDS: MULTIVITAMINS, THERA 1 EACH TAB PO SCH (11:50)
[2017-12-23 16:25] LABS: Glucose,Whole Blood 188 mg/dL (75-99)
--- NOTE | 2017-12-23 16:54 | XR ---
EXAMINATION TYPE: XR humerus RT DATE OF EXAM: 12/23/2017 CLINICAL HISTORY: Presumed abnormal outside x-ray TECHNIQUE: Two views of the right humerus are obtained. COMPARISON: None. FINDINGS: There is no acute fracture or dislocation seen in the right humerus. There is degenerative spurring at right acromioclavicular joint. Right elbow joint is felt within normal limits. At mid di aphyseal level there is irregular ossific cortical projection laterally. Finding could reflect osteoc hondroma. Correlate with point tenderness at this level. The overlying soft tissue appears within nor mal limits. IMPRESSION: No acute fracture or dislocation is evident in the right humerus.
--- NOTE | 2017-12-23 16:55 | XR ---
EXAMINATION TYPE: XR thoracic spine 2V DATE OF EXAM: 12/23/2017 CLINICAL HISTORY: Back pain. T8 and T9 compression fractures TECHNIQUE: Frontal, lateral, and swimmer's view of thoracic spine are obtained. COMPARISON: Thoracic spine x-ray November 03, 2017. FINDINGS: Thoracic spine show stable alignment without evidence of acute fracture or dislocation. The re is exaggerated thoracic kyphosis with mild to moderate compression T8 level redemonstrated and mil d compression T9 level redemonstrated. No new fractures are present. Disc space heights are maintaine d. Visualized ribs are unremarkable. IMPRESSION: Stable mild to moderate compression fractures T8 and T9 levels.
--- NOTE | 2017-12-23 16:58 | P.PN ---
Subjective Progress Note Date: 12/23/17 Principal diagnosis: Acute exacerbation COPD Possible Right femoral osteochondroma Compression fracture deformities at T8 and T9 Dehydration This is a very pleasant 47-year-old female patient who follows with Dr. John as her primary care physician. She has a history of gastroesophageal reflux disease, a arthritis, hyperlipidemia, chronic pain syndrome, cervical and lumbar spine spondylosis cysts, chronic migraines, peptic ulcer disease, depression, cervical cancer, anorexia/cachexia malnourishment a significant total body protein mass loss. She has has a history of severe oxygen dependent end-stage chronic obstructive pulmonary disease. She utilizes oxygen at 5 L/m per nasal cannula at home. She also utilizes an average volume assured pressure support (AVAPS) device. She has chronic and ongoing tobacco dependence. She follows with Dr. Molina in our office. She her last FEV1 value is 27% of predicted. The patient also has history of MRSA pneumonia and strep pneumonias. She has had multiple admissions for COPD exacerbations most recently 11/02/2017. He is admitted here yesterday morning after having worsening shortness of breath, dry nonproductive cough. She states she did have a fever at home. She's had significant chest tightness and wheezing. Despite increased use of her nebulized treatments without much improvement. Her chest x-ray reveals coarsened interstitium consistent with bronchitis or interstitial pneumonitis. She has her home a VATS device in place. Otherwise she requires 10 L high flow nasal cannula to maintain O2 saturations in the 90s. She's been tachycardic. Tachypneic. Currently afebrile. The culture reveals no growth to date. White count 14.3. Hemoglobin 12.4. Creatinine 0.36. 12/23/2017; Patient is seen and evaluated at bedside; continues to have marked shortness of breath even on rest; speaks in very short sentences; does relate she feels slightly better compared to yesterday; patient is resumed on treatment with bronchodilators, steroids and antibiotics; CODE STATUS was discussed with patient in great detail; patient relates that she always has expressed a strong wish to remain DO NOT RESUSCITATE; patient relates that a change in CODE STATUS and records might be initiated last son; patient states that she is tired of dealing with respiratory problems and wouldn't want CODE STATUS to be changed to DO NOT RESUSCITATE Objective - Vital Signs Vital signs: Vital Signs Temp 98.0 F 12/23/17 16:03 Pulse 125 H 12/23/17 16:07 Resp 28 H 12/23/17 16:07 BP 175/91 12/23/17 16:03 Pulse Ox 91 L 12/23/17 16:03 Intake & Output 12/22/17 12/23/17 12/23/17 18:59 06:59 18:59 Intake Total 550 1696 Output Total 1900 1500 Balance -1350 196 Weight 59.5 kg 59.5 kg Intake: IV 900 Sodium Chloride 0.9% 1, 900 000 ml @ 75 mls/hr IV . [id number] [facility] Rx#:[id number] Intake, IV Titration 450 Amount Sodium Chloride 0.9% 1, 450 000 ml @ 75 mls/hr IV . [id number] [facility] Rx#:[id number] Oral 100 796 Output: Urine 1900 1500 Other: Voiding Method Bedside Commode Bedside Commode Bedside Commode # Voids 1 1 4 # Bowel Movements 0 - Exam - Constitutional General appearance: Present: average body habitus, cooperative, in mild respiratory distress - EENT Eyes: Present: anicteric sclerae, EOMI, PERRLA, normal appearance ENT: Present: hearing grossly normal, normal oropharynx Ears: bilateral: normal - Neck Neck: Present: normal ROM. Absent: lymphadenopathy, rigidity, thyromegaly Carotids: negative: bruit present Thyroid: bilateral: normal size, negative: enlarged, nodule - Respiratory Respiratory: bilateral: Markedly decreased breath sounds bilaterally; patient does use accessory muscles; talks in short sentences - Cardiovascular Rhythm: regular Heart sounds: normal: S1, S2 Abnormal Heart Sounds: Absent: systolic murmur, diastolic murmur - Gastrointestinal General gastrointestinal: Present: normal bowel sounds, soft. Absent: distended , organomegaly, tenderness - Genitourinary Genitourinary Comment(s): deferred - Integumentary Integumentary: Present: normal turgor. Absent: jaundiced, rash, ulcer - Neurologic Neurologic: Present: CNII-XII intact. Absent: focal deficits - Musculoskeletal Musculoskeletal: Present: gait normal, strength equal bilaterally - Psychiatric Psychiatric: Present: A&O x's 3, appropriate affect, intact judgment & insight - Labs CBC & Chem 7: 12/23/17 08:09 12/23/17 08:09 Labs: Abnormal Lab Results - Last 24 Hours (Table) 12/22/17 12/22/17 12/23/17 Range/Units 17:01 20:42 05:38 WBC (3.8-10.6) k/uL RDW (11.5-15.5) % Plt Count (150-450) k/uL BUN (7-17) mg/dL Creatinine (0.52-1.04) mg/dL POC Glucose (mg/dL) 147 H 133 H 148 H (75-99) mg/dL Calcium (8.4-10.2) mg/dL 12/23/17 12/23/17 12/23/17 Range/Units 08:09 08:09 11:46 WBC 14.4 H (3.8-10.6) k/uL RDW 15.7 H (11.5-15.5) % Plt Count 472 H (150-450) k/uL BUN 25 H (7-17) mg/dL Creatinine 0.38 L (0.52-1.04) mg/dL POC Glucose (mg/dL) 153 H (75-99) mg/dL Calcium 10.7 H (8.4-10.2) mg/dL Microbiology - Last 24 Hours (Table) 12/21/17 10:34 Blood Culture - Preliminary Blood No Growth after 48 hours Assessment and Plan Assessment: 1. Acute on chronic hypoxemic and hypercapnic respiratory failure and a patient with end-stage COPD. FEV1 is 27% of predicted. The patient's on home oxygen therapy and uses average volume assured pressure support typically at nighttime for ventilatory support. 2. Nontraumatic compression fracture off T8 and T9 -Orthopedic service is following and recommending repeat x-rays of thoracic spine - Patient is also given prescription for spinomed TLSO brace - Or 3 recommending for brace to be worn while sitting upright at greater than 45 during ambulation and during activities 3. Osteochondroma of right humerus - Or still plans to order an MRI of the right humerus without contrast along with complete x-ray series of right humerus for further evaluation possible right humerus osteochondroma 4. Acute exacerbation of COPD - Patient remains on bronchodilator nebulizer treatments along with steroids and antibiotics - Pulmonary is following and recommending to continue current treatment - Patient has been no code previously; pulmonary recommending to continue with no CODE STATUS due to grave prognosis of patient 5. Dehydration - Clinically resolved; we will continue to monitor SURAJ's renal function and electrolytes closely 6. Chronic and ongoing tobacco dependence; counseling done in great detail; patient understands 7. Anorexia/cachexia syndrome; - we will recommend dietary supplement with high energy shakes - We will continue to encourage patient to have small meals after short intervals 8. Hyperlipidemia; stable on home medication 9. General medical debility; we recommend PT/OT evaluation and treatment once stable 10. DVT/GI prophylaxis CODE STATUS; DO NOT RESUSCITATE Time with Patient: Greater than 30
[2017-12-23] MEDS: FORMOTEROL FUMARATE 20 MCG/2 ML NEBU INHALATION SCH (19:14)
[2017-12-23] MEDS: BUDESONIDE 1 MG/2 ML NEBU INHALATION SCH (19:15)
[2017-12-23 20:59] LABS: Glucose,Whole Blood 146 mg/dL (75-99)
[2017-12-23] MEDS: ASPIRIN 325 MG TAB PO SCH (21:31)
[2017-12-23] MEDS: buPROPion XL 150 MG TAB.ER.24H PO SCH (21:31)
[2017-12-23] MEDS: risperiDONE 1 MG TAB PO SCH (21:31)
[2017-12-23] MEDS: traZODone HCL 100 MG TAB PO SCH (21:32)
[2017-12-24] MEDS: IPRATROPIUM-ALBUTEROL 3 ML NEB INHALATION PRN ×2 (03:29→13:53)
[2017-12-24 06:08] LABS: Glucose,Whole Blood 148 mg/dL (75-99)
[2017-12-24] MEDS: methylPREDNISolone SOD SUCCI 125 MG/2 ML VIAL IV SCH ×4 (06:20→23:29)
[2017-12-24] MEDS: SODIUM CHLORIDE 0.9% 1,000 ML IV SCH (06:21)
[2017-12-24] MEDS: PANTOPRAZOLE 40 MG TABLET PO SCH (06:21)
[2017-12-24] MEDS: ALPRAZolam 0.25 MG TAB PO PRN ×2 (06:22→14:42)
[2017-12-24] MEDS: CALCIUM CARB-VIT D 500MG-200UN 1 EACH TAB PO SCH ×2 (06:22→17:03)
[2017-12-24 07:15] LABS: Basophils % (A) 0 %; Eosinophils # (A) 0.1 k/uL (0-0.7); Eosinophils % (A) 0 %; HCT 42.5 % (34.0-46.0); HGB 13.8 gm/dL (11.4-16.0); Lymphocytes # (A) 1.2 k/uL (1.0-4.8); Lymphocytes % (A) 8 %; MCH 27.9 pg (25.0-35.0); MCHC 32.4 g/dL (31.0-37.0); Mean Platelet Volume 7.2; Monocytes # (A) 0.7 k/uL (0-1.0); Monocytes % (A) 5 %; Neutrophils % (A) 84 %; Platelet Count 504 k/uL (150-450); RBC 4.94 m/uL (3.80-5.40); RDW 15.9 % (11.5-15.5); WBC 14.4 k/uL (3.8-10.6)
[2017-12-24] MEDS: BUDESONIDE 1 MG/2 ML NEBU INHALATION SCH ×2 (07:22→20:31)
[2017-12-24] MEDS: IPRATROPIUM-ALBUTEROL 3 ML NEB INHALATION SCH ×4 (07:23→20:31)
[2017-12-24] MEDS: FORMOTEROL FUMARATE 20 MCG/2 ML NEBU INHALATION SCH ×2 (07:23→20:31)
[2017-12-24 07:33] LABS: Anion Gap 14 mmol/L; Blood Urea Nitrogen 32 mg/dL (7-17); Carbon Dioxide 32 mmol/L (22-30); Chloride 101 mmol/L (98-107); Glucose 140 mg/dL (74-99); Potassium 4.8 mmol/L (3.5-5.1); Sodium 147 mmol/L (137-145)
[2017-12-24] MEDS: INSULIN ASPART 100 UNIT/ML 1 ML 10 ML VIAL SQ SCH ×4 (07:49→21:34)
[2017-12-24] MEDS: AZITHROMYCIN 500 MG TAB PO SCH (07:52)
[2017-12-24] MEDS: FLUTICASONE 50MCG/SPRAY NASAL 16GM EA NOSTRIL SCH (07:52)
[2017-12-24] MEDS: amLODIPine 10 MG TAB PO SCH (07:52)
[2017-12-24] MEDS: THEOPHYLLINE 24 HOUR 200 MG CAP.ER.24H PO SCH ×2 (07:53→20:22)
[2017-12-24] MEDS: PREGABALIN 75 MG CAP PO SCH ×2 (07:53→22:07)
[2017-12-24] MEDS: VERAPAMIL SR 120 MG TABLET.ER PO SCH (07:53)
[2017-12-24] MEDS: HYDROcodone/APAP 7.5-325MG 1 EACH TAB PO PRN ×3 (08:06→20:23)
--- NOTE | 2017-12-24 10:53 | P.PN ---
Progress Note - Text Progress Note Date: 12/24/17 Patient is a very pleasant 47-year-old female with severe chronic oxygen dependent end-stage COPD who is seen and examined at the bedside or follow-up evaluation in regards to her thoracic spine and right humerus. She has not had significant change since being seen and examined yesterday. She is known to utilize 5 L nasal cannula at home. She has been admitted to the hospital multiple times for exacerbation of COPD, most recently 11/02/2017. She presented to the emergency department on 12/21/2017 after worsening shortness of breath. Chest x-ray was taken at the time of her readmittance which showed concern for right humeral osteochondroma. Patient is also known to have compression fracture deformities at T8 and T9 diagnosed at her previous admission in October 2017. X-rays of the right humerus and thoracic spine were taken yesterday. Patient has also been fitted with a Spinomed TLSO brace, it was ordered yesterday. She continues to have ongoing thoracic back pain without significant changes compared to yesterday. She denies any lower extremity weakness and radiculopathy bilaterally. She states she continues to have some numbness at the right medial elbow denies but any other pain of the right upper extremity. She does have some bruising most specifically over the right forearm and hand along with some petechial-appearing spots on the right upper extremity. She does not have any of these spots on the left upper extremity. She denies specific pain with the right upper extremity. Patient is currently on 10 L of O2 nasal cannula and is not using her average volume assured pressure support device, which is in the room. Physical exam: Patient is awake, alert, and oriented 3 Vital signs stable Good chest excursion with deep inspiration and expiration Examination of the thoracolumbar spine reveals skin is intact with no abrasions , lacerations, or bruises; no erythema, purulence or signs of infection Pain with palpation along the mid thoracic spine No pain with palpation along the lumbar spine Dorsiflexion, plantarflexion, and extensor hallucis longus positive sustained bilaterally Lower extremity strength positive sustained bilaterally No significant pain with palpation over the right humerus Palpable bony projection over the right lateral humerus No significant erythema, swelling, or obvious sign of infection of the right humerus Evidence of some bruising most significant over the right forearm and right hand Evidence of some petechial appearing spots over the right upper extremity Active range of motion of the right upper extremity without significant difficulty No evidence of significant change or difficulty with the left upper extremity Active full range of motion of left upper extremity without difficulty Evidence of multiple tattoos over the right upper extremity and left upper extremity Neurovascularly intact Pertinent studies: X-ray was thoracic spine taken on 12/23/2017: Her T-ball body compression fractures at T8 and T9 appear stable without significant changes compared to previous study; no evidence of new impression fracture deformity; intervertebral disc spacing appears to be adequately maintained; overall alignment is maintained; evidence of kyphosis at approximately T8 X-rays the right humerus taken on 12/23/2017: Evidence of irregular ossific cortical projection laterally at the right humerus that could reflect osteochondroma; no evidence of fracture Chest x-ray taken on 12/21/2017: Course and interstitium can be seen with bronchitis or interstitial pneumonitis, correlate for COPD; extension of the medial diaphysis of the humerus, correlate for right humeral osteochondroma; no evidence of cortical destruction of the right humerus; some evidence of soft tissue change at the right humerus X-rays of thoracic spine taken on 11/03/2017: Subacute T8 compression fracture deformity at approximately 30% height loss; acute T9 compression fracture deformity of approximately 30% height loss Assessment: Severe chronic oxygen dependent end-stage COPD with acute on chronic hypoxic respiratory failure Possible right humerus osteochondroma Thoracic back pain Previously diagnosed subacute T8 compression fracture deformity Previously diagnosed acute T9 compression fracture deformity Osteopenia Plan: 1. Patient has been discussed in detail with Dr. Harshad Irving and imaging has been reviewed. Since being seen and examined yesterday, x-ray imaging of the right humerus and thoracic spine has been completed. In regards to her thoracic spine, compression fracture deformity at T8 and T9 appear stable without significant change. A prescription for a Spinomed TLSO brace was written yesterday. This brace has been delivered and fitted appropriate. We discussed patient should wear this brace while sitting upright at greater than 45, during ambulation, and during increase activities. Brace does not have to be worn while lying in bed or while bathing. We are not currently planning for surgical intervention with kyphoplasty at this time at her fracture sites of T8 and T9. X-rays of the right humerus showed evidence of irregular ossific cortical projection laterally at the right humerus that could reflect osteochondroma, which was seen on previous chest x-ray. MRI of the right humerus with and without contrast was unable to be performed yesterday. This order continues to be placed and we will wait for the MRI to be completed before deciding on appropriate plan of care in regards to her right humerus. She may continue to use her right upper extremity for activities to tolerance. 2. Patient will continue to be followed by pulmonology and medicine 3. We will continue to follow patient closely 4. Patient has been discussed in detail with Dr. Harshad Irving he agrees with this plan
[2017-12-24 11:24] LABS: Glucose,Whole Blood 125 mg/dL (75-99)
[2017-12-24] MEDS: MULTIVITAMINS, THERA 1 EACH TAB PO SCH (11:52)
[2017-12-24] MEDS ORDERED: ALBUTEROL INHALER 60 PUFF/8 GM INHALER INHALATION PRN (13:33)
--- NOTE | 2017-12-24 13:37 | P.PN ---
Subjective Progress Note Date: 12/24/17 Principal diagnosis: This is a very pleasant 47-year-old female patient who follows with Dr. John as her primary care physician. She has a history of gastroesophageal reflux disease, a arthritis, hyperlipidemia, chronic pain syndrome, cervical and lumbar spine spondylosis cysts, chronic migraines, peptic ulcer disease, depression, cervical cancer, anorexia/cachexia malnourishment a significant total body protein mass loss. She has has a history of severe oxygen dependent end-stage chronic obstructive pulmonary disease. She utilizes oxygen at 5 L/m per nasal cannula at home. She also utilizes an average volume assured pressure support (AVAPS) device. She has chronic and ongoing tobacco dependence. She follows with Dr. Molina in our office. She her last FEV1 value is 27% of predicted. The patient also has history of MRSA pneumonia and strep pneumonias. She has had multiple admissions for COPD exacerbations most recently 11/02/2017. He is admitted here yesterday morning after having worsening shortness of breath, dry nonproductive cough. She states she did have a fever at home. She's had significant chest tightness and wheezing. Despite increased use of her nebulized treatments without much improvement. Her chest x-ray reveals coarsened interstitium consistent with bronchitis or interstitial pneumonitis. She has her home a VATS device in place. Otherwise she requires 10 L high flow nasal cannula to maintain O2 saturations in the 90s. She's been tachycardic. Tachypneic. Currently afebrile. The culture reveals no growth to date. White count 14.3. Hemoglobin 12.4. Creatinine 0.36. Patient is seen again as a 12/24/2017 in follow-up on the selective care unit. She is awake and alert. She is still quite dyspneic with even minimal conversation, very poor activity tolerance. She's been using her AVAPS device throughout the evening and during the day at times. Otherwise, she still requiring 10 L high flow nasal cannula to maintain O2 saturations in the 90s. She has been afebrile. Slightly tachycardic. The culture reveals no growth to date. White count 14.4. Hemoglobin 13.8. Creatinine 0.43. Bicarb 32. Objective - Vital Signs Vital signs: Vital Signs Temp 98.0 F 12/24/17 12:00 Pulse 92 12/24/17 12:00 Resp 16 12/24/17 12:00 BP 164/94 12/24/17 12:00 Pulse Ox 92 L 12/24/17 12:00 Intake & Output 12/23/17 12/24/17 12/24/17 18:59 06:59 18:59 Intake Total 1696 222 Output Total 1500 1500 600 Balance 196 -1500 -378 Weight 59.5 kg 58.8 kg Intake: IV 900 Sodium Chloride 0.9% 1, 900 000 ml @ 75 mls/hr IV . [id number] Rx#:[id number] Oral 796 222 Output: Urine 1500 1500 600 Other: Voiding Method Bedside Commode Bedside Commode # Voids 4 0 - Exam GENERAL EXAM: Frail, cachectic, mild respiratory distress. Alert and oriented 3. EYES: Normal reaction of pupils, equal size. NOSE: Clear with pink turbinates. THROAT: No erythema or exudates. NECK: No masses, no JVD. CHEST: No abnormalities LUNGS: Equal air entry with bilateral end expiratory wheeze. Diminished throughout.. CVS: S1 and S2 normal with no audible murmur, regular rhythm. Tachycardiac. ABDOMEN: No hepatosplenomegaly, normal bowel sounds, no guarding or rigidity. SPINE: Full scoliosis SKIN: No rashes CENTRAL NERVOUS SYSTEM: No focal deficits, tone is normal in all 4 extremities. EXTREMITIES: There is no peripheral edema. No clubbing, no cyanosis. Peripheral pulses are intact. - Labs CBC & Chem 7: 12/24/17 06:29 12/24/17 06:29 Labs: Abnormal Lab Results - Last 24 Hours (Table) 12/23/17 12/23/17 12/24/17 Range/Units 16:23 20:57 05:56 WBC (3.8-10.6) k/uL RDW (11.5-15.5) % Plt Count (150-450) k/uL Neutrophils # (1.3-7.7) k/uL Sodium (137-145) mmol/L Carbon Dioxide (22-30) mmol/L BUN (7-17) mg/dL Creatinine (0.52-1.04) mg/dL Glucose (74-99) mg/dL POC Glucose (mg/dL) 188 H 146 H 148 H (75-99) mg/dL 12/24/17 12/24/17 12/24/17 Range/Units 06:29 06:29 11:20 WBC 14.4 H (3.8-10.6) k/uL RDW 15.9 H (11.5-15.5) % Plt Count 504 H (150-450) k/uL Neutrophils # 12.0 H (1.3-7.7) k/uL Sodium 147 H (137-145) mmol/L Carbon Dioxide 32 H (22-30) mmol/L BUN 32 H (7-17) mg/dL Creatinine 0.43 L (0.52-1.04) mg/dL Glucose 140 H (74-99) mg/dL POC Glucose (mg/dL) 125 H (75-99) mg/dL Microbiology - Last 24 Hours (Table) 12/21/17 10:34 Blood Culture - Preliminary Blood No Growth after 72 hours Assessment and Plan Assessment: Impression: #1 Acute on chronic hypoxic respiratory failure secondary to severe oxygen dependent end-stage chronic obstructive pulmonary disease. Gold stage IV with an FEV1 value 27% of predicted. On home oxygen at 5 L/m. #2 Acute on chronic severe hypercapnic respiratory failure requiring an average volume assured pressure support (AVAPS) device in the outpatient setting #3 Chronic thoracic spine pain. #4 Chronic and ongoing tobacco dependence. #5 Anorexia/cachexia syndrome with protein calorie malnutrition. #6 Bipolar disorder. #7 Hyperlipidemia. #8 Poor overall functional performance based on the above-mentioned multiple comorbidities. Plan: The patient was seen and evaluated by Dr. Lino. We'll continue her treatment for acute exacerbation of her COPD and hypercapnic respiratory failure. Continue DuoNeb inhalations 4 times a day and when necessary, IV Solu-Medrol, Pulmicort and Perforomist. Continue with AVAPS device as needed alternating with high flow nasal cannula. We'll increase her activity as tolerated. We'll continue to follow and make further recommendations based on her clinical status. I, the cosigning physician, performed a history & physical examination of the patient. Lungs sounds have bilateral wheezing. Diminished throughout. Maintaining good O2 saturations in the 90s on 10 L high flow nasal cannula/ AVAPS. I discussed the assessment and plan of care with my nurse practitioner, Michaela Ribera. I attest to the above note as dictated by her.
[2017-12-24] MEDS: SODIUM CHLORIDE 0.45% 1,000 ML IV SCH (14:03)
[2017-12-24 16:11] LABS: Glucose,Whole Blood 243 mg/dL (75-99)
[2017-12-24] MEDS: ASPIRIN 325 MG TAB PO SCH (20:22)
[2017-12-24] MEDS: risperiDONE 1 MG TAB PO SCH (20:22)
[2017-12-24] MEDS: traZODone HCL 100 MG TAB PO SCH (20:22)
[2017-12-24] MEDS: buPROPion XL 150 MG TAB.ER.24H PO SCH (20:22)
[2017-12-24 21:05] LABS: Glucose,Whole Blood 102 mg/dL (75-99)
[2017-12-25] MEDS: IPRATROPIUM-ALBUTEROL 3 ML NEB INHALATION PRN ×2 (00:11→03:18)
[2017-12-25] MEDS: HYDROcodone/APAP 7.5-325MG 1 EACH TAB PO PRN ×4 (03:39→23:18)
[2017-12-25] MEDS: methylPREDNISolone SOD SUCCI 125 MG/2 ML VIAL IV SCH ×4 (06:29→23:18)
[2017-12-25] MEDS: PANTOPRAZOLE 40 MG TABLET PO SCH (06:29)
[2017-12-25] MEDS: CALCIUM CARB-VIT D 500MG-200UN 1 EACH TAB PO SCH ×2 (06:29→17:38)
[2017-12-25] MEDS: ALPRAZolam 0.25 MG TAB PO PRN (06:29)
[2017-12-25] MEDS: INSULIN ASPART 100 UNIT/ML 1 ML 10 ML VIAL SQ SCH ×4 (06:32→21:36)
[2017-12-25 06:45] LABS: Glucose,Whole Blood 156 mg/dL (75-99)
[2017-12-25 06:53] LABS: Basophils % (A) 0 %; Eosinophils % (A) 0 %; HCT 41.3 % (34.0-46.0); Lymphocytes # (A) 1.2 k/uL (1.0-4.8); Lymphocytes % (A) 10 %; MCH 26.8 pg (25.0-35.0); MCHC 31.4 g/dL (31.0-37.0); MCV 85.4 fL (80.0-100.0); Mean Platelet Volume 7.3; Monocytes # (A) 0.5 k/uL (0-1.0); Monocytes % (A) 4 %; Neutrophils # (A) 9.6 k/uL (1.3-7.7); Neutrophils % (A) 82 %; Platelet Count 527 k/uL (150-450); RBC 4.84 m/uL (3.80-5.40); RDW 15.7 % (11.5-15.5); WBC 11.8 k/uL (3.8-10.6)
[2017-12-25 07:11] LABS: Anion Gap 11 mmol/L; Blood Urea Nitrogen 29 mg/dL (7-17); Calcium 10.1 mg/dL (8.4-10.2); Carbon Dioxide 36 mmol/L (22-30); Chloride 99 mmol/L (98-107); Glucose 161 mg/dL (74-99); Potassium 4.7 mmol/L (3.5-5.1); Sodium 146 mmol/L (137-145)
[2017-12-25] MEDS: FORMOTEROL FUMARATE 20 MCG/2 ML NEBU INHALATION SCH ×2 (07:43→19:44)
[2017-12-25] MEDS: IPRATROPIUM-ALBUTEROL 3 ML NEB INHALATION SCH ×4 (07:43→19:45)
[2017-12-25] MEDS: BUDESONIDE 1 MG/2 ML NEBU INHALATION SCH ×2 (07:43→19:44)
[2017-12-25] MEDS: amLODIPine 10 MG TAB PO SCH (07:57)
[2017-12-25] MEDS: THEOPHYLLINE 24 HOUR 200 MG CAP.ER.24H PO SCH ×2 (07:57→19:48)
[2017-12-25] MEDS: PREGABALIN 75 MG CAP PO SCH ×2 (07:57→19:47)
[2017-12-25] MEDS: AZITHROMYCIN 500 MG TAB PO SCH (07:57)
[2017-12-25] MEDS: FLUTICASONE 50MCG/SPRAY NASAL 16GM EA NOSTRIL SCH (07:58)
[2017-12-25] MEDS: VERAPAMIL SR 120 MG TABLET.ER PO SCH (07:58)
--- NOTE | 2017-12-25 10:53 | P.PN ---
Subjective Progress Note Date: 12/25/17 Principal diagnosis: COPD exacerbation Progress note dated 12/23/2017 47-year-old female who looks 87, was history of severe end-stage COPD. Her FEV1 is 27% of predicted. She is oxygen dependent. Was admitted with a diagnosis of COPD exacerbation. Hasn't had many admissions to this hospital on the past. Has history of acute on chronic hypercapnic and hypoxemic respiratory failure requiring average volume assured pressure support. The patient also has chronic back pain chronic and ongoing tobacco dependence severe anorexia cachexia syndrome bipolar disorder hyperlipidemia and general medical debility. She feels a bit better today than she did yesterday. She is being treated with standard medications including her breathing treatments bronchodilators steroids antibiotics, etc. Her overall prognosis is very poor though. Her CODE STATUS really does need to be addressed. It would be a disaster, if she ended up on life support. Progress note dated 12/25/2017 The patient is seen again on December 25. Doing about the same as she did yesterday. Very short of breath with any activity. Has conversational dyspnea. Going between her nasal O2 and her average volume assured pressure support device. She still has a very long way to go. Still wants to BE a full code. The patient's complaints include primarily shortness of breath with any activity. Minimal cough. Not producing any phlegm. In addition to severe end-stage COPD , she has a history of ongoing tobacco dependence with nicotine abuse, anorexia/ cachexia syndrome bipolar disorder hyperlipidemia and general medical debility. Objective - Vital Signs Vital signs: Vital Signs Temp 97.2 F L 12/25/17 08:00 Pulse 100 12/25/17 08:13 Resp 22 12/25/17 08:00 BP 184/102 12/25/17 08:00 Pulse Ox 92 L 12/25/17 08:00 Intake & Output 12/24/17 12/25/17 12/25/17 18:59 06:59 18:59 Intake Total 222 240 Output Total 1400 600 Balance -1178 -600 240 Weight 56.7 kg Intake: Oral 222 240 Output: Urine 1400 600 Other: Voiding Method Bedside Commode # Voids 1 - Exam The patient's currently on her average volume short pressure-support ventilator. Her mask is in place. She's quite tachypnea and dyspneic. She is alert. HEENT examination is grossly unremarkable. Mucous membranes are moist. No oral lesions. Neck supple. Full range of motion. No adenopathy thyromegaly or neck vein distention. Cardiovascular examination reveals regular rhythm rate. S1-S2 normal. No S3 or S4. No discernible murmur noted. She is tachycardic. Lungs revealed very severely diminished breath sounds. There is coarse inspiratory and expiratory rhonchi and wheezes. Breath sounds are severely diminished. There is prolongation. Breath sounds are equal bilaterally. Abdomen soft bowel sounds are heard. No masses or tenderness. Extremities are intact. No cyanosis clubbing or edema. Skin is without rash or lesion. Neurologic examination is brief but nonfocal. - Labs CBC & Chem 7: 12/25/17 05:48 12/25/17 05:48 Labs: Abnormal Lab Results - Last 24 Hours (Table) 12/24/17 12/24/17 12/24/17 Range/Units 11:20 16:08 20:52 WBC (3.8-10.6) k/uL RDW (11.5-15.5) % Plt Count (150-450) k/uL Neutrophils # (1.3-7.7) k/uL Sodium (137-145) mmol/L Carbon Dioxide (22-30) mmol/L BUN (7-17) mg/dL Creatinine (0.52-1.04) mg/dL Glucose (74-99) mg/dL POC Glucose (mg/dL) 125 H 243 H 102 H (75-99) mg/dL 12/25/17 12/25/17 12/25/17 Range/Units 05:48 05:48 06:27 WBC 11.8 H (3.8-10.6) k/uL RDW 15.7 H (11.5-15.5) % Plt Count 527 H (150-450) k/uL Neutrophils # 9.6 H (1.3-7.7) k/uL Sodium 146 H (137-145) mmol/L Carbon Dioxide 36 H (22-30) mmol/L BUN 29 H (7-17) mg/dL Creatinine 0.40 L (0.52-1.04) mg/dL Glucose 161 H (74-99) mg/dL POC Glucose (mg/dL) 156 H (75-99) mg/dL Microbiology - Last 24 Hours (Table) 12/21/17 10:34 Blood Culture - Preliminary Blood No Growth after 72 hours Assessment and Plan Assessment: Assessment Acute on chronic hypoxemic and hypercapnic respiratory failure and a patient with end-stage COPD. FEV1 is 27% of predicted. The patient's on home oxygen therapy and uses average volume assured pressure support typically at nighttime for ventilatory support. Hypercapnic respiratory failure Chronic low back pain Chronic and ongoing tobacco dependence Anorexia/cachexia syndrome Bipolar disorder Hyperlipidemia General medical debility History of cervical cancer Plan: Plan dated 12/23/2017 The patient seems to be feeling a bit better. White count 14.4 HEENT 13.8 hematocrit 44 and platelet count 472,000. Electrolytes look normal including sodium and potassium chloride and CO2. The BUN and creatinine 25 and 0.38. Blood cultures are thus far negative. Chest x-ray did not show anything acute. Medications are reviewed. Prognosis is poor. CODE STATUS needs to be addressed by the primary service. In the past, she has been a no code. Plan dated 12/25/2017 The patient is doing about the same today as she was yesterday. Still very short of breath with any activity. Goes between nasal O2 and her AVAPS MACHINE. She is a full code still. She does have a bit of a cough. Not producing much phlegm. No fever or chills. No chest pain. No nausea vomiting or diarrhea reported. Time with Patient: Less than 30
[2017-12-25 11:21] LABS: Glucose,Whole Blood 155 mg/dL (75-99)
[2017-12-25] MEDS: MULTIVITAMINS, THERA 1 EACH TAB PO SCH (11:44)
[2017-12-25] MEDS: SODIUM CHLORIDE 0.45% 1,000 ML IV SCH (11:46)
[2017-12-25] MEDS: BUTALB/APAP/CAFF 50-325-40MG TAB PO PRN ×2 (14:26→23:17)
[2017-12-25 16:23] LABS: Glucose,Whole Blood 191 mg/dL (75-99)
--- NOTE | 2017-12-25 17:33 | P.PN ---
Subjective Progress Note Date: 12/24/17 Principal diagnosis: Acute exacerbation COPD Possible Right femoral osteochondroma Compression fracture deformities at T8 and T9 Dehydration This is a very pleasant 47-year-old female patient who follows with Dr. John as her primary care physician. She has a history of gastroesophageal reflux disease, a arthritis, hyperlipidemia, chronic pain syndrome, cervical and lumbar spine spondylosis cysts, chronic migraines, peptic ulcer disease, depression, cervical cancer, anorexia/cachexia malnourishment a significant total body protein mass loss. She has has a history of severe oxygen dependent end-stage chronic obstructive pulmonary disease. She utilizes oxygen at 5 L/m per nasal cannula at home. She also utilizes an average volume assured pressure support (AVAPS) device. She has chronic and ongoing tobacco dependence. She follows with Dr. Molina in our office. She her last FEV1 value is 27% of predicted. The patient also has history of MRSA pneumonia and strep pneumonias. She has had multiple admissions for COPD exacerbations most recently 11/02/2017. He is admitted here yesterday morning after having worsening shortness of breath, dry nonproductive cough. She states she did have a fever at home. She's had significant chest tightness and wheezing. Despite increased use of her nebulized treatments without much improvement. Her chest x-ray reveals coarsened interstitium consistent with bronchitis or interstitial pneumonitis. She has her home a VATS device in place. Otherwise she requires 10 L high flow nasal cannula to maintain O2 saturations in the 90s. She's been tachycardic. Tachypneic. Currently afebrile. The culture reveals no growth to date. White count 14.3. Hemoglobin 12.4. Creatinine 0.36. 12/23/2017; Patient is seen and evaluated at bedside; continues to have marked shortness of breath even on rest; speaks in very short sentences; does relate she feels slightly better compared to yesterday; patient is resumed on treatment with bronchodilators, steroids and antibiotics; CODE STATUS was discussed with patient in great detail; patient relates that she always has expressed a strong wish to remain DO NOT RESUSCITATE; patient relates that a change in CODE STATUS and records might be initiated last son; patient states that she is tired of dealing with respiratory problems and wouldn't want CODE STATUS to be changed to DO NOT RESUSCITATE 12/24/2017 Patient seen and evaluated in the room; continues to be dyspneic with minimal conversation; patient relates that she has discussed her CODE STATUS with family members and she wants to change her CODE STATUS to full code; patient uses a VATS device throughout the evening and night; patient continues to require 10 L of high flow oxygen through nasal cannula keeping O2 saturation and 90s Objective - Vital Signs Vital signs: Vital Signs Temp 98.2 F 12/24/17 15:23 Pulse 122 H 12/24/17 17:09 Resp 24 12/24/17 15:27 BP 160/92 12/24/17 15:23 Pulse Ox 93 L 12/24/17 15:23 Intake & Output 12/23/17 12/24/17 12/24/17 18:59 06:59 18:59 Intake Total 1696 222 Output Total 1500 1500 1400 Balance 196 -1500 -1178 Weight 59.5 kg 58.8 kg Intake: IV 900 Sodium Chloride 0.9% 1, 900 000 ml @ 75 mls/hr IV . [id number] Rx#:[id number] Oral 796 222 Output: Urine 1500 1500 1400 Other: Voiding Method Bedside Commode Bedside Commode # Voids 4 0 - Exam - Constitutional General appearance: Present: average body habitus, cooperative, in mild respiratory distress - EENT Eyes: Present: anicteric sclerae, EOMI, PERRLA, normal appearance ENT: Present: hearing grossly normal, normal oropharynx Ears: bilateral: normal - Neck Neck: Present: normal ROM. Absent: lymphadenopathy, rigidity, thyromegaly Carotids: negative: bruit present Thyroid: bilateral: normal size, negative: enlarged, nodule - Respiratory Respiratory: bilateral: Markedly decreased breath sounds bilaterally; patient does use accessory muscles; talks in short sentences - Cardiovascular Rhythm: regular Heart sounds: normal: S1, S2 Abnormal Heart Sounds: Absent: systolic murmur, diastolic murmur - Gastrointestinal General gastrointestinal: Present: normal bowel sounds, soft. Absent: distended , organomegaly, tenderness - Genitourinary Genitourinary Comment(s): deferred - Integumentary Integumentary: Present: normal turgor. Absent: jaundiced, rash, ulcer - Neurologic Neurologic: Present: CNII-XII intact. Absent: focal deficits - Musculoskeletal Musculoskeletal: Present: gait normal, strength equal bilaterally - Psychiatric Psychiatric: Present: A&O x's 3, appropriate affect, intact judgment & insight - Labs CBC & Chem 7: 12/25/17 05:48 12/25/17 05:48 Labs: Abnormal Lab Results - Last 24 Hours (Table) 12/23/17 12/24/17 12/24/17 Range/Units 20:57 05:56 06:29 WBC 14.4 H (3.8-10.6) k/uL RDW 15.9 H (11.5-15.5) % Plt Count 504 H (150-450) k/uL Neutrophils # 12.0 H (1.3-7.7) k/uL Sodium (137-145) mmol/L Carbon Dioxide (22-30) mmol/L BUN (7-17) mg/dL Creatinine (0.52-1.04) mg/dL Glucose (74-99) mg/dL POC Glucose (mg/dL) 146 H 148 H (75-99) mg/dL 12/24/17 12/24/17 12/24/17 Range/Units 06:29 11:20 16:08 WBC (3.8-10.6) k/uL RDW (11.5-15.5) % Plt Count (150-450) k/uL Neutrophils # (1.3-7.7) k/uL Sodium 147 H (137-145) mmol/L Carbon Dioxide 32 H (22-30) mmol/L BUN 32 H (7-17) mg/dL Creatinine 0.43 L (0.52-1.04) mg/dL Glucose 140 H (74-99) mg/dL POC Glucose (mg/dL) 125 H 243 H (75-99) mg/dL Microbiology - Last 24 Hours (Table) 12/21/17 10:34 Blood Culture - Preliminary Blood No Growth after 72 hours Assessment and Plan Assessment: 1. Acute on chronic hypoxemic and hypercapnic respiratory failure/end-stage COPD. FEV1 is 27% of predicted. The patient's on home oxygen therapy 5 L and uses AVAPS typically at nighttime for ventilatory support. - Patient continues to require high flow oxygen at 10 L - Pulmonary's recommending to continue DuoNeb treatments 4 times a day and when necessary - Continue with IV Solu-Medrol, Pulmicort and perforomist 2. Nontraumatic compression fracture off T8 and T9 -Orthopedic service is following and recommending repeat x-rays of thoracic spine - Patient is also given prescription for spinomed TLSO brace - Or 3 recommending for brace to be worn while sitting upright at greater than 45 during ambulation and during activities 3. Osteochondroma of right humerus - Or still plans to order an MRI of the right humerus without contrast along with complete x-ray series of right humerus for further evaluation possible right humerus osteochondroma 4. Acute exacerbation of COPD - Patient remains on bronchodilator nebulizer treatments along with steroids and antibiotics - Pulmonary is following and recommending to continue current treatment - Patient has been no code previously; pulmonary recommending to continue with no CODE STATUS due to grave prognosis of patient 5. Dehydration - Clinically resolved; we will continue to monitor SURAJ's renal function and electrolytes closely 6. Chronic and ongoing tobacco dependence; counseling done in great detail; patient understands 7. Anorexia/cachexia syndrome; - we will recommend dietary supplement with high energy shakes - We will continue to encourage patient to have small meals after short intervals 8. Hyperlipidemia; stable on home medication 9. General medical debility; we recommend PT/OT evaluation and treatment once stable 10. DVT/GI prophylaxis CODE STATUS; DO NOT RESUSCITATE Time with Patient: Greater than 30
--- NOTE | 2017-12-25 17:36 | P.PN ---
Subjective Progress Note Date: 12/25/17 Principal diagnosis: Acute exacerbation COPD Possible Right femoral osteochondroma Compression fracture deformities at T8 and T9 Dehydration This is a very pleasant 47-year-old female patient who follows with Dr. John as her primary care physician. She has a history of gastroesophageal reflux disease, a arthritis, hyperlipidemia, chronic pain syndrome, cervical and lumbar spine spondylosis cysts, chronic migraines, peptic ulcer disease, depression, cervical cancer, anorexia/cachexia malnourishment a significant total body protein mass loss. She has has a history of severe oxygen dependent end-stage chronic obstructive pulmonary disease. She utilizes oxygen at 5 L/m per nasal cannula at home. She also utilizes an average volume assured pressure support (AVAPS) device. She has chronic and ongoing tobacco dependence. She follows with Dr. Molina in our office. She her last FEV1 value is 27% of predicted. The patient also has history of MRSA pneumonia and strep pneumonias. She has had multiple admissions for COPD exacerbations most recently 11/02/2017. He is admitted here yesterday morning after having worsening shortness of breath, dry nonproductive cough. She states she did have a fever at home. She's had significant chest tightness and wheezing. Despite increased use of her nebulized treatments without much improvement. Her chest x-ray reveals coarsened interstitium consistent with bronchitis or interstitial pneumonitis. She has her home a VATS device in place. Otherwise she requires 10 L high flow nasal cannula to maintain O2 saturations in the 90s. She's been tachycardic. Tachypneic. Currently afebrile. The culture reveals no growth to date. White count 14.3. Hemoglobin 12.4. Creatinine 0.36. 12/23/2017; Patient is seen and evaluated at bedside; continues to have marked shortness of breath even on rest; speaks in very short sentences; does relate she feels slightly better compared to yesterday; patient is resumed on treatment with bronchodilators, steroids and antibiotics; CODE STATUS was discussed with patient in great detail; patient relates that she always has expressed a strong wish to remain DO NOT RESUSCITATE; patient relates that a change in CODE STATUS and records might be initiated last son; patient states that she is tired of dealing with respiratory problems and wouldn't want CODE STATUS to be changed to DO NOT RESUSCITATE 12/24/2017 Patient seen and evaluated in the room; continues to be dyspneic with minimal conversation; patient relates that she has discussed her CODE STATUS with family members and she wants to change her CODE STATUS to full code; patient uses a VATS device throughout the evening and night; patient continues to require 10 L of high flow oxygen through nasal cannula keeping O2 saturation and 90s 12/25/2017 Patient continues to be extremely short of breath; toxin short sentences due to dyspnea; patient continues to want to be full code by her and family request; complains of minimal dry cough. Objective - Vital Signs Vital signs: Vital Signs Temp 97.8 F 12/25/17 15:34 Pulse 98 12/25/17 15:58 Resp 16 12/25/17 15:58 BP 143/80 12/25/17 15:34 Pulse Ox 96 12/25/17 15:34 Intake & Output 12/24/17 12/25/17 12/25/17 18:59 06:59 18:59 Intake Total 222 462 Output Total 7246 753 1049 Balance -1178 -600 -538 Weight 56.7 kg Intake: Oral 222 462 Output: Urine 2628 097 3392 Other: Voiding Method Bedside Commode # Voids 1 - Exam - Constitutional General appearance: Present: average body habitus, cooperative, in mild respiratory distress - EENT Eyes: Present: anicteric sclerae, EOMI, PERRLA, normal appearance ENT: Present: hearing grossly normal, normal oropharynx Ears: bilateral: normal - Neck Neck: Present: normal ROM. Absent: lymphadenopathy, rigidity, thyromegaly Carotids: negative: bruit present Thyroid: bilateral: normal size, negative: enlarged, nodule - Respiratory Respiratory: bilateral: Markedly decreased breath sounds bilaterally; patient does use accessory muscles; talks in short sentences - Cardiovascular Rhythm: regular Heart sounds: normal: S1, S2 Abnormal Heart Sounds: Absent: systolic murmur, diastolic murmur - Gastrointestinal General gastrointestinal: Present: normal bowel sounds, soft. Absent: distended , organomegaly, tenderness - Genitourinary Genitourinary Comment(s): deferred - Integumentary Integumentary: Present: normal turgor. Absent: jaundiced, rash, ulcer - Neurologic Neurologic: Present: CNII-XII intact. Absent: focal deficits - Musculoskeletal Musculoskeletal: Present: gait normal, strength equal bilaterally - Psychiatric Psychiatric: Present: A&O x's 3, appropriate affect, intact judgment & insight - Labs CBC & Chem 7: 12/25/17 05:48 12/25/17 05:48 Labs: Abnormal Lab Results - Last 24 Hours (Table) 12/24/17 12/25/17 12/25/17 Range/Units 20:52 05:48 05:48 WBC 11.8 H (3.8-10.6) k/uL RDW 15.7 H (11.5-15.5) % Plt Count 527 H (150-450) k/uL Neutrophils # 9.6 H (1.3-7.7) k/uL Sodium 146 H (137-145) mmol/L Carbon Dioxide 36 H (22-30) mmol/L BUN 29 H (7-17) mg/dL Creatinine 0.40 L (0.52-1.04) mg/dL Glucose 161 H (74-99) mg/dL POC Glucose (mg/dL) 102 H (75-99) mg/dL 12/25/17 12/25/17 12/25/17 Range/Units 06:27 11:19 16:16 WBC (3.8-10.6) k/uL RDW (11.5-15.5) % Plt Count (150-450) k/uL Neutrophils # (1.3-7.7) k/uL Sodium (137-145) mmol/L Carbon Dioxide (22-30) mmol/L BUN (7-17) mg/dL Creatinine (0.52-1.04) mg/dL Glucose (74-99) mg/dL POC Glucose (mg/dL) 156 H 155 H 191 H (75-99) mg/dL Microbiology - Last 24 Hours (Table) 12/21/17 10:34 Blood Culture - Preliminary Blood No Growth after 96 hours Assessment and Plan Assessment: 1. Acute on chronic hypoxemic and hypercapnic respiratory failure/end-stage COPD. FEV1 is 27% of predicted. The patient's on home oxygen therapy 5 L and uses AVAPS typically at nighttime for ventilatory support. - Patient continues to require high flow oxygen at 10 L - Pulmonary's recommending to continue DuoNeb treatments 4 times a day and when necessary - Continue with IV Solu-Medrol, Pulmicort and perforomist - 2. Nontraumatic compression fracture off T8 and T9 -Orthopedic service is following and recommending repeat x-rays of thoracic spine - Patient is also given prescription for spinomed TLSO brace - Or 3 recommending for brace to be worn while sitting upright at greater than 45 during ambulation and during activities 3. Osteochondroma of right humerus - Or still plans to order an MRI of the right humerus without contrast along with complete x-ray series of right humerus for further evaluation possible right humerus osteochondroma 4. Acute exacerbation of COPD - Patient remains on bronchodilator nebulizer treatments along with steroids and antibiotics - Pulmonary is following and recommending to continue current treatment - Patient has been no code previously; pulmonary recommending to continue with no CODE STATUS due to grave prognosis of patient 5. Dehydration - Clinically resolved; we will continue to monitor SURAJ's renal function and electrolytes closely 6. Chronic and ongoing tobacco dependence; counseling done in great detail; patient understands 7. Anorexia/cachexia syndrome; - we will recommend dietary supplement with high energy shakes - We will continue to encourage patient to have small meals after short intervals 8. Hyperlipidemia; stable on home medication 9. General medical debility; we recommend PT/OT evaluation and treatment once stable 10. DVT/GI prophylaxis CODE STATUS; DO NOT RESUSCITATE Time with Patient: Greater than 30
[2017-12-25] MEDS: ASPIRIN 325 MG TAB PO SCH (19:47)
[2017-12-25] MEDS: buPROPion XL 150 MG TAB.ER.24H PO SCH (19:48)
[2017-12-25] MEDS: risperiDONE 1 MG TAB PO SCH (19:48)
[2017-12-25] MEDS: traZODone HCL 100 MG TAB PO SCH (19:48)
[2017-12-25 21:16] LABS: Glucose,Whole Blood 154 mg/dL (75-99)
[2017-12-26] MEDS: ALPRAZolam 0.25 MG TAB PO PRN ×2 (04:50→13:45)
[2017-12-26] MEDS: HYDROcodone/APAP 7.5-325MG 1 EACH TAB PO PRN ×4 (04:50→23:58)
[2017-12-26] MEDS: IPRATROPIUM-ALBUTEROL 3 ML NEB INHALATION PRN ×2 (05:42→13:46)
[2017-12-26] MEDS: methylPREDNISolone SOD SUCCI 125 MG/2 ML VIAL IV SCH ×4 (06:02→23:59)
[2017-12-26] MEDS: CALCIUM CARB-VIT D 500MG-200UN 1 EACH TAB PO SCH ×2 (06:03→17:10)
[2017-12-26] MEDS: PANTOPRAZOLE 40 MG TABLET PO SCH (06:03)
[2017-12-26 06:17] LABS: Glucose,Whole Blood 124 mg/dL (75-99)
[2017-12-26] MEDS: INSULIN ASPART 100 UNIT/ML 1 ML 10 ML VIAL SQ SCH ×4 (06:18→20:58)
[2017-12-26] MEDS: BUDESONIDE 1 MG/2 ML NEBU INHALATION SCH ×2 (07:28→19:05)
[2017-12-26] MEDS: IPRATROPIUM-ALBUTEROL 3 ML NEB INHALATION SCH ×4 (07:28→19:05)
[2017-12-26] MEDS: FORMOTEROL FUMARATE 20 MCG/2 ML NEBU INHALATION SCH ×2 (07:28→19:05)
[2017-12-26] MEDS: THEOPHYLLINE 24 HOUR 200 MG CAP.ER.24H PO SCH ×2 (09:43→20:01)
[2017-12-26] MEDS: amLODIPine 10 MG TAB PO SCH (09:44)
[2017-12-26] MEDS: PREGABALIN 75 MG CAP PO SCH ×2 (09:44→20:01)
[2017-12-26] MEDS: VERAPAMIL SR 120 MG TABLET.ER PO SCH (09:44)
[2017-12-26] MEDS: SODIUM CHLORIDE 0.45% 1,000 ML IV SCH ×2 (09:44→12:49)
[2017-12-26] MEDS: AZITHROMYCIN 500 MG TAB PO SCH (09:44)
[2017-12-26] MEDS: hydrALAZINE HCL 25 MG TAB PO PRN ×2 (09:44→20:01)
[2017-12-26] MEDS: FLUTICASONE 50MCG/SPRAY NASAL 16GM EA NOSTRIL SCH (09:45)
[2017-12-26 11:56] LABS: Glucose,Whole Blood 125 mg/dL (75-99)
[2017-12-26] MEDS: MULTIVITAMINS, THERA 1 EACH TAB PO SCH (12:04)
--- NOTE | 2017-12-26 15:56 | P.PN ---
Subjective Patient is seen and examined by me at bedside Known new complaints No CP/SOB, no change in urine or bowel habits, no fever Objective - Vital Signs Vital signs: Vital Signs Temp 98.8 F 12/26/17 12:00 Pulse 89 12/26/17 13:57 Resp 22 12/26/17 12:00 BP 162/92 12/26/17 12:00 Pulse Ox 93 L 12/26/17 12:00 Intake & Output 12/25/17 12/26/17 12/26/17 18:59 06:59 18:59 Intake Total 684 862 Output Total 1000 Balance -316 862 Weight 55.9 kg Intake: Intake, IV Titration 400 Amount Sodium Chloride 0.45% 1, 400 000 ml @ 20 mls/hr IV . Q[facility]H [facility] Rx#:[id number] Oral 684 462 Output: Urine 1000 Other: Voiding Method Bedside Commode # Voids 1 - Exam Constitutional: No acute distress, conversant, pleasant Eyes: Anicteric sclerae, moist conjunctiva, no lid-lag PERRLA ENMT: NC/AT Oropharynx clear, no erythema, exudates Neck: Supple, FROM, no masses, or JVD No carotid bruits No thyromegaly Lungs: Clear to auscultation, scattered wheezing Clear to percussion Normal respiratory effort, no accessory muscle use Cardiovascular: Heart regular in rate and rhythm, No murmurs, gallops, or rubs No peripheral edema Abdominal: Soft Nontender, no guarding, rebound or rigidity Abdomen moving with respiration Normoactive bowel sounds No hepatomegaly, No splenomegaly No palpable mass No abdominal wall hernia noted Skin: Normal temperature, tone, texture, turgor No induration No subcutaneous nodules No rash, lesions No ulcers Extremities: No digital cyanosis No clubbing Pedal pulses intact and symmetrical Radial pulses intact and symmetrical Normal gait and station No calf tenderness Psychiatric: Alert and oriented to person, place and time Appropriate affect Intact judgement Neuro: Muscles Strength 5/5 in all 4 extremities Sensation to light touch grossly present throughout Cranial nerves II-XII grossly intact No focal sensory deficits - Labs CBC & Chem 7: 12/25/17 05:48 12/25/17 05:48 Labs: Abnormal Lab Results - Last 24 Hours (Table) 12/25/17 12/25/17 12/26/17 Range/Units 16:16 21:14 06:16 POC Glucose (mg/dL) 191 H 154 H 124 H (75-99) mg/dL 12/26/17 Range/Units 11:50 POC Glucose (mg/dL) 125 H (75-99) mg/dL Microbiology - Last 24 Hours (Table) 12/21/17 10:34 Blood Culture - Preliminary Blood No Growth after 120 hours Assessment and Plan Assessment: COPD Right humerus bone extension Dehydration Plan: There was admitted the patient for inpatient, continue with IV hydration, antibiotics, breathing treatments, steroids Patient breathing is more tired today, called corporate events director Dr. Molina, pt is end stage COPD Follow-up her vitals and labs Continue with BiPAP, owned by the pt Also call orthopedic floor her right humeral lesion, s/p MRI of the humerus: pending Patient was informed about her bone lesions, risk of cancer explained for the patient start on lidocaine prognosis is guarded D/W staff
--- NOTE | 2017-12-26 16:06 | P.PN ---
Subjective Progress Note Date: 12/26/17 Principal diagnosis: Acute COPD exacerbation Progress note dated 12/23/2017 47-year-old female who looks 87, was history of severe end-stage COPD. Her FEV1 is 27% of predicted. She is oxygen dependent. Was admitted with a diagnosis of COPD exacerbation. Hasn't had many admissions to this hospital on the past. Has history of acute on chronic hypercapnic and hypoxemic respiratory failure requiring average volume assured pressure support. The patient also has chronic back pain chronic and ongoing tobacco dependence severe anorexia cachexia syndrome bipolar disorder hyperlipidemia and general medical debility. She feels a bit better today than she did yesterday. She is being treated with standard medications including her breathing treatments bronchodilators steroids antibiotics, etc. Her overall prognosis is very poor though. Her CODE STATUS really does need to be addressed. It would be a disaster, if she ended up on life support. Progress note dated 12/25/2017 The patient is seen again on December 25. Doing about the same as she did yesterday. Very short of breath with any activity. Has conversational dyspnea. Going between her nasal O2 and her average volume assured pressure support device. She still has a very long way to go. Still wants to BE a full code. The patient's complaints include primarily shortness of breath with any activity. Minimal cough. Not producing any phlegm. In addition to severe end-stage COPD , she has a history of ongoing tobacco dependence with nicotine abuse, anorexia/ cachexia syndrome bipolar disorder hyperlipidemia and general medical debility. On 12/26/2017 patient seen in follow-up on selective care unit. She is resting in bed, in no acute distress, she is currently on 10 L per nasal cannula, O2 sat 93%. Afebrile, vital signs are stable. She states her breathing is improving. She is wearing her trilogy ventilator intermittently. Her appetite is fair. She is being initiated acute COPD exacerbation with a combination of empiric antibiotics Zithromax, IV steroids, nebulized bronchodilators, theophylline, and the patient is continuously improving. Patient states she quit smoking. Her coughing is minimal, with scattered inspiratory and expiratory rhonchi and wheezes. Objective - Vital Signs Vital signs: Vital Signs Temp 98.8 F 12/26/17 12:00 Pulse 90 12/26/17 15:57 Resp 22 12/26/17 12:00 BP 162/92 12/26/17 12:00 Pulse Ox 93 L 12/26/17 12:00 Intake & Output 12/25/17 12/26/17 12/26/17 18:59 06:59 18:59 Intake Total 684 862 Output Total 1000 Balance -316 862 Weight 55.9 kg Intake: Intake, IV Titration 400 Amount Sodium Chloride 0.45% 1, 400 000 ml @ 20 mls/hr IV . Q24H [facility] Rx#:[id number] Oral [id number] 462 Output: Urine 1000 Other: Voiding Method Bedside Commode # Voids 1 - Exam he patient's currently on her average volume short pressure-support ventilator. Her mask is in place. She's quite tachypnea and dyspneic. She is alert. HEENT examination is grossly unremarkable. Mucous membranes are moist. No oral lesions. Neck supple. Full range of motion. No adenopathy thyromegaly or neck vein distention. Cardiovascular examination reveals regular rhythm rate. S1-S2 normal. No S3 or S4. No discernible murmur noted. She is tachycardic. Lungs revealed very severely diminished breath sounds. There is coarse inspiratory and expiratory rhonchi and wheezes. Breath sounds are severely diminished. There is prolongation. Breath sounds are equal bilaterally. Abdomen soft bowel sounds are heard. No masses or tenderness. Extremities are intact. No cyanosis clubbing or edema. Skin is without rash or lesion. Neurologic examination is brief but nonfocal. - Labs CBC & Chem 7: 12/25/17 05:48 12/25/17 05:48 Labs: Abnormal Lab Results - Last 24 Hours (Table) 12/25/17 12/25/17 12/26/17 Range/Units 16:16 21:14 06:16 POC Glucose (mg/dL) 191 H 154 H 124 H (75-99) mg/dL 12/26/17 Range/Units 11:50 POC Glucose (mg/dL) 125 H (75-99) mg/dL Microbiology - Last 24 Hours (Table) 12/21/17 10:34 Blood Culture - Preliminary Blood No Growth after 120 hours Assessment and Plan Plan: Assessment: Acute on chronic hypoxemic and hypercapnic respiratory failure and a patient with end-stage COPD. FEV1 is 27% of predicted. The patient's on home oxygen therapy and uses average volume assured pressure support typically at nighttime for ventilatory support. Hypercapnic respiratory failure Chronic low back pain Chronic and ongoing tobacco dependence Anorexia/cachexia syndrome Bipolar disorder Hyperlipidemia General medical debility History of cervical cancer Plan: Patient is improving, vital signs are stable, patient is tolerating high flow nasal cannula, and intermittently she is wearing the trilogy ventilator as needed. Continue current medical treatment, continue same dose Solu-Medrol, empiric antibiotics in nebulized bronchodilators. Increase activity as tolerated. I performed a history & physical examination of the patient and discussed their management with my nurse practitioner, Elida Agarwal. I reviewed the nurse practitioner's note and agree with the documented findings and plan of care. Lung sounds are diminished, with scattered rhonchi and wheezes. The findings and the impression was discussed with the patient. I attest to the documentation by the nurse practitioner. Time with Patient: Less than 30
[2017-12-26 16:37] LABS: Glucose,Whole Blood 142 mg/dL (75-99)
[2017-12-26] MEDS: LIDOCAINE 5% PATCH TOPICAL SCH (17:08)
--- NOTE | 2017-12-26 17:20 | MR ---
History abnormal calcification on chest x-ray of the right humerus. Comparison none. Technique after multiplanar multiecho imaging of the right humerus was performed with and without IV contrast. The contrast was gadolinium 7.5 mL. FINDINGS: There is a 2 x 1 cm elongated area of low signal on the T1 images along the lateral aspect of the mid shaft of the humerus. There is a central area of increased signal that could be some fatty marrow. I see no soft tissue mass component. The wall thickness is 4 mm. The underlying cortex of th e shaft of the humerus appears intact. There is no evidence of a medullary lesion in the humerus. The contrast images show no pathologic enhancement. The adjacent muscle structures appear intact. There is no soft tissue edema. CONCLUSION: Nonenhancing lesion that is predominantly compact bone on the lateral aspect mid shaft of the humerus . This has benign features and I would consider osteochondroma as well as a focus of myositis ossific ans.
[2017-12-26] MEDS: BUTALB/APAP/CAFF 50-325-40MG TAB PO PRN (19:43)
[2017-12-26] MEDS: risperiDONE 1 MG TAB PO SCH (20:01)
[2017-12-26] MEDS: traZODone HCL 100 MG TAB PO SCH (20:01)
[2017-12-26] MEDS: buPROPion XL 150 MG TAB.ER.24H PO SCH (20:01)
[2017-12-26] MEDS: ASPIRIN 325 MG TAB PO SCH (20:02)
[2017-12-26 20:48] LABS: Glucose,Whole Blood 165 mg/dL (75-99)
[2017-12-27] MEDS: IPRATROPIUM-ALBUTEROL 3 ML NEB INHALATION PRN ×2 (04:52→13:38)
[2017-12-27] MEDS: CALCIUM CARB-VIT D 500MG-200UN 1 EACH TAB PO SCH ×2 (06:45→17:24)
[2017-12-27] MEDS: PANTOPRAZOLE 40 MG TABLET PO SCH (06:45)
[2017-12-27] MEDS: methylPREDNISolone SOD SUCCI 125 MG/2 ML VIAL IV SCH ×3 (06:45→17:24)
[2017-12-27] MEDS: INSULIN ASPART 100 UNIT/ML 1 ML 10 ML VIAL SQ SCH ×4 (06:45→21:21)
[2017-12-27] MEDS: HYDROcodone/APAP 7.5-325MG 1 EACH TAB PO PRN ×2 (06:46→12:27)
[2017-12-27] MEDS: BUDESONIDE 1 MG/2 ML NEBU INHALATION SCH ×2 (07:46→19:25)
[2017-12-27] MEDS: IPRATROPIUM-ALBUTEROL 3 ML NEB INHALATION SCH ×4 (07:48→19:25)
[2017-12-27] MEDS: FORMOTEROL FUMARATE 20 MCG/2 ML NEBU INHALATION SCH ×2 (07:48→19:25)
[2017-12-27] MEDS: THEOPHYLLINE 24 HOUR 200 MG CAP.ER.24H PO SCH ×2 (08:54→20:40)
[2017-12-27] MEDS: AZITHROMYCIN 500 MG TAB PO SCH (08:55)
[2017-12-27] MEDS: amLODIPine 10 MG TAB PO SCH (08:55)
[2017-12-27] MEDS: VERAPAMIL SR 180 MG TABLET.ER PO SCH (08:55)
[2017-12-27] MEDS: FLUTICASONE 50MCG/SPRAY NASAL 16GM EA NOSTRIL SCH (08:56)
[2017-12-27] MEDS: LIDOCAINE 5% PATCH TOPICAL SCH (08:56)
[2017-12-27] MEDS: PREGABALIN 75 MG CAP PO SCH ×2 (09:22→20:39)
[2017-12-27 09:57] VITALS: BMI 21.1
[2017-12-27 12:14] LABS: Glucose,Whole Blood 141 mg/dL (75-99)
[2017-12-27] MEDS: SODIUM CHLORIDE 0.45% 1,000 ML IV SCH (12:26)
[2017-12-27] MEDS: MULTIVITAMINS, THERA 1 EACH TAB PO SCH (12:29)
[2017-12-27] MEDS: ALPRAZolam 0.25 MG TAB PO PRN ×2 (12:34→21:20)
--- NOTE | 2017-12-27 12:42 | P.PN ---
Subjective Progress Note Date: 12/27/17 Principal diagnosis: Acute on chronic hypoxic and hypercapnic respiratory failure This is a very pleasant 47-year-old female patient who follows with Dr. John as her primary care physician. She has a history of gastroesophageal reflux disease, a arthritis, hyperlipidemia, chronic pain syndrome, cervical and lumbar spine spondylosis cysts, chronic migraines, peptic ulcer disease, depression, cervical cancer, anorexia/cachexia malnourishment a significant total body protein mass loss. She has has a history of severe oxygen dependent end-stage chronic obstructive pulmonary disease. She utilizes oxygen at 5 L/m per nasal cannula at home. She also utilizes an average volume assured pressure support (AVAPS) device. She has chronic and ongoing tobacco dependence. She follows with Dr. Molina in our office. She her last FEV1 value is 27% of predicted. The patient also has history of MRSA pneumonia and strep pneumonias. She has had multiple admissions for COPD exacerbations most recently 11/02/2017. He is admitted here yesterday morning after having worsening shortness of breath, dry nonproductive cough. She states she did have a fever at home. She's had significant chest tightness and wheezing. Despite increased use of her nebulized treatments without much improvement. Her chest x-ray reveals coarsened interstitium consistent with bronchitis or interstitial pneumonitis. She has her home a VATS device in place. Otherwise she requires 10 L high flow nasal cannula to maintain O2 saturations in the 90s. She's been tachycardic. Tachypneic. Currently afebrile. The culture reveals no growth to date. White count 14.3. Hemoglobin 12.4. Creatinine 0.36. Patient is seen again today 12/27/2017 in follow-up on the selective care unit. She is awake and alert in no acute distress. She has been quite slow to progress. She is still dyspneic on conversation. She is spending most of her time on the AVAPS machine. When she still requires 10 L high flow nasal cannula. She is usually on 5 L at home. She has a dry nonproductive cough. The blood cultures reveal no growth to date. She has continued and ongoing complaints of back pain and is requesting an increase of her [place] which is already at 7.5 mg tablet every 6 hours. Objective - Vital Signs Vital signs: Vital Signs Temp 98.2 F 12/27/17 11:41 Pulse 114 H 05/08/18 11:41 Resp 24 12/27/17 11:41 BP 174/92 12/27/17 11:41 Pulse Ox 94 L 12/27/17 11:41 Intake & Output 12/26/17 12/27/17 12/27/17 18:59 06:59 18:59 Intake Total 1102 210 350 Output Total 200 1000 Balance 1102 10 -650 Weight 55.9 kg 55.9 kg Intake: Intake, IV Titration 400 160 Amount Sodium Chloride 0.45% 1, 400 160 000 ml @ 20 mls/hr IV . Q24H [facility] Rx#:[id number] Oral 702 50 350 Output: Urine 200 1000 Other: Voiding Method Bedside Commode Bedside Commode # Voids 1 # Bowel Movements 1 - Exam GENERAL EXAM: Frail, cachectic, mild respiratory distress. Alert and oriented 3. EYES: Normal reaction of pupils, equal size. NOSE: Clear with pink turbinates. THROAT: No erythema or exudates. NECK: No masses, no JVD. CHEST: No abnormalities LUNGS: Equal air entry with bilateral end expiratory wheeze. Diminished throughout.. CVS: S1 and S2 normal with no audible murmur, regular rhythm. Tachycardiac. ABDOMEN: No hepatosplenomegaly, normal bowel sounds, no guarding or rigidity. SPINE: Full scoliosis SKIN: No rashes CENTRAL NERVOUS SYSTEM: No focal deficits, tone is normal in all 4 extremities. EXTREMITIES: There is no peripheral edema. No clubbing, no cyanosis. Peripheral pulses are intact. - Labs CBC & Chem 7: 12/25/17 05:48 12/25/17 05:48 Labs: Abnormal Lab Results - Last 24 Hours (Table) 12/26/17 12/26/17 12/27/17 Range/Units 16:35 20:47 11:47 POC Glucose (mg/dL) 142 H 165 H 141 H (75-99) mg/dL Microbiology - Last 24 Hours (Table) 12/21/17 10:34 Blood Culture - Preliminary Blood No Growth after 120 hours Assessment and Plan Assessment: Impression: #1 Acute on chronic hypoxic respiratory failure secondary to severe oxygen dependent end-stage chronic obstructive pulmonary disease. Gold stage IV with an FEV1 value 27% of predicted. On home oxygen at 5 L/m. #2 Acute on chronic severe hypercapnic respiratory failure requiring an average volume assured pressure support (AVAPS) device in the outpatient setting #3 Acute on Chronic thoracic spine pain. #4 Chronic and ongoing tobacco dependence. #5 Anorexia/cachexia syndrome with protein calorie malnutrition. #6 Bipolar disorder. #7 Hyperlipidemia. #8 Poor overall functional performance based on the above-mentioned multiple comorbidities. Plan: The patient was seen and evaluated by Dr. Molina. We'll continue her treatment for acute exacerbation of her COPD and hypercapnic respiratory failure. Continue DuoNeb inhalations 4 times a day and when necessary, IV Solu- Medrol, Pulmicort and Perforomist. Continue with AVAPS device as needed alternating with high flow nasal cannula. We will go ahead and increase her narcotic 10 mg 1 tablet to 6 hours as needed. She is educated regarding the importance of cautious use of narcotics due to her severe end-stage COPD. We' ll increase her activity as tolerated. We'll continue to follow and make further recommendations based on her clinical status. I, the cosigning physician, performed a history & physical examination of the patient. Lungs sounds have bilateral wheezing. Diminished throughout. Maintaining good O2 saturations in the 90s on 10 L high flow nasal cannula/ AVAPS. I discussed the assessment and plan of care with my nurse practitioner, Michaela Ribera. I attest to the above note as dictated by her.
--- NOTE | 2017-12-27 12:55 | P.PN ---
Progress Note - Text Progress Note Date: 12/27/17 Patient is a very pleasant 47-year-old female with severe chronic oxygen dependent end-stage COPD who is seen and examined at the bedside or follow-up evaluation in regards to her thoracic spine and right humerus. She has not had significant change in regards to her thoracic spine or right humerus since being seen and examined Tuesday. She is known to utilize 5 L nasal cannula at home. She has been admitted to the hospital multiple times for exacerbation of COPD, most recently 11/02/2017. She presented to the emergency department on after worsening shortness of breath. Chest x-ray was taken at the time of her readmittance which showed concern for right humeral osteochondroma. Patient is also known to have compression fracture deformities at T8 and T9 diagnosed at her previous admission in October 2017. X-rays of the right humerus and thoracic spine were taken previously and have been reviewed. An MRI of the right humerus was performed yesterday and has also been reviewed. Patient has also been fitted with a Spinomed TLSO brace and is currently wearing this brace while sitting upright in bed. She continues to have ongoing thoracic back pain without significant changes compared to Tuesday. She denies any lower extremity weakness and radiculopathy bilaterally. She states she continues to have some numbness at the right medial elbow denies but any other pain of the right upper extremity. She does have some bruising most specifically over the right forearm and hand along with some petechial-appearing spots on the right upper extremity. She does not have any of these spots on the left upper extremity. She denies specific pain with the right upper extremity. Patient is currently using her average volume assured pressure support device, which is in the room. Physical exam: Patient is awake, alert, and oriented 3 Vital signs stable Adequate chest excursion with deep inspiration and expiration; patient currently using her average volume assured pressure support device Examination of the thoracolumbar spine reveals skin is intact with no abrasions , lacerations, or bruises; no erythema, purulence or signs of infection Spinomed TLSO brace is currently intact Pain with palpation along the mid thoracic spine No pain with palpation along the lumbar spine Dorsiflexion, plantarflexion, and extensor hallucis longus positive sustained bilaterally Lower extremity strength positive sustained bilaterally No significant pain with palpation over the right humerus Palpable bony projection over the right lateral humerus No significant erythema, swelling, or obvious sign of infection of the right humerus Evidence of some bruising most significant over the right forearm and right hand Evidence of some petechial appearing spots over the right upper extremity Active range of motion of the right upper extremity without significant difficulty No evidence of significant change or difficulty with the left upper extremity Active full range of motion of left upper extremity without difficulty Evidence of multiple tattoos over the right upper extremity and left upper extremity Neurovascularly intact Pertinent studies: MRI of the humerus taken on 12/26/2017: Nonenhancing lesion that is predominantly compact bone on the lateral aspect mid shaft of the humerus which has benign features; adjacent muscle structures appear intact; no soft tissue edema; contrast imaging does not show evidence of pathological enhancement and would consider osteochondroma as well as a focus of myositis ossificans X-ray was thoracic spine taken on 12/23/2017: Vertebral body compression fractures at T8 and T9 appear stable without significant changes compared to previous study; no evidence of new impression fracture deformity; intervertebral disc spacing appears to be adequately maintained; overall alignment is maintained; evidence of kyphosis at approximately T8 X-rays the right humerus taken on 12/23/2017: Evidence of irregular ossific cortical projection laterally at the right humerus that could reflect osteochondroma; no evidence of fracture Chest x-ray taken on 12/21/2017: Course and interstitium can be seen with bronchitis or interstitial pneumonitis, correlate for COPD; extension of the medial diaphysis of the humerus, correlate for right humeral osteochondroma; no evidence of cortical destruction of the right humerus; some evidence of soft tissue change at the right humerus X-rays of thoracic spine taken on 11/03/2017: Subacute T8 compression fracture deformity at approximately 30% height loss; acute T9 compression fracture deformity of approximately 30% height loss Assessment: Severe chronic oxygen dependent end-stage COPD with acute on chronic hypoxic respiratory failure Possible right humerus osteochondroma Thoracic back pain Previously diagnosed subacute T8 compression fracture deformity Previously diagnosed acute T9 compression fracture deformity Osteopenia Plan: 1. Patient has been discussed in detail with Dr. Harshad Irving and imaging has been reviewed. We have previously reviewed her x-ray imaging regards to the right humerus and thoracic spine. She is also been able to undergo an MRI of the right humerus. At this time, we'll continue with conservative treatment in regards to her compression fracture deformities at T8 and T9 as well as her right humerus. In regards to her thoracic spine, compression fracture deformity at T8 and T9 appear stable without significant change. A prescription for a Spinomed TLSO brace was previously written and this brace has been delivered and fitted appropriately. We discussed patient should wear this brace while sitting upright at greater than 45, during ambulation, and during increase activities. Brace does not have to be worn while lying in bed or while bathing. We are not currently planning for surgical intervention with kyphoplasty at this time at her fracture sites of T8 and T9. MRI results of the right humerus showed nonenhancing lesion this predominate compact bone without evidence of pathological enhancement and would consider osteochondroma as well as focus of myositis ossificans and the diagnosis. X-rays of the right humerus showed evidence of irregular ossific cortical projection laterally at the right humerus that could reflect osteochondroma, which was seen on previous chest x-ray. Patient is not experiencing any pain or discomfort or difficulty with range of motion of the right humerus or right upper extremity. Following these MRI results, we'll continue with conservative treatment for her right humerus and upper extremity and are not currently planning for further imaging or plan any invasive treatment for her right upper extremity. She may continue to use her right upper extremity to participate in activities to tolerance. Following the follow-up evaluation of the MRI of the right humerus, we discussed patient is able to be discharged from orthopedic standpoint and we'll plan to have her follow up in outpatient setting further treatment evaluation 2. Patient will continue to be followed by pulmonology and medicine 3. Patient is clear for discharge from orthopedic standpoint; patient may follow-up with Asif Singh PA-C or Dr. Harshad Irving at [facility] in approximately 2-3 weeks for further evaluation 4. Continue pain control as controlled by medicine and pulmonology 5. Patient has been discussed in detail with Dr. Harshad Irving he agrees with this plan
--- NOTE | 2017-12-27 15:59 | P.PN ---
Subjective Patient is seen and examined by me at bedside Known new complaints No CP/SOB, no change in urine or bowel habits, no fever Objective - Vital Signs Vital signs: Vital Signs Temp 98.2 F 12/27/17 11:41 Pulse 96 12/27/17 13:44 Resp 24 12/27/17 11:41 BP 174/92 12/27/17 11:41 Pulse Ox 94 L 12/27/17 11:41 Intake & Output 12/26/17 12/27/17 12/27/17 18:59 06:59 18:59 Intake Total 1102 210 550 Output Total 200 1000 Balance 1102 10 -450 Weight 55.9 kg 55.9 kg Intake: Intake, IV Titration 400 160 Amount Sodium Chloride 0.45% 1, 400 160 000 ml @ 20 mls/hr IV . Q24H [facility] Rx#:[id number] Oral 702 50 550 Output: Urine 200 1000 Other: Voiding Method Bedside Commode Bedside Commode # Voids 1 # Bowel Movements 1 - Exam Constitutional: No acute distress, conversant, pleasant Eyes: Anicteric sclerae, moist conjunctiva, no lid-lag PERRLA ENMT: NC/AT Oropharynx clear, no erythema, exudates Neck: Supple, FROM, no masses, or JVD No carotid bruits No thyromegaly Lungs: Clear to auscultation, scattered wheezing Clear to percussion Normal respiratory effort, no accessory muscle use Cardiovascular: Heart regular in rate and rhythm, No murmurs, gallops, or rubs No peripheral edema Abdominal: Soft Nontender, no guarding, rebound or rigidity Abdomen moving with respiration Normoactive bowel sounds No hepatomegaly, No splenomegaly No palpable mass No abdominal wall hernia noted Skin: Normal temperature, tone, texture, turgor No induration No subcutaneous nodules No rash, lesions No ulcers Extremities: No digital cyanosis No clubbing Pedal pulses intact and symmetrical Radial pulses intact and symmetrical Normal gait and station No calf tenderness Psychiatric: Alert and oriented to person, place and time Appropriate affect Intact judgement Neuro: Muscles Strength 5/5 in all 4 extremities Sensation to light touch grossly present throughout Cranial nerves II-XII grossly intact No focal sensory deficits - Labs CBC & Chem 7: 12/25/17 05:48 12/25/17 05:48 Labs: Abnormal Lab Results - Last 24 Hours (Table) 05/03/0812/26/17 12/27/17 Range/Units 16:35 20:47 11:47 POC Glucose (mg/dL) 142 H 165 H 141 H (75-99) mg/dL Microbiology - Last 24 Hours (Table) 12/21/17 10:34 Blood Culture - Final Blood No Growth after 144 hours Assessment and Plan Assessment: COPD Right humerus bone extension Dehydration Plan: There was admitted the patient for inpatient, continue with IV hydration, antibiotics, breathing treatments, steroids Patient breathing is more tired today, called antenna design engineer Dr. Molina, pt is end stage COPD Follow-up her vitals and labs Continue with BiPAP, owned by the pt Also call orthopedic floor her right humeral lesion, s/p MRI of the humerus: possible osteochondroma vs myosistis ossificans .orthopedic team consider conservative Mx and outpt f/u Patient was informed about her bone lesions, risk of cancer explained for the patient start on lidocaine , prognosis is guarded D/W staff
[2017-12-27 16:46] LABS: Glucose,Whole Blood 155 mg/dL (75-99)
[2017-12-27] MEDS: HYDROcodone/APAP 10-325MG 1 EACH TAB PO PRN (19:26)
[2017-12-27] MEDS: risperiDONE 1 MG TAB PO SCH (20:39)
[2017-12-27] MEDS: traZODone HCL 100 MG TAB PO SCH (20:39)
[2017-12-27] MEDS: buPROPion XL 150 MG TAB.ER.24H PO SCH (20:40)
[2017-12-27] MEDS: ASPIRIN 325 MG TAB PO SCH (20:40)
[2017-12-27 20:56] LABS: Glucose,Whole Blood 269 mg/dL (75-99)
[2017-12-28] MEDS: methylPREDNISolone SOD SUCCI 125 MG/2 ML VIAL IV SCH ×3 (00:07→12:30)
[2017-12-28] MEDS: HYDROcodone/APAP 10-325MG 1 EACH TAB PO PRN ×4 (01:42→19:56)
[2017-12-28] MEDS: IPRATROPIUM-ALBUTEROL 3 ML NEB INHALATION PRN ×3 (02:08→13:57)
[2017-12-28 06:01] LABS: Glucose,Whole Blood 145 mg/dL (75-99)
[2017-12-28 06:27] LABS: Basophils % (A) 0 %; Eosinophils % (A) 0 %; HCT 43.4 % (34.0-46.0); Hypochromasia Slight; Lymphocytes # (A) 0.9 k/uL (1.0-4.8); Lymphocytes % (A) 6 %; MCH 27.8 pg (25.0-35.0); MCHC 32.2 g/dL (31.0-37.0); MCV 86.4 fL (80.0-100.0); Mean Platelet Volume 7.1; Monocytes # (A) 0.5 k/uL (0-1.0); Monocytes % (A) 4 %; Neutrophils # (A) 12.6 k/uL (1.3-7.7); Neutrophils % (A) 89 %; Platelet Count 568 k/uL (150-450); RBC 5.02 m/uL (3.80-5.40); RDW 15.5 % (11.5-15.5); WBC 14.2 k/uL (3.8-10.6)
[2017-12-28 06:36] LABS: Anion Gap 10 mmol/L; Blood Urea Nitrogen 34 mg/dL (7-17); Calcium 10.2 mg/dL (8.4-10.2); Carbon Dioxide 35 mmol/L (22-30); Chloride 96 mmol/L (98-107); Glucose 144 mg/dL (74-99); Potassium 5.4 mmol/L (3.5-5.1); Sodium 141 mmol/L (137-145)
[2017-12-28] MEDS: CALCIUM CARB-VIT D 500MG-200UN 1 EACH TAB PO SCH ×2 (06:36→17:17)
[2017-12-28] MEDS: PANTOPRAZOLE 40 MG TABLET PO SCH (06:36)
[2017-12-28] MEDS: INSULIN ASPART 100 UNIT/ML 1 ML 10 ML VIAL SQ SCH ×4 (06:36→21:09)
[2017-12-28] MEDS: BUDESONIDE 1 MG/2 ML NEBU INHALATION SCH ×2 (07:41→20:07)
[2017-12-28] MEDS: FORMOTEROL FUMARATE 20 MCG/2 ML NEBU INHALATION SCH ×2 (07:41→20:07)
[2017-12-28] MEDS: IPRATROPIUM-ALBUTEROL 3 ML NEB INHALATION SCH ×4 (07:41→20:08)
[2017-12-28] MEDS: LIDOCAINE 5% PATCH TOPICAL SCH (08:28)
[2017-12-28] MEDS: FLUTICASONE 50MCG/SPRAY NASAL 16GM EA NOSTRIL SCH (08:28)
[2017-12-28] MEDS: VERAPAMIL SR 180 MG TABLET.ER PO SCH (08:29)
[2017-12-28] MEDS: amLODIPine 10 MG TAB PO SCH (08:29)
[2017-12-28] MEDS: THEOPHYLLINE 24 HOUR 200 MG CAP.ER.24H PO SCH ×2 (08:29→19:55)
[2017-12-28] MEDS: AZITHROMYCIN 500 MG TAB PO SCH (08:29)
[2017-12-28] MEDS: PREGABALIN 75 MG CAP PO SCH ×2 (08:33→19:54)
[2017-12-28 11:51] LABS: Glucose,Whole Blood 117 mg/dL (75-99)
[2017-12-28] MEDS: MULTIVITAMINS, THERA 1 EACH TAB PO SCH (12:30)
[2017-12-28] MEDS: ALPRAZolam 0.25 MG TAB PO PRN (12:30)
--- NOTE | 2017-12-28 12:45 | P.PN ---
Subjective Patient is a still dyspneic at bedside, her oxygen titrated down from 10 L to 8 L, at baseline she uses 6 L Patient state that she is close to her usual state but not. Objective - Vital Signs Vital signs: Vital Signs Temp 98.5 F 12/28/17 11:57 Pulse 102 H 12/28/17 11:57 Resp 20 12/28/17 11:57 BP 140/88 12/28/17 11:57 Pulse Ox 98 12/28/17 11:57 Intake & Output 12/27/17 12/28/17 12/28/17 18:59 06:59 18:59 Intake Total 1060 160 437 Output Total 1000 600 600 Balance 60 -440 -163 Weight 55.9 kg 56.3 kg Intake: Intake, IV Titration 160 160 Amount Sodium Chloride 0.45% 1, 160 160 000 ml @ 20 mls/hr IV . Q24H [facility] Rx#:[id number] Oral 900 437 Output: Urine 1000 600 600 Other: Voiding Method Bedside Commode Bedside Commode Bedside Commode # Voids 2 # Bowel Movements 1 1 - Exam Constitutional: No acute distress, conversant, pleasant Eyes: Anicteric sclerae, moist conjunctiva, no lid-lag PERRLA ENMT: NC/AT Oropharynx clear, no erythema, exudates Neck: Supple, FROM, no masses, or JVD No carotid bruits No thyromegaly Lungs: Clear to auscultation, Clear to percussion, bilateral wheezing Normal respiratory effort, no accessory muscle use Cardiovascular: Heart regular in rate and rhythm, No murmurs, gallops, or rubs No peripheral edema Abdominal: Soft Nontender, no guarding, rebound or rigidity Abdomen moving with respiration Normoactive bowel sounds No hepatomegaly, No splenomegaly No palpable mass No abdominal wall hernia noted Skin: Normal temperature, tone, texture, turgor No induration No subcutaneous nodules No rash, lesions No ulcers Extremities: No digital cyanosis No clubbing Pedal pulses intact and symmetrical Radial pulses intact and symmetrical Normal gait and station No calf tenderness Psychiatric: Alert and oriented to person, place and time Appropriate affect Intact judgement Neuro: Muscles Strength 5/5 in all 4 extremities Sensation to light touch grossly present throughout Cranial nerves II-XII grossly intact No focal sensory deficits - Labs CBC & Chem 7: 12/28/17 05:26 05/09/18 05:26 Labs: Abnormal Lab Results - Last 24 Hours (Table) 18 12/27/17 12/28/17 Range/Units 16:41 20:54 05:26 WBC 14.2 H (3.8-10.6) k/uL Plt Count 568 H (150-450) k/uL Neutrophils # 12.6 H (1.3-7.7) k/uL Lymphocytes # 0.9 L (1.0-4.8) k/uL Potassium (3.5-5.1) mmol/L Chloride (98-107) mmol/L Carbon Dioxide (22-30) mmol/L BUN (7-17) mg/dL Creatinine (0.52-1.04) mg/dL Glucose (74-99) mg/dL POC Glucose (mg/dL) 155 H 269 H (75-99) mg/dL 12/28/17 12/28/17 12/28/17 Range/Units 05:26 05:56 11:49 WBC (3.8-10.6) k/uL Plt Count (150-450) k/uL Neutrophils # (1.3-7.7) k/uL Lymphocytes # (1.0-4.8) k/uL Potassium 5.4 H (3.5-5.1) mmol/L Chloride 96 L (98-107) mmol/L Carbon Dioxide 35 H (22-30) mmol/L BUN 34 H (7-17) mg/dL Creatinine 0.39 L (0.52-1.04) mg/dL Glucose 144 H (74-99) mg/dL POC Glucose (mg/dL) 145 H 117 H (75-99) mg/dL Microbiology - Last 24 Hours (Table) 12/21/17 10:34 Blood Culture - Final Blood No Growth after 144 hours Assessment and Plan Assessment: COPD Right humerus bone extension Dehydration Plan: There was admitted the patient for inpatient, continue with IV hydration, antibiotics, breathing treatments, steroids Patient breathing is more tired today, called property assistant Dr. Molina, pt is end stage COPD Follow-up her vitals and labs Continue with BiPAP, owned by the pt Also call orthopedic floor her right humeral lesion, s/p MRI of the humerus: possible osteochondroma vs myosistis ossificans .orthopedic team consider conservative Mx and outpt f/u Patient was informed about her bone lesions, risk of cancer explained for the patient start on lidocaine , prognosis is guarded D/W staff
--- NOTE | 2017-12-28 13:01 | P.PN ---
Subjective Progress Note Date: 12/28/17 Principal diagnosis: Acute on chronic hypoxic and hypercapnic respiratory failure This is a very pleasant 47-year-old female patient who follows with Dr. John as her primary care physician. She has a history of gastroesophageal reflux disease, a arthritis, hyperlipidemia, chronic pain syndrome, cervical and lumbar spine spondylosis cysts, chronic migraines, peptic ulcer disease, depression, cervical cancer, anorexia/cachexia malnourishment a significant total body protein mass loss. She has has a history of severe oxygen dependent end-stage chronic obstructive pulmonary disease. She utilizes oxygen at 5 L/m per nasal cannula at home. She also utilizes an average volume assured pressure support (AVAPS) device. She has chronic and ongoing tobacco dependence. She follows with Dr. Molina in our office. She her last FEV1 value is 27% of predicted. The patient also has history of MRSA pneumonia and strep pneumonias. She has had multiple admissions for COPD exacerbations most recently 11/02/2017. He is admitted here yesterday morning after having worsening shortness of breath, dry nonproductive cough. She states she did have a fever at home. She's had significant chest tightness and wheezing. Despite increased use of her nebulized treatments without much improvement. Her chest x-ray reveals coarsened interstitium consistent with bronchitis or interstitial pneumonitis. She has her home a VATS device in place. Otherwise she requires 10 L high flow nasal cannula to maintain O2 saturations in the 90s. She's been tachycardic. Tachypneic. Currently afebrile. The culture reveals no growth to date. White count 14.3. Hemoglobin 12.4. Creatinine 0.36. Patient is seen again today 12/27/2017 in follow-up on the selective care unit. She is awake and alert in no acute distress. She has been quite slow to progress. She is still dyspneic on conversation. She is spending most of her time on the AVAPS machine. When she still requires 10 L high flow nasal cannula. She is usually on 5 L at home. She has a dry nonproductive cough. The blood cultures reveal no growth to date. She has continued and ongoing complaints of back pain and is requesting an increase of her Jameson which is already at 7.5 mg tablet every 6 hours. The patient is seen again today 01/07/2018 followed on the selective care unit. She is doing better today as compared to yesterday. Almost back to her baseline. She is feeling better now on her Jameson 10mg which is controlling her back pain. She is down to 8 L/m per nasal cannula while off her AVAPS. She remains afebrile. Slightly tachycardic. Dyspneic with minimal conversation. White count 14.2. She is empirically on azithromycin. Continue with the pulmonary medications. Objective - Vital Signs Vital signs: Vital Signs Temp 98.5 F 12/28/17 11:57 Pulse 102 H 12/28/17 11:57 Resp 20 12/28/17 11:57 BP 140/88 12/28/17 11:57 Pulse Ox 98 12/28/17 11:57 Intake & Output 12/27/17 12/28/17 12/28/17 18:59 06:59 18:59 Intake Total 1060 160 437 Output Total 1000 600 600 Balance 60 -440 -163 Weight 55.9 kg 56.3 kg Intake: Intake, IV Titration 160 160 Amount Sodium Chloride 0.45% 1, 160 160 000 ml @ 20 mls/hr IV . Q24H [facility] Rx#:[id number] Oral 900 437 Output: Urine 1000 600 600 Other: Voiding Method Bedside Commode Bedside Commode Bedside Commode # Voids 2 # Bowel Movements 1 1 - Exam GENERAL EXAM: Frail, cachectic, mild respiratory distress. Alert and oriented 3. EYES: Normal reaction of pupils, equal size. NOSE: Clear with pink turbinates. THROAT: No erythema or exudates. NECK: No masses, no JVD. CHEST: No abnormalities LUNGS: Equal air entry with bilateral end expiratory wheeze. Diminished throughout.. CVS: S1 and S2 normal with no audible murmur, regular rhythm. Tachycardiac. ABDOMEN: No hepatosplenomegaly, normal bowel sounds, no guarding or rigidity. SPINE: Full scoliosis SKIN: No rashes CENTRAL NERVOUS SYSTEM: No focal deficits, tone is normal in all 4 extremities. EXTREMITIES: There is no peripheral edema. No clubbing, no cyanosis. Peripheral pulses are intact. - Labs CBC & Chem 7: 12/28/17 05:26 12/28/17 05:26 Labs: Abnormal Lab Results - Last 24 Hours (Table) 12/27/17 12/27/17 12/28/17 Range/Units 16:41 20:54 05:26 WBC 14.2 H (3.8-10.6) k/uL Plt Count 568 H (150-450) k/uL Neutrophils # 12.6 H (1.3-7.7) k/uL Lymphocytes # 0.9 L (1.0-4.8) k/uL Potassium (3.5-5.1) mmol/L Chloride (98-107) mmol/L Carbon Dioxide (22-30) mmol/L BUN (7-17) mg/dL Creatinine (0.52-1.04) mg/dL Glucose (74-99) mg/dL POC Glucose (mg/dL) 155 H 269 H (75-99) mg/dL 12/28/17 12/28/17 12/28/17 Range/Units 05:26 05:56 11:49 WBC (3.8-10.6) k/uL Plt Count (150-450) k/uL Neutrophils # (1.3-7.7) k/uL Lymphocytes # (1.0-4.8) k/uL Potassium 5.4 H (3.5-5.1) mmol/L Chloride 96 L (98-107) mmol/L Carbon Dioxide 35 H (22-30) mmol/L BUN 34 H (7-17) mg/dL Creatinine 0.39 L (0.52-1.04) mg/dL Glucose 144 H (74-99) mg/dL POC Glucose (mg/dL) 145 H 117 H (75-99) mg/dL Microbiology - Last 24 Hours (Table) 12/21/17 10:34 Blood Culture - Final Blood No Growth after 144 hours Assessment and Plan Assessment: Impression: #1 Acute on chronic hypoxic respiratory failure secondary to severe oxygen dependent end-stage chronic obstructive pulmonary disease. Gold stage IV with an FEV1 value 27% of predicted. On home oxygen at 5 L/m. #2 Acute on chronic severe hypercapnic respiratory failure requiring an average volume assured pressure support (AVAPS) device in the outpatient setting #3 Acute on Chronic thoracic spine pain. #4 Chronic and ongoing tobacco dependence. #5 Anorexia/cachexia syndrome with protein calorie malnutrition. #6 Bipolar disorder. #7 Hyperlipidemia. #8 Poor overall functional performance based on the above-mentioned multiple comorbidities. Plan: The patient was seen and evaluated by Dr. Molina. We'll continue her treatment for acute exacerbation of her COPD and hypercapnic respiratory failure. Continue DuoNeb inhalations 4 times a day and when necessary, IV Solu- Medrol, Pulmicort and Perforomist. Continue with AVAPS device as needed alternating with high flow nasal cannula. We'll continue to titrate down her FiO2 as tolerated. She is educated regarding the importance of cautious use of narcotics due to her severe end-stage COPD. We'll increase her activity as tolerated. Probable discharge in the a.m. We'll continue to follow and make further recommendations based on her clinical status. I, the cosigning physician, performed a history & physical examination of the patient. Lungs sounds have bilateral wheezing. Diminished throughout. Maintaining good O2 saturations in the 90s on 8 L high flow nasal cannula/ AVAPS. I discussed the assessment and plan of care with my nurse practitioner, Michaela Ribera. I attest to the above note as dictated by her.
[2017-12-28 16:33] LABS: Glucose,Whole Blood 182 mg/dL (75-99)
[2017-12-28] MEDS: methylPREDNISolone SOD SUCCI 40 MG/ML 1 ML VIAL IV SCH ×2 (17:17→22:46)
[2017-12-28] MEDS: ASPIRIN 325 MG TAB PO SCH (19:54)
[2017-12-28] MEDS: buPROPion XL 150 MG TAB.ER.24H PO SCH (19:54)
[2017-12-28] MEDS: traZODone HCL 100 MG TAB PO SCH (19:55)
[2017-12-28] MEDS: risperiDONE 1 MG TAB PO SCH (19:55)
[2017-12-28 20:46] LABS: Glucose,Whole Blood 146 mg/dL (75-99)
[2017-12-29] MEDS: IPRATROPIUM-ALBUTEROL 3 ML NEB INHALATION PRN ×2 (00:38→04:32)
[2017-12-29] MEDS: HYDROcodone/APAP 10-325MG 1 EACH TAB PO PRN ×2 (03:36→09:50)
[2017-12-29] MEDS: hydrALAZINE HCL 25 MG TAB PO PRN (04:05)
[2017-12-29 05:49] LABS: Glucose,Whole Blood 108 mg/dL (75-99)
[2017-12-29 05:51] LABS: Basophils % (A) 0 %; Eosinophils % (A) 0 %; HCT 44.4 % (34.0-46.0); HGB 14.1 gm/dL (11.4-16.0); Lymphocytes # (A) 1.1 k/uL (1.0-4.8); Lymphocytes % (A) 6 %; MCH 26.9 pg (25.0-35.0); MCHC 31.8 g/dL (31.0-37.0); MCV 84.5 fL (80.0-100.0); Mean Platelet Volume 6.9; Monocytes # (A) 0.5 k/uL (0-1.0); Monocytes % (A) 3 %; Neutrophils # (A) 15.3 k/uL (1.3-7.7); Neutrophils % (A) 90 %; Platelet Count 601 k/uL (150-450); RBC 5.25 m/uL (3.80-5.40); RDW 15.1 % (11.5-15.5); WBC 17.1 k/uL (3.8-10.6)
[2017-12-29 05:58] LABS: Anion Gap 12 mmol/L; Blood Urea Nitrogen 36 mg/dL (7-17); Calcium 10.3 mg/dL (8.4-10.2); Carbon Dioxide 32 mmol/L (22-30); Chloride 95 mmol/L (98-107); Glucose 107 mg/dL (74-99); Potassium 5.3 mmol/L (3.5-5.1); Sodium 139 mmol/L (137-145)
[2017-12-29] MEDS: methylPREDNISolone SOD SUCCI 40 MG/ML 1 ML VIAL IV SCH (06:13)
[2017-12-29] MEDS: CALCIUM CARB-VIT D 500MG-200UN 1 EACH TAB PO SCH (06:13)
[2017-12-29] MEDS: INSULIN ASPART 100 UNIT/ML 1 ML 10 ML VIAL SQ SCH (06:13)
[2017-12-29] MEDS: PANTOPRAZOLE 40 MG TABLET PO SCH (06:16)
[2017-12-29] MEDS: BUTALB/APAP/CAFF 50-325-40MG TAB PO PRN (06:21)
[2017-12-29] MEDS: amLODIPine 10 MG TAB PO SCH (06:24)
[2017-12-29] MEDS: VERAPAMIL SR 180 MG TABLET.ER PO SCH (06:25)
[2017-12-29] MEDS: IPRATROPIUM-ALBUTEROL 3 ML NEB INHALATION SCH ×2 (07:04→11:57)
[2017-12-29] MEDS: FORMOTEROL FUMARATE 20 MCG/2 ML NEBU INHALATION SCH (07:05)
[2017-12-29] MEDS: BUDESONIDE 1 MG/2 ML NEBU INHALATION SCH (07:05)
[2017-12-29] MEDS: FLUTICASONE 50MCG/SPRAY NASAL 16GM EA NOSTRIL SCH (08:23)
[2017-12-29] MEDS: AZITHROMYCIN 500 MG TAB PO SCH (08:23)
[2017-12-29] MEDS: LIDOCAINE 5% PATCH TOPICAL SCH (08:24)
[2017-12-29] MEDS: THEOPHYLLINE 24 HOUR 200 MG CAP.ER.24H PO SCH (08:25)
[2017-12-29] MEDS: PREGABALIN 75 MG CAP PO SCH (08:30)
[2017-12-29] MEDS: ALPRAZolam 0.25 MG TAB PO PRN (08:33)
[2017-12-29 09:36] VITALS: BP 144/87; PULSE 88; RESP 16; TEMP 98.2
--- NOTE | 2017-12-29 12:07 | P.PN ---
Subjective Progress Note Date: 12/29/17 Principal diagnosis: Acute COPD exacerbation Progress note dated 12/23/2017 47-year-old female who looks 87, was history of severe end-stage COPD. Her FEV1 is 27% of predicted. She is oxygen dependent. Was admitted with a diagnosis of COPD exacerbation. Hasn't had many admissions to this hospital on the past. Has history of acute on chronic hypercapnic and hypoxemic respiratory failure requiring average volume assured pressure support. The patient also has chronic back pain chronic and ongoing tobacco dependence severe anorexia cachexia syndrome bipolar disorder hyperlipidemia and general medical debility. She feels a bit better today than she did yesterday. She is being treated with standard medications including her breathing treatments bronchodilators steroids antibiotics, etc. Her overall prognosis is very poor though. Her CODE STATUS really does need to be addressed. It would be a disaster, if she ended up on life support. Progress note dated 12/25/2017 The patient is seen again on December 25. Doing about the same as she did yesterday. Very short of breath with any activity. Has conversational dyspnea. Going between her nasal O2 and her average volume assured pressure support device. She still has a very long way to go. Still wants to BE a full code. The patient's complaints include primarily shortness of breath with any activity. Minimal cough. Not producing any phlegm. In addition to severe end-stage COPD , she has a history of ongoing tobacco dependence with nicotine abuse, anorexia/ cachexia syndrome bipolar disorder hyperlipidemia and general medical debility. On 12/26/2017 patient seen in follow-up on selective care unit. She is resting in bed, in no acute distress, she is currently on 10 L per nasal cannula, O2 sat 93%. Afebrile, vital signs are stable. She states her breathing is improving. She is wearing her trilogy ventilator intermittently. Her appetite is fair. She is being initiated acute COPD exacerbation with a combination of empiric antibiotics Zithromax, IV steroids, nebulized bronchodilators, theophylline, and the patient is continuously improving. Patient states she quit smoking. Her coughing is minimal, with scattered inspiratory and expiratory rhonchi and wheezes. Patient is seen again today 12/27/2017 in follow-up on the selective care unit. She is awake and alert in no acute distress. She has been quite slow to progress. She is still dyspneic on conversation. She is spending most of her time on the AVAPS machine. When she still requires 10 L high flow nasal cannula. She is usually on 5 L at home. She has a dry nonproductive cough. The blood cultures reveal no growth to date. She has continued and ongoing complaints of back pain and is requesting an increase of her [place] which is already at 7.5 mg tablet every 6 hours. The patient is seen again today 12/28/2017 followed on the selective care unit. She is doing better today as compared to yesterday. Almost back to her baseline. She is feeling better now on her [place] 10mg which is controlling her back pain. She is down to 8 L/m per nasal cannula while off her AVAPS. She remains afebrile. Slightly tachycardic. Dyspneic with minimal conversation. White count 14.2. She is empirically on azithromycin. Continue with the pulmonary medications. On 12/29/2017 patient seen in follow-up in medical surgical floor. Doing very well, lung sounds less diminished, no wheezing, a few scattered rhonchi. Patient sitting up in the chair, Fio2 down to 6 L per nasal cannula with O2 sat 95%. No signs are stable, patient is afebrile, denies labs show crease white count, 17.1, likely steroid related, patient is afebrile, denies any fever or chills.Blood cultures are negative. Patient is stable for discharge home today. Objective - Vital Signs Vital signs: Vital Signs Temp 98.2 F 12/29/17 09:20 Pulse 88 12/29/17 09:20 Resp 16 12/29/17 09:20 BP 144/87 12/29/17 09:20 Pulse Ox 95 12/29/17 09:20 Intake & Output 12/28/17 12/29/17 12/29/17 18:59 06:59 18:59 Intake Total 659 20 118 Output Total 1100 Balance -441 20 118 Weight 55.7 kg Intake: IV 10 0.9 10 Intake, IV Titration 10 Amount Sodium Chloride 0.45% 1, 10 000 ml @ 20 mls/hr IV . Q24H [place] Rx#:[id number] Oral 659 118 Output: Urine 1100 Other: Voiding Method Bedside Commode Toilet Bedside Commode # Voids 2 # Bowel Movements 1 - Exam he patient's currently on her average volume short pressure-support ventilator. Her mask is in place. She's quite tachypnea and dyspneic. She is alert. HEENT examination is grossly unremarkable. Mucous membranes are moist. No oral lesions. Neck supple. Full range of motion. No adenopathy thyromegaly or neck vein distention. Cardiovascular examination reveals regular rhythm rate. S1-S2 normal. No S3 or S4. No discernible murmur noted. She is tachycardic. Lungs revealed equal breath sounds bilaterally, less diminished on today's exam , a few scattered rhonchi, but no wheezes noted. Abdomen soft bowel sounds are heard. No masses or tenderness. Extremities are intact. No cyanosis clubbing or edema. Skin is without rash or lesion. Neurologic examination is brief but nonfocal. - Labs CBC & Chem 7: 12/29/17 05:21 12/29/17 05:21 Labs: Abnormal Lab Results - Last 24 Hours (Table) 12/28/17 12/28/17 12/29/17 Range/Units 16:31 20:45 05:21 WBC 17.1 H (3.8-10.6) k/uL Plt Count 601 H (150-450) k/uL Neutrophils # 15.3 H (1.3-7.7) k/uL Potassium (3.5-5.1) mmol/L Chloride (98-107) mmol/L Carbon Dioxide (22-30) mmol/L BUN (7-17) mg/dL Creatinine (0.52-1.04) mg/dL Glucose (74-99) mg/dL POC Glucose (mg/dL) 182 H 146 H (75-99) mg/dL Calcium (8.4-10.2) mg/dL 12/29/17 12/29/17 Range/Units 05:21 05:48 WBC (3.8-10.6) k/uL Plt Count (150-450) k/uL Neutrophils # (1.3-7.7) k/uL Potassium 5.3 H (3.5-5.1) mmol/L Chloride 95 L (98-107) mmol/L Carbon Dioxide 32 H (22-30) mmol/L BUN 36 H (7-17) mg/dL Creatinine 0.50 L (0.52-1.04) mg/dL Glucose 107 H (74-99) mg/dL POC Glucose (mg/dL) 108 H (75-99) mg/dL Calcium 10.3 H (8.4-10.2) mg/dL Assessment and Plan Plan: Assessment: Acute on chronic hypoxemic and hypercapnic respiratory failure and a patient with end-stage COPD. FEV1 is 27% of predicted. The patient's on home oxygen therapy and uses average volume assured pressure support typically at nighttime for ventilatory support. Hypercapnic respiratory failure Chronic low back pain Chronic and ongoing tobacco dependence Anorexia/cachexia syndrome Bipolar disorder Hyperlipidemia General medical debility History of cervical cancer Plan: Patient continues to improve, lung sounds are less diminished on today's exam, signs stable, patient is afebrile. Patient is stable for discharge home today on standpoint, prednisone taper, her maintenance nebulized treatments and inhalers, she has completed 5 day course of azithromycin. Follow-up with Dr. Molina in the office in 7-10 days. I performed a history & physical examination of the patient and discussed their management with my nurse practitioner, Elida Agarwal. I reviewed the nurse practitioner's note and agree with the documented findings and plan of care. Lung sounds are diminished but better air entry noted bilaterally, with scattered rhonchi. The findings and the impression was discussed with the patient. I attest to the documentation by the nurse practitioner. Time with Patient: Less than 30
--- NOTE | 2017-12-29 23:35 | DS ---
DISCHARGE SUMMARY DATE OF SERVICE: 12/29/2017 FINAL DIAGNOSES: 1. Chronic obstructive pulmonary disease exacerbation. 2. Acute purulent tracheobronchitis. 3. Right humerus bone lesion. 4. Dehydration. DISCHARGE DISPOSITION: The patient will be discharged in stable condition with guarded prognosis. HISTORY OF PRESENT ILLNESS: This 47-year-old woman with a past medical history of multiple medical problems was admitted with COPD and multiple other medical issues in conjunction with Dr. Molina. The patient was also seen by Orthopedic Surgery. The patient improved significantly. The patient is less short of breath, which is the patient's baseline. On exam, vitals are stable. CARDIOVASCULAR SYSTEM: S1 and S2. ABDOMEN: Soft. RESPIRATORY: A few scattered rhonchi and crackles. Expiratory wheezing and rhonchi. NERVOUS SYSTEM: No focal deficits. DISCHARGE ADVICE AND MEDICATIONS: 1. Diet is cardiac. 2. Activity limited until followup. 3. Follow up with Dr. John in 2-3 days. 4. Follow up with Orthopedics as recommended. 5. Albuterol 2 puffs p.r.n. 6. Norvasc 10 mg p.o. daily. 7. Aspirin 325 mg q.h.s. 8. Zithromax 500 mg daily for 5 days. 9. Symbicort 160/4.5 two puffs b.i.d. 10.Wellbutrin SR 150 mg q.h.s.. 11.Butalbital 1 q.8 p.r.n. 12.Calcium with vitamin D 1 p.o. daily. 13.Flonase once 2 sprays daily. 14.Apresoline 25 mg p.o. t.i.d. p.r.n. 15.[place] 1 tab p.o. every 6 hours p.r.n. 16.DuoNeb q.i.d. and p.r.n. 17.Multivitamin 1 p.o. daily. 18.Prilosec 40 mg p.o. b.i.d. 19.Prednisone taper 40 mg daily for 3 days, 30 mg for 3 days, 20 mg for 3 days, 10 mg for 3 days. 20.Lyrica 150 mg p.o. b.i.d. 21.Risperdal 3 mg p.o. q.h.s. 22.Requip 1 mg q.h.s. 23.Akhil-24 20 mg p.o. b.i.d. 24.Trazodone 300 mg p.o. q.h.s. 25.Isoptin 180 mg p.o. daily. Once again, the patient will be discharged in stable condition with guarded prognosis. MMODL / ISABELN: [id number] /
== END 2017-12-29 12:53 | disposition home or self-care (01) | DRG 190 ==
LOC: EC 10:04 → 6SEL 11:55 → 4MS4W 12-29 09:22
PROVIDERS: ADMIT Internal Medicine; ATTEND Internal Medicine
DX: J44.1 Chronic obstructive pulmonary disease with (acute) exacerbation (principal); J96.21 Acute and chronic respiratory failure with hypoxia; J96.22 Acute and chronic respiratory failure with hypercapnia; E46 Unspecified protein-calorie malnutrition; R64 Cachexia; M48.54XA Collapsed vertebra, not elsewhere classified, thoracic region, initial encounter for fracture; K21.9 Gastro-esophageal reflux disease without esophagitis; E86.0 Dehydration; M51.36 Other intervertebral disc degeneration, lumbar region; G25.81 Restless legs syndrome; E78.5 Hyperlipidemia, unspecified; H26.9 Unspecified cataract; M19.90 Unspecified osteoarthritis, unspecified site; F17.200 Nicotine dependence, unspecified, uncomplicated; M50.322 Other cervical disc degeneration at C5-C6 level; R00.0 Tachycardia, unspecified; I25.10 Atherosclerotic heart disease of native coronary artery without angina pectoris; G89.4 Chronic pain syndrome; D16.01 Benign neoplasm of scapula and long bones of right upper limb; F31.9 Bipolar disorder, unspecified; G43.909 Migraine, unspecified, not intractable, without status migrainosus; J84.89 Other specified interstitial pulmonary diseases; M85.80 Other specified disorders of bone density and structure, unspecified site; Z66 Do not resuscitate; Z88.1 Allergy status to other antibiotic agents; Z91.030 Bee allergy status; Z88.2 Allergy status to sulfonamides; Z88.8 Allergy status to other drugs, medicaments and biological substances; Z91.048 Other nonmedicinal substance allergy status; Z79.51 Long term (current) use of inhaled steroids; Z79.899 Other long term (current) drug therapy; Z79.891 Long term (current) use of opiate analgesic; Z79.82 Long term (current) use of aspirin; Z79.52 Long term (current) use of systemic steroids; Z81.1 Family history of alcohol abuse and dependence; Z80.0 Family history of malignant neoplasm of digestive organs; Z90.49 Acquired absence of other specified parts of digestive tract; Z90.710 Acquired absence of both cervix and uterus; Z98.51 Tubal ligation status; Z86.010 Personal history of colon polyps; Z86.14 Personal history of Methicillin resistant Staphylococcus aureus infection; Z99.81 Dependence on supplemental oxygen; I25.2 Old myocardial infarction; Z87.01 Personal history of pneumonia (recurrent); Z87.11 Personal history of peptic ulcer disease; Z85.41 Personal history of malignant neoplasm of cervix uteri
CPT/HCPCS: 36415; 71045; 72070; 80048; 80053; 82550; 82553; 83735; 83880; 84484; 85025; 85027; 85610; 85730; 87040; 93005; 94640; 94644; 94760; 96361; 96374; 96375; 96376; 99285

== ENCOUNTER 2018-01-19 10:35 | Inpatient (IN) | payer OTHER ==
[2018-01-19] MEDS ORDERED: SODIUM CHLORIDE 0.9% 1,000 ML IV STA (10:45)
[2018-01-19] MEDS ORDERED: KETOROLAC 30 MG/ML 1 ML VIAL IVP STA (10:53)
--- NOTE | 2018-01-19 10:56 | ED ---
Abdominal Pain HPI - General Chief Complaint: Abdominal Pain Stated Complaint: left side pain Time Seen by Provider: 01/19/18 10:44 Source: patient, RN notes reviewed Mode of arrival: wheelchair Limitations: no limitations - History of Present Illness Initial Comments: This a 47-year-old female presents emergency Department chief complaint abdominal pain. Patient states she's been having left-sided abdominal pain left flank pain for several weeks saw PCP today who sent her for CT. Patient went office and off a central back secondary to. Pancreatic fluid collection. They told her that she needs to see a surgeon. She's had a prior hysterectomy, cholecystectomy, sections. Patient denies any dysuria or hematuria. She denies any nausea vomiting. She does complain of pain states that she only takes Tylenol at home. Patient reports no fever no chills no chest pain or shortness breath. Patient normally is wearing oxygen which is not out of the usual for her. - Related Data Home Medications Medication Instructions Recorded Confirmed Albuterol Inhaler [Ventolin Hfa 2 puff INHALATION RT-QID PRN 01/03/14 01/19/18 Inhaler] Omeprazole [PriLOSEC] 40 mg PO BID 01/03/14 01/19/18 Multivitamins, Thera [Multivitamin 1 tab PO DAILY 12/24/14 01/19/18 (formulary)] risperiDONE 3 mg PO HS 12/24/14 01/19/18 traZODone HCL 300 mg PO HS 12/24/14 01/19/18 buPROPion SR [Wellbutrin SR] 150 mg PO HS 04/30/15 01/19/18 Aspirin [Aspirin EC] 325 mg PO HS 03/24/16 01/19/18 Theophylline 24 Hour [Akhil-24] 200 mg PO BID 07/06/17 01/19/18 rOPINIRole HCL [Requip] 1 mg PO HS 11/02/17 01/19/18 Butalb/APAP/Caff 50-325-40Mg 1 tab PO Q8H PRN 12/21/17 01/19/18 [Fioricet 50-325-40] Calcium Carb-Vit D 250Mg-125Un 1 tab PO DAILY 12/21/17 01/19/18 [[place]scal 250+D] Fluticasone Nasal [place] [Flonase 2 spray EA NOSTRIL DAILY 12/21/17 01/19/18 Nasal [place]] Pregabalin [Lyrica] 150 mg PO BID 12/21/17 01/19/18 predniSONE 20 mg PO DAILY 01/19/18 01/19/18 Previous Rx's Medication Instructions Recorded Budesonide-Formot 160-4.5 Mcg 2 puff INHALATION RT-BID puff 07/13/16 [Symbicort 160-4.5 Mcg Inhaler] Ipratropium-Albuterol Nebulize 3 ml INHALATION RT-QID neb 01/20/17 [Duoneb 0.5 mg-3 mg/3 ml Soln] Ipratropium-Albuterol Nebulize 3 ml INHALATION RT-Q2H PRN 12/29/17 [Duoneb 0.5 mg-3 mg/3 ml Soln] ampul.neb Verapamil Sr [Isoptin Sr] 180 mg PO DAILY #30 tablet.er 12/29/17 amLODIPine [Norvasc] 10 mg PO DAILY #30 tab 12/29/17 hydrALAZINE HCL [Apresoline] 25 mg PO TID PRN #90 tab 12/29/17 Allergies Allergy/AdvReac Type Severity Reaction Status Date / Time aripiprazole [From Abilify] Allergy Rash/Hives Verified 01/19/18 10:56 cephalexin [From Keflex] Allergy Unknown Verified 01/19/18 10:56 honey Allergy Rash/Hives Verified 01/19/18 10:56 methadone [Methadone] Allergy Itching Verified 01/19/18 10:56 naproxen Allergy Rash/Hives Verified 01/19/18 10:56 sulfamethoxazole Allergy Rash/Hives Verified 01/19/18 10:56 [From Bactrim] tetracycline [Tetracycline] Allergy Rash/Hives Verified 01/19/18 10:56 trimethoprim [From Bactrim] Allergy Rash/Hives Verified 01/19/18 10:56 adhesive tape AdvReac Rash/Hives Verified 01/19/18 10:56 tramadol HCl [From Ultram] AdvReac SEIZURES Verified 01/19/18 10:56 tromethamine AdvReac Nausea & Verified 01/19/18 10:56 Vomiting Review of Systems ROS Statement: Those systems with pertinent positive or pertinent negative responses have been documented in the HPI. ROS Other: All systems not noted in ROS Statement are negative. Past Medical History Past Medical History: Asthma, Cancer, Chest Pain / Angina, COPD, Eye Disorder, GERD/Reflux, Hyperlipidemia, Myocardial Infarction (AL), Osteoarthritis (OA), Pneumonia, Respiratory Disorder Additional Past Medical History / Comment(s): Pt recently admitted to [facility] on with thoracic spine fractures T8-T9, possible oseoporosis. Other HX: End stage COPD, chronic hypoxic and hypercapnic respiratory failure, home O2 at 5L/NC and bipap at HS, steroid dependent, bronchitis, 1997 pt states she was told her EKG showed a past AL, cervical cancer with hysterectomy, PUD, carpal tunnel bilaterally, herniated discs C5-C6 and L5-L6, cervical/lumbar spondylosis, RLS, eczema, cataract L eye, tinnitis bilaterally, sinus problems. Last Myocardial Infarction Date:: UNK History of Any Multi-Drug Resistant Organisms: None Reported, MRSA Date of last positivie culture/infection: 06/18/2015 MDRO Source:: SPUTUM Past Surgical History: Section, Cholecystectomy, Ear Surgery, Hysterectomy, Tubal Ligation Additional Past Surgical History / Comment(s): x 2, EGD, colonoscopy with benign polypectomy, R ear cyst with surgery.. Past Anesthesia/Blood Transfusion Reactions: No Reported Reaction Additional Past Anesthesia/Blood Transfusion Reaction / Comment(s): Pt has never recieved blood. Past Psychological History: Anxiety, Bipolar, Depression Smoking Status: Former smoker Past Alcohol Use History: None Reported Past Drug Use History: None Reported - Past Family History Father Family Medical History: No Reported History Additional Family Medical History / Comment(s): WAS AN ALCOHOLIC Mother Family Medical History: Cancer Additional Family Medical History / Comment(s): AT AGE 54-BOWEL CANCER General Exam Limitations: no limitations General appearance: alert, in no apparent distress Head exam: Present: atraumatic, normocephalic, normal inspection Respiratory exam: Present: wheezes (Minimal), other (Nasal cannula oxygen supplementation). Absent: normal lung sounds bilaterally, respiratory distress , rales, rhonchi, stridor Cardiovascular Exam: Present: regular rate, normal rhythm, normal heart sounds. Absent: systolic murmur, diastolic murmur, rubs, gallop, clicks GI/Abdominal exam: Present: soft, tenderness (Mild epigastric and periumbilical and left-sided), normal bowel sounds. Absent: distended, guarding, rebound, rigid Back exam: Absent: CVA tenderness (R), CVA tenderness (L) Skin exam: Present: warm, dry, intact, normal color. Absent: rash Course Vital Signs 01/19/18 01/19/18 10:41 11:13 Temperature 98.4 F Pulse Rate 96 Respiratory 18 20 Rate Blood Pressure 129/70 O2 Sat by Pulse 94 L Oximetry Medical Decision Making - Lab Data Result diagrams: 01/19/18 10:50 01/19/18 10:50 Lab Results 01/19/18 01/19/18 01/19/18 Range/Units 10:50 10:50 10:50 WBC 9.9 (3.8-10.6) k/uL RBC 4.72 (3.80-5.40) m/uL Hgb 13.6 (11.4-16.0) gm/dL Hct 41.5 (34.0-46.0) % MCV 87.9 (80.0-100.0) fL MCH 28.9 (25.0-35.0) pg MCHC 32.8 (31.0-37.0) g/dL RDW 16.8 H (11.5-15.5) % Plt Count 452 H (150-450) k/uL Neutrophils % 85 % Lymphocytes % 11 % Monocytes % 2 % Eosinophils % 1 % Basophils % 0 % Neutrophils # 8.5 H (1.3-7.7) k/uL Lymphocytes # 1.1 (1.0-4.8) k/uL Monocytes # 0.2 (0-1.0) k/uL Eosinophils # 0.1 (0-0.7) k/uL Basophils # 0.0 (0-0.2) k/uL Anisocytosis Slight PT (9.0-12.0) sec INR (<1.2) APTT (22.0-30.0) sec Sodium 140 (137-145) mmol/L Potassium 4.3 (3.5-5.1) mmol/L Chloride 103 (98-107) mmol/L Carbon Dioxide 26 (22-30) mmol/L Anion Gap 11 mmol/L BUN 13 (7-17) mg/dL Creatinine 0.41 L (0.52-1.04) mg/dL Est GFR (CKD-EPI)AfAm >90 (>60 ml/min/1.73 sqM) Est GFR (CKD-EPI)NonAf >90 (>60 ml/min/1.73 sqM) Glucose 140 H (74-99) mg/dL Plasma Lactic Acid Tim 1.5 (0.7-2.0) mmol/L Calcium 9.6 (8.4-10.2) mg/dL Total Bilirubin 0.6 (0.2-1.3) mg/dL AST 23 (14-36) U/L ALT 27 (9-52) U/L Alkaline Phosphatase 79 (38-126) U/L Total Protein 7.0 (6.3-8.2) g/dL Albumin 4.5 (3.5-5.0) g/dL Amylase 73 (30-110) U/L Lipase 171 (23-300) U/L Urine Color Urine Appearance (Clear) Urine pH (5.0-8.0) Ur Specific [place] (1.001-1.035) Urine Protein (Negative) Urine Glucose (UA) (Negative) Urine Ketones (Negative) Urine Blood (Negative) Urine Nitrite (Negative) Urine Bilirubin (Negative) Urine Urobilinogen (<2.0) mg/dL Ur Leukocyte Esterase (Negative) Urine RBC (0-5) /hpf Urine WBC (0-5) /hpf Ur Squamous Epith Cells (0-4) /hpf Urine Bacteria (None) /hpf Urine Mucus (None) /hpf 01/19/18 01/19/18 Range/Units 10:50 11:15 WBC (3.8-10.6) k/uL RBC (3.80-5.40) m/uL Hgb (11.4-16.0) gm/dL Hct (34.0-46.0) % MCV (80.0-100.0) fL MCH (25.0-35.0) pg MCHC (31.0-37.0) g/dL RDW (11.5-15.5) % Plt Count (150-450) k/uL Neutrophils % % Lymphocytes % % Monocytes % % Eosinophils % % Basophils % % Neutrophils # (1.3-7.7) k/uL Lymphocytes # (1.0-4.8) k/uL Monocytes # (0-1.0) k/uL Eosinophils # (0-0.7) k/uL Basophils # (0-0.2) k/uL Anisocytosis PT 9.4 (9.0-12.0) sec INR 0.9 (<1.2) APTT 21.7 L (22.0-30.0) sec Sodium (137-145) mmol/L Potassium (3.5-5.1) mmol/L Chloride (98-107) mmol/L Carbon Dioxide (22-30) mmol/L Anion Gap mmol/L BUN (7-17) mg/dL Creatinine (0.52-1.04) mg/dL Est GFR (CKD-EPI)AfAm (>60 ml/min/1.73 sqM) Est GFR (CKD-EPI)NonAf (>60 ml/min/1.73 sqM) Glucose (74-99) mg/dL Plasma Lactic Acid Tim (0.7-2.0) mmol/L Calcium (8.4-10.2) mg/dL Total Bilirubin (0.2-1.3) mg/dL AST (14-36) U/L ALT (9-52) U/L Alkaline Phosphatase (38-126) U/L Total Protein (6.3-8.2) g/dL Albumin (3.5-5.0) g/dL Amylase (30-110) U/L Lipase (23-300) U/L Urine Color Light Yellow Urine Appearance Clear (Clear) Urine pH 5.0 (5.0-8.0) Ur Specific [place] 1.007 (1.001-1.035) Urine Protein Negative (Negative) Urine Glucose (UA) Negative (Negative) Urine Ketones Negative (Negative) Urine Blood Small H (Negative) Urine Nitrite Negative (Negative) Urine Bilirubin Negative (Negative) Urine Urobilinogen <2.0 (<2.0) mg/dL Ur Leukocyte Esterase Small H (Negative) Urine RBC 1 (0-5) /hpf Urine WBC 2 (0-5) /hpf Ur Squamous Epith Cells <1 (0-4) /hpf Urine Bacteria Occasional H (None) /hpf Urine Mucus Rare H (None) /hpf Disposition Clinical Impression: Abdominal pain, Ureteral calculi, Peripancreatic fluid collection Disposition: ADMITTED IP TO THIS [facility] Condition: Stable Referrals: Italo John MD [Primary Care Provider] - 1-2 days
[2018-01-19 11:08] LABS: Anisocytosis Slight; Basophils % (A) 0 %; Eosinophils # (A) 0.1 k/uL (0-0.7); Eosinophils % (A) 1 %; HCT 41.5 % (34.0-46.0); HGB 13.6 gm/dL (11.4-16.0); Lymphocytes # (A) 1.1 k/uL (1.0-4.8); Lymphocytes % (A) 11 %; MCH 28.9 pg (25.0-35.0); MCHC 32.8 g/dL (31.0-37.0); MCV 87.9 fL (80.0-100.0); Mean Platelet Volume 6.3; Monocytes # (A) 0.2 k/uL (0-1.0); Monocytes % (A) 2 %; Neutrophils # (A) 8.5 k/uL (1.3-7.7); Neutrophils % (A) 85 %; Platelet Count 452 k/uL (150-450); RBC 4.72 m/uL (3.80-5.40); RDW 16.8 % (11.5-15.5); WBC 9.9 k/uL (3.8-10.6)
[2018-01-19 11:20] LABS: ALT 27 U/L (9-52); AST 23 U/L (14-36); Albumin 4.5 g/dL (3.5-5.0); Alkaline Phosphatase 79 U/L (38-126); Amylase 73 U/L (30-110); Anion Gap 11 mmol/L; Blood Urea Nitrogen 13 mg/dL (7-17); Calcium 9.6 mg/dL (8.4-10.2); Carbon Dioxide 26 mmol/L (22-30); Chloride 103 mmol/L (98-107); Glucose 140 mg/dL (74-99); Lipase 171 U/L (23-300); Potassium 4.3 mmol/L (3.5-5.1); Sodium 140 mmol/L (137-145); Total Bilirubin 0.6 mg/dL (0.2-1.3)
[2018-01-19 11:24] LABS: INR 0.9 (<1.2); Prothrombin Time 9.4 sec (9.0-12.0)
[2018-01-19 11:52] LABS: Appearance,Urine Clear (Clear); Bacteria,Urine Occasional /hpf; Bilirubin,Urine Negative (Negative); Blood,Urine Small (Negative); Color,Urine Light Yellow; Glucose,Urine (UA) Negative (Negative); Ketones,Urine Negative (Negative); Leukocyte Esterase,Urine Small (Negative); Mucus,Urine Rare /hpf; Nitrite,Urine Negative (Negative); Protein,Urine Negative (Negative); RBC,Urine 1 /hpf (0-5); Specific Gravity,Urine 1.007 (1.001-1.035); Squamous Epithelial Cell,Urine <1 /hpf (0-4); Urobilinogen,Urine <2.0 mg/dL (<2.0); WBC,Urine 2 /hpf (0-5)
[2018-01-19 12:04] LABS: Partial Thromboplastin Time 21.7 sec (22.0-30.0)
[2018-01-19] MEDS ORDERED: ONDANSETRON 4 MG/2 ML VIAL IVP PRN (13:24)
[2018-01-19] MEDS ORDERED: ALBUTEROL INHALER 60 PUFF/8 GM INHALER INHALATION PRN (13:26)
[2018-01-19] MEDS ORDERED: hydrALAZINE HCL 25 MG TAB PO PRN (13:26)
[2018-01-19] MEDS ORDERED: HYDROcodone/APAP 5-325MG 1 EACH TAB PO STA (14:49)
[2018-01-19] MEDS: SODIUM CHLORIDE 0.9% 1,000 ML IV SCH (15:04)
[2018-01-19] MEDS: IPRATROPIUM-ALBUTEROL 3 ML NEB INHALATION SCH ×2 (15:17→19:00)
[2018-01-19] MEDS: SYMBICORT 160-4.5 MCG INHALER INHALATION SCH (19:00)
[2018-01-19] MEDS ORDERED: HYDROmorphone 0.5 MG/0.5 ML SYRINGE IVP STA (19:40)
[2018-01-19] MEDS: HYDROmorphone 0.5 MG/0.5 ML SYRINGE IVP PRN (19:56)
[2018-01-19] MEDS: PREGABALIN 75 MG CAP PO SCH (19:57)
[2018-01-19] MEDS: PANTOPRAZOLE 40 MG TABLET PO SCH (19:59)
[2018-01-19] MEDS: THEOPHYLLINE 24 HOUR 200 MG CAP.ER.24H PO SCH (19:59)
[2018-01-19] MEDS: traZODone HCL 100 MG TAB PO SCH (19:59)
[2018-01-19] MEDS: risperiDONE 1 MG TAB PO SCH (20:00)
[2018-01-19] MEDS: buPROPion SR 150 MG TABLET.ER PO SCH (20:00)
[2018-01-19] MEDS: HYDROcodone/APAP 5-325MG 1 EACH TAB PO PRN (22:15)
[2018-01-20] MEDS: HYDROmorphone 0.5 MG/0.5 ML SYRINGE IVP PRN ×7 (02:56→21:37)
[2018-01-20] MEDS: SODIUM CHLORIDE 0.9% 1,000 ML IV SCH ×2 (05:37→17:32)
[2018-01-20] MEDS: HYDROcodone/APAP 5-325MG 1 EACH TAB PO PRN ×3 (05:39→17:31)
[2018-01-20] MEDS: SYMBICORT 160-4.5 MCG INHALER INHALATION SCH ×2 (07:39→19:28)
[2018-01-20] MEDS: IPRATROPIUM-ALBUTEROL 3 ML NEB INHALATION SCH ×4 (07:39→19:28)
[2018-01-20] MEDS: PANTOPRAZOLE 40 MG TABLET PO SCH ×2 (08:17→17:30)
[2018-01-20] MEDS: MULTIVITAMINS, THERA 1 EACH TAB PO SCH (08:17)
[2018-01-20] MEDS: CALCIUM CARB-VIT D 250MG-125UN 1 EACH TAB PO SCH (08:17)
[2018-01-20] MEDS: THEOPHYLLINE 24 HOUR 200 MG CAP.ER.24H PO SCH ×2 (08:17→20:19)
[2018-01-20] MEDS: PREGABALIN 75 MG CAP PO SCH ×2 (08:22→20:22)
[2018-01-20] MEDS ORDERED: amLODIPine 10 MG TAB PO SCH (09:00)
[2018-01-20] MEDS ORDERED: VERAPAMIL SR 180 MG TABLET.ER PO SCH (09:00)
[2018-01-20 13:39] VITALS: BMI 15.9
--- NOTE | 2018-01-20 14:40 | P.GSCN ---
History of Present Illness Consult date: 01/20/18 Reason for Consult: Left sided Abdominal pain History of present illness: Is a 47-year-old female who was admitted to the hospital complaints of abdominal pain. Patient was seen in the emergency room. And on CAT scan found have some peripancreatic fluid as well as a right ureteral calculi. Patient states she has had pain in her left flank. He currently is hungry and is requesting a diet Past Medical History Past Medical History: Asthma, Cancer, Chest Pain / Angina, COPD, Eye Disorder, GERD/Reflux, Hyperlipidemia, Myocardial Infarction ([place]), Osteoarthritis ([place]), Pneumonia, Respiratory Disorder Additional Past Medical History / Comment(s): pastthoracic spine fractures T8-T9 , possible oseoporosis. End stage COPD , chronic hypoxic and hypercapnic respiratory failure, home O2 at 6L/NC and bipap at HS, steroid dependent, bronchitis, 1997 pt states she was told her EKG showed a past [place], cervical cancer with hysterectomy, PUD, carpal tunnel bilaterally, herniated discs C5-C6 and L5-L6, cervical/lumbar spondylosis, RLS, eczema, cataract L eye, tinnitis bilaterally, sinus problems. Last Myocardial Infarction Date:: UNK History of Any Multi-Drug Resistant Organisms: None Reported, MRSA Year Discovered:: 06/18/2015 MDRO Source:: SPUTUM Past Surgical History: Section, Cholecystectomy, Ear Surgery, Hysterectomy, Tubal Ligation Additional Past Surgical History / Comment(s): x 2, EGD, colonoscopy with benign polypectomy, R ear cyst with surgery.. Past Anesthesia/Blood Transfusion Reactions: No Reported Reaction Additional Past Anesthesia/Blood Transfusion Reaction / Comm: Pt has never recieved blood. Smoking Status: Current some day smoker - Past Family History Father Family Medical History: No Reported History Additional Family Medical History / Comment(s): WAS AN ALCOHOLIC Mother Family Medical History: Cancer Additional Family Medical History / Comment(s): AT AGE 54-BOWEL CANCER Medications and Allergies Home Medications Medication Instructions Recorded Confirmed Type Albuterol Inhaler [Ventolin Hfa 2 puff INHALATION RT-QID PRN 01/03/14 01/19/18 History Inhaler] Omeprazole [PriLOSEC] 40 mg PO BID 01/03/14 01/19/18 History Multivitamins, Thera [Multivitamin 1 tab PO DAILY 12/24/14 01/19/18 History (formulary)] risperiDONE 3 mg PO HS 12/24/14 01/19/18 History traZODone HCL 300 mg PO HS 12/24/14 01/19/18 History buPROPion SR [Wellbutrin SR] 150 mg PO HS 04/30/15 01/19/18 History Aspirin [Aspirin EC] 325 mg PO HS 03/24/16 01/19/18 History Budesonide-Formot 160-4.5 Mcg 2 puff INHALATION RT-BID puff 07/13/16 01/19/18 Rx [Symbicort 160-4.5 Mcg Inhaler] Ipratropium-Albuterol Nebulize 3 ml INHALATION RT-QID neb 01/20/17 01/19/18 Rx [Duoneb 0.5 mg-3 mg/3 ml Soln] Theophylline 24 Hour [Akhil-24] 200 mg PO BID 07/06/17 01/19/18 History rOPINIRole HCL [Requip] 1 mg PO HS 11/02/17 01/19/18 History Butalb/APAP/Caff 50-325-40Mg 1 tab PO Q8H PRN 12/21/17 01/19/18 History [Fioricet 50-325-40] Calcium Carb-Vit D 250Mg-125Un 1 tab PO DAILY 12/21/17 01/19/18 History [Oscal 250+D] Fluticasone Nasal [place] [Flonase 2 spray EA NOSTRIL DAILY 12/21/17 01/19/18 History Nasal [place]] Pregabalin [Lyrica] 150 mg PO BID 12/21/17 01/19/18 History Ipratropium-Albuterol Nebulize 3 ml INHALATION RT-Q2H PRN 12/29/17 01/19/18 Rx [Duoneb 0.5 mg-3 mg/3 ml Soln] ampul.neb Verapamil Sr [Isoptin Sr] 180 mg PO DAILY #30 tablet.er 12/29/17 01/19/18 Rx amLODIPine [Norvasc] 10 mg PO DAILY #30 tab 12/29/17 01/19/18 Rx hydrALAZINE HCL [Apresoline] 25 mg PO TID PRN #90 tab 12/29/17 01/19/18 Rx predniSONE 20 mg PO DAILY 01/19/18 01/19/18 History Allergies Allergy/AdvReac Type Severity Reaction Status Date / Time aripiprazole [From Abilify] Allergy Rash/Hives Verified 01/19/18 10:56 cephalexin [From Keflex] Allergy Unknown Verified 01/19/18 10:56 honey Allergy Rash/Hives Verified 01/19/18 10:56 methadone [Methadone] Allergy Itching Verified 01/19/18 10:56 naproxen Allergy Rash/Hives Verified 01/19/18 10:56 sulfamethoxazole Allergy Rash/Hives Verified 01/19/18 10:56 [From Bactrim] tetracycline [Tetracycline] Allergy Rash/Hives Verified 01/19/18 10:56 trimethoprim [From Bactrim] Allergy Rash/Hives Verified 01/19/18 10:56 adhesive tape AdvReac Rash/Hives Verified 01/19/18 10:56 tramadol HCl [From Ultram] AdvReac SEIZURES Verified 01/19/18 10:56 tromethamine AdvReac Nausea & Verified 01/19/18 10:56 Vomiting Surgical - Exam Vital Signs Temp Pulse Resp BP Pulse Ox 98.4 F 96 18 129/70 94 L 01/19/18 10:41 01/19/18 10:41 01/19/18 10:41 01/19/18 10:41 01/19/18 10:41 - General well developed, no distress - Eyes PERRL - ENT normal pinna - Neck no masses - Respiratory normal expansion - Cardiovascular Rhythm: regular - Abdomen Left flank pain just below the costal margin. There is no significant abdominal pain. There is no rebound or guarding. Abdomen: soft Results Right ureteral calculi causing mild right hydronephrosis. Small amount. Fluid. - Labs 01/19/18 10:50 01/19/18 10:50 Microbiology - Last 24 Hours (Table) 01/19/18 10:50 Blood Culture - Preliminary Blood No Growth after 24 hours Assessment and Plan Assessment: Left flank pain. Patient will be observed. She'll be started on a regular diet.
--- NOTE | 2018-01-20 16:47 | P.HPIM ---
History of Present Illness 47-year-old female presents emergency Department chief complaint abdominal pain. Patient states she's been having left-sided abdominal pain left flank pain for several weeks saw PCP today who sent her for CT. Patient went office and off a central back secondary to. Pancreatic fluid collection. They told her that she needs to see a surgeon. She's had a prior hysterectomy, cholecystectomy, sections. Patient denies any dysuria or hematuria. She denies any nausea vomiting. She does complain of pain states that she only takes Tylenol at home. Patient reports no fever no chills no chest pain or shortness breath. Patient normally is wearing oxygen which is not out of the usual for her. Surgery was consulted for this peripancreatic fluid and severe abdominal pain. Her lipase is essentially within normal limits is nothing by mouth or surgeries okay patient was started on diet. Patient is comparing of severe 8/10 pain in the left upper quadrant and radiating to the back. Patient is presently on Protonix. Patient does not normally gets admitted for COPD exacerbation patient has some baseline wheezing. Review of Systems REVIEW OF SYSTEMS: CONSTITUTIONAL: No fever, no malaise, no fatigue. HEENT: No recent visual problems or hearing problems. Denied any sore throat. CARDIOVASCULAR: No chest pain, orthopnea, PND, no palpitations, no syncope. PULMONARY: No shortness of breath, no cough, no hemoptysis. GASTROINTESTINAL: No diarrhea, no nausea, no vomiting. NEUROLOGICAL: No headaches, no weakness, no numbness. HEMATOLOGICAL: Denies any bleeding or petechiae. GENITOURINARY: Denies any burning micturition, frequency, or urgency. MUSCULOSKELETAL/RHEUMATOLOGICAL: Denies any joint pain, swelling, or any muscle pain. ENDOCRINE: Denies any polyuria or polydipsia. The rest of the 14-point review of systems is negative. Past Medical History Past Medical History: Asthma, Cancer, Chest Pain / Angina, COPD, Eye Disorder, GERD/Reflux, Hyperlipidemia, Myocardial Infarction ([place]), Osteoarthritis (OA), Pneumonia, Respiratory Disorder Additional Past Medical History / Comment(s): pastthoracic spine fractures T8-T9 , possible oseoporosis. End stage COPD , chronic hypoxic and hypercapnic respiratory failure, home O2 at 6L/[place] and bipap at HS, steroid dependent, bronchitis, 1997 pt states she was told her EKG showed a past [place], cervical cancer with hysterectomy, PUD, carpal tunnel bilaterally, herniated discs C5-C6 and L5-L6, cervical/lumbar spondylosis, RLS, eczema, cataract L eye, tinnitis bilaterally, sinus problems. Last Myocardial Infarction Date:: UNK History of Any Multi-Drug Resistant Organisms: None Reported, MRSA Date of last positivie culture/infection: 06/18/2015 MDRO Source:: SPUTUM Past Surgical History: Section, Cholecystectomy, Ear Surgery, Hysterectomy, Tubal Ligation Additional Past Surgical History / Comment(s): x 2, EGD, colonoscopy with benign polypectomy, R ear cyst with surgery.. Past Anesthesia/Blood Transfusion Reactions: No Reported Reaction Additional Past Anesthesia/Blood Transfusion Reaction / Comment(s): Pt has never recieved blood. Smoking Status: Current some day smoker - Past Family History Father Family Medical History: No Reported History Additional Family Medical History / Comment(s): WAS AN ALCOHOLIC Mother Family Medical History: Cancer Additional Family Medical History / Comment(s): AT AGE 54-BOWEL CANCER Medications and Allergies Home Medications Medication Instructions Recorded Confirmed Type Albuterol Inhaler [Ventolin Hfa 2 puff INHALATION RT-QID PRN 01/03/14 01/19/18 History Inhaler] Omeprazole [PriLOSEC] 40 mg PO BID 01/03/14 01/19/18 History Multivitamins, Thera [Multivitamin 1 tab PO DAILY 12/24/14 01/19/18 History (formulary)] risperiDONE 3 mg PO HS 12/24/14 01/19/18 History traZODone HCL 300 mg PO HS 12/24/14 01/19/18 History buPROPion SR [Wellbutrin SR] 150 mg PO HS 04/30/15 01/19/18 History Aspirin [Aspirin EC] 325 mg PO HS 03/24/16 01/19/18 History Budesonide-Formot 160-4.5 Mcg 2 puff INHALATION RT-BID puff 07/13/16 01/19/18 Rx [Symbicort 160-4.5 Mcg Inhaler] Ipratropium-Albuterol Nebulize 3 ml INHALATION RT-QID neb 01/20/17 01/19/18 Rx [Duoneb 0.5 mg-3 mg/3 ml Soln] Theophylline 24 Hour [Akhil-24] 200 mg PO BID 07/06/17 01/19/18 History rOPINIRole HCL [Requip] 1 mg PO HS 11/02/17 01/19/18 History Butalb/APAP/Caff 50-325-40Mg 1 tab PO Q8H PRN 12/21/17 01/19/18 History [Fioricet 50-325-40] Calcium Carb-Vit D 250Mg-125Un 1 tab PO DAILY 12/21/17 01/19/18 History [Oscal 250+D] Fluticasone Nasal [place] [Flonase 2 spray EA NOSTRIL DAILY 12/21/17 01/19/18 History Nasal [place]] Pregabalin [Lyrica] 150 mg PO BID 12/21/17 01/19/18 History Ipratropium-Albuterol Nebulize 3 ml INHALATION RT-Q2H PRN 12/29/17 01/19/18 Rx [Duoneb 0.5 mg-3 mg/3 ml Soln] ampul.neb Verapamil Sr [Isoptin Sr] 180 mg PO DAILY #30 tablet.er 12/29/17 01/19/18 Rx amLODIPine [Norvasc] 10 mg PO DAILY #30 tab 12/29/17 01/19/18 Rx hydrALAZINE HCL [Apresoline] 25 mg PO TID PRN #90 tab 12/29/17 01/19/18 Rx predniSONE 20 mg PO DAILY 01/19/18 01/19/18 History Allergies Allergy/AdvReac Type Severity Reaction Status Date / Time aripiprazole [From Abilify] Allergy Rash/Hives Verified 01/19/18 10:56 cephalexin [From Keflex] Allergy Unknown Verified 01/19/18 10:56 honey Allergy Rash/Hives Verified 01/19/18 10:56 methadone [Methadone] Allergy Itching Verified 01/19/18 10:56 naproxen Allergy Rash/Hives Verified 01/19/18 10:56 sulfamethoxazole Allergy Rash/Hives Verified 01/19/18 10:56 [From Bactrim] tetracycline [Tetracycline] Allergy Rash/Hives Verified 01/19/18 10:56 trimethoprim [From Bactrim] Allergy Rash/Hives Verified 01/19/18 10:56 adhesive tape AdvReac Rash/Hives Verified 01/19/18 10:56 tramadol HCl [From Ultram] AdvReac SEIZURES Verified 01/19/18 10:56 tromethamine AdvReac Nausea & Verified 01/19/18 10:56 Vomiting Physical Exam Vitals: Vital Signs Temp Pulse Pulse Pulse Resp BP BP 01/20/18 15:39 76 01/20/18 15:37 68 16 01/20/18 15:30 75 01/20/18 14:48 98.7 F 68 16 105/68 01/20/18 12:09 76 01/20/18 11:57 72 01/20/18 08:02 92 01/20/18 08:00 64 18 01/20/18 07:40 92 01/20/18 05:32 98.1 F 64 18 136/82 01/19/18 22:51 98.1 F 65 18 128/79 01/19/18 19:13 90 16 01/19/18 19:00 90 16 01/19/18 18:07 97.9 F 66 18 139/61 01/19/18 17:39 97.7 F 80 19 152/90 Pulse Ox 01/20/18 15:39 01/20/18 15:37 01/20/18 15:30 01/20/18 14:48 100 01/20/18 12:09 01/20/18 11:57 01/20/18 08:02 01/20/18 08:00 01/20/18 07:40 01/20/18 05:32 100 01/19/18 22:51 100 01/19/18 19:13 01/19/18 19:00 01/19/18 18:07 01/19/18 17:39 98 Intake and Output 01/20/18 01/20/18 01/20/18 06:59 14:59 22:59 Other: # Voids 2 3 Weight 42 kg 42 kg PHYSICAL EXAMINATION: GENERAL: The patient is alert and oriented x3, not in any acute distress. Well developed, well nourished. HEENT: Pupils are round and equally reacting to light. EOMI. No scleral icterus. No conjunctival pallor. Normocephalic, atraumatic. No pharyngeal erythema. No thyromegaly. CARDIOVASCULAR: S1 and S2 present. No murmurs, rubs, or gallops. PULMONARY: Chest is clear to auscultation, no wheezing or crackles. ABDOMEN: Soft, left flank left upper abdomen subjective tenderness nondistended , normoactive bowel sounds. No palpable organomegaly. MUSCULOSKELETAL: No joint swelling or deformity. EXTREMITIES: No cyanosis, clubbing, or pedal edema. NEUROLOGICAL: Gross neurological examination did not reveal any focal deficits. SKIN: No rashes. Results CBC & Chem 7: 01/19/18 10:50 01/19/18 10:50 Labs: Microbiology - Last 24 Hours (Table) 01/19/18 10:50 Blood Culture - Preliminary Blood No Growth after 24 hours Thrombosis Risk Factor Assmnt - Choose All That Apply Each Factor Represents 1 point: Abnormal pulmonary function (COPD), Age 41-60 years Thrombosis Risk Factor Assessment Total Risk Factor Score: 2 Thrombosis Risk Factor Assessment Level: Low Risk Assessment and Plan Plan: -Abdominal pain with peripancreatic fluid: Patient does not appear to have any elevated lipase, significance of this peripancreatic fluid is unknown patient will undergo evaluation by surgery concerning his pain, I'll keep her here for her surgical evaluation. -COPD without any acute exacerbation, patient also is wheezing which is her baseline patient will be resumed and continued on her inhaled steroids patient does have advanced end-stage COPD with chronic respiratory failure uses 6 L of onset at home along with ventilator support at nighttime -Chronic low back pain -Continue recording use -Bipolar disorder 11 hyperlipidemia -History of cervical cancer which is in remission. -cachexia without any protein calorie malnutrition secondary to COPD
[2018-01-20] MEDS: traZODone HCL 100 MG TAB PO SCH (20:19)
[2018-01-20] MEDS: buPROPion SR 150 MG TABLET.ER PO SCH (20:19)
[2018-01-20] MEDS: risperiDONE 1 MG TAB PO SCH (20:20)
[2018-01-20] MEDS: SENNOSIDES-DOCUSATE SODIUM 1 EACH TAB PO SCH (20:22)
[2018-01-20] MEDS: IPRATROPIUM-ALBUTEROL 3 ML NEB INHALATION PRN (23:36)
[2018-01-21] MEDS: HYDROmorphone 0.5 MG/0.5 ML SYRINGE IVP PRN ×8 (00:32→22:26)
[2018-01-21] MEDS: IPRATROPIUM-ALBUTEROL 3 ML NEB INHALATION PRN (03:45)
[2018-01-21] MEDS: SODIUM CHLORIDE 0.9% 1,000 ML IV SCH ×2 (04:55→17:40)
[2018-01-21] MEDS: IPRATROPIUM-ALBUTEROL 3 ML NEB INHALATION SCH ×4 (08:16→20:22)
[2018-01-21] MEDS: SYMBICORT 160-4.5 MCG INHALER INHALATION SCH ×2 (08:16→20:22)
[2018-01-21 08:27] LABS: Anion Gap 9 mmol/L; Blood Urea Nitrogen 15 mg/dL (7-17); Calcium 9.4 mg/dL (8.4-10.2); Carbon Dioxide 31 mmol/L (22-30); Chloride 98 mmol/L (98-107); Glucose 103 mg/dL (74-99); Potassium 4.2 mmol/L (3.5-5.1); Sodium 138 mmol/L (137-145)
[2018-01-21] MEDS: THEOPHYLLINE 24 HOUR 200 MG CAP.ER.24H PO SCH ×2 (08:37→20:27)
[2018-01-21] MEDS: MULTIVITAMINS, THERA 1 EACH TAB PO SCH (08:37)
[2018-01-21] MEDS: CALCIUM CARB-VIT D 250MG-125UN 1 EACH TAB PO SCH (08:37)
[2018-01-21] MEDS: PANTOPRAZOLE 40 MG TABLET PO SCH ×2 (08:37→17:38)
[2018-01-21] MEDS: PREGABALIN 75 MG CAP PO SCH ×2 (08:37→20:27)
[2018-01-21] MEDS: VERAPAMIL SR 240 MG TABLET.ER PO SCH (08:37)
[2018-01-21] MEDS: HYDROcodone/APAP 5-325MG 1 EACH TAB PO PRN ×2 (08:41→15:43)
[2018-01-21 09:03] LABS: Anisocytosis Slight; HCT 39.5 % (34.0-46.0); HGB 12.9 gm/dL (11.4-16.0); MCHC 32.6 g/dL (31.0-37.0); MCV 89.2 fL (80.0-100.0); Mean Platelet Volume 6.8; Platelet Count 413 k/uL (150-450); RBC 4.43 m/uL (3.80-5.40); RDW 16.7 % (11.5-15.5); WBC 6.4 k/uL (3.8-10.6)
--- NOTE | 2018-01-21 11:24 | P.PN ---
Subjective Progress Note Date: 01/21/18 Patient is a 47-year-old female who presented with right and left flank pain. CT was consistent with possible stones additional questionable findings of peripancreatic fluid. She is tolerating diet. No nausea or vomiting. No fevers or chills. Her pain is fair. She has known history of COPD. She complains primarily of back pain. No reports of abdominal pain Objective - Vital Signs Vital signs: Vital Signs Temp 99.1 F 01/21/18 07:00 Pulse 76 01/21/18 08:31 Resp 20 01/21/18 07:00 BP 121/80 01/21/18 07:00 Pulse Ox 96 01/21/18 07:00 Intake & Output 01/20/18 01/21/18 01/21/18 18:59 06:59 18:59 Intake Total 700 Balance 700 Weight 42 kg 48 kg Intake: Oral 700 Other: # Voids 3 1 - Exam GENERAL: Well developed and in no acute distress. Pleasant. HEENT: No sclera icterus. Extraocular movements grossly intact. Moist buccal mucosa. Head is atraumatic, normocephalic. Hears conversational speech. No nasal drainage. NECK: Supple without lymphadenopathy. CHEST: Non-labored respirations and equal bilateral excursions. CARDIOVASCULAR: Regular rate and rhythm. Palpable 2+ radial pulses. ABDOMEN: Soft, nontender. Nondistended. Tender along the bilateral flanks. MUSCULOSKELETAL: No clubbing, cyanosis or edema. NEUROLOGIC: No focal or lateralizing signs. PSYCH: Appropriate affect. Alert and oriented to person, place and time. SKIN: Good skin turgor. Well perfused. - Labs CBC & Chem 7: 01/21/18 07:38 01/21/18 07:38 Labs: Abnormal Lab Results - Last 24 Hours (Table) 01/21/18 01/21/18 Range/Units 07:38 07:38 RDW 16.7 H (11.5-15.5) % Carbon Dioxide 31 H (22-30) mmol/L Creatinine 0.45 L (0.52-1.04) mg/dL Glucose 103 H (74-99) mg/dL Microbiology - Last 24 Hours (Table) 01/19/18 10:50 Blood Culture - Preliminary Blood No Growth after 24 hours Assessment and Plan (1) Flank pain, acute Current Visit: Yes Status: Acute Code(s): R10.9 - UNSPECIFIED ABDOMINAL PAIN SNOMED Code(s): 620695554 (2) Kidney stones Current Visit: Yes Status: Acute Code(s): N20.0 - CALCULUS OF KIDNEY SNOMED Code(s): 91199576 (3) Abnormal CT of the abdomen Current Visit: Yes Status: Acute Code(s): R93.5 - ABN FINDINGS ON DX IMAGING OF ABD REGIONS, INC RETROPERITON SNOMED Code(s): 56207446482226765 (4) Acute exacerbation of chronic obstructive airways disease Current Visit: No Status: Acute Code(s): J44.1 - CHRONIC OBSTRUCTIVE PULMONARY DISEASE W (ACUTE) EXACERBATION SNOMED Code(s): 484991435 Plan: 1. Clinically, she has no abdominal pain. Most of her complaints are of flank and back pain. 2. She has been afebrile and has no leukocytosis. 3. Her CT of the abdomen was suboptimal for intestinal or mucosal abnormalities. May benefit from repeat computed tomography scan however with both oral and IV contrast should her pain persists tomorrow. 4. No surgical intervention.
--- NOTE | 2018-01-21 12:59 | P.PN ---
Subjective Progress Note Date: 01/21/18 Principal diagnosis: Abdominal pain This is a 47-year-old female patient who presented to the emergency department with left-sided flank pain for approximately 2 weeks. The patient saw her primary care physician and he sent her for a CAT scan of the abdomen and pelvis. It did show evidence of right sided ureteral stones and mild hydronephrosis. Patient mostly describes her pain on the left flank area. She is responding well to pain medications. Urinalysis shows mild leukocytosis. She's been afebrile. Surgical evaluation is appreciated. She had a low-grade temp of 99 1 yesterday likely due to atelectasis. She denies any chest discomfort or shortness of breath. Objective - Vital Signs Vital signs: Vital Signs Temp 99.1 F 01/21/18 07:00 Pulse 76 01/21/18 11:55 Resp 20 01/21/18 07:00 BP 121/80 01/21/18 07:00 Pulse Ox 96 01/21/18 07:00 Intake & Output 01/20/18 01/21/18 01/21/18 18:59 06:59 18:59 Intake Total 700 Balance 700 Weight 42 kg 48 kg Intake: Oral 700 Other: # Voids 3 1 - Constitutional General appearance: Present: thin - EENT Eyes: Present: normal appearance Ears: bilateral: normal - Respiratory Respiratory: bilateral: CTA - Cardiovascular Rhythm: regular - Gastrointestinal General gastrointestinal: Present: normal bowel sounds - Integumentary Integumentary: Present: normal - Neurologic Neurologic: Present: CNII-XII intact - Musculoskeletal Musculoskeletal Comment(s): Left flank pain, tender upon palpation Musculoskeletal: Present: gait normal - Allied health notes Allied health notes reviewed: nursing - Labs CBC & Chem 7: 01/21/18 07:38 01/21/18 07:38 Labs: Abnormal Lab Results - Last 24 Hours (Table) 01/21/18 01/21/18 Range/Units 07:38 07:38 RDW 16.7 H (11.5-15.5) % Carbon Dioxide 31 H (22-30) mmol/L Creatinine 0.45 L (0.52-1.04) mg/dL Glucose 103 H (74-99) mg/dL Microbiology - Last 24 Hours (Table) 01/19/18 10:50 Blood Culture - Preliminary Blood No Growth after 24 hours Assessment and Plan Assessment: Left flank pain Peripancreatic fluid COPD without exacerbation Chronic lower back pain Tobacco abuse Bipolar disorder Hyperlipidemia History of cervical cancer in remission Plan: Continue with IV fluids and pain medication as needed. The patient has mild evidence of leukocytes and bacteria as well as blood in her urine but I do not feel this is acute urinary tract infection. She is not currently on any antibiotics. WBC count is normal and she is afebrile. She does not have any symptoms of dysuria or urgency. Surgical evaluation appreciated. Repeat labs in morning and continue to follow her closely.
[2018-01-21] MEDS: buPROPion SR 150 MG TABLET.ER PO SCH (20:27)
[2018-01-21] MEDS: traZODone HCL 100 MG TAB PO SCH (20:28)
[2018-01-21] MEDS: SENNOSIDES-DOCUSATE SODIUM 1 EACH TAB PO SCH (20:28)
[2018-01-21] MEDS: risperiDONE 1 MG TAB PO SCH (20:38)
[2018-01-22] MEDS: IPRATROPIUM-ALBUTEROL 3 ML NEB INHALATION PRN ×2 (00:20→03:57)
[2018-01-22] MEDS: HYDROcodone/APAP 5-325MG 1 EACH TAB PO PRN (00:40)
[2018-01-22] MEDS: HYDROmorphone 0.5 MG/0.5 ML SYRINGE IVP PRN ×6 (03:59→23:15)
[2018-01-22] MEDS: VERAPAMIL SR 240 MG TABLET.ER PO SCH (07:52)
[2018-01-22] MEDS: THEOPHYLLINE 24 HOUR 200 MG CAP.ER.24H PO SCH ×2 (07:52→21:05)
[2018-01-22] MEDS: PANTOPRAZOLE 40 MG TABLET PO SCH ×2 (07:52→17:07)
[2018-01-22] MEDS: CALCIUM CARB-VIT D 250MG-125UN 1 EACH TAB PO SCH (07:52)
[2018-01-22] MEDS: MULTIVITAMINS, THERA 1 EACH TAB PO SCH (07:53)
[2018-01-22] MEDS: PREGABALIN 75 MG CAP PO SCH ×2 (07:56→21:03)
[2018-01-22] MEDS: IPRATROPIUM-ALBUTEROL 3 ML NEB INHALATION SCH ×4 (07:57→20:05)
[2018-01-22] MEDS: SYMBICORT 160-4.5 MCG INHALER INHALATION SCH ×2 (07:57→20:05)
[2018-01-22] MEDS: SODIUM CHLORIDE 0.9% 1,000 ML IV SCH ×2 (10:46→21:05)
--- NOTE | 2018-01-22 13:49 | P.PN ---
Subjective 47-year-old female patient who presented to the emergency department with left-sided flank pain for approximately 2 weeks. The patient saw her primary care physician and he sent her for a CAT scan of the abdomen and pelvis. It did show evidence of right sided ureteral stones and mild hydronephrosis. Patient mostly describes her pain on the left flank area. She is responding well to pain medications. Urinalysis shows mild leukocytosis. She's been afebrile. Surgical evaluation is appreciated. She had a low-grade temp of 99 1 yesterday likely due to atelectasis. She denies any chest discomfort or shortness of breath. 01/22/2018 Patient is still complaining of severe pain etiology is not clear at this point of time may be a musculoskeletal in origin and patient may have myopathy related to steroids will obtain CK. Possibly of discharge tomorrow. Constitutional: Denied any fatigue denied any fever. Cardio vascular: denied any chest pain, palpitations Gastrointestinal denied any nausea vomiting, can you to complain of left upper quadrant pain Pulmonary: Denied any shortness of breath cough Neurologic denied any new focal deficits Objective - Vital Signs Vital signs: Vital Signs Temp 98.0 F 01/22/18 07:00 Pulse 92 01/22/18 11:57 Resp 16 01/22/18 08:00 BP 103/66 01/22/18 07:00 Pulse Ox 100 01/22/18 07:00 Intake & Output 01/21/18 01/22/18 01/22/18 18:59 06:59 18:59 Intake Total 200 Balance 200 Weight 46 kg Intake: Oral 200 Other: # Voids 2 1 # Bowel Movements 0 - Exam PHYSICAL EXAMINATION: GENERAL: The patient is alert and oriented x3, not in any acute distress. Well developed, well nourished. HEENT: Pupils are round and equally reacting to light. EOMI. No scleral icterus. No conjunctival pallor. Normocephalic, atraumatic. No pharyngeal erythema. No thyromegaly. CARDIOVASCULAR: S1 and S2 present. No murmurs, rubs, or gallops. PULMONARY: Chest is clear to auscultation, no wheezing or crackles. ABDOMEN: Soft, left flank left upper abdomen subjective tenderness nondistended , normoactive bowel sounds. No palpable organomegaly. MUSCULOSKELETAL: No joint swelling or deformity. EXTREMITIES: No cyanosis, clubbing, or pedal edema. NEUROLOGICAL: Gross neurological examination did not reveal any focal deficits. SKIN: No rashes. - Labs CBC & Chem 7: 01/21/18 07:38 01/21/18 07:38 Labs: Microbiology - Last 24 Hours (Table) 01/19/18 10:50 Blood Culture - Preliminary Blood No Growth after 72 hours Assessment and Plan Plan: -Abdominal pain with peripancreatic fluid: Patient does not appear to have any elevated lipase, patient was evaluated by surgery. No further intervention at this point of time patient is able to tolerate diet well patient may have musculoskeletal pain and obtain CK with concerns of steroid myopathy -COPD without any acute exacerbation, patient also is wheezing which is her baseline patient will be resumed and continued on her inhaled steroids patient does have advanced end-stage COPD with chronic respiratory failure uses 6 L of onset at home along with ventilator support at nighttime -Chronic low back pain -Continue recording use -Bipolar disorder -hyperlipidemia -History of cervical cancer which is in remission. -cachexia without any protein calorie malnutrition secondary to COPD
--- NOTE | 2018-01-22 13:57 | P.PN ---
Subjective Progress Note Date: 01/22/18 Patient is a 47-year-old female who presented with right and left flank pain. CT was consistent with possible stones additional questionable findings of peripancreatic fluid. Although she is tolerating diet, she still complains of left upper back pain. She denies any abdominal pain. Previous CT scan was without contrast. Objective - Vital Signs Vital signs: Vital Signs Temp 98.0 F 01/22/18 07:00 Pulse 92 01/22/18 11:57 Resp 16 01/22/18 08:00 BP 103/66 01/22/18 07:00 Pulse Ox 100 01/22/18 07:00 Intake & Output 01/21/18 01/22/18 01/22/18 18:59 06:59 18:59 Intake Total 200 Balance 200 Weight 46 kg Intake: Oral 200 Other: # Voids 2 1 # Bowel Movements 0 - Exam GENERAL: Well developed and in no acute distress. Pleasant. HEENT: No sclera icterus. Extraocular movements grossly intact. Moist buccal mucosa. Head is atraumatic, normocephalic. Hears conversational speech. No nasal drainage. NECK: Supple without lymphadenopathy. CHEST: Non-labored respirations and equal bilateral excursions. CARDIOVASCULAR: Regular rate and rhythm. Palpable 2+ radial pulses. ABDOMEN: Soft, nontender. Nondistended. MUSCULOSKELETAL: No clubbing, cyanosis or edema. Pain along the left upper back. NEUROLOGIC: No focal or lateralizing signs. PSYCH: Appropriate affect. Alert and oriented to person, place and time. SKIN: Good skin turgor. Well perfused. - Labs CBC & Chem 7: 01/21/18 07:38 01/21/18 07:38 Labs: Microbiology - Last 24 Hours (Table) 01/19/18 10:50 Blood Culture - Preliminary Blood No Growth after 72 hours Assessment and Plan (1) Flank pain, acute Current Visit: Yes Status: Acute Code(s): R10.9 - UNSPECIFIED ABDOMINAL PAIN SNOMED Code(s): 963225106 (2) Kidney stones Current Visit: Yes Status: Acute Code(s): N20.0 - CALCULUS OF KIDNEY SNOMED Code(s): 56833529 (3) Abnormal CT of the abdomen Current Visit: Yes Status: Acute Code(s): R93.5 - ABN FINDINGS ON DX IMAGING OF ABD REGIONS, INC RETROPERITON SNOMED Code(s): 51732131789758989 (4) Acute exacerbation of chronic obstructive airways disease Current Visit: No Status: Acute Code(s): J44.1 - CHRONIC OBSTRUCTIVE PULMONARY DISEASE W (ACUTE) EXACERBATION SNOMED Code(s): 266923535 Plan: 1. Recommend proceeding with computed tomography scan with both oral and IV contrast to elucidate cause for pain. 2. Otherwise, continue with diet. 3. No surgical intervention.
[2018-01-22] MEDS: IOPAMIDOL-300 CONTRAST 30 ML VIAL (ORAL USE) PO PRN ×2 (14:21→15:26)
--- NOTE | 2018-01-22 17:13 | CT ---
EXAMINATION TYPE: CT abdomen pelvis w con DATE OF EXAM: 01/22/2018 HISTORY: Left side abd pain CT DLP: 446.5mGycm Automated Exposure Control for Dose Reduction was Utilized. CONTRAST: CT scan of the abdomen and pelvis is performed with IV Contrast, patient injected with 100ml mL of Is ovue 300. COMPARISON: CT abdomen and pelvis from 3 days ago FINDINGS: LUNG BASES: No significant abnormality is appreciated. LIVER/GB: Cholecystectomy clips are redemonstrated. PANCREAS: No significant abnormality is seen. SPLEEN: No significant abnormality is seen. ADRENALS: No significant abnormality is seen. KIDNEYS: There is symmetric cortical medullary uptake and excretion from both kidneys without evidenc e of hydronephrosis bilaterally BOWEL: The oral contrast does not reach colonic level making evaluation slightly suboptimal. There is low lying cecum into the right pelvis. There is small bowel feces sign in the terminal ileum. There is no suspicious dilatation of small or large bowel loops. Findings are consistent with delayed passa ge of ingested material 2 colonic level. Contrast filled duodenal diverticulum along medial aspect se cond portion measuring 2.1 cm coronal image 40 is confirmed. There is mild to moderate prominence of fecal material throughout the right and transverse colon. UTERUS/ADNEXA: Uterus is surgically absent or markedly atrophic in appearance. LYMPH NODES: No greater than 1cm abdominal or pelvic lymph nodes are appreciated. OSSEOUS STRUCTURES: No significant abnormality is seen. OTHER: No significant additional abnormality is seen. IMPRESSION: 1. 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 No abscess is noted. 2. Overall nonobstructive bowel gas pattern. There is mild to moderate proximal colonic fecal stasis noted.
[2018-01-22] MEDS: traZODone HCL 100 MG TAB PO SCH (21:04)
[2018-01-22] MEDS: buPROPion SR 150 MG TABLET.ER PO SCH (21:04)
[2018-01-22] MEDS: SENNOSIDES-DOCUSATE SODIUM 1 EACH TAB PO SCH (21:04)
[2018-01-22] MEDS: risperiDONE 1 MG TAB PO SCH (21:05)
[2018-01-23 00:47] VITALS: RESP 18
[2018-01-23] MEDS: HYDROmorphone 0.5 MG/0.5 ML SYRINGE IVP PRN ×3 (04:09→11:52)
[2018-01-23] MEDS: IPRATROPIUM-ALBUTEROL 3 ML NEB INHALATION PRN (04:26)
[2018-01-23 06:18] VITALS: BP 132/71; TEMP 97.7
[2018-01-23] MEDS: IPRATROPIUM-ALBUTEROL 3 ML NEB INHALATION SCH ×2 (07:46→11:41)
[2018-01-23] MEDS: SYMBICORT 160-4.5 MCG INHALER INHALATION SCH (07:46)
[2018-01-23] MEDS: PANTOPRAZOLE 40 MG TABLET PO SCH (08:07)
[2018-01-23] MEDS: CALCIUM CARB-VIT D 250MG-125UN 1 EACH TAB PO SCH (08:07)
[2018-01-23] MEDS: THEOPHYLLINE 24 HOUR 200 MG CAP.ER.24H PO SCH (08:07)
[2018-01-23] MEDS: MULTIVITAMINS, THERA 1 EACH TAB PO SCH (08:07)
[2018-01-23] MEDS: VERAPAMIL SR 240 MG TABLET.ER PO SCH (08:07)
[2018-01-23] MEDS: PREGABALIN 75 MG CAP PO SCH (08:07)
[2018-01-23] MEDS: SODIUM CHLORIDE 0.9% 1,000 ML IV SCH (10:33)
--- NOTE | 2018-01-23 11:11 | P.PN ---
<Ira Kincaid M - Last Filed: 01/23/18 11:00> Subjective Progress Note Date: 01/23/18 Patient seen and evaluated and no events. Patient does report an improvement in the left upper back pain patient just returned from having a computed tomography scan of the abdomen pelvis. The results were reviewed by Dr. Pineda. Discussed with patient. Findings per CT report duodenal diverticulum confirmed in the upper to mid abdomen no abscess noted mild-to- moderate: Fecal stasis noted the temp this morning 97.7 no nausea no vomiting Objective - Vital Signs Vital signs: Vital Signs Temp 97.7 F 01/23/18 05:50 Pulse 92 01/23/18 07:57 Resp 18 01/23/18 05:50 BP 132/71 01/23/18 05:50 Pulse Ox 93 L 01/23/18 07:47 Intake & Output 01/22/18 01/23/18 01/23/18 18:59 06:59 18:59 Intake Total 400 Balance 400 Weight 46.5 kg Intake: Oral 400 Other: # Voids 2 2 - Exam Physical exam 47-year-old female sitting up in bed does not appear in any acute distress Lungs diminished at the bases otherwise adequate air movement Heart S1-S2 audible regular Abdomen no facial grimacing with palpitation to the abdominal wall patient states she has discomfort left upper back has improved no nausea no vomiting Extremities no edema - Labs CBC & Chem 7: 01/21/18 07:38 01/21/18 07:38 Labs: Microbiology - Last 24 Hours (Table) 01/19/18 10:50 Blood Culture - Preliminary Blood No Growth after 72 hours Assessment and Plan Assessment: Impression COPD with no evidence of an acute exacerbation Bipolar disorder Computed tomography scan abdomen pelvis January 22 report indicates diverticula diverticulum confirmed in the mid upper abdomen no abscess noted Present on admission left upper flank pain suspect muscle skeletal improved Plan No evidence of an acute surgical abdomen From a surgical perspective patient could be discharged home defer to the timing of the discharge to the attending Home meds as appropriate Will sign off and re-eval as needed The above impression and plan of care have been discussed and directed by signing physician. Ira Kincaid nurse practitioner acting as scribe for signing physician. <Ariana Pineda - Last Filed: 01/23/18 14:07> Objective - Vital Signs Vital signs: Vital Signs Temp 97.7 F 01/23/18 05:50 Pulse 88 01/23/18 11:52 Resp 18 01/23/18 05:50 BP 132/71 01/23/18 05:50 Pulse Ox 93 L 01/23/18 07:47 Intake & Output 01/22/18 01/23/18 01/23/18 18:59 06:59 18:59 Intake Total 400 Balance 400 Weight 46.5 kg Intake: Oral 400 Other: # Voids 2 2 - Labs CBC & Chem 7: 01/21/18 07:38 01/21/18 07:38 Labs: Microbiology - Last 24 Hours (Table) 01/19/18 10:50 Blood Culture - Preliminary Blood No Growth after 96 hours Assessment and Plan (1) Flank pain, acute Status: Acute Code(s): R10.9 - UNSPECIFIED ABDOMINAL PAIN SNOMED Code(s): 837779695 (2) Kidney stones Status: Acute Code(s): N20.0 - CALCULUS OF KIDNEY SNOMED Code(s): 31704710 (3) Abnormal CT of the abdomen Status: Acute Code(s): R93.5 - ABN FINDINGS ON DX IMAGING OF ABD REGIONS, INC RETROPERITON SNOMED Code(s): 55920932875891372 (4) Acute exacerbation of chronic obstructive airways disease Status: Acute Code(s): J44.1 - CHRONIC OBSTRUCTIVE PULMONARY DISEASE W (ACUTE ) EXACERBATION SNOMED Code(s): 317220113
[2018-01-23 11:42] VITALS: PULSE 88
--- NOTE | 2018-01-23 13:03 | P.DS ---
Providers Date of admission: 01/19/18 13:42 Expected date of discharge: 01/23/18 Attending physician: Italo Olivas Consults: 01/19/18 13:24 Consult Physician Stat Consulting Provider: Ariana Pineda Consult Reason/Comments: peripancreatic fluid collection Do you want consulting provider notified?: Yes Primary care physician: Italo John Hospital Course: Final Diagnoses: -Abdominal pain with peripancreatic fluid: Patient does not appear to have any elevated lipase, patient was evaluated by surgery. No further intervention at this point of time patient is able to tolerate diet well patient may have musculoskeletal pain -COPD without any acute exacerbation, advanced end-stage COPD with chronic respiratory failure uses 6 L of onset at home along with BIpap at nighttime -Chronic low back pain -Continue recording use -Bipolar disorder -hyperlipidemia -History of cervical cancer which is in remission. -cachexia without any protein calorie malnutrition secondary to COPD Hospital course:47-year-old female patient who presented to the emergency department with left-sided flank pain for approximately 2 weeks. The patient saw her primary care physician and he sent her for a CAT scan of the abdomen and pelvis. It did show evidence of right sided ureteral stones and mild hydronephrosis. Patient mostly describes her pain on the left flank area. She is responding well to pain medications. Urinalysis shows mild leukocytosis. She's been afebrile. Evaluated by surgery, with no surgical intervention recommended at this time. CT report duodenal diverticulum in the upper to mid abdomen, no abscess with mild to moderate fecal stasis. Significant clinical improvement. Cleared for surgery for discharge. Patient is being discharged home in a stable condition with guarded prognosis. PHYSICAL EXAM: GENERAL: Patient is alert and oriented 3, sitting up in bed, no acute distress CARDIOVASCULAR: S1, S2 muffled. No murmur RESPIRATION: Breath sounds diminished in the bases. ABDOMEN: Soft, nontender . No guarding. no masses palpable. Bowel sounds heard. NERVOUS SYSTEM: No focal deficits. The impression and plan of care has been dictated as directed. : I performed a history and examination of this patient, discussed the same with the dictator. I agree with the dictator's note ,documented as a scribe. Any additional findings or plans will be noted. Time taken: 35 minutes Patient Condition at Discharge: Stable Plan - Discharge Summary Discharge Rx Participant: Yes New Discharge Prescriptions: New Verapamil Sr [Isoptin Sr] 240 mg PO DAILY #30 tablet.er Continue Omeprazole [PriLOSEC] 40 mg PO BID Albuterol Inhaler [Ventolin Hfa Inhaler] 2 puff INHALATION RT-QID PRN PRN Reason: Shortness Of Breath Multivitamins, Thera [Multivitamin (formulary)] 1 tab PO DAILY risperiDONE 3 mg PO HS traZODone HCL 300 mg PO HS buPROPion SR [Wellbutrin SR] 150 mg PO HS Aspirin [Aspirin EC] 325 mg PO HS Budesonide-Formot 160-4.5 Mcg [Symbicort 160-4.5 Mcg Inhaler] 2 puff INHALATION RT-BID puff Ipratropium-Albuterol Nebulize [Duoneb 0.5 mg-3 mg/3 ml Soln] 3 ml INHALATION RT-QID neb Theophylline 24 Hour [Akhil-24] 200 mg PO BID rOPINIRole HCL [Requip] 1 mg PO HS Pregabalin [Lyrica] 150 mg PO BID Fluticasone Nasal [place] [Flonase Nasal [place]] 2 spray EA NOSTRIL DAILY Butalb/APAP/Caff 50-325-40Mg [Fioricet 50-325-40] 1 tab PO Q8H PRN PRN Reason: Migraine Headache Calcium Carb-Vit D 250Mg-125Un [Oscal 250+D] 1 tab PO DAILY hydrALAZINE HCL [Apresoline] 25 mg PO TID PRN #90 tab PRN Reason: Blood Pressure - High Ipratropium-Albuterol Nebulize [Duoneb 0.5 mg-3 mg/3 ml Soln] 3 ml INHALATION RT-Q2H PRN ampul.neb PRN Reason: Wheezing predniSONE 20 mg PO DAILY Discontinued amLODIPine [Norvasc] 10 mg PO DAILY #30 tab Verapamil Sr [Isoptin Sr] 180 mg PO DAILY #30 tablet.er Discharge Medication List Albuterol Inhaler [Ventolin Hfa Inhaler] 2 puff INHALATION RT-QID PRN 01/03/14 [ History] Omeprazole [PriLOSEC] 40 mg PO BID 01/03/14 [History] Multivitamins, Thera [Multivitamin (formulary)] 1 tab PO DAILY 12/24/14 [History ] risperiDONE 3 mg PO HS 12/24/14 [History] traZODone HCL 300 mg PO HS 12/24/14 [History] buPROPion SR [Wellbutrin SR] 150 mg PO HS 04/30/15 [History] Aspirin [Aspirin EC] 325 mg PO HS 03/24/16 [History] Budesonide-Formot 160-4.5 Mcg [Symbicort 160-4.5 Mcg Inhaler] 2 puff INHALATION RT-BID puff 07/13/16 [Rx] Ipratropium-Albuterol Nebulize [Duoneb 0.5 mg-3 mg/3 ml Soln] 3 ml INHALATION RT -QID neb 01/20/17 [Rx] Theophylline 24 Hour [Akhil-24] 200 mg PO BID 07/06/17 [History] rOPINIRole HCL [Requip] 1 mg PO HS 11/02/17 [History] Butalb/APAP/Caff 50-325-40Mg [Fioricet 50-325-40] 1 tab PO Q8H PRN 12/21/17 [ History] Calcium Carb-Vit D 250Mg-125Un [Oscal 250+D] 1 tab PO DAILY 12/21/17 [History] Fluticasone Nasal [place] [Flonase Nasal [place]] 2 spray EA NOSTRIL DAILY 12/21/17 [History] Pregabalin [Lyrica] 150 mg PO BID 12/21/17 [History] Ipratropium-Albuterol Nebulize [Duoneb 0.5 mg-3 mg/3 ml Soln] 3 ml INHALATION RT -Q2H PRN ampul.neb 12/29/17 [Rx] hydrALAZINE HCL [Apresoline] 25 mg PO TID PRN #90 tab 12/29/17 [Rx] predniSONE 20 mg PO DAILY 01/19/18 [History] Verapamil Sr [Isoptin Sr] 240 mg PO DAILY #30 tablet.er 01/23/18 [Rx] Follow up Appointment(s)/Referral(s): Italo John MD [Primary Care Provider] - 01/26/18 10:40 am Patient Instructions/Handouts: Acute Abdominal Pain (DC) Activity/Diet/Wound Care/Special Instructions: Fleets enema, patient wishes to complete at home. Discharge Disposition: HOME SELF-CARE
== END 2018-01-23 12:24 | disposition home or self-care (01) | DRG 392 ==
LOC: EC 10:35 → 4MS4W 13:42
PROVIDERS: ADMIT Family Medicine; ATTEND Family Medicine
DX: R10.9 Unspecified abdominal pain (principal); J96.12 Chronic respiratory failure with hypercapnia; J98.11 Atelectasis; N13.2 Hydronephrosis with renal and ureteral calculous obstruction; R64 Cachexia; D72.829 Elevated white blood cell count, unspecified; E78.5 Hyperlipidemia, unspecified; F17.200 Nicotine dependence, unspecified, uncomplicated; F31.9 Bipolar disorder, unspecified; G25.81 Restless legs syndrome; G89.29 Other chronic pain; I25.2 Old myocardial infarction; K21.9 Gastro-esophageal reflux disease without esophagitis; K57.10 Diverticulosis of small intestine without perforation or abscess without bleeding; Z79.51 Long term (current) use of inhaled steroids; Z79.52 Long term (current) use of systemic steroids; Z79.82 Long term (current) use of aspirin; Z79.899 Other long term (current) drug therapy; Z85.41 Personal history of malignant neoplasm of cervix uteri; Z87.11 Personal history of peptic ulcer disease; Z90.710 Acquired absence of both cervix and uterus; Z90.49 Acquired absence of other specified parts of digestive tract; J44.9 Chronic obstructive pulmonary disease, unspecified; Z88.6 Allergy status to analgesic agent; Z88.1 Allergy status to other antibiotic agents; Z88.2 Allergy status to sulfonamides; Z91.018 Allergy to other foods
CPT/HCPCS: 36415; 74177; 80048; 80053; 81001; 82150; 82550; 82553; 83605; 83690; 85025; 85027; 85610; 85730; 87040; 94640; 94760; 96361; 96374; 99285

== ENCOUNTER → 2018-01-19 | Outpatient (CLI) | payer OTHER ==
--- NOTE | 2018-01-19 09:48 | CT ---
EXAMINATION TYPE: CT abdomen pelvis wo con DATE OF EXAM: 01/19/2018 COMPARISON: 11/02/2017 HISTORY: Lt flank pain, hematuria CT DLP: 604 mGycm Automated exposure control for dose reduction was used. TECHNIQUE: Helical acquisition of images was performed from the lung bases through the pelvis. FINDINGS: LUNG BASES: No significant abnormality is appreciated. LIVER/GB: Unremarkable unenhanced morphology. Gallbladder surgically absent. Postsurgical dilatation of the extrahepatic bile duct. No intrahepatic biliary ductal dilatation. PANCREAS: There is a 2.2 x 1.9 cm fluid collection with an air-fluid level medial to the descending d uodenum at the inferior margin of the pancreatic head and uncinate process. The pancreatic duct is pr ominent measuring 2.6 mm on series 3 image 33 within the pancreatic body. Additionally there is extra hepatic biliary ductal dilatation extending towards this fluid collection although there does not sarah ear to be tracked continuity on coronal images. No peripancreatic fat stranding. SPLEEN: No significant abnormality is seen. ADRENALS: No significant abnormality is seen. KIDNEYS: There is a punctate 1 to 2 mm focus within the proximal right ureter on series 3 image 62 cr eating very mild right hydroureteronephrosis. No perinephric fat stranding or perinephric fluid colle ction. Additional nonobstructing right lower pole 3 mm calculus is seen. No left-sided renal calculi. FREE AIR: No free air is visualized ADENOPATHY: No greater than 1 cm short axis left lung is seen within the abdomen or pelvis. URINARY BLADDER: No significant abnormality is seen. OSSEOUS STRUCTURES: No significant abnormality is seen. BOWEL: No dilated bowel. Moderate amount of retained colonic stool is noted.. OTHER: Moderate atheromatous changes are seen of the abdominal aorta and its branches. IMPRESSION: 1. OBSTRUCTING PUNCTATE 1 TO 2 MM RIGHT PROXIMAL URETERAL CALCULUS CREATING MILD RIGHT HYDROURETERONE PHROSIS. ADDITIONAL 3 MM NONOBSTRUCTING RIGHT RENAL CALCULUS IS SEEN. 2. PANCREATIC/PERIPANCREATIC FLUID COLLECTION DEMONSTRATING AN AIR-FLUID LEVEL THAT IS NOT DEMONSTRAT ED DEFINITIVELY ON PRIOR EXAMS. THIS COULD SIMPLY REPRESENT A DUODENAL DIVERTICULUM, HOWEVER ABSCESS IS A POSSIBILITY. REPEAT SECTIONS THROUGH THE UPPER ABDOMEN COULD BE PERFORMED AFTER ADMINISTRATION O F ORAL CONTRAST TO DEMONSTRATE ANY CONTINUITY WITH THE DESCENDING DUODENUM.
== END | disposition home or self-care (01) ==
LOC: RADCTMAIN 09:02
PROVIDERS: ATTEND Family Medicine
DX: N13.2 Hydronephrosis with renal and ureteral calculous obstruction (principal); Z88.1 Allergy status to other antibiotic agents
CPT/HCPCS: 74176

== ENCOUNTER 2018-03-13 17:56 | Inpatient (IN) | payer OTHER ==
[2018-03-13] MEDS ORDERED: IPRATROPIUM-ALBUTEROL 3 ML NEB INHALATION STA (17:58)
[2018-03-13] MEDS ORDERED: methylPREDNISolone SOD SUCCI 125 MG/2 ML VIAL IV STA (17:58)
[2018-03-13] MEDS ORDERED: LORazepam 2 MG/ML INJ IV STA (18:11)
[2018-03-13 18:19] LABS: Basophils # (A) 0.1 k/uL (0-0.2); Basophils % (A) 0 %; Eosinophils # (A) 0.2 k/uL (0-0.7); Eosinophils % (A) 1 %; HCT 39.7 % (34.0-46.0); HGB 12.3 gm/dL (11.4-16.0); Hypochromasia Moderate; Lymphocytes # (A) 2.3 k/uL (1.0-4.8); Lymphocytes % (A) 7 %; MCH 26.3 pg (25.0-35.0); MCV 84.9 fL (80.0-100.0); Mean Platelet Volume 6.4; Monocytes # (A) 0.7 k/uL (0-1.0); Monocytes % (A) 2 %; Neutrophils # (A) 30.5 k/uL (1.3-7.7); Neutrophils % (A) 90 %; Platelet Count 782 k/uL (150-450); RBC 4.67 m/uL (3.80-5.40); RDW 15.2 % (11.5-15.5)
[2018-03-13 18:29] LABS: ALT 21 U/L (9-52); AST 16 U/L (14-36); Albumin 3.6 g/dL (3.5-5.0); Alkaline Phosphatase 85 U/L (38-126); Anion Gap 6 mmol/L; Blood Urea Nitrogen 19 mg/dL (7-17); Carbon Dioxide 33 mmol/L (22-30); Chloride 102 mmol/L (98-107); Glucose 201 mg/dL (74-99); Potassium 4.2 mmol/L (3.5-5.1); Sodium 141 mmol/L (137-145); Total Bilirubin 0.2 mg/dL (0.2-1.3); Total Protein 6.3 g/dL (6.3-8.2)
[2018-03-13 18:33] LABS: INR 0.9 (<1.2); Prothrombin Time 9.5 sec (9.0-12.0)
[2018-03-13] MEDS ORDERED: LEVOFLOXACIN 750MG-D5W PMX 750 MG in DEXTROSE/WATER 1 150ML.BAG IVPB STA (18:33)
[2018-03-13] MEDS ORDERED: VANCOMYCIN IV PER PHARMACY 1 EACH MISC MISCELLANE PRN (18:33)
[2018-03-13 18:35] LABS: Partial Thromboplastin Time 21.3 sec (22.0-30.0)
--- NOTE | 2018-03-13 18:36 | ED ---
SOB HPI - General Chief Complaint: Shortness of Breath Stated Complaint: Diff Breathing Time Seen by Provider: 03/13/18 17:57 Source: patient, EMS Mode of arrival: EMS Limitations: no limitations - History of Present Illness Initial Comments: This is a 47-year-old female who presents emergency department for shortness of breath. She states that it's been worsening throughout the day today. She states that her normal medications have not worked at home. She does have a history of COPD and states that this feels like her previous history of COPD. Admits to cough today. Also admits to some chest pain. Denies any other acute complaints. Patient in acute respiratory distress and thus difficult to get a history from - Related Data Home Medications Medication Instructions Recorded Confirmed Albuterol Inhaler [Ventolin Hfa 2 puff INHALATION RT-QID PRN 01/03/14 01/19/18 Inhaler] Omeprazole [PriLOSEC] 40 mg PO BID 01/03/14 01/19/18 Multivitamins, Thera [Multivitamin 1 tab PO DAILY 12/24/14 01/19/18 (formulary)] risperiDONE 3 mg PO HS 12/24/14 01/19/18 traZODone HCL 300 mg PO HS 12/24/14 01/19/18 buPROPion SR [Wellbutrin SR] 150 mg PO HS 04/30/15 01/19/18 Aspirin [Aspirin EC] 325 mg PO HS 03/24/16 01/19/18 Theophylline 24 Hour [Akhil-24] 200 mg PO BID 07/06/17 01/19/18 rOPINIRole HCL [Requip] 1 mg PO HS 11/02/17 01/19/18 Butalb/APAP/Caff 50-325-40Mg 1 tab PO Q8H PRN 12/21/17 01/19/18 [Fioricet 50-325-40] Calcium Carb-Vit D 250Mg-125Un 1 tab PO DAILY 12/21/17 01/19/18 [Oscal 250+D] Fluticasone Nasal [place] [Flonase 2 spray EA NOSTRIL DAILY 12/21/17 01/19/18 Nasal [place]] Pregabalin [Lyrica] 150 mg PO BID 12/21/17 01/19/18 predniSONE 20 mg PO DAILY 01/19/18 01/19/18 Previous Rx's Medication Instructions Recorded Budesonide-Formot 160-4.5 Mcg 2 puff INHALATION RT-BID puff 07/13/16 [Symbicort 160-4.5 Mcg Inhaler] Ipratropium-Albuterol Nebulize 3 ml INHALATION RT-QID neb 01/20/17 [Duoneb 0.5 mg-3 mg/3 ml Soln] Ipratropium-Albuterol Nebulize 3 ml INHALATION RT-Q2H PRN 12/29/17 [Duoneb 0.5 mg-3 mg/3 ml Soln] ampul.neb hydrALAZINE HCL [Apresoline] 25 mg PO TID PRN #90 tab 12/29/17 Na Phos,M-B/Na Phos,Di-Ba [Fleet 1 dose RECTAL ONCE #1 bottle 01/23/18 Adult] Verapamil Sr [Isoptin Sr] 240 mg PO DAILY #30 tablet.er 01/23/18 Allergies Allergy/AdvReac Type Severity Reaction Status Date / Time aripiprazole [From Abilify] Allergy Rash/Hives Verified 01/19/18 10:56 cephalexin [From Keflex] Allergy Unknown Verified 01/19/18 10:56 honey Allergy Rash/Hives Verified 01/19/18 10:56 methadone [Methadone] Allergy Itching Verified 01/19/18 10:56 naproxen Allergy Rash/Hives Verified 01/19/18 10:56 sulfamethoxazole Allergy Rash/Hives Verified 01/19/18 10:56 [From Bactrim] tetracycline [Tetracycline] Allergy Rash/Hives Verified 01/19/18 10:56 trimethoprim [From Bactrim] Allergy Rash/Hives Verified 01/19/18 10:56 adhesive tape AdvReac Rash/Hives Verified 01/19/18 10:56 tramadol HCl [From Ultram] AdvReac SEIZURES Verified 01/19/18 10:56 tromethamine AdvReac Nausea & Verified 01/19/18 10:56 Vomiting Review of Systems ROS Statement: Those systems with pertinent positive or pertinent negative responses have been documented in the HPI. ROS Other: All systems not noted in ROS Statement are negative. Past Medical History Past Medical History: Asthma, Cancer, Chest Pain / Angina, COPD, Eye Disorder, GERD/Reflux, Hyperlipidemia, Myocardial Infarction (CT), Osteoarthritis (OA), Pneumonia, Respiratory Disorder Additional Past Medical History / Comment(s): pastthoracic spine fractures T8-T9 , possible oseoporosis. End stage COPD , chronic hypoxic and hypercapnic respiratory failure, home O2 at 6L/NC and bipap at HS, steroid dependent, bronchitis, 1997 pt states she was told her EKG showed a past CT, cervical cancer with hysterectomy, PUD, carpal tunnel bilaterally, herniated discs C5-C6 and L5-L6, cervical/lumbar spondylosis, RLS, eczema, cataract L eye, tinnitis bilaterally, sinus problems. Last Myocardial Infarction Date:: UNK History of Any Multi-Drug Resistant Organisms: None Reported, MRSA Date of last positivie culture/infection: 06/18/2015 MDRO Source:: SPUTUM Past Surgical History: Section, Cholecystectomy, Ear Surgery, Hysterectomy, Tubal Ligation Additional Past Surgical History / Comment(s): x 2, EGD, colonoscopy with benign polypectomy, R ear cyst with surgery.. Past Anesthesia/Blood Transfusion Reactions: No Reported Reaction Additional Past Anesthesia/Blood Transfusion Reaction / Comment(s): Pt has never recieved blood. Past Psychological History: Anxiety, Bipolar, Depression Smoking Status: Current some day smoker Past Alcohol Use History: None Reported Past Drug Use History: None Reported - Past Family History Father Family Medical History: No Reported History Additional Family Medical History / Comment(s): WAS AN ALCOHOLIC Mother Family Medical History: Cancer Additional Family Medical History / Comment(s): AT AGE 54-BOWEL CANCER General Exam - General Exam Comments Initial Comments: Constitutional: Awake alert patient is in respiratory distress Head: Normocephalic atraumatic Eyes: no conjunctival injection No scleral icterus EOMI Neck: No JVD Supple Heart: Regular rate rhythm normal S1-S2 no murmurs Lungs: Patient is in moderate to severe respiratory distress, decreased breath sounds throughout all lung cagle No wheezing No rales Abdomen: Soft nondistended nontender Extremities: Non edematous DP pulses intact Radial pulses intact Neuro: A&Ox3 No focal neurologic deficits Psych: Appropriate mood and affect Limitations: no limitations Course Vital Signs 03/13/18 03/13/18 03/13/18 18:04 18:33 18:46 Temperature 97.2 F L Pulse Rate 133 H 124 H 124 H Respiratory 34 H 35 H Rate Blood Pressure 181/85 O2 Sat by Pulse 90 L Oximetry 03/13/18 19:15 Temperature 98.8 F Pulse Rate 119 H Respiratory 35 H Rate Blood Pressure 142/77 O2 Sat by Pulse 93 L Oximetry Medical Decision Making - Medical Decision Making Is a 47-year-old female who presents emergency department for respiratory distress. The patient was found be septic with pneumonia. She was started on antibiotics after blood cultures drawn. She was given a 30 mL per KG bolus. The patient was placed on BiPAP for her respiratory distress and was improved. At this time the patient can be admitted to the hospital for respiratory failure and pneumonia. The patient will be placed on selective unit. Dr. John accepts admission. - Lab Data Result diagrams: 03/13/18 18:00 03/13/18 18:00 Lab Results 03/13/18 03/13/18 03/13/18 Range/Units 18:00 18:00 18:00 WBC 34.0 H* (3.8-10.6) k/uL RBC 4.67 (3.80-5.40) m/uL Hgb 12.3 (11.4-16.0) gm/dL Hct 39.7 (34.0-46.0) % MCV 84.9 (80.0-100.0) fL MCH 26.3 (25.0-35.0) pg MCHC 31.0 (31.0-37.0) g/dL RDW 15.2 (11.5-15.5) % Plt Count 782 H (150-450) k/uL Neutrophils % 90 % Lymphocytes % 7 % Monocytes % 2 % Eosinophils % 1 % Basophils % 0 % Neutrophils # 30.5 H (1.3-7.7) k/uL Lymphocytes # 2.3 (1.0-4.8) k/uL Monocytes # 0.7 (0-1.0) k/uL Eosinophils # 0.2 (0-0.7) k/uL Basophils # 0.1 (0-0.2) k/uL Hypochromasia Moderate PT (9.0-12.0) sec INR (<1.2) APTT (22.0-30.0) sec Sodium 141 (137-145) mmol/L Potassium 4.2 (3.5-5.1) mmol/L Chloride 102 (98-107) mmol/L Carbon Dioxide 33 H (22-30) mmol/L Anion Gap 6 mmol/L BUN 19 H (7-17) mg/dL Creatinine 0.51 L (0.52-1.04) mg/dL Est GFR (CKD-EPI)AfAm >90 (>60 ml/min/1.73 sqM) Est GFR (CKD-EPI)NonAf >90 (>60 ml/min/1.73 sqM) Glucose 201 H (74-99) mg/dL Plasma Lactic Acid Tim (0.7-2.0) mmol/L Calcium 9.0 (8.4-10.2) mg/dL Total Bilirubin 0.2 (0.2-1.3) mg/dL AST 16 (14-36) U/L ALT 21 (9-52) U/L Alkaline Phosphatase 85 (38-126) U/L CK-MB (CK-2) 1.5 (0.0-2.4) ng/mL Troponin I <0.012 (0.000-0.034) ng/mL NT-Pro-B Natriuret Pep pg/mL Total Protein 6.3 (6.3-8.2) g/dL Albumin 3.6 (3.5-5.0) g/dL 03/13/18 03/13/18 03/13/18 Range/Units 18:00 18:00 18:00 WBC (3.8-10.6) k/uL RBC (3.80-5.40) m/uL Hgb (11.4-16.0) gm/dL Hct (34.0-46.0) % MCV (80.0-100.0) fL MCH (25.0-35.0) pg MCHC (31.0-37.0) g/dL RDW (11.5-15.5) % Plt Count (150-450) k/uL Neutrophils % % Lymphocytes % % Monocytes % % Eosinophils % % Basophils % % Neutrophils # (1.3-7.7) k/uL Lymphocytes # (1.0-4.8) k/uL Monocytes # (0-1.0) k/uL Eosinophils # (0-0.7) k/uL Basophils # (0-0.2) k/uL Hypochromasia PT 9.5 (9.0-12.0) sec INR 0.9 (<1.2) APTT 21.3 L (22.0-30.0) sec Sodium (137-145) mmol/L Potassium (3.5-5.1) mmol/L Chloride (98-107) mmol/L Carbon Dioxide (22-30) mmol/L Anion Gap mmol/L BUN (7-17) mg/dL Creatinine (0.52-1.04) mg/dL Est GFR (CKD-EPI)AfAm (>60 ml/min/1.73 sqM) Est GFR (CKD-EPI)NonAf (>60 ml/min/1.73 sqM) Glucose (74-99) mg/dL Plasma Lactic Acid Tim 1.6 (0.7-2.0) mmol/L Calcium (8.4-10.2) mg/dL Total Bilirubin (0.2-1.3) mg/dL AST (14-36) U/L ALT (9-52) U/L Alkaline Phosphatase (38-126) U/L CK-MB (CK-2) (0.0-2.4) ng/mL Troponin I (0.000-0.034) ng/mL NT-Pro-B Natriuret Pep 93 pg/mL Total Protein (6.3-8.2) g/dL Albumin (3.5-5.0) g/dL Critical Care Time Critical Care Time: Yes Total Critical Care Time: 35 Critical Care Time: Critical care time spent on history and physical, ordering and reviewing lab studies and imaging studies, reevaluation of the patient, BiPAP management, pulse oximetry, cardiac monitoring and telemetry. Disposition Clinical Impression: CAP (community acquired pneumonia), Sepsis Disposition: ADMITTED IP TO THIS HOSP Condition: Stable
[2018-03-13] MEDS ORDERED: VANCOMYCIN 1,000 MG in SODIUM CHLORIDE 0.9% 250 ML IVPB STA (18:42)
--- NOTE | 2018-03-13 18:50 | XR ---
EXAMINATION TYPE: XR chest 1V portable DATE OF EXAM: 03/13/2018 COMPARISON: 12/21/2017 HISTORY: Difficulty breathing TECHNIQUE: Single frontal view of the chest is obtained. FINDINGS: Heart and mediastinum are normal. There is coarsening of the lung markings. There is inter stitial infiltrates in the lower lobes. This is more on the left side. There are chest leads. No pleu ral effusion is seen.. IMPRESSION: Interstitial pulmonary infiltrates appear slightly increased compared to last exam. Ther e is new mild pneumonia at the left lung base.
[2018-03-13 18:52] LABS: Creatine Kinase MB 1.5 ng/mL (0.0-2.4); Troponin I <0.012 ng/mL (0.000-0.034)
[2018-03-13] MEDS: SODIUM CHLORIDE 0.9% 500 ML IV SCH (19:14)
[2018-03-13] MEDS ORDERED: NALOXONE 0.4 MG/ML 1 ML VIAL IV PRN (19:50)
[2018-03-13] MEDS ORDERED: BUTALB/APAP/CAFF 50-325-40MG TAB PO PRN (19:52)
[2018-03-13] MEDS ORDERED: ALBUTEROL NEBULIZED 2.5 MG/3 ML INHALATION PRN (19:52)
[2018-03-13] MEDS ORDERED: hydrALAZINE HCL 25 MG TAB PO PRN (19:52)
[2018-03-13] MEDS: methylPREDNISolone SOD SUCCI 125 MG/2 ML VIAL IV SCH (20:57)
[2018-03-13] MEDS ORDERED: buPROPion SR 150 MG TABLET.ER PO SCH (21:00)
[2018-03-13] MEDS ORDERED: ASPIRIN 325 MG PO SCH (21:00)
[2018-03-13] MEDS: THEOPHYLLINE 24 HOUR 200 MG CAP.ER.24H PO SCH (21:02)
[2018-03-13] MEDS: risperiDONE 1 MG TAB PO SCH (21:02)
[2018-03-13] MEDS: traZODone HCL 100 MG TAB PO SCH (21:03)
[2018-03-13] MEDS: PREGABALIN 75 MG CAP PO SCH (21:09)
[2018-03-13] MEDS: IPRATROPIUM-ALBUTEROL 3 ML NEB INHALATION SCH (21:39)
[2018-03-13] MEDS: SYMBICORT 160-4.5 MCG INHALER INHALATION SCH (21:39)
[2018-03-13 21:57] LABS: Glucose,Whole Blood 162 mg/dL (75-99)
[2018-03-13] MEDS: INSULIN ASPART 100 UNIT/ML 1 ML 10 ML VIAL SQ SCH (21:57)
[2018-03-13] MEDS: IPRATROPIUM-ALBUTEROL 3 ML NEB INHALATION PRN (23:33)
[2018-03-14 00:44] LABS: Creatine Kinase 34 U/L (30-135)
[2018-03-14 00:55] LABS: Creatine Kinase MB 2.3 ng/mL (0.0-2.4); Troponin I <0.012 ng/mL (0.000-0.034)
[2018-03-14] MEDS: VANCOMYCIN 1,000 MG in SODIUM CHLORIDE 0.9% 250 ML IVPB SCH ×4 (03:09→21:09)
[2018-03-14] MEDS: methylPREDNISolone SOD SUCCI 125 MG/2 ML VIAL IV SCH ×4 (03:09→19:29)
[2018-03-14 04:22] LABS: Hemoglobin A1C 5.7 % (4.0-6.0)
[2018-03-14 05:56] LABS: Glucose,Whole Blood 113 mg/dL (75-99)
[2018-03-14] MEDS: INSULIN ASPART 100 UNIT/ML 1 ML 10 ML VIAL SQ SCH ×4 (06:13→21:08)
[2018-03-14] MEDS: PANTOPRAZOLE 40 MG TABLET PO SCH (06:23)
[2018-03-14 06:33] LABS: Creatine Kinase 31 U/L (30-135)
[2018-03-14 06:47] LABS: Troponin I <0.012 ng/mL (0.000-0.034)
[2018-03-14 06:52] LABS: Creatine Kinase MB 2.6 ng/mL (0.0-2.4)
[2018-03-14] MEDS: SYMBICORT 160-4.5 MCG INHALER INHALATION SCH (08:28)
[2018-03-14] MEDS: IPRATROPIUM-ALBUTEROL 3 ML NEB INHALATION SCH ×4 (08:28→19:43)
[2018-03-14] MEDS: FLUTICASONE 50MCG/SPRAY NASAL 16GM EA NOSTRIL SCH (08:30)
[2018-03-14] MEDS: MULTIVITAMINS, THERA 1 EACH TAB PO SCH (08:31)
[2018-03-14] MEDS: THEOPHYLLINE 24 HOUR 200 MG CAP.ER.24H PO SCH ×2 (08:31→21:08)
[2018-03-14] MEDS: VERAPAMIL SR 180 MG TABLET.ER PO SCH (08:32)
[2018-03-14] MEDS: PREGABALIN 75 MG CAP PO SCH ×2 (08:36→21:08)
[2018-03-14] MEDS ORDERED: CALCIUM CARB-VIT D 250MG-125UN 1 EACH TAB PO SCH (09:00)
--- NOTE | 2018-03-14 11:18 | P.HPIM ---
History of Present Illness 47-year-old female presented to the emergency room with complaints of shortness of breath. Patient is chronic COPD with frequent respiratory failure. Patient continues to use tobacco Review of Systems Constitutional: Reports fatigue Ears, nose, mouth and throat: Reports sinus pressure Respiratory: Reports cough, Reports dyspnea Past Medical History Past Medical History: Asthma, Cancer, Chest Pain / Angina, COPD, Eye Disorder, GERD/Reflux, Hyperlipidemia, Myocardial Infarction ([place]), Osteoarthritis (OA), Pneumonia, Respiratory Disorder Additional Past Medical History / Comment(s): past thoracic spine fractures T8- T9, possible oseoporosis. End stage COPD , chronic hypoxic and hypercapnic respiratory failure, home O2 at 5-6L/NC and bipap at HS, steroid dependent, bronchitis, 1997 pt states she was told her EKG showed a past [place], cervical cancer with hysterectomy, PUD, carpal tunnel bilaterally, herniated discs C5-C6 and L5-L6, cervical/lumbar spondylosis, RLS, eczema, cataract L eye, tinnitis bilaterally, sinus problems. Last Myocardial Infarction Date:: UNK History of Any Multi-Drug Resistant Organisms: None Reported, MRSA Date of last positivie culture/infection: 06/18/2015 MDRO Source:: SPUTUM Past Surgical History: Section, Cholecystectomy, Ear Surgery, Hysterectomy, Tubal Ligation Additional Past Surgical History / Comment(s): x 2, EGD, colonoscopy with benign polypectomy, R ear cyst with surgery.. Past Anesthesia/Blood Transfusion Reactions: No Reported Reaction Additional Past Anesthesia/Blood Transfusion Reaction / Comment(s): Pt has never recieved blood. Past Psychological History: Anxiety, Bipolar, Depression Additional Psychological History / Comment(s): Pt resides with her son jessica. She normally performs her own ADLs. She has home O2. She has a nebulizer. She does not drive but her son takes her places. Relates that she is an ongoing tobacco smoker-last smoked one week ago and plans to be quit. She does not have experience. She has no international travels. Pt states she currently has no home care but has used [facility] in the past. Smoking Status: Current some day smoker Past Alcohol Use History: None Reported Additional Past Alcohol Use History / Comment(s): Pt started smoking in 1984. She states she smokes somedays 2 cig per week Past Drug Use History: None Reported Additional Drug Use History / Comment(s): MEDICAL MARIJUANA AND SMOKES DAILY. - Past Family History Father Family Medical History: No Reported History Additional Family Medical History / Comment(s): WAS AN ALCOHOLIC Mother Family Medical History: Cancer Additional Family Medical History / Comment(s): AT AGE 54-BOWEL CANCER Medications and Allergies Home Medications Medication Instructions Recorded Confirmed Type Albuterol Inhaler [Ventolin Hfa 2 puff INHALATION RT-QID PRN 01/03/14 03/13/18 History Inhaler] Omeprazole [PriLOSEC] 40 mg PO BID 01/03/14 03/13/18 History risperiDONE 3 mg PO HS 12/24/14 03/13/18 History traZODone HCL 300 mg PO HS 12/24/14 03/13/18 History Budesonide-Formot 160-4.5 Mcg 2 puff INHALATION RT-BID puff 07/13/16 03/13/18 Rx [Symbicort 160-4.5 Mcg Inhaler] Ipratropium-Albuterol Nebulize 3 ml INHALATION RT-QID neb 01/20/17 03/13/18 Rx [Duoneb 0.5 mg-3 mg/3 ml Soln] Theophylline 24 Hour [Akhil-24] 200 mg PO BID 07/06/17 03/13/18 History Fluticasone Nasal [place] [Flonase 2 spray EA NOSTRIL DAILY 12/21/17 03/13/18 History Nasal [place]] Pregabalin [Lyrica] 150 mg PO BID 12/21/17 03/13/18 History predniSONE 20 mg PO DAILY 01/19/18 03/13/18 History Albuterol Nebulized [Ventolin 2.5 mg INHALATION RT-Q6H PRN 03/13/18 03/13/18 History Nebulized] Grant/D3/Mag11/Zinc/Supervisor [employer] Dressing/Gianni/Bor 1 tab PO DAILY 03/13/18 03/13/18 History [Caltrate 600+D Plus Tablet] HYDROcodone/APAP 5-325MG [[place] 1 tab PO BID PRN 03/13/18 03/13/18 History 5-325] Ibuprofen [Motrin] 600 mg PO BID PRN 03/13/18 03/13/18 History Ipratropium [place] [Atrovent Hfa] 2 puff INHALATION RT-QID PRN 03/13/18 History Ipratropium Nebulized [Atrovent 0.5 mg INHALATION RT-Q6H PRN 03/13/18 03/13/18 History Nebulized] Umeclidinium [place] [Incruse 1 puff INHALATION RT-DAILY 03/13/18 03/13/18 History Ellipta] Verapamil HCl [Verapamil ER] 180 mg PO DAILY 03/13/18 03/13/18 History amLODIPine [Norvasc] 10 mg PO DAILY 03/13/18 03/13/18 History Allergies Allergy/AdvReac Type Severity Reaction Status Date / Time aripiprazole [From Abilify] Allergy Rash/Hives Verified 03/13/18 19:56 cephalexin [From Keflex] Allergy Unknown Verified 03/13/18 19:56 honey Allergy Rash/Hives Verified 03/13/18 19:56 methadone [Methadone] Allergy Itching Verified 03/13/18 19:56 naproxen Allergy Rash/Hives Verified 03/13/18 19:56 sulfamethoxazole Allergy Rash/Hives Verified 03/13/18 19:56 [From Bactrim] tetracycline [Tetracycline] Allergy Rash/Hives Verified 03/13/18 19:56 trimethoprim [From Bactrim] Allergy Rash/Hives Verified 03/13/18 19:56 adhesive tape AdvReac Rash/Hives Verified 03/13/18 19:56 tramadol HCl [From Ultram] AdvReac SEIZURES Verified 03/13/18 19:56 tromethamine AdvReac Nausea & Verified 03/13/18 19:56 Vomiting Physical Exam Vitals: Vital Signs Temp Pulse Pulse Resp BP BP Pulse Ox 03/14/18 09:08 84 03/14/18 08:32 88 03/14/18 04:10 84 03/14/18 03:55 88 03/14/18 03:33 98.6 F 88 20 110/62 98 03/13/18 23:43 101 H 03/13/18 23:33 104 H 03/13/18 23:30 98.5 F 113 H 25 H 149/74 92 L 03/13/18 22:13 120 H 25 H 03/13/18 21:58 116 H 03/13/18 21:40 116 H 03/13/18 20:46 97.5 F L 119 H 25 H 139/82 90 L 03/13/18 19:15 98.8 F 119 H 35 H 142/77 93 L 03/13/18 18:46 124 H 03/13/18 18:33 124 H 35 H 03/13/18 18:04 97.2 F L 133 H 34 H 181/85 90 L Intake and Output 03/13/18 03/14/18 03/14/18 22:59 06:59 14:59 Intake Total 0 Balance 0 Intake: Oral 0 Other: Voiding Method Toilet Toilet Diaper Diaper # Voids 1 0 Weight 53.07 kg 54.9 kg - Constitutional General appearance: mild distress, thin - EENT Eyes: PERRLA Ears: bilateral: normal - Neck Neck: normal ROM - Respiratory Respiratory: bilateral: rhonchi, wheezing - Cardiovascular Rhythm: regular - Gastrointestinal General gastrointestinal: soft - Integumentary Integumentary: normal - Neurologic Neurologic: CNII-XII intact - Musculoskeletal Musculoskeletal: generalized weakness - Psychiatric Psychiatric: A&O x's 3 Results CBC & Chem 7: 03/13/18 18:00 03/13/18 18:00 Labs: Abnormal Lab Results - Last 24 Hours (Table) 03/13/18 03/13/18 03/13/18 Range/Units 18:00 18:00 18:00 WBC 34.0 H* (3.8-10.6) k/uL Plt Count 782 H (150-450) k/uL Neutrophils # 30.5 H (1.3-7.7) k/uL APTT 21.3 L (22.0-30.0) sec Carbon Dioxide 33 H (22-30) mmol/L BUN 19 H (7-17) mg/dL Creatinine 0.51 L (0.52-1.04) mg/dL Glucose 201 H (74-99) mg/dL POC Glucose (mg/dL) (75-99) mg/dL CK-MB (CK-2) (0.0-2.4) ng/mL 03/13/18 03/14/18 03/14/18 Range/Units 21:54 05:43 05:55 WBC (3.8-10.6) k/uL Plt Count (150-450) k/uL Neutrophils # (1.3-7.7) k/uL APTT (22.0-30.0) sec Carbon Dioxide (22-30) mmol/L BUN (7-17) mg/dL Creatinine (0.52-1.04) mg/dL Glucose (74-99) mg/dL POC Glucose (mg/dL) 162 H 113 H (75-99) mg/dL CK-MB (CK-2) 2.6 H* (0.0-2.4) ng/mL Chest x-ray: report reviewed Thrombosis Risk Factor Assmnt - Choose All That Apply Any of the Below Risk Factors Present?: Yes Each Factor Represents 1 point: Abnormal pulmonary function (COPD), Age 41-60 years, Medical pt on bed rest Other Risk Factors: Yes Thrombosis Risk Factor Assessment Total Risk Factor Score: 3 Thrombosis Risk Factor Assessment Level: Moderate Risk Assessment and Plan Plan: Assessment Community-acquired pneumonia with sepsis COPD oxygen dependent has a history GERD Coronary disease with [place] Osteoarthritis opioid dependence Plan Pulmonology consultation Patient on bronchodilators steroids and vancomycin and Levaquin
--- NOTE | 2018-03-14 11:31 | P.CNPUL ---
History of Present Illness Consult date: 03/14/18 Reason for consult: dyspnea, cough, COPD, pneumonia, pulmonary hypertension, abnormal CXR/CT Chief complaint: Shortness of breath/pneumonia History of present illness: Pulmonary consult dated 03/14/2018 47-year-old female who looks much older than her stated age comes into the emergency department complaining of shortness of breath. She was admitted with a diagnosis of COPD exacerbation and possible pneumonia. The patient has multiple admissions in the hospital. We calculated 9 or 10 admissions in the last year or so. Anyway, the patient's well-known to our service. I believe I saw her the last time she was in the hospital. She continues to smoke cigarettes. She has end-stage oxygen-dependent COPD. She comes in with complaints of primarily shortness of breath. Chest x-ray may be a patchy infiltrate in the left lung. She does have chronic cough. She does produce mucus chronically. Doesn't cough up any blood. There was no fever chills chest pain chest discomfort palpitations nausea vomiting or diarrhea. In addition to COPD, she has a history of angina pectoris GERD hyperlipidemia myocardial infarction DJD respiratory failure and a number of other medical problems. She continues to smoke cigarettes which really undermines her care. She sabotaging is her own health by continuing to smoke cigarettes. She is also not very compliant in terms of following up with us in the office. Review of Systems A 12 point review of systems is positive for shortness of breath. She also is coughing and wheezing. She has chest tightness. Minimal phlegm production. No fever or chills. No chest pain or chest discomfort. No nausea vomiting or diarrhea. Past Medical History Past Medical History: Asthma, Cancer, Chest Pain / Angina, COPD, Eye Disorder, GERD/Reflux, Hyperlipidemia, Myocardial Infarction ([place]), Osteoarthritis (OA), Pneumonia, Respiratory Disorder Additional Past Medical History / Comment(s): past thoracic spine fractures T8- T9, possible oseoporosis. End stage COPD , chronic hypoxic and hypercapnic respiratory failure, home O2 at 5-6L/NC and bipap at HS, steroid dependent, bronchitis, 1997 pt states she was told her EKG showed a past [place], cervical cancer with hysterectomy, PUD, carpal tunnel bilaterally, herniated discs C5-C6 and L5-L6, cervical/lumbar spondylosis, RLS, eczema, cataract L eye, tinnitis bilaterally, sinus problems. Last Myocardial Infarction Date:: UNK History of Any Multi-Drug Resistant Organisms: None Reported, MRSA Date of last positivie culture/infection: 06/18/2015 MDRO Source:: SPUTUM Past Surgical History: Section, Cholecystectomy, Ear Surgery, Hysterectomy, Tubal Ligation Additional Past Surgical History / Comment(s): x 2, EGD, colonoscopy with benign polypectomy, R ear cyst with surgery.. Past Anesthesia/Blood Transfusion Reactions: No Reported Reaction Additional Past Anesthesia/Blood Transfusion Reaction / Comment(s): Pt has never recieved blood. Past Psychological History: Anxiety, Bipolar, Depression Additional Psychological History / Comment(s): Pt resides with her son jessica. She normally performs her own ADLs. She has home O2. She has a nebulizer. She does not drive but her son takes her places. Relates that she is an ongoing tobacco smoker-last smoked one week ago and plans to be quit. She does not have experience. She has no international travels. Pt states she currently has no home care but has used [facility] in the past. Smoking Status: Current some day smoker Past Alcohol Use History: None Reported Additional Past Alcohol Use History / Comment(s): Pt started smoking in 1984. She states she smokes somedays 2 cig per week Past Drug Use History: None Reported Additional Drug Use History / Comment(s): MEDICAL MARIJUANA AND SMOKES DAILY. - Past Family History Father Family Medical History: No Reported History Additional Family Medical History / Comment(s): WAS AN ALCOHOLIC Mother Family Medical History: Cancer Additional Family Medical History / Comment(s): AT AGE 54-BOWEL CANCER Medications and Allergies Home Medications Medication Instructions Recorded Confirmed Type Albuterol Inhaler [Ventolin Hfa 2 puff INHALATION RT-QID PRN 01/03/14 03/13/18 History Inhaler] Omeprazole [PriLOSEC] 40 mg PO BID 01/03/14 03/13/18 History risperiDONE 3 mg PO HS 12/24/14 03/13/18 History traZODone HCL 300 mg PO HS 12/24/14 03/13/18 History Budesonide-Formot 160-4.5 Mcg 2 puff INHALATION RT-BID puff 07/13/16 03/13/18 Rx [Symbicort 160-4.5 Mcg Inhaler] Ipratropium-Albuterol Nebulize 3 ml INHALATION RT-QID neb 01/20/17 03/13/18 Rx [Duoneb 0.5 mg-3 mg/3 ml Soln] Theophylline 24 Hour [Akhil-24] 200 mg PO BID 07/06/17 03/13/18 History Fluticasone Nasal [place] [Flonase 2 spray EA NOSTRIL DAILY 12/21/17 03/13/18 History Nasal [place]] Pregabalin [Lyrica] 150 mg PO BID 12/21/17 03/13/18 History predniSONE 20 mg PO DAILY 01/19/18 03/13/18 History Albuterol Nebulized [Ventolin 2.5 mg INHALATION RT-Q6H PRN 03/13/18 03/13/18 History Nebulized] Grant/D3/Mag11/Zinc/Assistant Quality Manager/Gianni/Bor 1 tab PO DAILY 03/13/18 03/13/18 History [Caltrate 600+D Plus Tablet] HYDROcodone/APAP 5-325MG [[place] 1 tab PO BID PRN 03/13/18 03/13/18 History 5-325] Ibuprofen [Motrin] 600 mg PO BID PRN 03/13/18 03/13/18 History Ipratropium [place] [Atrovent Hfa] 2 puff INHALATION RT-QID PRN 03/13/18 History Ipratropium Nebulized [Atrovent 0.5 mg INHALATION RT-Q6H PRN 03/13/18 03/13/18 History Nebulized] Umeclidinium [place] [Incruse 1 puff INHALATION RT-DAILY 03/13/18 03/13/18 History Ellipta] Verapamil HCl [Verapamil ER] 180 mg PO DAILY 03/13/18 03/13/18 History amLODIPine [Norvasc] 10 mg PO DAILY 03/13/18 03/13/18 History Allergies Allergy/AdvReac Type Severity Reaction Status Date / Time aripiprazole [From Abilify] Allergy Rash/Hives Verified 03/13/18 19:56 cephalexin [From Keflex] Allergy Unknown Verified 03/13/18 19:56 honey Allergy Rash/Hives Verified 03/13/18 19:56 methadone [Methadone] Allergy Itching Verified 03/13/18 19:56 naproxen Allergy Rash/Hives Verified 03/13/18 19:56 sulfamethoxazole Allergy Rash/Hives Verified 03/13/18 19:56 [From Bactrim] tetracycline [Tetracycline] Allergy Rash/Hives Verified 03/13/18 19:56 trimethoprim [From Bactrim] Allergy Rash/Hives Verified 03/13/18 19:56 adhesive tape AdvReac Rash/Hives Verified 03/13/18 19:56 tramadol HCl [From Ultram] AdvReac SEIZURES Verified 03/13/18 19:56 tromethamine AdvReac Nausea & Verified 03/13/18 19:56 Vomiting Physical Exam Osteopathic Statement: *. No significant issues noted on an osteopathic structural exam other than those noted in the History and Physical/Consult. Vitals: Vital Signs Temp Pulse Pulse Resp BP BP Pulse Ox 03/14/18 09:08 84 03/14/18 08:32 88 03/14/18 04:10 84 03/14/18 03:55 88 03/14/18 03:33 98.6 F 88 20 110/62 98 03/13/18 23:43 101 H 03/13/18 23:33 104 H 03/13/18 23:30 98.5 F 113 H 25 H 149/74 92 L 03/13/18 22:13 120 H 25 H 03/13/18 21:58 116 H 03/13/18 21:40 116 H 03/13/18 20:46 97.5 F L 119 H 25 H 139/82 90 L 03/13/18 19:15 98.8 F 119 H 35 H 142/77 93 L 03/13/18 18:46 124 H 03/13/18 18:33 124 H 35 H 03/13/18 18:04 97.2 F L 133 H 34 H 181/85 90 L Intake and Output 03/13/18 03/14/18 03/14/18 22:59 06:59 14:59 Intake Total 0 Balance 0 Intake: Oral 0 Other: Voiding Method Toilet Toilet Diaper Diaper # Voids 1 0 Weight 53.07 kg 54.9 kg The patient's currently wearing a BiPAP device. She seemed to be in mild-to- moderate distress. She is quite tachypnea. She does have conversational dyspnea. HEENT examination is grossly unremarkable. Neck supple. Full range of motion. No adenopathy thyromegaly or neck vein distention. Cardiovascular examination reveals regular rhythm rate. S1-S2 normal. No S3 or S4. No discernible murmur noted. Heart sounds are distant. Lungs reveal diffuse bilateral rhonchi. Breath sounds are diminished. There is prolongation. This some expiratory wheezes and crackles. Abdomen soft bowel sounds are heard. No masses or tenderness. Extremities are intact. No cyanosis clubbing or edema. Skin is without rash or lesion. Neurologic examination is brief but nonfocal. Results - Laboratory Findings CBC and BMP: 03/13/18 18:00 03/13/18 18:00 PT/INR, D-dimer PT 9.5 sec (9.0-12.0) 03/13/18 18:00 INR 0.9 (<1.2) 03/13/18 18:00 Abnormal lab findings: Abnormal Labs 03/13/18 03/13/18 03/13/18 18:00 18:00 18:00 WBC 34.0 H* Plt Count 782 H Neutrophils # 30.5 H APTT 21.3 L Carbon Dioxide 33 H BUN 19 H Creatinine 0.51 L Glucose 201 H POC Glucose (mg/dL) CK-MB (CK-2) 03/13/18 03/14/18 03/14/18 21:54 05:43 05:55 WBC Plt Count Neutrophils # APTT Carbon Dioxide BUN Creatinine Glucose POC Glucose (mg/dL) 162 H 113 H CK-MB (CK-2) 2.6 H* - Diagnostic Findings Chest x-ray: report reviewed (Chest x-ray labs and medications are reviewed.), image reviewed Assessment and Plan Assessment: Assessment COPD exacerbation complicated by tracheobronchitis and/or bronchopneumonia, left lower lobe Acute on chronic hypoxemic and hypercapnic respiratory failure History of gastroesophageal reflux disease Hyperlipidemia by history Myocardial infarction Previous history of pneumonia Ongoing tobacco use with nicotine addiction History of cervical cancer, status post hysterectomy Multiple other medical problems and comorbidities Plan: Plan dated 03/14/2018 The patient's medications are reviewed. X-rays and labs are reviewed. Overall prognosis is very poor. Counseled about the importance of smoking cessation. She has multiple admissions to this hospital because she continues his appetite is her health. She continues to smoke and is not compliant with hospital follow -up scan taking her medications as prescribed. The chest x-ray does reveal a possible infiltrate in the left midlung. Please see my changes to her medications. Hopefully discharge in a couple days. Time with Patient: Greater than 30
[2018-03-14 11:33] LABS: Glucose,Whole Blood 191 mg/dL (75-99)
[2018-03-14] MEDS: IPRATROPIUM-ALBUTEROL 3 ML NEB INHALATION PRN (14:31)
[2018-03-14] MEDS: HYDROcodone/APAP 5-325MG 1 EACH TAB PO PRN ×2 (15:32→15:34)
[2018-03-14] MEDS: IBUPROFEN 600 MG TAB PO PRN (15:36)
[2018-03-14 16:31] LABS: Glucose,Whole Blood 193 mg/dL (75-99)
[2018-03-14] MEDS ORDERED: HYDROcodone/APAP 5-325MG 1 EACH TAB PO STA (16:45)
[2018-03-14] MEDS: BUDESONIDE 1 MG/2 ML NEBU INHALATION SCH (19:43)
[2018-03-14] MEDS: FORMOTEROL FUMARATE 20 MCG/2 ML NEBU INHALATION SCH (19:55)
[2018-03-14] MEDS ORDERED: VANCOMYCIN TROUGH DUE 1 EACH MISC MISCELLANE ONE (20:00)
[2018-03-14 20:27] LABS: Glucose,Whole Blood 168 mg/dL (75-99)
[2018-03-14] MEDS: HYDROcodone/APAP 10-325MG 1 EACH TAB PO SCH (21:05)
[2018-03-14] MEDS: LORazepam 0.5 MG TAB PO PRN (21:06)
[2018-03-14] MEDS: risperiDONE 1 MG TAB PO SCH (21:07)
[2018-03-14] MEDS: traZODone HCL 100 MG TAB PO SCH (21:07)
[2018-03-15] MEDS: methylPREDNISolone SOD SUCCI 125 MG/2 ML VIAL IV SCH ×4 (01:39→19:48)
[2018-03-15] MEDS: IPRATROPIUM-ALBUTEROL 3 ML NEB INHALATION PRN ×2 (03:08→05:49)
[2018-03-15] MEDS: VANCOMYCIN 1,000 MG in SODIUM CHLORIDE 0.9% 250 ML IVPB SCH ×4 (03:25→21:44)
[2018-03-15] MEDS: PANTOPRAZOLE 40 MG TABLET PO SCH (05:53)
[2018-03-15 06:18] LABS: Glucose,Whole Blood 193 mg/dL (75-99)
[2018-03-15] MEDS: INSULIN ASPART 100 UNIT/ML 1 ML 10 ML VIAL SQ SCH ×4 (06:23→19:49)
[2018-03-15] MEDS: FORMOTEROL FUMARATE 20 MCG/2 ML NEBU INHALATION SCH ×2 (06:50→18:36)
[2018-03-15] MEDS: IPRATROPIUM-ALBUTEROL 3 ML NEB INHALATION SCH ×4 (06:50→18:36)
[2018-03-15] MEDS: BUDESONIDE 1 MG/2 ML NEBU INHALATION SCH ×2 (06:50→18:36)
[2018-03-15 07:13] LABS: Anion Gap 4 mmol/L; Blood Urea Nitrogen 17 mg/dL (7-17); Carbon Dioxide 34 mmol/L (22-30); Chloride 101 mmol/L (98-107); Glucose 177 mg/dL (74-99); Potassium 3.7 mmol/L (3.5-5.1); Sodium 139 mmol/L (137-145)
[2018-03-15] MEDS: FLUTICASONE 50MCG/SPRAY NASAL 16GM EA NOSTRIL SCH (08:34)
[2018-03-15] MEDS: NICOTINE 21MG/24HR PATCH TRANSDERM SCH ×2 (08:35→08:41)
[2018-03-15] MEDS: HYDROcodone/APAP 10-325MG 1 EACH TAB PO SCH ×2 (08:35→19:47)
[2018-03-15] MEDS: THEOPHYLLINE 24 HOUR 200 MG CAP.ER.24H PO SCH ×2 (08:36→19:49)
[2018-03-15] MEDS: LORazepam 0.5 MG TAB PO PRN ×2 (08:37→21:44)
[2018-03-15] MEDS: VERAPAMIL SR 180 MG TABLET.ER PO SCH (08:37)
[2018-03-15] MEDS: PREGABALIN 75 MG CAP PO SCH ×2 (08:41→19:48)
--- NOTE | 2018-03-15 11:05 | P.PN ---
Subjective Patient resting in bed more awake and alert than yesterday states some improvement Objective - Vital Signs Vital signs: Vital Signs Temp 97.2 F L 03/15/18 08:00 Pulse 97 03/15/18 10:44 Resp 20 03/15/18 08:00 BP 147/69 03/15/18 08:00 Pulse Ox 98 03/15/18 08:00 Intake & Output 03/14/18 03/15/18 03/15/18 18:59 06:59 18:59 Intake Total 940 350 Output Total 800 Balance 140 350 Weight 55.7 kg Intake: Oral 940 350 Output: Urine 800 Other: Voiding Method Toilet Diaper # Voids 2 1 # Bowel Movements 1 - Constitutional General appearance: Present: thin - EENT Eyes: Present: PERRLA Ears: bilateral: normal - Neck Neck: Present: normal ROM - Respiratory Respiratory: bilateral: diminished, rhonchi - Cardiovascular Rhythm: regular - Gastrointestinal General gastrointestinal: Present: soft - Integumentary Integumentary: Present: normal - Neurologic Neurologic: Present: CNII-XII intact - Musculoskeletal Musculoskeletal: Present: generalized weakness - Psychiatric Psychiatric: Present: A&O x's 3, appropriate affect, intact judgment & insight - Labs CBC & Chem 7: 03/13/18 18:00 03/15/18 06:24 Labs: Abnormal Lab Results - Last 24 Hours (Table) 03/14/18 03/14/18 03/14/18 Range/Units 11:31 16:30 20:25 Carbon Dioxide (22-30) mmol/L Creatinine (0.52-1.04) mg/dL POC Glucose (mg/dL) 191 H 193 H 168 H (75-99) mg/dL Glucose (74-99) mg/dL 03/15/18 03/15/18 Range/Units 06:16 06:24 Carbon Dioxide 34 H (22-30) mmol/L Creatinine 0.37 L (0.52-1.04) mg/dL POC Glucose (mg/dL) 193 H (75-99) mg/dL Glucose 177 H (74-99) mg/dL Microbiology - Last 24 Hours (Table) 03/13/18 19:10 Blood Culture - Preliminary Blood No Growth after 24 hours 03/13/18 18:00 Blood Culture - Preliminary Blood No Growth after 24 hours - Imaging and Cardiology Chest x-ray: report reviewed Assessment and Plan Plan: Assessment Community-acquired pneumonia with sepsis Acute on chronic respiratory failure hypercapnea Hypoxic History of asthma/COPD with the exacerbation History of GERD History of coronary disease with [place] Osteoarthritis with opioid dependence Daily tobacco use Plan Continue consultation with pulmonology On [facility] and mary Mccoy
--- NOTE | 2018-03-15 11:11 | P.PN ---
Subjective Progress Note Date: 03/15/18 Principal diagnosis: Exacerbation of chronic obstructive pulmonary disease, acute by tracheobronchitis and bronchopneumonia in the left lower lobe Pulmonary consult dated 03/14/2018 47-year-old female who looks much older than her stated age comes into the emergency department complaining of shortness of breath. She was admitted with a diagnosis of COPD exacerbation and possible pneumonia. The patient has multiple admissions in the hospital. We calculated 9 or 10 admissions in the last year or so. Anyway, the patient's well-known to our service. I believe I saw her the last time she was in the hospital. She continues to smoke cigarettes. She has end-stage oxygen-dependent COPD. She comes in with complaints of primarily shortness of breath. Chest x-ray may be a patchy infiltrate in the left lung. She does have chronic cough. She does produce mucus chronically. Doesn't cough up any blood. There was no fever chills chest pain chest discomfort palpitations nausea vomiting or diarrhea. In addition to COPD, she has a history of angina pectoris GERD hyperlipidemia myocardial infarction DJD respiratory failure and a number of other medical problems. She continues to smoke cigarettes which really undermines her care. She sabotaging is her own health by continuing to smoke cigarettes. She is also not very compliant in terms of following up with us in the office. On 03/15/2018 patient seen in follow-up on selective care unit. She is wearing her BiPAP most of the time, she is currently off of it, she is on 6 L per high flow nasal cannula. Her BiPAP settings of 14 and 5, and FiO2 45%. Nonproductive, lung sounds are coarse. No fever, no chills. Blood cultures remain negative to date. Patient is being treated with empiric antibiotics, IV vancomycin, IV steroids, and nebulized bronchodilators. Overall seems to be moving better air on today's exam. No other complaints, no nausea, no vomiting or diarrhea. Objective - Vital Signs Vital signs: Vital Signs Temp 97.2 F L 03/15/18 08:00 Pulse 97 03/15/18 10:44 Resp 20 03/15/18 08:00 BP 147/69 03/15/18 08:00 Pulse Ox 98 03/15/18 08:00 Intake & Output 03/14/18 03/15/18 03/15/18 18:59 06:59 18:59 Intake Total 940 350 Output Total 800 Balance 140 350 Weight 55.7 kg Intake: Oral 940 350 Output: Urine 800 Other: Voiding Method Toilet Diaper # Voids 2 1 # Bowel Movements 1 - Exam The patient's mostly BiPAP dependent, but is able to wear high flow nasal cannula periods of time. She seemed to be in [id number] distress. She is quite tachypnea. She does have conversational dyspnea, somewhat better on today's exam. HEENT examination is grossly unremarkable. Neck supple. Full range of motion. No adenopathy thyromegaly or neck vein distention. Cardiovascular examination reveals regular rhythm rate. S1-S2 normal. No S3 or S4. No discernible murmur noted. Heart sounds are distant. Lungs reveal diffuse bilateral rhonchi. Breath sounds are diminished. There is prolongation. Abdomen soft bowel sounds are heard. No masses or tenderness. Extremities are intact. No cyanosis clubbing or edema. Skin is without rash or lesion. Neurologic examination is brief but nonfocal. - Labs CBC & Chem 7: 03/13/18 18:00 03/15/18 06:24 Labs: Abnormal Lab Results - Last 24 Hours (Table) 03/14/18 03/14/18 03/14/18 Range/Units 11:31 16:30 20:25 Carbon Dioxide (22-30) mmol/L Creatinine (0.52-1.04) mg/dL POC Glucose (mg/dL) 191 H 193 H 168 H (75-99) mg/dL Glucose (74-99) mg/dL 03/15/18 03/15/18 Range/Units 06:16 06:24 Carbon Dioxide 34 H (22-30) mmol/L Creatinine 0.37 L (0.52-1.04) mg/dL POC Glucose (mg/dL) 193 H (75-99) mg/dL Glucose 177 H (74-99) mg/dL Microbiology - Last 24 Hours (Table) 03/13/18 19:10 Blood Culture - Preliminary Blood No Growth after 24 hours 03/13/18 18:00 Blood Culture - Preliminary Blood No Growth after 24 hours Assessment and Plan Plan: Assessment: COPD exacerbation complicated by tracheobronchitis and/or bronchopneumonia, left lower lobe Acute on chronic hypoxemic and hypercapnic respiratory failure History of gastroesophageal reflux disease Hyperlipidemia by history Myocardial infarction Previous history of pneumonia Ongoing tobacco use with nicotine addiction History of cervical cancer, status post hysterectomy Multiple other medical problems and comorbidities Plan: Continue current medical treatment, continue antibiotic coverage, cultures remained negative, no significant phlegm production, no hemoptysis, no fever or chills. She is able to come off the BiPAP support for short periods time, still remains on it most of the day. Nebulized bronchodilators. I performed a history & physical examination of the patient and discussed their management with my nurse practitioner, Elida Agarwal. I reviewed the nurse practitioner's note and agree with the documented findings and plan of care. Lung sounds are positive for diminished and coarse breath sounds. The findings and the impression was discussed with the patient. I attest to the documentation by the nurse practitioner. Time with Patient: Less than 30
[2018-03-15] MEDS: IBUPROFEN 600 MG TAB PO PRN ×2 (11:23→19:47)
[2018-03-15] MEDS: MULTIVITAMINS, THERA 1 EACH TAB PO SCH (11:24)
[2018-03-15 11:36] LABS: Glucose,Whole Blood 201 mg/dL (75-99)
[2018-03-15 17:06] LABS: Glucose,Whole Blood 199 mg/dL (75-99)
[2018-03-15 19:30] LABS: Glucose,Whole Blood 192 mg/dL (75-99)
[2018-03-15] MEDS: risperiDONE 1 MG TAB PO SCH (19:48)
[2018-03-15] MEDS: traZODone HCL 100 MG TAB PO SCH (19:49)
[2018-03-16] MEDS: VANCOMYCIN 1,000 MG in SODIUM CHLORIDE 0.9% 250 ML IVPB SCH ×4 (04:46→20:26)
[2018-03-16] MEDS: methylPREDNISolone SOD SUCCI 125 MG/2 ML VIAL IV SCH ×4 (04:46→20:28)
[2018-03-16] MEDS: PANTOPRAZOLE 40 MG TABLET PO SCH (06:02)
[2018-03-16 06:04] LABS: Glucose,Whole Blood 199 mg/dL (75-99)
[2018-03-16] MEDS: INSULIN ASPART 100 UNIT/ML 1 ML 10 ML VIAL SQ SCH ×4 (06:07→20:36)
[2018-03-16] MEDS: IPRATROPIUM-ALBUTEROL 3 ML NEB INHALATION PRN (06:09)
[2018-03-16] MEDS: HYDROcodone/APAP 10-325MG 1 EACH TAB PO SCH ×3 (06:42→20:26)
[2018-03-16] MEDS: IBUPROFEN 600 MG TAB PO PRN (06:42)
[2018-03-16] MEDS: PREGABALIN 75 MG CAP PO SCH ×2 (08:37→20:36)
[2018-03-16] MEDS: THEOPHYLLINE 24 HOUR 200 MG CAP.ER.24H PO SCH ×2 (08:38→20:36)
[2018-03-16] MEDS: FLUTICASONE 50MCG/SPRAY NASAL 16GM EA NOSTRIL SCH (08:38)
[2018-03-16] MEDS: LORazepam 0.5 MG TAB PO PRN ×2 (08:38→15:48)
[2018-03-16] MEDS: VERAPAMIL SR 180 MG TABLET.ER PO SCH (08:38)
[2018-03-16] MEDS: NICOTINE 21MG/24HR PATCH TRANSDERM SCH (08:39)
[2018-03-16] MEDS: FORMOTEROL FUMARATE 20 MCG/2 ML NEBU INHALATION SCH ×2 (09:13→18:40)
[2018-03-16] MEDS: IPRATROPIUM-ALBUTEROL 3 ML NEB INHALATION SCH ×4 (11:28→18:40)
[2018-03-16] MEDS: BUDESONIDE 1 MG/2 ML NEBU INHALATION SCH ×2 (11:28→18:40)
--- NOTE | 2018-03-16 11:33 | P.PN ---
Subjective Patient sitting up in bed states she has some improvement hopeful discharge tomorrow Objective - Vital Signs Vital signs: Vital Signs Temp 95.5 F L 03/16/18 08:00 Pulse 92 03/16/18 09:23 Resp 18 03/16/18 08:00 BP 132/71 03/16/18 08:00 Pulse Ox 98 03/16/18 08:00 Intake & Output 03/15/18 03/16/18 03/16/18 18:59 06:59 18:59 Intake Total 1330 240 Output Total 2400 1 Balance -1070 -1 240 Weight 55.8 kg Intake: Intake, IV Titration 250 Amount Vancomycin 1,000 mg In 250 Sodium Chloride 0.9% 250 ml @ 125 mls/hr IVPB Q6H [facility] Rx#:[id number] Oral 1080 240 Output: Urine 2400 Urine/Stool Mix 1 Other: # Voids 3 1 # Bowel Movements 1 - Constitutional General appearance: Present: thin - EENT Eyes: Present: PERRLA Ears: bilateral: normal - Neck Neck: Present: normal ROM - Respiratory Respiratory: bilateral: diminished, rhonchi - Cardiovascular Rhythm: regular - Gastrointestinal General gastrointestinal: Present: soft - Neurologic Neurologic: Present: CNII-XII intact - Musculoskeletal Musculoskeletal: Present: generalized weakness - Psychiatric Psychiatric: Present: A&O x's 3, appropriate affect, intact judgment & insight - Labs CBC & Chem 7: 03/13/18 18:00 03/15/18 06:24 Labs: Abnormal Lab Results - Last 24 Hours (Table) 03/15/18 03/15/18 03/15/18 Range/Units 11:31 17:02 19:29 POC Glucose (mg/dL) 201 H 199 H 192 H (75-99) mg/dL 03/16/18 Range/Units 06:02 POC Glucose (mg/dL) 199 H (75-99) mg/dL Microbiology - Last 24 Hours (Table) 03/13/18 19:10 Blood Culture - Preliminary Blood No Growth after 48 hours 03/13/18 18:00 Blood Culture - Preliminary Blood No Growth after 48 hours - Imaging and Cardiology Chest x-ray: report reviewed Assessment and Plan Plan: Assessment Community-acquired pneumonia with sepsis Acute on chronic hypercapnia hypoxic respiratory failure History of asthma/COPD with exacerbation Tobacco use GERD Coronary disease with history of MT Osteoarthritis with opioid dependence Plan Continue consultation with pulmonology hopeful discharge tomorrow Continues on vancomycin and Levaquin
[2018-03-16 11:57] LABS: Glucose,Whole Blood 145 mg/dL (75-99)
[2018-03-16] MEDS: MULTIVITAMINS, THERA 1 EACH TAB PO SCH (12:09)
--- NOTE | 2018-03-16 15:05 | P.PN ---
Subjective Progress Note Date: 03/16/18 Principal diagnosis: Exacerbation of chronic obstructive pulmonary disease, acute by tracheobronchitis and bronchopneumonia in the left lower lobe Pulmonary consult dated 03/14/2018 47-year-old female who looks much older than her stated age comes into the emergency department complaining of shortness of breath. She was admitted with a diagnosis of COPD exacerbation and possible pneumonia. The patient has multiple admissions in the hospital. We calculated 9 or 10 admissions in the last year or so. Anyway, the patient's well-known to our service. I believe I saw her the last time she was in the hospital. She continues to smoke cigarettes. She has end-stage oxygen-dependent COPD. She comes in with complaints of primarily shortness of breath. Chest x-ray may be a patchy infiltrate in the left lung. She does have chronic cough. She does produce mucus chronically. Doesn't cough up any blood. There was no fever chills chest pain chest discomfort palpitations nausea vomiting or diarrhea. In addition to COPD, she has a history of angina pectoris GERD hyperlipidemia myocardial infarction DJD respiratory failure and a number of other medical problems. She continues to smoke cigarettes which really undermines her care. She sabotaging is her own health by continuing to smoke cigarettes. She is also not very compliant in terms of following up with us in the office. On 03/15/2018 patient seen in follow-up on selective care unit. She is wearing her BiPAP most of the time, she is currently off of it, she is on 6 L per high flow nasal cannula. Her BiPAP settings of 14 and 5, and FiO2 45%. Nonproductive, lung sounds are coarse. No fever, no chills. Blood cultures remain negative to date. Patient is being treated with empiric antibiotics, IV vancomycin, IV steroids, and nebulized bronchodilators. Overall seems to be moving better air on today's exam. No other complaints, no nausea, no vomiting or diarrhea. On 03/16/2018 patient seen in follow-up on selective care unit. She has been wearing her BiPAP at bedtime, able stay off BiPAP support for longer periods of time, currently on 6 L oxygen per high flow nasal cannula, she is afebrile, hemodynamically stable. Physical exam revealed better air entry bilaterally. No new chest x-ray, no fever, no chills, and is at times able to bring up some sputum. Blood cultures remain negative. She continues on vancomycin for empiric antibiotic coverage. Continue with current medical treatment. Objective - Vital Signs Vital signs: Vital Signs Temp 97.9 F 03/16/18 12:00 Pulse 81 03/16/18 12:00 Resp 21 03/16/18 12:00 BP 122/71 03/16/18 12:00 Pulse Ox 99 03/16/18 12:00 Intake & Output 03/15/18 03/16/18 03/16/18 18:59 06:59 18:59 Intake Total 1330 1210 Output Total 2400 1 600 Balance -1070 -1 610 Weight 55.8 kg Intake: IV 120 .9 120 Intake, IV Titration 250 250 Amount Vancomycin 1,000 mg In 250 250 Sodium Chloride 0.9% 250 ml @ 125 mls/hr IVPB Q6H [facility] Rx#:[id number] Oral 1080 840 Output: Urine 2400 600 Urine/Stool Mix 1 Other: # Voids 3 1 # Bowel Movements 1 1 - Exam The patient's mostly BiPAP dependent, but is able to wear high flow nasal cannula periods of time. She seemed to be in [id number] distress. She is quite tachypnea. She does have conversational dyspnea, somewhat better on today's exam. HEENT examination is grossly unremarkable. Neck supple. Full range of motion. No adenopathy thyromegaly or neck vein distention. Cardiovascular examination reveals regular rhythm rate. S1-S2 normal. No S3 or S4. No discernible murmur noted. Heart sounds are distant. Lungs reveal diffuse bilateral rhonchi. Prolonged expiratory phase, but moving better air on today's exam Abdomen soft bowel sounds are heard. No masses or tenderness. Extremities are intact. No cyanosis clubbing or edema. Skin is without rash or lesion. Neurologic examination is brief but nonfocal. - Labs CBC & Chem 7: 03/13/18 18:00 03/15/18 06:24 Labs: Abnormal Lab Results - Last 24 Hours (Table) 03/15/18 03/15/18 03/16/18 Range/Units 17:02 19:29 06:02 POC Glucose (mg/dL) 199 H 192 H 199 H (75-99) mg/dL 03/16/18 Range/Units 11:55 POC Glucose (mg/dL) 145 H (75-99) mg/dL Microbiology - Last 24 Hours (Table) 03/13/18 19:10 Blood Culture - Preliminary Blood No Growth after 48 hours 03/13/18 18:00 Blood Culture - Preliminary Blood No Growth after 48 hours Assessment and Plan Plan: Assessment: COPD exacerbation complicated by tracheobronchitis and/or bronchopneumonia, left lower lobe Acute on chronic hypoxemic and hypercapnic respiratory failure History of gastroesophageal reflux disease Hyperlipidemia by history Myocardial infarction Previous history of pneumonia Ongoing tobacco use with nicotine addiction History of cervical cancer, status post hysterectomy Multiple other medical problems and comorbidities Plan: Continue current antibiotic coverage, overall patient is stable, improving, able to stay off BiPAP for longer periods of time during the day, continue with current IV Solu-Medrol dose, nebulized bronchodilators. Increase activity as tolerated. Continue to follow. Patient may possibly be considered for discharge home in the next 24 hours, provided she remains stable and is improving. Smoking cessation was again encouraged. We'll obtain repeat chest x -ray in the morning. I performed a history & physical examination of the patient and discussed their management with my nurse practitioner, Elida Agarwal. I reviewed the nurse practitioner's note and agree with the documented findings and plan of care. Lung sounds are positive for diminished and coarse breath sounds. The findings and the impression was discussed with the patient. I attest to the documentation by the nurse practitioner. Time with Patient: Less than 30
[2018-03-16 16:45] LABS: Glucose,Whole Blood 215 mg/dL (75-99)
[2018-03-16 20:34] LABS: Glucose,Whole Blood 148 mg/dL (75-99)
[2018-03-16] MEDS: risperiDONE 1 MG TAB PO SCH (20:36)
[2018-03-16] MEDS: traZODone HCL 100 MG TAB PO SCH (20:36)
[2018-03-17] MEDS: IPRATROPIUM-ALBUTEROL 3 ML NEB INHALATION PRN ×2 (00:49→04:59)
[2018-03-17] MEDS: methylPREDNISolone SOD SUCCI 125 MG/2 ML VIAL IV SCH ×3 (01:11→10:33)
[2018-03-17] MEDS: VANCOMYCIN 1,000 MG in SODIUM CHLORIDE 0.9% 250 ML IVPB SCH ×2 (02:17→10:33)
[2018-03-17] MEDS: IBUPROFEN 600 MG TAB PO PRN (04:47)
[2018-03-17 05:55] LABS: Glucose,Whole Blood 87 mg/dL (75-99)
[2018-03-17] MEDS: INSULIN ASPART 100 UNIT/ML 1 ML 10 ML VIAL SQ SCH ×2 (05:55→11:46)
[2018-03-17] MEDS: PANTOPRAZOLE 40 MG TABLET PO SCH (06:32)
[2018-03-17] MEDS ORDERED: VANCOMYCIN TROUGH DUE 1 EACH MISC MISCELLANE ONE (08:00)
[2018-03-17] MEDS: PREGABALIN 75 MG CAP PO SCH (08:01)
[2018-03-17] MEDS: HYDROcodone/APAP 10-325MG 1 EACH TAB PO SCH (08:01)
[2018-03-17] MEDS: FLUTICASONE 50MCG/SPRAY NASAL 16GM EA NOSTRIL SCH (08:02)
[2018-03-17] MEDS: THEOPHYLLINE 24 HOUR 200 MG CAP.ER.24H PO SCH (08:02)
[2018-03-17] MEDS: NICOTINE 21MG/24HR PATCH TRANSDERM SCH ×2 (08:02→08:09)
[2018-03-17] MEDS: VERAPAMIL SR 180 MG TABLET.ER PO SCH (08:03)
[2018-03-17] MEDS: BUDESONIDE 1 MG/2 ML NEBU INHALATION SCH (08:29)
[2018-03-17] MEDS: IPRATROPIUM-ALBUTEROL 3 ML NEB INHALATION SCH ×2 (08:32→11:43)
[2018-03-17] MEDS: FORMOTEROL FUMARATE 20 MCG/2 ML NEBU INHALATION SCH (08:32)
[2018-03-17] MEDS: LORazepam 0.5 MG TAB PO PRN (08:56)
[2018-03-17 11:42] VITALS: RESP 18
[2018-03-17 11:45] LABS: Glucose,Whole Blood 100 mg/dL (75-99)
[2018-03-17] MEDS: MULTIVITAMINS, THERA 1 EACH TAB PO SCH (11:46)
--- NOTE | 2018-03-17 13:05 | P.PN ---
Subjective Progress Note Date: 03/17/18 Principal diagnosis: Exacerbation of chronic obstructive pulmonary disease, acute by tracheobronchitis and bronchopneumonia in the left lower lobe Pulmonary consult dated 03/14/2018 47-year-old female who looks much older than her stated age comes into the emergency department complaining of shortness of breath. She was admitted with a diagnosis of COPD exacerbation and possible pneumonia. The patient has multiple admissions in the hospital. We calculated 9 or 10 admissions in the last year or so. Anyway, the patient's well-known to our service. I believe I saw her the last time she was in the hospital. She continues to smoke cigarettes. She has end-stage oxygen-dependent COPD. She comes in with complaints of primarily shortness of breath. Chest x-ray may be a patchy infiltrate in the left lung. She does have chronic cough. She does produce mucus chronically. Doesn't cough up any blood. There was no fever chills chest pain chest discomfort palpitations nausea vomiting or diarrhea. In addition to COPD, she has a history of angina pectoris GERD hyperlipidemia myocardial infarction DJD respiratory failure and a number of other medical problems. She continues to smoke cigarettes which really undermines her care. She sabotaging is her own health by continuing to smoke cigarettes. She is also not very compliant in terms of following up with us in the office. On 03/15/2018 patient seen in follow-up on selective care unit. She is wearing her BiPAP most of the time, she is currently off of it, she is on 6 L per high flow nasal cannula. Her BiPAP settings of 14 and 5, and FiO2 45%. Nonproductive, lung sounds are coarse. No fever, no chills. Blood cultures remain negative to date. Patient is being treated with empiric antibiotics, IV vancomycin, IV steroids, and nebulized bronchodilators. Overall seems to be moving better air on today's exam. No other complaints, no nausea, no vomiting or diarrhea. On 03/16/2018 patient seen in follow-up on selective care unit. She has been wearing her BiPAP at bedtime, able stay off BiPAP support for longer periods of time, currently on 6 L oxygen per high flow nasal cannula, she is afebrile, hemodynamically stable. Physical exam revealed better air entry bilaterally. No new chest x-ray, no fever, no chills, and is at times able to bring up some sputum. Blood cultures remain negative. She continues on vancomycin for empiric antibiotic coverage. Continue with current medical treatment. On 03/17/2018 patient seen in follow-up. Continues to improve, currently on 6 L per nasal cannula, pulse ox is 99%, she is wearing BiPAP as needed. Reports being less dyspneic, and less chest tightness. Occasional cough, with production of some sputum. Blood cultures remain negative to date. Patient remains on empiric antibiotics in the form of vancomycin. No chest congestion. Fever, no chills, no chest wall tenderness. Ordered a chest x-ray, however he was scheduled for tomorrow, but in view of clinical improvement, there is no need to repeat a chest x-ray today. From pulmonary standpoint patient can be discharged home on oral course of antibiotics and prednisone taper, and her maintenance inhalers and nebulized treatments. Follow-up with Dr. Molina in the office in 7-10 days. Objective - Vital Signs Vital signs: Vital Signs Temp 97.7 F 03/17/18 08:00 Pulse 84 03/17/18 11:57 Resp 18 03/17/18 08:00 BP 142/81 03/17/18 08:00 Pulse Ox 99 03/17/18 08:00 Intake & Output 03/16/18 03/17/18 03/17/18 18:59 06:59 18:59 Intake Total 1654 490 240 Output Total 600 Balance 1054 490 240 Weight 55.1 kg Intake: IV 120 .9 120 Intake, IV Titration 250 250 Amount Vancomycin 1,000 mg In 250 250 Sodium Chloride 0.9% 250 ml @ 125 mls/hr IVPB Q6H [facility] Rx#:[id number] Oral 1284 240 240 Output: Urine 600 Other: Voiding Method Toilet Diaper # Voids 2 # Bowel Movements 1 - Exam The patient's 6 L per nasal cannula, wears a BiPAP as needed and at bedtime, but is able to wear high flow nasal cannula periods of time. Improving, his mild conversational dyspnea. HEENT examination is grossly unremarkable. Neck supple. Full range of motion. No adenopathy thyromegaly or neck vein distention. Cardiovascular examination reveals regular rhythm rate. S1-S2 normal. No S3 or S4. No discernible murmur noted. Heart sounds are distant. Lungs reveal diminished breath sounds, with some scattered rhonchi Abdomen soft bowel sounds are heard. No masses or tenderness. Extremities are intact. No cyanosis clubbing or edema. Skin is without rash or lesion. Neurologic examination is brief but nonfocal. - Labs CBC & Chem 7: 03/13/18 18:00 03/15/18 06:24 Labs: Abnormal Lab Results - Last 24 Hours (Table) 03/16/18 03/16/18 03/17/18 Range/Units 16:44 20:33 11:24 POC Glucose (mg/dL) 215 H 148 H 100 H (75-99) mg/dL Microbiology - Last 24 Hours (Table) 03/13/18 19:10 Blood Culture - Preliminary Blood No Growth after 72 hours 03/13/18 18:00 Blood Culture - Preliminary Blood No Growth after 72 hours Assessment and Plan Plan: Assessment: COPD exacerbation complicated by tracheobronchitis and/or bronchopneumonia, left lower lobe Acute on chronic hypoxemic and hypercapnic respiratory failure History of gastroesophageal reflux disease Hyperlipidemia by history Myocardial infarction Previous history of pneumonia Ongoing tobacco use with nicotine addiction History of cervical cancer, status post hysterectomy Multiple other medical problems and comorbidities Plan: Patient is stable, and is improving. No need to repeat chest x-ray today. Afebrile, no chills, no worsening dyspnea. Patient has a Trilogy vent at home, she can wear it is needed. She has a nebulizer machine, oxygen. Patient can be discharged home today on oral antibiotics, prednisone taper, and she can resume her nebulized treatments and inhalers. Follow up with Dr. Molina in 7- 10 days. I performed a history & physical examination of the patient and discussed their management with my nurse practitioner, Elida Agarwal. I reviewed the nurse practitioner's note and agree with the documented findings and plan of care. Lung sounds are positive for diminished and coarse breath sounds. The findings and the impression was discussed with the patient. I attest to the documentation by the nurse practitioner. Time with Patient: Less than 30
[2018-03-17 13:35] VITALS: BP 130/81; PULSE 82; TEMP 96.8
--- NOTE | 2018-03-17 14:37 | DS ---
DISCHARGE SUMMARY I am covering for Dr. Italo John. DATE OF SERVICE: 03/17/2018 FINAL DIAGNOSES: 1. Chronic obstructive pulmonary disease exacerbation with acute community- acquired pneumonia with sepsis present on admission. 2. Acute on chronic hypercapnic respiratory failure. 3. History of asthma, chronic obstructive pulmonary disease. 4. History of nicotine dependence. 5. Gastroesophageal reflux disease. 6. Coronary artery disease with myocardial infarction. 7. Degenerative joint disease with opioid dependence. DISCHARGE DISPOSITION: Patient will be discharged in a stable condition with guarded prognosis. Dr. Lino cleared the patient for discharge. Patient is extremely keen on going home. HISTORY OF PRESENT ILLNESS: This is a 47-year-old woman with a past medical history of multiple medical problems, aspiration, being followed by Dr. John in the outpatient setting, admitted with COPD and as well as pneumonia. Patient treated symptomatically. Patient was treated symptomatically. Patient improved significantly. Dr. Lino saw the patient. On exam, vitals are stable. CARDIOVASCULAR SYSTEM: S1, S2. RESPIRATION: A few scattered rhonchi, no crackles. Abdomen is soft. NERVOUS SYSTEM: No focal deficits. Smoking cessation has been advised. Discharge diet is cardiac diet. Activity limited until followup. Follow up with Dr. Italo John un 2-3 days. Follow up with Dr. Molina as recommended. MEDICATIONS: 1. Albuterol p.r.n. 2. Norvasc 10 mg p.o. daily. 3. Calcium with vitamin D 1 p.o. daily. 4. Fluticasone 2 sprays daily. 5. [place] 5 mg b.i.d. p.r.n. 6. Motrin 600 mg b.i.d. p.r.n. 7. Prilosec 40 mg p.o. b.i.d. 8. Prednisone taper and then subsequently at home. 9. Lyrica 150 mg p.o. b.i.d. 10.Risperdal 3 mg q.h.s. 11.Akhil-24 two hundred mg p.o. b.i.d. 12.Trazodone 300 mg q.h.s. 13.anora Ellipta 1 puff daily. 14.Verapamil 120 mg p.o. daily. 15.Symbicort 160/4.5 two puffs b.i.d. 16.DuoNeb q.i.d. and p.r.n. 17.Levaquin 500 mg p.o. daily for 5 days. 18.Multivitamin 1 p.o. daily.. 19.Prednisone taper. Once again, the patient will be discharged in a stable condition with a guarded prognosis. MMMADINAL / LEESA: [id number] / MTDD
== END 2018-03-17 13:47 | disposition home or self-care (01) | DRG 871 ==
LOC: EC 17:56 → 6SEL 19:55
PROVIDERS: ADMIT Family Medicine; ATTEND Family Medicine
DX: A41.9 Sepsis, unspecified organism (principal); J18.0 Bronchopneumonia, unspecified organism; J96.21 Acute and chronic respiratory failure with hypoxia; J96.22 Acute and chronic respiratory failure with hypercapnia; F11.20 Opioid dependence, uncomplicated; J44.0 Chronic obstructive pulmonary disease with (acute) lower respiratory infection; J44.1 Chronic obstructive pulmonary disease with (acute) exacerbation; E78.5 Hyperlipidemia, unspecified; F17.210 Nicotine dependence, cigarettes, uncomplicated; F32.9 Major depressive disorder, single episode, unspecified; F41.9 Anxiety disorder, unspecified; G25.81 Restless legs syndrome; I25.10 Atherosclerotic heart disease of native coronary artery without angina pectoris; I25.2 Old myocardial infarction; I27.20 Pulmonary hypertension, unspecified; K21.9 Gastro-esophageal reflux disease without esophagitis; M19.90 Unspecified osteoarthritis, unspecified site; Z79.51 Long term (current) use of inhaled steroids; Z79.52 Long term (current) use of systemic steroids; Z79.82 Long term (current) use of aspirin; Z79.899 Other long term (current) drug therapy; Z85.41 Personal history of malignant neoplasm of cervix uteri; Z87.01 Personal history of pneumonia (recurrent); Z87.11 Personal history of peptic ulcer disease; Z90.710 Acquired absence of both cervix and uterus; Z99.81 Dependence on supplemental oxygen; Z81.1 Family history of alcohol abuse and dependence; H26.9 Unspecified cataract; Z86.14 Personal history of Methicillin resistant Staphylococcus aureus infection; Z71.6 Tobacco abuse counseling; M81.0 Age-related osteoporosis without current pathological fracture; Z88.1 Allergy status to other antibiotic agents; Z88.5 Allergy status to narcotic agent; Z88.2 Allergy status to sulfonamides; Z88.8 Allergy status to other drugs, medicaments and biological substances
CPT/HCPCS: 36415; 71045; 80048; 80053; 80202; 82550; 82553; 83036; 83605; 83880; 84484; 85025; 85610; 85730; 87040; 87070; 87205; 93005; 94640; 94660; 94760; 96360; 96365; 96375; 99291

== ENCOUNTER 2018-03-25 06:39 | Inpatient (IN) | payer OTHER ==
[2018-03-25] MEDS ORDERED: IPRATROPIUM 0.5 MG/2.5 ML NEBU INHALATION STA (07:03)
[2018-03-25] MEDS ORDERED: ALBUTEROL NEBULIZED 2.5 MG/3 ML INHALATION STA (07:03)
[2018-03-25] MEDS ORDERED: SODIUM CHLORIDE 0.9% 500 ML IV ONE (07:14)
[2018-03-25] MEDS ORDERED: MAGNESIUM SULFATE-D5W PMX 1 GM in DEXTROSE/WATER 1 100ML.BAG IVPB ONE (07:14)
[2018-03-25 07:18] LABS: Anisocytosis Slight; Basophils % (A) 0 %; Eosinophils # (A) 0.1 k/uL (0-0.7); Eosinophils % (A) 1 %; HCT 38.1 % (34.0-46.0); HGB 11.9 gm/dL (11.4-16.0); Hypochromasia Moderate; Lymphocytes # (A) 2.6 k/uL (1.0-4.8); Lymphocytes % (A) 14 %; MCH 26.1 pg (25.0-35.0); MCHC 31.1 g/dL (31.0-37.0); Mean Platelet Volume 6.1; Monocytes # (A) 0.6 k/uL (0-1.0); Monocytes % (A) 3 %; Neutrophils # (A) 15.4 k/uL (1.3-7.7); Neutrophils % (A) 81 %; Platelet Count 575 k/uL (150-450); RBC 4.54 m/uL (3.80-5.40); RDW 16.3 % (11.5-15.5)
--- NOTE | 2018-03-25 07:18 | ED ---
General Adult HPI - General Chief complaint: Shortness of Breath Stated complaint: YOHANA Time Seen by Provider: 03/25/18 07:03 Source: patient, EMS, RN notes reviewed, old records reviewed Mode of arrival: EMS Limitations: no limitations - History of Present Illness Initial comments: 47-year-old female presenting with severe dyspnea. Patient has history of COPD , she is currently on 6 L of home oxygen. She states over the past 2 days she' s had worsening cough and dyspnea. Cough is productive of white sputum. Patient is brought in by EMS on BiPAP for severe respiratory distress. History is limited secondary to respiratory distress as well as uses BiPAP machine. She does have some central chest pain which she states is worse with cough. She denies fever or chills. Denies abdominal pain. Denies nausea vomiting. - Related Data Home Medications Medication Instructions Recorded Confirmed Albuterol Inhaler [Ventolin Hfa 2 puff INHALATION RT-QID PRN 01/03/14 03/25/18 Inhaler] Omeprazole [PriLOSEC] 40 mg PO BID 01/03/14 03/25/18 risperiDONE 3 mg PO HS 12/24/14 03/25/18 traZODone HCL 300 mg PO HS 12/24/14 03/25/18 Theophylline 24 Hour [Akhil-24] 200 mg PO BID 07/06/17 03/25/18 Fluticasone Nasal [place] [Flonase 2 spray EA NOSTRIL DAILY 12/21/17 03/25/18 Nasal [place]] Pregabalin [Lyrica] 150 mg PO BID 12/21/17 03/25/18 predniSONE 20 mg PO DAILY 01/19/18 03/25/18 Grant/D3/Mag11/Zinc/[employer] Operator/Gianni/Bor 1 tab PO DAILY 03/13/18 03/25/18 [Caltrate 600+D Plus Tablet] HYDROcodone/APAP 5-325MG [[place] 1 tab PO BID PRN 03/13/18 03/25/18 5-325] Ibuprofen [Motrin] 600 mg PO BID PRN 03/13/18 03/25/18 Umeclidinium [place] [Incruse 1 puff INHALATION RT-DAILY 03/13/18 03/25/18 Ellipta] Verapamil HCl [Verapamil ER] 180 mg PO DAILY 03/13/18 03/25/18 amLODIPine [Norvasc] 10 mg PO DAILY 03/13/18 03/25/18 Previous Rx's Medication Instructions Recorded Budesonide-Formot 160-4.5 Mcg 2 puff INHALATION RT-BID puff 07/13/16 [Symbicort 160-4.5 Mcg Inhaler] Ipratropium-Albuterol Nebulize 3 ml INHALATION RT-QID neb 01/20/17 [Duoneb 0.5 mg-3 mg/3 ml Soln] Levofloxacin [Levaquin] 500 mg PO DAILY #5 tab 03/17/18 Multivitamins, Thera [Multivitamin 1 each PO DAILY@1200 tab 03/17/18 (formulary)] predniSONE 10 mg PO DIRECTED #30 tab 03/17/18 Allergies Allergy/AdvReac Type Severity Reaction Status Date / Time aripiprazole [From Abilify] Allergy Rash/Hives Verified 03/25/18 06:45 cephalexin [From Keflex] Allergy Unknown Verified 03/25/18 06:45 honey Allergy Rash/Hives Verified 03/25/18 06:45 methadone [Methadone] Allergy Itching Verified 03/25/18 06:45 naproxen Allergy Rash/Hives Verified 03/25/18 06:45 sulfamethoxazole Allergy Rash/Hives Verified 03/25/18 06:45 [From Bactrim] tetracycline [Tetracycline] Allergy Rash/Hives Verified 03/25/18 06:45 trimethoprim [From Bactrim] Allergy Rash/Hives Verified 03/25/18 06:45 adhesive tape AdvReac Rash/Hives Verified 03/25/18 06:45 tramadol HCl [From Ultram] AdvReac SEIZURES Verified 03/25/18 06:45 tromethamine AdvReac Nausea & Verified 03/25/18 06:45 Vomiting Review of Systems ROS Statement: Those systems with pertinent positive or pertinent negative responses have been documented in the HPI. ROS Other: All systems not noted in ROS Statement are negative. Past Medical History Past Medical History: Asthma, Cancer, Chest Pain / Angina, COPD, Eye Disorder, GERD/Reflux, Hyperlipidemia, Myocardial Infarction ([place]), Osteoarthritis (OA), Pneumonia, Respiratory Disorder Additional Past Medical History / Comment(s): past thoracic spine fractures T8- T9, possible oseoporosis. End stage COPD , chronic hypoxic and hypercapnic respiratory failure, home O2 at 5-6L/NC and bipap at HS, steroid dependent, bronchitis, 1997 pt states she was told her EKG showed a past [place], cervical cancer with hysterectomy, PUD, carpal tunnel bilaterally, herniated discs C5-C6 and L5-L6, cervical/lumbar spondylosis, RLS, eczema, cataract L eye, tinnitis bilaterally, sinus problems. Last Myocardial Infarction Date:: UNK History of Any Multi-Drug Resistant Organisms: None Reported, MRSA Date of last positivie culture/infection: 06/18/2015 MDRO Source:: SPUTUM Past Surgical History: Section, Cholecystectomy, Ear Surgery, Hysterectomy, Tubal Ligation Additional Past Surgical History / Comment(s): x 2, EGD, colonoscopy with benign polypectomy, R ear cyst with surgery.. Past Anesthesia/Blood Transfusion Reactions: No Reported Reaction Additional Past Anesthesia/Blood Transfusion Reaction / Comment(s): Pt has never recieved blood. Past Psychological History: Anxiety, Bipolar, Depression Smoking Status: Current some day smoker Past Alcohol Use History: None Reported Past Drug Use History: None Reported - Past Family History Father Family Medical History: No Reported History Additional Family Medical History / Comment(s): WAS AN ALCOHOLIC Mother Family Medical History: Cancer Additional Family Medical History / Comment(s): AT AGE 54-BOWEL CANCER General Exam Limitations: no limitations General appearance: alert, in distress Head exam: Present: atraumatic, normocephalic Eye exam: Present: normal appearance, PERRL, EOMI ENT exam: Present: mucous membranes dry Neck exam: Present: normal inspection. Absent: tenderness, meningismus Respiratory exam: Present: respiratory distress, wheezes, rhonchi, accessory muscle use, decreased breath sounds, prolonged expiratory Cardiovascular Exam: Present: normal rhythm, tachycardia GI/Abdominal exam: Present: soft. Absent: distended, tenderness, guarding Extremities exam: Present: normal inspection, normal capillary refill. Absent: pedal edema, calf tenderness Back exam: Present: normal inspection, full ROM Neurological exam: Present: alert, oriented X3, CN II-XII intact. Absent: motor sensory deficit Psychiatric exam: Present: normal affect, normal mood Skin exam: Present: warm, dry, intact. Absent: cyanosis, diaphoretic Course Vital Signs 03/25/18 03/25/18 03/25/18 06:41 07:35 07:45 Temperature 97.6 F Pulse Rate 121 H 109 H 112 H Respiratory 20 24 Rate Blood Pressure 166/90 146/90 O2 Sat by Pulse 96 94 L Oximetry 03/25/18 07:56 Temperature Pulse Rate 96 Respiratory Rate Blood Pressure O2 Sat by Pulse Oximetry EKG Findings - EKG Comments: EKG Findings:: EKG: Sinus tachycardia, biatrial enlargement, left axis deviation , rate of 123, [place] interval 126, QRS duration 80, QTC 492. ST segment elevation Medical Decision Making - Medical Decision Making 47-year-old female with end-stage COPD presenting with severe dyspnea and respiratory failure requiring BiPAP. Patient took 3 breathing treatments at home as well as given 1 by EMS. She was placed on BiPAP prior to arrival. She is in moderate to severe respiratory distress the time my evaluation. She is given additional 5 mg of albuterol, as well as magnesium sulfate. She is continued on BiPAP. Laboratory studies reveal white blood cell count 19.0 which is significantly down trending from previous. Hemoglobin stable. Troponin is negative. Chest x-ray shows COPD with no focal pneumonia. Patient will be admitted for further respiratory support and treatment of COPD exacerbation. - Lab Data Result diagrams: 03/25/18 07:05 03/25/18 07:05 Lab Results 03/25/18 03/25/18 03/25/18 Range/Units 07:05 07:05 07:05 WBC 19.0 H (3.8-10.6) k/uL RBC 4.54 (3.80-5.40) m/uL Hgb 11.9 (11.4-16.0) gm/dL Hct 38.1 (34.0-46.0) % MCV 84.0 (80.0-100.0) fL MCH 26.1 (25.0-35.0) pg MCHC 31.1 (31.0-37.0) g/dL RDW 16.3 H (11.5-15.5) % Plt Count 575 H (150-450) k/uL Neutrophils % 81 % Lymphocytes % 14 % Monocytes % 3 % Eosinophils % 1 % Basophils % 0 % Neutrophils # 15.4 H (1.3-7.7) k/uL Lymphocytes # 2.6 (1.0-4.8) k/uL Monocytes # 0.6 (0-1.0) k/uL Eosinophils # 0.1 (0-0.7) k/uL Basophils # 0.0 (0-0.2) k/uL Hypochromasia Moderate Anisocytosis Slight PT (9.0-12.0) sec INR (<1.2) APTT (22.0-30.0) sec Sodium 140 (137-145) mmol/L Potassium 3.4 L (3.5-5.1) mmol/L Chloride 99 (98-107) mmol/L Carbon Dioxide 35 H (22-30) mmol/L Anion Gap 6 mmol/L BUN 21 H (7-17) mg/dL Creatinine 0.43 L (0.52-1.04) mg/dL Est GFR (CKD-EPI)AfAm >90 (>60 ml/min/1.73 sqM) Est GFR (CKD-EPI)NonAf >90 (>60 ml/min/1.73 sqM) Glucose 183 H (74-99) mg/dL Calcium 9.1 (8.4-10.2) mg/dL Magnesium 1.9 (1.6-2.3) mg/dL Total Bilirubin 0.3 (0.2-1.3) mg/dL AST 17 (14-36) U/L ALT 26 (9-52) U/L Alkaline Phosphatase 78 (38-126) U/L Total Creatine Kinase 25 L (30-135) U/L CK-MB (CK-2) 2.1 (0.0-2.4) ng/mL CK-MB (CK-2) Rel Index 8.4 Troponin I <0.012 (0.000-0.034) ng/mL NT-Pro-B Natriuret Pep pg/mL Total Protein 6.5 (6.3-8.2) g/dL Albumin 4.1 (3.5-5.0) g/dL 03/25/18 03/25/18 Range/Units 07:05 07:05 WBC (3.8-10.6) k/uL RBC (3.80-5.40) m/uL Hgb (11.4-16.0) gm/dL Hct (34.0-46.0) % MCV (80.0-100.0) fL MCH (25.0-35.0) pg MCHC (31.0-37.0) g/dL RDW (11.5-15.5) % Plt Count (150-450) k/uL Neutrophils % % Lymphocytes % % Monocytes % % Eosinophils % % Basophils % % Neutrophils # (1.3-7.7) k/uL Lymphocytes # (1.0-4.8) k/uL Monocytes # (0-1.0) k/uL Eosinophils # (0-0.7) k/uL Basophils # (0-0.2) k/uL Hypochromasia Anisocytosis PT 9.3 (9.0-12.0) sec INR 0.9 (<1.2) APTT 20.4 L (22.0-30.0) sec Sodium (137-145) mmol/L Potassium (3.5-5.1) mmol/L Chloride (98-107) mmol/L Carbon Dioxide (22-30) mmol/L Anion Gap mmol/L BUN (7-17) mg/dL Creatinine (0.52-1.04) mg/dL Est GFR (CKD-EPI)AfAm (>60 ml/min/1.73 sqM) Est GFR (CKD-EPI)NonAf (>60 ml/min/1.73 sqM) Glucose (74-99) mg/dL Calcium (8.4-10.2) mg/dL Magnesium (1.6-2.3) mg/dL Total Bilirubin (0.2-1.3) mg/dL AST (14-36) U/L ALT (9-52) U/L Alkaline Phosphatase (38-126) U/L Total Creatine Kinase (30-135) U/L CK-MB (CK-2) (0.0-2.4) ng/mL CK-MB (CK-2) Rel Index Troponin I (0.000-0.034) ng/mL NT-Pro-B Natriuret Pep 69 pg/mL Total Protein (6.3-8.2) g/dL Albumin (3.5-5.0) g/dL Critical Care Time Critical Care Time: Yes Total Critical Care Time: 35 Disposition Clinical Impression: Acute exacerbation of chronic obstructive airways disease Disposition: ADMITTED IP TO THIS HOSP Condition: Serious Is patient prescribed a controlled substance at d/c from ED?: No Referrals: Italo John MD [Primary Care Provider] - 1-2 days Decision to Admit Reason: Admit from EC Decision Date: 03/25/18 Decision Time: 08:23
[2018-03-25] MEDS ORDERED: ACETAMINOPHEN TAB 325 MG TAB PO STA (07:22)
[2018-03-25 07:28] LABS: ALT 26 U/L (9-52); AST 17 U/L (14-36); Albumin 4.1 g/dL (3.5-5.0); Alkaline Phosphatase 78 U/L (38-126); Anion Gap 6 mmol/L; Blood Urea Nitrogen 21 mg/dL (7-17); Calcium 9.1 mg/dL (8.4-10.2); Carbon Dioxide 35 mmol/L (22-30); Chloride 99 mmol/L (98-107); Glucose 183 mg/dL (74-99); Magnesium 1.9 mg/dL (1.6-2.3); Potassium 3.4 mmol/L (3.5-5.1); Sodium 140 mmol/L (137-145); Total Bilirubin 0.3 mg/dL (0.2-1.3); Total Protein 6.5 g/dL (6.3-8.2)
[2018-03-25 07:40] LABS: Creatine Kinase 25 U/L (30-135)
[2018-03-25 07:50] LABS: INR 0.9 (<1.2); Partial Thromboplastin Time 20.4 sec (22.0-30.0); Prothrombin Time 9.3 sec (9.0-12.0)
[2018-03-25 07:52] LABS: Creatine Kinase MB 2.1 ng/mL (0.0-2.4); Troponin I <0.012 ng/mL (0.000-0.034)
--- NOTE | 2018-03-25 07:54 | XR ---
EXAMINATION TYPE: XR chest 1V portable DATE OF EXAM: 03/25/2018 HISTORY: YOHANA. REFERENCE: Previous study dated [id number]. FINDINGS: The lungs are overinflated. Interstitial infiltrates have improved. There is some continuin g interstitial change on the left. The heart is not enlarged. No definite pleural fluid is seen. IMPRESSION: 1. COPD. 2. IMPROVED AERATION, BOTH LUNG BASES
[2018-03-25] MEDS ORDERED: ALBUTEROL NEBULIZED 2.5 MG/3 ML INHALATION PRN (08:20)
[2018-03-25] MEDS: SODIUM CHLORIDE 0.9% 1,000 ML IV SCH ×2 (08:48→22:50)
[2018-03-25] MEDS ORDERED: MORPHINE SULFATE 2 MG/ML SYRINGE IVP STA (08:52)
[2018-03-25] MEDS: AZITHROMYCIN 500 MG TAB PO SCH (11:01)
[2018-03-25] MEDS: IPRATROPIUM-ALBUTEROL 3 ML NEB INHALATION SCH ×3 (11:08→18:58)
[2018-03-25] MEDS: methylPREDNISolone SOD SUCCI 125 MG/2 ML VIAL IV SCH ×3 (13:13→22:51)
[2018-03-25] MEDS: MORPHINE SULFATE 2 MG/ML SYRINGE IVP PRN ×3 (13:19→20:21)
--- NOTE | 2018-03-25 13:35 | P.HPIM ---
History of Present Illness This is a pleasant 47 years old female with past medical history of asthma, cancer, chest pain and coronary artery disease, COPD, GERD, hyperlipidemia, osteoarthritis, history of thoracic spine fractures T8/T9. Patient is steroid tipped pending and she is on home oxygen 5-6 L/m via NC and BiPAP at night for obstructive sleep apnea/COPD. she presents with progressively worsening dyspnea over several day duration, worse over the last 2 days, associated with worsening cough and yellowish greenish phlegm. Associated with central chest pain worse with coughing. she still smokes cigarettes , states they are few and did not specify how much, pt did not want nicotine patch when offered to her In the emergency room her WBC was 19 K, hemoglobin normal at 11.9, platelets high at 575. BMP was unremarkable with normal sodium at 140, potassium 3.4 and creatinine 0.43. On admission her oxygen saturation was running between 94-97% on oxygen therapy via chest x-ray shows COPD with improved areation on both lung bases. EKG shows sinus tachycardia at 123if he can't ST-T changes In the emergency room patient received a breathing treatment and IV fluids with Tylenol and she was started on antibiotic Zithromax and steroids Review of Systems CONSTITUTIONAL: No fever, no malaise, no fatigue. HEENT: No recent visual problems or hearing problems. Denied any sore throat. CARDIOVASCULAR: No orthopnea, PND, no palpitations, no syncope. PULMONARY: No shortness of breath, no cough, no hemoptysis. GASTROINTESTINAL: No diarrhea, no nausea, no vomiting, no abdominal pain. Normoactive bowel sounds. NEUROLOGICAL: No headaches, no weakness, no numbness. HEMATOLOGICAL: Denies any bleeding or petechiae. GENITOURINARY: Denies any burning micturition, frequency, or urgency. MUSCULOSKELETAL/RHEUMATOLOGICAL: Denies any joint pain, swelling, or any muscle pain. ENDOCRINE: Denies any polyuria or polydipsia. Past Medical History Past Medical History: Asthma, Cancer, Chest Pain / Angina, COPD, Eye Disorder, GERD/Reflux, Hyperlipidemia, Myocardial Infarction ([place]), Osteoarthritis (OA), Pneumonia, Respiratory Disorder Additional Past Medical History / Comment(s): past thoracic spine fractures T8- T9, possible oseoporosis. End stage COPD , chronic hypoxic and hypercapnic respiratory failure, home O2 at 5-6L/NC and bipap at HS, steroid dependent, bronchitis, 1997 pt states she was told her EKG showed a past [place], cervical cancer with hysterectomy, PUD, carpal tunnel bilaterally, herniated discs C5-C6 and L5-L6, cervical/lumbar spondylosis, RLS, eczema, cataract L eye, tinnitis bilaterally, sinus problems. Last Myocardial Infarction Date:: UNK History of Any Multi-Drug Resistant Organisms: None Reported, MRSA Date of last positivie culture/infection: 06/18/2015 MDRO Source:: SPUTUM Past Surgical History: Section, Cholecystectomy, Ear Surgery, Hysterectomy, Tubal Ligation Additional Past Surgical History / Comment(s): x 2, EGD, colonoscopy with benign polypectomy, R ear cyst with surgery.. Past Anesthesia/Blood Transfusion Reactions: No Reported Reaction Additional Past Anesthesia/Blood Transfusion Reaction / Comment(s): Pt has never recieved blood. Past Psychological History: Anxiety, Bipolar, Depression Smoking Status: Current some day smoker Past Alcohol Use History: None Reported Past Drug Use History: None Reported - Past Family History Father Family Medical History: No Reported History Additional Family Medical History / Comment(s): WAS AN ALCOHOLIC Mother Family Medical History: Cancer Additional Family Medical History / Comment(s): AT AGE 54-BOWEL CANCER Medications and Allergies Home Medications Medication Instructions Recorded Confirmed Type Albuterol Inhaler [Ventolin Hfa 2 puff INHALATION RT-QID PRN 01/03/14 03/25/18 History Inhaler] Omeprazole [PriLOSEC] 40 mg PO BID 01/03/14 03/25/18 History risperiDONE 3 mg PO HS 12/24/14 03/25/18 History traZODone HCL 300 mg PO HS 12/24/14 03/25/18 History Budesonide-Formot 160-4.5 Mcg 2 puff INHALATION RT-BID puff 07/13/16 03/25/18 Rx [Symbicort 160-4.5 Mcg Inhaler] Ipratropium-Albuterol Nebulize 3 ml INHALATION RT-QID neb 01/20/17 03/25/18 Rx [Duoneb 0.5 mg-3 mg/3 ml Soln] Theophylline 24 Hour [Akhil-24] 200 mg PO BID 07/06/17 03/25/18 History Fluticasone Nasal [place] [Flonase 2 spray EA NOSTRIL DAILY 12/21/17 03/25/18 History Nasal [place]] Pregabalin [Lyrica] 150 mg PO BID 12/21/17 03/25/18 History predniSONE 20 mg PO DAILY 01/19/18 03/25/18 History Grant/D3/Mag11/Zinc/[place] Former/Gianni/Bor 1 tab PO DAILY 03/13/18 03/25/18 History [Caltrate 600+D Plus Tablet] HYDROcodone/APAP 5-325MG [[place] 1 tab PO BID 03/13/18 03/25/18 History 5-325] Umeclidinium [place] [Incruse 1 puff INHALATION RT-DAILY 03/13/18 03/25/18 History Ellipta] Verapamil HCl [Verapamil ER] 180 mg PO DAILY 03/13/18 03/25/18 History amLODIPine [Norvasc] 10 mg PO DAILY 03/13/18 03/25/18 History Ipratropium [place] [Atrovent Hfa] 2 puff INHALATION RT-QID PRN 03/25/18 History Multivitamins, Thera [Multivitamin 1 tab PO DAILY@1200 03/25/18 03/25/18 History (formulary)] buPROPion HCL [Wellbutrin SR] 150 mg PO HS 03/25/18 03/25/18 History hydrALAZINE HCL [Apresoline] 25 mg PO TID PRN 03/25/18 03/25/18 History predniSONE See Taper PO DAILY 03/25/18 03/25/18 History Allergies Allergy/AdvReac Type Severity Reaction Status Date / Time aripiprazole [From Abilify] Allergy Rash/Hives Verified 03/25/18 11:13 cephalexin [From Keflex] Allergy Unknown Verified 03/25/18 11:13 honey Allergy Rash/Hives Verified 03/25/18 11:13 methadone [Methadone] Allergy Itching Verified 03/25/18 11:13 naproxen Allergy Rash/Hives Verified 03/25/18 11:13 sulfamethoxazole Allergy Rash/Hives Verified 03/25/18 11:13 [From Bactrim] tetracycline [Tetracycline] Allergy Rash/Hives Verified 03/25/18 11:13 trimethoprim [From Bactrim] Allergy Rash/Hives Verified 03/25/18 11:13 adhesive tape AdvReac Rash/Hives Verified 03/25/18 11:13 tramadol HCl [From Ultram] AdvReac SEIZURES Verified 03/25/18 11:13 tromethamine AdvReac Nausea & Verified 03/25/18 11:13 Vomiting Physical Exam Vitals: Vital Signs Temp Pulse Resp BP Pulse Ox 03/25/18 11:18 87 03/25/18 11:08 86 03/25/18 11:02 96 24 112/67 94 L 03/25/18 09:49 84 18 110/96 97 03/25/18 07:56 96 03/25/18 07:45 112 H 03/25/18 07:35 109 H 24 146/90 94 L 03/25/18 06:41 97.6 F 121 H 20 166/90 96 Intake and Output 03/24/18 03/25/18 03/25/18 22:59 06:59 14:59 Other: Weight 56.699 kg GENERAL: The patient is alert and oriented x3, not in any acute distress. Well developed, well nourished. HEENT: Pupils are round and equally reacting to light. EOMI. No scleral icterus. No conjunctival pallor. Normocephalic, atraumatic. No pharyngeal erythema. No thyromegaly. CARDIOVASCULAR: S1 and S2 present. No murmurs, rubs, or gallops. -PULMONARY: Chest is clear to auscultation, no crackles. Bilateral expiratory wheezing ABDOMEN: Soft, nontender, nondistended, normoactive bowel sounds. No palpable organomegaly. MUSCULOSKELETAL: No joint swelling or deformity. EXTREMITIES: No cyanosis, clubbing, or pedal edema. NEUROLOGICAL: Gross neurological examination did not reveal any focal deficits. SKIN: No rashes. Results CBC & Chem 7: 03/25/18 07:05 03/25/18 07:05 Labs: Abnormal Lab Results - Last 24 Hours (Table) 03/25/18 03/25/18 03/25/18 Range/Units 07:05 07:05 07:05 WBC 19.0 H (3.8-10.6) k/uL RDW 16.3 H (11.5-15.5) % Plt Count 575 H (150-450) k/uL Neutrophils # 15.4 H (1.3-7.7) k/uL APTT (22.0-30.0) sec Potassium 3.4 L (3.5-5.1) mmol/L Carbon Dioxide 35 H (22-30) mmol/L BUN 21 H (7-17) mg/dL Creatinine 0.43 L (0.52-1.04) mg/dL Glucose 183 H (74-99) mg/dL Total Creatine Kinase 25 L (30-135) U/L 03/25/18 Range/Units 07:05 WBC (3.8-10.6) k/uL RDW (11.5-15.5) % Plt Count (150-450) k/uL Neutrophils # (1.3-7.7) k/uL APTT 20.4 L (22.0-30.0) sec Potassium (3.5-5.1) mmol/L Carbon Dioxide (22-30) mmol/L BUN (7-17) mg/dL Creatinine (0.52-1.04) mg/dL Glucose (74-99) mg/dL Total Creatine Kinase (30-135) U/L Assessment and Plan Plan: -Acute COPD exacerbation. Continue with steroids, oxygen, breathing treatment. Pulmonary consult: Pending. Patient is a steroids and oxygen dependent -History of obstructive sleep apnea, continue with BiPAP/CPAP -Possible tracheobronchitis, continue with antibiotics she is on Zithromax. -pleuretic chest pain , mostly related to cough , pain management -dehydration continue with IV fluids -smoker ,current, counseled but she does not want to quit, nicotine patch is offered but pt declined DVT prophylaxis on subcutaneous heparin GI prophylaxis on Pepcid PT/OT: Pending Progresses is guarded
[2018-03-25] MEDS: FAMOTIDINE 20 MG/2 ML VIAL IV SCH ×2 (14:24→22:50)
[2018-03-25] MEDS: HEPARIN SODIUM,PORCINE 5,000 UNIT/ML 1 ML VIAL SQ SCH ×2 (14:24→21:42)
[2018-03-25 17:03] LABS: Glucose,Whole Blood 159 mg/dL (75-99)
[2018-03-25] MEDS ORDERED: hydrALAZINE HCL 25 MG TAB PO PRN (20:15)
[2018-03-25] MEDS ORDERED: Potassium Replacement Protocol 1 EACH MISC MISCELLANE PRN (20:31)
[2018-03-25 21:07] LABS: Glucose,Whole Blood 147 mg/dL (75-99)
[2018-03-25] MEDS: traZODone HCL 100 MG TAB PO SCH (21:41)
[2018-03-25] MEDS: ALPRAZolam 0.25 MG TAB PO PRN (21:41)
[2018-03-25] MEDS: risperiDONE 1 MG TAB PO SCH (21:41)
[2018-03-25] MEDS: PREGABALIN 75 MG CAP PO SCH (21:41)
[2018-03-25] MEDS: POTASSIUM CHLORIDE ER 20 MEQ TAB.ER PO SCH ×2 (21:42→22:42)
[2018-03-25] MEDS: guaiFENesin SYRUP 100MG/5ML 200 MG/10 ML CUP PO PRN (21:42)
[2018-03-25] MEDS: buPROPion SR 150 MG TABLET.ER PO SCH (21:42)
[2018-03-25] MEDS: THEOPHYLLINE 24 HOUR 200 MG CAP.ER.24H PO SCH (21:43)
[2018-03-25] MEDS: INSULIN ASPART 100 UNIT/ML 1 ML 10 ML VIAL SQ SCH (21:43)
[2018-03-25] MEDS: HYDROcodone/APAP 5-325MG 1 EACH TAB PO PRN (22:43)
[2018-03-25] MEDS: IPRATROPIUM-ALBUTEROL 3 ML NEB INHALATION PRN (23:09)
[2018-03-26] MEDS: MORPHINE SULFATE 2 MG/ML SYRINGE IVP PRN ×6 (00:25→21:00)
[2018-03-26] MEDS: IPRATROPIUM-ALBUTEROL 3 ML NEB INHALATION PRN (03:01)
[2018-03-26 06:12] LABS: Glucose,Whole Blood 129 mg/dL (75-99)
[2018-03-26] MEDS: INSULIN ASPART 100 UNIT/ML 1 ML 10 ML VIAL SQ SCH ×4 (06:20→21:01)
[2018-03-26] MEDS: methylPREDNISolone SOD SUCCI 125 MG/2 ML VIAL IV SCH ×4 (06:21→23:19)
[2018-03-26] MEDS: PANTOPRAZOLE 40 MG TABLET PO SCH (06:23)
[2018-03-26 06:39] LABS: Anisocytosis Slight; Basophils % (A) 0 %; Eosinophils % (A) 0 %; HCT 35.3 % (34.0-46.0); HGB 10.5 gm/dL (11.4-16.0); Hypochromasia Marked; Lymphocytes # (A) 0.9 k/uL (1.0-4.8); Lymphocytes % (A) 8 %; MCH 25.3 pg (25.0-35.0); MCHC 29.7 g/dL (31.0-37.0); MCV 85.1 fL (80.0-100.0); Mean Platelet Volume 7.2; Monocytes # (A) 0.6 k/uL (0-1.0); Monocytes % (A) 5 %; Neutrophils % (A) 86 %; Platelet Count 536 k/uL (150-450); RBC 4.15 m/uL (3.80-5.40); RDW 16.4 % (11.5-15.5); WBC 11.6 k/uL (3.8-10.6)
[2018-03-26 06:51] LABS: Anion Gap 3 mmol/L; Blood Urea Nitrogen 20 mg/dL (7-17); Calcium 9.3 mg/dL (8.4-10.2); Carbon Dioxide 33 mmol/L (22-30); Chloride 103 mmol/L (98-107); Glucose 125 mg/dL (74-99); Potassium 5.3 mmol/L (3.5-5.1); Sodium 139 mmol/L (137-145)
[2018-03-26] MEDS: IPRATROPIUM-ALBUTEROL 3 ML NEB INHALATION SCH ×4 (07:29→20:09)
[2018-03-26] MEDS: AZITHROMYCIN 500 MG TAB PO SCH (08:05)
[2018-03-26] MEDS: HEPARIN SODIUM,PORCINE 5,000 UNIT/ML 1 ML VIAL SQ SCH ×2 (08:06→21:01)
[2018-03-26] MEDS: FAMOTIDINE 20 MG/2 ML VIAL IV SCH (08:06)
[2018-03-26] MEDS: THEOPHYLLINE 24 HOUR 200 MG CAP.ER.24H PO SCH ×2 (08:06→21:01)
[2018-03-26] MEDS: PREGABALIN 75 MG CAP PO SCH ×2 (08:13→21:01)
[2018-03-26] MEDS: ALPRAZolam 0.25 MG TAB PO PRN ×2 (10:43→16:36)
[2018-03-26 10:47] LABS: ABG Base Excess 12.4 mmol/L; ABG HCO3 38 mmol/L (21-25); ABG Oxygen Saturation 83.4 % (94-97); ABG PCO2 69 mmHg (35-45); ABG PH 7.35 (7.35-7.45); ABG PO2 50 mmHg (83-108); ABG TCO2 40 mmol/L (19-24)
[2018-03-26] MEDS ORDERED: FUROSEMIDE 10 MG/ML 4 ML VIAL IV STA ×2 (10:56→11:10)
--- NOTE | 2018-03-26 11:44 | P.CNPUL ---
History of Present Illness Consult date: 03/25/18 Reason for consult: dyspnea, COPD History of present illness: 47-year-old here patient presented to the emergency department because of significant rest or distress. She is known to me from office in previous hospitalizations. She has advanced COPD and she is on oxygen at 6 L/m nasal cannula. She has steroid and oxygen-dependent COPD and she is currently on 20 mg of prednisone on outpatient basis. She is also on a combination of Symbicort , Incruse, theophylline, and albuterol solution [id number]. She has been able to quit smoking over the years. She has had multiple has position for COPD exacerbation. She has a SUKUMAR PS machine at home to support the breathing based on her recurrent hospitalizations and COPD exacerbations. Her white cell count is at 19.0. Her renal function is within normal limits. Is quite cachectic and weak. Troponins are negative. BNP is not elevated. Chest x-ray shows COPD with hyperinflation. Her last hospitalization for COPD exacerbation was back in 03/14/2018. The patient was found to be in significant respiratory distress. The patient was placed on BiPAP here in the hospital at a pressure of 14/5 cm of water with an FiO2 of 40%. She is having labored breathing and she is able to work on a BiPAP and she is synchronous and she doesn't have any significant leaks on the mask. No altered mentation. Review of Systems Constitutional: Reports fatigue, Reports lethargy, Reports weakness, Reports weight loss Eyes: denies blurred vision, denies bulging eye, denies decreased vision Ears: deny: decreased hearing, ear discharge, earache, tinnitus Ears, nose, mouth and throat: Denies headache, Denies sore throat Cardiovascular: Reports decreased exercise tolerance, Reports dyspnea on exertion, Reports rapid heart beat, Reports shortness of breath Respiratory: Reports cough, Reports dyspnea, Reports respiratory infections, Reports wheezing Gastrointestinal: Denies abdominal pain, Denies diarrhea, Denies nausea, Denies vomiting Genitourinary: Reports as per HPI Musculoskeletal: Denies myalgias Musculoskeletal: absent: ankle pain, ankle stiffness, ankle swelling Integumentary: Denies pruritus, Denies rash Neurological: Reports as per HPI Psychiatric: Reports as per HPI, Reports anxiety Endocrine: Reports fatigue Hematologic/Lymphatic: Reports as per HPI Allergic/Immunologic: Reports as per HPI Past Medical History Past Medical History: Cancer, Chest Pain / Angina, COPD, Eye Disorder, GERD/ Reflux, Hyperlipidemia, Myocardial Infarction (PA), Osteoarthritis (OA), Pneumonia, Respiratory Disorder Additional Past Medical History / Comment(s): past thoracic spine fractures T8- T9, possible oseoporosis. End stage COPD , chronic hypoxic and hypercapnic respiratory failure, home O2 at 5-6L/NC and bipap at HS, steroid dependent, bronchitis, 1997 pt states she was told her EKG showed a past PA, cervical cancer with hysterectomy, PUD, carpal tunnel bilaterally, herniated discs C5-C6 and L5-L6, cervical/lumbar spondylosis, RLS, eczema, cataract L eye, tinnitis bilaterally, sinus problems. Last Myocardial Infarction Date:: UNK History of Any Multi-Drug Resistant Organisms: None Reported, MRSA Date of last positivie culture/infection: 06/18/2015 MDRO Source:: SPUTUM Past Surgical History: Section, Cholecystectomy, Ear Surgery, Hysterectomy, Tubal Ligation Additional Past Surgical History / Comment(s): x 2, EGD, colonoscopy with benign polypectomy, R ear cyst with surgery.. Past Anesthesia/Blood Transfusion Reactions: No Reported Reaction Additional Past Anesthesia/Blood Transfusion Reaction / Comment(s): Pt has never recieved blood. Past Psychological History: Anxiety, Bipolar, Depression Smoking Status: Current some day smoker Past Alcohol Use History: None Reported Past Drug Use History: None Reported - Past Family History Father Family Medical History: No Reported History Additional Family Medical History / Comment(s): WAS AN ALCOHOLIC Mother Family Medical History: Cancer Additional Family Medical History / Comment(s): AT AGE 54-BOWEL CANCER Medications and Allergies Home Medications Medication Instructions Recorded Confirmed Type Albuterol Inhaler [Ventolin Hfa 2 puff INHALATION RT-QID PRN 01/03/14 03/25/18 History Inhaler] Omeprazole [PriLOSEC] 40 mg PO BID 01/03/14 03/25/18 History risperiDONE 3 mg PO HS 12/24/14 03/25/18 History traZODone HCL 300 mg PO HS 12/24/14 03/25/18 History Budesonide-Formot 160-4.5 Mcg 2 puff INHALATION RT-BID puff 07/13/16 03/25/18 Rx [Symbicort 160-4.5 Mcg Inhaler] Ipratropium-Albuterol Nebulize 3 ml INHALATION RT-QID neb 01/20/17 03/25/18 Rx [Duoneb 0.5 mg-3 mg/3 ml Soln] Theophylline 24 Hour [Akhil-24] 200 mg PO BID 07/06/17 03/25/18 History Fluticasone Nasal [place] [Flonase 2 spray EA NOSTRIL DAILY 12/21/17 03/25/18 History Nasal Stewart] Pregabalin [Lyrica] 150 mg PO BID 12/21/17 03/25/18 History predniSONE 20 mg PO DAILY 01/19/18 03/25/18 History Grant/D3/Mag11/Zinc/Cake Washer/Gianni/Bor 1 tab PO DAILY 03/13/18 03/25/18 History [Caltrate 600+D Plus Tablet] HYDROcodone/APAP 5-325MG [[place] 1 tab PO BID 03/13/18 03/25/18 History 5-325] Umeclidinium [place] [Incruse 1 puff INHALATION RT-DAILY 03/13/18 03/25/18 History Ellipta] Verapamil HCl [Verapamil ER] 180 mg PO DAILY 03/13/18 03/25/18 History amLODIPine [Norvasc] 10 mg PO DAILY 03/13/18 03/25/18 History Ipratropium [place] [Atrovent Hfa] 2 puff INHALATION RT-QID PRN 03/25/18 History Multivitamins, Thera [Multivitamin 1 tab PO DAILY@1200 03/25/18 03/25/18 History (formulary)] buPROPion HCL [Wellbutrin SR] 150 mg PO HS 03/25/18 03/25/18 History hydrALAZINE HCL [Apresoline] 25 mg PO TID PRN 03/25/18 03/25/18 History predniSONE See Taper PO DAILY 03/25/18 03/25/18 History Allergies Allergy/AdvReac Type Severity Reaction Status Date / Time aripiprazole [From Abilify] Allergy Rash/Hives Verified 03/25/18 11:13 cephalexin [From Keflex] Allergy Unknown Verified 03/25/18 11:13 honey Allergy Rash/Hives Verified 03/25/18 11:13 methadone [Methadone] Allergy Itching Verified 03/25/18 11:13 naproxen Allergy Rash/Hives Verified 03/25/18 11:13 sulfamethoxazole Allergy Rash/Hives Verified 03/25/18 11:13 [From Bactrim] tetracycline [Tetracycline] Allergy Rash/Hives Verified 03/25/18 11:13 trimethoprim [From Bactrim] Allergy Rash/Hives Verified 03/25/18 11:13 adhesive tape AdvReac Rash/Hives Verified 03/25/18 11:13 tramadol HCl [From Ultram] AdvReac SEIZURES Verified 03/25/18 11:13 tromethamine AdvReac Nausea & Verified 03/25/18 11:13 Vomiting Physical Exam Vitals: Vital Signs Temp Pulse Resp BP Pulse Ox 03/25/18 13:13 94 26 H 102/59 98 03/25/18 11:18 87 03/25/18 11:08 86 03/25/18 11:02 96 24 112/67 94 L 03/25/18 09:49 84 18 110/96 97 03/25/18 07:56 96 03/25/18 07:45 112 H 03/25/18 07:35 109 H 24 146/90 94 L 03/25/18 06:41 97.6 F 121 H 20 166/90 96 Intake and Output 03/24/18 03/25/18 03/25/18 22:59 06:59 14:59 Other: Weight 56.699 kg The patient's currently wearing a BiPAP device. She seemed to be in mild-to- moderate distress. She is quite tachypnea. She does have conversational dyspnea. HEENT examination is grossly unremarkable. Neck supple. Full range of motion. No adenopathy thyromegaly or neck vein distention. Cardiovascular examination reveals regular rhythm rate. S1-S2 normal. No S3 or S4. No discernible murmur noted. Heart sounds are distant. Lungs reveal diffuse bilateral rhonchi. Breath sounds are diminished. There is prolongation. This some expiratory wheezes and crackles. Abdomen soft bowel sounds are heard. No masses or tenderness. Extremities are intact. No cyanosis clubbing or edema. Skin is without rash or lesion. Neurologic examination is brief but nonfocal. Results - Laboratory Findings CBC and BMP: 03/26/18 05:49 03/26/18 05:49 PT/INR, D-dimer PT 9.3 sec (9.0-12.0) 03/25/18 07:05 INR 0.9 (<1.2) 03/25/18 07:05 Abnormal lab findings: Abnormal Labs 03/25/18 03/25/18 03/25/18 07:05 07:05 07:05 WBC 19.0 H RDW 16.3 H Plt Count 575 H Neutrophils # 15.4 H APTT Potassium 3.4 L Carbon Dioxide 35 H BUN 21 H Creatinine 0.43 L Glucose 183 H Total Creatine Kinase 25 L 03/25/18 07:05 WBC RDW Plt Count Neutrophils # APTT 20.4 L Potassium Carbon Dioxide BUN Creatinine Glucose Total Creatine Kinase - Diagnostic Findings Chest x-ray: image reviewed Assessment and Plan Plan: 1 COPD exacerbation complicated by tracheobronchitis and/or bronchopneumonia, chest x-rays shows no evidence of any acute pulmonary infiltration. The patient has advanced end-stage COPD chronic steroid and oxygen dependent. 2 Acute on chronic hypoxemic and hypercapnic respiratory failure 3 History of gastroesophageal reflux disease 4 Hyperlipidemia by history 5 coronary artery disease and previous Myocardial infarction 6 Previous history of pneumonia 7 Ongoing tobacco use with nicotine addiction 8 History of cervical cancer, status post hysterectomy 9 severe cachexia and debility seconds above-mentioned comorbidities Plan Continue bronchodilators. Continue IV Solu Medrol. Empiric antibiotic coverage with Zithromax. Continue BiPAP therapy. We'll continue to follow. The patient admitted to selective telemetry unit. Long-term prognosis poor based on her advanced lung disease.
--- NOTE | 2018-03-26 11:47 | P.PN ---
Subjective Progress Note Date: 03/26/18 47-year-old here patient presented to the emergency department because of significant rest or distress. She is known to me from office in previous hospitalizations. She has advanced COPD and she is on oxygen at 6 L/m nasal cannula. She has steroid and oxygen-dependent COPD and she is currently on 20 mg of prednisone on outpatient basis. She is also on a combination of Symbicort , Incruse, theophylline, and albuterol solution [id number]. She has been able to quit smoking over the years. She has had multiple has position for COPD exacerbation. She has a SUKUMAR PS machine at home to support the breathing based on her recurrent hospitalizations and COPD exacerbations. Her white cell count is at 19.0. Her renal function is within normal limits. Is quite cachectic and weak. Troponins are negative. BNP is not elevated. Chest x-ray shows COPD with hyperinflation. Her last hospitalization for COPD exacerbation was back in 03/14/2018. The patient was found to be in significant respiratory distress. The patient was placed on BiPAP here in the hospital at a pressure of 12/4 cm of water with an FiO2 of 40%. She is having labored breathing and she is able to work on a BiPAP and she is synchronous and she doesn't have any significant leaks on the mask. No altered mentation. On 03/26/2018 of seeing this patient for a follow-up. The patient is still BiPAP dependent. She is using the BiPAP on and off as the patient is still short of breath. She is still receiving bronchodilators in the form of DuoNeb neb last treatment [id number] and she is also on IV Solu Medrol. Her blood gases was done and showed a pH of 7.35 with a pCO2 of 69 and pO2 of 50. Based on that, the necessity BiPAP changes will be done to improve her oxygenation and ventilation. She has chronic hypercapnic respiratory failure. Objective - Vital Signs Vital signs: Vital Signs Temp 97 F L 03/26/18 08:00 Pulse 95 03/26/18 11:20 Resp 23 03/26/18 11:20 BP 134/87 03/26/18 11:20 Pulse Ox 98 03/26/18 11:20 Intake & Output 03/25/18 03/26/18 03/26/18 18:59 06:59 18:59 Intake Total 360 920 Output Total 800 800 Balance 360 120 -800 Weight 56.699 kg 53.4 kg Intake: IV 20 Invasive Line 1 20 Intake, IV Titration 900 Amount Sodium Chloride 0.9% 1, 900 000 ml @ 75 mls/hr IV . [id number] [facility] Rx#:[id number] Oral 360 Output: Urine 800 800 Other: Voiding Method Bedside Commode Bedside Commode - Exam The patient's currently wearing a BiPAP device. She seemed to be in mild-to- moderate distress. She is quite tachypnea. She does have conversational dyspnea. HEENT examination is grossly unremarkable. Neck supple. Full range of motion. No adenopathy thyromegaly or neck vein distention. Cardiovascular examination reveals regular rhythm rate. S1-S2 normal. No S3 or S4. No discernible murmur noted. Heart sounds are distant. Lungs reveal diffuse bilateral rhonchi. Breath sounds are diminished. There is prolongation. This some expiratory wheezes and crackles. Abdomen soft bowel sounds are heard. No masses or tenderness. Extremities are intact. No cyanosis clubbing or edema. Skin is without rash or lesion. Neurologic examination is brief but nonfocal. - Labs CBC & Chem 7: 03/26/18 05:49 03/26/18 05:49 Labs: Abnormal Lab Results - Last 24 Hours (Table) 03/25/18 03/25/18 03/26/18 Range/Units 17:00 20:40 05:49 WBC 11.6 H (3.8-10.6) k/uL Hgb 10.5 L (11.4-16.0) gm/dL MCHC 29.7 L (31.0-37.0) g/dL RDW 16.4 H (11.5-15.5) % Plt Count 536 H (150-450) k/uL Neutrophils # 10.0 H (1.3-7.7) k/uL Lymphocytes # 0.9 L (1.0-4.8) k/uL ABG pCO2 (35-45) mmHg ABG pO2 (83-108) mmHg ABG HCO3 (21-25) mmol/L ABG Total CO2 (19-24) mmol/L ABG O2 Saturation (94-97) % Potassium (3.5-5.1) mmol/L Carbon Dioxide (22-30) mmol/L BUN (7-17) mg/dL Creatinine (0.52-1.04) mg/dL Glucose (74-99) mg/dL POC Glucose (mg/dL) 159 H 147 H (75-99) mg/dL 03/26/18 03/26/18 03/26/18 Range/Units 05:49 06:10 10:45 WBC (3.8-10.6) k/uL Hgb (11.4-16.0) gm/dL MCHC (31.0-37.0) g/dL RDW (11.5-15.5) % Plt Count (150-450) k/uL Neutrophils # (1.3-7.7) k/uL Lymphocytes # (1.0-4.8) k/uL ABG pCO2 69 H (35-45) mmHg ABG pO2 50 L (83-108) mmHg ABG HCO3 38 H (21-25) mmol/L ABG Total CO2 40 H (19-24) mmol/L ABG O2 Saturation 83.4 L (94-97) % Potassium 5.3 H (3.5-5.1) mmol/L Carbon Dioxide 33 H (22-30) mmol/L BUN 20 H (7-17) mg/dL Creatinine 0.34 L (0.52-1.04) mg/dL Glucose 125 H (74-99) mg/dL POC Glucose (mg/dL) 129 H (75-99) mg/dL Assessment and Plan Plan: 1 COPD exacerbation complicated by tracheobronchitis and/or bronchopneumonia, chest x-rays shows no evidence of any acute pulmonary infiltration. The patient has advanced end-stage COPD chronic steroid and oxygen dependent. 2 Acute on chronic hypoxemic and hypercapnic respiratory failure 3 History of gastroesophageal reflux disease 4 Hyperlipidemia by history 5 coronary artery disease and previous Myocardial infarction 6 Previous history of pneumonia 7 Ongoing tobacco use with nicotine addiction 8 History of cervical cancer, status post hysterectomy 9 severe cachexia and debility seconds above-mentioned comorbidities Plan The patient seems to be a bit more short of breath compared to yesterday. Continue on DuoNeb neb last treatment [id number]. Add Pulmicort Respules in addition to perform his neb last treatment twice a day. Continue with IV Solu Medrol. Increase the BiPAP up to 16/6 cm of water. Increase FiO2 to maintain a saturation above 90% as the patient's blood gas shows a component of hypoxemia. Give the patient does of Lasix 40 mg IV push. IV fluids to KVO. May consider transferring the patient intensive care unit if her condition gets worse. We'll continue to follow.
[2018-03-26 11:54] LABS: Glucose,Whole Blood 164 mg/dL (75-99)
--- NOTE | 2018-03-26 11:58 | P.PN ---
Subjective This is a pleasant 47 years old female with past medical history of asthma, cancer, chest pain and coronary artery disease, COPD, GERD, hyperlipidemia, osteoarthritis, history of thoracic spine fractures T8/T9. Patient is steroid tipped pending and she is on home oxygen 5-6 L/m via NC and BiPAP at night for obstructive sleep apnea/COPD. she presents with progressively worsening dyspnea over several day duration, worse over the last 2 days, associated with worsening cough and yellowish greenish phlegm. Associated with central chest pain worse with coughing. she still smokes cigarettes , states they are few and did not specify how much, pt did not want nicotine patch when offered to her In the emergency room her WBC was 19 K, hemoglobin normal at 11.9, platelets high at 575. BMP was unremarkable with normal sodium at 140, potassium 3.4 and creatinine 0.43. On admission her oxygen saturation was running between 94-97% on oxygen therapy via chest x-ray shows COPD with improved areation on both lung bases. EKG shows sinus tachycardia at 123if he can't ST-T changes In the emergency room patient received a breathing treatment and IV fluids with Tylenol and she was started on antibiotic Zithromax and steroids 03/26/2018 Patient is still dyspneic and needs BiPAP, she still have cough with associated pain. Pulmonary consult is appreciated. His BiPAP per meters was adjusted by pulmonary team and decrease her FiO2 from 40 to 50%. Her oxygen saturating is well. Her glucose is running between 129 and 160. WBC came down from 19 K to 11 K. Her blood pressure is acceptable, restart vera Pammel. Keep holding Norvasc 10 mg. Potassium 5.3 monitor potassium Patient states she is being allowed, she is on IV fluids. We are going to order UA Objective - Vital Signs Vital signs: Vital Signs Temp 97 F L 03/26/18 08:00 Pulse 95 03/26/18 11:20 Resp 23 03/26/18 11:20 BP 134/87 03/26/18 11:20 Pulse Ox 98 03/26/18 11:20 Intake & Output 03/25/18 03/26/18 03/26/18 18:59 06:59 18:59 Intake Total 360 920 Output Total 800 800 Balance 360 120 -800 Weight 56.699 kg 53.4 kg Intake: IV 20 Invasive Line 1 20 Intake, IV Titration 900 Amount Sodium Chloride 0.9% 1, 900 000 ml @ 75 mls/hr IV . [id number] [facility] Rx#:[id number] Oral 360 Output: Urine 800 800 Other: Voiding Method Bedside Commode Bedside Commode - Exam GENERAL: The patient is alert and oriented x3, not in any acute distress. Well developed, well nourished. HEENT: Pupils are round and equally reacting to light. EOMI. No scleral icterus. No conjunctival pallor. Normocephalic, atraumatic. No pharyngeal erythema. No thyromegaly. CARDIOVASCULAR: S1 and S2 present. No murmurs, rubs, or gallops. -PULMONARY: Chest is clear to auscultation, crackles. Bilateral wheezing, patient is on BiPAP ABDOMEN: Soft, nontender, nondistended, normoactive bowel sounds. No palpable organomegaly. MUSCULOSKELETAL: No joint swelling or deformity. EXTREMITIES: No cyanosis, clubbing, or pedal edema. NEUROLOGICAL: Gross neurological examination did not reveal any focal deficits. SKIN: No rashes. - Labs CBC & Chem 7: 03/26/18 05:49 03/26/18 05:49 Labs: Abnormal Lab Results - Last 24 Hours (Table) 03/25/18 03/25/18 03/26/18 Range/Units 17:00 20:40 05:49 WBC 11.6 H (3.8-10.6) k/uL Hgb 10.5 L (11.4-16.0) gm/dL MCHC 29.7 L (31.0-37.0) g/dL RDW 16.4 H (11.5-15.5) % Plt Count 536 H (150-450) k/uL Neutrophils # 10.0 H (1.3-7.7) k/uL Lymphocytes # 0.9 L (1.0-4.8) k/uL ABG pCO2 (35-45) mmHg ABG pO2 (83-108) mmHg ABG HCO3 (21-25) mmol/L ABG Total CO2 (19-24) mmol/L ABG O2 Saturation (94-97) % Potassium (3.5-5.1) mmol/L Carbon Dioxide (22-30) mmol/L BUN (7-17) mg/dL Creatinine (0.52-1.04) mg/dL Glucose (74-99) mg/dL POC Glucose (mg/dL) 159 H 147 H (75-99) mg/dL 03/26/18 03/26/18 03/26/18 Range/Units 05:49 06:10 10:45 WBC (3.8-10.6) k/uL Hgb (11.4-16.0) gm/dL MCHC (31.0-37.0) g/dL RDW (11.5-15.5) % Plt Count (150-450) k/uL Neutrophils # (1.3-7.7) k/uL Lymphocytes # (1.0-4.8) k/uL ABG pCO2 69 H (35-45) mmHg ABG pO2 50 L (83-108) mmHg ABG HCO3 38 H (21-25) mmol/L ABG Total CO2 40 H (19-24) mmol/L ABG O2 Saturation 83.4 L (94-97) % Potassium 5.3 H (3.5-5.1) mmol/L Carbon Dioxide 33 H (22-30) mmol/L BUN 20 H (7-17) mg/dL Creatinine 0.34 L (0.52-1.04) mg/dL Glucose 125 H (74-99) mg/dL POC Glucose (mg/dL) 129 H (75-99) mg/dL Assessment and Plan Plan: -Acute COPD exacerbation. Continue with steroids, oxygen, breathing treatment. Pulmonary consult: appreciated, Patient is a steroids and oxygen dependent -History of obstructive sleep apnea, continue with BiPAP/CPAP -Possible tracheobronchitis, continue with antibiotics she is on Zithromax. -pleuretic chest pain , mostly related to cough , pain management -dehydration continue with IV fluids -smoker ,current, counseled but she does not want to quit, nicotine patch is offered but pt declined -Increase urine frequency, check UA is pending -Hypertension continue with Vera Pammel and other medication. Keep holding Norvasc 10 mg daily DVT prophylaxis on subcutaneous heparin GI prophylaxis on Pepcid PT/OT: Pending Progresses is guarded
[2018-03-26] MEDS: VERAPAMIL SR 180 MG TABLET.ER PO SCH (12:32)
[2018-03-26 17:30] LABS: Glucose,Whole Blood 126 mg/dL (75-99)
[2018-03-26 17:54] LABS: Appearance,Urine Clear (Clear); Bacteria,Urine Many /hpf; Bilirubin,Urine Negative (Negative); Blood,Urine Small (Negative); Color,Urine Light Yellow; Glucose,Urine (UA) Negative (Negative); Ketones,Urine Negative (Negative); Leukocyte Esterase,Urine Negative (Negative); Mucus,Urine Rare /hpf; Nitrite,Urine Positive (Negative); PH, Urine 6.5 (5.0-8.0); Protein,Urine Negative (Negative); RBC,Urine 2 /hpf (0-5); Specific Gravity,Urine 1.012 (1.001-1.035); Squamous Epithelial Cell,Urine 2 /hpf (0-4); Urobilinogen,Urine <2.0 mg/dL (<2.0); WBC,Urine 4 /hpf (0-5)
[2018-03-26] MEDS: BUDESONIDE 1 MG/2 ML NEBU INHALATION SCH (20:09)
[2018-03-26] MEDS: FORMOTEROL FUMARATE 20 MCG/2 ML NEBU INHALATION SCH (20:09)
[2018-03-26 21:00] LABS: Glucose,Whole Blood 172 mg/dL (75-99)
[2018-03-26] MEDS: buPROPion SR 150 MG TABLET.ER PO SCH (21:01)
[2018-03-26] MEDS: risperiDONE 1 MG TAB PO SCH (21:01)
[2018-03-26] MEDS: traZODone HCL 100 MG TAB PO SCH (21:01)
[2018-03-26] MEDS: guaiFENesin SYRUP 100MG/5ML 200 MG/10 ML CUP PO PRN (21:01)
[2018-03-27] MEDS: HYDROcodone/APAP 5-325MG 1 EACH TAB PO PRN ×2 (01:24→23:27)
[2018-03-27] MEDS: IPRATROPIUM-ALBUTEROL 3 ML NEB INHALATION PRN ×3 (01:53→22:49)
[2018-03-27] MEDS: MORPHINE ORAL SOLN 10 MG/5 ML CUP PO PRN ×5 (05:57→22:01)
[2018-03-27] MEDS: PANTOPRAZOLE 40 MG TABLET PO SCH (05:58)
[2018-03-27] MEDS: methylPREDNISolone SOD SUCCI 125 MG/2 ML VIAL IV SCH ×4 (05:58→23:11)
[2018-03-27 06:14] LABS: Glucose,Whole Blood 154 mg/dL (75-99)
[2018-03-27 06:19] LABS: Anisocytosis Slight; Basophils % (A) 0 %; Eosinophils % (A) 0 %; HCT 36.7 % (34.0-46.0); HGB 11.1 gm/dL (11.4-16.0); Hypochromasia Moderate; Lymphocytes # (A) 0.7 k/uL (1.0-4.8); Lymphocytes % (A) 8 %; MCH 25.4 pg (25.0-35.0); MCHC 30.3 g/dL (31.0-37.0); Mean Platelet Volume 7.1; Monocytes # (A) 0.5 k/uL (0-1.0); Monocytes % (A) 5 %; Neutrophils # (A) 8.2 k/uL (1.3-7.7); Neutrophils % (A) 86 %; Platelet Count 580 k/uL (150-450); RBC 4.37 m/uL (3.80-5.40); RDW 16.4 % (11.5-15.5); WBC 9.6 k/uL (3.8-10.6)
[2018-03-27 06:28] LABS: Anion Gap 6 mmol/L; Blood Urea Nitrogen 34 mg/dL (7-17); Calcium 9.9 mg/dL (8.4-10.2); Carbon Dioxide 35 mmol/L (22-30); Chloride 96 mmol/L (98-107); Glucose 135 mg/dL (74-99); Potassium 4.7 mmol/L (3.5-5.1); Sodium 137 mmol/L (137-145)
[2018-03-27] MEDS: INSULIN ASPART 100 UNIT/ML 1 ML 10 ML VIAL SQ SCH ×4 (06:31→21:04)
[2018-03-27] MEDS: BUDESONIDE 1 MG/2 ML NEBU INHALATION SCH ×2 (07:44→19:04)
[2018-03-27] MEDS: FORMOTEROL FUMARATE 20 MCG/2 ML NEBU INHALATION SCH ×2 (07:44→19:04)
[2018-03-27] MEDS: IPRATROPIUM-ALBUTEROL 3 ML NEB INHALATION SCH ×4 (07:44→19:04)
[2018-03-27] MEDS: AZITHROMYCIN 500 MG TAB PO SCH (07:49)
[2018-03-27] MEDS: HEPARIN SODIUM,PORCINE 5,000 UNIT/ML 1 ML VIAL SQ SCH ×2 (07:49→19:58)
[2018-03-27] MEDS: VERAPAMIL SR 180 MG TABLET.ER PO SCH (07:50)
[2018-03-27] MEDS: THEOPHYLLINE 24 HOUR 200 MG CAP.ER.24H PO SCH ×2 (07:50→19:58)
[2018-03-27] MEDS: PREGABALIN 75 MG CAP PO SCH ×2 (07:52→19:59)
[2018-03-27] MEDS: ALPRAZolam 0.25 MG TAB PO PRN ×3 (07:58→19:59)
--- NOTE | 2018-03-27 10:55 | P.PN ---
Subjective Patient resting in bed continues on BiPAP. Diminished lung sounds Objective - Vital Signs Vital signs: Vital Signs Temp 97.1 F L 03/27/18 07:47 Pulse 80 03/27/18 08:12 Resp 24 03/27/18 07:47 BP 138/84 03/27/18 07:47 Pulse Ox 99 03/27/18 07:47 Intake & Output 03/26/18 03/27/18 03/27/18 18:59 06:59 18:59 Intake Total 150 480 Output Total 1500 200 Balance -1500 150 280 Weight 52.5 kg Intake: Intake, IV Titration 240 Amount Sodium Chloride 0.9% 1, 240 000 ml @ 20 mls/hr IV . Q24H [facility] Rx#:[id number] Oral 150 240 Output: Urine 1500 200 Other: Voiding Method Bedside Commode Bedside Commode Bedside Commode # Voids 1 - Constitutional General appearance: Present: mild distress, thin - EENT Eyes: Present: PERRLA Ears: bilateral: normal - Respiratory Respiratory: bilateral: diminished - Cardiovascular Rhythm: regular - Gastrointestinal General gastrointestinal: Present: soft - Neurologic Neurologic: Present: CNII-XII intact - Musculoskeletal Musculoskeletal: Present: generalized weakness - Psychiatric Psychiatric: Present: A&O x's 3, appropriate affect, intact judgment & insight - Labs CBC & Chem 7: 03/27/18 05:36 03/27/18 05:36 Labs: Abnormal Lab Results - Last 24 Hours (Table) 03/26/18 03/26/18 03/26/18 Range/Units 10:45 11:35 16:48 Hgb (11.4-16.0) gm/dL MCHC (31.0-37.0) g/dL RDW (11.5-15.5) % Plt Count (150-450) k/uL Neutrophils # (1.3-7.7) k/uL Lymphocytes # (1.0-4.8) k/uL ABG pCO2 69 H (35-45) mmHg ABG pO2 50 L (83-108) mmHg ABG HCO3 38 H (21-25) mmol/L ABG Total CO2 40 H (19-24) mmol/L ABG O2 Saturation 83.4 L (94-97) % Chloride (98-107) mmol/L Carbon Dioxide (22-30) mmol/L BUN (7-17) mg/dL Creatinine (0.52-1.04) mg/dL Glucose (74-99) mg/dL POC Glucose (mg/dL) 164 H (75-99) mg/dL Urine Blood Small H (Negative) Urine Nitrite Positive H (Negative) Urine Bacteria Many H (None) /hpf Urine Mucus Rare H (None) /hpf 03/26/18 03/26/18 03/27/18 Range/Units 17:05 20:55 05:36 Hgb 11.1 L (11.4-16.0) gm/dL MCHC 30.3 L (31.0-37.0) g/dL RDW 16.4 H (11.5-15.5) % Plt Count 580 H (150-450) k/uL Neutrophils # 8.2 H (1.3-7.7) k/uL Lymphocytes # 0.7 L (1.0-4.8) k/uL ABG pCO2 (35-45) mmHg ABG pO2 (83-108) mmHg ABG HCO3 (21-25) mmol/L ABG Total CO2 (19-24) mmol/L ABG O2 Saturation (94-97) % Chloride (98-107) mmol/L Carbon Dioxide (22-30) mmol/L BUN (7-17) mg/dL Creatinine (0.52-1.04) mg/dL Glucose (74-99) mg/dL POC Glucose (mg/dL) 126 H 172 H (75-99) mg/dL Urine Blood (Negative) Urine Nitrite (Negative) Urine Bacteria (None) /hpf Urine Mucus (None) /hpf 03/27/18 03/27/18 Range/Units 05:36 06:11 Hgb (11.4-16.0) gm/dL MCHC (31.0-37.0) g/dL RDW (11.5-15.5) % Plt Count (150-450) k/uL Neutrophils # (1.3-7.7) k/uL Lymphocytes # (1.0-4.8) k/uL ABG pCO2 (35-45) mmHg ABG pO2 (83-108) mmHg ABG HCO3 (21-25) mmol/L ABG Total CO2 (19-24) mmol/L ABG O2 Saturation (94-97) % Chloride 96 L (98-107) mmol/L Carbon Dioxide 35 H (22-30) mmol/L BUN 34 H (7-17) mg/dL Creatinine 0.40 L (0.52-1.04) mg/dL Glucose 135 H (74-99) mg/dL POC Glucose (mg/dL) 154 H (75-99) mg/dL Urine Blood (Negative) Urine Nitrite (Negative) Urine Bacteria (None) /hpf Urine Mucus (None) /hpf Microbiology - Last 24 Hours (Table) 03/25/18 07:05 Blood Culture - Preliminary Blood No Growth after 24 hours - Imaging and Cardiology Chest x-ray: report reviewed Assessment and Plan Plan: Assessment Acute exacerbation of COPD chronic respiratory failure BiPAP at home O2 dependency Sleep apnea Tracheobronchitis pleuritic chest pain Dehydration Nicotine dependence History of coronary disease GERD Osteoarthritis narcotic dependency Malnutrition protein calorie deficiency secondary to severe COPD Plan Continues on Zithromax steroids bronchodilators Continues with a pulmonology consultation
[2018-03-27 11:24] LABS: Glucose,Whole Blood 143 mg/dL (75-99)
--- NOTE | 2018-03-27 14:21 | P.PN ---
Subjective Progress Note Date: 03/27/18 Principal diagnosis: Acute on chronic hypoxic and hypercapnic respiratory failure secondary to COPD exacerbation 47-year-old here patient presented to the emergency department because of significant rest or distress. She is known to me from office in previous hospitalizations. She has advanced COPD and she is on oxygen at 6 L/m nasal cannula. She has steroid and oxygen-dependent COPD and she is currently on 20 mg of prednisone on outpatient basis. She is also on a combination of Symbicort , Incruse, theophylline, and albuterol solution [id number]. She has been able to quit smoking over the years. She has had multiple has position for COPD exacerbation. She has a SUKUMAR PS machine at home to support the breathing based on her recurrent hospitalizations and COPD exacerbations. Her white cell count is at 19.0. Her renal function is within normal limits. Is quite cachectic and weak. Troponins are negative. BNP is not elevated. Chest x-ray shows COPD with hyperinflation. Her last hospitalization for COPD exacerbation was back in 03/14/2018. The patient was found to be in significant respiratory distress. The patient was placed on BiPAP here in the hospital at a pressure of 14/5 cm of water with an FiO2 of 40%. She is having labored breathing and she is able to work on a BiPAP and she is synchronous and she doesn't have any significant leaks on the mask. No altered mentation. Patient was reevaluated today on 03/27/2018, remains almost BiPAP dependent, continues to have shortness of breath, cough and wheezing. On physical examination, patient remains tight and bronchospastic. Chest x-ray showed improved aeration of both lungs. CBC and basic metabolic profile were reviewed. Objective - Vital Signs Vital signs: Vital Signs Temp 97.0 F L 03/27/18 11:44 Pulse 78 03/27/18 11:44 Resp 26 H 03/27/18 11:44 BP 137/86 03/27/18 11:44 Pulse Ox 99 03/27/18 11:44 Intake & Output 03/26/18 03/27/18 03/27/18 18:59 06:59 18:59 Intake Total 150 480 Output Total 1500 200 Balance -1500 150 280 Weight 52.5 kg Intake: Intake, IV Titration 240 Amount Sodium Chloride 0.9% 1, 240 000 ml @ 20 mls/hr IV . Q24H [facility] Rx#:[id number] Oral 150 240 Output: Urine 1500 200 Other: Voiding Method Bedside Commode Bedside Commode Bedside Commode # Voids 1 - Exam Physical exam revealed a 47-year-old white female on BiPAP, noted to be dyspneic at rest. . HEENT: PERRLA, EOMI, no icterus, neck is supple, no neck masses, no thyromegaly, no stridor. Cardiovascular examination reveals regular rhythm rate. S1-S2 normal. No S3 or S4. No discernible murmur noted. Heart sounds are distant. Lungs reveal diffuse bilateral rhonchi. Breath sounds are diminished. Prolonged expiratory phase. Abdomen soft, nontender, no megaly, no rebound, no guarding, positive bowel sounds. Extremities are intact. No clubbing, edema or cyanosis. Skin is without rash or lesion. Neurologic examination: Alert and oriented 3, no gross focal neurologic deficit. Psychiatric: Normal mood affect and mental status examination. - Labs CBC & Chem 7: 03/27/18 05:36 03/27/18 05:36 Labs: Abnormal Lab Results - Last 24 Hours (Table) 03/26/18 03/26/18 03/26/18 Range/Units 16:48 17:05 20:55 Hgb (11.4-16.0) gm/dL MCHC (31.0-37.0) g/dL RDW (11.5-15.5) % Plt Count (150-450) k/uL Neutrophils # (1.3-7.7) k/uL Lymphocytes # (1.0-4.8) k/uL Chloride (98-107) mmol/L Carbon Dioxide (22-30) mmol/L BUN (7-17) mg/dL Creatinine (0.52-1.04) mg/dL Glucose (74-99) mg/dL POC Glucose (mg/dL) 126 H 172 H (75-99) mg/dL Urine Blood Small H (Negative) Urine Nitrite Positive H (Negative) Urine Bacteria Many H (None) /hpf Urine Mucus Rare H (None) /hpf 03/27/18 03/27/18 03/27/18 Range/Units 05:36 05:36 06:11 Hgb 11.1 L (11.4-16.0) gm/dL MCHC 30.3 L (31.0-37.0) g/dL RDW 16.4 H (11.5-15.5) % Plt Count 580 H (150-450) k/uL Neutrophils # 8.2 H (1.3-7.7) k/uL Lymphocytes # 0.7 L (1.0-4.8) k/uL Chloride 96 L (98-107) mmol/L Carbon Dioxide 35 H (22-30) mmol/L BUN 34 H (7-17) mg/dL Creatinine 0.40 L (0.52-1.04) mg/dL Glucose 135 H (74-99) mg/dL POC Glucose (mg/dL) 154 H (75-99) mg/dL Urine Blood (Negative) Urine Nitrite (Negative) Urine Bacteria (None) /hpf Urine Mucus (None) /hpf 03/27/18 Range/Units 11:23 Hgb (11.4-16.0) gm/dL MCHC (31.0-37.0) g/dL RDW (11.5-15.5) % Plt Count (150-450) k/uL Neutrophils # (1.3-7.7) k/uL Lymphocytes # (1.0-4.8) k/uL Chloride (98-107) mmol/L Carbon Dioxide (22-30) mmol/L BUN (7-17) mg/dL Creatinine (0.52-1.04) mg/dL Glucose (74-99) mg/dL POC Glucose (mg/dL) 143 H (75-99) mg/dL Urine Blood (Negative) Urine Nitrite (Negative) Urine Bacteria (None) /hpf Urine Mucus (None) /hpf Microbiology - Last 24 Hours (Table) 03/25/18 07:05 Blood Culture - Preliminary Blood No Growth after 24 hours Assessment and Plan Assessment: 1 COPD exacerbation complicated by tracheobronchitis and/or bronchopneumonia, chest x-rays shows no evidence of any acute pulmonary infiltration. The patient has advanced end-stage COPD chronic steroid and oxygen dependent. 2 Acute on chronic hypoxemic and hypercapnic respiratory failure, secondary to COPD exacerbation 3 History of gastroesophageal reflux disease 4 Hyperlipidemia by history 5 coronary artery disease and previous Myocardial infarction 6 Previous history of pneumonia 7 Ongoing tobacco use with nicotine addiction, patient was counseled regarding smoking cessation. 8 History of cervical cancer, status post hysterectomy 9 severe cachexia and debility seconds above-mentioned comorbidities Recommendation: Continue BiPAP as needed, bronchodilators as listed and ordered by Dr. Molina, not quite ready for discharge planning, long-term prognosis remains very poor. Time with Patient: Less than 30
[2018-03-27 16:51] LABS: Glucose,Whole Blood 127 mg/dL (75-99)
[2018-03-27] MEDS: traZODone HCL 100 MG TAB PO SCH (19:58)
[2018-03-27] MEDS: buPROPion SR 150 MG TABLET.ER PO SCH (19:59)
[2018-03-27] MEDS: risperiDONE 1 MG TAB PO SCH (19:59)
[2018-03-27 20:40] LABS: Glucose,Whole Blood 171 mg/dL (75-99)
[2018-03-27] MEDS: guaiFENesin SYRUP 100MG/5ML 200 MG/10 ML CUP PO PRN (23:11)
[2018-03-28] MEDS: MORPHINE ORAL SOLN 10 MG/5 ML CUP PO PRN ×6 (02:01→22:55)
[2018-03-28] MEDS: ALPRAZolam 0.25 MG TAB PO PRN ×4 (02:03→21:24)
[2018-03-28] MEDS: IPRATROPIUM-ALBUTEROL 3 ML NEB INHALATION PRN (03:55)
[2018-03-28 06:08] LABS: Glucose,Whole Blood 158 mg/dL (75-99)
[2018-03-28] MEDS: methylPREDNISolone SOD SUCCI 125 MG/2 ML VIAL IV SCH ×4 (06:13→22:54)
[2018-03-28 06:29] LABS: Anisocytosis Slight; Basophils % (A) 0 %; Eosinophils % (A) 0 %; HCT 36.3 % (34.0-46.0); Hypochromasia Moderate; Lymphocytes # (A) 0.6 k/uL (1.0-4.8); Lymphocytes % (A) 3 %; MCH 25.4 pg (25.0-35.0); MCHC 30.2 g/dL (31.0-37.0); MCV 84.3 fL (80.0-100.0); Mean Platelet Volume 7.1; Monocytes # (A) 0.4 k/uL (0-1.0); Monocytes % (A) 2 %; Neutrophils # (A) 17.7 k/uL (1.3-7.7); Neutrophils % (A) 94 %; Platelet Count 541 k/uL (150-450); RBC 4.31 m/uL (3.80-5.40); RDW 16.2 % (11.5-15.5); WBC 18.8 k/uL (3.8-10.6)
[2018-03-28] MEDS: INSULIN ASPART 100 UNIT/ML 1 ML 10 ML VIAL SQ SCH ×4 (06:33→21:25)
[2018-03-28] MEDS: PANTOPRAZOLE 40 MG TABLET PO SCH (06:33)
[2018-03-28 06:38] LABS: Anion Gap 4 mmol/L; Blood Urea Nitrogen 37 mg/dL (7-17); Calcium 9.5 mg/dL (8.4-10.2); Carbon Dioxide 38 mmol/L (22-30); Chloride 96 mmol/L (98-107); Glucose 147 mg/dL (74-99); Potassium 4.6 mmol/L (3.5-5.1); Sodium 138 mmol/L (137-145)
[2018-03-28] MEDS: FORMOTEROL FUMARATE 20 MCG/2 ML NEBU INHALATION SCH ×2 (07:30→20:15)
[2018-03-28] MEDS: BUDESONIDE 1 MG/2 ML NEBU INHALATION SCH ×2 (07:30→20:15)
[2018-03-28] MEDS: IPRATROPIUM-ALBUTEROL 3 ML NEB INHALATION SCH ×4 (07:30→20:15)
[2018-03-28] MEDS: THEOPHYLLINE 24 HOUR 200 MG CAP.ER.24H PO SCH ×2 (07:56→21:19)
[2018-03-28] MEDS: AZITHROMYCIN 500 MG TAB PO SCH (07:56)
[2018-03-28] MEDS: PREGABALIN 75 MG CAP PO SCH ×2 (07:56→21:24)
[2018-03-28] MEDS: VERAPAMIL SR 180 MG TABLET.ER PO SCH (07:56)
[2018-03-28] MEDS: HEPARIN SODIUM,PORCINE 5,000 UNIT/ML 1 ML VIAL SQ SCH ×2 (07:57→21:19)
[2018-03-28] MEDS: HYDROcodone/APAP 5-325MG 1 EACH TAB PO PRN (07:57)
--- NOTE | 2018-03-28 10:26 | P.PN ---
Subjective Progress Note Date: 03/28/18 Principal diagnosis: Acute on chronic hypercapnic and hypoxic respiratory failure secondary to an acute exacerbation of chronic obstructive pulmonary disease 47-year-old here patient presented to the emergency department because of significant rest or distress. She is known to me from office in previous hospitalizations. She has advanced COPD and she is on oxygen at 6 L/m nasal cannula. She has steroid and oxygen-dependent COPD and she is currently on 20 mg of prednisone on outpatient basis. She is also on a combination of Symbicort , Incruse, theophylline, and albuterol solution [id number]. She has been able to quit smoking over the years. She has had multiple has position for COPD exacerbation. She has a SUKUMAR PS machine at home to support the breathing based on her recurrent hospitalizations and COPD exacerbations. Her white cell count is at 19.0. Her renal function is within normal limits. Is quite cachectic and weak. Troponins are negative. BNP is not elevated. Chest x-ray shows COPD with hyperinflation. Her last hospitalization for COPD exacerbation was back in 03/14/2018. The patient was found to be in significant respiratory distress. The patient was placed on BiPAP here in the hospital at a pressure of 14/5 cm of water with an FiO2 of 40%. She is having labored breathing and she is able to work on a BiPAP and she is synchronous and she doesn't have any significant leaks on the mask. No altered mentation. Patient was reevaluated today on 03/27/2018, remains almost BiPAP dependent, continues to have shortness of breath, cough and wheezing. On physical examination, patient remains tight and bronchospastic. Chest x-ray showed improved aeration of both lungs. CBC and basic metabolic profile were reviewed. Patient is seen today 03/28/2018 in follow-up on the selective care unit. She is awake and alert in no acute distress. She is currently maintaining good O2 saturations in the 90s on 6 L high flow nasal cannula. Throughout the evening she was wearing the BiPAP. She is doing a bit better today compared to yesterday. Still not quite back to her baseline. Still dyspneic with minimal conversation. Blood cultures reveal no growth. White count 18.8. Hemoglobin 11.0. Bicarb 38. Creatinine 0.58. She continues on DuoNeb inhalations, Perforomist and Pulmicort inhalations, IV Solu-Medrol, flank, empiric antibiotics in the form of azithromycin. Objective - Vital Signs Vital signs: Vital Signs Temp 96.7 F L 03/28/18 08:00 Pulse 92 03/28/18 07:57 Resp 20 03/28/18 08:00 BP 165/90 03/28/18 07:51 Pulse Ox 96 03/28/18 07:51 Intake & Output 03/27/18 03/28/18 03/28/18 18:59 06:59 18:59 Intake Total 1120 50 400 Output Total 400 Balance 720 50 400 Weight 53.8 kg Intake: IV 50 0.9 50 Intake, IV Titration 240 Amount Sodium Chloride 0.9% 1, 240 000 ml @ 20 mls/hr IV . Q24H [facility] OF [facility] Rx#:[id number] Oral 880 400 Output: Urine 400 Other: Voiding Method Bedside Commode Bedside Commode Bedside Commode # Voids 1 2 - Exam GENERAL EXAM: , Frail, cachectic. Perez face. Alert, active, comfortable in no apparent distress. HEAD: Normocephalic. EYES: Normal reaction of pupils, equal size. NOSE: Clear with pink turbinates. THROAT: No erythema or exudates. NECK: No masses, no JVD. CHEST: No chest wall deformity. LUNGS: Equal air entry with bilateral end expiratory wheeze. Diminished throughout. CVS: S1 and S2 normal with no audible murmur, regular rhythm. ABDOMEN: No hepatosplenomegaly, normal bowel sounds, no guarding or rigidity. SPINE: Kyphoscoliosis SKIN: No rashes CENTRAL NERVOUS SYSTEM: No focal deficits, tone is normal in all 4 extremities. EXTREMITIES: There is no peripheral edema. No clubbing, no cyanosis. Peripheral pulses are intact. - Labs CBC & Chem 7: 03/28/18 05:32 03/28/18 05:32 Labs: Abnormal Lab Results - Last 24 Hours (Table) 03/27/18 03/27/18 03/27/18 Range/Units 11:23 16:50 20:37 WBC (3.8-10.6) k/uL Hgb (11.4-16.0) gm/dL MCHC (31.0-37.0) g/dL RDW (11.5-15.5) % Plt Count (150-450) k/uL Neutrophils # (1.3-7.7) k/uL Lymphocytes # (1.0-4.8) k/uL Chloride (98-107) mmol/L Carbon Dioxide (22-30) mmol/L BUN (7-17) mg/dL Glucose (74-99) mg/dL POC Glucose (mg/dL) 143 H 127 H 171 H (75-99) mg/dL 03/28/18 03/28/18 03/28/18 Range/Units 05:32 05:32 06:06 WBC 18.8 H (3.8-10.6) k/uL Hgb 11.0 L (11.4-16.0) gm/dL MCHC 30.2 L (31.0-37.0) g/dL RDW 16.2 H (11.5-15.5) % Plt Count 541 H (150-450) k/uL Neutrophils # 17.7 H (1.3-7.7) k/uL Lymphocytes # 0.6 L (1.0-4.8) k/uL Chloride 96 L (98-107) mmol/L Carbon Dioxide 38 H (22-30) mmol/L BUN 37 H (7-17) mg/dL Glucose 147 H (74-99) mg/dL POC Glucose (mg/dL) 158 H (75-99) mg/dL Microbiology - Last 24 Hours (Table) 03/25/18 07:05 Blood Culture - Preliminary Blood No Growth after 48 hours Assessment and Plan Assessment: Impression: 1 COPD exacerbation complicated by tracheobronchitis and/or bronchopneumonia, chest x-rays shows no evidence of any acute pulmonary infiltration. The patient has advanced end-stage COPD chronic steroid and oxygen dependent. 2 Acute on chronic hypoxemic and hypercapnic respiratory failure, secondary to COPD exacerbation 3 History of gastroesophageal reflux disease 4 Hyperlipidemia by history 5 coronary artery disease and previous Myocardial infarction 6 Previous history of pneumonia 7 Ongoing tobacco use with nicotine addiction, patient was counseled regarding smoking cessation. 8 History of cervical cancer, status post hysterectomy 9 severe cachexia and debility seconds above-mentioned comorbidities Lang: The patient was seen and evaluated by Dr. Trujillo. She is improved today compared to yesterday but still not quite back to her baseline. We'll continue with her current treatment plan. We'll increase her activity as tolerated. Cautious use of narcotics. We'll continue to follow. I, the cosigning physician, performed a history & physical examination of the patient. Lungs sounds with bilateral end expiratory wheeze, diminished throughout. Maintaining good O2 saturations in the 90s on liters high flow nasal cannula, alternating with BiPAP. I discussed the assessment and plan of care with my nurse practitioner, Michaela Ribera. I attest to the above note as dictated by her.
--- NOTE | 2018-03-28 11:52 | P.PN ---
Subjective Patient states she feels some improvement continues on BiPAP. Noted to have x- ray wheeze today Objective - Vital Signs Vital signs: Vital Signs Temp 96.7 F L 03/28/18 08:00 Pulse 92 03/28/18 11:08 Resp 20 03/28/18 08:00 BP 165/90 03/28/18 07:51 Pulse Ox 96 03/28/18 07:51 Intake & Output 03/27/18 03/28/18 03/28/18 18:59 06:59 18:59 Intake Total 1120 50 460 Output Total 400 Balance 720 50 460 Weight 53.8 kg Intake: IV 50 60 0.9 50 60 Intake, IV Titration 240 Amount Sodium Chloride 0.9% 1, 240 000 ml @ 20 mls/hr IV . Q24H [facility] Rx#:[id number] Oral 880 400 Output: Urine 400 Other: Voiding Method Bedside Commode Bedside Commode Bedside Commode # Voids 1 2 2 - Constitutional General appearance: Present: mild distress, thin - EENT Eyes: Present: PERRLA Ears: bilateral: normal - Neck Neck: Present: normal ROM - Respiratory Respiratory: bilateral: diminished, wheezing - Cardiovascular Rhythm: regular - Gastrointestinal General gastrointestinal: Present: soft - Integumentary Integumentary: Present: normal - Neurologic Neurologic: Present: CNII-XII intact - Musculoskeletal Musculoskeletal: Present: generalized weakness - Psychiatric Psychiatric: Present: A&O x's 3, appropriate affect, intact judgment & insight - Labs CBC & Chem 7: 03/28/18 05:32 03/28/18 05:32 Labs: Abnormal Lab Results - Last 24 Hours (Table) 03/27/18 03/27/18 03/28/18 Range/Units 16:50 20:37 05:32 WBC 18.8 H (3.8-10.6) k/uL Hgb 11.0 L (11.4-16.0) gm/dL MCHC 30.2 L (31.0-37.0) g/dL RDW 16.2 H (11.5-15.5) % Plt Count 541 H (150-450) k/uL Neutrophils # 17.7 H (1.3-7.7) k/uL Lymphocytes # 0.6 L (1.0-4.8) k/uL Chloride (98-107) mmol/L Carbon Dioxide (22-30) mmol/L BUN (7-17) mg/dL Glucose (74-99) mg/dL POC Glucose (mg/dL) 127 H 171 H (75-99) mg/dL 03/28/18 03/28/18 Range/Units 05:32 06:06 WBC (3.8-10.6) k/uL Hgb (11.4-16.0) gm/dL MCHC (31.0-37.0) g/dL RDW (11.5-15.5) % Plt Count (150-450) k/uL Neutrophils # (1.3-7.7) k/uL Lymphocytes # (1.0-4.8) k/uL Chloride 96 L (98-107) mmol/L Carbon Dioxide 38 H (22-30) mmol/L BUN 37 H (7-17) mg/dL Glucose 147 H (74-99) mg/dL POC Glucose (mg/dL) 158 H (75-99) mg/dL Microbiology - Last 24 Hours (Table) 03/25/18 07:05 Blood Culture - Preliminary Blood No Growth after 48 hours Assessment and Plan Assessment: Assessment Acute on chronic hypercapnic/hypoxic respiratory failure Acute exacerbation of COPD home oxygen BiPAP History of sleep apnea on BiPAP Tracheobronchitis pleuritic chest pain Dehydration Continues with nicotine use History of coronary disease history of GERD Malnutrition protein calorie deficiency secondary to severe COPD Osteoarthritis with narcotic dependence Plan Continue consultation with pulmonology
[2018-03-28 11:54] LABS: Glucose,Whole Blood 158 mg/dL (75-99)
[2018-03-28 16:45] LABS: Glucose,Whole Blood 183 mg/dL (75-99)
[2018-03-28 20:35] LABS: Glucose,Whole Blood 180 mg/dL (75-99)
[2018-03-28] MEDS: risperiDONE 1 MG TAB PO SCH (21:18)
[2018-03-28] MEDS: buPROPion SR 150 MG TABLET.ER PO SCH (21:18)
[2018-03-28] MEDS: traZODone HCL 100 MG TAB PO SCH (21:19)
[2018-03-29] MEDS: IPRATROPIUM-ALBUTEROL 3 ML NEB INHALATION PRN ×3 (00:22→23:40)
[2018-03-29] MEDS: ALPRAZolam 0.25 MG TAB PO PRN ×2 (05:16→12:06)
[2018-03-29] MEDS: MORPHINE ORAL SOLN 10 MG/5 ML CUP PO PRN ×4 (05:16→20:16)
[2018-03-29 05:48] LABS: Glucose,Whole Blood 165 mg/dL (75-99)
[2018-03-29] MEDS: methylPREDNISolone SOD SUCCI 125 MG/2 ML VIAL IV SCH ×4 (06:25→23:15)
[2018-03-29] MEDS: INSULIN ASPART 100 UNIT/ML 1 ML 10 ML VIAL SQ SCH ×4 (06:26→21:33)
[2018-03-29] MEDS: PANTOPRAZOLE 40 MG TABLET PO SCH (06:28)
[2018-03-29] MEDS: FORMOTEROL FUMARATE 20 MCG/2 ML NEBU INHALATION SCH ×2 (07:58→20:21)
[2018-03-29] MEDS: BUDESONIDE 1 MG/2 ML NEBU INHALATION SCH ×2 (07:58→20:12)
[2018-03-29] MEDS: IPRATROPIUM-ALBUTEROL 3 ML NEB INHALATION SCH ×4 (07:58→20:12)
[2018-03-29] MEDS: PREGABALIN 75 MG CAP PO SCH ×2 (08:45→20:14)
[2018-03-29] MEDS: HYDROcodone/APAP 5-325MG 1 EACH TAB PO PRN (08:45)
[2018-03-29] MEDS: THEOPHYLLINE 24 HOUR 200 MG CAP.ER.24H PO SCH ×2 (08:45→20:15)
[2018-03-29] MEDS: AZITHROMYCIN 500 MG TAB PO SCH (08:46)
[2018-03-29] MEDS: HEPARIN SODIUM,PORCINE 5,000 UNIT/ML 1 ML VIAL SQ SCH ×2 (08:46→20:15)
[2018-03-29] MEDS: VERAPAMIL SR 180 MG TABLET.ER PO SCH (08:46)
--- NOTE | 2018-03-29 11:09 | P.PN ---
Subjective Patient sitting upright in bed states she feels short of breath this morning continues on BiPAP Objective - Vital Signs Vital signs: Vital Signs Temp 97.2 F L 03/29/18 08:43 Pulse 100 03/29/18 08:43 Resp 20 03/29/18 08:43 BP 158/86 03/29/18 08:43 Pulse Ox 91 L 03/29/18 08:43 Intake & Output 03/28/18 03/29/18 03/29/18 18:59 06:59 18:59 Intake Total 940 240 Output Total 1600 Balance 940 -1600 240 Weight 53.4 kg Intake: IV 60 0.9 60 Oral 880 240 Output: Urine 1600 Other: Voiding Method Bedside Commode Bedside Commode Bedside Commode # Voids 1 400 - Constitutional General appearance: Present: thin - EENT Eyes: Present: PERRLA Ears: bilateral: normal - Respiratory Respiratory: bilateral: diminished - Cardiovascular Rhythm: regular - Gastrointestinal General gastrointestinal: Present: soft - Integumentary Integumentary: Present: normal - Neurologic Neurologic: Present: CNII-XII intact - Musculoskeletal Musculoskeletal: Present: generalized weakness - Psychiatric Psychiatric: Present: A&O x's 3, appropriate affect, intact judgment & insight - Labs CBC & Chem 7: 03/28/18 05:32 03/28/18 05:32 Labs: Abnormal Lab Results - Last 24 Hours (Table) 03/28/18 03/28/18 03/28/18 Range/Units 11:50 16:43 20:33 POC Glucose (mg/dL) 158 H 183 H 180 H (75-99) mg/dL 03/29/18 Range/Units 05:45 POC Glucose (mg/dL) 165 H (75-99) mg/dL Microbiology - Last 24 Hours (Table) 03/25/18 07:05 Blood Culture - Preliminary Blood No Growth after 72 hours Assessment and Plan Plan: Assessment Acute on chronic hypercapnic hypoxic respiratory failure Acute on chronic COPD exacerbation end-stage History of sleep apnea on BiPAP at home Tracheobronchitis Pleuritic chest pain Nicotine addiction History of coronary artery disease GERD Osteoarthritis with narcotic dependence Malnutrition secondary to severe COPD protein calorie deficiency Plan Continue with Zithromax steroids bronchodilators BiPAP as needed Continue with pulmonology consultation
--- NOTE | 2018-03-29 11:18 | P.PN ---
Subjective Progress Note Date: 03/29/18 Principal diagnosis: Acute on chronic hypercapnic and hypoxic respiratory failure secondary to an acute exacerbation of chronic obstructive pulmonary disease 47-year-old here patient presented to the emergency department because of significant rest or distress. She is known to me from office in previous hospitalizations. She has advanced COPD and she is on oxygen at 6 L/m nasal cannula. She has steroid and oxygen-dependent COPD and she is currently on 20 mg of prednisone on outpatient basis. She is also on a combination of Symbicort , Incruse, theophylline, and albuterol solution [id number]. She has been able to quit smoking over the years. She has had multiple has position for COPD exacerbation. She has a SUKUMAR PS machine at home to support the breathing based on her recurrent hospitalizations and COPD exacerbations. Her white cell count is at 19.0. Her renal function is within normal limits. Is quite cachectic and weak. Troponins are negative. BNP is not elevated. Chest x-ray shows COPD with hyperinflation. Her last hospitalization for COPD exacerbation was back in 03/14/2018. The patient was found to be in significant respiratory distress. The patient was placed on BiPAP here in the hospital at a pressure of 14/5 cm of water with an FiO2 of 40%. She is having labored breathing and she is able to work on a BiPAP and she is synchronous and she doesn't have any significant leaks on the mask. No altered mentation. Patient was reevaluated today on 03/27/2018, remains almost BiPAP dependent, continues to have shortness of breath, cough and wheezing. On physical examination, patient remains tight and bronchospastic. Chest x-ray showed improved aeration of both lungs. CBC and basic metabolic profile were reviewed. Patient is seen today 03/28/2018 in follow-up on the selective care unit. She is awake and alert in no acute distress. She is currently maintaining good O2 saturations in the 90s on 6 L high flow nasal cannula. Throughout the evening she was wearing the BiPAP. She is doing a bit better today compared to yesterday. Still not quite back to her baseline. Still dyspneic with minimal conversation. Blood cultures reveal no growth. White count 18.8. Hemoglobin 11.0. Bicarb 38. Creatinine 0.58. She continues on DuoNeb inhalations, Perforomist and Pulmicort inhalations, IV Solu-Medrol, flank, empiric antibiotics in the form of azithromycin. The patient is seen today 03/29/2018 in follow-up on the selective care unit. She is awake and alert in no acute distress. She is currently on the BiPAP. She states she is breathing easier today as compared to yesterday. Still not quite back to her baseline. She still somewhat bronchospastic and wheezy. One off BiPAP she is maintaining O2 saturations in the 90s on 6 L high flow nasal cannula. She's currently afebrile. Hemodynamically stable. Blood cultures reveal no growth. Objective - Vital Signs Vital signs: Vital Signs Temp 97.2 F L 03/29/18 08:43 Pulse 100 03/29/18 08:43 Resp 20 03/29/18 08:43 BP 158/86 03/29/18 08:43 Pulse Ox 91 L 03/29/18 08:43 Intake & Output 03/28/18 03/29/18 03/29/18 18:59 06:59 18:59 Intake Total 940 240 Output Total 1600 Balance 940 -1600 240 Weight 53.4 kg Intake: IV 60 0.9 60 Oral 880 240 Output: Urine 1600 Other: Voiding Method Bedside Commode Bedside Commode Bedside Commode # Voids 1 400 - Exam GENERAL EXAM: , Frail, cachectic. Perez face. Alert, active, comfortable in no apparent distress. HEAD: Normocephalic. EYES: Normal reaction of pupils, equal size. NOSE: Clear with pink turbinates. THROAT: No erythema or exudates. NECK: No masses, no JVD. CHEST: No chest wall deformity. LUNGS: Equal air entry with bilateral end expiratory wheeze. Diminished throughout. CVS: S1 and S2 normal with no audible murmur, regular rhythm. ABDOMEN: No hepatosplenomegaly, normal bowel sounds, no guarding or rigidity. SPINE: Kyphoscoliosis SKIN: No rashes CENTRAL NERVOUS SYSTEM: No focal deficits, tone is normal in all 4 extremities. EXTREMITIES: There is no peripheral edema. No clubbing, no cyanosis. Peripheral pulses are intact. - Labs CBC & Chem 7: 03/28/18 05:32 03/28/18 05:32 Labs: Abnormal Lab Results - Last 24 Hours (Table) 03/28/18 03/28/18 03/28/18 Range/Units 11:50 16:43 20:33 POC Glucose (mg/dL) 158 H 183 H 180 H (75-99) mg/dL 03/29/18 Range/Units 05:45 POC Glucose (mg/dL) 165 H (75-99) mg/dL Microbiology - Last 24 Hours (Table) 03/25/18 07:05 Blood Culture - Preliminary Blood No Growth after 72 hours Assessment and Plan Assessment: Impression: 1 COPD exacerbation complicated by tracheobronchitis and/or bronchopneumonia, chest x-rays shows no evidence of any acute pulmonary infiltration. The patient has advanced end-stage COPD chronic steroid and oxygen dependent. 2 Acute on chronic hypoxemic and hypercapnic respiratory failure, secondary to COPD exacerbation 3 History of gastroesophageal reflux disease 4 Hyperlipidemia by history 5 coronary artery disease and previous Myocardial infarction 6 Previous history of pneumonia 7 Ongoing tobacco use with nicotine addiction, patient was counseled regarding smoking cessation. 8 History of cervical cancer, status post hysterectomy 9 severe cachexia and debility seconds above-mentioned comorbidities Lang: The patient was seen and evaluated by Dr. Trujillo. Still not quite back to her baseline. We'll continue with her current treatment plan. We'll increase her activity as tolerated. Cautious use of narcotics. We'll continue to follow. I, the cosigning physician, performed a history & physical examination of the patient. Lungs sounds with bilateral end expiratory wheeze, diminished throughout. Maintaining good O2 saturations in the 90s on 6 liters high flow nasal cannula, alternating with BiPAP. I discussed the assessment and plan of care with my nurse practitioner, Michaela Ribera. I attest to the above note as dictated by her.
[2018-03-29 11:37] LABS: Glucose,Whole Blood 143 mg/dL (75-99)
[2018-03-29] MEDS: guaiFENesin SYRUP 100MG/5ML 200 MG/10 ML CUP PO PRN (16:17)
[2018-03-29 16:46] LABS: Glucose,Whole Blood 181 mg/dL (75-99)
[2018-03-29] MEDS: buPROPion SR 150 MG TABLET.ER PO SCH (20:13)
[2018-03-29] MEDS: traZODone HCL 100 MG TAB PO SCH (20:15)
[2018-03-29] MEDS: risperiDONE 1 MG TAB PO SCH (20:15)
[2018-03-29 20:53] LABS: Glucose,Whole Blood 143 mg/dL (75-99)
[2018-03-30] MEDS: MORPHINE ORAL SOLN 10 MG/5 ML CUP PO PRN ×5 (02:20→23:10)
[2018-03-30] MEDS: IPRATROPIUM-ALBUTEROL 3 ML NEB INHALATION PRN (03:27)
[2018-03-30 06:00] LABS: Glucose,Whole Blood 235 mg/dL (75-99)
[2018-03-30] MEDS: methylPREDNISolone SOD SUCCI 125 MG/2 ML VIAL IV SCH ×3 (06:06→16:50)
[2018-03-30] MEDS: INSULIN ASPART 100 UNIT/ML 1 ML 10 ML VIAL SQ SCH ×4 (06:13→21:13)
[2018-03-30] MEDS: ALPRAZolam 0.25 MG TAB PO PRN ×3 (06:14→23:10)
[2018-03-30] MEDS: PANTOPRAZOLE 40 MG TABLET PO SCH (06:14)
[2018-03-30] MEDS: IPRATROPIUM-ALBUTEROL 3 ML NEB INHALATION SCH ×4 (07:48→20:26)
[2018-03-30] MEDS: FORMOTEROL FUMARATE 20 MCG/2 ML NEBU INHALATION SCH ×2 (07:48→20:25)
[2018-03-30] MEDS: BUDESONIDE 1 MG/2 ML NEBU INHALATION SCH ×2 (07:48→20:25)
[2018-03-30] MEDS: THEOPHYLLINE 24 HOUR 200 MG CAP.ER.24H PO SCH ×2 (08:22→20:36)
[2018-03-30] MEDS: HEPARIN SODIUM,PORCINE 5,000 UNIT/ML 1 ML VIAL SQ SCH ×2 (08:22→20:36)
[2018-03-30] MEDS: AZITHROMYCIN 500 MG TAB PO SCH (08:23)
[2018-03-30] MEDS: VERAPAMIL SR 180 MG TABLET.ER PO SCH (08:23)
[2018-03-30] MEDS: PREGABALIN 75 MG CAP PO SCH ×2 (08:29→21:17)
[2018-03-30 11:56] LABS: Glucose,Whole Blood 105 mg/dL (75-99)
--- NOTE | 2018-03-30 12:49 | P.PN ---
<Michaela Ribera - Last Filed: 03/30/18 12:41> Subjective Progress Note Date: 03/30/18 Principal diagnosis: Acute on chronic hypercapnic and hypoxic respiratory failure secondary to an acute exacerbation of chronic obstructive pulmonary disease 47-year-old here patient presented to the emergency department because of significant rest or distress. She is known to me from office in previous hospitalizations. She has advanced COPD and she is on oxygen at 6 L/m nasal cannula. She has steroid and oxygen-dependent COPD and she is currently on 20 mg of prednisone on outpatient basis. She is also on a combination of Symbicort , Incruse, theophylline, and albuterol solution [id number]. She has been able to quit smoking over the years. She has had multiple has position for COPD exacerbation. She has a SUKUMAR PS machine at home to support the breathing based on her recurrent hospitalizations and COPD exacerbations. Her white cell count is at 19.0. Her renal function is within normal limits. Is quite cachectic and weak. Troponins are negative. BNP is not elevated. Chest x-ray shows COPD with hyperinflation. Her last hospitalization for COPD exacerbation was back in 03/14/2018. The patient was found to be in significant respiratory distress. The patient was placed on BiPAP here in the hospital at a pressure of 14/5 cm of water with an FiO2 of 40%. She is having labored breathing and she is able to work on a BiPAP and she is synchronous and she doesn't have any significant leaks on the mask. No altered mentation. Patient was reevaluated today on 03/27/2018, remains almost BiPAP dependent, continues to have shortness of breath, cough and wheezing. On physical examination, patient remains tight and bronchospastic. Chest x-ray showed improved aeration of both lungs. CBC and basic metabolic profile were reviewed. Patient is seen today 03/28/2018 in follow-up on the selective care unit. She is awake and alert in no acute distress. She is currently maintaining good O2 saturations in the 90s on 6 L high flow nasal cannula. Throughout the evening she was wearing the BiPAP. She is doing a bit better today compared to yesterday. Still not quite back to her baseline. Still dyspneic with minimal conversation. Blood cultures reveal no growth. White count 18.8. Hemoglobin 11.0. Bicarb 38. Creatinine 0.58. She continues on DuoNeb inhalations, Perforomist and Pulmicort inhalations, IV Solu-Medrol, flank, empiric antibiotics in the form of azithromycin. The patient is seen today 03/29/2018 in follow-up on the selective care unit. She is awake and alert in no acute distress. She is currently on the BiPAP. She states she is breathing easier today as compared to yesterday. Still not quite back to her baseline. She still somewhat bronchospastic and wheezy. One off BiPAP she is maintaining O2 saturations in the 90s on 6 L high flow nasal cannula. She's currently afebrile. Hemodynamically stable. Blood cultures reveal no growth. The patient is seen again today March 30, 2018 in follow-up on the selective care unit. She is currently comfortable and on her BiPAP. She states she's only been off approximately 15 minutes at a time. When she is off she is maintaining good O2 saturations in the 90s on 5 L/m per nasal cannula. She's currently afebrile. Slightly tachycardic. Slightly tachypneic. She does state she is breathing easier today as compared to yesterday but again not quite back to her baseline. She is continued on the maximum of all of her pulmonary medications. Objective - Vital Signs Vital signs: Vital Signs Temp 96.8 F L 03/30/18 08:00 Pulse 104 H 03/30/18 11:33 Resp 20 03/30/18 08:00 BP 138/94 03/30/18 08:00 Pulse Ox 94 L 03/30/18 08:00 Intake & Output 03/29/18 03/30/18 03/30/18 18:59 06:59 18:59 Intake Total 500 360 Output Total 400 Balance 500 -400 360 Weight 53.1 kg Intake: Oral 500 360 Output: Urine 400 Other: Voiding Method Bedside Commode Bedside Commode # Voids 4 - Exam GENERAL EXAM: , Frail, cachectic. Perez face. Alert, active, comfortable in no apparent distress. HEAD: Normocephalic. EYES: Normal reaction of pupils, equal size. NOSE: Clear with pink turbinates. THROAT: No erythema or exudates. NECK: No masses, no JVD. CHEST: No chest wall deformity. LUNGS: Equal air entry with bilateral end expiratory wheeze. Diminished throughout. CVS: S1 and S2 normal with no audible murmur, regular rhythm. ABDOMEN: No hepatosplenomegaly, normal bowel sounds, no guarding or rigidity. SPINE: Kyphoscoliosis SKIN: No rashes CENTRAL NERVOUS SYSTEM: No focal deficits, tone is normal in all 4 extremities. EXTREMITIES: There is no peripheral edema. No clubbing, no cyanosis. Peripheral pulses are intact. - Labs CBC & Chem 7: 03/28/18 05:32 03/28/18 05:32 Labs: Abnormal Lab Results - Last 24 Hours (Table) 03/29/18 03/29/18 03/30/18 Range/Units 16:20 20:52 05:59 POC Glucose (mg/dL) 181 H 143 H 235 H (75-99) mg/dL 03/30/18 Range/Units 11:54 POC Glucose (mg/dL) 105 H (75-99) mg/dL Microbiology - Last 24 Hours (Table) 03/25/18 07:05 Blood Culture - Preliminary Blood No Growth after 96 hours Assessment and Plan Assessment: Impression: 1 COPD exacerbation complicated by tracheobronchitis and/or bronchopneumonia, chest x-rays shows no evidence of any acute pulmonary infiltration. The patient has advanced end-stage COPD chronic steroid and oxygen dependent. 2 Acute on chronic hypoxemic and hypercapnic respiratory failure, secondary to COPD exacerbation, on an average volume assured pressure support (AVAPS) she in the out patient setting 3 History of gastroesophageal reflux disease 4 Hyperlipidemia by history 5 coronary artery disease and previous Myocardial infarction 6 Previous history of pneumonia 7 Ongoing tobacco use with nicotine addiction, patient was counseled regarding smoking cessation. 8 History of cervical cancer, status post hysterectomy 9 severe cachexia and debility seconds above-mentioned comorbidities Lang: The patient was seen and evaluated by Dr. Molina. Still not quite back to her baseline. We'll continue with her current treatment plan. We'll increase her activity as tolerated. We'll continue to follow. Probable discharge in the a.m. I, the cosigning physician, performed a history & physical examination of the patient. Lungs sounds with bilateral end expiratory wheeze, diminished throughout. Maintaining good O2 saturations in the 90s on 5 liters high flow nasal cannula, alternating with BiPAP. I discussed the assessment and plan of care with my nurse practitioner, Michaela Ribera. I attest to the above note as dictated by her. <Kevon Molina - Last Filed: 03/30/18 13:57> Objective - Vital Signs Vital signs: Vital Signs Temp 96.8 F L 03/30/18 08:00 Pulse 104 H 03/30/18 11:33 Resp 20 03/30/18 08:00 BP 138/94 03/30/18 08:00 Pulse Ox 94 L 03/30/18 08:00 Intake & Output 03/29/18 03/30/18 03/30/18 18:59 06:59 18:59 Intake Total 500 360 Output Total 400 Balance 500 -400 360 Weight 53.1 kg Intake: Oral 500 360 Output: Urine 400 Other: Voiding Method Bedside Commode Bedside Commode # Voids 4 - Labs CBC & Chem 7: 03/28/18 05:32 03/28/18 05:32 Labs: Abnormal Lab Results - Last 24 Hours (Table) 03/29/18 03/29/18 03/30/18 Range/Units 16:20 20:52 05:59 POC Glucose (mg/dL) 181 H 143 H 235 H (75-99) mg/dL 03/30/18 Range/Units 11:54 POC Glucose (mg/dL) 105 H (75-99) mg/dL Microbiology - Last 24 Hours (Table) 03/25/18 07:05 Blood Culture - Preliminary Blood No Growth after 96 hours Assessment and Plan Assessment: On today's evaluation, I'm doing still this joint evaluation with the [employer], and I see that Ameena is feeling better and is less short of breath compared to yesterday. We'll try to prolong the time when she spends on nasal cannula rather than her BiPAP machine. She has become very much BiPAP dependent. She has become also steroid dependent. She has advanced end-stage COPD. We'll continue to follow and we will gradually wean down the steroids and the BiPAP treatments. We'll continue to follow
--- NOTE | 2018-03-30 16:02 | P.PN ---
Subjective Progress Note Date: 03/30/18 Progress note being dictated for Dr. Kaur Interval history: This a 47-year-old female admitted with acute COPD exacerbation, tracheobronchitis, respiratory failure and multiple other medical issues. Maintained on nebulized bronchodilators, Zithromax, systemic steroids. Breathing slowly improving, currently off BiPAP-has worn most of the morning, maintaining O2 sats in the low 90s on 6 L nasal cannula. Denies chest pain, palpitations. Afebrile. Objective - Vital Signs Vital signs: Vital Signs Temp 96.8 F L 03/30/18 08:00 Pulse 120 H 03/30/18 12:00 Resp 20 03/30/18 12:00 BP 156/95 03/30/18 12:00 Pulse Ox 90 L 03/30/18 12:00 Intake & Output 03/29/18 03/30/18 03/30/18 18:59 06:59 18:59 Intake Total 500 360 Output Total 400 Balance 500 -400 360 Weight 53.1 kg Intake: Oral 500 360 Output: Urine 400 Other: Voiding Method Bedside Commode Bedside Commode # Voids 4 - Exam PHYSICAL EXAM: VITAL SIGNS: As above GENERAL: Sitting up in bed, no acute distress, cachectic HEENT: Conjunctivae normal. eyes normal. Oral mucosa moist. NECK: No JVD. No thyroid enlargement. No LNs CARDIOVASCULAR: S1, S2 muffled. No murmur RESPIRATION: Breath sounds diminished in the bases. No rhonchi or crackles. Expiratory wheezing ABDOMEN: Soft, nontender . No guarding. no masses palpable. .Bowel sounds heard. LEGS: No edema. no swelling PSYCHIATRY: Alert and oriented -3, mood and affect normal. NERVOUS SYSTEM: Cranial N 2-12 grossly normal. Moves all 4 limbs. Diffuse weakness No focal deficits. - Labs CBC & Chem 7: 03/28/18 05:32 03/28/18 05:32 Labs: Abnormal Lab Results - Last 24 Hours (Table) 03/29/18 03/29/18 03/30/18 Range/Units 16:20 20:52 05:59 POC Glucose (mg/dL) 181 H 143 H 235 H (75-99) mg/dL 03/30/18 Range/Units 11:54 POC Glucose (mg/dL) 105 H (75-99) mg/dL Microbiology - Last 24 Hours (Table) 03/25/18 07:05 Blood Culture - Preliminary Blood No Growth after 96 hours Assessment and Plan Assessment: 1. Acute COPD exacerbation with acute purulent tracheobronchitis, possible bronchopneumonia. 2. Acute on chronic hypercapnic, hypoxic respiratory failure secondary to end- stage COPD. 3. Ongoing nicotine dependence 4. CAD, history of [place] 5. Medical debility Plan: Continue on current medication regime ,monitoring and symptomatic treatment. Maintain nebulized bronchodilators, steroids, antibiotics. Weaning of steroids and BiPAP as per pulmonary. Discharge planning in progress for tomorrow pending pulmonary clearance. Further recommendations to follow. The impression and plan of care has been dictated as directed. : I performed a history and examination of this patient, discussed the same with the dictator. I agree with the dictator's note ,documented as a scribe. Any additional findings or plans will be noted.
[2018-03-30 16:50] LABS: Glucose,Whole Blood 203 mg/dL (75-99)
[2018-03-30] MEDS: buPROPion SR 150 MG TABLET.ER PO SCH (20:36)
[2018-03-30] MEDS: traZODone HCL 100 MG TAB PO SCH (20:36)
[2018-03-30] MEDS: risperiDONE 1 MG TAB PO SCH (20:36)
[2018-03-30 20:48] LABS: Glucose,Whole Blood 229 mg/dL (75-99)
[2018-03-31] MEDS: IPRATROPIUM-ALBUTEROL 3 ML NEB INHALATION PRN ×2 (00:39→04:15)
[2018-03-31] MEDS: MORPHINE ORAL SOLN 10 MG/5 ML CUP PO PRN ×5 (04:33→19:58)
[2018-03-31 05:42] LABS: Glucose,Whole Blood 177 mg/dL (75-99)
[2018-03-31] MEDS: methylPREDNISolone SOD SUCCI 125 MG/2 ML VIAL IV SCH ×5 (06:24→23:12)
[2018-03-31] MEDS: PANTOPRAZOLE 40 MG TABLET PO SCH (06:48)
[2018-03-31] MEDS: INSULIN ASPART 100 UNIT/ML 1 ML 10 ML VIAL SQ SCH ×4 (06:49→21:19)
[2018-03-31] MEDS: AZITHROMYCIN 500 MG TAB PO SCH (07:48)
[2018-03-31] MEDS: HEPARIN SODIUM,PORCINE 5,000 UNIT/ML 1 ML VIAL SQ SCH ×2 (07:48→20:04)
[2018-03-31] MEDS: THEOPHYLLINE 24 HOUR 200 MG CAP.ER.24H PO SCH ×2 (07:49→20:03)
[2018-03-31] MEDS: VERAPAMIL SR 180 MG TABLET.ER PO SCH (07:49)
[2018-03-31] MEDS: ALPRAZolam 0.25 MG TAB PO PRN ×2 (07:57→16:02)
[2018-03-31] MEDS: PREGABALIN 75 MG CAP PO SCH ×2 (07:59→20:06)
[2018-03-31] MEDS: IPRATROPIUM-ALBUTEROL 3 ML NEB INHALATION SCH ×4 (08:03→19:55)
[2018-03-31] MEDS: FORMOTEROL FUMARATE 20 MCG/2 ML NEBU INHALATION SCH ×2 (08:03→19:55)
[2018-03-31] MEDS: BUDESONIDE 1 MG/2 ML NEBU INHALATION SCH ×2 (08:04→19:55)
[2018-03-31 11:50] LABS: Glucose,Whole Blood 180 mg/dL (75-99)
[2018-03-31 15:02] VITALS: BMI 19.5
--- NOTE | 2018-03-31 15:31 | P.PN ---
Subjective Progress Note Date: 03/31/18 47-year-old here patient presented to the emergency department because of significant rest or distress. She is known to me from office in previous hospitalizations. She has advanced COPD and she is on oxygen at 6 L/m nasal cannula. She has steroid and oxygen-dependent COPD and she is currently on 20 mg of prednisone on outpatient basis. She is also on a combination of Symbicort , Incruse, theophylline, and albuterol solution [id number]. She has been able to quit smoking over the years. She has had multiple has position for COPD exacerbation. She has a SUKUMAR PS machine at home to support the breathing based on her recurrent hospitalizations and COPD exacerbations. Her white cell count is at 19.0. Her renal function is within normal limits. Is quite cachectic and weak. Troponins are negative. BNP is not elevated. Chest x-ray shows COPD with hyperinflation. Her last hospitalization for COPD exacerbation was back in 03/14/2018. The patient was found to be in significant respiratory distress. The patient was placed on BiPAP here in the hospital at a pressure of 14/5 cm of water with an FiO2 of 40%. She is having labored breathing and she is able to work on a BiPAP and she is synchronous and she doesn't have any significant leaks on the mask. No altered mentation. Patient was reevaluated today on 03/27/2018, remains almost BiPAP dependent, continues to have shortness of breath, cough and wheezing. On physical examination, patient remains tight and bronchospastic. Chest x-ray showed improved aeration of both lungs. CBC and basic metabolic profile were reviewed. Patient is seen today 03/28/2018 in follow-up on the selective care unit. She is awake and alert in no acute distress. She is currently maintaining good O2 saturations in the 90s on 6 L high flow nasal cannula. Throughout the evening she was wearing the BiPAP. She is doing a bit better today compared to yesterday. Still not quite back to her baseline. Still dyspneic with minimal conversation. Blood cultures reveal no growth. White count 18.8. Hemoglobin 11.0. Bicarb 38. Creatinine 0.58. She continues on DuoNeb inhalations, Perforomist and Pulmicort inhalations, IV Solu-Medrol, flank, empiric antibiotics in the form of azithromycin. The patient is seen today 03/29/2018 in follow-up on the selective care unit. She is awake and alert in no acute distress. She is currently on the BiPAP. She states she is breathing easier today as compared to yesterday. Still not quite back to her baseline. She still somewhat bronchospastic and wheezy. One off BiPAP she is maintaining O2 saturations in the 90s on 6 L high flow nasal cannula. She's currently afebrile. Hemodynamically stable. Blood cultures reveal no growth. The patient is seen again today March 30, 2018 in follow-up on the selective care unit. She is currently comfortable and on her BiPAP. She states she's only been off approximately 15 minutes at a time. When she is off she is maintaining good O2 saturations in the 90s on 5 L/m per nasal cannula. She's currently afebrile. Slightly tachycardic. Slightly tachypneic. She does state she is breathing easier today as compared to yesterday but again not quite back to her baseline. She is continued on the maximum of all of her pulmonary medications. On 03/31/2018, I'm seeing Ameena for a follow-up. I can sedated the patient is gradually getting better. She's been off the BiPAP for at least 2 hours and on and off she still using the BiPAP during the day and continuously at nighttime. In the interim, the patient is utilizing oxygen at 5 L/m nasal cannula. Her shortness of breath gradually improving. No cough or sputum production at this point in time. No altered mentation. She is tolerating her diet. No nausea or vomiting pain no fever or chills. I've The patient on a combination of DuoNeb neb treatments around the clock, IV Solu Medrol 60 g every 6 hours, and she is also on a combination of Perforomist and Pulmicort neb last treatment twice a day. She is also on theophylline. Objective - Vital Signs Vital signs: Vital Signs Temp 97.4 F L 03/31/18 12:00 Pulse 92 03/31/18 12:00 Resp 20 03/31/18 12:00 BP 122/72 03/31/18 12:00 Pulse Ox 92 L 03/31/18 12:00 Intake & Output 03/30/18 03/31/18 03/31/18 18:59 06:59 18:59 Intake Total 582 Balance 582 Weight 53.2 kg 53.2 kg Intake: Oral 582 Other: Voiding Method Bedside Commode # Voids 2 1 - Exam The patient's currently wearing a BiPAP device. She seemed to be in mild-to- moderate distress. She is quite tachypnea. She does have conversational dyspnea. HEENT examination is grossly unremarkable. Neck supple. Full range of motion. No adenopathy thyromegaly or neck vein distention. Cardiovascular examination reveals regular rhythm rate. S1-S2 normal. No S3 or S4. No discernible murmur noted. Heart sounds are distant. Lungs reveal diffuse bilateral rhonchi. Breath sounds are diminished. There is prolongation. This some expiratory wheezes and crackles. Abdomen soft bowel sounds are heard. No masses or tenderness. Extremities are intact. No cyanosis clubbing or edema. Skin is without rash or lesion. Neurologic examination is brief but nonfocal. - Labs CBC & Chem 7: 03/28/18 05:32 03/28/18 05:32 Labs: Abnormal Lab Results - Last 24 Hours (Table) 03/30/18 03/30/18 03/31/18 Range/Units 16:20 20:47 05:40 POC Glucose (mg/dL) 203 H 229 H 177 H (75-99) mg/dL 03/31/18 Range/Units 11:40 POC Glucose (mg/dL) 180 H (75-99) mg/dL Microbiology - Last 24 Hours (Table) 03/25/18 07:05 Blood Culture - Preliminary Blood No Growth after 120 hours Assessment and Plan Plan: 1 COPD exacerbation complicated by tracheobronchitis and/or bronchopneumonia, improving slowly and the patient continues to be BiPAP dependent although dependency to BiPAP has improved during this current hospitalization and the patient is able to breathe for a few hours on oxygen at 5 L/m nasal cannula. She is gradually recovering from a COPD exacerbation. 2 Acute on chronic hypoxemic and hypercapnic respiratory failure 3 History of gastroesophageal reflux disease 4 Hyperlipidemia by history 5 coronary artery disease and previous Myocardial infarction 6 Previous history of pneumonia 7 Ongoing tobacco use with nicotine addiction 8 History of cervical cancer, status post hysterectomy 9 severe cachexia and debility seconds above-mentioned comorbidities Plan Continue same treatment. Continue gradually weaning patient off the BiPAP and ultimately came is to use the BiPAP few hours during the day and continuously at nighttime. Continued IV Solu Medrol. Continue bronchodilators. We'll continue to follow. Long-term prognosis poor specially with advanced end-stage lung disease.
[2018-03-31 16:21] LABS: Glucose,Whole Blood 214 mg/dL (75-99)
--- NOTE | 2018-03-31 17:07 | P.PN ---
Subjective Progress Note Date: 03/31/18 Progress note being dictated for Dr. Kaur Interval history: This a 47-year-old female admitted with acute COPD exacerbation, tracheobronchitis, respiratory failure and multiple other medical issues. Maintained on nebulized bronchodilators, Zithromax, systemic steroids. Breathing slowly improving, currently off BiPAP-has worn most of the morning, maintaining O2 sats in the low 90s on 6 L nasal cannula. Denies chest pain, palpitations. Afebrile. 03/31/18 maintained on nebulized bronchodilators [id number], systemic steroids, breathing slowly improving. continues on BiPAP throughout the night and intermittently throughout the day. Maintaining O2 sats of 92% on 5 L nasal cannula, currently. Tolerating diet, no nausea or vomiting. Denies chest pain , or palpitations. Afebrile. Objective - Vital Signs Vital signs: Vital Signs Temp 97.6 F 03/31/18 16:00 Pulse 95 03/31/18 16:27 Resp 18 03/31/18 16:00 BP 132/86 03/31/18 16:00 Pulse Ox 96 03/31/18 16:00 Intake & Output 03/30/18 03/31/18 03/31/18 18:59 06:59 18:59 Intake Total 582 Balance 582 Weight 53.2 kg 53.2 kg Intake: Oral 582 Other: Voiding Method Bedside Commode # Voids 2 1 - Exam PHYSICAL EXAM: VITAL SIGNS: As above GENERAL: Sitting up in bed, respiratory effort increased , cachectic HEENT: Conjunctivae normal. eyes normal. Oral mucosa moist. NECK: No JVD. No thyroid enlargement. No LNs CARDIOVASCULAR: S1, S2 muffled. No murmur RESPIRATION: Breath sounds diminished in the bases. No rhonchi, occasional fine scattered crackles. Expiratory wheezing ABDOMEN: Soft, nontender . No guarding. no masses palpable. .Bowel sounds heard. LEGS: No edema. no swelling PSYCHIATRY: Alert and oriented -3, mood and affect normal. NERVOUS SYSTEM: Cranial N 2-12 grossly normal. Moves all 4 limbs. Diffuse weakness No focal deficits. - Labs CBC & Chem 7: 03/28/18 05:32 03/28/18 05:32 Labs: Abnormal Lab Results - Last 24 Hours (Table) 03/30/18 03/31/18 03/31/18 Range/Units 20:47 05:40 11:40 POC Glucose (mg/dL) 229 H 177 H 180 H (75-99) mg/dL 03/31/18 Range/Units 16:20 POC Glucose (mg/dL) 214 H (75-99) mg/dL Microbiology - Last 24 Hours (Table) 03/25/18 07:05 Blood Culture - Final Blood No Growth after 144 hours Assessment and Plan Assessment: 1. Acute COPD exacerbation with acute purulent tracheobronchitis, possible bronchopneumonia, improving. 2. Acute on chronic hypercapnic, hypoxic respiratory failure secondary to end- stage COPD. 3. Ongoing nicotine dependence 4. CAD, history of [place] 5. Medical debility Plan: Continue on current medication regime ,monitoring and symptomatic treatment. Weaning of BiPAP in progress as per pulmonary. Maintain nebulized bronchodilators, steroids, antibiotics. Prognosis guarded given multiple complex medical issues. Further recommendations to follow. The impression and plan of care has been dictated as directed. : I performed a history and examination of this patient, discussed the same with the dictator. I agree with the dictator's note ,documented as a scribe. Any additional findings or plans will be noted.
[2018-03-31] MEDS: buPROPion SR 150 MG TABLET.ER PO SCH (20:02)
[2018-03-31] MEDS: risperiDONE 1 MG TAB PO SCH (20:02)
[2018-03-31] MEDS: traZODone HCL 100 MG TAB PO SCH (20:03)
[2018-03-31 21:09] LABS: Glucose,Whole Blood 207 mg/dL (75-99)
[2018-04-01] MEDS: IPRATROPIUM-ALBUTEROL 3 ML NEB INHALATION PRN ×2 (00:26→04:10)
[2018-04-01] MEDS: ALPRAZolam 0.25 MG TAB PO PRN ×3 (00:42→17:29)
[2018-04-01] MEDS: MORPHINE ORAL SOLN 10 MG/5 ML CUP PO PRN ×6 (00:42→23:14)
[2018-04-01 05:50] LABS: Anisocytosis Slight; Basophils % (A) 0 %; Eosinophils # (A) 0.3 k/uL (0-0.7); Eosinophils % (A) 1 %; HCT 35.2 % (34.0-46.0); HGB 10.6 gm/dL (11.4-16.0); Hypochromasia Marked; Lymphocytes # (A) 0.3 k/uL (1.0-4.8); Lymphocytes % (A) 1 %; MCH 25.7 pg (25.0-35.0); MCHC 30.2 g/dL (31.0-37.0); MCV 85.1 fL (80.0-100.0); Mean Platelet Volume 6.7; Monocytes # (A) 0.8 k/uL (0-1.0); Monocytes % (A) 2 %; Neutrophils # (A) 35.2 k/uL (1.3-7.7); Neutrophils % (A) 96 %; Platelet Count 422 k/uL (150-450); RBC 4.14 m/uL (3.80-5.40); RDW 16.1 % (11.5-15.5)
[2018-04-01 05:57] LABS: Glucose,Whole Blood 234 mg/dL (75-99)
[2018-04-01 06:01] LABS: WBC 36.7 k/uL (3.8-10.6)
[2018-04-01 06:11] LABS: Anion Gap 6 mmol/L; Blood Urea Nitrogen 31 mg/dL (7-17); Calcium 9.6 mg/dL (8.4-10.2); Carbon Dioxide 39 mmol/L (22-30); Chloride 94 mmol/L (98-107); Glucose 218 mg/dL (74-99); Potassium 4.4 mmol/L (3.5-5.1); Sodium 139 mmol/L (137-145)
[2018-04-01] MEDS: INSULIN ASPART 100 UNIT/ML 1 ML 10 ML VIAL SQ SCH ×4 (06:30→20:44)
[2018-04-01] MEDS: methylPREDNISolone SOD SUCCI 125 MG/2 ML VIAL IV SCH ×2 (06:31→12:33)
[2018-04-01] MEDS: PANTOPRAZOLE 40 MG TABLET PO SCH (06:32)
[2018-04-01] MEDS: FORMOTEROL FUMARATE 20 MCG/2 ML NEBU INHALATION SCH ×2 (07:38→19:17)
[2018-04-01] MEDS: IPRATROPIUM-ALBUTEROL 3 ML NEB INHALATION SCH ×4 (07:38→19:03)
[2018-04-01] MEDS: BUDESONIDE 1 MG/2 ML NEBU INHALATION SCH ×2 (07:38→19:03)
[2018-04-01] MEDS: VERAPAMIL SR 180 MG TABLET.ER PO SCH (08:17)
[2018-04-01] MEDS: HEPARIN SODIUM,PORCINE 5,000 UNIT/ML 1 ML VIAL SQ SCH ×2 (08:17→20:37)
[2018-04-01] MEDS: THEOPHYLLINE 24 HOUR 200 MG CAP.ER.24H PO SCH ×2 (08:17→20:39)
[2018-04-01] MEDS: AZITHROMYCIN 500 MG TAB PO SCH (08:17)
[2018-04-01] MEDS: PREGABALIN 75 MG CAP PO SCH ×2 (08:17→20:38)
[2018-04-01] MEDS: HYDROcodone/APAP 5-325MG 1 EACH TAB PO PRN (08:25)
[2018-04-01 12:01] LABS: Glucose,Whole Blood 245 mg/dL (75-99)
--- NOTE | 2018-04-01 12:41 | P.PN ---
Subjective Progress Note Date: 04/01/18 Principal diagnosis: COPD exacerbation 47-year-old here patient presented to the emergency department because of significant rest or distress. She is known to me from office in previous hospitalizations. She has advanced COPD and she is on oxygen at 6 L/m nasal cannula. She has steroid and oxygen-dependent COPD and she is currently on 20 mg of prednisone on outpatient basis. She is also on a combination of Symbicort , Incruse, theophylline, and albuterol solution [id number]. She has been able to quit smoking over the years. She has had multiple has position for COPD exacerbation. She has a SUKUMAR PS machine at home to support the breathing based on her recurrent hospitalizations and COPD exacerbations. Her white cell count is at 19.0. Her renal function is within normal limits. Is quite cachectic and weak. Troponins are negative. BNP is not elevated. Chest x-ray shows COPD with hyperinflation. Her last hospitalization for COPD exacerbation was back in 03/14/2018. The patient was found to be in significant respiratory distress. The patient was placed on BiPAP here in the hospital at a pressure of 14/5 cm of water with an FiO2 of 40%. She is having labored breathing and she is able to work on a BiPAP and she is synchronous and she doesn't have any significant leaks on the mask. No altered mentation. Patient was reevaluated today on 03/27/2018, remains almost BiPAP dependent, continues to have shortness of breath, cough and wheezing. On physical examination, patient remains tight and bronchospastic. Chest x-ray showed improved aeration of both lungs. CBC and basic metabolic profile were reviewed. Patient is seen today 03/28/2018 in follow-up on the selective care unit. She is awake and alert in no acute distress. She is currently maintaining good O2 saturations in the 90s on 6 L high flow nasal cannula. Throughout the evening she was wearing the BiPAP. She is doing a bit better today compared to yesterday. Still not quite back to her baseline. Still dyspneic with minimal conversation. Blood cultures reveal no growth. White count 18.8. Hemoglobin 11.0. Bicarb 38. Creatinine 0.58. She continues on DuoNeb inhalations, Perforomist and Pulmicort inhalations, IV Solu-Medrol, flank, empiric antibiotics in the form of azithromycin. The patient is seen today 03/29/2018 in follow-up on the selective care unit. She is awake and alert in no acute distress. She is currently on the BiPAP. She states she is breathing easier today as compared to yesterday. Still not quite back to her baseline. She still somewhat bronchospastic and wheezy. One off BiPAP she is maintaining O2 saturations in the 90s on 6 L high flow nasal cannula. She's currently afebrile. Hemodynamically stable. Blood cultures reveal no growth. The patient is seen again today March 30, 2018 in follow-up on the selective care unit. She is currently comfortable and on her BiPAP. She states she's only been off approximately 15 minutes at a time. When she is off she is maintaining good O2 saturations in the 90s on 5 L/m per nasal cannula. She's currently afebrile. Slightly tachycardic. Slightly tachypneic. She does state she is breathing easier today as compared to yesterday but again not quite back to her baseline. She is continued on the maximum of all of her pulmonary medications. On 03/31/2018, I'm seeing Ameena for a follow-up. I can sedated the patient is gradually getting better. She's been off the BiPAP for at least 2 hours and on and off she still using the BiPAP during the day and continuously at nighttime. In the interim, the patient is utilizing oxygen at 5 L/m nasal cannula. Her shortness of breath gradually improving. No cough or sputum production at this point in time. No altered mentation. She is tolerating her diet. No nausea or vomiting pain no fever or chills. I've The patient on a combination of DuoNeb neb treatments around the clock, IV Solu Medrol 60 g every 6 hours, and she is also on a combination of Perforomist and Pulmicort neb last treatment twice a day. She is also on theophylline. On 04/01/2018 patient seen in follow-up on [facility] care unit. She is currently on 6 L per high flow nasal cannula, and pulse ox is 95%, she is afebrile, hemodynamically stable, he states she has been off BiPAP support since 4:00 this morning, and she is tolerating quite well. She is feeling better in terms of dyspnea. Blood culture showed no growth, her WBC has noted to have increased to 36.7 from 18.8 back on 03/28/2018. Clinically patient has been afebrile, no chills, no worsening chest congestion, lung sounds reveal better air entry bilaterally. She has been treated with high-dose steroids at 60 mg every 6 hours, empiric antibiotics in the form of Zithromax, nebulized bronchodilators. Patient is feeling better, and is requesting to go home today. Objective - Vital Signs Vital signs: Vital Signs Temp 98.2 F 04/01/18 08:00 Pulse 92 04/01/18 11:08 Resp 20 04/01/18 08:00 BP 149/90 04/01/18 08:00 Pulse Ox 95 04/01/18 08:00 Intake & Output 03/31/18 04/01/18 04/01/18 18:59 06:59 18:59 Intake Total 360 240 Balance 360 240 Weight 53.2 kg 53.7 kg Intake: Oral 360 240 Other: Voiding Method Bedside Commode Bedside Commode # Voids 1 - Exam The patient's currently off her BiPAP settings 4:00 this morning, currently on 6 L per nasal cannula. She does have conversational dyspnea. HEENT examination is grossly unremarkable. Neck supple. Full range of motion. No adenopathy thyromegaly or neck vein distention. Cardiovascular examination reveals regular rhythm rate. S1-S2 normal. No S3 or S4. No discernible murmur noted. Heart sounds are distant. Lungs reveal diminished breath sounds. There is prolongation. Overall better aeration noted, no significant wheezing noted on today's exam, no rhonchi Abdomen soft bowel sounds are heard. No masses or tenderness. Extremities are intact. No cyanosis clubbing or edema. Skin is without rash or lesion. Neurologic examination is brief but nonfocal. - Labs CBC & Chem 7: 04/01/18 05:31 04/01/18 05:31 Labs: Abnormal Lab Results - Last 24 Hours (Table) 03/31/18 03/31/18 04/01/18 Range/Units 16:20 21:07 05:31 WBC 36.7 H* (3.8-10.6) k/uL Hgb 10.6 L (11.4-16.0) gm/dL MCHC 30.2 L (31.0-37.0) g/dL RDW 16.1 H (11.5-15.5) % Neutrophils # 35.2 H (1.3-7.7) k/uL Lymphocytes # 0.3 L (1.0-4.8) k/uL Chloride (98-107) mmol/L Carbon Dioxide (22-30) mmol/L BUN (7-17) mg/dL Creatinine (0.52-1.04) mg/dL Glucose (74-99) mg/dL POC Glucose (mg/dL) 214 H 207 H (75-99) mg/dL 04/01/18 04/01/18 Range/Units 05:31 05:56 WBC (3.8-10.6) k/uL Hgb (11.4-16.0) gm/dL MCHC (31.0-37.0) g/dL RDW (11.5-15.5) % Neutrophils # (1.3-7.7) k/uL Lymphocytes # (1.0-4.8) k/uL Chloride 94 L (98-107) mmol/L Carbon Dioxide 39 H (22-30) mmol/L BUN 31 H (7-17) mg/dL Creatinine 0.50 L (0.52-1.04) mg/dL Glucose 218 H (74-99) mg/dL POC Glucose (mg/dL) 234 H (75-99) mg/dL Microbiology - Last 24 Hours (Table) 03/25/18 07:05 Blood Culture - Final Blood No Growth after 144 hours Assessment and Plan Plan: Assessment: 1 COPD exacerbation complicated by tracheobronchitis and/or bronchopneumonia, improving slowly and the patient continues to be BiPAP dependent although dependency to BiPAP has improved during this current hospitalization and the patient is able to breathe for a few hours on oxygen at 5 L/m nasal cannula. She is gradually recovering from a COPD exacerbation. 2 Acute on chronic hypoxemic and hypercapnic respiratory failure 3 History of gastroesophageal reflux disease 4 Hyperlipidemia by history 5 coronary artery disease and previous Myocardial infarction 6 Previous history of pneumonia 7 Ongoing tobacco use with nicotine addiction 8 History of cervical cancer, status post hysterectomy 9 severe cachexia and debility seconds above-mentioned comorbidities Plan: Patient is improving, no fever, no chills, white count did increase to 36.7 and today's labs, acid was steroid induced, clinically patient is improving, blood cultures are negative, she is tolerating longer periods of time off BiPAP support. He is feeling better, and is requesting to go home today. Pulmonary standpoint patient could be considered for discharge home today. He has a trilogy ventilator, nebulized bronchodilators and home oxygen at home. Patient can continue on the prednisone taper, starting at 60 mg for 4 days, 50 mg for 4 days, 30 mg for 4 days, and her maintenance dose is 20 mg daily. Patient completed course of Zithromax, and her antibiotic can be discontinued. Follow- up with Dr. Molina in the office I performed a history & physical examination of the patient and discussed their management with my nurse practitioner, Elida Agarwal. I reviewed the nurse practitioner's note and agree with the documented findings and plan of care. Lung sounds are diminished. The findings and the impression was discussed with the patient. I attest to the documentation by the nurse practitioner. Time with Patient: Less than 30
--- NOTE | 2018-04-01 13:05 | XR ---
EXAMINATION TYPE: XR chest 2V DATE OF EXAM: 04/01/2018 HISTORY: copd, elevated WBC. REFERENCE: Previous study dated 03/25/2018. FINDINGS: The lungs are overinflated but clear. Pleural spaces are clear. The heart is not enlarged. IMPRESSION: COPD.
[2018-04-01 17:12] LABS: Glucose,Whole Blood 172 mg/dL (75-99)
--- NOTE | 2018-04-01 18:27 | PN ---
PROGRESS NOTE DATE OF SERVICE: 04/01/2018. INTERVAL HISTORY: This 47-year-old woman who was admitted with COPD exacerbation is being closely monitored. The patient is on BiPAP. The patient's 166 at this time, similar to settings at home, according to her. No chest pain. No palpitations. No fever. EXAM: Alert and oriented x3. Pulse is 97, blood pressure 114/80, respirations 18, temperature 97 degrees, pulse ox 94% on 6L. HEENT: Conjunctivae normal. NECK: No jugular venous distention. CARDIOVASCULAR: S1, S2 muffled. RESPIRATORY: Breath sounds diminished in the bases. Bilateral scattered rhonchi and crackles. ABDOMEN: Soft, nontender. NERVOUS SYSTEM: No focal deficits. LABS: WBC 36.7 and creatinine 0.5. ASSESSMENT: 1. Chronic obstructive pulmonary disease acute exacerbation with acute purulent tracheobronchitis with possible bronchopneumonia. 2. Acute on chronic hypoxic hypercapnic respiratory failure and chronic obstructive pulmonary disease. 3. Ongoing nicotine dependence. 4. Coronary artery disease, myocardial infarction. 5. Medical debility. RECOMMENDATIONS AND DISCUSSION: Continue current medical management, monitoring and symptomatic treatment. Otherwise at this time, I recommend continue with bronchodilators and steroids and antibiotics. Closely follow with Dr. Molina. Guarded prognosis. Further recommendations to follow. Continue the rest of the medications. MMODL / IJN: [id number] / MTDD
[2018-04-01 20:27] LABS: Glucose,Whole Blood 238 mg/dL (75-99)
[2018-04-01] MEDS: buPROPion SR 150 MG TABLET.ER PO SCH (20:37)
[2018-04-01] MEDS: risperiDONE 1 MG TAB PO SCH (20:38)
[2018-04-01] MEDS: traZODone HCL 100 MG TAB PO SCH (20:39)
[2018-04-02] MEDS: IPRATROPIUM-ALBUTEROL 3 ML NEB INHALATION PRN ×3 (00:46→23:43)
[2018-04-02] MEDS: ALPRAZolam 0.25 MG TAB PO PRN ×3 (04:09→17:33)
[2018-04-02] MEDS: MORPHINE ORAL SOLN 10 MG/5 ML CUP PO PRN ×4 (04:09→20:37)
[2018-04-02 06:22] LABS: Glucose,Whole Blood 150 mg/dL (75-99)
[2018-04-02] MEDS: INSULIN ASPART 100 UNIT/ML 1 ML 10 ML VIAL SQ SCH ×4 (06:30→21:58)
[2018-04-02] MEDS: PANTOPRAZOLE 40 MG TABLET PO SCH (06:31)
[2018-04-02] MEDS: BUDESONIDE 1 MG/2 ML NEBU INHALATION SCH ×2 (07:49→19:56)
[2018-04-02] MEDS: IPRATROPIUM-ALBUTEROL 3 ML NEB INHALATION SCH ×4 (07:49→19:57)
[2018-04-02] MEDS: FORMOTEROL FUMARATE 20 MCG/2 ML NEBU INHALATION SCH ×2 (07:49→19:56)
[2018-04-02] MEDS: HEPARIN SODIUM,PORCINE 5,000 UNIT/ML 1 ML VIAL SQ SCH ×2 (08:21→20:37)
[2018-04-02] MEDS: VERAPAMIL SR 180 MG TABLET.ER PO SCH (08:23)
[2018-04-02] MEDS: predniSONE 20 MG TAB PO SCH (08:23)
[2018-04-02] MEDS: THEOPHYLLINE 24 HOUR 200 MG CAP.ER.24H PO SCH ×2 (08:23→20:37)
[2018-04-02] MEDS: PREGABALIN 75 MG CAP PO SCH ×2 (08:23→20:36)
[2018-04-02 08:39] LABS: Anisocytosis Slight; HCT 37.3 % (34.0-46.0); HGB 11.5 gm/dL (11.4-16.0); Hypochromasia Moderate; MCH 26.1 pg (25.0-35.0); MCHC 30.9 g/dL (31.0-37.0); MCV 84.5 fL (80.0-100.0); Mean Platelet Volume 7.1; Platelet Count 410 k/uL (150-450); RBC 4.42 m/uL (3.80-5.40); RDW 16.4 % (11.5-15.5)
[2018-04-02 08:42] LABS: WBC 36.7 k/uL (3.8-10.6)
[2018-04-02 09:33] LABS: Anion Gap 6 mmol/L; Blood Urea Nitrogen 34 mg/dL (7-17); Calcium 10.4 mg/dL (8.4-10.2); Carbon Dioxide 38 mmol/L (22-30); Chloride 94 mmol/L (98-107); Glucose 189 mg/dL (74-99); Sodium 138 mmol/L (137-145)
[2018-04-02 12:03] LABS: Glucose,Whole Blood 235 mg/dL (75-99)
[2018-04-02] MEDS: HYDROcodone/APAP 5-325MG 1 EACH TAB PO PRN (12:09)
--- NOTE | 2018-04-02 12:23 | P.PN ---
Subjective Progress Note Date: 04/02/18 47-year-old here patient presented to the emergency department because of significant rest or distress. She is known to me from office in previous hospitalizations. She has advanced COPD and she is on oxygen at 6 L/m nasal cannula. She has steroid and oxygen-dependent COPD and she is currently on 20 mg of prednisone on outpatient basis. She is also on a combination of Symbicort , Incruse, theophylline, and albuterol solution [id number]. She has been able to quit smoking over the years. She has had multiple has position for COPD exacerbation. She has a SUKUMAR PS machine at home to support the breathing based on her recurrent hospitalizations and COPD exacerbations. Her white cell count is at 19.0. Her renal function is within normal limits. Is quite cachectic and weak. Troponins are negative. BNP is not elevated. Chest x-ray shows COPD with hyperinflation. Her last hospitalization for COPD exacerbation was back in 03/14/2018. The patient was found to be in significant respiratory distress. The patient was placed on BiPAP here in the hospital at a pressure of 14/5 cm of water with an FiO2 of 40%. She is having labored breathing and she is able to work on a BiPAP and she is synchronous and she doesn't have any significant leaks on the mask. No altered mentation. Patient was reevaluated today on 03/27/2018, remains almost BiPAP dependent, continues to have shortness of breath, cough and wheezing. On physical examination, patient remains tight and bronchospastic. Chest x-ray showed improved aeration of both lungs. CBC and basic metabolic profile were reviewed. Patient is seen today 03/28/2018 in follow-up on the selective care unit. She is awake and alert in no acute distress. She is currently maintaining good O2 saturations in the 90s on 6 L high flow nasal cannula. Throughout the evening she was wearing the BiPAP. She is doing a bit better today compared to yesterday. Still not quite back to her baseline. Still dyspneic with minimal conversation. Blood cultures reveal no growth. White count 18.8. Hemoglobin 11.0. Bicarb 38. Creatinine 0.58. She continues on DuoNeb inhalations, Perforomist and Pulmicort inhalations, IV Solu-Medrol, flank, empiric antibiotics in the form of azithromycin. The patient is seen today 03/29/2018 in follow-up on the selective care unit. She is awake and alert in no acute distress. She is currently on the BiPAP. She states she is breathing easier today as compared to yesterday. Still not quite back to her baseline. She still somewhat bronchospastic and wheezy. One off BiPAP she is maintaining O2 saturations in the 90s on 6 L high flow nasal cannula. She's currently afebrile. Hemodynamically stable. Blood cultures reveal no growth. The patient is seen again today March 30, 2018 in follow-up on the selective care unit. She is currently comfortable and on her BiPAP. She states she's only been off approximately 15 minutes at a time. When she is off she is maintaining good O2 saturations in the 90s on 5 L/m per nasal cannula. She's currently afebrile. Slightly tachycardic. Slightly tachypneic. She does state she is breathing easier today as compared to yesterday but again not quite back to her baseline. She is continued on the maximum of all of her pulmonary medications. On 03/31/2018, I'm seeing Ameena for a follow-up. I can sedated the patient is gradually getting better. She's been off the BiPAP for at least 2 hours and on and off she still using the BiPAP during the day and continuously at nighttime. In the interim, the patient is utilizing oxygen at 5 L/m nasal cannula. Her shortness of breath gradually improving. No cough or sputum production at this point in time. No altered mentation. She is tolerating her diet. No nausea or vomiting pain no fever or chills. I've The patient on a combination of DuoNeb neb treatments around the clock, IV Solu Medrol 60 g every 6 hours, and she is also on a combination of Perforomist and Pulmicort neb last treatment twice a day. She is also on theophylline. On 04/01/2018 patient seen in follow-up on [facility] care unit. She is currently on 6 L per high flow nasal cannula, and pulse ox is 95%, she is afebrile, hemodynamically stable, he states she has been off BiPAP support since 4:00 this morning, and she is tolerating quite well. She is feeling better in terms of dyspnea. Blood culture showed no growth, her WBC has noted to have increased to 36.7 from 18.8 back on 03/28/2018. Clinically patient has been afebrile, no chills, no worsening chest congestion, lung sounds reveal better air entry bilaterally. She has been treated with high-dose steroids at 60 mg every 6 hours, empiric antibiotics in the form of Zithromax, nebulized bronchodilators. Patient is feeling better, and is requesting to go home today. On 04/02/2018, the patient is still struggling with her breathing. I thought that she was looking better yesterday and when the thinking process of discharging her home. Later on she became again shortness of breath and she required BiPAP. Based on that she still on and off requiring a BiPAP throughout the day yesterday. A chest x-ray was repeated and a chest x-ray showed COPD without any evidence of pneumonia. White cell count is elevated at 15.6, probably steroid effect. No signs of septicemia. Renal function is stable. No other significant events overnight. The patient's additional Medrol has been discontinued and currently is on 60 mg prednisone as a part of the burst taper. Note that she is on a maintenance of 20 mg on outpatient basis. She has advanced end-stage COPD. She has extremely poor baseline performance and functional status despite her young age.. Chronic smoker. Objective - Vital Signs Vital signs: Vital Signs Temp 97.7 F 04/02/18 12:00 Pulse 126 H 04/02/18 12:00 Resp 24 04/02/18 12:00 BP 126/77 04/02/18 12:00 Pulse Ox 92 L 04/02/18 12:00 Intake & Output 04/01/18 04/02/18 04/02/18 18:59 06:59 18:59 Intake Total 500 500 Output Total 900 800 Balance -400 -300 Weight 52.1 kg Intake: IV 20 Invasive Line 2 20 Oral 500 480 Output: Urine 900 800 Other: Voiding Method Bedside Commode Bedside Commode Bedside Commode # Voids 1 1 1 - Exam The patient's currently wearing a BiPAP device. She seemed to be in mild-to- moderate distress. She is quite tachypnea. She does have conversational dyspnea. HEENT examination is grossly unremarkable. Neck supple. Full range of motion. No adenopathy thyromegaly or neck vein distention. Cardiovascular examination reveals regular rhythm rate. S1-S2 normal. No S3 or S4. No discernible murmur noted. Heart sounds are distant. Lungs reveal diffuse bilateral rhonchi. Breath sounds are diminished. There is prolongation. This some expiratory wheezes and crackles. Abdomen soft bowel sounds are heard. No masses or tenderness. Extremities are intact. No cyanosis clubbing or edema. Skin is without rash or lesion. Neurologic examination is brief but nonfocal. - Labs CBC & Chem 7: 04/02/18 08:21 04/02/18 08:21 Labs: Abnormal Lab Results - Last 24 Hours (Table) 04/01/18 04/01/18 04/02/18 Range/Units 16:58 20:26 06:21 WBC (3.8-10.6) k/uL MCHC (31.0-37.0) g/dL RDW (11.5-15.5) % Chloride (98-107) mmol/L Carbon Dioxide (22-30) mmol/L BUN (7-17) mg/dL Glucose (74-99) mg/dL POC Glucose (mg/dL) 172 H 238 H 150 H (75-99) mg/dL Calcium (8.4-10.2) mg/dL 04/02/18 04/02/18 04/02/18 Range/Units 08:21 08:21 11:57 WBC 36.7 H* (3.8-10.6) k/uL MCHC 30.9 L (31.0-37.0) g/dL RDW 16.4 H (11.5-15.5) % Chloride 94 L (98-107) mmol/L Carbon Dioxide 38 H (22-30) mmol/L BUN 34 H (7-17) mg/dL Glucose 189 H (74-99) mg/dL POC Glucose (mg/dL) 235 H (75-99) mg/dL Calcium 10.4 H (8.4-10.2) mg/dL Assessment and Plan Plan: 4 1 COPD exacerbation complicated by tracheobronchitis and/or bronchopneumonia, improving slowly and the patient continues to be BiPAP dependent although dependency to BiPAP has improved during this current hospitalization and the patient is able to breathe for a few hours on oxygen at 5 L/m nasal cannula. She is gradually recovering from a COPD exacerbation. Nevertheless, I don't think she is very towards discharge as she is still struggling with her breathing on today's evaluation she is requiring BiPAP consistently on and off during the day. She on the prednisone 60 mg by mouth daily as part of her burst taper. She had developed leukocytosis, probably steroid effect 2 Acute on chronic hypoxemic and hypercapnic respiratory failure 3 History of gastroesophageal reflux disease 4 Hyperlipidemia by history 5 coronary artery disease and previous Myocardial infarction 6 Previous history of pneumonia 7 Ongoing tobacco use with nicotine addiction 8 History of cervical cancer, status post hysterectomy 9 severe cachexia and debility seconds above-mentioned comorbidities 10 leukocytosis, likely steroid effect. Chest x-ray was repeated and there is no evidence of any pneumonia Plan: The plan is to continue same treatment. Notified is on amiodarone continue prednisone burst taper starting with 60 mg to go down to 20 mg which is the patient's baseline maintenance dose. The rest of medication be kept unchanged. We'll follow. Note that the long-term prognosis poor specially with advanced end-stage lung disease. Not a candidate for long-term from patient due to her smoking status.
[2018-04-02] MEDS ORDERED: METOPROLOL TARTRATE 12.5 MG TAB PO STA (15:29)
[2018-04-02 17:11] LABS: Glucose,Whole Blood 209 mg/dL (75-99)
--- NOTE | 2018-04-02 18:11 | PN ---
PROGRESS NOTE DATE OF SERVICE: 04/02/2018. This 47-year-old woman was admitted with COPD exacerbation also had acute bronchitis and possible bronchopneumonia. Patient is still short of breath. No chest pain. No palpitations. No fever. EXAM: Alert and oriented x3. Pulse 126, blood pressure 120/77, respiration 24, temperature 97.7, pulse ox 94% on 6 L. HEENT: Conjunctivae normal. NECK: No jugular venous distention. CARDIOVASCULAR: S1, S2. RESPIRATORY: Breath sounds diminished in the bases. Bilateral scattered rhonchi. ABDOMEN: Soft, nontender. LEGS: No edema, no swelling. NERVOUS SYSTEM: No focal deficits. LABS: WBC 6.7, sodium 130, potassium 5. ASSESSMENT: 1. Chronic obstructive pulmonary disease acute exacerbation with acute purulent tracheobronchitis with possible bronchopneumonia. 2. Acute on chronic hypoxic respiratory failure and chronic obstructive pulmonary disease. 3. Ongoing nicotine dependence. 4. Coronary artery disease, myocardial infarction. 5. Medical debility. RECOMMENDATIONS AND DISCUSSION: I recommend to continue current medication, continue to monitor, and symptomatic treatment. Otherwise at this time I would recommend to continue with bronchodilators, steroids. Closely follow. Guarded prognosis. Further recommendations to follow. Dr. John will follow. MMODL / IJN: [id number] /
[2018-04-02] MEDS: traZODone HCL 100 MG TAB PO SCH (20:37)
[2018-04-02] MEDS: buPROPion SR 150 MG TABLET.ER PO SCH (20:37)
[2018-04-02] MEDS: risperiDONE 1 MG TAB PO SCH (20:37)
[2018-04-02] MEDS: METOPROLOL TARTRATE 12.5 MG TAB PO SCH (20:41)
[2018-04-02 22:22] LABS: Glucose,Whole Blood 171 mg/dL (75-99)
[2018-04-03] MEDS: IPRATROPIUM-ALBUTEROL 3 ML NEB INHALATION PRN (03:44)
[2018-04-03 06:02] LABS: Glucose,Whole Blood 113 mg/dL (75-99)
[2018-04-03] MEDS: INSULIN ASPART 100 UNIT/ML 1 ML 10 ML VIAL SQ SCH ×2 (06:21→12:29)
[2018-04-03] MEDS: PANTOPRAZOLE 40 MG TABLET PO SCH (06:21)
[2018-04-03] MEDS: FORMOTEROL FUMARATE 20 MCG/2 ML NEBU INHALATION SCH (08:40)
[2018-04-03] MEDS: IPRATROPIUM-ALBUTEROL 3 ML NEB INHALATION SCH ×2 (08:40→11:46)
[2018-04-03] MEDS: BUDESONIDE 1 MG/2 ML NEBU INHALATION SCH (08:40)
[2018-04-03 09:00] VITALS: RESP 20; TEMP 98.8
[2018-04-03] MEDS: MORPHINE ORAL SOLN 10 MG/5 ML CUP PO PRN (09:04)
[2018-04-03] MEDS: THEOPHYLLINE 24 HOUR 200 MG CAP.ER.24H PO SCH (09:06)
[2018-04-03] MEDS: predniSONE 20 MG TAB PO SCH (09:06)
[2018-04-03] MEDS: VERAPAMIL SR 180 MG TABLET.ER PO SCH (09:06)
[2018-04-03] MEDS: METOPROLOL TARTRATE 12.5 MG TAB PO SCH (09:06)
[2018-04-03] MEDS: HEPARIN SODIUM,PORCINE 5,000 UNIT/ML 1 ML VIAL SQ SCH (09:06)
[2018-04-03] MEDS: PREGABALIN 75 MG CAP PO SCH (09:08)
--- NOTE | 2018-04-03 10:30 | P.CRDCN ---
History of Present Illness Consult date: 04/03/18 Requesting physician: Aung E Sheet Reason for Consult (text): Tachycardia Chief complaint: Shortness of breath History of present illness: This is a 47-year-old female who looks much older than her stated age , she has past medical history significant for asthma, severe COPD on home O2, sleep apnea, hyperlipidemia, GERD, history of thoracic spine fractures, initially presented to the hospital with symptoms of progressively worsening shortness of breath, and respiratory distress. Patient apparently had been short of breath for several days prior to her admission here, she was coughing a significant amount at home, of a greenish and yellow sputum. Patient does continue to smoke. She is actually been here in the hospital for a duration of 9 days, yesterday was noted on the monitor that the patient had an episode of sinus tachycardia and for this reason a cardiology consultation was requested. An echocardiogram with Doppler study was performed in December 2016 which revealed an ejection fraction of 55-60%. Chest x-ray on admission revealed COPD. Repeat chest x-ray performed yesterday also showed COPD. Blood pressure this morning 117/70, heart rate in the 90s this morning, 90% on 6 L of oxygen. White blood cell count 36.7, hemoglobin 11.5, platelet count 410. Sodium 138, potassium 5.0, BUN 34, creatinine 0.6. Calcium level 10.4, TSH 1.4. At the time of my examination this morning, patient states that her breathing is significantly improved and back to her normal according to her. Heart rate remains in the 90s this morning, sinus tachycardia. Intermittently, when the patient is having significant difficulty in breathing it is noted that the heart rate goes up into the 1 teens to 120 range. Past Medical History Past Medical History: Cancer, Chest Pain / Angina, COPD, Eye Disorder, GERD/ Reflux, Hyperlipidemia, Myocardial Infarction (NE), Osteoarthritis (OA), Pneumonia, Respiratory Disorder Additional Past Medical History / Comment(s): past thoracic spine fractures T8- T9, possible oseoporosis. End stage COPD , chronic hypoxic and hypercapnic respiratory failure, home O2 at 5-6L/NC and bipap at HS, steroid dependent, bronchitis, 1997 pt states she was told her EKG showed a past NE, cervical cancer with hysterectomy, PUD, carpal tunnel bilaterally, herniated discs C5-C6 and L5-L6, cervical/lumbar spondylosis, RLS, eczema, cataract L eye, tinnitis bilaterally, sinus problems. Last Myocardial Infarction Date:: UNK History of Any Multi-Drug Resistant Organisms: MRSA Date of last positivie culture/infection: 06/18/2015 MDRO Source:: SPUTUM Past Surgical History: Section, Cholecystectomy, Ear Surgery, Hysterectomy, Tubal Ligation Additional Past Surgical History / Comment(s): x 2, EGD, colonoscopy with benign polypectomy, R ear cyst with surgery.. Past Anesthesia/Blood Transfusion Reactions: No Reported Reaction Additional Past Anesthesia/Blood Transfusion Reaction / Comment(s): Pt has never recieved blood. Past Psychological History: Anxiety, Bipolar, Depression Smoking Status: Current some day smoker Past Alcohol Use History: None Reported Past Drug Use History: None Reported - Past Family History Father Family Medical History: No Reported History Additional Family Medical History / Comment(s): WAS AN ALCOHOLIC Mother Family Medical History: Cancer Additional Family Medical History / Comment(s): AT AGE 54-BOWEL CANCER Medications and Allergies Home Medications Medication Instructions Recorded Confirmed Type Albuterol Inhaler [Ventolin Hfa 2 puff INHALATION RT-QID PRN 01/03/14 03/25/18 History Inhaler] Omeprazole [PriLOSEC] 40 mg PO BID 01/03/14 03/25/18 History risperiDONE 3 mg PO HS 12/24/14 03/25/18 History traZODone HCL 300 mg PO HS 12/24/14 03/25/18 History Budesonide-Formot 160-4.5 Mcg 2 puff INHALATION RT-BID puff 07/13/16 03/25/18 Rx [Symbicort 160-4.5 Mcg Inhaler] Ipratropium-Albuterol Nebulize 3 ml INHALATION RT-QID neb 01/20/17 03/25/18 Rx [Duoneb 0.5 mg-3 mg/3 ml Soln] Theophylline 24 Hour [Akhil-24] 200 mg PO BID 07/06/17 03/25/18 History Fluticasone Nasal [place] [Flonase 2 spray EA NOSTRIL DAILY 12/21/17 03/25/18 History Nasal [place]] Pregabalin [Lyrica] 150 mg PO BID 12/21/17 03/25/18 History predniSONE 20 mg PO DAILY 01/19/18 03/25/18 History Grant/D3/Mag11/Zinc/Certified Massage Therapist/Gianni/Bor 1 tab PO DAILY 03/13/18 03/25/18 History [Caltrate 600+D Plus Tablet] HYDROcodone/APAP 5-325MG [[place] 1 tab PO BID 03/13/18 03/25/18 History 5-325] Umeclidinium [place] [Incruse 1 puff INHALATION RT-DAILY 03/13/18 03/25/18 History Ellipta] Verapamil HCl [Verapamil ER] 180 mg PO DAILY 03/13/18 03/25/18 History amLODIPine [Norvasc] 10 mg PO DAILY 03/13/18 03/25/18 History Ipratropium [place] [Atrovent Hfa] 2 puff INHALATION RT-QID PRN 03/25/18 History Multivitamins, Thera [Multivitamin 1 tab PO DAILY@1200 03/25/18 03/25/18 History (formulary)] buPROPion HCL [Wellbutrin SR] 150 mg PO HS 03/25/18 03/25/18 History hydrALAZINE HCL [Apresoline] 25 mg PO TID PRN 03/25/18 03/25/18 History predniSONE See Taper PO DAILY 03/25/18 03/25/18 History Allergies Allergy/AdvReac Type Severity Reaction Status Date / Time aripiprazole [From Abilify] Allergy Rash/Hives Verified 03/25/18 11:13 cephalexin [From Keflex] Allergy Unknown Verified 03/25/18 11:13 honey Allergy Rash/Hives Verified 03/25/18 11:13 methadone [Methadone] Allergy Itching Verified 03/25/18 11:13 naproxen Allergy Rash/Hives Verified 03/25/18 11:13 sulfamethoxazole Allergy Rash/Hives Verified 03/25/18 11:13 [From Bactrim] tetracycline [Tetracycline] Allergy Rash/Hives Verified 03/25/18 11:13 trimethoprim [From Bactrim] Allergy Rash/Hives Verified 03/25/18 11:13 adhesive tape AdvReac Rash/Hives Verified 03/25/18 11:13 tramadol HCl [From Ultram] AdvReac SEIZURES Verified 03/25/18 11:13 tromethamine AdvReac Nausea & Verified 03/25/18 11:13 Vomiting Physical Exam Vitals: Vital Signs Temp Pulse Pulse Resp BP BP Pulse Ox 04/03/18 08:58 76 04/03/18 08:51 78 04/03/18 08:50 78 04/03/18 08:41 95 04/03/18 08:40 76 04/03/18 08:00 98.8 F 110 H 20 117/71 89 L 04/03/18 04:00 97 F L 99 22 139/70 91 L 04/03/18 03:54 86 04/03/18 03:44 89 04/03/18 00:00 97.4 F L 74 22 109/64 98 04/02/18 23:53 75 04/02/18 23:43 80 04/02/18 20:17 96 04/02/18 20:07 98 04/02/18 20:06 98 04/02/18 20:00 97.4 F L 77 22 104/66 92 L 04/02/18 19:58 98 98 04/02/18 15:47 88 04/02/18 15:37 88 04/02/18 15:27 130 H 24 04/02/18 15:20 97.7 F 130 H 24 113/69 92 L 04/02/18 12:00 97.7 F 126 H 24 126/77 92 L 04/02/18 11:33 132 H 04/02/18 11:22 132 H Intake and Output 04/02/18 04/03/18 04/03/18 22:59 06:59 14:59 Intake Total 250 118 Output Total 500 Balance -250 118 Intake: IV 10 Invasive Line 2 10 Oral 240 118 Output: Urine 500 Other: Voiding Method Toilet Toilet # Voids 1 Weight 53.9 kg PHYSICAL EXAMINATION: GENERAL: 87-year-old female who appears much older than her stated age. HEENT: Head is atraumatic, normocephalic. Pupils equal, round. Sclera anicteric. Conjunctiva are clear. Mucous membranes of the mouth are moist. Neck is supple. There is no elevated jugular venous pressure. No carotid bruit is heard. HEART EXAMINATION: Heart S1 and S2 normal, tachycardic. CHEST EXAMINATION: Lungs reveal diffuse bilateral scattered rhonchi and wheezing , decreased air exchange throughout. ABDOMEN: Soft, nontender. Bowel sounds are heard. No organomegaly noted. EXTREMITIES: 2+ peripheral pulses with no evidence of peripheral edema and no calf tenderness noted. NEUROLOGIC patient is awake, alert and orientedX3 . Results 04/02/18 08:21 04/02/18 08:21 Current Medications Generic Name Dose Route Start Last Admin Trade Name Freq PRN Reason Stop Dose Admin Hydrocodone Bitart/Acetaminophen 1 each 03/25/18 21:00 04/02/18 12:09 [place] 5-325 PO 1 each BID PRN Administration Moderate Pain Albuterol/Ipratropium 3 ml 03/25/18 08:18 04/03/18 03:44 Duoneb 0.5 Mg-3 Mg/3 Ml Soln INHALATION 3 ml RT-Q4H PRN Administration Shortness Of Breath Or Wheezing Albuterol/Ipratropium 3 ml 03/25/18 12:00 04/03/18 08:40 Duoneb 0.5 Mg-3 Mg/3 Ml Soln INHALATION 3 ml RT-QID [place] Administration Alprazolam 0.25 mg 03/25/18 20:25 04/02/18 17:33 Xanax PO 0.25 mg QID PRN Administration Anxiety Budesonide 1 mg 03/26/18 20:00 04/03/18 08:40 Pulmicort INHALATION 1 mg RT-BID [place] Administration Bupropion HCl 150 mg 03/25/18 21:00 04/02/18 20:37 Wellbutrin Sr PO 150 mg HS [place] Administration Formoterol Fumarate 20 mcg 03/26/18 20:00 04/03/18 08:40 Perforomist INHALATION 20 mcg RT-BID [place] Administration Guaifenesin 200 mg 03/25/18 21:17 03/29/18 16:17 Robitussin PO 200 mg Q6H PRN Administration Cough Heparin Sodium (Porcine) 5,000 unit 03/25/18 13:45 04/03/18 09:06 Heparin SQ 5,000 unit Q12HR [place] Administration Hydralazine HCl 25 mg 03/25/18 20:15 Apresoline PO TID PRN BP>150/90 Insulin Aspart 0 unit 03/25/18 21:00 04/03/18 06:21 Novolog SQ Not Given ACHS [place] Protocol Metoprolol Tartrate 12.5 mg 04/02/18 21:00 04/03/18 09:06 Lopressor PO 12.5 mg BID [place] Administration Miscellaneous Information 1 each 03/25/18 20:31 Potassium Per Protocol MISCELLANE DAILY PRN Per Protocol Protocol Morphine Sulfate 6 mg 03/26/18 21:49 04/03/18 09:04 Morphine Oral Demi 2mg/Ml PO 6 mg Q4H PRN Administration Pain/Discomfort Pantoprazole Sodium 40 mg 03/26/18 07:30 04/03/18 06:21 Protonix PO 40 mg AC-[id number] [place] Administration Prednisone 60 mg 04/02/18 09:00 04/03/18 09:06 PO 60 mg DAILY [place] Administration Pregabalin 150 mg 03/25/18 21:00 04/03/18 09:08 Lyrica PO 150 mg BID [place] Administration Risperidone 3 mg 03/25/18 21:00 04/02/18 20:37 Risperdal PO 3 mg HS [place] Administration Sodium Chloride 10 ml 03/26/18 21:00 04/03/18 09:06 Saline Flush IV 10 ml BID [place] Administration Theophylline 200 mg 03/25/18 21:00 04/03/18 09:06 Akhil-24 PO 200 mg BID [place] Administration Trazodone HCl 300 mg 03/25/18 21:00 04/02/18 20:37 Desyrel PO 300 mg HS [place] Administration Verapamil HCl 180 mg 03/26/18 11:30 04/03/18 09:06 Isoptin Sr PO 180 mg DAILY [place] Administration Intake and Output 04/02/18 04/03/18 04/03/18 22:59 06:59 14:59 Intake Total 250 118 Output Total 500 Balance -250 118 Intake: IV 10 Invasive Line 2 10 Oral 240 118 Output: Urine 500 Other: Voiding Method Toilet Toilet # Voids 1 Weight 53.9 kg 04/02/18 08:21 04/02/18 08:21 EKG Interpretations (text) EKG on presentation here showed a sinus tachycardia with no acute changes. Assessment and Plan Plan: Assessment and plan #1 respiratory distress with evidence of COPD exacerbation, complicated by tracheobronchitis and pneumonia #2 sinus tachycardia, likely secondary to COPD #3 history of severe COPD, home O2 use #4 hyperlipidemia #5 hypertension #6 history of cervical cancer #7 nicotine dependence #8 severe cachexia #9 leukocytosis, likely secondary to steroids Plan We will obtain an echocardiogram with Doppler study, patient did have an echo performed in December of last year which revealed a normal left ventricular systolic function. We will also increase dose of verapamil 240 mg daily, and TSH level was normal. Further recommendations to follow. DNP note has been reviewed, I agree with a documented findings and plan of care. Patient was seen and examined.
[2018-04-03 11:06] VITALS: BP 120/73
[2018-04-03] MEDS: HYDROcodone/APAP 5-325MG 1 EACH TAB PO PRN (11:07)
[2018-04-03 11:49] LABS: Glucose,Whole Blood 175 mg/dL (75-99)
[2018-04-03 12:02] VITALS: PULSE 99
--- NOTE | 2018-04-03 12:29 | ECHOF ---
Referral Reason:tachycardia MEASUREMENTS -------- HEIGHT: 165.1 cm WEIGHT: 53.5 kg BP: IVSd: 1.1 cm (0.6 - 1.1) LVIDd: 3.2 cm (3.9 - 5.3) LVPWd: 1.2 cm (0.6 - 1.1) IVSs: 1.4 cm LVIDs: 2.4 cm LVPWs: 1.4 cm LA Diam: 3.0 cm (2.7 - 3.8) Ao Diam: 2.5 cm (2.0 - 3.7) AV Cusp: 1.3 cm (1.5 - 2.6) LA Diam: 2.8 cm (2.7 - 3.8) MV EXCURSION: 18.221 mm (> 18.000) MV EF SLOPE: 76 mm/s (70 - 150) EPSS: 0.3 cm MV E Chas: 0.71 m/s MV DecT: 203 ms MV A Chas: 0.83 m/s MV E/A Ratio: 0.86 RAP: 5.00 mmHg RVSP: 34.32 mmHg FINDINGS -------- Undetermined rhythm. This was a technically adequate study. LV size, wall thickness and systolic function are normal, with an EF greater than 55%. The left saman tricular size is normal. The right ventricle is normal in size. The left atrial size is normal. The right atrial size is normal. There is mild aortic valve sclerosis. There is no evidence of aortic regurgitation. Mild mitral annular calcification present. Mild mitral regurgitation is present. Mild tricuspid regurgitation present. There is no evidence of pulmonary hypertension. The right v entricular systolic pressure, as measured by Doppler, is 34.32mmHg. There is no pulmonic regurgitation present. The aortic root size is normal. There is no pericardial effusion. CONCLUSIONS -------- 1. LV size, wall thickness and systolic function are normal, with an EF greater than 55%. 2. The left ventricular size is normal. 3. The right ventricle is normal in size. 4. The left atrial size is normal. 5. The right atrial size is normal. 6. There is mild aortic valve sclerosis. 7. Mild mitral annular calcification present. 8. Mild mitral regurgitation is present. 9. Mild tricuspid regurgitation present. 10. There is no evidence of pulmonary hypertension. 11. The right ventricular systolic pressure, as measured by Doppler, is 34.32mmHg. 12. There is no pulmonic regurgitation present. 13. The aortic root size is normal. 14. There is no pericardial effusion. PROGRAM ASSISTANT: Cristina Hanson RDCS
--- NOTE | 2018-04-03 19:48 | DS ---
DISCHARGE SUMMARY DATE OF SERVICE: 04/03/2018 FINAL DIAGNOSES: 1. Chronic obstructive pulmonary disease, acute exacerbation, with acute purulent tracheobronchitis with possible bronchopneumonia. 2. Acute on chronic hypoxic respiratory failure with chronic obstructive pulmonary disease. 3. Ongoing nicotine dependence. 4. Coronary artery disease, myocardial infarction. 5. Medical debility. DISCHARGE DISPOSITION: The patient will be discharged in stable condition with guarded prognosis. HISTORY OF PRESENT ILLNESS: This 47-year-old woman with a past medical history of multiple medical problems was admitted COPD, acute exacerbation, and multiple other medical issues. Patient was treated symptomatically. Bronchodilators and steroids were given. The patient improved significantly. BiPAP was used and tapered down to the patient's home dose. Otherwise, the patient will be followed in the outpatient setting by Dr. Italo John. On exam, vitals are stable. CARDIOVASCULAR SYSTEM: S1, S2 muffled. ABDOMEN: Soft. NERVOUS SYSTEM: No focal deficit. RESPIRATORY SYSTEM: A few scattered rhonchi. DISCHARGE ADVICE AND MEDICATIONS: 1. Cardiac diet. 2. Activity limited until followup. 3. Follow up with Dr. John in 2-3 days. 4. Follow up with Dr. Molina as recommended. 5. Follow up with Cardiology as recommended. 6. Ventolin HFA 2 puffs q.6 p.r.n. 7. Wellbutrin SR 150 mg p.o. at bedtime. 8. Calcium with vitamin D 1 p.o. daily. 9. Flonase nasal spray 2 sprays daily. 10.Apresoline 25 mg p.r.n. 11.[place] 5 mg b.i.d. 12.Atrovent 2 puffs b.i.d. 13.Multivitamins 1 p.o. daily. 14.Prilosec 40 mg p.o. b.i.d. 15.Prednisone 20 mg p.o. daily. 16.Lyrica 150 mg p.o. b.i.d. 17.Risperdal 3 mg at bedtime. 18.Akhil-24 200 mg p.o. b.i.d. 19.Trazodone 300 mg p.o. at bedtime. 20.Incruse Ellipta 1 puff daily. 21.Symbicort 1 b.i.d. 22.DuoNeb q.i.d. and p.r.n. 23.Lopressor 12.5 mg b.i.d. 24.Insulin taper: 40 mg daily for 3 days; 30 mg daily for 3 days; 20 mg daily for 3 days; 10 mg daily for 3 days; and then decide later. 25.Isoptin 240 mg p.o. daily. EEDR / LEESA: [id number] /
[2018-04-04] MEDS ORDERED: VERAPAMIL SR 240 MG TABLET.ER PO SCH (09:00)
== END 2018-04-03 14:15 | disposition home health service (06) | DRG 189 ==
LOC: EC 06:39 → 6SEL 08:18
PROVIDERS: ADMIT Family Medicine; ATTEND Family Medicine
PROC: 5A09557 Assistance with Respiratory Ventilation, Greater than 96 Consecutive Hours, Continuous Positive Airway Pressure (ICD-10-PCS; principal; 2018-03-25)
DX: J96.21 Acute and chronic respiratory failure with hypoxia (principal); J18.9 Pneumonia, unspecified organism; E46 Unspecified protein-calorie malnutrition; Z68.1 Body mass index [BMI] 19.9 or less, adult; F11.20 Opioid dependence, uncomplicated; J44.1 Chronic obstructive pulmonary disease with (acute) exacerbation; R64 Cachexia; J44.0 Chronic obstructive pulmonary disease with (acute) lower respiratory infection; J96.22 Acute and chronic respiratory failure with hypercapnia; E78.5 Hyperlipidemia, unspecified; E86.0 Dehydration; F17.210 Nicotine dependence, cigarettes, uncomplicated; F32.9 Major depressive disorder, single episode, unspecified; F41.9 Anxiety disorder, unspecified; G25.81 Restless legs syndrome; G47.33 Obstructive sleep apnea (adult) (pediatric); I10 Essential (primary) hypertension; I25.10 Atherosclerotic heart disease of native coronary artery without angina pectoris; I25.2 Old myocardial infarction; K21.9 Gastro-esophageal reflux disease without esophagitis; M19.90 Unspecified osteoarthritis, unspecified site; T38.0X5A Adverse effect of glucocorticoids and synthetic analogues, initial encounter; Z79.51 Long term (current) use of inhaled steroids; Z79.52 Long term (current) use of systemic steroids; Z79.899 Other long term (current) drug therapy; Z85.41 Personal history of malignant neoplasm of cervix uteri; Z87.01 Personal history of pneumonia (recurrent); Z87.11 Personal history of peptic ulcer disease; Z90.710 Acquired absence of both cervix and uterus; Z99.81 Dependence on supplemental oxygen; J20.9 Acute bronchitis, unspecified; Z88.1 Allergy status to other antibiotic agents; Z88.2 Allergy status to sulfonamides; Z88.8 Allergy status to other drugs, medicaments and biological substances; Z91.018 Allergy to other foods
CPT/HCPCS: 36415; 36600; 71045; 71046; 80048; 80053; 81001; 82550; 82553; 82805; 83735; 83880; 84132; 84443; 84484; 85025; 85027; 85610; 85730; 87040; 87502; 93005; 93306; 94640; 94660; 94760; 96365; 96372; 96375; 96376; 99291

== ENCOUNTER → 2018-04-11 | Outpatient (CLI) | payer OTHER ==
--- NOTE | 2018-04-12 08:36 | CT ---
EXAMINATION TYPE: CT cervical spine wo con DATE OF EXAM: 04/11/2018 COMPARISON: 10/24/2011 HISTORY: Cervicalgia CT DLP: 287.[address] of the cervical spine was performed with bone and soft tissue window settings submitted . Coronal and sagittal reconstruction is obtained C2-3: Within normal limits C3-4: Moderate degenerative disc space narrowing. Anterolisthesis of C3 on C4 measuring 2.3 mm and re lated to severe degenerative change of the cervical apophyseal joints left greater than right. There is moderate left-sided foraminal encroachment. No evidence for central stenosis at this time. C4-5: Severe disc space narrowing. Circumferential disc bulge with effacement of the ventral thecal s ac. Mild bilateral foraminal encroachment. No evidence for central stenosis. Degenerative change cerv ical apophyseal joints. Moderate ventral spondylosis. C5-6:Severe disc space narrowing. Circumferential disc bulge with effacement of the ventral thecal sa c. Mild bilateral foraminal encroachment. No evidence for central stenosis. Degenerative change cervi jeanine apophyseal joints. Moderate ventral spondylosis. C6-7:Severe disc space narrowing. Circumferential disc bulge with effacement of the ventral thecal sa c. Mild bilateral foraminal encroachment. No evidence for central stenosis. Degenerative change cervi jeanine apophyseal joints. Moderate ventral spondylosis. C7-T1:Severe disc space narrowing. Circumferential disc bulge with effacement of the ventral thecal s ac. Mild bilateral foraminal encroachment. No evidence for central stenosis. Degenerative change cerv ical apophyseal joints. Moderate ventral spondylosis. No evidence for fracture. No osseous lesions seen. Moderately severe upper lobe emphysematous change. IMPRESSION: 1. Multilevel degenerative disc disease and spondylosis noted and posterior disc bulge. No evidence f or central stenosis or balta herniation. Multilevel foraminal encroachment.
== END ==
LOC: RADCTMAIN 16:49
PROVIDERS: ATTEND Psychiatry & Neurology Neurology
DX: M50.31 Other cervical disc degeneration, high cervical region (principal); M47.812 Spondylosis without myelopathy or radiculopathy, cervical region; M50.221 Other cervical disc displacement at C4-C5 level
CPT/HCPCS: 72125

== ENCOUNTER 2018-05-21 00:20 | Inpatient (IN) | payer OTHER ==
[2018-05-21] MEDS ORDERED: IPRATROPIUM-ALBUTEROL 3 ML NEB INHALATION STA (00:36)
[2018-05-21] MEDS ORDERED: predniSONE 20 MG TAB PO STA (00:36)
[2018-05-21 00:57] LABS: Anisocytosis Slight; Basophils % (A) 0 %; Eosinophils # (A) 0.1 k/uL (0-0.7); Eosinophils % (A) 1 %; Hypochromasia Marked; Lymphocytes # (A) 2.1 k/uL (1.0-4.8); Lymphocytes % (A) 16 %; MCH 24.2 pg (25.0-35.0); MCV 80.8 fL (80.0-100.0); Mean Platelet Volume 6.3; Monocytes # (A) 0.6 k/uL (0-1.0); Monocytes % (A) 5 %; Neutrophils # (A) 10.4 k/uL (1.3-7.7); Neutrophils % (A) 78 %; Platelet Count 564 k/uL (150-450); RBC 4.95 m/uL (3.80-5.40); WBC 13.3 k/uL (3.8-10.6)
[2018-05-21 01:03] LABS: ALT 19 U/L (9-52); AST 15 U/L (14-36); Albumin 4.1 g/dL (3.5-5.0); Alkaline Phosphatase 91 U/L (38-126); Anion Gap 5 mmol/L; Blood Urea Nitrogen 22 mg/dL (7-17); Calcium 9.8 mg/dL (8.4-10.2); Carbon Dioxide 34 mmol/L (22-30); Chloride 103 mmol/L (98-107); Glucose 127 mg/dL (74-99); Potassium 4.2 mmol/L (3.5-5.1); Sodium 142 mmol/L (137-145); Total Bilirubin 0.3 mg/dL (0.2-1.3)
[2018-05-21 01:13] LABS: D-Dimer 0.2 mg/L FEU (<0.60); INR 0.9 (<1.2); Prothrombin Time 9.3 sec (9.0-12.0)
[2018-05-21 01:16] LABS: Creatine Kinase 33 U/L (30-135)
[2018-05-21 01:17] LABS: Partial Thromboplastin Time 20.8 sec (22.0-30.0)
--- NOTE | 2018-05-21 01:17 | XR ---
EXAMINATION TYPE: XR chest 1V portable DATE OF EXAM: 05/21/2018 COMPARISON: 04/01/2018 HISTORY: Difficulty breathing TECHNIQUE: Single frontal view of the chest is obtained. FINDINGS: There is no heart failure nor confluent pneumonic infiltrate. There is slight increased ma rkings over the left lower lobe at the lung base. Heart size is normal. There is no pleural effusion. There is old left-sided healed rib fractures. IMPRESSION: This probably new small infiltrate at the lateral left lung base compared to old exam. N o heart failure.
[2018-05-21 01:28] LABS: Creatine Kinase MB 2.4 ng/mL (0.0-2.4); Troponin I <0.012 ng/mL (0.000-0.034)
[2018-05-21] MEDS ORDERED: LEVOFLOXACIN 750MG-D5W PMX 750 MG in DEXTROSE/WATER 1 150ML.BAG IVPB STA (02:08)
[2018-05-21] MEDS ORDERED: MORPHINE SULFATE 4 MG/ML SYRINGE IV STA (02:27)
[2018-05-21] MEDS: IPRATROPIUM-ALBUTEROL 3 ML NEB INHALATION PRN ×3 (03:36→11:33)
[2018-05-21] MEDS: SODIUM CHLORIDE 0.9% 1,000 ML IV SCH ×2 (06:49→12:35)
[2018-05-21] MEDS: PANTOPRAZOLE 40 MG TABLET PO SCH (06:51)
[2018-05-21] MEDS: IPRATROPIUM 0.5 MG/2.5 ML NEBU INHALATION SCH ×2 (07:29→11:47)
[2018-05-21] MEDS: ALBUTEROL NEBULIZED 2.5 MG/3 ML INHALATION SCH ×2 (07:29→11:47)
[2018-05-21] MEDS ORDERED: SYMBICORT 160-4.5 MCG INHALER INHALATION SCH (08:00)
[2018-05-21] MEDS: THEOPHYLLINE 24 HOUR 200 MG CAP.ER.24H PO SCH ×2 (08:03→19:46)
[2018-05-21] MEDS: PREGABALIN 75 MG CAP PO SCH ×2 (08:03→19:45)
[2018-05-21] MEDS: VERAPAMIL SR 240 MG TABLET.ER PO SCH (08:04)
[2018-05-21] MEDS: METOPROLOL TARTRATE 12.5 MG TAB PO SCH ×2 (08:04→19:45)
[2018-05-21] MEDS ORDERED: HYDROcodone/APAP 5-325MG 1 EACH TAB PO SCH (09:00)
[2018-05-21] MEDS ORDERED: predniSONE 20 MG TAB PO SCH (09:00)
--- NOTE | 2018-05-21 12:11 | P.CNPUL ---
History of Present Illness Consult date: 05/21/18 Reason for consult: dyspnea, cough Chief complaint: Shortness of breath, cough, phlegm production History of present illness: This is a 47-year-old white female patient of Dr. John, who also follows with Dr. Molina in the pulmonary office for her end-stage COPD, with chronic actinic respiratory failure, prednisone dependent, on AVAPS ventilator for chronic hypercapnic respiratory failure. Patient has had multiple hospitalizations for recurrent pulmonary complications related to COPD. Unfortunately she continues to smoke, she states she is currently down to 2 cigarettes a day. She is on a combination of Symbicort, increased, theophylline , and nebulized treatments around the clock. She is on AVAPS at home to support her breathing based on her recurrent hospitalizations and COPD exacerbations. Today she presented with complaints of worsening shortness of breath, cough, with production of yellow sputum. Chest x-ray was completed and it showed no acute cardiopulmonary process. This was reviewed by Dr. Lino. She was placed on BiPAP support, with pressures 12 over 4, and 50%. Blood work showed WBC of 13.3, hemoglobin of 12.0, d-dimer was within normal limits, electrolytes were essentially unremarkable, the CO2 of 34, indicating chronic hypercapnic respiratory failure, BUN is 22, creatinine 0.46. Cardiac enzymes, proBNP, and LFTs were all within normal limits. Patient has been afebrile, she is slightly tachycardic with a heart rate in the low 100s, on presentation she was hypoxemic with a pulse ox of 81%. Her pulse ox right now is 93% on 50% FiO2. He remains tachypneic, with a respiratory rate in the 20s, and at times in the low 30s. Lung sounds are positive for breast sounds, and diffuse wheezes. Patient is awake and alert, she is very dyspneic with conversation, and is not able to provide lengthy answers. Patient was started on steroids, empiric antibiotics in the form of Levaquin, nebulized bronchodilators, and Symbicort. Review of Systems All systems: negative Constitutional: Denies chills, Denies fever Eyes: denies blurred vision, denies pain Ears, nose, mouth and throat: Denies headache, Denies sore throat Cardiovascular: Reports decreased exercise tolerance, Reports dyspnea on exertion, Denies chest pain, Denies shortness of breath Respiratory: Denies cough Gastrointestinal: Denies abdominal pain, Denies diarrhea, Denies nausea, Denies vomiting Genitourinary: Denies dysuria, Denies hematuria Musculoskeletal: Denies myalgias Integumentary: Denies pruritus, Denies rash Neurological: Denies numbness, Denies weakness Psychiatric: Denies anxiety, Denies depression Endocrine: Denies fatigue, Denies weight change Past Medical History Past Medical History: Cancer, Chest Pain / Angina, COPD, Eye Disorder, GERD/ Reflux, Hyperlipidemia, Osteoarthritis (OA), Pneumonia, Respiratory Disorder Additional Past Medical History / Comment(s): past thoracic spine fractures T8- T9, possible oseoporosis. End stage COPD , chronic hypoxic and hypercapnic respiratory failure, home O2 at 5-6L/NC and bipap at HS, steroid dependent, bronchitis, 1997 pt states she was told her EKG showed a past [place], cervical cancer with hysterectomy, PUD, carpal tunnel bilaterally, herniated discs C5-C6 and L5-L6, cervical/lumbar spondylosis, RLS, eczema, cataract L eye, tinnitis bilaterally, sinus problems. Last Myocardial Infarction Date:: UNK History of Any Multi-Drug Resistant Organisms: MRSA Date of last positivie culture/infection: 06/18/2015 MDRO Source:: SPUTUM Past Surgical History: Section, Cholecystectomy, Ear Surgery, Hysterectomy, Tubal Ligation Additional Past Surgical History / Comment(s): x 2, EGD, colonoscopy with benign polypectomy, R ear cyst with surgery.. Past Anesthesia/Blood Transfusion Reactions: No Reported Reaction Additional Past Anesthesia/Blood Transfusion Reaction / Comment(s): Pt has never recieved blood. Past Psychological History: Anxiety, Bipolar, Depression Additional Psychological History / Comment(s): Pt resides with her son jessica. She normally performs her own ADLs. She has home O2. She has a nebulizer. She does not drive but her son takes her places. Relates that she is an ongoing tobacco smoker-last smoked one week ago and plans to be quit. She does not have experience. She has no international travels. Pt states she currently has no home care but has used [facility] in the past. Smoking Status: Current some day smoker Past Alcohol Use History: None Reported Additional Past Alcohol Use History / Comment(s): Pt started smoking in 1984. She states she smokes somedays 2 cig per week Past Drug Use History: None Reported Additional Drug Use History / Comment(s): MEDICAL MARIJUANA AND SMOKES DAILY. - Past Family History Father Family Medical History: No Reported History Additional Family Medical History / Comment(s): WAS AN ALCOHOLIC Mother Family Medical History: Cancer Additional Family Medical History / Comment(s): AT AGE 54-BOWEL CANCER Medications and Allergies Home Medications Medication Instructions Recorded Confirmed Type Albuterol Inhaler [Ventolin Hfa 2 puff INHALATION RT-QID PRN 01/03/14 05/21/18 History Inhaler] Omeprazole [PriLOSEC] 40 mg PO BID 01/03/14 05/21/18 History risperiDONE 3 mg PO HS 12/24/14 05/21/18 History traZODone HCL 300 mg PO HS 12/24/14 05/21/18 History Budesonide-Formot 160-4.5 Mcg 2 puff INHALATION RT-BID puff 07/13/16 05/21/18 Rx [Symbicort 160-4.5 Mcg Inhaler] Theophylline 24 Hour [Akhil-24] 200 mg PO BID 07/06/17 05/21/18 History Fluticasone Nasal [place] [Flonase 2 spray EA NOSTRIL DAILY 12/21/17 05/21/18 History Nasal [place]] Pregabalin [Lyrica] 150 mg PO BID 12/21/17 05/21/18 History Grant/D3/Mag11/Zinc/[place]/Gianni/Bor 1 tab PO DAILY 03/13/18 05/21/18 History [Caltrate 600+D Plus Tablet] HYDROcodone/APAP 5-325MG [[place] 1 tab PO BID 03/13/18 05/21/18 History 5-325] Umeclidinium [place] [Incruse 1 puff INHALATION RT-DAILY 03/13/18 05/21/18 History Ellipta] Ipratropium [place] [Atrovent Hfa] 2 puff INHALATION RT-QID PRN 03/25/18 History Multivitamins, Thera [Multivitamin 1 tab PO DAILY@1200 03/25/18 05/21/18 History (formulary)] buPROPion HCL [Wellbutrin SR] 150 mg PO HS 03/25/18 05/21/18 History hydrALAZINE HCL [Apresoline] 25 mg PO TID PRN 03/25/18 05/21/18 History Ipratropium-Albuterol Nebulize 3 ml INHALATION RT-QID #0 neb 04/03/18 05/21/18 Rx [Duoneb 0.5 mg-3 mg/3 ml Soln] Metoprolol Tartrate [Lopressor] 12.5 mg PO BID #60 tab 04/03/18 05/21/18 Rx Verapamil Sr [Isoptin Sr] 240 mg PO DAILY #30 tablet.er 04/03/18 05/21/18 Rx predniSONE 20 mg PO DAILY #0 04/03/18 05/21/18 Rx Ibuprofen [Motrin] 800 mg PO Q6H PRN 05/21/18 05/21/18 History Allergies Allergy/AdvReac Type Severity Reaction Status Date / Time aripiprazole [From Abilify] Allergy Rash/Hives Verified 05/21/18 11:45 cephalexin [From Keflex] Allergy Unknown Verified 05/21/18 11:45 honey Allergy Rash/Hives Verified 05/21/18 11:45 methadone [Methadone] Allergy Itching Verified 05/21/18 11:45 naproxen Allergy Rash/Hives Verified 05/21/18 11:45 sulfamethoxazole Allergy Rash/Hives Verified 05/21/18 11:45 [From Bactrim] tetracycline [Tetracycline] Allergy Rash/Hives Verified 05/21/18 11:45 trimethoprim [From Bactrim] Allergy Rash/Hives Verified 05/21/18 11:45 adhesive tape AdvReac Rash/Hives Verified 05/21/18 11:45 tramadol HCl [From Ultram] AdvReac SEIZURES Verified 05/21/18 11:45 tromethamine AdvReac Nausea & Verified 05/21/18 11:45 Vomiting Physical Exam Vitals: Vital Signs Temp Pulse Pulse Resp BP BP Pulse Ox 05/21/18 11:44 111 H 20 05/21/18 11:34 110 H 20 05/21/18 08:00 118 H 32 H 05/21/18 07:58 118 H 32 H 153/87 93 L 05/21/18 07:35 109 H 20 05/21/18 07:23 104 H 22 97 05/21/18 05:14 20 05/21/18 04:00 90 20 144/85 97 05/21/18 03:49 112 H 05/21/18 03:37 97.1 F L 114 H 114 H 20 192/88 93 L 05/21/18 03:00 110 H 20 134/88 98 05/21/18 02:00 118 H 24 135/95 97 05/21/18 01:36 118 H 22 152/87 96 05/21/18 01:12 124 H 05/21/18 01:04 123 H 05/21/18 00:23 98.4 F 135 H 40 H 157/94 81 L Intake and Output 05/20/18 05/21/18 05/21/18 22:59 06:59 14:59 Output Total 500 Balance -500 Output: Urine 500 Other: Voiding Method Toilet Toilet # Voids 2 1 Weight 51 kg GENERAL EXAM: Alert, cachectic 47-year-old white female, appears older than stated age currently on BiPAP support, tachypnea, mild to moderate amount of respiratory distress, using accessory muscles of breathing. HEAD: Normocephalic/atraumatic. EYES: Normal reaction of pupils, equal size. Conjunctiva pink, sclera white. NOSE: Clear with pink turbinates. THROAT: No erythema or exudates. NECK: No masses, no JVD, no thyroid enlargement, no adenopathy. CHEST: No chest wall deformity. Symmetrical expansion. LUNGS: Decreased breath sounds, with diffuse wheezes CVS: Regular rate and rhythm, normal S1 and S2, no gallops, no murmurs, no rubs ABDOMEN: Soft, nontender. No hepatosplenomegaly, normal bowel sounds, no guarding or rigidity. EXTREMITIES: No clubbing, no edema, no cyanosis, 2+ pulses and upper and lower extremities. MUSCULOSKELETAL: Muscle strength and tone normal. SPINE: No scoliosis or deformity SKIN: No rashes CENTRAL NERVOUS SYSTEM: Alert and oriented -3. No focal deficits, tone is normal in all 4 extremities. PSYCHIATRIC: Alert and oriented -3. Appropriate affect. Intact judgment and insight. Results - Laboratory Findings CBC and BMP: 05/21/18 00:35 05/21/18 00:35 PT/INR, D-dimer PT 9.3 sec (9.0-12.0) 05/21/18 00:35 INR 0.9 (<1.2) 05/21/18 00:35 D-Dimer 0.20 mg/L FEU (<0.60) 05/21/18 00:35 Abnormal lab findings: Abnormal Labs 05/21/18 05/21/18 05/21/18 00:35 00:35 00:35 WBC 13.3 H MCH 24.2 L MCHC 30.0 L RDW 17.0 H Plt Count 564 H Neutrophils # 10.4 H APTT 20.8 L Carbon Dioxide 34 H BUN 22 H Creatinine 0.46 L Glucose 127 H - Diagnostic Findings Chest x-ray: report reviewed, image reviewed Additional studies: EKG reviewed Assessment and Plan Plan: Assessment #1. Acute on chronic hypoxemic respiratory failure secondary to acute exacerbation of chronic obstructive pulmonary disease. Chest x-ray was reviewed , and showed no acute cardiopulmonary process #2. Chronic hypercapnic respiratory failure secondary to advanced COPD, patient has AVAPS ventilator at home #3. Chronic and ongoing nicotine dependence, down to 2 cigarettes a day #4. Recurrent hospitalization for respiratory complications did to COPD #5. Coronary artery disease and previous myocardial infarction #6. Previous episodes of pneumonia #7. Severe cachexia and debility Plan: We'll switch to oral prednisone to IV Solu-Medrol 60 mg every 6 hours, continue nebulized bronchodilators, Pulmicort and Perforomist, empiric antibiotics. BiPAP support at the current settings. Smoking cessation was encouraged. We' ll continue to follow. I performed a history & physical examination of the patient and discussed their management with my nurse practitioner, Elida Agarwal. I reviewed the nurse practitioner's note and agree with the documented findings and plan of care. Lung sounds are positive for diffuse wheezes throughout the lung cagle. The findings and the impression was discussed with the patient. I attest to the documentation by the nurse practitioner. Time with Patient: Greater than 30
[2018-05-21] MEDS: methylPREDNISolone SOD SUCCI 125 MG/2 ML VIAL IV SCH ×3 (12:32→23:02)
--- NOTE | 2018-05-21 15:48 | P.HPIM ---
History of Present Illness H&P Date: 05/21/18 Chief Complaint: Shortness of breath Mrs. Shaw is a 47-year-old female who is Dr. Italo John patient with a past medical history of asthma, coronary artery disease, end-stage COPD oxygen dependent, GERD, hyperlipidemia, osteoarthritis, thoracic spine fracture T8-T9 coming in with a chief complaint of difficulty in breathing for 2 days associated with worsening cough and yellowish sputum. Patient also complains of central chest pain worse with cough. Patient is still continuing to smoke and doesn't specify. She follows with Dr. Mendez in for her end-stage COPD. She has multiple admissions for the same complaints. Patient has a chest x-ray showing no acute cardiopulmonary process. She was placed on BiPAP support and admitted to the hospital for further management. Patient's blood work shows increased CO2 which indicates chronic hypercapnic respiratory failure. Currently the patient is on BiPAP and still feeling short of breath. She tried to take her BiPAP off but could not hold a conversation, and so placed on BiPAP again. Review of systems-could not be done as the patient is on BiPAP Past Medical History Past Medical History: Cancer, Chest Pain / Angina, COPD, Eye Disorder, GERD/ Reflux, Hyperlipidemia, Osteoarthritis (OA), Pneumonia, Respiratory Disorder Additional Past Medical History / Comment(s): past thoracic spine fractures T8- T9, possible oseoporosis. End stage COPD , chronic hypoxic and hypercapnic respiratory failure, home O2 at 5-6L/NC and bipap at HS, steroid dependent, bronchitis, 1997 pt states she was told her EKG showed a past [place], cervical cancer with hysterectomy, PUD, carpal tunnel bilaterally, herniated discs C5-C6 and L5-L6, cervical/lumbar spondylosis, RLS, eczema, cataract L eye, tinnitis bilaterally, sinus problems. Last Myocardial Infarction Date:: UNK History of Any Multi-Drug Resistant Organisms: MRSA Date of last positivie culture/infection: 06/18/2015 MDRO Source:: SPUTUM Past Surgical History: Section, Cholecystectomy, Ear Surgery, Hysterectomy, Tubal Ligation Additional Past Surgical History / Comment(s): x 2, EGD, colonoscopy with benign polypectomy, R ear cyst with surgery.. Past Anesthesia/Blood Transfusion Reactions: No Reported Reaction Additional Past Anesthesia/Blood Transfusion Reaction / Comment(s): Pt has never recieved blood. Past Psychological History: Anxiety, Bipolar, Depression Additional Psychological History / Comment(s): Pt resides with her son jessica. She normally performs her own ADLs. She has home O2. She has a nebulizer. She does not drive but her son takes her places. Relates that she is an ongoing tobacco smoker-last smoked one week ago and plans to be quit. She does not have experience. She has no international travels. Pt states she currently has no home care but has used [facility] in the past. Smoking Status: Current some day smoker Past Alcohol Use History: None Reported Additional Past Alcohol Use History / Comment(s): Pt started smoking in 1984. She states she smokes somedays 2 cig per week Past Drug Use History: None Reported Additional Drug Use History / Comment(s): MEDICAL MARIJUANA AND SMOKES DAILY. - Past Family History Father Family Medical History: No Reported History Additional Family Medical History / Comment(s): WAS AN ALCOHOLIC Mother Family Medical History: Cancer Additional Family Medical History / Comment(s): AT AGE 54-BOWEL CANCER Medications and Allergies Home Medications Medication Instructions Recorded Confirmed Type Albuterol Inhaler [Ventolin Hfa 2 puff INHALATION RT-QID PRN 01/03/14 05/21/18 History Inhaler] Omeprazole [PriLOSEC] 40 mg PO BID 01/03/14 05/21/18 History risperiDONE 3 mg PO HS 12/24/14 05/21/18 History traZODone HCL 300 mg PO HS 12/24/14 05/21/18 History Budesonide-Formot 160-4.5 Mcg 2 puff INHALATION RT-BID puff 07/13/16 05/21/18 Rx [Symbicort 160-4.5 Mcg Inhaler] Theophylline 24 Hour [Akhil-24] 200 mg PO BID 07/06/17 05/21/18 History Fluticasone Nasal [place] [Flonase 2 spray EA NOSTRIL DAILY 12/21/17 05/21/18 History Nasal [place]] Pregabalin [Lyrica] 150 mg PO BID 12/21/17 05/21/18 History Grant/D3/Mag11/Zinc/[place]/Gianni/Bor 1 tab PO DAILY 03/13/18 05/21/18 History [Caltrate 600+D Plus Tablet] HYDROcodone/APAP 5-325MG [[place] 1 tab PO BID 03/13/18 05/21/18 History 5-325] Umeclidinium [place] [Incruse 1 puff INHALATION RT-DAILY 03/13/18 05/21/18 History Ellipta] Ipratropium [place] [Atrovent Hfa] 2 puff INHALATION RT-QID PRN 03/25/18 History Multivitamins, Thera [Multivitamin 1 tab PO DAILY@1200 03/25/18 05/21/18 History (formulary)] buPROPion HCL [Wellbutrin SR] 150 mg PO HS 03/25/18 05/21/18 History hydrALAZINE HCL [Apresoline] 25 mg PO TID PRN 03/25/18 05/21/18 History Ipratropium-Albuterol Nebulize 3 ml INHALATION RT-QID #0 neb 04/03/18 05/21/18 Rx [Duoneb 0.5 mg-3 mg/3 ml Soln] Metoprolol Tartrate [Lopressor] 12.5 mg PO BID #60 tab 04/03/18 05/21/18 Rx Verapamil Sr [Isoptin Sr] 240 mg PO DAILY #30 tablet.er 04/03/18 05/21/18 Rx predniSONE 20 mg PO DAILY #0 04/03/18 05/21/18 Rx Ibuprofen [Motrin] 800 mg PO Q6H PRN 05/21/18 05/21/18 History Allergies Allergy/AdvReac Type Severity Reaction Status Date / Time aripiprazole [From Abilify] Allergy Rash/Hives Verified 05/21/18 11:45 cephalexin [From Keflex] Allergy Unknown Verified 05/21/18 11:45 honey Allergy Rash/Hives Verified 05/21/18 11:45 methadone [Methadone] Allergy Itching Verified 05/21/18 11:45 naproxen Allergy Rash/Hives Verified 05/21/18 11:45 sulfamethoxazole Allergy Rash/Hives Verified 05/21/18 11:45 [From Bactrim] tetracycline [Tetracycline] Allergy Rash/Hives Verified 05/21/18 11:45 trimethoprim [From Bactrim] Allergy Rash/Hives Verified 05/21/18 11:45 adhesive tape AdvReac Rash/Hives Verified 05/21/18 11:45 tramadol HCl [From Ultram] AdvReac SEIZURES Verified 05/21/18 11:45 tromethamine AdvReac Nausea & Verified 05/21/18 11:45 Vomiting Physical Exam Vitals: Vital Signs Temp Pulse Pulse Resp BP BP Pulse Ox 05/21/18 12:00 83 34 H 144/83 98 05/21/18 11:44 111 H 20 05/21/18 11:34 110 H 20 05/21/18 08:00 118 H 32 H 05/21/18 07:58 118 H 32 H 153/87 93 L 05/21/18 07:35 109 H 20 05/21/18 07:23 104 H 22 97 05/21/18 05:14 20 05/21/18 04:00 90 20 144/85 97 05/21/18 03:49 112 H 05/21/18 03:37 97.1 F L 114 H 114 H 20 192/88 93 L 05/21/18 03:00 110 H 20 134/88 98 05/21/18 02:00 118 H 24 135/95 97 05/21/18 01:36 118 H 22 152/87 96 05/21/18 01:12 124 H 05/21/18 01:04 123 H 05/21/18 00:23 98.4 F 135 H 40 H 157/94 81 L Intake and Output 05/21/18 05/21/18 05/21/18 06:59 14:59 22:59 Intake Total 120 Output Total 500 Balance -500 120 Intake: Oral 120 Output: Urine 500 Other: Voiding Method Toilet Toilet # Voids 2 0 Weight 51 kg GENERAL: Patient appears to be in respiratory distress, using her accessory muscles to breathe when the BiPAP is off. HEENT: Pupils are round and equally reacting to light. EOMI. No scleral icterus. No conjunctival pallor. Normocephalic, atraumatic. No pharyngeal erythema. No thyromegaly. Patient has temporal wasting. CARDIOVASCULAR: S1 and S2 present. No murmurs, rubs, or gallops. -PULMONARY: Decreased breath sounds in all lung cagle. Bilateral wheezing. ABDOMEN: Soft, nontender, nondistended, normoactive bowel sounds. No palpable organomegaly. MUSCULOSKELETAL: No joint swelling or deformity. EXTREMITIES: No cyanosis, clubbing, or pedal edema. NEUROLOGICAL: Gross neurological examination did not reveal any focal deficits. SKIN: No rashes. Results CBC & Chem 7: 05/21/18 00:35 05/21/18 00:35 Labs: Abnormal Lab Results - Last 24 Hours (Table) 05/21/18 05/21/18 05/21/18 Range/Units 00:35 00:35 00:35 WBC 13.3 H (3.8-10.6) k/uL MCH 24.2 L (25.0-35.0) pg MCHC 30.0 L (31.0-37.0) g/dL RDW 17.0 H (11.5-15.5) % Plt Count 564 H (150-450) k/uL Neutrophils # 10.4 H (1.3-7.7) k/uL APTT 20.8 L (22.0-30.0) sec Carbon Dioxide 34 H (22-30) mmol/L BUN 22 H (7-17) mg/dL Creatinine 0.46 L (0.52-1.04) mg/dL Glucose 127 H (74-99) mg/dL Thrombosis Risk Factor Assmnt - Choose All That Apply Any of the Below Risk Factors Present?: Yes Each Factor Represents 1 point: Age 41-60 years, Serious lung disease incl. pneumonia (< 1month) Other Risk Factors: No Other congenital or acquired thrombophilia - If yes, enter type in comment: No Thrombosis Risk Factor Assessment Total Risk Factor Score: 2 Thrombosis Risk Factor Assessment Level: Low Risk Assessment and Plan Assessment: ASSESSMENT Acute hypoxic/hypercapnic respiratory failure End-stage COPD oxygen dependent History of coronary artery disease with previous NV Recurrent hospitalizations for respiratory complications due to COPD Nicotine dependence Cachexia Plan: Continue with BiPAP. Patient is getting IV steroids breathing treatments and antibiotics in the form of levofloxacin is to be continued. Resume all her home medications. Overall prognosis is very poor. Further recommendations depending on the progress of the patient.
[2018-05-21] MEDS: IPRATROPIUM-ALBUTEROL 3 ML NEB INHALATION SCH ×3 (16:00→23:31)
[2018-05-21] MEDS ORDERED: IPRATROPIUM 0.5 MG/2.5 ML NEBU INHALATION SCH (16:00)
[2018-05-21] MEDS: HYDROcodone/APAP 5-325MG 1 EACH TAB PO PRN ×2 (17:12→23:00)
[2018-05-21] MEDS: BUDESONIDE 1 MG/2 ML NEBU INHALATION SCH (19:13)
[2018-05-21] MEDS: FORMOTEROL FUMARATE 20 MCG/2 ML NEBU INHALATION SCH (19:13)
[2018-05-21] MEDS: risperiDONE 1 MG TAB PO SCH (19:46)
[2018-05-21] MEDS: traZODone HCL 100 MG TAB PO SCH (19:46)
[2018-05-21] MEDS: buPROPion SR 150 MG TABLET.ER PO SCH (19:47)
[2018-05-21 21:01] LABS: Glucose,Whole Blood 216 mg/dL (75-99)
[2018-05-21] MEDS: INSULIN ASPART 100 UNIT/ML 1 ML 10 ML VIAL SQ SCH (21:17)
[2018-05-21] MEDS: ALPRAZolam 0.25 MG TAB PO PRN (23:00)
[2018-05-22] MEDS: SODIUM CHLORIDE 0.9% 1,000 ML IV SCH ×4 (00:11→23:16)
[2018-05-22] MEDS: IPRATROPIUM-ALBUTEROL 3 ML NEB INHALATION SCH ×6 (02:47→23:22)
[2018-05-22] MEDS: HYDROcodone/APAP 5-325MG 1 EACH TAB PO PRN ×3 (05:11→17:43)
[2018-05-22] MEDS: IPRATROPIUM-ALBUTEROL 3 ML NEB INHALATION PRN ×2 (06:04→13:20)
[2018-05-22 06:13] LABS: Glucose,Whole Blood 159 mg/dL (75-99)
[2018-05-22] MEDS: INSULIN ASPART 100 UNIT/ML 1 ML 10 ML VIAL SQ SCH ×4 (06:29→20:47)
[2018-05-22] MEDS: methylPREDNISolone SOD SUCCI 125 MG/2 ML VIAL IV SCH ×4 (06:29→23:11)
[2018-05-22] MEDS: PANTOPRAZOLE 40 MG TABLET PO SCH (06:29)
[2018-05-22] MEDS: ALPRAZolam 0.25 MG TAB PO PRN (06:31)
[2018-05-22 07:33] LABS: Anisocytosis Slight; Basophils % (A) 0 %; Eosinophils % (A) 0 %; HCT 38.3 % (34.0-46.0); HGB 11.4 gm/dL (11.4-16.0); Hypochromasia Marked; Lymphocytes # (A) 0.5 k/uL (1.0-4.8); Lymphocytes % (A) 5 %; MCH 24.3 pg (25.0-35.0); MCHC 29.6 g/dL (31.0-37.0); MCV 82.1 fL (80.0-100.0); Mean Platelet Volume 6.6; Monocytes # (A) 0.3 k/uL (0-1.0); Monocytes % (A) 3 %; Neutrophils # (A) 8.5 k/uL (1.3-7.7); Neutrophils % (A) 90 %; Platelet Count 476 k/uL (150-450); RBC 4.66 m/uL (3.80-5.40); RDW 16.6 % (11.5-15.5); WBC 9.4 k/uL (3.8-10.6)
[2018-05-22 07:55] LABS: Anion Gap 6 mmol/L; Blood Urea Nitrogen 21 mg/dL (7-17); Calcium 9.5 mg/dL (8.4-10.2); Carbon Dioxide 35 mmol/L (22-30); Chloride 102 mmol/L (98-107); Glucose 146 mg/dL (74-99); Potassium 4.5 mmol/L (3.5-5.1); Sodium 143 mmol/L (137-145)
[2018-05-22] MEDS: BUDESONIDE 1 MG/2 ML NEBU INHALATION SCH ×2 (08:27→19:07)
[2018-05-22] MEDS: FORMOTEROL FUMARATE 20 MCG/2 ML NEBU INHALATION SCH ×2 (08:27→19:07)
[2018-05-22] MEDS: PREGABALIN 75 MG CAP PO SCH ×2 (08:58→20:47)
[2018-05-22] MEDS: VERAPAMIL SR 240 MG TABLET.ER PO SCH (08:58)
[2018-05-22] MEDS: METOPROLOL TARTRATE 12.5 MG TAB PO SCH ×2 (08:58→20:47)
[2018-05-22] MEDS: THEOPHYLLINE 24 HOUR 200 MG CAP.ER.24H PO SCH ×2 (08:58→20:47)
[2018-05-22] MEDS: LEVOFLOXACIN 750MG-D5W PMX 750 MG in DEXTROSE/WATER 1 150ML.BAG IVPB SCH (09:02)
[2018-05-22 11:23] LABS: Glucose,Whole Blood 146 mg/dL (75-99)
--- NOTE | 2018-05-22 11:40 | P.PN ---
Subjective The patient sitting upright in bed noted to have tight wheeze. Patient complains of headache back pain pain with inspiration. Objective - Vital Signs Vital signs: Vital Signs Temp 97.2 F L 05/22/18 08:00 Pulse 104 H 05/22/18 11:09 Resp 28 H 05/22/18 08:00 BP 143/90 05/22/18 08:00 Pulse Ox 98 05/22/18 08:00 Intake & Output 05/21/18 05/22/18 05/22/18 18:59 06:59 18:59 Intake Total 120 1950 250 Balance 120 1950 250 Weight 50 kg Intake: IV 20 10 Invasive Line 1 20 10 Intake, IV Titration 1450 Amount Sodium Chloride 0.9% 1, 1450 000 ml @ 100 mls/hr IV . Q10H [place] Rx#:[id number] Oral 120 480 240 Other: Voiding Method Toilet Toilet # Voids 0 2 - Constitutional General appearance: Present: mild distress, thin - EENT Eyes: Present: PERRLA Ears: bilateral: normal - Neck Neck: Present: normal ROM - Respiratory Respiratory: bilateral: diminished, wheezing - Cardiovascular Rhythm: regular - Gastrointestinal General gastrointestinal: Present: soft - Integumentary Integumentary: Present: normal - Neurologic Neurologic: Present: CNII-XII intact - Musculoskeletal Musculoskeletal: Present: generalized weakness - Psychiatric Psychiatric: Present: A&O x's 3, appropriate affect, intact judgment & insight - Labs CBC & Chem 7: 05/22/18 06:02 05/22/18 06:02 Labs: Abnormal Lab Results - Last 24 Hours (Table) 05/21/18 05/22/18 05/22/18 Range/Units 21:00 06:02 06:02 MCH 24.3 L (25.0-35.0) pg MCHC 29.6 L (31.0-37.0) g/dL RDW 16.6 H (11.5-15.5) % Plt Count 476 H (150-450) k/uL Neutrophils # 8.5 H (1.3-7.7) k/uL Lymphocytes # 0.5 L (1.0-4.8) k/uL Carbon Dioxide 35 H (22-30) mmol/L BUN 21 H (7-17) mg/dL Creatinine 0.43 L (0.52-1.04) mg/dL Glucose 146 H (74-99) mg/dL POC Glucose (mg/dL) 216 H (75-99) mg/dL 05/22/18 05/22/18 Range/Units 06:12 11:17 MCH (25.0-35.0) pg MCHC (31.0-37.0) g/dL RDW (11.5-15.5) % Plt Count (150-450) k/uL Neutrophils # (1.3-7.7) k/uL Lymphocytes # (1.0-4.8) k/uL Carbon Dioxide (22-30) mmol/L BUN (7-17) mg/dL Creatinine (0.52-1.04) mg/dL Glucose (74-99) mg/dL POC Glucose (mg/dL) 159 H 146 H (75-99) mg/dL Microbiology - Last 24 Hours (Table) 05/21/18 00:35 Blood Culture - Preliminary Blood No Growth after 24 hours - Imaging and Cardiology Chest x-ray: report reviewed Assessment and Plan Plan: Assessment Acute on chronic hypoxic respiratory failure secondary to acute exacerbation of chronic COPD Chronic hypercapnic respiratory failure secondary to advanced COPD BiPAP at home Chronic and ongoing nicotine dependence Recurrent hospitalization for rest trach complications secondary to COPD Coronary disease with previous NH Severe cachexia and debility secondary to severe COPD GERD Osteoarthritis with narcotic dependence Plan Continue consultation with pulmonology Patient on IV steroids bronchodilators Pulmicort antibiotics BiPAP
[2018-05-22] MEDS: HYDROmorphone 1 MG/ML 1 ML SYRINGE IVP PRN ×2 (14:36→21:57)
[2018-05-22 16:44] LABS: Glucose,Whole Blood 161 mg/dL (75-99)
--- NOTE | 2018-05-22 17:13 | P.PN ---
Subjective Progress Note Date: 05/22/18 Principal diagnosis: Acute on chronic hypercapnic respiratory failure secondary to acute exacerbation of chronic obstructive pulmonary disease. This is a 47-year-old white female patient of Dr. John, who also follows with Dr. Molina in the pulmonary office for her end-stage COPD, with chronic actinic respiratory failure, prednisone dependent, on AVAPS ventilator for chronic hypercapnic respiratory failure. Patient has had multiple hospitalizations for recurrent pulmonary complications related to COPD. Unfortunately she continues to smoke, she states she is currently down to 2 cigarettes a day. She is on a combination of Symbicort, increased, theophylline , and nebulized treatments around the clock. She is on AVAPS at home to support her breathing based on her recurrent hospitalizations and COPD exacerbations. Today she presented with complaints of worsening shortness of breath, cough, with production of yellow sputum. Chest x-ray was completed and it showed no acute cardiopulmonary process. This was reviewed by Dr. Lino. She was placed on BiPAP support, with pressures 12 over 4, and 50%. Blood work showed WBC of 13.3, hemoglobin of 12.0, d-dimer was within normal limits, electrolytes were essentially unremarkable, the CO2 of 34, indicating chronic hypercapnic respiratory failure, BUN is 22, creatinine 0.46. Cardiac enzymes, proBNP, and LFTs were all within normal limits. Patient has been afebrile, she is slightly tachycardic with a heart rate in the low 100s, on presentation she was hypoxemic with a pulse ox of 81%. Her pulse ox right now is 93% on 50% FiO2. He remains tachypneic, with a respiratory rate in the 20s, and at times in the low 30s. Lung sounds are positive for breast sounds, and diffuse wheezes. Patient is awake and alert, she is very dyspneic with conversation, and is not able to provide lengthy answers. Patient was started on steroids, empiric antibiotics in the form of Levaquin, nebulized bronchodilators, and Symbicort. On 05/22/2018 patient seen in follow-up on selective care unit. She remains on BiPAP support, most of the time, she is able to show trials of nasal cannula for meals. For now she remains largely BiPAP dependent. Bronchospastic, and wheezy, not bringing up much sputum right now. Afebrile, vital signs are stable. IPAP settings of 12 and 4 and 50%. Denies any fever or chills. Today' s blood work was reviewed, the PVCs 9.4, he is 11.4, electrolytes are unremarkable, renal profile is stable, B1 is 21, creatinine 0.43. Continue current medical treatment, IV steroids, nebulized bronchodilators, Levaquin. Objective - Vital Signs Vital signs: Vital Signs Temp 97.4 F L 05/22/18 12:00 Pulse 74 05/22/18 16:00 Resp 28 H 05/22/18 16:00 BP 123/77 05/22/18 16:00 Pulse Ox 100 05/22/18 16:00 Intake & Output 05/21/18 05/22/18 05/22/18 18:59 06:59 18:59 Intake Total 120 1950 870 Balance 120 1950 870 Weight 50 kg Intake: IV 20 30 Invasive Line 1 20 30 Intake, IV Titration 1450 600 Amount Levofloxacin 750Mg-D5w 150 Pmx 750 mg In Dextrose/ Water 1 150ml.bag @ 100 mls/hr IVPB DAILY [facility] Rx# :[id number] Sodium Chloride 0.9% 1, 1450 450 000 ml @ 100 mls/hr IV . Q10H [facility] Rx#:[id number] Oral 120 480 240 Other: Voiding Method Toilet Toilet # Voids 0 2 2 - Exam GENERAL EXAM: Alert, cachectic 47-year-old white female, appears older than stated age currently on BiPAP support, tachypnea, mild to moderate amount of respiratory distress, using accessory muscles of breathing. HEAD: Normocephalic/atraumatic. EYES: Normal reaction of pupils, equal size. Conjunctiva pink, sclera white. NOSE: Clear with pink turbinates. THROAT: No erythema or exudates. NECK: No masses, no JVD, no thyroid enlargement, no adenopathy. CHEST: No chest wall deformity. Symmetrical expansion. LUNGS: Decreased breath sounds, with diffuse wheezes CVS: Regular rate and rhythm, normal S1 and S2, no gallops, no murmurs, no rubs ABDOMEN: Soft, nontender. No hepatosplenomegaly, normal bowel sounds, no guarding or rigidity. EXTREMITIES: No clubbing, no edema, no cyanosis, 2+ pulses and upper and lower extremities. MUSCULOSKELETAL: Muscle strength and tone normal. SPINE: No scoliosis or deformity SKIN: No rashes CENTRAL NERVOUS SYSTEM: Alert and oriented -3. No focal deficits, tone is normal in all 4 extremities. PSYCHIATRIC: Alert and oriented -3. Appropriate affect. Intact judgment and insight. - Labs CBC & Chem 7: 05/22/18 06:02 05/22/18 06:02 Labs: Abnormal Lab Results - Last 24 Hours (Table) 05/21/18 05/22/18 05/22/18 Range/Units 21:00 06:02 06:02 MCH 24.3 L (25.0-35.0) pg MCHC 29.6 L (31.0-37.0) g/dL RDW 16.6 H (11.5-15.5) % Plt Count 476 H (150-450) k/uL Neutrophils # 8.5 H (1.3-7.7) k/uL Lymphocytes # 0.5 L (1.0-4.8) k/uL Carbon Dioxide 35 H (22-30) mmol/L BUN 21 H (7-17) mg/dL Creatinine 0.43 L (0.52-1.04) mg/dL Glucose 146 H (74-99) mg/dL POC Glucose (mg/dL) 216 H (75-99) mg/dL 05/22/18 05/22/18 05/22/18 Range/Units 06:12 11:17 16:39 MCH (25.0-35.0) pg MCHC (31.0-37.0) g/dL RDW (11.5-15.5) % Plt Count (150-450) k/uL Neutrophils # (1.3-7.7) k/uL Lymphocytes # (1.0-4.8) k/uL Carbon Dioxide (22-30) mmol/L BUN (7-17) mg/dL Creatinine (0.52-1.04) mg/dL Glucose (74-99) mg/dL POC Glucose (mg/dL) 159 H 146 H 161 H (75-99) mg/dL Microbiology - Last 24 Hours (Table) 05/21/18 00:35 Blood Culture - Preliminary Blood No Growth after 24 hours Assessment and Plan Plan: Assessment #1. Acute on chronic hypoxemic respiratory failure secondary to acute exacerbation of chronic obstructive pulmonary disease. Chest x-ray was reviewed , and showed no acute cardiopulmonary process #2. Chronic hypercapnic respiratory failure secondary to advanced COPD, patient has AVAPS ventilator at home #3. Chronic and ongoing nicotine dependence, down to 2 cigarettes a day #4. Recurrent hospitalization for respiratory complications did to COPD #5. Coronary artery disease and previous myocardial infarction #6. Previous episodes of pneumonia #7. Severe cachexia and debility Plan: Continue current medical treatment, continue IV steroids at 60 mg every 6 hours , empiric antibiotics and nebulized bronchodilators. BiPAP support. she remains quite bronchospastic, and dyspneic. Continue to follow I performed a history & physical examination of the patient and discussed their management with my nurse practitioner, Elida Agarwal. I reviewed the nurse practitioner's note and agree with the documented findings and plan of care. Lung sounds are positive for diffuse wheezes throughout the lung cagle. The findings and the impression was discussed with the patient. I attest to the documentation by the nurse practitioner. Time with Patient: Less than 30
[2018-05-22 20:41] LABS: Glucose,Whole Blood 197 mg/dL (75-99)
[2018-05-22] MEDS: buPROPion SR 150 MG TABLET.ER PO SCH (20:47)
[2018-05-22] MEDS: risperiDONE 1 MG TAB PO SCH (20:47)
[2018-05-22] MEDS: traZODone HCL 100 MG TAB PO SCH (20:48)
[2018-05-22] MEDS: guaiFENesin-DM 100-10MG/5ML 10 ML CUP PO PRN (23:12)
[2018-05-23] MEDS: HYDROmorphone 1 MG/ML 1 ML SYRINGE IVP PRN ×4 (03:02→22:08)
[2018-05-23] MEDS: IPRATROPIUM-ALBUTEROL 3 ML NEB INHALATION SCH ×5 (03:21→17:52)
[2018-05-23 05:55] LABS: Glucose,Whole Blood 151 mg/dL (75-99)
[2018-05-23] MEDS: methylPREDNISolone SOD SUCCI 125 MG/2 ML VIAL IV SCH ×4 (06:07→23:20)
[2018-05-23] MEDS: PANTOPRAZOLE 40 MG TABLET PO SCH (06:08)
[2018-05-23] MEDS: HYDROcodone/APAP 5-325MG 1 EACH TAB PO PRN ×3 (06:08→18:25)
[2018-05-23] MEDS: INSULIN ASPART 100 UNIT/ML 1 ML 10 ML VIAL SQ SCH ×4 (06:10→20:23)
[2018-05-23] MEDS: FORMOTEROL FUMARATE 20 MCG/2 ML NEBU INHALATION SCH ×2 (08:19→17:52)
[2018-05-23] MEDS: BUDESONIDE 1 MG/2 ML NEBU INHALATION SCH ×2 (08:20→17:52)
[2018-05-23] MEDS: VERAPAMIL SR 240 MG TABLET.ER PO SCH (08:58)
[2018-05-23] MEDS: METOPROLOL TARTRATE 12.5 MG TAB PO SCH ×2 (08:58→20:23)
[2018-05-23] MEDS: PREGABALIN 75 MG CAP PO SCH ×2 (08:58→20:23)
[2018-05-23] MEDS: THEOPHYLLINE 24 HOUR 200 MG CAP.ER.24H PO SCH ×2 (08:59→20:24)
[2018-05-23] MEDS: LEVOFLOXACIN 750MG-D5W PMX 750 MG in DEXTROSE/WATER 1 150ML.BAG IVPB SCH (09:00)
[2018-05-23 11:05] LABS: Glucose,Whole Blood 178 mg/dL (75-99)
--- NOTE | 2018-05-23 11:52 | P.PN ---
Subjective Patient resting in bed continues on BiPAP. States some improvement Objective - Vital Signs Vital signs: Vital Signs Temp 97.1 F L 05/23/18 07:53 Pulse 89 05/23/18 11:35 Resp 21 05/23/18 11:35 BP 137/102 05/23/18 07:53 Pulse Ox 95 05/23/18 07:53 Intake & Output 05/22/18 05/23/18 05/23/18 18:59 06:59 18:59 Intake Total 870 100 480 Output Total 800 Balance 870 -700 480 Weight 51.2 kg Intake: IV 30 Invasive Line 1 30 Intake, IV Titration 600 Amount Levofloxacin 750Mg-D5w 150 Pmx 750 mg In Dextrose/ Water 1 150ml.bag @ 100 mls/hr IVPB DAILY [facility] Rx# :[id number] Sodium Chloride 0.9% 1, 450 000 ml @ 100 mls/hr IV . Q10H [facility] Rx#:[id number] Oral 240 100 480 Output: Urine 800 Other: Voiding Method Bedside Commode # Voids 2 1 - Constitutional General appearance: Present: mild distress, thin - EENT Eyes: Present: PERRLA Ears: right: bullous, bilateral: normal - Neck Neck: Present: normal ROM - Respiratory Respiratory: bilateral: diminished - Cardiovascular Rhythm: regular - Gastrointestinal General gastrointestinal: Present: soft - Integumentary Integumentary: Present: normal - Neurologic Neurologic: Present: CNII-XII intact - Musculoskeletal Musculoskeletal: Present: generalized weakness - Psychiatric Psychiatric: Present: A&O x's 3, appropriate affect, intact judgment & insight - Labs CBC & Chem 7: 05/22/18 06:02 05/22/18 06:02 Labs: Abnormal Lab Results - Last 24 Hours (Table) 05/22/18 05/22/18 05/23/18 Range/Units 16:39 20:40 05:54 POC Glucose (mg/dL) 161 H 197 H 151 H (75-99) mg/dL 05/23/18 Range/Units 11:02 POC Glucose (mg/dL) 178 H (75-99) mg/dL Microbiology - Last 24 Hours (Table) 05/21/18 00:35 Blood Culture - Preliminary Blood No Growth after 48 hours Assessment and Plan Plan: Assessment Acute on chronic hypoxic respiratory failure secondary to exacerbation of COPD oxygen dependent home Chronic hypercapnic respiratory failure secondary to advanced COPD Ongoing nicotine dependence Recurrent hospitalization for respiratory complications secondary to COPD History of coronary disease with previous [place] Severe cachexia and debility related to COPD GERD Osteoarthritis with narcotic dependency Plan Continue consultation with the pulmonology continues on IV steroids bronchodilators and empiric antibiotics BiPAP as needed
[2018-05-23] MEDS: ALPRAZolam 0.25 MG TAB PO PRN (12:32)
--- NOTE | 2018-05-23 12:35 | CDI ---
Last Revision, July 2017 Documentation Clarification Form Date: 05/23/2018 12:18:44 PM From: Carol AuMEAGHAN, CCDS Admit Date: 05/21/2018 3:10:00 AM Patient Name: Ameena Shaw Visit Number: [id number] Discharge Date: ATTENTION: The Clinical Documentation Specialists (CDI) and [facility] Coding Staff appreciate your assistance in clarifying documentation. Please respond to the clarification below the line at the bottom and electronically sign. The CDI & [facility] Coding staff will review the response and follow-up if needed. Please note: Queries are made part of the Legal Health Record. If you have any questions, please contact the author of this message via ITS. Italo Ceja MD: Per the History & Physical & also the Pulmonary Consultation: "Severe cachexia and debility related to COPD." History/Risk Factors: Advanced COPD, home O2 dependent, Chronic hypercapnic respiratory failure and ongoing nicotine dependence. Clinical Indicators: Presented with SOB, worsening cough & yellowish sputum, chest pain with cough. Labs: Total protein (7.0), Albumin (4.1). Feeding assessment: eating 50-75% meals, tolerating diet. Current BMI: 19.4 Treatment: Albuterol INH, IV Levaquin, IV Ms, IV fl 100, IV Solumedrol, O2 2L nc w/PO 81 - 100% BiPAP. Dietary not consulted. In your professional opinion, can you please clarify if these findings signify one of the following conditions? Mild Protein-Calorie Malnutrition Moderate Protein-Calorie Malnutrition Severe Protein-Calorie Malnutrition Other condition, please specify Unable to determine MTDD
--- NOTE | 2018-05-23 12:58 | P.PN ---
Subjective Progress Note Date: 05/23/18 Principal diagnosis: Acute on chronic hypercapnic respiratory failure secondary to acute exacerbation of chronic obstructive pulmonary disease. This is a 47-year-old white female patient of Dr. John, who also follows with Dr. Molina in the pulmonary office for her end-stage COPD, with chronic actinic respiratory failure, prednisone dependent, on AVAPS ventilator for chronic hypercapnic respiratory failure. Patient has had multiple hospitalizations for recurrent pulmonary complications related to COPD. Unfortunately she continues to smoke, she states she is currently down to 2 cigarettes a day. She is on a combination of Symbicort, increased, theophylline , and nebulized treatments around the clock. She is on AVAPS at home to support her breathing based on her recurrent hospitalizations and COPD exacerbations. Today she presented with complaints of worsening shortness of breath, cough, with production of yellow sputum. Chest x-ray was completed and it showed no acute cardiopulmonary process. This was reviewed by Dr. Lino. She was placed on BiPAP support, with pressures 12 over 4, and 50%. Blood work showed WBC of 13.3, hemoglobin of 12.0, d-dimer was within normal limits, electrolytes were essentially unremarkable, the CO2 of 34, indicating chronic hypercapnic respiratory failure, BUN is 22, creatinine 0.46. Cardiac enzymes, proBNP, and LFTs were all within normal limits. Patient has been afebrile, she is slightly tachycardic with a heart rate in the low 100s, on presentation she was hypoxemic with a pulse ox of 81%. Her pulse ox right now is 93% on 50% FiO2. He remains tachypneic, with a respiratory rate in the 20s, and at times in the low 30s. Lung sounds are positive for breast sounds, and diffuse wheezes. Patient is awake and alert, she is very dyspneic with conversation, and is not able to provide lengthy answers. Patient was started on steroids, empiric antibiotics in the form of Levaquin, nebulized bronchodilators, and Symbicort. On 05/22/2018 patient seen in follow-up on selective care unit. She remains on BiPAP support, most of the time, she is able to show trials of nasal cannula for meals. For now she remains largely BiPAP dependent. Bronchospastic, and wheezy, not bringing up much sputum right now. Afebrile, vital signs are stable. IPAP settings of 12 and 4 and 50%. Denies any fever or chills. Today' s blood work was reviewed, the PVCs 9.4, he is 11.4, electrolytes are unremarkable, renal profile is stable, B1 is 21, creatinine 0.43. Continue current medical treatment, IV steroids, nebulized bronchodilators, Levaquin. On 05/23/2018 patient seen in follow-up on selective care unit. Is able to tolerate short trials on nasal cannula at 6 L/m, but most of the time she remains BiPAP dependent, at pressures 12 over 4, and 50% FiO2. Occasionally she is able to bring up some sputum, lung sounds remain quite bronchospastic, and short of breath with any activity. Patient is getting up to use the bedside commode, and that has been pretty much to extent of her activity. She is afebrile, hemodynamic with stable. Blood cultures are negative, she remains on high-dose steroids 60 mg every 6 hours, theophylline, Levaquin, nebulized bronchodilators, Pulmicort and Perforomist. We'll continue with current treatment. Objective - Vital Signs Vital signs: Vital Signs Temp 97.1 F L 05/23/18 07:53 Pulse 89 05/23/18 11:35 Resp 21 05/23/18 11:35 BP 137/102 05/23/18 07:53 Pulse Ox 95 05/23/18 07:53 Intake & Output 05/22/18 05/23/18 05/23/18 18:59 06:59 18:59 Intake Total 870 100 480 Output Total 800 Balance 870 -700 480 Weight 51.2 kg Intake: IV 30 Invasive Line 1 30 Intake, IV Titration 600 Amount Levofloxacin 750Mg-D5w 150 Pmx 750 mg In Dextrose/ Water 1 150ml.bag @ 100 mls/hr IVPB DAILY [facility] Rx# :[id number] Sodium Chloride 0.9% 1, 450 000 ml @ 100 mls/hr IV . Q10H [facility] Rx#:[id number] Oral 240 100 480 Output: Urine 800 Other: Voiding Method Bedside Commode # Voids 2 1 - Exam GENERAL EXAM: Alert, cachectic 47-year-old white female, appears older than stated age currently on BiPAP support, tachypnea, mild to moderate amount of respiratory distress, using accessory muscles of breathing. HEAD: Normocephalic/atraumatic. EYES: Normal reaction of pupils, equal size. Conjunctiva pink, sclera white. NOSE: Clear with pink turbinates. THROAT: No erythema or exudates. NECK: No masses, no JVD, no thyroid enlargement, no adenopathy. CHEST: No chest wall deformity. Symmetrical expansion. LUNGS: Decreased breath sounds, with diffuse wheezes CVS: Regular rate and rhythm, normal S1 and S2, no gallops, no murmurs, no rubs ABDOMEN: Soft, nontender. No hepatosplenomegaly, normal bowel sounds, no guarding or rigidity. EXTREMITIES: No clubbing, no edema, no cyanosis, 2+ pulses and upper and lower extremities. MUSCULOSKELETAL: Muscle strength and tone normal. SPINE: No scoliosis or deformity SKIN: No rashes CENTRAL NERVOUS SYSTEM: Alert and oriented -3. No focal deficits, tone is normal in all 4 extremities. PSYCHIATRIC: Alert and oriented -3. Appropriate affect. Intact judgment and insight. - Labs CBC & Chem 7: 05/22/18 06:02 05/22/18 06:02 Labs: Abnormal Lab Results - Last 24 Hours (Table) 05/22/18 05/22/18 05/23/18 Range/Units 16:39 20:40 05:54 POC Glucose (mg/dL) 161 H 197 H 151 H (75-99) mg/dL 05/23/18 Range/Units 11:02 POC Glucose (mg/dL) 178 H (75-99) mg/dL Microbiology - Last 24 Hours (Table) 05/21/18 00:35 Blood Culture - Preliminary Blood No Growth after 48 hours Assessment and Plan Plan: Assessment #1. Acute on chronic hypoxemic respiratory failure secondary to acute exacerbation of chronic obstructive pulmonary disease. Chest x-ray was reviewed , and showed no acute cardiopulmonary process #2. Chronic hypercapnic respiratory failure secondary to advanced COPD, patient has AVAPS ventilator at home #3. Chronic and ongoing nicotine dependence, down to 2 cigarettes a day #4. Recurrent hospitalization for respiratory complications did to COPD #5. Coronary artery disease and previous myocardial infarction #6. Previous episodes of pneumonia #7. Severe cachexia and debility Plan: Slow improvement, still remains BiPAP dependent for most of the time. Significantly limited in terms of exercise capacity. Continue current medical treatment, continue IV steroids at 60 mg every 6 hours, empiric antibiotics and nebulized bronchodilators. BiPAP support. she remains quite bronchospastic, and dyspneic. Continue to follow I performed a history & physical examination of the patient and discussed their management with my nurse practitioner, Elida Agarwal. I reviewed the nurse practitioner's note and agree with the documented findings and plan of care. Lung sounds are positive for diffuse wheezes throughout the lung cagle. The findings and the impression was discussed with the patient. I attest to the documentation by the nurse practitioner. Time with Patient: Less than 30
[2018-05-23] MEDS: SODIUM CHLORIDE 0.9% 1,000 ML IV SCH ×2 (15:13→23:21)
[2018-05-23 16:54] LABS: Glucose,Whole Blood 184 mg/dL (75-99)
[2018-05-23 20:17] LABS: Glucose,Whole Blood 195 mg/dL (75-99)
[2018-05-23] MEDS: buPROPion SR 150 MG TABLET.ER PO SCH (20:23)
[2018-05-23] MEDS: risperiDONE 1 MG TAB PO SCH (20:24)
[2018-05-23] MEDS: traZODone HCL 100 MG TAB PO SCH (20:24)
[2018-05-23] MEDS: IPRATROPIUM-ALBUTEROL 3 ML NEB INHALATION PRN (20:44)
[2018-05-24] MEDS: HYDROcodone/APAP 5-325MG 1 EACH TAB PO PRN ×2 (01:06→06:21)
[2018-05-24] MEDS: IPRATROPIUM-ALBUTEROL 3 ML NEB INHALATION SCH ×7 (02:17→23:39)
[2018-05-24] MEDS: HYDROmorphone 1 MG/ML 1 ML SYRINGE IVP PRN ×4 (03:07→20:23)
[2018-05-24 06:00] LABS: Glucose,Whole Blood 178 mg/dL (75-99)
[2018-05-24] MEDS: INSULIN ASPART 100 UNIT/ML 1 ML 10 ML VIAL SQ SCH ×4 (06:09→20:22)
[2018-05-24] MEDS: PANTOPRAZOLE 40 MG TABLET PO SCH (06:09)
[2018-05-24] MEDS: methylPREDNISolone SOD SUCCI 125 MG/2 ML VIAL IV SCH ×4 (06:09→23:14)
[2018-05-24] MEDS: FORMOTEROL FUMARATE 20 MCG/2 ML NEBU INHALATION SCH ×2 (08:05→20:59)
[2018-05-24] MEDS: BUDESONIDE 1 MG/2 ML NEBU INHALATION SCH ×2 (08:05→20:59)
[2018-05-24] MEDS: LEVOFLOXACIN 750 MG TAB PO SCH (09:02)
[2018-05-24] MEDS: THEOPHYLLINE 24 HOUR 200 MG CAP.ER.24H PO SCH ×2 (09:02→20:23)
[2018-05-24] MEDS: VERAPAMIL SR 240 MG TABLET.ER PO SCH (09:03)
[2018-05-24] MEDS: METOPROLOL TARTRATE 12.5 MG TAB PO SCH ×2 (09:03→20:22)
[2018-05-24] MEDS: SODIUM CHLORIDE 0.9% 1,000 ML IV SCH ×3 (09:03→23:14)
[2018-05-24] MEDS: PREGABALIN 75 MG CAP PO SCH ×2 (09:08→20:22)
--- NOTE | 2018-05-24 10:32 | CDI ---
Documentation Clarification Form Date: 2017 CDS: Carol Au, CCS, CCDS Admit Date: 05/21/2018 Patient Name: Ameena Shaw Discharge Date: ATTENTION: The Clinical Documentation Specialists (CDI) and [facility] Coding Staff appreciate your assistance in clarifying documentation. Please respond to the clarification below the line at the bottom and electronically sign. The CDI & [facility] Coding staff will review the response and follow-up if needed. Please note: Queries are made part of the Legal Health Record. If you have any questions, please contact the author of this message via ITS. Dr. Italo John: Per the History & Physical & also the Pulmonary Consultation: "Severe cachexia and debility related to COPD." History/Risk Factors: Advanced COPD, home O2 dependent, Chronic hypercapnic respiratory failure and ongoing nicotine dependence. Clinical Indicators: Presented with SOB, worsening cough & yellowish sputum, chest pain with cough. Labs: Total protein (7.0), Albumin (4.1). Feeding assessment: eating 50-75% meals, tolerating diet. Current BMI: 19.4 Treatment: Albuterol INH, IV Levaquin, IV Ms, IV fl 100, IV Solumedrol, O2 2L nc w/PO 81 - 100% BiPAP. Dietary not consulted. In your professional opinion, can you please clarify if these findings signify one of the following conditions? Mild Protein-Calorie Malnutrition Moderate Protein-Calorie Malnutrition Severe Protein-Calorie Malnutrition Other condition, please specify Unable to determine MTDD
[2018-05-24 11:34] LABS: Glucose,Whole Blood 188 mg/dL (75-99)
--- NOTE | 2018-05-24 12:18 | P.PN ---
Subjective Patient resting in bed states some improvement. Continues on on intermittent BiPAP Objective - Vital Signs Vital signs: Vital Signs Temp 97.9 F 05/24/18 08:00 Pulse 72 05/24/18 12:06 Resp 20 05/24/18 08:00 BP 153/94 05/24/18 08:00 Pulse Ox 99 05/24/18 08:00 Intake & Output 05/23/18 05/24/18 05/24/18 18:59 06:59 18:59 Intake Total 1692 240 Balance 1692 240 Weight 51.8 kg Intake: Intake, IV Titration 750 Amount Levofloxacin 750Mg-D5w 150 Pmx 750 mg In Dextrose/ Water 1 150ml.bag @ 100 mls/hr IVPB DAILY [facility] Rx# :[id number] Sodium Chloride 0.9% 1, 600 000 ml @ 100 mls/hr IV . Q10H [facility] Rx#:[id number] Oral 942 240 Other: Voiding Method Bedside Commode # Voids 3 4 - Constitutional General appearance: Present: mild distress, thin - EENT Eyes: Present: PERRLA Ears: bilateral: normal - Neck Neck: Present: normal ROM - Respiratory Respiratory: bilateral: diminished - Cardiovascular Rhythm: regular - Gastrointestinal General gastrointestinal: Present: soft - Integumentary Integumentary: Present: normal - Neurologic Neurologic: Present: CNII-XII intact - Musculoskeletal Musculoskeletal: Present: generalized weakness - Psychiatric Psychiatric: Present: A&O x's 3, appropriate affect, intact judgment & insight - Labs CBC & Chem 7: 05/22/18 06:02 05/22/18 06:02 Labs: Abnormal Lab Results - Last 24 Hours (Table) 05/23/18 05/23/18 05/24/18 Range/Units 16:20 20:16 05:58 POC Glucose (mg/dL) 184 H 195 H 178 H (75-99) mg/dL 05/24/18 Range/Units 11:15 POC Glucose (mg/dL) 188 H (75-99) mg/dL Microbiology - Last 24 Hours (Table) 05/21/18 00:35 Blood Culture - Preliminary Blood No Growth after 72 hours - Imaging and Cardiology Chest x-ray: report reviewed Assessment and Plan Plan: Assessment Acute on chronic hypoxic respiratory failure secondary to acute exacerbation of COPD on home O2 at home Chronic hypercapnic respiratory failure secondary to advanced COPD Chronic and continued nicotine dependence Recurrent hospitalization for respiratory complications secondary to COPD Coronary disease with previous [place] Severe cachexia with and debility moderate protein calorie deficiency malnutrition GERD Osteoarthritis with narcotic dependency Plan Continue consultation with pulmonology Patient on IV steroids bronchodilators Pulmicort empiric and biotics continues with BiPAP support
[2018-05-24] MEDS: ALPRAZolam 0.25 MG TAB PO PRN (12:50)
--- NOTE | 2018-05-24 15:28 | P.PN ---
Subjective Progress Note Date: 05/24/18 Principal diagnosis: Acute on chronic hypercapnic respiratory failure secondary to acute exacerbation of chronic obstructive pulmonary disease. This is a 47-year-old white female patient of Dr. John, who also follows with Dr. Molina in the pulmonary office for her end-stage COPD, with chronic actinic respiratory failure, prednisone dependent, on AVAPS ventilator for chronic hypercapnic respiratory failure. Patient has had multiple hospitalizations for recurrent pulmonary complications related to COPD. Unfortunately she continues to smoke, she states she is currently down to 2 cigarettes a day. She is on a combination of Symbicort, increased, theophylline , and nebulized treatments around the clock. She is on AVAPS at home to support her breathing based on her recurrent hospitalizations and COPD exacerbations. Today she presented with complaints of worsening shortness of breath, cough, with production of yellow sputum. Chest x-ray was completed and it showed no acute cardiopulmonary process. This was reviewed by Dr. Lino. She was placed on BiPAP support, with pressures 12 over 4, and 50%. Blood work showed WBC of 13.3, hemoglobin of 12.0, d-dimer was within normal limits, electrolytes were essentially unremarkable, the CO2 of 34, indicating chronic hypercapnic respiratory failure, BUN is 22, creatinine 0.46. Cardiac enzymes, proBNP, and LFTs were all within normal limits. Patient has been afebrile, she is slightly tachycardic with a heart rate in the low 100s, on presentation she was hypoxemic with a pulse ox of 81%. Her pulse ox right now is 93% on 50% FiO2. He remains tachypneic, with a respiratory rate in the 20s, and at times in the low 30s. Lung sounds are positive for breast sounds, and diffuse wheezes. Patient is awake and alert, she is very dyspneic with conversation, and is not able to provide lengthy answers. Patient was started on steroids, empiric antibiotics in the form of Levaquin, nebulized bronchodilators, and Symbicort. On 05/22/2018 patient seen in follow-up on selective care unit. She remains on BiPAP support, most of the time, she is able to show trials of nasal cannula for meals. For now she remains largely BiPAP dependent. Bronchospastic, and wheezy, not bringing up much sputum right now. Afebrile, vital signs are stable. IPAP settings of 12 and 4 and 50%. Denies any fever or chills. Today' s blood work was reviewed, the PVCs 9.4, he is 11.4, electrolytes are unremarkable, renal profile is stable, B1 is 21, creatinine 0.43. Continue current medical treatment, IV steroids, nebulized bronchodilators, Levaquin. On 05/23/2018 patient seen in follow-up on selective care unit. Is able to tolerate short trials on nasal cannula at 6 L/m, but most of the time she remains BiPAP dependent, at pressures 12 over 4, and 50% FiO2. Occasionally she is able to bring up some sputum, lung sounds remain quite bronchospastic, and short of breath with any activity. Patient is getting up to use the bedside commode, and that has been pretty much to extent of her activity. She is afebrile, hemodynamic with stable. Blood cultures are negative, she remains on high-dose steroids 60 mg every 6 hours, theophylline, Levaquin, nebulized bronchodilators, Pulmicort and Perforomist. We'll continue with current treatment. On 05/24/2018 patient seen in follow-up. Breathing little easier today, still has some diffuse wheezes, remains on BiPAP, has been able to come off for short periods of time. Vital signs are stable, she is afebrile. No new chest x-rays or lab work today. Overall patient is improving. We'll continue current medical treatment, cultures remain negative. Objective - Vital Signs Vital signs: Vital Signs Temp 97.8 F 05/24/18 12:00 Pulse 72 05/24/18 12:06 Resp 18 05/24/18 12:00 BP 130/81 05/24/18 12:00 Pulse Ox 99 05/24/18 12:00 Intake & Output 05/23/18 05/24/18 05/24/18 18:59 06:59 18:59 Intake Total 1692 240 Balance 1692 240 Weight 51.8 kg Intake: Intake, IV Titration 750 Amount Levofloxacin 750Mg-D5w 150 Pmx 750 mg In Dextrose/ Water 1 150ml.bag @ 100 mls/hr IVPB DAILY [facility] Rx# :[id number] Sodium Chloride 0.9% 1, 600 000 ml @ 100 mls/hr IV . Q10H [facility] Rx#:[id number] Oral 942 240 Other: Voiding Method Bedside Commode # Voids 3 4 - Exam GENERAL EXAM: Alert, cachectic 47-year-old white female, appears older than stated age currently on BiPAP support, tachypnea, mild to moderate amount of respiratory distress, using accessory muscles of breathing. HEAD: Normocephalic/atraumatic. EYES: Normal reaction of pupils, equal size. Conjunctiva pink, sclera white. NOSE: Clear with pink turbinates. THROAT: No erythema or exudates. NECK: No masses, no JVD, no thyroid enlargement, no adenopathy. CHEST: No chest wall deformity. Symmetrical expansion. LUNGS: Decreased breath sounds, with diffuse wheezes CVS: Regular rate and rhythm, normal S1 and S2, no gallops, no murmurs, no rubs ABDOMEN: Soft, nontender. No hepatosplenomegaly, normal bowel sounds, no guarding or rigidity. EXTREMITIES: No clubbing, no edema, no cyanosis, 2+ pulses and upper and lower extremities. MUSCULOSKELETAL: Muscle strength and tone normal. SPINE: No scoliosis or deformity SKIN: No rashes CENTRAL NERVOUS SYSTEM: Alert and oriented -3. No focal deficits, tone is normal in all 4 extremities. PSYCHIATRIC: Alert and oriented -3. Appropriate affect. Intact judgment and insight. - Labs CBC & Chem 7: 05/22/18 06:02 05/22/18 06:02 Labs: Abnormal Lab Results - Last 24 Hours (Table) 05/23/18 05/23/18 05/24/18 Range/Units 16:20 20:16 05:58 POC Glucose (mg/dL) 184 H 195 H 178 H (75-99) mg/dL 05/24/18 Range/Units 11:15 POC Glucose (mg/dL) 188 H (75-99) mg/dL Microbiology - Last 24 Hours (Table) 05/21/18 00:35 Blood Culture - Preliminary Blood No Growth after 72 hours Assessment and Plan Plan: Assessment #1. Acute on chronic hypoxemic respiratory failure secondary to acute exacerbation of chronic obstructive pulmonary disease. Chest x-ray was reviewed , and showed no acute cardiopulmonary process #2. Chronic hypercapnic respiratory failure secondary to advanced COPD, patient has AVAPS ventilator at home #3. Chronic and ongoing nicotine dependence, down to 2 cigarettes a day #4. Recurrent hospitalization for respiratory complications did to COPD #5. Coronary artery disease and previous myocardial infarction #6. Previous episodes of pneumonia #7. Severe cachexia and debility Plan: Continue current medical treatment, continue current dose of IV Solu-Medrol, may start titrating down starting tomorrow, overall patient is making slow improvement. Continue BiPAP support at bedtime, and as needed through the day. Continue nebulized bronchodilators, I performed a history & physical examination of the patient and discussed their management with my nurse practitioner, Elida Agarwal. I reviewed the nurse practitioner's note and agree with the documented findings and plan of care. Lung sounds are positive for diffuse wheezes throughout the lung cagle. The findings and the impression was discussed with the patient. I attest to the documentation by the nurse practitioner. Time with Patient: Less than 30
[2018-05-24 16:34] LABS: Glucose,Whole Blood 228 mg/dL (75-99)
[2018-05-24] MEDS: IPRATROPIUM-ALBUTEROL 3 ML NEB INHALATION PRN (17:52)
[2018-05-24 20:16] LABS: Glucose,Whole Blood 181 mg/dL (75-99)
[2018-05-24] MEDS: buPROPion SR 150 MG TABLET.ER PO SCH (20:22)
[2018-05-24] MEDS: risperiDONE 1 MG TAB PO SCH (20:23)
[2018-05-24] MEDS: traZODone HCL 100 MG TAB PO SCH (20:23)
[2018-05-25] MEDS: HYDROmorphone 1 MG/ML 1 ML SYRINGE IVP PRN ×4 (02:36→22:16)
[2018-05-25] MEDS: IPRATROPIUM-ALBUTEROL 3 ML NEB INHALATION SCH ×5 (04:50→19:38)
[2018-05-25 06:11] LABS: Glucose,Whole Blood 196 mg/dL (75-99)
[2018-05-25] MEDS: INSULIN ASPART 100 UNIT/ML 1 ML 10 ML VIAL SQ SCH ×4 (06:18→22:16)
[2018-05-25] MEDS: methylPREDNISolone SOD SUCCI 125 MG/2 ML VIAL IV SCH ×2 (06:18→12:35)
[2018-05-25] MEDS: PANTOPRAZOLE 40 MG TABLET PO SCH (06:18)
[2018-05-25] MEDS: FORMOTEROL FUMARATE 20 MCG/2 ML NEBU INHALATION SCH ×2 (07:12→19:38)
[2018-05-25] MEDS: BUDESONIDE 1 MG/2 ML NEBU INHALATION SCH ×2 (07:12→19:38)
[2018-05-25] MEDS: VERAPAMIL SR 240 MG TABLET.ER PO SCH (09:35)
[2018-05-25] MEDS: METOPROLOL TARTRATE 12.5 MG TAB PO SCH ×2 (09:35→20:26)
[2018-05-25] MEDS: LEVOFLOXACIN 750 MG TAB PO SCH (09:35)
[2018-05-25] MEDS: THEOPHYLLINE 24 HOUR 200 MG CAP.ER.24H PO SCH ×2 (09:36→20:26)
[2018-05-25] MEDS: IPRATROPIUM-ALBUTEROL 3 ML NEB INHALATION PRN ×2 (09:39→14:24)
[2018-05-25] MEDS: PREGABALIN 75 MG CAP PO SCH ×2 (09:40→20:26)
[2018-05-25 11:51] LABS: Glucose,Whole Blood 208 mg/dL (75-99)
--- NOTE | 2018-05-25 11:52 | P.PN ---
Subjective Noted improvement taking BiPAP off intermittently Objective - Vital Signs Vital signs: Vital Signs Temp 97.3 F L 05/25/18 08:00 Pulse 92 05/25/18 11:44 Resp 16 05/25/18 04:00 BP 167/97 05/25/18 08:00 Pulse Ox 100 05/25/18 08:00 Intake & Output 05/24/18 05/25/18 05/25/18 18:59 06:59 18:59 Intake Total 480 525 480 Balance 480 525 480 Weight 51.5 kg Intake: Intake, IV Titration 525 Amount Sodium Chloride 0.9% 1, 525 000 ml @ 100 mls/hr IV . Q10H [facility] Rx#:[id number] Oral 480 480 Other: Voiding Method Bedside Commode # Voids 1 1 # Bowel Movements 0 - Constitutional General appearance: Present: thin - EENT Eyes: Present: PERRLA Ears: bilateral: normal - Neck Neck: Present: normal ROM - Respiratory Respiratory: bilateral: diminished, wheezing - Cardiovascular Rhythm: regular - Gastrointestinal General gastrointestinal: Present: soft - Integumentary Integumentary: Present: normal - Neurologic Neurologic: Present: CNII-XII intact - Musculoskeletal Musculoskeletal: Present: generalized weakness - Psychiatric Psychiatric: Present: A&O x's 3, appropriate affect, intact judgment & insight - Labs CBC & Chem 7: 05/22/18 06:02 05/22/18 06:02 Labs: Abnormal Lab Results - Last 24 Hours (Table) 05/24/18 05/24/18 05/25/18 Range/Units 16:31 20:15 06:09 POC Glucose (mg/dL) 228 H 181 H 196 H (75-99) mg/dL Microbiology - Last 24 Hours (Table) 05/21/18 00:35 Blood Culture - Preliminary Blood No Growth after 96 hours Assessment and Plan Plan: Assessment Acute on chronic hypoxic respiratory failure secondary to exacerbation of COPD Chronic hypercapnic arrest or a failure secondary to advanced COPD Chronic ongoing nicotine dependence Recurrent hospitalization for respiratory complications secondary to COPD History of coronary disease previous DE Severe cachexia and debility moderate protein calorie malnutrition GERD Osteoarthritis narcotic dependence Plan Continue consultation with pulmonology Steroids bronchodilators Pulmicort empirical antibiotics BiPAP support as needed
[2018-05-25] MEDS: ALPRAZolam 0.25 MG TAB PO PRN (13:00)
--- NOTE | 2018-05-25 13:15 | P.PN ---
Subjective Progress Note Date: 05/25/18 Principal diagnosis: Acute on chronic hypercapnic respiratory failure secondary to acute exacerbation of chronic obstructive pulmonary disease. This is a 47-year-old white female patient of Dr. John, who also follows with Dr. Molina in the pulmonary office for her end-stage COPD, with chronic actinic respiratory failure, prednisone dependent, on AVAPS ventilator for chronic hypercapnic respiratory failure. Patient has had multiple hospitalizations for recurrent pulmonary complications related to COPD. Unfortunately she continues to smoke, she states she is currently down to 2 cigarettes a day. She is on a combination of Symbicort, increased, theophylline , and nebulized treatments around the clock. She is on AVAPS at home to support her breathing based on her recurrent hospitalizations and COPD exacerbations. Today she presented with complaints of worsening shortness of breath, cough, with production of yellow sputum. Chest x-ray was completed and it showed no acute cardiopulmonary process. This was reviewed by Dr. Lino. She was placed on BiPAP support, with pressures 12 over 4, and 50%. Blood work showed WBC of 13.3, hemoglobin of 12.0, d-dimer was within normal limits, electrolytes were essentially unremarkable, the CO2 of 34, indicating chronic hypercapnic respiratory failure, BUN is 22, creatinine 0.46. Cardiac enzymes, proBNP, and LFTs were all within normal limits. Patient has been afebrile, she is slightly tachycardic with a heart rate in the low 100s, on presentation she was hypoxemic with a pulse ox of 81%. Her pulse ox right now is 93% on 50% FiO2. He remains tachypneic, with a respiratory rate in the 20s, and at times in the low 30s. Lung sounds are positive for breast sounds, and diffuse wheezes. Patient is awake and alert, she is very dyspneic with conversation, and is not able to provide lengthy answers. Patient was started on steroids, empiric antibiotics in the form of Levaquin, nebulized bronchodilators, and Symbicort. On 05/22/2018 patient seen in follow-up on selective care unit. She remains on BiPAP support, most of the time, she is able to show trials of nasal cannula for meals. For now she remains largely BiPAP dependent. Bronchospastic, and wheezy, not bringing up much sputum right now. Afebrile, vital signs are stable. IPAP settings of 12 and 4 and 50%. Denies any fever or chills. Today' s blood work was reviewed, the PVCs 9.4, he is 11.4, electrolytes are unremarkable, renal profile is stable, B1 is 21, creatinine 0.43. Continue current medical treatment, IV steroids, nebulized bronchodilators, Levaquin. On 05/23/2018 patient seen in follow-up on [facility] care unit. Is able to tolerate short trials on nasal cannula at 6 L/m, but most of the time she remains BiPAP dependent, at pressures 12 over 4, and 50% FiO2. Occasionally she is able to bring up some sputum, lung sounds remain quite bronchospastic, and short of breath with any activity. Patient is getting up to use the bedside commode, and that has been pretty much to extent of her activity. She is afebrile, hemodynamic with stable. Blood cultures are negative, she remains on high-dose steroids 60 mg every 6 hours, theophylline, Levaquin, nebulized bronchodilators, Pulmicort and Perforomist. We'll continue with current treatment. On 05/24/2018 patient seen in follow-up. Breathing little easier today, still has some diffuse wheezes, remains on BiPAP, has been able to come off for short periods of time. Vital signs are stable, she is afebrile. No new chest x-rays or lab work today. Overall patient is improving. We'll continue current medical treatment, cultures remain negative. On 05/25/2018 patient seen in follow-up on [facility] care unit, currently on nasal cannula at 6 L per high flow nasal cannula, patient is on BiPAP at night, and intermittently through the day. Lung sounds are positive for sounds, with scattered wheezes, prolongation of expiratory phase, overall improved since admission, at times patient will have coughing spells, and she is able to clear some thick phlegm. Microbiology remains negative, patient remains on high-dose steroids, empiric antibiotics, nebulized bronchodilators. She is improving, we will decrease her steroids to 40 mg every 8 hours, continue with the same medical treatment, anticipate discharge possibly in the next 24 hours. Objective - Vital Signs Vital signs: Vital Signs Temp 97.3 F L 05/25/18 08:00 Pulse 83 05/25/18 12:00 Resp 16 05/25/18 04:00 BP 151/88 10/04/18 12:00 Pulse Ox 97 05/25/18 12:00 Intake & Output 05/24/18 05/25/18 05/25/18 18:59 06:59 18:59 Intake Total 480 525 480 Balance 480 525 480 Weight 51.5 kg Intake: Intake, IV Titration 525 Amount Sodium Chloride 0.9% 1, 525 000 ml @ 100 mls/hr IV . Q10H [facility] Rx#:[id number] Oral 480 480 Other: Voiding Method Bedside Commode # Voids 1 1 # Bowel Movements 0 - Exam GENERAL EXAM: Alert, cachectic 47-year-old white female, appears older than stated age on nasal cannula, at 6 L/m, she is wearing BiPAP intermittently HEAD: Normocephalic/atraumatic. EYES: Normal reaction of pupils, equal size. Conjunctiva pink, sclera white. NOSE: Clear with pink turbinates. THROAT: No erythema or exudates. NECK: No masses, no JVD, no thyroid enlargement, no adenopathy. CHEST: No chest wall deformity. Symmetrical expansion. LUNGS: Decreased breath sounds, with diffuse wheezes CVS: Regular rate and rhythm, normal S1 and S2, no gallops, no murmurs, no rubs ABDOMEN: Soft, nontender. No hepatosplenomegaly, normal bowel sounds, no guarding or rigidity. EXTREMITIES: No clubbing, no edema, no cyanosis, 2+ pulses and upper and lower extremities. MUSCULOSKELETAL: Muscle strength and tone normal. SPINE: No scoliosis or deformity SKIN: No rashes CENTRAL NERVOUS SYSTEM: Alert and oriented -3. No focal deficits, tone is normal in all 4 extremities. PSYCHIATRIC: Alert and oriented -3. Appropriate affect. Intact judgment and insight. - Labs CBC & Chem 7: 05/22/18 06:02 05/22/18 06:02 Labs: Abnormal Lab Results - Last 24 Hours (Table) 05/24/18 05/24/18 05/25/18 Range/Units 16:31 20:15 06:09 POC Glucose (mg/dL) 228 H 181 H 196 H (75-99) mg/dL 05/25/18 Range/Units 11:49 POC Glucose (mg/dL) 208 H (75-99) mg/dL Microbiology - Last 24 Hours (Table) 05/21/18 00:35 Blood Culture - Preliminary Blood No Growth after 96 hours Assessment and Plan Plan: Assessment #1. Acute on chronic hypoxemic respiratory failure secondary to acute exacerbation of chronic obstructive pulmonary disease. Chest x-ray was reviewed , and showed no acute cardiopulmonary process #2. Chronic hypercapnic respiratory failure secondary to advanced COPD, patient has AVAPS ventilator at home #3. Chronic and ongoing nicotine dependence, down to 2 cigarettes a day #4. Recurrent hospitalization for respiratory complications did to COPD #5. Coronary artery disease and previous myocardial infarction #6. Previous episodes of pneumonia #7. Severe cachexia and debility Plan: Continue current medical treatment, decrease current dose of IV Solu-Medrol to 40 mg every 8 hours, overall patient is making slow improvement. Continue BiPAP support at bedtime, and as needed through the day. Continue nebulized bronchodilators. I performed a history & physical examination of the patient and discussed their management with my nurse practitioner, Elida Agarwal. I reviewed the nurse practitioner's note and agree with the documented findings and plan of care. Lung sounds are positive for diffuse wheezes throughout the lung cagle. The findings and the impression was discussed with the patient. I attest to the documentation by the nurse practitioner. Time with Patient: Less than 30
[2018-05-25] MEDS: guaiFENesin-DM 100-10MG/5ML 10 ML CUP PO PRN (16:30)
[2018-05-25 16:54] LABS: Glucose,Whole Blood 211 mg/dL (75-99)
[2018-05-25] MEDS: methylPREDNISolone SOD SUCCI 40 MG/ML 1 ML VIAL IV SCH ×2 (17:41→23:17)
[2018-05-25] MEDS: SODIUM CHLORIDE 0.9% 1,000 ML IV SCH (17:42)
[2018-05-25] MEDS: buPROPion SR 150 MG TABLET.ER PO SCH (20:26)
[2018-05-25] MEDS: traZODone HCL 100 MG TAB PO SCH (20:26)
[2018-05-25] MEDS: risperiDONE 1 MG TAB PO SCH (20:26)
[2018-05-25 21:10] LABS: Glucose,Whole Blood 225 mg/dL (75-99)
[2018-05-26] MEDS: IPRATROPIUM-ALBUTEROL 3 ML NEB INHALATION SCH ×6 (01:12→19:59)
[2018-05-26] MEDS: HYDROmorphone 1 MG/ML 1 ML SYRINGE IVP PRN ×4 (03:51→22:24)
[2018-05-26] MEDS: hydrALAZINE HCL 25 MG TAB PO PRN ×2 (03:51→09:03)
[2018-05-26] MEDS: SODIUM CHLORIDE 0.9% 1,000 ML IV SCH ×2 (03:54→12:19)
[2018-05-26 06:15] LABS: Glucose,Whole Blood 195 mg/dL (75-99)
[2018-05-26] MEDS: PANTOPRAZOLE 40 MG TABLET PO SCH (06:30)
[2018-05-26] MEDS: INSULIN ASPART 100 UNIT/ML 1 ML 10 ML VIAL SQ SCH ×4 (06:30→22:23)
[2018-05-26] MEDS: BUDESONIDE 1 MG/2 ML NEBU INHALATION SCH ×2 (07:19→19:58)
[2018-05-26] MEDS: FORMOTEROL FUMARATE 20 MCG/2 ML NEBU INHALATION SCH ×2 (07:22→19:58)
[2018-05-26] MEDS: THEOPHYLLINE 24 HOUR 200 MG CAP.ER.24H PO SCH ×2 (09:00→20:50)
[2018-05-26] MEDS: PREGABALIN 75 MG CAP PO SCH ×2 (09:00→20:50)
[2018-05-26] MEDS: methylPREDNISolone SOD SUCCI 40 MG/ML 1 ML VIAL IV SCH (09:01)
[2018-05-26] MEDS: METOPROLOL TARTRATE 12.5 MG TAB PO SCH ×2 (09:01→20:51)
[2018-05-26] MEDS: VERAPAMIL SR 240 MG TABLET.ER PO SCH (09:01)
[2018-05-26] MEDS: LEVOFLOXACIN 750 MG TAB PO SCH (09:01)
[2018-05-26] MEDS: IPRATROPIUM-ALBUTEROL 3 ML NEB INHALATION PRN (09:59)
[2018-05-26 11:39] LABS: Glucose,Whole Blood 155 mg/dL (75-99)
[2018-05-26] MEDS: ALPRAZolam 0.25 MG TAB PO PRN (12:19)
[2018-05-26 12:56] VITALS: BMI 19.6
--- NOTE | 2018-05-26 14:38 | P.PN ---
Subjective Progress Note Date: 05/26/18 Principal diagnosis: Acute on chronic hypercapnic respiratory failure secondary to acute exacerbation of chronic obstructive pulmonary disease. This is a 47-year-old white female patient of Dr. John, who also follows with Dr. Molina in the pulmonary office for her end-stage COPD, with chronic actinic respiratory failure, prednisone dependent, on AVAPS ventilator for chronic hypercapnic respiratory failure. Patient has had multiple hospitalizations for recurrent pulmonary complications related to COPD. Unfortunately she continues to smoke, she states she is currently down to 2 cigarettes a day. She is on a combination of Symbicort, increased, theophylline , and nebulized treatments around the clock. She is on AVAPS at home to support her breathing based on her recurrent hospitalizations and COPD exacerbations. Today she presented with complaints of worsening shortness of breath, cough, with production of yellow sputum. Chest x-ray was completed and it showed no acute cardiopulmonary process. This was reviewed by Dr. Lino. She was placed on BiPAP support, with pressures 12 over 4, and 50%. Blood work showed WBC of 13.3, hemoglobin of 12.0, d-dimer was within normal limits, electrolytes were essentially unremarkable, the CO2 of 34, indicating chronic hypercapnic respiratory failure, BUN is 22, creatinine 0.46. Cardiac enzymes, proBNP, and LFTs were all within normal limits. Patient has been afebrile, she is slightly tachycardic with a heart rate in the low 100s, on presentation she was hypoxemic with a pulse ox of 81%. Her pulse ox right now is 93% on 50% FiO2. He remains tachypneic, with a respiratory rate in the 20s, and at times in the low 30s. Lung sounds are positive for breast sounds, and diffuse wheezes. Patient is awake and alert, she is very dyspneic with conversation, and is not able to provide lengthy answers. Patient was started on steroids, empiric antibiotics in the form of Levaquin, nebulized bronchodilators, and Symbicort. On 05/22/2018 patient seen in follow-up on selective care unit. She remains on BiPAP support, most of the time, she is able to show trials of nasal cannula for meals. For now she remains largely BiPAP dependent. Bronchospastic, and wheezy, not bringing up much sputum right now. Afebrile, vital signs are stable. IPAP settings of 12 and 4 and 50%. Denies any fever or chills. Today' s blood work was reviewed, the PVCs 9.4, he is 11.4, electrolytes are unremarkable, renal profile is stable, B1 is 21, creatinine 0.43. Continue current medical treatment, IV steroids, nebulized bronchodilators, Levaquin. On 05/23/2018 patient seen in follow-up on [facility] care unit. Is able to tolerate short trials on nasal cannula at 6 L/m, but most of the time she remains BiPAP dependent, at pressures 12 over 4, and 50% FiO2. Occasionally she is able to bring up some sputum, lung sounds remain quite bronchospastic, and short of breath with any activity. Patient is getting up to use the bedside commode, and that has been pretty much to extent of her activity. She is afebrile, hemodynamic with stable. Blood cultures are negative, she remains on high-dose steroids 60 mg every 6 hours, theophylline, Levaquin, nebulized bronchodilators, Pulmicort and Perforomist. We'll continue with current treatment. On 05/24/2018 patient seen in follow-up. Breathing little easier today, still has some diffuse wheezes, remains on BiPAP, has been able to come off for short periods of time. Vital signs are stable, she is afebrile. No new chest x-rays or lab work today. Overall patient is improving. We'll continue current medical treatment, cultures remain negative. On 05/25/2018 patient seen in follow-up on selective care unit, currently on nasal cannula at 6 L per high flow nasal cannula, patient is on BiPAP at night, and intermittently through the day. Lung sounds are positive for sounds, with scattered wheezes, prolongation of expiratory phase, overall improved since admission, at times patient will have coughing spells, and she is able to clear some thick phlegm. Microbiology remains negative, patient remains on high-dose steroids, empiric antibiotics, nebulized bronchodilators. She is improving, we will decrease her steroids to 40 mg every 8 hours, continue with the same medical treatment, anticipate discharge possibly in the next 24 hours. On May 26, 2018 patient seen in follow-up on [facility] care unit, she states she is having more trouble breathing today, increased chest tightness, and she is staying on BiPAP most of the time. Diminished breath sounds, with end expiratory wheezing, he does work of breathing seems to have increased. We will increase the Solu-Medrol back to 60 mg every 6 hours, patient remains afebrile, hemodynamically stable, she is coming off the BiPAP for meals only. He continues on empiric antibiotic coverage, and theophylline in addition to cough syrup, and nebulized bronchodilators around the clock. Blood cultures are negative, no fever or chills. Objective - Vital Signs Vital signs: Vital Signs Temp 98.5 F 05/26/18 08:00 Pulse 88 05/26/18 12:04 Resp 20 05/26/18 04:00 BP 185/94 05/26/18 08:00 Pulse Ox 94 L 05/26/18 08:00 Intake & Output 05/25/18 05/26/18 05/26/18 18:59 06:59 18:59 Intake Total 1102 375 280 Output Total 1200 200 Balance -98 375 80 Weight 52 kg 52 kg Intake: IV 375 Sodium Chloride 0.9% 1, 375 000 ml @ 100 mls/hr IV . Q10H [place] Rx#:[id number] Oral 1102 280 Output: Urine 1200 200 Other: # Voids 3 2 # Bowel Movements 1 - Exam GENERAL EXAM: Alert, cachectic 47-year-old white female, appears older than stated age on nasal cannula, on BiPAP support, patient is using accessory muscles of breathing, she is complaining of increased shortness of breath and chest tightness HEAD: Normocephalic/atraumatic. EYES: Normal reaction of pupils, equal size. Conjunctiva pink, sclera white. NOSE: Clear with pink turbinates. THROAT: No erythema or exudates. NECK: No masses, no JVD, no thyroid enlargement, no adenopathy. CHEST: No chest wall deformity. Symmetrical expansion. LUNGS: Decreased breath sounds, with diffuse wheezes CVS: Regular rate and rhythm, normal S1 and S2, no gallops, no murmurs, no rubs ABDOMEN: Soft, nontender. No hepatosplenomegaly, normal bowel sounds, no guarding or rigidity. EXTREMITIES: No clubbing, no edema, no cyanosis, 2+ pulses and upper and lower extremities. MUSCULOSKELETAL: Muscle strength and tone normal. SPINE: No scoliosis or deformity SKIN: No rashes CENTRAL NERVOUS SYSTEM: Alert and oriented -3. No focal deficits, tone is normal in all 4 extremities. PSYCHIATRIC: Alert and oriented -3. Appropriate affect. Intact judgment and insight. - Labs CBC & Chem 7: 05/22/18 06:02 05/22/18 06:02 Labs: Abnormal Lab Results - Last 24 Hours (Table) 05/25/18 05/25/18 05/26/18 Range/Units 16:53 21:09 06:14 POC Glucose (mg/dL) 211 H 225 H 195 H (75-99) mg/dL 05/26/18 Range/Units 11:31 POC Glucose (mg/dL) 155 H (75-99) mg/dL Microbiology - Last 24 Hours (Table) 05/21/18 00:35 Blood Culture - Preliminary Blood No Growth after 120 hours Assessment and Plan Plan: Assessment #1. Acute on chronic hypoxemic respiratory failure secondary to acute exacerbation of chronic obstructive pulmonary disease. Chest x-ray was reviewed , and showed no acute cardiopulmonary process #2. Chronic hypercapnic respiratory failure secondary to advanced COPD, patient has AVAPS ventilator at home #3. Chronic and ongoing nicotine dependence, down to 2 cigarettes a day #4. Recurrent hospitalization for respiratory complications did to COPD #5. Coronary artery disease and previous myocardial infarction #6. Previous episodes of pneumonia #7. Severe cachexia and debility Plan: Patient is experiencing worsening shortness of breath, and chest tightness. We' ll increase the Solu-Medrol to 60 mg every 6 hours. Continue all other medical treatments, continue nebulized bronchodilators around the clock, Pulmicort and Perforomist, empiric antibiotic coverage. Theophylline. Continue BiPAP support at bedtime, and as needed through the day. Continue nebulized bronchodilators. I performed a history & physical examination of the patient and discussed their management with my nurse practitioner, Elida Agarwal. I reviewed the nurse practitioner's note and agree with the documented findings and plan of care. Lung sounds are positive for diffuse wheezes throughout the lung cagle. The findings and the impression was discussed with the patient. I attest to the documentation by the nurse practitioner. Time with Patient: Less than 30
[2018-05-26 17:15] LABS: Glucose,Whole Blood 120 mg/dL (75-99)
--- NOTE | 2018-05-26 17:53 | P.PN ---
Subjective Progress Note Date: 05/26/18 Progress note being dictated for Dr. Kaur Interval history: This a 47-year-old female admitted with acute COPD exacerbation, acute on chronic hypercapnic respiratory failure and multiple other medical issues. Maintained on nebulized bronchodilators, IV steroids and antibiotics. Breathing worse today ,BiPAP dependent, only off for meals. Afebrile, cultures negative. Denies chest pain, palpitations. Objective - Vital Signs Vital signs: Vital Signs Temp 98.5 F 05/26/18 08:00 Pulse 80 05/26/18 15:03 Resp 20 05/26/18 04:00 BP 187/97 05/26/18 12:00 Pulse Ox 92 L 05/26/18 12:00 Intake & Output 05/25/18 05/26/18 05/26/18 18:59 06:59 18:59 Intake Total 1102 375 280 Output Total 1200 500 Balance -98 375 -220 Weight 52 kg 52 kg Intake: IV 375 Sodium Chloride 0.9% 1, 375 000 ml @ 100 mls/hr IV . Q10H [place] Rx#:[id number] Oral 1102 280 Output: Urine 1200 500 Other: # Voids 3 2 # Bowel Movements 1 - Exam PHYSICAL EXAM: VITAL SIGNS: As above GENERAL: Sitting up in bed, cachexic, wearing BiPAP, respiratory effort increased with accessory muscle use HEENT: Conjunctivae normal. eyes normal. NECK: No JVD. No thyroid enlargement. No LNs CARDIOVASCULAR: S1, S2 muffled. No murmur RESPIRATION: Breath sounds diminished in the bases. Scattered expiratory wheezing ABDOMEN: Soft, nontender . No guarding. no masses palpable.Bowel sounds heard. LEGS: No edema. no swelling PSYCHIATRY: Alert and oriented -3, mood and affect normal. NERVOUS SYSTEM: Cranial N 2-12 grossly normal. Moves all 4 limbs. Diffuse weakness No focal deficits. No sensory deficit. Skin: no rash Joints: No active swelling. No inflammation. Lymphatic system. No LN neck axilla or groin. Microbiology 05/21/18 00:35 Blood Blood Culture - Preliminary No Growth after 120 hours - Labs CBC & Chem 7: 05/22/18 06:02 05/22/18 06:02 Labs: Abnormal Lab Results - Last 24 Hours (Table) 05/25/18 05/26/18 05/26/18 Range/Units 21:09 06:14 11:31 POC Glucose (mg/dL) 225 H 195 H 155 H (75-99) mg/dL 05/26/18 Range/Units 16:36 POC Glucose (mg/dL) 120 H (75-99) mg/dL Microbiology - Last 24 Hours (Table) 05/21/18 00:35 Blood Culture - Preliminary Blood No Growth after 120 hours Assessment and Plan Assessment: 1. Acute COPD exacerbation 2. Acute on chronic hypoxic, hypercapnic respiratory failure secondary to the above; home ventilator-AVAPS 3. CAD, history of PR 4. Continued, Ongoing nicotine dependence 5. Medical debility Plan: Continue on current medication regime ,monitoring and symptomatic treatment. Maintain ATC nebulized bronchodilators, steroids, antibiotics. Steroids dose increased today. Follow closely with pulmonary. Gnosis guarded given multiple complex medical issues. The impression and plan of care has been dictated as directed. : I performed a history and examination of this patient, discussed the same with the dictator. I agree with the dictator's note ,documented as a scribe. Any additional findings or plans will be noted.
[2018-05-26] MEDS: hydrALAZINE HCL 25 MG TAB PO SCH ×2 (18:52→23:32)
[2018-05-26] MEDS: methylPREDNISolone SOD SUCCI 125 MG/2 ML VIAL IV SCH ×2 (18:52→23:33)
[2018-05-26] MEDS: risperiDONE 1 MG TAB PO SCH (20:50)
[2018-05-26] MEDS: traZODone HCL 100 MG TAB PO SCH (20:50)
[2018-05-26] MEDS: buPROPion SR 150 MG TABLET.ER PO SCH (20:51)
[2018-05-26 21:26] LABS: Glucose,Whole Blood 167 mg/dL (75-99)
[2018-05-27] MEDS: SODIUM CHLORIDE 0.9% 1,000 ML IV SCH ×2 (00:14→06:22)
[2018-05-27] MEDS: IPRATROPIUM-ALBUTEROL 3 ML NEB INHALATION SCH ×6 (00:33→20:01)
[2018-05-27] MEDS: HYDROmorphone 1 MG/ML 1 ML SYRINGE IVP PRN ×4 (04:13→22:08)
[2018-05-27 06:03] LABS: Glucose,Whole Blood 219 mg/dL (75-99)
[2018-05-27] MEDS: methylPREDNISolone SOD SUCCI 125 MG/2 ML VIAL IV SCH ×3 (06:21→17:10)
[2018-05-27] MEDS: PANTOPRAZOLE 40 MG TABLET PO SCH (06:22)
[2018-05-27] MEDS: INSULIN ASPART 100 UNIT/ML 1 ML 10 ML VIAL SQ SCH ×4 (06:22→22:08)
[2018-05-27 07:39] LABS: Anion Gap 6 mmol/L; Blood Urea Nitrogen 29 mg/dL (7-17); Calcium 9.4 mg/dL (8.4-10.2); Chloride 97 mmol/L (98-107); Glucose 168 mg/dL (74-99); Potassium 4.6 mmol/L (3.5-5.1); Sodium 143 mmol/L (137-145)
[2018-05-27 07:49] LABS: Anisocytosis Slight; Basophils % (A) 0 %; Eosinophils % (A) 0 %; HCT 35.4 % (34.0-46.0); HGB 11.2 gm/dL (11.4-16.0); Hypochromasia Moderate; Lymphocytes # (A) 0.7 k/uL (1.0-4.8); Lymphocytes % (A) 7 %; MCH 25.1 pg (25.0-35.0); MCHC 31.5 g/dL (31.0-37.0); MCV 79.7 fL (80.0-100.0); Mean Platelet Volume 6.5; Microcytosis Slight; Monocytes # (A) 0.3 k/uL (0-1.0); Monocytes % (A) 3 %; Neutrophils # (A) 8.5 k/uL (1.3-7.7); Neutrophils % (A) 88 %; Platelet Count 451 k/uL (150-450); RBC 4.44 m/uL (3.80-5.40); RDW 16.6 % (11.5-15.5); WBC 9.6 k/uL (3.8-10.6)
[2018-05-27 07:51] LABS: Carbon Dioxide 40 mmol/L (22-30)
[2018-05-27] MEDS: PREGABALIN 75 MG CAP PO SCH ×2 (08:47→22:28)
[2018-05-27] MEDS: THEOPHYLLINE 24 HOUR 200 MG CAP.ER.24H PO SCH ×2 (08:47→22:08)
[2018-05-27] MEDS: METOPROLOL TARTRATE 12.5 MG TAB PO SCH ×2 (08:47→22:07)
[2018-05-27] MEDS: hydrALAZINE HCL 25 MG TAB PO SCH ×3 (08:47→22:08)
[2018-05-27] MEDS: VERAPAMIL SR 240 MG TABLET.ER PO SCH (08:47)
[2018-05-27] MEDS: LEVOFLOXACIN 750 MG TAB PO SCH (08:47)
[2018-05-27] MEDS: BUDESONIDE 1 MG/2 ML NEBU INHALATION SCH ×2 (09:05→20:01)
[2018-05-27] MEDS: FORMOTEROL FUMARATE 20 MCG/2 ML NEBU INHALATION SCH ×2 (09:05→20:01)
[2018-05-27] MEDS: ALPRAZolam 0.25 MG TAB PO PRN (11:58)
[2018-05-27 12:17] LABS: Glucose,Whole Blood 176 mg/dL (75-99)
--- NOTE | 2018-05-27 14:25 | P.PN ---
Subjective Progress Note Date: 05/27/18 I'm [address]ating for Dr. Kaur Interval history: This a 47-year-old female admitted with acute COPD exacerbation, acute on chronic hypercapnic respiratory failure and multiple other medical issues. Maintained on nebulized bronchodilators, IV steroids and antibiotics. Breathing continue to worse today ,BiPAP dependent, only off for meals. Afebrile, cultures negative. Denies chest pain, palpitations. Objective - Vital Signs Vital signs: Vital Signs Temp 97.5 F L 05/27/18 11:38 Pulse 88 05/27/18 12:35 Resp 21 05/27/18 11:38 BP 131/79 05/27/18 11:38 Pulse Ox 100 05/27/18 11:38 Intake & Output 05/26/18 05/27/18 05/27/18 18:59 06:59 18:59 Intake Total 280 760 Output Total 500 Balance -220 760 Weight 52 kg 51.5 kg Intake: IV 400 Sodium Chloride 0.9% 1, 400 000 ml @ 100 mls/hr IV . Q10H [place] Rx#:[id number] Oral 280 360 Output: Urine 500 Other: # Voids 3 2 - Exam PHYSICAL EXAM: VITAL SIGNS: As above GENERAL: Sitting up in bed, cachexic, wearing BiPAP, respiratory effort increased with accessory muscle use HEENT: Conjunctivae normal. eyes normal. NECK: No JVD. No thyroid enlargement. No LNs CARDIOVASCULAR: S1, S2 muffled. No murmur RESPIRATION: Breath sounds diminished in the bases. Scattered expiratory wheezing ABDOMEN: Soft, nontender . No guarding. no masses palpable.Bowel sounds heard. LEGS: No edema. no swelling PSYCHIATRY: Alert and oriented -3, mood and affect normal. NERVOUS SYSTEM: Cranial N 2-12 grossly normal. Moves all 4 limbs. Diffuse weakness No focal deficits. No sensory deficit. Skin: no rash Joints: No active swelling. No inflammation. Lymphatic system. No LN neck axilla or groin. Active Medications Hydrocodone Bitart/Acetaminophen ([place] 5-325) 1 each PO Q6HR PRN PRN Reason: Moderate Pain Last Admin: 05/24/18 06:21 Dose: 1 each Albuterol/Ipratropium (Duoneb 0.5 Mg-3 Mg/3 Ml Soln) 3 ml INHALATION RT-Q4H [place] Last Admin: 05/27/18 12:21 Dose: 3 ml Albuterol/Ipratropium (Duoneb 0.5 Mg-3 Mg/3 Ml Soln) 3 ml INHALATION RT-Q2H PRN PRN Reason: Shortness Of Breath Or Wheezing Last Admin: 05/26/18 09:59 Dose: 3 ml Alprazolam (Xanax) 0.25 mg PO Q8HR PRN PRN Reason: Anxiety Last Admin: 05/27/18 11:58 Dose: 0.25 mg Budesonide (Pulmicort) 1 mg INHALATION RT-BID [facility] Last Admin: 05/27/18 09:05 Dose: 1 mg Bupropion HCl (Wellbutrin Sr) 150 mg PO HS [facility] Last Admin: 05/26/18 20:51 Dose: 150 mg Formoterol Fumarate (Perforomist) 20 mcg INHALATION RT-BID [facility] Last Admin: 05/27/18 09:05 Dose: 20 mcg Guaifenesin/Dextromethorphan (Robitussin Dm) 10 ml PO Q6H PRN PRN Reason: Cough Last Admin: 05/25/18 16:30 Dose: 10 ml Hydralazine HCl (Apresoline) 25 mg PO TID [facility] Last Admin: 05/27/18 08:47 Dose: 25 mg Hydromorphone HCl (Dilaudid) 0.5 mg IVP Q6HR PRN PRN Reason: Severe Pain Last Admin: 05/27/18 10:21 Dose: 0.5 mg Insulin Aspart (Novolog) 0 unit SQ ACHS [facility]; Protocol Last Admin: 05/27/18 11:58 Dose: 2 unit Levofloxacin (Levaquin) 750 mg PO DAILY [facility] Last Admin: 05/27/18 08:47 Dose: 750 mg Methylprednisolone Sodium Succinate (Solu-Medrol) 60 mg IV Q6HR [facility] Last Admin: 05/27/18 11:57 Dose: 60 mg Metoprolol Tartrate (Lopressor) 12.5 mg PO BID [facility] Last Admin: 05/27/18 08:47 Dose: 12.5 mg Pantoprazole Sodium (Protonix) 40 mg PO DAILY@0730 [facility] Last Admin: 05/27/18 06:22 Dose: 40 mg Pregabalin (Lyrica) 150 mg PO BID [facility] Last Admin: 05/27/18 08:47 Dose: 150 mg Risperidone (Risperdal) 3 mg PO HS [facility] Last Admin: 05/26/18 20:50 Dose: 3 mg Theophylline (Akhil-24) 200 mg PO BID [facility] Last Admin: 05/27/18 08:47 Dose: 200 mg Trazodone HCl (Desyrel) 300 mg PO HS [facility] Last Admin: 05/26/18 20:50 Dose: 300 mg Verapamil HCl (Isoptin Sr) 240 mg PO DAILY [facility] Last Admin: 05/27/18 08:47 Dose: 240 mg - Labs CBC & Chem 7: 05/27/18 06:43 05/27/18 06:43 Labs: Abnormal Lab Results - Last 24 Hours (Table) 05/26/18 05/26/18 05/27/18 Range/Units 16:36 21:24 05:58 Hgb (11.4-16.0) gm/dL MCV (80.0-100.0) fL RDW (11.5-15.5) % Plt Count (150-450) k/uL Neutrophils # (1.3-7.7) k/uL Lymphocytes # (1.0-4.8) k/uL Chloride (98-107) mmol/L Carbon Dioxide (22-30) mmol/L BUN (7-17) mg/dL Creatinine (0.52-1.04) mg/dL Glucose (74-99) mg/dL POC Glucose (mg/dL) 120 H 167 H 219 H (75-99) mg/dL 05/27/18 05/27/18 05/27/18 Range/Units 06:43 06:43 11:36 Hgb 11.2 L (11.4-16.0) gm/dL MCV 79.7 L (80.0-100.0) fL RDW 16.6 H (11.5-15.5) % Plt Count 451 H (150-450) k/uL Neutrophils # 8.5 H (1.3-7.7) k/uL Lymphocytes # 0.7 L (1.0-4.8) k/uL Chloride 97 L (98-107) mmol/L Carbon Dioxide 40 H (22-30) mmol/L BUN 29 H (7-17) mg/dL Creatinine 0.44 L (0.52-1.04) mg/dL Glucose 168 H (74-99) mg/dL POC Glucose (mg/dL) 176 H (75-99) mg/dL Microbiology - Last 24 Hours (Table) 05/21/18 00:35 Blood Culture - Final Blood No Growth after 144 hours Assessment and Plan Assessment: 1. Acute COPD exacerbation 2. Acute on chronic hypoxic, hypercapnic respiratory failure secondary to the above; home ventilator-AVAPS 3. CAD, history of [place] 4. Continued, Ongoing nicotine dependence 5. Medical debility Plan: ontinue on current medication regime ,monitoring and symptomatic treatment. Maintain ATC nebulized bronchodilators, steroids, antibiotics. Steroids dose increased today. Continue GI and DVT prophylaxis Follow closely with pulmonary. Prognosis guarded given multiple complex medical issues. Monitor patient closely , further plans based on her clinical course. The impression and plan of care has been dictated as directed. : I performed a history and examination of this patient, discussed the same with the dictator. I agree with the dictator's note ,documented as a scribe. Any additional findings or plans will be noted.
--- NOTE | 2018-05-27 15:42 | P.PN ---
Subjective Progress Note Date: 05/27/18 Principal diagnosis: Acute on chronic hypercapnic respiratory failure secondary to an acute exacerbation of chronic obstructive pulmonary disease. This is a 47-year-old white female patient of Dr. John, who also follows with Dr. Molina in the pulmonary office for her end-stage COPD, with chronic actinic respiratory failure, prednisone dependent, on AVAPS ventilator for chronic hypercapnic respiratory failure. Patient has had multiple hospitalizations for recurrent pulmonary complications related to COPD. Unfortunately she continues to smoke, she states she is currently down to 2 cigarettes a day. She is on a combination of Symbicort, increased, theophylline , and nebulized treatments around the clock. She is on AVAPS at home to support her breathing based on her recurrent hospitalizations and COPD exacerbations. Today she presented with complaints of worsening shortness of breath, cough, with production of yellow sputum. Chest x-ray was completed and it showed no acute cardiopulmonary process. This was reviewed by Dr. Lino. She was placed on BiPAP support, with pressures 12 over 4, and 50%. Blood work showed WBC of 13.3, hemoglobin of 12.0, d-dimer was within normal limits, electrolytes were essentially unremarkable, the CO2 of 34, indicating chronic hypercapnic respiratory failure, BUN is 22, creatinine 0.46. Cardiac enzymes, proBNP, and LFTs were all within normal limits. Patient has been afebrile, she is slightly tachycardic with a heart rate in the low 100s, on presentation she was hypoxemic with a pulse ox of 81%. Her pulse ox right now is 93% on 50% FiO2. He remains tachypneic, with a respiratory rate in the 20s, and at times in the low 30s. Lung sounds are positive for breast sounds, and diffuse wheezes. Patient is awake and alert, she is very dyspneic with conversation, and is not able to provide lengthy answers. Patient was started on steroids, empiric antibiotics in the form of Levaquin, nebulized bronchodilators, and Symbicort. On 05/22/2018 patient seen in follow-up on selective care unit. She remains on BiPAP support, most of the time, she is able to show trials of nasal cannula for meals. For now she remains largely BiPAP dependent. Bronchospastic, and wheezy, not bringing up much sputum right now. Afebrile, vital signs are stable. IPAP settings of 12 and 4 and 50%. Denies any fever or chills. Today' s blood work was reviewed, the PVCs 9.4, he is 11.4, electrolytes are unremarkable, renal profile is stable, B1 is 21, creatinine 0.43. Continue current medical treatment, IV steroids, nebulized bronchodilators, Levaquin. On 05/23/2018 patient seen in follow-up on the [facility] care unit. Is able to tolerate short trials on nasal cannula at 6 L/m, but most of the time she remains BiPAP dependent, at pressures 12 over 4, and 50% FiO2. Occasionally she is able to bring up some sputum, lung sounds remain quite bronchospastic, and short of breath with any activity. Patient is getting up to use the bedside commode, and that has been pretty much to extent of her activity. She is afebrile, hemodynamic with stable. Blood cultures are negative, she remains on high-dose steroids 60 mg every 6 hours, theophylline, Levaquin, nebulized bronchodilators, Pulmicort and Perforomist. We'll continue with current treatment. On 05/24/2018 patient seen in follow-up. Breathing little easier today, still has some diffuse wheezes, remains on BiPAP, has been able to come off for short periods of time. Vital signs are stable, she is afebrile. No new chest x-rays or lab work today. Overall patient is improving. We'll continue current medical treatment, cultures remain negative. On 05/25/2018 patient seen in follow-up on selective care unit, currently on nasal cannula at 6 L per high flow nasal cannula, patient is on BiPAP at night, and intermittently through the day. Lung sounds are positive for sounds, with scattered wheezes, prolongation of expiratory phase, overall improved since admission, at times patient will have coughing spells, and she is able to clear some thick phlegm. Microbiology remains negative, patient remains on high-dose steroids, empiric antibiotics, nebulized bronchodilators. She is improving, we will decrease her steroids to 40 mg every 8 hours, continue with the same medical treatment, anticipate discharge possibly in the next 24 hours. On May 26, 2018 patient seen in follow-up on the [facility] care unit, she states she is having more trouble breathing today, increased chest tightness, and she is staying on BiPAP most of the time. Diminished breath sounds, with end expiratory wheezing, he does work of breathing seems to have increased. We will increase the Solu-Medrol back to 60 mg every 6 hours, patient remains afebrile, hemodynamically stable, she is coming off the BiPAP for meals only. He continues on empiric antibiotic coverage, and theophylline in addition to cough syrup, and nebulized bronchodilators around the clock. Blood cultures are negative, no fever or chills. The patient is seen again today 05/27/2018 in follow-up on the selective care unit. She is currently resting fairly comfortably in bed. She is currently wearing the BiPAP. She is much more comfortable with it on. Once off she does okay on 6 L high flow nasal cannula. Her appetite is fair. She is breathing a bit easier today compared to yesterday but not quite back to her baseline. Blood cultures reveal no growth. White count 9.6. Hemoglobin 11.2. Creatinine 0.44. Bicarb 40 Objective - Vital Signs Vital signs: Vital Signs Temp 97.5 F L 05/27/18 11:38 Pulse 90 05/27/18 15:28 Resp 21 05/27/18 11:38 BP 131/79 05/27/18 11:38 Pulse Ox 100 05/27/18 11:38 Intake & Output 05/26/18 05/27/18 05/27/18 18:59 06:59 18:59 Intake Total 280 760 Output Total 500 Balance -220 760 Weight 52 kg 51.5 kg Intake: IV 400 Sodium Chloride 0.9% 1, 400 000 ml @ 100 mls/hr IV . Q10H [facility] Rx#:[id number] Oral 280 360 Output: Urine 500 Other: # Voids 3 2 - Exam GENERAL EXAM: Alert, cachectic 47-year-old white female, appears older than stated age on 6 L/m nasal cannula, on BiPAP support, patient is using accessory muscles of breathing HEAD: Normocephalic/atraumatic. EYES: Normal reaction of pupils, equal size. Conjunctiva pink, sclera white. NOSE: Clear with pink turbinates. THROAT: No erythema or exudates. NECK: No masses, no JVD, no thyroid enlargement, no adenopathy. CHEST: No chest wall deformity. Symmetrical expansion. LUNGS: Decreased breath sounds, with diffuse wheezes CVS: Regular rate and rhythm, normal S1 and S2, no gallops, no murmurs, no rubs ABDOMEN: Soft, nontender. No hepatosplenomegaly, normal bowel sounds, no guarding or rigidity. EXTREMITIES: No clubbing, no edema, no cyanosis, 2+ pulses and upper and lower extremities. MUSCULOSKELETAL: Muscle strength and tone normal. SPINE: No scoliosis or deformity SKIN: No rashes CENTRAL NERVOUS SYSTEM: Alert and oriented -3. No focal deficits, tone is normal in all 4 extremities. PSYCHIATRIC: Alert and oriented -3. Appropriate affect. Intact judgment and insight. - Labs CBC & Chem 7: 05/27/18 06:43 05/27/18 06:43 Labs: Abnormal Lab Results - Last 24 Hours (Table) 05/26/18 05/26/18 05/27/18 Range/Units 16:36 21:24 05:58 Hgb (11.4-16.0) gm/dL MCV (80.0-100.0) fL RDW (11.5-15.5) % Plt Count (150-450) k/uL Neutrophils # (1.3-7.7) k/uL Lymphocytes # (1.0-4.8) k/uL Chloride (98-107) mmol/L Carbon Dioxide (22-30) mmol/L BUN (7-17) mg/dL Creatinine (0.52-1.04) mg/dL Glucose (74-99) mg/dL POC Glucose (mg/dL) 120 H 167 H 219 H (75-99) mg/dL 05/27/18 05/27/18 05/27/18 Range/Units 06:43 06:43 11:36 Hgb 11.2 L (11.4-16.0) gm/dL MCV 79.7 L (80.0-100.0) fL RDW 16.6 H (11.5-15.5) % Plt Count 451 H (150-450) k/uL Neutrophils # 8.5 H (1.3-7.7) k/uL Lymphocytes # 0.7 L (1.0-4.8) k/uL Chloride 97 L (98-107) mmol/L Carbon Dioxide 40 H (22-30) mmol/L BUN 29 H (7-17) mg/dL Creatinine 0.44 L (0.52-1.04) mg/dL Glucose 168 H (74-99) mg/dL POC Glucose (mg/dL) 176 H (75-99) mg/dL Microbiology - Last 24 Hours (Table) 05/21/18 00:35 Blood Culture - Final Blood No Growth after 144 hours Assessment and Plan Assessment: Assessment #1. Acute on chronic hypoxemic respiratory failure secondary to acute exacerbation of chronic obstructive pulmonary disease. Chest x-ray was reviewed , and showed no acute cardiopulmonary process #2. Chronic hypercapnic respiratory failure secondary to advanced COPD, patient has AVAPS ventilator at home #3. Chronic and ongoing nicotine dependence, down to 2 cigarettes a day #4. Recurrent hospitalization for respiratory complications did to COPD #5. Coronary artery disease and previous myocardial infarction #6. Previous episodes of pneumonia #7. Severe cachexia and debility Plan: The patient was seen and evaluated by Dr. Molina. She is slightly improved today as compared to yesterday but still not back to her baseline. Continue culturing BiPAP support with 6 L nasal cannula as tolerated. Continue her current treatment plan. Increase her activity as tolerated. We'll continue to follow. I, the cosigning physician, performed a history & physical examination of the patient. Lungs sounds have bilateral end expiratory wheeze, diminished. Maintaining good O2 saturations in the 90s on 6 L high flow nasal cannula alternating with BiPAP. I discussed the assessment and plan of care with my nurse practitioner, Michaela Ribera. I attest to the above note as dictated by her.
[2018-05-27 16:40] LABS: Glucose,Whole Blood 184 mg/dL (75-99)
[2018-05-27 20:58] LABS: Glucose,Whole Blood 224 mg/dL (75-99)
[2018-05-27] MEDS: buPROPion SR 150 MG TABLET.ER PO SCH (22:07)
[2018-05-27] MEDS: traZODone HCL 100 MG TAB PO SCH (22:07)
[2018-05-27] MEDS: risperiDONE 1 MG TAB PO SCH (22:07)
[2018-05-28] MEDS: IPRATROPIUM-ALBUTEROL 3 ML NEB INHALATION SCH ×6 (00:37→20:14)
[2018-05-28] MEDS: methylPREDNISolone SOD SUCCI 125 MG/2 ML VIAL IV SCH ×5 (01:16→23:51)
[2018-05-28] MEDS: HYDROmorphone 1 MG/ML 1 ML SYRINGE IVP PRN ×4 (04:29→23:10)
[2018-05-28 06:10] LABS: Glucose,Whole Blood 154 mg/dL (75-99)
[2018-05-28] MEDS: PANTOPRAZOLE 40 MG TABLET PO SCH (06:35)
[2018-05-28] MEDS: INSULIN ASPART 100 UNIT/ML 1 ML 10 ML VIAL SQ SCH ×4 (06:35→21:16)
[2018-05-28 06:39] LABS: Anisocytosis Slight; Basophils % (A) 0 %; Eosinophils % (A) 0 %; HCT 37.1 % (34.0-46.0); HGB 10.9 gm/dL (11.4-16.0); Hypochromasia Marked; Lymphocytes # (A) 0.6 k/uL (1.0-4.8); Lymphocytes % (A) 5 %; MCH 23.9 pg (25.0-35.0); MCHC 29.5 g/dL (31.0-37.0); MCV 81.2 fL (80.0-100.0); Mean Platelet Volume 6.7; Monocytes # (A) 0.4 k/uL (0-1.0); Monocytes % (A) 4 %; Neutrophils # (A) 10.1 k/uL (1.3-7.7); Neutrophils % (A) 90 %; Platelet Count 447 k/uL (150-450); RBC 4.57 m/uL (3.80-5.40); RDW 16.8 % (11.5-15.5); WBC 11.3 k/uL (3.8-10.6)
[2018-05-28 06:52] LABS: Anion Gap 4 mmol/L; Blood Urea Nitrogen 44 mg/dL (7-17); Calcium 9.7 mg/dL (8.4-10.2); Chloride 97 mmol/L (98-107); Glucose 152 mg/dL (74-99); Potassium 4.7 mmol/L (3.5-5.1); Sodium 141 mmol/L (137-145)
[2018-05-28 07:18] LABS: Carbon Dioxide 40 mmol/L (22-30)
[2018-05-28] MEDS: BUDESONIDE 1 MG/2 ML NEBU INHALATION SCH ×2 (08:13→20:14)
[2018-05-28] MEDS: FORMOTEROL FUMARATE 20 MCG/2 ML NEBU INHALATION SCH ×2 (08:13→20:14)
[2018-05-28] MEDS: PREGABALIN 75 MG CAP PO SCH ×2 (09:09→21:24)
[2018-05-28] MEDS: METOPROLOL TARTRATE 12.5 MG TAB PO SCH ×2 (09:09→21:16)
[2018-05-28] MEDS: THEOPHYLLINE 24 HOUR 200 MG CAP.ER.24H PO SCH ×2 (09:09→21:15)
[2018-05-28] MEDS: hydrALAZINE HCL 25 MG TAB PO SCH ×3 (09:09→21:24)
[2018-05-28] MEDS: LEVOFLOXACIN 750 MG TAB PO SCH (09:09)
[2018-05-28] MEDS: VERAPAMIL SR 240 MG TABLET.ER PO SCH (09:11)
--- NOTE | 2018-05-28 11:28 | P.PN ---
Subjective Progress Note Date: 05/28/18 Principal diagnosis: Acute on chronic hypercapnic respiratory failure secondary to acute exacerbation of chronic obstructive pulmonary disease. This is a 47-year-old white female patient of Dr. John, who also follows with Dr. Molina in the pulmonary office for her end-stage COPD, with chronic actinic respiratory failure, prednisone dependent, on AVAPS ventilator for chronic hypercapnic respiratory failure. Patient has had multiple hospitalizations for recurrent pulmonary complications related to COPD. Unfortunately she continues to smoke, she states she is currently down to 2 cigarettes a day. She is on a combination of Symbicort, increased, theophylline , and nebulized treatments around the clock. She is on AVAPS at home to support her breathing based on her recurrent hospitalizations and COPD exacerbations. Today she presented with complaints of worsening shortness of breath, cough, with production of yellow sputum. Chest x-ray was completed and it showed no acute cardiopulmonary process. This was reviewed by Dr. Lino. She was placed on BiPAP support, with pressures 12 over 4, and 50%. Blood work showed WBC of 13.3, hemoglobin of 12.0, d-dimer was within normal limits, electrolytes were essentially unremarkable, the CO2 of 34, indicating chronic hypercapnic respiratory failure, BUN is 22, creatinine 0.46. Cardiac enzymes, proBNP, and LFTs were all within normal limits. Patient has been afebrile, she is slightly tachycardic with a heart rate in the low 100s, on presentation she was hypoxemic with a pulse ox of 81%. Her pulse ox right now is 93% on 50% FiO2. He remains tachypneic, with a respiratory rate in the 20s, and at times in the low 30s. Lung sounds are positive for breast sounds, and diffuse wheezes. Patient is awake and alert, she is very dyspneic with conversation, and is not able to provide lengthy answers. Patient was started on steroids, empiric antibiotics in the form of Levaquin, nebulized bronchodilators, and Symbicort. On 05/22/2018 patient seen in follow-up on selective care unit. She remains on BiPAP support, most of the time, she is able to show trials of nasal cannula for meals. For now she remains largely BiPAP dependent. Bronchospastic, and wheezy, not bringing up much sputum right now. Afebrile, vital signs are stable. IPAP settings of 12 and 4 and 50%. Denies any fever or chills. Today' s blood work was reviewed, the PVCs 9.4, he is 11.4, electrolytes are unremarkable, renal profile is stable, B1 is 21, creatinine 0.43. Continue current medical treatment, IV steroids, nebulized bronchodilators, Levaquin. On 05/23/2018 patient seen in follow-up on [facility] care unit. Is able to tolerate short trials on nasal cannula at 6 L/m, but most of the time she remains BiPAP dependent, at pressures 12 over 4, and 50% FiO2. Occasionally she is able to bring up some sputum, lung sounds remain quite bronchospastic, and short of breath with any activity. Patient is getting up to use the bedside commode, and that has been pretty much to extent of her activity. She is afebrile, hemodynamic with stable. Blood cultures are negative, she remains on high-dose steroids 60 mg every 6 hours, theophylline, Levaquin, nebulized bronchodilators, Pulmicort and Perforomist. We'll continue with current treatment. On 05/24/2018 patient seen in follow-up. Breathing little easier today, still has some diffuse wheezes, remains on BiPAP, has been able to come off for short periods of time. Vital signs are stable, she is afebrile. No new chest x-rays or lab work today. Overall patient is improving. We'll continue current medical treatment, cultures remain negative. On 05/25/2018 patient seen in follow-up on selective care unit, currently on nasal cannula at 6 L per high flow nasal cannula, patient is on BiPAP at night, and intermittently through the day. Lung sounds are positive for sounds, with scattered wheezes, prolongation of expiratory phase, overall improved since admission, at times patient will have coughing spells, and she is able to clear some thick phlegm. Microbiology remains negative, patient remains on high-dose steroids, empiric antibiotics, nebulized bronchodilators. She is improving, we will decrease her steroids to 40 mg every 8 hours, continue with the same medical treatment, anticipate discharge possibly in the next 24 hours. On May 26, 2018 patient seen in follow-up on [facility] care unit, she states she is having more trouble breathing today, increased chest tightness, and she is staying on BiPAP most of the time. Diminished breath sounds, with end expiratory wheezing, he does work of breathing seems to have increased. We will increase the Solu-Medrol back to 60 mg every 6 hours, patient remains afebrile, hemodynamically stable, she is coming off the BiPAP for meals only. He continues on empiric antibiotic coverage, and theophylline in addition to cough syrup, and nebulized bronchodilators around the clock. Blood cultures are negative, no fever or chills. On 05/28/2018 patient seen in follow-up on selective care unit, remains for the most part BiPAP dependent, is only able to tolerate short intervals on nasal cannula, long enough to eat. Lung sounds reveal diminished breath sounds, less wheezing noted on today's exam. Afebrile. Blood cultures remain negative, and very dyspneic even at rest, and with any exertion. Today's labs were noted, the he is 11.3, hemoglobin is 10.9, sodium is 141, potassium is 4.7, chloride is 97, CO2 is 40, B1 is 44, creatinine 0.43. We'll continue current medical treatment, patient is slow to improve. Objective - Vital Signs Vital signs: Vital Signs Temp 97.4 F L 05/28/18 07:55 Pulse 90 05/28/18 08:35 Resp 25 H 05/28/18 08:13 BP 155/97 05/28/18 07:55 Pulse Ox 96 05/28/18 08:13 Intake & Output 05/27/18 05/28/18 05/28/18 18:59 06:59 18:59 Intake Total 1500 360 Balance 1500 360 Weight 51.5 kg Intake: IV 900 Sodium Chloride 0.9% 1, 900 000 ml @ 100 mls/hr IV . Q10H [facility] Rx#:[id number] Oral 600 360 Other: # Voids 1 3 2 - Exam GENERAL EXAM: Alert, cachectic 47-year-old white female, appears older than stated age on nasal cannula, on BiPAP support, patient is using accessory muscles of breathing, she is complaining of increased shortness of breath and chest tightness HEAD: Normocephalic/atraumatic. EYES: Normal reaction of pupils, equal size. Conjunctiva pink, sclera white. NOSE: Clear with pink turbinates. THROAT: No erythema or exudates. NECK: No masses, no JVD, no thyroid enlargement, no adenopathy. CHEST: No chest wall deformity. Symmetrical expansion. LUNGS: Decreased breath sounds, with faint wheezes CVS: Regular rate and rhythm, normal S1 and S2, no gallops, no murmurs, no rubs ABDOMEN: Soft, nontender. No hepatosplenomegaly, normal bowel sounds, no guarding or rigidity. EXTREMITIES: No clubbing, no edema, no cyanosis, 2+ pulses and upper and lower extremities. MUSCULOSKELETAL: Muscle strength and tone normal. SPINE: No scoliosis or deformity SKIN: No rashes CENTRAL NERVOUS SYSTEM: Alert and oriented -3. No focal deficits, tone is normal in all 4 extremities. PSYCHIATRIC: Alert and oriented -3. Appropriate affect. Intact judgment and insight. - Labs CBC & Chem 7: 05/28/18 05:53 05/28/18 05:53 Labs: Abnormal Lab Results - Last 24 Hours (Table) 05/27/18 05/27/18 05/27/18 Range/Units 11:36 16:33 20:57 WBC (3.8-10.6) k/uL Hgb (11.4-16.0) gm/dL MCH (25.0-35.0) pg MCHC (31.0-37.0) g/dL RDW (11.5-15.5) % Neutrophils # (1.3-7.7) k/uL Lymphocytes # (1.0-4.8) k/uL Chloride (98-107) mmol/L Carbon Dioxide (22-30) mmol/L BUN (7-17) mg/dL Creatinine (0.52-1.04) mg/dL Glucose (74-99) mg/dL POC Glucose (mg/dL) 176 H 184 H 224 H (75-99) mg/dL 05/28/18 05/28/18 05/28/18 Range/Units 05:53 05:53 06:03 WBC 11.3 H (3.8-10.6) k/uL Hgb 10.9 L (11.4-16.0) gm/dL MCH 23.9 L (25.0-35.0) pg MCHC 29.5 L (31.0-37.0) g/dL RDW 16.8 H (11.5-15.5) % Neutrophils # 10.1 H (1.3-7.7) k/uL Lymphocytes # 0.6 L (1.0-4.8) k/uL Chloride 97 L (98-107) mmol/L Carbon Dioxide 40 H (22-30) mmol/L BUN 44 H (7-17) mg/dL Creatinine 0.43 L (0.52-1.04) mg/dL Glucose 152 H (74-99) mg/dL POC Glucose (mg/dL) 154 H (75-99) mg/dL Assessment and Plan Plan: Assessment #1. Acute on chronic hypoxemic respiratory failure secondary to acute exacerbation of chronic obstructive pulmonary disease. Chest x-ray was reviewed , and showed no acute cardiopulmonary process #2. Chronic hypercapnic respiratory failure secondary to advanced COPD, patient has AVAPS ventilator at home #3. Chronic and ongoing nicotine dependence, down to 2 cigarettes a day #4. Recurrent hospitalization for respiratory complications did to COPD #5. Coronary artery disease and previous myocardial infarction #6. Previous episodes of pneumonia #7. Severe cachexia and debility Plan: Patient is slow to improve, still quite dyspneic with any exertion and at rest. His able to come off the BiPAP for meals. We'll continue the Solu-Medrol to 60 mg every 6 hours. Continue all other medical treatments, continue nebulized bronchodilators around the clock, Pulmicort and Perforomist, empiric antibiotic coverage. Theophylline. Continue nebulized bronchodilators. I performed a history & physical examination of the patient and discussed their management with my nurse practitioner, Elida Agarwal. I reviewed the nurse practitioner's note and agree with the documented findings and plan of care. Lung sounds are positive for diffuse wheezes throughout the lung cagle. The findings and the impression was discussed with the patient. I attest to the documentation by the nurse practitioner. Time with Patient: Less than 30
[2018-05-28 11:43] LABS: Glucose,Whole Blood 182 mg/dL (75-99)
[2018-05-28] MEDS: ALPRAZolam 0.25 MG TAB PO PRN (14:14)
--- NOTE | 2018-05-28 14:17 | P.PN ---
Subjective Progress Note Date: 05/28/18 I'm dictating for Dr. Kaur Interval history: This a 47-year-old female admitted with acute COPD exacerbation, acute on chronic hypercapnic respiratory failure and multiple other medical issues. Maintained on nebulized bronchodilators, Patient was admitted to the inpatient unit and was started on IV steroids and antibiotics. Breathing continue to worse today, very discogenic even at rest and minimal exertion ,BiPAP dependent, only off for meals. Afebrile, cultures negative. Denies chest pain, palpitations. Patient is very slow to improve Objective - Vital Signs Vital signs: Vital Signs Temp 97.2 F L 05/28/18 12:00 Pulse 78 05/28/18 12:00 Resp 18 05/28/18 12:00 BP 105/85 05/28/18 12:00 Pulse Ox 98 05/28/18 12:00 Intake & Output 05/27/18 05/28/18 05/28/18 18:59 06:59 18:59 Intake Total 1500 600 Balance 1500 600 Weight 51.5 kg Intake: IV 900 Sodium Chloride 0.9% 1, 900 000 ml @ 100 mls/hr IV . Q10H [place] Rx#:[id number] Oral 600 600 Other: # Voids 1 3 2 - Exam PHYSICAL EXAM: VITAL SIGNS: As above GENERAL: Sitting up in bed, cachexic, wearing BiPAP, respiratory effort increased with accessory muscle use HEENT: Conjunctivae normal. eyes normal. NECK: No JVD. No thyroid enlargement. No LNs CARDIOVASCULAR: S1, S2 muffled. No murmur RESPIRATION: Breath sounds diminished in the bases. Scattered expiratory wheezing ABDOMEN: Soft, nontender . No guarding. no masses palpable.Bowel sounds heard. LEGS: No edema. no swelling PSYCHIATRY: Alert and oriented -3, mood and affect normal. NERVOUS SYSTEM: Cranial N 2-12 grossly normal. Moves all 4 limbs. Diffuse weakness No focal deficits. No sensory deficit. Skin: no rash Joints: No active swelling. No inflammation. Lymphatic system. No LN neck axilla or groin. Active Medications Hydrocodone Bitart/Acetaminophen ([place] 5-325) 1 each PO Q6HR PRN PRN Reason: Moderate Pain Last Admin: 05/24/18 06:21 Dose: 1 each Albuterol/Ipratropium (Duoneb 0.5 Mg-3 Mg/3 Ml Soln) 3 ml INHALATION RT-Q4H [facility] Last Admin: 05/28/18 11:47 Dose: 3 ml Albuterol/Ipratropium (Duoneb 0.5 Mg-3 Mg/3 Ml Soln) 3 ml INHALATION RT-Q2H PRN PRN Reason: Shortness Of Breath Or Wheezing Last Admin: 05/26/18 09:59 Dose: 3 ml Alprazolam (Xanax) 0.25 mg PO Q8HR PRN PRN Reason: Anxiety Last Admin: 05/27/18 11:58 Dose: 0.25 mg Budesonide (Pulmicort) 1 mg INHALATION RT-BID [facility] Last Admin: 05/28/18 08:13 Dose: 1 mg Bupropion HCl (Wellbutrin Sr) 150 mg PO HS [facility] Last Admin: 05/27/18 22:07 Dose: 150 mg Formoterol Fumarate (Perforomist) 20 mcg INHALATION RT-BID [facility] Last Admin: 05/28/18 08:13 Dose: 20 mcg Guaifenesin/Dextromethorphan (Robitussin Dm) 10 ml PO Q6H PRN PRN Reason: Cough Last Admin: 05/25/18 16:30 Dose: 10 ml Hydralazine HCl (Apresoline) 25 mg PO TID [facility] Last Admin: 05/28/18 09:09 Dose: 25 mg Hydromorphone HCl (Dilaudid) 0.5 mg IVP Q6HR PRN PRN Reason: Severe Pain Last Admin: 05/28/18 10:09 Dose: 0.5 mg Insulin Aspart (Novolog) 0 unit SQ [facility]; Protocol Last Admin: 05/28/18 12:17 Dose: 2 unit Levofloxacin (Levaquin) 750 mg PO DAILY [facility] Last Admin: 05/28/18 09:09 Dose: 750 mg Methylprednisolone Sodium Succinate (Solu-Medrol) 60 mg IV Q6HR [facility] Last Admin: 05/28/18 12:17 Dose: 60 mg Metoprolol Tartrate (Lopressor) 12.5 mg PO BID [facility] Last Admin: 05/28/18 09:09 Dose: 12.5 mg Pantoprazole Sodium (Protonix) 40 mg PO DAILY@0730 [facility] Last Admin: 05/28/18 06:35 Dose: 40 mg Pregabalin (Lyrica) 150 mg PO BID [facility] Last Admin: 05/28/18 09:09 Dose: 150 mg Risperidone (Risperdal) 3 mg PO HS [facility] Last Admin: 05/27/18 22:07 Dose: 3 mg Theophylline (Akhil-24) 200 mg PO BID [facility] Last Admin: 05/28/18 09:09 Dose: 200 mg Trazodone HCl (Desyrel) 300 mg PO HS [facility] Last Admin: 05/27/18 22:07 Dose: 300 mg Verapamil HCl (Isoptin Sr) 240 mg PO DAILY [facility] Last Admin: 05/28/18 09:11 Dose: 240 mg - Labs CBC & Chem 7: 05/28/18 05:53 05/28/18 05:53 Labs: Abnormal Lab Results - Last 24 Hours (Table) 05/27/18 05/27/18 05/28/18 Range/Units 16:33 20:57 05:53 WBC 11.3 H (3.8-10.6) k/uL Hgb 10.9 L (11.4-16.0) gm/dL MCH 23.9 L (25.0-35.0) pg MCHC 29.5 L (31.0-37.0) g/dL RDW 16.8 H (11.5-15.5) % Neutrophils # 10.1 H (1.3-7.7) k/uL Lymphocytes # 0.6 L (1.0-4.8) k/uL Chloride (98-107) mmol/L Carbon Dioxide (22-30) mmol/L BUN (7-17) mg/dL Creatinine (0.52-1.04) mg/dL Glucose (74-99) mg/dL POC Glucose (mg/dL) 184 H 224 H (75-99) mg/dL 05/28/18 05/28/18 05/28/18 Range/Units 05:53 06:03 11:36 WBC (3.8-10.6) k/uL Hgb (11.4-16.0) gm/dL MCH (25.0-35.0) pg MCHC (31.0-37.0) g/dL RDW (11.5-15.5) % Neutrophils # (1.3-7.7) k/uL Lymphocytes # (1.0-4.8) k/uL Chloride 97 L (98-107) mmol/L Carbon Dioxide 40 H (22-30) mmol/L BUN 44 H (7-17) mg/dL Creatinine 0.43 L (0.52-1.04) mg/dL Glucose 152 H (74-99) mg/dL POC Glucose (mg/dL) 154 H 182 H (75-99) mg/dL Assessment and Plan Assessment: 1. Acute COPD exacerbation 2. Acute on chronic hypoxic, hypercapnic respiratory failure secondary to the above; home ventilator-AVAPS 3. CAD, history of CA 4. Continued, Ongoing nicotine dependence 5. Medical debility 6. Previous episodes of pneumonia 7. Moderate to severe 8. Physical debility 9. Hyperlipidemia 10. Osteoarthritis 11. GERD 12. History of cervical cancer Plan: ontinue on current medication regime ,monitoring and symptomatic treatment. Maintain ATC nebulized bronchodilators, steroids, antibiotics. Steroids dose increased today. Continue GI and DVT prophylaxis Follow closely with pulmonary. Prognosis guarded given multiple complex medical issues. Monitor patient closely , further plans based on her clinical course. The impression and plan of care has been dictated as directed. : I performed a history and examination of this patient, discussed the same with the dictator. I agree with the dictator's note ,documented as a scribe. Any additional findings or plans will be noted.
[2018-05-28 16:57] LABS: Glucose,Whole Blood 143 mg/dL (75-99)
[2018-05-28 20:50] LABS: Glucose,Whole Blood 211 mg/dL (75-99)
[2018-05-28] MEDS: risperiDONE 1 MG TAB PO SCH (21:15)
[2018-05-28] MEDS: buPROPion SR 150 MG TABLET.ER PO SCH (21:16)
[2018-05-28] MEDS: traZODone HCL 100 MG TAB PO SCH (21:16)
[2018-05-29] MEDS: IPRATROPIUM-ALBUTEROL 3 ML NEB INHALATION SCH ×7 (00:20→23:57)
[2018-05-29] MEDS: HYDROmorphone 1 MG/ML 1 ML SYRINGE IVP PRN ×4 (04:37→21:10)
[2018-05-29] MEDS: FORMOTEROL FUMARATE 20 MCG/2 ML NEBU INHALATION SCH ×2 (07:02→20:21)
[2018-05-29] MEDS: BUDESONIDE 1 MG/2 ML NEBU INHALATION SCH ×2 (07:02→20:21)
[2018-05-29 07:06] LABS: Glucose,Whole Blood 141 mg/dL (75-99)
[2018-05-29 07:51] LABS: Anion Gap 5 mmol/L; Blood Urea Nitrogen 33 mg/dL (7-17); Calcium 9.9 mg/dL (8.4-10.2); Carbon Dioxide 39 mmol/L (22-30); Chloride 96 mmol/L (98-107); Glucose 132 mg/dL (74-99); Sodium 140 mmol/L (137-145)
[2018-05-29 08:35] LABS: Anisocytosis Slight; Basophils % (A) 0 %; Eosinophils % (A) 0 %; HCT 38.5 % (34.0-46.0); HGB 11.9 gm/dL (11.4-16.0); Hypochromasia Moderate; Lymphocytes # (A) 0.7 k/uL (1.0-4.8); Lymphocytes % (A) 5 %; MCH 24.4 pg (25.0-35.0); MCHC 30.8 g/dL (31.0-37.0); Microcytosis Slight; Monocytes # (A) 0.5 k/uL (0-1.0); Monocytes % (A) 4 %; Neutrophils # (A) 11.7 k/uL (1.3-7.7); Neutrophils % (A) 89 %; Platelet Count 444 k/uL (150-450); RBC 4.87 m/uL (3.80-5.40); RDW 16.8 % (11.5-15.5)
[2018-05-29] MEDS: INSULIN ASPART 100 UNIT/ML 1 ML 10 ML VIAL SQ SCH ×4 (09:15→21:16)
[2018-05-29] MEDS: PANTOPRAZOLE 40 MG TABLET PO SCH (09:16)
[2018-05-29] MEDS: methylPREDNISolone SOD SUCCI 125 MG/2 ML VIAL IV SCH (09:16)
[2018-05-29] MEDS: VERAPAMIL SR 240 MG TABLET.ER PO SCH (09:17)
[2018-05-29] MEDS: THEOPHYLLINE 24 HOUR 200 MG CAP.ER.24H PO SCH ×2 (09:17→21:09)
[2018-05-29] MEDS: LEVOFLOXACIN 750 MG TAB PO SCH (09:17)
[2018-05-29] MEDS: METOPROLOL TARTRATE 12.5 MG TAB PO SCH ×2 (09:17→21:09)
[2018-05-29] MEDS: hydrALAZINE HCL 25 MG TAB PO SCH ×2 (09:28→15:49)
[2018-05-29] MEDS: PREGABALIN 75 MG CAP PO SCH ×2 (09:28→21:14)
--- NOTE | 2018-05-29 11:17 | P.PN ---
Subjective Progress Note Date: 05/29/18 Principal diagnosis: Acute on chronic hypercapnic respiratory failure secondary to acute exacerbation of chronic obstructive pulmonary disease. This is a 47-year-old white female patient of Dr. John, who also follows with Dr. Molina in the pulmonary office for her end-stage COPD, with chronic actinic respiratory failure, prednisone dependent, on AVAPS ventilator for chronic hypercapnic respiratory failure. Patient has had multiple hospitalizations for recurrent pulmonary complications related to COPD. Unfortunately she continues to smoke, she states she is currently down to 2 cigarettes a day. She is on a combination of Symbicort, increased, theophylline , and nebulized treatments around the clock. She is on AVAPS at home to support her breathing based on her recurrent hospitalizations and COPD exacerbations. Today she presented with complaints of worsening shortness of breath, cough, with production of yellow sputum. Chest x-ray was completed and it showed no acute cardiopulmonary process. This was reviewed by Dr. Lino. She was placed on BiPAP support, with pressures 12 over 4, and 50%. Blood work showed WBC of 13.3, hemoglobin of 12.0, d-dimer was within normal limits, electrolytes were essentially unremarkable, the CO2 of 34, indicating chronic hypercapnic respiratory failure, BUN is 22, creatinine 0.46. Cardiac enzymes, proBNP, and LFTs were all within normal limits. Patient has been afebrile, she is slightly tachycardic with a heart rate in the low 100s, on presentation she was hypoxemic with a pulse ox of 81%. Her pulse ox right now is 93% on 50% FiO2. He remains tachypneic, with a respiratory rate in the 20s, and at times in the low 30s. Lung sounds are positive for breast sounds, and diffuse wheezes. Patient is awake and alert, she is very dyspneic with conversation, and is not able to provide lengthy answers. Patient was started on steroids, empiric antibiotics in the form of Levaquin, nebulized bronchodilators, and Symbicort. On 05/22/2018 patient seen in follow-up on selective care unit. She remains on BiPAP support, most of the time, she is able to show trials of nasal cannula for meals. For now she remains largely BiPAP dependent. Bronchospastic, and wheezy, not bringing up much sputum right now. Afebrile, vital signs are stable. IPAP settings of 12 and 4 and 50%. Denies any fever or chills. Today' s blood work was reviewed, the PVCs 9.4, he is 11.4, electrolytes are unremarkable, renal profile is stable, B1 is 21, creatinine 0.43. Continue current medical treatment, IV steroids, nebulized bronchodilators, Levaquin. On 05/23/2018 patient seen in follow-up on [facility] care unit. Is able to tolerate short trials on nasal cannula at 6 L/m, but most of the time she remains BiPAP dependent, at pressures 12 over 4, and 50% FiO2. Occasionally she is able to bring up some sputum, lung sounds remain quite bronchospastic, and short of breath with any activity. Patient is getting up to use the bedside commode, and that has been pretty much to extent of her activity. She is afebrile, hemodynamic with stable. Blood cultures are negative, she remains on high-dose steroids 60 mg every 6 hours, theophylline, Levaquin, nebulized bronchodilators, Pulmicort and Perforomist. We'll continue with current treatment. On 05/24/2018 patient seen in follow-up. Breathing little easier today, still has some diffuse wheezes, remains on BiPAP, has been able to come off for short periods of time. Vital signs are stable, she is afebrile. No new chest x-rays or lab work today. Overall patient is improving. We'll continue current medical treatment, cultures remain negative. On 05/25/2018 patient seen in follow-up on selective care unit, currently on nasal cannula at 6 L per high flow nasal cannula, patient is on BiPAP at night, and intermittently through the day. Lung sounds are positive for sounds, with scattered wheezes, prolongation of expiratory phase, overall improved since admission, at times patient will have coughing spells, and she is able to clear some thick phlegm. Microbiology remains negative, patient remains on high-dose steroids, empiric antibiotics, nebulized bronchodilators. She is improving, we will decrease her steroids to 40 mg every 8 hours, continue with the same medical treatment, anticipate discharge possibly in the next 24 hours. On May 26, 2018 patient seen in follow-up on [facility] care unit, she states she is having more trouble breathing today, increased chest tightness, and she is staying on BiPAP most of the time. Diminished breath sounds, with end expiratory wheezing, he does work of breathing seems to have increased. We will increase the Solu-Medrol back to 60 mg every 6 hours, patient remains afebrile, hemodynamically stable, she is coming off the BiPAP for meals only. He continues on empiric antibiotic coverage, and theophylline in addition to cough syrup, and nebulized bronchodilators around the clock. Blood cultures are negative, no fever or chills. On 05/28/2018 patient seen in follow-up on selective care unit, remains for the most part BiPAP dependent, is only able to tolerate short intervals on nasal cannula, long enough to eat. Lung sounds reveal diminished breath sounds, less wheezing noted on today's exam. Afebrile. Blood cultures remain negative, and very dyspneic even at rest, and with any exertion. Today's labs were noted, the he is 11.3, hemoglobin is 10.9, sodium is 141, potassium is 4.7, chloride is 97, CO2 is 40, B1 is 44, creatinine 0.43. We'll continue current medical treatment, patient is slow to improve. May 2018 patient seen in follow-up on selective care unit. BiPAP support, she is on high flow nasal cannula at 6 L per minute, her pulse ox 93%, she is afebrile, hemodynamically stable, lung sounds are generally diminished, with faint expiratory wheezes. Patient states chest tightness has improved, she is breathing easier, and is able to stay off the BiPAP for longer. Cultures remain negative. Today's labs have been noted, we'll decrease the dose of IV Solu-Medrol to 40 every 8 hours, increase activity as tolerated, possible discharge in next 24 hours provided patient continues to improve. Objective - Vital Signs Vital signs: Vital Signs Temp 97.6 F 05/29/18 08:00 Pulse 73 05/29/18 11:09 Resp 20 05/29/18 08:00 BP 147/85 05/29/18 08:00 Pulse Ox 93 L 05/29/18 08:00 Intake & Output 05/28/18 05/29/18 05/29/18 18:59 06:59 18:59 Intake Total 840 500 Balance 840 500 Intake: Oral 840 500 Other: # Voids 1 1 - Exam GENERAL EXAM: Alert, cachectic 47-year-old white female, appears older than stated age on nasal cannula, on 6 L per high flow nasal cannula. HEAD: Normocephalic/atraumatic. EYES: Normal reaction of pupils, equal size. Conjunctiva pink, sclera white. NOSE: Clear with pink turbinates. THROAT: No erythema or exudates. NECK: No masses, no JVD, no thyroid enlargement, no adenopathy. CHEST: No chest wall deformity. Symmetrical expansion. LUNGS: Decreased breath sounds, with faint wheezes CVS: Regular rate and rhythm, normal S1 and S2, no gallops, no murmurs, no rubs ABDOMEN: Soft, nontender. No hepatosplenomegaly, normal bowel sounds, no guarding or rigidity. EXTREMITIES: No clubbing, no edema, no cyanosis, 2+ pulses and upper and lower extremities. MUSCULOSKELETAL: Muscle strength and tone normal. SPINE: No scoliosis or deformity SKIN: No rashes CENTRAL NERVOUS SYSTEM: Alert and oriented -3. No focal deficits, tone is normal in all 4 extremities. PSYCHIATRIC: Alert and oriented -3. Appropriate affect. Intact judgment and insight. - Labs CBC & Chem 7: 05/29/18 07:10 05/29/18 07:10 Labs: Abnormal Lab Results - Last 24 Hours (Table) 05/28/18 05/28/18 05/28/18 Range/Units 11:36 16:47 20:48 WBC (3.8-10.6) k/uL MCV (80.0-100.0) fL MCH (25.0-35.0) pg MCHC (31.0-37.0) g/dL RDW (11.5-15.5) % Neutrophils # (1.3-7.7) k/uL Lymphocytes # (1.0-4.8) k/uL Chloride (98-107) mmol/L Carbon Dioxide (22-30) mmol/L BUN (7-17) mg/dL Creatinine (0.52-1.04) mg/dL Glucose (74-99) mg/dL POC Glucose (mg/dL) 182 H 143 H 211 H (75-99) mg/dL 05/29/18 05/29/18 05/29/18 Range/Units 06:54 07:10 07:10 WBC 13.0 H (3.8-10.6) k/uL MCV 79.0 L (80.0-100.0) fL MCH 24.4 L (25.0-35.0) pg MCHC 30.8 L (31.0-37.0) g/dL RDW 16.8 H (11.5-15.5) % Neutrophils # 11.7 H (1.3-7.7) k/uL Lymphocytes # 0.7 L (1.0-4.8) k/uL Chloride 96 L (98-107) mmol/L Carbon Dioxide 39 H (22-30) mmol/L BUN 33 H (7-17) mg/dL Creatinine 0.37 L (0.52-1.04) mg/dL Glucose 132 H (74-99) mg/dL POC Glucose (mg/dL) 141 H (75-99) mg/dL Assessment and Plan Plan: Assessment #1. Acute on chronic hypoxemic respiratory failure secondary to acute exacerbation of chronic obstructive pulmonary disease. Chest x-ray was reviewed , and showed no acute cardiopulmonary process #2. Chronic hypercapnic respiratory failure secondary to advanced COPD, patient has AVAPS ventilator at home #3. Chronic and ongoing nicotine dependence, down to 2 cigarettes a day #4. Recurrent hospitalization for respiratory complications did to COPD #5. Coronary artery disease and previous myocardial infarction #6. Previous episodes of pneumonia #7. Severe cachexia and debility Plan: Last chest tightness, less wheezing and congestion. We'll decreased the dose of IV Solu-Medrol 40 mg every 8 hours, continue with all other medical treatments, Levaquin, nebulized bronchodilators. Increase activity as tolerated , possible discharge home in next 24 hours, provided patient continues to improve. I performed a history & physical examination of the patient and discussed their management with my nurse practitioner, Elida Agarwal. I reviewed the nurse practitioner's note and agree with the documented findings and plan of care. Lung sounds are positive for diffuse wheezes throughout the lung cagle. The findings and the impression was discussed with the patient. I attest to the documentation by the nurse practitioner. Time with Patient: Less than 30
[2018-05-29 11:30] LABS: Glucose,Whole Blood 116 mg/dL (75-99)
--- NOTE | 2018-05-29 11:43 | P.PN ---
Subjective Patient resting in bed off of BiPAP on interview. States she's improving. Pulmonology will attempt to wean steroid Objective - Vital Signs Vital signs: Vital Signs Temp 97.6 F 05/29/18 08:00 Pulse 73 05/29/18 11:09 Resp 20 05/29/18 08:00 BP 147/85 05/29/18 08:00 Pulse Ox 93 L 05/29/18 08:00 Intake & Output 05/28/18 05/29/18 05/29/18 18:59 06:59 18:59 Intake Total 840 500 Balance 840 500 Intake: Oral 840 500 Other: # Voids 1 1 - Constitutional General appearance: Present: thin - EENT Eyes: Present: PERRLA Ears: bilateral: normal - Neck Neck: Present: normal ROM - Respiratory Respiratory: bilateral: diminished - Cardiovascular Rhythm: regular - Gastrointestinal General gastrointestinal: Present: soft - Integumentary Integumentary: Present: normal - Neurologic Neurologic: Present: CNII-XII intact - Musculoskeletal Musculoskeletal: Present: generalized weakness - Psychiatric Psychiatric: Present: A&O x's 3, appropriate affect, intact judgment & insight - Labs CBC & Chem 7: 05/29/18 07:10 05/29/18 07:10 Labs: Abnormal Lab Results - Last 24 Hours (Table) 05/28/18 05/28/18 05/28/18 Range/Units 11:36 16:47 20:48 WBC (3.8-10.6) k/uL MCV (80.0-100.0) fL MCH (25.0-35.0) pg MCHC (31.0-37.0) g/dL RDW (11.5-15.5) % Neutrophils # (1.3-7.7) k/uL Lymphocytes # (1.0-4.8) k/uL Chloride (98-107) mmol/L Carbon Dioxide (22-30) mmol/L BUN (7-17) mg/dL Creatinine (0.52-1.04) mg/dL Glucose (74-99) mg/dL POC Glucose (mg/dL) 182 H 143 H 211 H (75-99) mg/dL 05/29/18 05/29/18 05/29/18 Range/Units 06:54 07:10 07:10 WBC 13.0 H (3.8-10.6) k/uL MCV 79.0 L (80.0-100.0) fL MCH 24.4 L (25.0-35.0) pg MCHC 30.8 L (31.0-37.0) g/dL RDW 16.8 H (11.5-15.5) % Neutrophils # 11.7 H (1.3-7.7) k/uL Lymphocytes # 0.7 L (1.0-4.8) k/uL Chloride 96 L (98-107) mmol/L Carbon Dioxide 39 H (22-30) mmol/L BUN 33 H (7-17) mg/dL Creatinine 0.37 L (0.52-1.04) mg/dL Glucose 132 H (74-99) mg/dL POC Glucose (mg/dL) 141 H (75-99) mg/dL 05/29/18 Range/Units 11:29 WBC (3.8-10.6) k/uL MCV (80.0-100.0) fL MCH (25.0-35.0) pg MCHC (31.0-37.0) g/dL RDW (11.5-15.5) % Neutrophils # (1.3-7.7) k/uL Lymphocytes # (1.0-4.8) k/uL Chloride (98-107) mmol/L Carbon Dioxide (22-30) mmol/L BUN (7-17) mg/dL Creatinine (0.52-1.04) mg/dL Glucose (74-99) mg/dL POC Glucose (mg/dL) 116 H (75-99) mg/dL Assessment and Plan Plan: Assessment Acute on chronic hypoxic respiratory failure secondary to acute exacerbation of chronic COPD Chronic hypercapnic arrest or a failure secondary to advanced COPD Chronic ongoing nicotine dependence discussed with patient Recurrent hospitalization for rest. Complications secondary to COPD History of coronary disease with previous [facility] severe cachexia and debility moderate protein calorie deficiency malnutrition GERD Osteoarthritis with narcotic dependency Plan Continue consultation with a pulmonology Continues with steroids Pulmicort [place] M antibiotics bronchodilators
[2018-05-29] MEDS: ALPRAZolam 0.25 MG TAB PO PRN ×2 (12:27→21:08)
[2018-05-29] MEDS: methylPREDNISolone SOD SUCCI 40 MG/ML 1 ML VIAL IV SCH (15:50)
[2018-05-29 17:21] LABS: Glucose,Whole Blood 204 mg/dL (75-99)
[2018-05-29 20:28] LABS: Glucose,Whole Blood 310 mg/dL (75-99)
[2018-05-29] MEDS: traZODone HCL 100 MG TAB PO SCH (21:08)
[2018-05-29] MEDS: risperiDONE 1 MG TAB PO SCH (21:08)
[2018-05-29] MEDS: buPROPion SR 150 MG TABLET.ER PO SCH (21:09)
[2018-05-30] MEDS: methylPREDNISolone SOD SUCCI 40 MG/ML 1 ML VIAL IV SCH ×2 (02:15→08:02)
[2018-05-30] MEDS: HYDROcodone/APAP 5-325MG 1 EACH TAB PO PRN (02:15)
[2018-05-30] MEDS: hydrALAZINE HCL 25 MG TAB PO SCH ×2 (02:16→08:01)
[2018-05-30 03:35] VITALS: RESP 16
[2018-05-30] MEDS: IPRATROPIUM-ALBUTEROL 3 ML NEB INHALATION SCH ×3 (03:40→11:47)
[2018-05-30 05:47] LABS: Glucose,Whole Blood 144 mg/dL (75-99)
[2018-05-30] MEDS: HYDROmorphone 1 MG/ML 1 ML SYRINGE IVP PRN ×2 (05:47→10:52)
[2018-05-30] MEDS: INSULIN ASPART 100 UNIT/ML 1 ML 10 ML VIAL SQ SCH (05:50)
[2018-05-30] MEDS: PANTOPRAZOLE 40 MG TABLET PO SCH (05:54)
[2018-05-30] MEDS: PREGABALIN 75 MG CAP PO SCH (08:02)
[2018-05-30] MEDS: VERAPAMIL SR 240 MG TABLET.ER PO SCH (08:02)
[2018-05-30] MEDS: LEVOFLOXACIN 750 MG TAB PO SCH (08:02)
[2018-05-30] MEDS: THEOPHYLLINE 24 HOUR 200 MG CAP.ER.24H PO SCH (08:02)
[2018-05-30] MEDS: METOPROLOL TARTRATE 12.5 MG TAB PO SCH (08:02)
[2018-05-30 08:08] VITALS: BP 134/70; TEMP 98
[2018-05-30] MEDS: BUDESONIDE 1 MG/2 ML NEBU INHALATION SCH (08:08)
[2018-05-30] MEDS: FORMOTEROL FUMARATE 20 MCG/2 ML NEBU INHALATION SCH (08:08)
--- NOTE | 2018-05-30 10:21 | P.PN ---
Subjective Progress Note Date: 05/30/18 Principal diagnosis: Acute on chronic hypercapnic respiratory failure secondary to acute exacerbation of chronic obstructive pulmonary disease. This is a 47-year-old white female patient of Dr. John, who also follows with Dr. Molina in the pulmonary office for her end-stage COPD, with chronic actinic respiratory failure, prednisone dependent, on AVAPS ventilator for chronic hypercapnic respiratory failure. Patient has had multiple hospitalizations for recurrent pulmonary complications related to COPD. Unfortunately she continues to smoke, she states she is currently down to 2 cigarettes a day. She is on a combination of Symbicort, increased, theophylline , and nebulized treatments around the clock. She is on AVAPS at home to support her breathing based on her recurrent hospitalizations and COPD exacerbations. Today she presented with complaints of worsening shortness of breath, cough, with production of yellow sputum. Chest x-ray was completed and it showed no acute cardiopulmonary process. This was reviewed by Dr. Lino. She was placed on BiPAP support, with pressures 12 over 4, and 50%. Blood work showed WBC of 13.3, hemoglobin of 12.0, d-dimer was within normal limits, electrolytes were essentially unremarkable, the CO2 of 34, indicating chronic hypercapnic respiratory failure, BUN is 22, creatinine 0.46. Cardiac enzymes, proBNP, and LFTs were all within normal limits. Patient has been afebrile, she is slightly tachycardic with a heart rate in the low 100s, on presentation she was hypoxemic with a pulse ox of 81%. Her pulse ox right now is 93% on 50% FiO2. He remains tachypneic, with a respiratory rate in the 20s, and at times in the low 30s. Lung sounds are positive for breast sounds, and diffuse wheezes. Patient is awake and alert, she is very dyspneic with conversation, and is not able to provide lengthy answers. Patient was started on steroids, empiric antibiotics in the form of Levaquin, nebulized bronchodilators, and Symbicort. On 05/22/2018 patient seen in follow-up on selective care unit. She remains on BiPAP support, most of the time, she is able to show trials of nasal cannula for meals. For now she remains largely BiPAP dependent. Bronchospastic, and wheezy, not bringing up much sputum right now. Afebrile, vital signs are stable. IPAP settings of 12 and 4 and 50%. Denies any fever or chills. Today' s blood work was reviewed, the PVCs 9.4, he is 11.4, electrolytes are unremarkable, renal profile is stable, B1 is 21, creatinine 0.43. Continue current medical treatment, IV steroids, nebulized bronchodilators, Levaquin. On 05/23/2018 patient seen in follow-up on [facility] care unit. Is able to tolerate short trials on nasal cannula at 6 L/m, but most of the time she remains BiPAP dependent, at pressures 12 over 4, and 50% FiO2. Occasionally she is able to bring up some sputum, lung sounds remain quite bronchospastic, and short of breath with any activity. Patient is getting up to use the bedside commode, and that has been pretty much to extent of her activity. She is afebrile, hemodynamic with stable. Blood cultures are negative, she remains on high-dose steroids 60 mg every 6 hours, theophylline, Levaquin, nebulized bronchodilators, Pulmicort and Perforomist. We'll continue with current treatment. On 05/24/2018 patient seen in follow-up. Breathing little easier today, still has some diffuse wheezes, remains on BiPAP, has been able to come off for short periods of time. Vital signs are stable, she is afebrile. No new chest x-rays or lab work today. Overall patient is improving. We'll continue current medical treatment, cultures remain negative. On 05/25/2018 patient seen in follow-up on selective care unit, currently on nasal cannula at 6 L per high flow nasal cannula, patient is on BiPAP at night, and intermittently through the day. Lung sounds are positive for sounds, with scattered wheezes, prolongation of expiratory phase, overall improved since admission, at times patient will have coughing spells, and she is able to clear some thick phlegm. Microbiology remains negative, patient remains on high-dose steroids, empiric antibiotics, nebulized bronchodilators. She is improving, we will decrease her steroids to 40 mg every 8 hours, continue with the same medical treatment, anticipate discharge possibly in the next 24 hours. On May 26, 2018 patient seen in follow-up on [facility] care unit, she states she is having more trouble breathing today, increased chest tightness, and she is staying on BiPAP most of the time. Diminished breath sounds, with end expiratory wheezing, he does work of breathing seems to have increased. We will increase the Solu-Medrol back to 60 mg every 6 hours, patient remains afebrile, hemodynamically stable, she is coming off the BiPAP for meals only. He continues on empiric antibiotic coverage, and theophylline in addition to cough syrup, and nebulized bronchodilators around the clock. Blood cultures are negative, no fever or chills. On 05/28/2018 patient seen in follow-up on selective care unit, remains for the most part BiPAP dependent, is only able to tolerate short intervals on nasal cannula, long enough to eat. Lung sounds reveal diminished breath sounds, less wheezing noted on today's exam. Afebrile. Blood cultures remain negative, and very dyspneic even at rest, and with any exertion. Today's labs were noted, the he is 11.3, hemoglobin is 10.9, sodium is 141, potassium is 4.7, chloride is 97, CO2 is 40, B1 is 44, creatinine 0.43. We'll continue current medical treatment, patient is slow to improve. May 2018 patient seen in follow-up on selective care unit. BiPAP support, she is on high flow nasal cannula at 6 L per minute, her pulse ox 93%, she is afebrile, hemodynamically stable, lung sounds are generally diminished, with faint expiratory wheezes. Patient states chest tightness has improved, she is breathing easier, and is able to stay off the BiPAP for longer. Cultures remain negative. Today's labs have been noted, we'll decrease the dose of IV Solu-Medrol to 40 every 8 hours, increase activity as tolerated, possible discharge in next 24 hours provided patient continues to improve. On 05/30/2018 patient seen in follow-up on selective care unit. Continues to improve, was able to get up and take a shower this morning. 6 L per high flow nasal cannula, pulse ox is 97%, lung sounds are generally diminished, with faint few end expiratory wheezes, no significant congestion. Patient is pretty close to her baseline, signs remain stable, no acute events overnight, able to ambulate in the room, and tolerating activity well. She has a AVAPS machine at home, nebulizer machine. She is requesting to go home today. No fever, no chills, from pulmonary perspective patient is stable for discharge home today Objective - Vital Signs Vital signs: Vital Signs Temp 98 F 05/30/18 08:00 Pulse 72 05/30/18 08:28 Resp 16 05/30/18 08:00 BP 134/70 05/30/18 08:00 Pulse Ox 97 05/30/18 08:00 Intake & Output 05/29/18 05/30/18 05/30/18 18:59 06:59 18:59 Intake Total 620 Balance 620 Weight 53.5 kg Intake: Oral 620 Other: Voiding Method Bedside Commode Bedside Commode # Voids 1 - Exam GENERAL EXAM: Alert, cachectic 47-year-old white female, appears older than stated age on nasal cannula, on 6 L per high flow nasal cannula. HEAD: Normocephalic/atraumatic. EYES: Normal reaction of pupils, equal size. Conjunctiva pink, sclera white. NOSE: Clear with pink turbinates. THROAT: No erythema or exudates. NECK: No masses, no JVD, no thyroid enlargement, no adenopathy. CHEST: No chest wall deformity. Symmetrical expansion. LUNGS: Decreased breath sounds, with faint wheezes CVS: Regular rate and rhythm, normal S1 and S2, no gallops, no murmurs, no rubs ABDOMEN: Soft, nontender. No hepatosplenomegaly, normal bowel sounds, no guarding or rigidity. EXTREMITIES: No clubbing, no edema, no cyanosis, 2+ pulses and upper and lower extremities. MUSCULOSKELETAL: Muscle strength and tone normal. SPINE: No scoliosis or deformity SKIN: No rashes CENTRAL NERVOUS SYSTEM: Alert and oriented -3. No focal deficits, tone is normal in all 4 extremities. PSYCHIATRIC: Alert and oriented -3. Appropriate affect. Intact judgment and insight. - Labs CBC & Chem 7: 05/29/18 07:10 05/29/18 07:10 Labs: Abnormal Lab Results - Last 24 Hours (Table) 05/29/18 05/29/18 05/29/18 Range/Units 11:29 17:03 20:14 POC Glucose (mg/dL) 116 H 204 H 310 H (75-99) mg/dL 05/30/18 Range/Units 05:46 POC Glucose (mg/dL) 144 H (75-99) mg/dL Assessment and Plan Plan: Assessment #1. Acute on chronic hypoxemic respiratory failure secondary to acute exacerbation of chronic obstructive pulmonary disease. Chest x-ray was reviewed , and showed no acute cardiopulmonary process #2. Chronic hypercapnic respiratory failure secondary to advanced COPD, patient has AVAPS ventilator at home #3. Chronic and ongoing nicotine dependence, down to 2 cigarettes a day #4. Recurrent hospitalization for respiratory complications did to COPD #5. Coronary artery disease and previous myocardial infarction #6. Previous episodes of pneumonia #7. Severe cachexia and debility Plan: Patient continues to improve, overnight, bun is stable, she is tolerating ambulation, was able to get up and take a shower today. She stable for discharge home today, on prednisone taper, maintenance inhalers and nebulized treatments, she has completed 7 days of Levaquin, this can be discontinued at this time. I performed a history & physical examination of the patient and discussed their management with my nurse practitioner, Elida Agarwal. I reviewed the nurse practitioner's note and agree with the documented findings and plan of care. Lung sounds are positive generally diminished breath sounds, with a few scattered end expiratory wheezes. The findings and the impression was discussed with the patient. I attest to the documentation by the nurse practitioner. Time with Patient: Less than 30
[2018-05-30 11:58] VITALS: PULSE 71
--- NOTE | 2018-05-30 12:00 | P.DS ---
Providers Date of admission: 05/21/18 03:10 Expected date of discharge: 05/30/18 Attending physician: Italo John Consults: 05/21/18 03:06 Consult Physician Routine Consulting Provider: Kevon Molina Consult Reason/Comments: COPD exacerbation Do you want consulting provider notified?: Yes Primary care physician: Italo John Hospital Course: 47-year-old female presented the emergency room with complaints of shortness of breath. Patient does have a history of severe chronic COPD has been hospitalized on many occasions for exacerbation of COPD. Patient was seen by pulmonology and stabilized patient has been recently released for discharge home Assessment Acute on chronic hypoxic respiratory failure secondary to her exacerbation of COPD Chronic hypercapnia respiratory failure secondary to advanced COPD Nicotine dependence recurrent hospitalizations for respiratory complications secondary to COPD Coronary disease with previous IA Severe cachexia and debility moderate protein calorie deficiency with malnutrition GERD Osteoarthritis with narcotic dependence Plan Discharge home follow-up with Dr. Molina family physician Dr. Italo John Plan - Discharge Summary Discharge Rx Participant: No New Discharge Prescriptions: Continue Omeprazole [PriLOSEC] 40 mg PO BID Albuterol Inhaler [Ventolin Hfa Inhaler] 2 puff INHALATION RT-QID PRN PRN Reason: Shortness Of Breath risperiDONE 3 mg PO HS traZODone HCL 300 mg PO HS Budesonide-Formot 160-4.5 Mcg [Symbicort 160-4.5 Mcg Inhaler] 2 puff INHALATION RT-BID puff Theophylline 24 Hour [Akhil-24] 200 mg PO BID Pregabalin [Lyrica] 150 mg PO BID Fluticasone Nasal [place] [Flonase Nasal [place]] 2 spray EA NOSTRIL DAILY HYDROcodone/APAP 5-325MG [[place] 5-325] 1 tab PO BID Umeclidinium Martin [Incruse Ellipta] 1 puff INHALATION RT-DAILY Grant/D3/Mag11/Zinc/Liquefaction Supervisor/Gianni/Bor [Caltrate 600+D Plus Tablet] 1 tab PO DAILY buPROPion HCL [Wellbutrin SR] 150 mg PO HS Ipratropium Martin [Atrovent Hfa] 2 puff INHALATION RT-QID PRN PRN Reason: Shortness Of Breath Multivitamins, Thera [Multivitamin (formulary)] 1 tab PO DAILY@1200 Ipratropium-Albuterol Nebulize [Duoneb 0.5 mg-3 mg/3 ml Soln] 3 ml INHALATION RT-QID #0 neb predniSONE 20 mg PO DAILY #0 Ibuprofen [Motrin] 800 mg PO Q6H PRN PRN Reason: Pain hydrALAZINE HCL [Apresoline] 25 mg PO TID PRN 90 Days #90 tab PRN Reason: BP<150/90 Metoprolol Tartrate [Lopressor] 12.5 mg PO BID #60 tab Verapamil Sr [Isoptin Sr] 240 mg PO DAILY #30 tablet.er Discharge Medication List Albuterol Inhaler [Ventolin Hfa Inhaler] 2 puff INHALATION RT-QID PRN 01/03/14 [ History] Omeprazole [PriLOSEC] 40 mg PO BID 01/03/14 [History] risperiDONE 3 mg PO HS 12/24/14 [History] traZODone HCL 300 mg PO HS 12/24/14 [History] Budesonide-Formot 160-4.5 Mcg [Symbicort 160-4.5 Mcg Inhaler] 2 puff INHALATION RT-BID puff 07/13/16 [Rx] Theophylline 24 Hour [Akhil-24] 200 mg PO BID 07/06/17 [History] Fluticasone Nasal [place] [Flonase Nasal [place]] 2 spray EA NOSTRIL DAILY 12/21/17 [History] Pregabalin [Lyrica] 150 mg PO BID 12/21/17 [History] Grant/D3/Mag11/Zinc/Liquefaction Supervisor/Gianni/Bor [Caltrate 600+D Plus Tablet] 1 tab PO DAILY 03/13 [History] HYDROcodone/APAP 5-325MG [[place] 5-325] 1 tab PO BID 03/13/18 [History] Umeclidinium Martin [Incruse Ellipta] 1 puff INHALATION RT-DAILY 03/13/18 [ History] Ipratropium Martin [Atrovent Hfa] 2 puff INHALATION RT-QID PRN 03/25/18 [ History] Multivitamins, Thera [Multivitamin (formulary)] 1 tab PO DAILY@1200 03/25/18 [ History] buPROPion HCL [Wellbutrin SR] 150 mg PO HS 03/25/18 [History] Ipratropium-Albuterol Nebulize [Duoneb 0.5 mg-3 mg/3 ml Soln] 3 ml INHALATION RT -QID #0 neb 04/03/18 [Rx] predniSONE 20 mg PO DAILY #0 04/03/18 [Rx] Ibuprofen [Motrin] 800 mg PO Q6H PRN 05/21/18 [History] Metoprolol Tartrate [Lopressor] 12.5 mg PO BID #60 tab 05/30/18 [Rx] Verapamil Sr [Isoptin Sr] 240 mg PO DAILY #30 tablet.er 05/30/18 [Rx] hydrALAZINE HCL [Apresoline] 25 mg PO TID PRN 90 Days #90 tab 05/30/18 [Rx] Follow up Appointment(s)/Referral(s): Italo John MD [Primary Care Provider] - 05/30/18 10:20 am (Tuesday) Kevon Molina MD [STAFF PHYSICIAN] - 06/22/18 2:00 pm (TUESDAY) Patient Instructions/Handouts: COPD (Chronic Obstructive Pulmonary Disease) (DC )
--- NOTE | 2018-06-01 08:13 | ED ---
SOB HPI - General Chief Complaint: Shortness of Breath Stated Complaint: YOHANA Time Seen by Provider: 05/21/18 00:29 Source: patient Mode of arrival: ambulatory Limitations: no limitations - History of Present Illness Initial Comments: This patient's 47-year-old woman with history of COPD who presents to be evaluated for worsening of her usual COPD symptoms. She states that this been going on for 2-3 days now. She is having coughing, wheezing, chest tightness. She has tried her home medications and is not having much improvement. Patient denies chest pain. She is not having leg pain or swelling. MD Complaint: shortness of breath, cough Onset/Timin -: days(s) Consistency: constant Improves With: nothing Worsens With: nothing Known History Of: COPD Associated Symptoms: cough, sputum production Treatments Prior to Arrival: oxygen, bronchodilator - Related Data Home Medications Medication Instructions Recorded Confirmed Albuterol Inhaler [Ventolin Hfa 2 puff INHALATION RT-QID PRN 01/03/14 05/21/18 Inhaler] Omeprazole [PriLOSEC] 40 mg PO BID 01/03/14 05/21/18 risperiDONE 3 mg PO HS 12/24/14 05/21/18 traZODone HCL 300 mg PO HS 12/24/14 05/21/18 Theophylline 24 Hour [Akhil-24] 200 mg PO BID 07/06/17 05/21/18 Fluticasone Nasal [place] [Flonase 2 spray EA NOSTRIL DAILY 12/21/17 05/21/18 Nasal [place]] Pregabalin [Lyrica] 150 mg PO BID 12/21/17 05/21/18 Grant/D3/Mag11/Zinc/Sawmilling Operator/Gianni/Bor 1 tab PO DAILY 03/13/18 05/21/18 [Caltrate 600+D Plus Tablet] HYDROcodone/APAP 5-325MG [[place] 1 tab PO BID 03/13/18 05/21/18 5-325] Umeclidinium [place] [Incruse 1 puff INHALATION RT-DAILY 03/13/18 05/21/18 Ellipta] Ipratropium [place] [Atrovent Hfa] 2 puff INHALATION RT-QID PRN 03/25/18 Multivitamins, Thera [Multivitamin 1 tab PO DAILY@1200 03/25/18 05/21/18 (formulary)] buPROPion HCL [Wellbutrin SR] 150 mg PO HS 03/25/18 05/21/18 Ibuprofen [Motrin] 800 mg PO Q6H PRN 05/21/18 05/21/18 Previous Rx's Medication Instructions Recorded Budesonide-Formot 160-4.5 Mcg 2 puff INHALATION RT-BID puff 07/13/16 [Symbicort 160-4.5 Mcg Inhaler] Ipratropium-Albuterol Nebulize 3 ml INHALATION RT-QID #0 neb 04/03/18 [Duoneb 0.5 mg-3 mg/3 ml Soln] predniSONE 20 mg PO DAILY #0 04/03/18 Metoprolol Tartrate [Lopressor] 12.5 mg PO BID #60 tab 05/30/18 Verapamil Sr [Isoptin Sr] 240 mg PO DAILY #30 tablet.er 05/30/18 hydrALAZINE HCL [Apresoline] 25 mg PO TID PRN 90 Days #90 tab 05/30/18 Allergies Allergy/AdvReac Type Severity Reaction Status Date / Time aripiprazole [From Abilify] Allergy Rash/Hives Verified 05/21/18 11:45 cephalexin [From Keflex] Allergy Unknown Verified 05/21/18 11:45 honey Allergy Rash/Hives Verified 05/21/18 11:45 methadone [Methadone] Allergy Itching Verified 05/21/18 11:45 naproxen Allergy Rash/Hives Verified 05/21/18 11:45 sulfamethoxazole Allergy Rash/Hives Verified 05/21/18 11:45 [From Bactrim] tetracycline [Tetracycline] Allergy Rash/Hives Verified 05/21/18 11:45 trimethoprim [From Bactrim] Allergy Rash/Hives Verified 05/21/18 11:45 adhesive tape AdvReac Rash/Hives Verified 05/21/18 11:45 tramadol HCl [From Ultram] AdvReac SEIZURES Verified 05/21/18 11:45 tromethamine AdvReac Nausea & Verified 05/21/18 11:45 Vomiting Review of Systems ROS Statement: Those systems with pertinent positive or pertinent negative responses have been documented in the HPI. ROS Other: All systems not noted in ROS Statement are negative. Constitutional: Denies: fever, chills, weakness Respiratory: Reports: as per HPI, cough, dyspnea, wheezes. Denies: hemoptysis, stridor Cardiovascular: Reports: dyspnea on exertion. Denies: chest pain, palpitations , orthopnea, edema, syncope Gastrointestinal: Denies: abdominal pain, vomiting, diarrhea Genitourinary: Denies: dysuria, hematuria Musculoskeletal: Denies: back pain Skin: Denies: rash Neurological: Denies: headache, weakness, numbness Past Medical History Past Medical History: Cancer, Chest Pain / Angina, COPD, Eye Disorder, GERD/ Reflux, Hyperlipidemia, Osteoarthritis (OA), Pneumonia, Respiratory Disorder Additional Past Medical History / Comment(s): past thoracic spine fractures T8- T9, possible oseoporosis. End stage COPD , chronic hypoxic and hypercapnic respiratory failure, home O2 at 5-6L/NC and bipap at HS, steroid dependent, bronchitis, 1997 pt states she was told her EKG showed a past GA, cervical cancer with hysterectomy, PUD, carpal tunnel bilaterally, herniated discs C5-C6 and L5-L6, cervical/lumbar spondylosis, RLS, eczema, cataract L eye, tinnitis bilaterally, sinus problems. Last Myocardial Infarction Date:: UNK History of Any Multi-Drug Resistant Organisms: MRSA Date of last positivie culture/infection: 06/18/15 MDRO Source:: Sputum Past Surgical History: Section, Cholecystectomy, Ear Surgery, Hysterectomy, Tubal Ligation Additional Past Surgical History / Comment(s): x 2, EGD, colonoscopy with benign polypectomy, R ear cyst with surgery.. Past Anesthesia/Blood Transfusion Reactions: No Reported Reaction Additional Past Anesthesia/Blood Transfusion Reaction / Comment(s): Pt has never recieved blood. Past Psychological History: Anxiety, Bipolar, Depression Additional Psychological History / Comment(s): Pt resides with her son jessica. She normally performs her own ADLs. She has home O2. She has a nebulizer. She does not drive but her son takes her places. Relates that she is an ongoing tobacco smoker-last smoked one week ago and plans to be quit. She does not have experience. She has no international travels. Pt states she currently has no home care but has used [facility] in the past. Smoking Status: Current some day smoker Past Alcohol Use History: None Reported Additional Past Alcohol Use History / Comment(s): Pt started smoking in 1984. She states she smokes somedays 2 cig per week Past Drug Use History: None Reported Additional Drug Use History / Comment(s): MEDICAL MARIJUANA AND SMOKES DAILY. - Past Family History Father Family Medical History: No Reported History Additional Family Medical History / Comment(s): WAS AN ALCOHOLIC Mother Family Medical History: Cancer Additional Family Medical History / Comment(s): AT AGE 54-BOWEL CANCER General Exam Limitations: no limitations General appearance: alert, in distress Head exam: Present: atraumatic, normocephalic Eye exam: Present: normal appearance ENT exam: Present: normal oropharynx Neck exam: Present: normal inspection Respiratory exam: Present: respiratory distress, wheezes, accessory muscle use, decreased breath sounds, prolonged expiratory. Absent: rales, rhonchi, stridor , chest wall tenderness Cardiovascular Exam: Present: normal rhythm, tachycardia, normal heart sounds. Absent: systolic murmur, diastolic murmur, rubs, gallop GI/Abdominal exam: Present: soft. Absent: tenderness, guarding, rebound Extremities exam: Present: normal inspection, normal capillary refill. Absent: pedal edema, calf tenderness Back exam: Present: normal inspection. Absent: CVA tenderness (R), CVA tenderness (L) Neurological exam: Present: alert Skin exam: Present: warm, dry, intact, normal color. Absent: rash Course Vital Signs 05/21/18 05/21/18 05/21/18 00:23 01:04 01:12 Temperature 98.4 F Pulse Rate 135 H 123 H 124 H Pulse Rate [ Pulse Oximetery ] Respiratory 40 H Rate Blood Pressure 157/94 Blood Pressure [Left Arm] O2 Sat by Pulse 81 L Oximetry 05/21/18 05/21/18 05/21/18 01:36 02:00 03:00 Temperature Pulse Rate 118 H 118 H 110 H Pulse Rate [ Pulse Oximetery ] Respiratory 22 24 20 Rate Blood Pressure 152/87 135/95 134/88 Blood Pressure [Left Arm] O2 Sat by Pulse 96 97 98 Oximetry 05/21/18 05/21/18 05/21/18 03:37 03:49 04:00 Temperature 97.1 F L Pulse Rate 114 H 112 H 90 Pulse Rate [ 114 H Pulse Oximetery ] Respiratory 20 20 Rate Blood Pressure 144/85 Blood Pressure 192/88 [Left Arm] O2 Sat by Pulse 93 L 97 Oximetry Medical Decision Making - Medical Decision Making Patient's 47-year-old woman with exacerbation of her COPD symptoms. There does appear to also be a small infiltrate in the left lower lobe. Patient be admitted for antibiotic course and for further symptomatic treatment. - Lab Data Result diagrams: 05/29/18 07:10 05/29/18 07:10 Lab Results 05/21/18 05/21/18 05/21/18 Range/Units 00:35 00:35 00:35 WBC 13.3 H (3.8-10.6) k/uL RBC 4.95 (3.80-5.40) m/uL Hgb 12.0 (11.4-16.0) gm/dL Hct 40.0 (34.0-46.0) % MCV 80.8 (80.0-100.0) fL MCH 24.2 L (25.0-35.0) pg MCHC 30.0 L (31.0-37.0) g/dL RDW 17.0 H (11.5-15.5) % Plt Count 564 H (150-450) k/uL Neutrophils % 78 % Lymphocytes % 16 % Monocytes % 5 % Eosinophils % 1 % Basophils % 0 % Neutrophils # 10.4 H (1.3-7.7) k/uL Lymphocytes # 2.1 (1.0-4.8) k/uL Monocytes # 0.6 (0-1.0) k/uL Eosinophils # 0.1 (0-0.7) k/uL Basophils # 0.0 (0-0.2) k/uL Hypochromasia Marked Anisocytosis Slight PT (9.0-12.0) sec INR (<1.2) APTT (22.0-30.0) sec D-Dimer (<0.60) mg/L FEU Sodium 142 (137-145) mmol/L Potassium 4.2 (3.5-5.1) mmol/L Chloride 103 (98-107) mmol/L Carbon Dioxide 34 H (22-30) mmol/L Anion Gap 5 mmol/L BUN 22 H (7-17) mg/dL Creatinine 0.46 L (0.52-1.04) mg/dL Est GFR (CKD-EPI)AfAm >90 (>60 ml/min/1.73 sqM) Est GFR (CKD-EPI)NonAf >90 (>60 ml/min/1.73 sqM) Glucose 127 H (74-99) mg/dL Calcium 9.8 (8.4-10.2) mg/dL Total Bilirubin 0.3 (0.2-1.3) mg/dL AST 15 (14-36) U/L ALT 19 (9-52) U/L Alkaline Phosphatase 91 (38-126) U/L Total Creatine Kinase 33 (30-135) U/L CK-MB (CK-2) 2.4 (0.0-2.4) ng/mL CK-MB (CK-2) Rel Index 7.3 Troponin I <0.012 (0.000-0.034) ng/mL NT-Pro-B Natriuret Pep pg/mL Total Protein 7.0 (6.3-8.2) g/dL Albumin 4.1 (3.5-5.0) g/dL 05/21/18 05/21/18 Range/Units 00:35 00:35 WBC (3.8-10.6) k/uL RBC (3.80-5.40) m/uL Hgb (11.4-16.0) gm/dL Hct (34.0-46.0) % MCV (80.0-100.0) fL MCH (25.0-35.0) pg MCHC (31.0-37.0) g/dL RDW (11.5-15.5) % Plt Count (150-450) k/uL Neutrophils % % Lymphocytes % % Monocytes % % Eosinophils % % Basophils % % Neutrophils # (1.3-7.7) k/uL Lymphocytes # (1.0-4.8) k/uL Monocytes # (0-1.0) k/uL Eosinophils # (0-0.7) k/uL Basophils # (0-0.2) k/uL Hypochromasia Anisocytosis PT 9.3 (9.0-12.0) sec INR 0.9 (<1.2) APTT 20.8 L (22.0-30.0) sec D-Dimer 0.20 (<0.60) mg/L FEU Sodium (137-145) mmol/L Potassium (3.5-5.1) mmol/L Chloride (98-107) mmol/L Carbon Dioxide (22-30) mmol/L Anion Gap mmol/L BUN (7-17) mg/dL Creatinine (0.52-1.04) mg/dL Est GFR (CKD-EPI)AfAm (>60 ml/min/1.73 sqM) Est GFR (CKD-EPI)NonAf (>60 ml/min/1.73 sqM) Glucose (74-99) mg/dL Calcium (8.4-10.2) mg/dL Total Bilirubin (0.2-1.3) mg/dL AST (14-36) U/L ALT (9-52) U/L Alkaline Phosphatase (38-126) U/L Total Creatine Kinase (30-135) U/L CK-MB (CK-2) (0.0-2.4) ng/mL CK-MB (CK-2) Rel Index Troponin I (0.000-0.034) ng/mL NT-Pro-B Natriuret Pep 93 pg/mL Total Protein (6.3-8.2) g/dL Albumin (3.5-5.0) g/dL Critical Care Time Critical Care Time: Yes (30 minutes) Disposition Clinical Impression: COPD (chronic obstructive pulmonary disease) with emphysema, Pneumonia Disposition: HOME SELF-CARE Condition: Poor
== END 2018-05-30 12:55 | disposition home or self-care (01) | DRG 190 ==
LOC: EC 00:20 → 6SEL 03:10
PROVIDERS: ADMIT Family Medicine; ATTEND Family Medicine
PROC: 5A09457 Assistance with Respiratory Ventilation, 24-96 Consecutive Hours, Continuous Positive Airway Pressure (ICD-10-PCS; principal; 2018-05-21)
DX: J44.1 Chronic obstructive pulmonary disease with (acute) exacerbation (principal); J96.21 Acute and chronic respiratory failure with hypoxia; J96.22 Acute and chronic respiratory failure with hypercapnia; E44.0 Moderate protein-calorie malnutrition; R64 Cachexia; E78.5 Hyperlipidemia, unspecified; F17.210 Nicotine dependence, cigarettes, uncomplicated; M50.20 Other cervical disc displacement, unspecified cervical region; M51.26 Other intervertebral disc displacement, lumbar region; F32.9 Major depressive disorder, single episode, unspecified; F41.9 Anxiety disorder, unspecified; G25.81 Restless legs syndrome; I25.10 Atherosclerotic heart disease of native coronary artery without angina pectoris; I25.2 Old myocardial infarction; K21.9 Gastro-esophageal reflux disease without esophagitis; M19.90 Unspecified osteoarthritis, unspecified site; H26.9 Unspecified cataract; L30.9 Dermatitis, unspecified; M47.816 Spondylosis without myelopathy or radiculopathy, lumbar region; M47.812 Spondylosis without myelopathy or radiculopathy, cervical region; R51 Headache; H93.13 Tinnitus, bilateral; Z79.51 Long term (current) use of inhaled steroids; Z79.52 Long term (current) use of systemic steroids; Z85.41 Personal history of malignant neoplasm of cervix uteri; Z87.11 Personal history of peptic ulcer disease; Z90.710 Acquired absence of both cervix and uterus; Z99.81 Dependence on supplemental oxygen; Z86.14 Personal history of Methicillin resistant Staphylococcus aureus infection; Z88.1 Allergy status to other antibiotic agents; Z88.5 Allergy status to narcotic agent; Z88.8 Allergy status to other drugs, medicaments and biological substances; Z87.01 Personal history of pneumonia (recurrent); Z90.49 Acquired absence of other specified parts of digestive tract; Z68.20 Body mass index [BMI] 20.0-20.9, adult; Z80.0 Family history of malignant neoplasm of digestive organs; Z81.1 Family history of alcohol abuse and dependence
CPT/HCPCS: 36415; 71045; 80048; 80053; 82550; 82553; 83880; 84484; 85025; 85379; 85610; 85730; 87040; 93005; 94640; 94660; 94760

== ENCOUNTER 2018-06-09 06:54 | Emergency (ER) | payer OTHER ==
[2018-06-09] MEDS ORDERED: CALCIUM CHLORIDE 100 MG/ML 10 ML SYRINGE ONE (07:00)
[2018-06-09] MEDS ORDERED: EPINEPHrine 10 ML SYRINGE (0.1 MG/ML) ONE (07:00)
[2018-06-09] MEDS ORDERED: SODIUM BICARB 8.4% 50 ML SYR (1 MEQ/ML) ONE (07:00)
--- NOTE | 2018-06-09 07:22 | ED ---
CPR HPI - General Chief Complaint: Cardiac Arrest/CPR Stated Complaint: Cardiac Arrest Time Seen by Provider: 06/09/18 07:08 Source: EMS Mode of arrival: EMS Limitations: physical limitation - History of Present Illness Initial Comments: Ameena is a 40-year-old female with end-stage COPD who presents the ED via EMS in cardiac arrest. Per EMS family last spoke to the patient has 6:15 AM, 911 was called at 6:34 AM when the patient was found unresponsive. EMS reports they arrived on scene at 7:40 AM, however due to the condition of the patient's home they were unable to initiate CPR until the patient was removed from the they suspect there is a 2-4 minute delay in initiating CPR. CPR was performed in route to the hospital, the patient was noted to be asystole on the monitor, she received 2 rounds of epinephrine with no change. - Related Data Home Medications Medication Instructions Recorded Confirmed Albuterol Inhaler [Ventolin Hfa 2 puff INHALATION RT-QID PRN 01/03/14 05/21/18 Inhaler] Omeprazole [PriLOSEC] 40 mg PO BID 01/03/14 05/21/18 risperiDONE 3 mg PO HS 12/24/14 05/21/18 traZODone HCL 300 mg PO HS 12/24/14 05/21/18 Theophylline 24 Hour [Akhil-24] 200 mg PO BID 07/06/17 05/21/18 Fluticasone Nasal [place] [Flonase 2 spray EA NOSTRIL DAILY 12/21/17 05/21/18 Nasal [place]] Pregabalin [Lyrica] 150 mg PO BID 12/21/17 05/21/18 Grant/D3/Mag11/Zinc/Check Writer Salesperson/Gianni/Bor 1 tab PO DAILY 03/13/18 05/21/18 [Caltrate 600+D Plus Tablet] HYDROcodone/APAP 5-325MG [[employer] 1 tab PO BID 03/13/18 05/21/18 5-325] Umeclidinium [place] [Incruse 1 puff INHALATION RT-DAILY 03/13/18 05/21/18 Ellipta] Ipratropium [place] [Atrovent Hfa] 2 puff INHALATION RT-QID PRN 03/25/18 Multivitamins, Thera [Multivitamin 1 tab PO DAILY@1200 03/25/18 05/21/18 (formulary)] buPROPion HCL [Wellbutrin SR] 150 mg PO HS 03/25/18 05/21/18 Ibuprofen [Motrin] 800 mg PO Q6H PRN 05/21/18 05/21/18 Previous Rx's Medication Instructions Recorded Budesonide-Formot 160-4.5 Mcg 2 puff INHALATION RT-BID puff 07/13/16 [Symbicort 160-4.5 Mcg Inhaler] Ipratropium-Albuterol Nebulize 3 ml INHALATION RT-QID #0 neb 04/03/18 [Duoneb 0.5 mg-3 mg/3 ml Soln] predniSONE 20 mg PO DAILY #0 04/03/18 Metoprolol Tartrate [Lopressor] 12.5 mg PO BID #60 tab 05/30/18 Verapamil Sr [Isoptin Sr] 240 mg PO DAILY #30 tablet.er 05/30/18 hydrALAZINE HCL [Apresoline] 25 mg PO TID PRN 90 Days #90 tab 05/30/18 Allergies Allergy/AdvReac Type Severity Reaction Status Date / Time aripiprazole [From Abilify] Allergy Rash/Hives Verified 06/09/18 07:01 cephalexin [From Keflex] Allergy Unknown Verified 06/09/18 07:01 honey Allergy Rash/Hives Verified 06/09/18 07:01 methadone [Methadone] Allergy Itching Verified 06/09/18 07:01 naproxen Allergy Rash/Hives Verified 06/09/18 07:01 sulfamethoxazole Allergy Rash/Hives Verified 06/09/18 07:01 [From Bactrim] tetracycline [Tetracycline] Allergy Rash/Hives Verified 06/09/18 07:01 trimethoprim [From Bactrim] Allergy Rash/Hives Verified 06/09/18 07:01 adhesive tape AdvReac Rash/Hives Verified 06/09/18 07:01 tramadol HCl [From Ultram] AdvReac SEIZURES Verified 06/09/18 07:01 tromethamine AdvReac Nausea & Verified 06/09/18 07:01 Vomiting Review of Systems ROS Statement: Those systems with pertinent positive or pertinent negative responses have been documented in the HPI. ROS Other: All systems not noted in ROS Statement are negative. Limitations: ROS unobtainable due to patients medical condition Past Medical History Past Medical History: Cancer, Chest Pain / Angina, COPD, Eye Disorder, GERD/ Reflux, Hyperlipidemia, Osteoarthritis (OA), Pneumonia, Respiratory Disorder Additional Past Medical History / Comment(s): past thoracic spine fractures T8- T9, possible oseoporosis. End stage COPD , chronic hypoxic and hypercapnic respiratory failure, home O2 at 5-6L/NC and bipap at HS, steroid dependent, bronchitis, 1997 pt states she was told her EKG showed a past CA, cervical cancer with hysterectomy, PUD, carpal tunnel bilaterally, herniated discs C5-C6 and L5-L6, cervical/lumbar spondylosis, RLS, eczema, cataract L eye, tinnitis bilaterally, sinus problems. Last Myocardial Infarction Date:: UNK History of Any Multi-Drug Resistant Organisms: MRSA Date of last positivie culture/infection: 06/18/15 MDRO Source:: Sputum Past Surgical History: Section, Cholecystectomy, Ear Surgery, Hysterectomy, Tubal Ligation Additional Past Surgical History / Comment(s): x 2, EGD, colonoscopy with benign polypectomy, R ear cyst with surgery.. Past Anesthesia/Blood Transfusion Reactions: No Reported Reaction Additional Past Anesthesia/Blood Transfusion Reaction / Comment(s): Pt has never recieved blood. Past Psychological History: Anxiety, Bipolar, Depression Smoking Status: Current some day smoker Past Alcohol Use History: None Reported Past Drug Use History: None Reported - Past Family History Father Family Medical History: No Reported History Additional Family Medical History / Comment(s): WAS AN ALCOHOLIC Mother Family Medical History: Cancer Additional Family Medical History / Comment(s): AT AGE 54-BOWEL CANCER General Exam - General Exam Comments Initial Comments: GENERAL: Unresponsive HENT: Normocephalic, Atraumatic. EYES: Pupils are fixed and dilated, 5 mm bilaterally, no corneal reflexes PULMONARY: No spontaneous respirations Diffuse wheezing with bagging respirations CARDIOVASCULAR: Asystole Hands are cold palpable pulses ABDOMEN: Abdominal distention with visible hernia SKIN: cyanotic NEUROLOGIC: Unresponsive, pupils fixed and dilated, no corneal reflexes, and no gag reflex Intubation without sedation MUSCULOSKELETAL: Diffuse atrophy PSYCHIATRIC: Unresponsive Limitations: no limitations Limitations: physical limitation Medical Decision Making - Medical Decision Making Patient was seen and evaluated immediately upon arrival to the emergency department Resuscitative efforts were continued per ACLS protocol Patient had bilateral wheezing breath sounds, no evidence for tension pneumothorax Patient received, 1 amp of sodium bicarb, 1 amp of calcium chloride, 2 rounds of epinephrine, patient was intubated, oxygen saturations increased to the high 90s Despite resuscitative efforts the patient remained unresponsive, fixed and dilated pupils Patient was pronounced at 7:06am Family was notified of patient's Patient care discussed with Dr. John who will sign patient's certificate Patient care discussed with medical practice administrator who states no need for autopsy Disposition Clinical Impression: Cardiopulmonary arrest Disposition: Is patient prescribed a controlled substance at d/c from ED?: No Referrals: Italo John MD [Primary Care Provider] - 1-2 days Preliminary Cause of : cardipulmonary arrest
== END 2018-06-09 09:15 | disposition expired ==
LOC: EC 06:54
DX: I46.9 Cardiac arrest, cause unspecified (principal); M62.58 Muscle wasting and atrophy, not elsewhere classified, other site; K46.9 Unspecified abdominal hernia without obstruction or gangrene; J44.9 Chronic obstructive pulmonary disease, unspecified; J96.12 Chronic respiratory failure with hypercapnia; J96.11 Chronic respiratory failure with hypoxia; K21.9 Gastro-esophageal reflux disease without esophagitis; F31.9 Bipolar disorder, unspecified; F41.9 Anxiety disorder, unspecified; F17.200 Nicotine dependence, unspecified, uncomplicated; Z88.1 Allergy status to other antibiotic agents; Z88.2 Allergy status to sulfonamides; Z88.5 Allergy status to narcotic agent; Z88.6 Allergy status to analgesic agent; Z88.8 Allergy status to other drugs, medicaments and biological substances; Z91.018 Allergy to other foods; Z91.048 Other nonmedicinal substance allergy status; Z79.51 Long term (current) use of inhaled steroids; Z79.891 Long term (current) use of opiate analgesic; Z79.899 Other long term (current) drug therapy; Z99.81 Dependence on supplemental oxygen; Z99.89 Dependence on other enabling machines and devices; Z85.41 Personal history of malignant neoplasm of cervix uteri; Z90.710 Acquired absence of both cervix and uterus; Z87.39 Personal history of other diseases of the musculoskeletal system and connective tissue; Z86.14 Personal history of Methicillin resistant Staphylococcus aureus infection; Z90.49 Acquired absence of other specified parts of digestive tract
CPT/HCPCS: 31500; 99285